=== PATIENT | female | born 1975 | race Caucasian/White ===

== ENCOUNTER 2017-06-14 16:49 | Emergency (ER) | payer OTHER ==
[2017-06-14 16:56] VITALS: BP 147/84
[2017-06-14] MEDS ORDERED: HYDROcodone/ACETAMIN 5-325 MG* 1 TAB PO ONE (17:09)
--- NOTE | 2017-06-14 17:09 | UC ---
Lower Extremity/Ankle HPI - HPI Summary HPI Summary: was walking a lot yesterday today right foot is swollen and tender hurts to wb on lateral edge - History of Current Complaint Chief Complaint: UCLowerExtremity Stated Complaint: FOOT COMPLAINT Time Seen by Provider: 06/14/17 16:58 Hx Obtained From: Patient Hx Last Menstrual Period: 06/14/17 ?: No Onset/Duration: Sudden Onset, Lasting Days - 1, Still Present Severity Initially: Moderate Severity Currently: Moderate Pain Intensity: 6 Pain Scale Used: 0-10 Numeric Aggravating Factor(s): Standing, Ambulation Alleviating Factor(s): Rest, Elevation Able to Bear Weight: Yes - with pain - Allergies/Home Medications Allergies/Adverse Reactions: Allergies Allergy/AdvReac Type Severity Reaction Status Date / Time No Known Allergies Allergy Verified 05/20/17 15:09 PMH/Surg Hx/FS Hx/Imm Hx Previously Healthy: No Cardiovascular History: Cardiac Disease GI/ History: Gastroesophageal Reflux, Other Other GI/ History: kidney disease - Surgical History Surgical History: None - Family History Known Family History: Positive: Hypertension - Social History Occupation: Disabled Lives: With Family Alcohol Use: None Substance Use Type: None Smoking Status (MU): Former Smoker Type: Cigarettes Amount Used/How Often: 1/2 ppd When Did the Patient Quit Smoking/Using Tobacco: 1 year ago Household Exposure Type: Cigarettes Review of Systems Constitutional: Negative Skin: Negative Eyes: Negative ENT: Negative Respiratory: Negative Cardiovascular: Negative Gastrointestinal: Negative Genitourinary: Negative Motor: Negative Neurovascular: Negative Musculoskeletal: Arthralgia - right foot 5th MT, Edema - right lateral foot Neurological: Negative Psychological: Negative All Other Systems Reviewed And Are Negative: Yes Physical Exam Triage Information Reviewed: Yes Appearance: Well-Appearing, Well-Nourished, Pain Distress Vital Signs: Initial Vital Signs Temp 97.9 F 06/14/17 16:52 Pulse 65 06/14/17 16:52 Resp 18 06/14/17 16:52 BP 147/84 06/14/17 16:52 Pulse Ox 98 06/14/17 16:52 Vital Signs Reviewed: Yes Eye Exam: Normal Eyes: Positive: Conjunctiva Clear ENT Exam: Normal ENT: Positive: Normal ENT inspection, Hearing grossly normal. Negative: Nasal congestion, Nasal drainage, Trismus, Muffled/hoarse voice Dental Exam: Normal Neck exam: Normal Neck: Positive: Supple, Nontender Respiratory Exam: Normal Respiratory: Positive: Chest non-tender, Lungs clear, Normal breath sounds, No respiratory distress, No accessory muscle use Cardiovascular Exam: Normal Cardiovascular: Positive: RRR, No Murmur, Pulses Normal, Brisk Capillary Refill Musculoskeletal Exam: Normal Musculoskeletal: Positive: Strength Intact, ROM Intact, No Edema Neurological Exam: Normal Neurological: Positive: Alert, Muscle Tone Normal Psychological Exam: Normal Skin Exam: Normal Diagnostics - Radiology No standard instances Xray Interpretation: No Acute Changes Radiology Interpretation Completed By: Radiologist Lower Extremity Course/Dx - Course Course Of Treatment: cam boot crutches, pain med, rice follow with ortho in 3-5 days - Differential Dx/Diagnosis Differential Diagnosis/HQI/PQRI: Cellulitis, Contusion, Fracture (Closed), Sprain, Strain Provider Diagnoses: Right foot injury Discharge - Discharge Plan Condition: Stable Disposition: HOME Prescriptions: Hydrocodone-Acetaminophen [Hydrocodone/Acetaminophen 5-325 mg] 1 tab PO TID PRN #15 tab MDD 3 PRN Reason: Pain Patient Education Materials: Crutch Instructions (ED), Foot Contusion (ED), Foot Sprain (ED), RICE Therapy (ED) Referrals: Regi Garnica [Primary Care Provider] - 2 Weeks Partha Alberto MD [Medical Doctor] - 5 Days
--- NOTE | 2017-06-14 17:39 | RAD ---
Indication: Right foot pain. 3 views of the right foot demonstrates no fracture. No other bone or joint abnormality is identified. IMPRESSION: No fracture of the right foot is noted.
== END 2017-06-14 18:05 | disposition home or self-care (01) ==
LOC: UCEAST 16:49
DX: S99.921A Unspecified injury of right foot, initial encounter (principal); X58.XXXA Exposure to other specified factors, initial encounter; Y93.01 Activity, walking, marching and hiking; K21.9 Gastro-esophageal reflux disease without esophagitis; N28.9 Disorder of kidney and ureter, unspecified; I25.10 Atherosclerotic heart disease of native coronary artery without angina pectoris; Z87.891 Personal history of nicotine dependence
CPT/HCPCS: 99213; G0463

== ENCOUNTER → 2017-08-14 15:27 | Emergency (ER) | payer OTHER ==
[~2017-08-14 15:27] MED LIST: Ketorolac INJ* 30 MG/ML 1 ML VIAL IV PUSH ONE; Magnesium Oxide TAB* 400 MG PO ONE; Meclizine TAB* 12.5 MG PO ONE; Metoclopramide IV* 5 MG/ML 2 ML VIAL IV ONE; Ondansetron INJ* 2 MG/ML VIAL IV ONE
--- NOTE | 2017-08-14 18:10 | RAD ---
INDICATION: Nausea and dizziness for one week. Elevated blood pressure. Renal failure. Asthma. COMPARISON: October 05, 2016 chest radiograph. TECHNIQUE: Dual energy PA and routine lateral views of the chest were obtained. REPORT: Clear lungs and pleural spaces. Negative for pneumothorax. The heart, pulmonary vasculature, and mediastinal contours are unremarkable. Negative for free air beneath the diaphragm. Unremarkable osseous structures and soft tissue contours. IMPRESSION: No evidence for acute intrathoracic disease.
--- NOTE | 2017-08-14 18:14 | RAD ---
Indication: Dizziness, nausea, vomiting, headache 1 week duration. Comparison: June 04, 2017 MRI. Technique: Noncontrast CT vertex of skull through foramen magnum. Report: Unremarkable cerebral sulci, ventricles, and basal cisterns. Unchanged finding of symmetric mildly prominent subarachnoid spaces over the frontal lobes. Negative for avila matter white matter obscuration, intra or extra-axial hemorrhage, or mass effect. Unremarkable orbital contents. No suspicious calvarial or skull base lesion evident. Unremarkable scalp. IMPRESSION: No acute intracranial process evident.
[2017-08-14 18:15] LABS: Hematocrit 51 % (35-47); Hemoglobin 17.7 g/dl (12.0-16.0); Mean Corpuscular HGB Conc 35 g/dl (31-36); Mean Corpuscular Hemoglobin 32 pg (27-31); Mean Corpuscular Volume 91 fL (80-97); Mean Platelet Volume 9 um3 (7.4-10.4); Red Cell Distribution Width 14 % (10.5-15); White Blood Count 9.1 10^3/ul (3.5-10.8)
[2017-08-14 18:16] LABS: Comments Flag Yes
[2017-08-14 18:19] LABS: Add Diff/Slide Review? Slide Review Added
[2017-08-14 18:30] LABS: Albumin 4.3 g/dL (3.2-5.2); BUN/Creatinine Ratio 8.9 (8-20); C Reactive Protein 2.62 mg/L (< 5.00); Calcium 9.9 mg/dL (8.6-10.3); EGFR African American 18.7 (>60); EGFR Non-African American 14.5 (>60); Globulin 2.9 g/dL (2-4); Magnesium 1.7 mg/dL (1.9-2.7); Potassium 4.8 mmol/L (3.5-5.0); Total Bilirubin 0.6 mg/dL (0.2-1.0); Total Protein 7.2 g/dL (6.4-8.9)
[2017-08-14 18:33] LABS: Urine Bacteria 1+ (Absent); Urine Bilirubin Negative (Negative); Urine Glucose Negative (Negative); Urine Nitrite Negative (Negative)
[2017-08-14 19:07] LABS: TSH (Thyroid Stimulating Horm) 8.48 mcIU/mL (0.34-5.60)
[2017-08-14 19:27] VITALS: BP 158/96
--- NOTE | 2017-08-16 18:28 | ED ---
Abilio Terry Alfonso scribed for Richardson Bautista MD on 08/14/17 at 1716 . Dizziness - HPI Summary HPI Summary: This patient is a 41 year old F presenting to [facility] accompanied by with a chief complaint of room spinning dizziness since one week ago. The patient rates the pain 9/10 in severity. Symptoms alleviated by nothing. Patient reports nausea, vomiting, and headache. Patient denies ear ache, rhinorrhea, sore throat, CP, palpation, blurred vision, and change in speech. - History Of Current Complaint Chief Complaint: EDDizziness Stated Complaint: DIZZY/NAUSEA/STAGE 5 RENAL FAILURE Time Seen by Provider: 08/14/17 16:53 Hx Obtained From: Patient Timing: Constant Severity Currently: Severe Character: Room Spinning Alleviating Factor(s): Nothing Associated Signs And Symptoms: Positive: Other: - Patient reports nausea, vomiting, and headache. Patient denies ear ache, rhinorrhea, sore throat, CP, palpation, blurred vision, and change in speech. - Allergies/Home Medications Allergies/Adverse Reactions: Allergies Allergy/AdvReac Type Severity Reaction Status Date / Time No Known Allergies Allergy Verified 06/30/17 14:32 PMH/Surg Hx/FS Hx/Imm Hx Endocrine/Hematology History: Reports: Hx Anemia Denies: Hx Diabetes, Hx Thyroid Disease Cardiovascular History: Reports: Hx Hypertension Denies: Hx Pacemaker/ICD Respiratory History: Reports: Hx Asthma Denies: Hx Chronic Obstructive Pulmonary Disease (COPD) GI History: Reports: Hx Gastroesophageal Reflux Disease Denies: Hx Ulcer History: Reports: Hx Chronic Renal Failure - stage 4, w/ polycystic kidney disease, Hx Renal Disease Sensory History: Denies: Hx Hearing Aid Neurological History: Reports: Hx Headaches, Hx Migraine, Hx Transient Ischemic Attacks (TIA) Psychiatric History: Reports: Hx Panic Disorder Infectious Disease History: No Infectious Disease History: Denies: Hx Clostridium Difficile, Hx Hepatitis, Hx Human Immunodeficiency Virus (HIV), Hx of Known/Suspected MRSA, Hx Shingles, Hx Tuberculosis, Hx Known/ Suspected VRE, Hx Known/Suspected VRSA, History Other Infectious Disease, Traveled Outside the [place] in Last 30 Days - Family History Known Family History: Positive: Hypertension - Social History Alcohol Use: None Substance Use Type: Reports: None Smoking Status (MU): Former Smoker Type: Cigarettes Amount Used/How Often: 1/2 ppd Review of Systems Negative: Blurred Vision Negative: Sore Throat, Ear Ache Negative: Palpitations, Chest Pain Positive: Vomiting, Nausea Neurological: Other - Room spinning dizziness; negative change in speech Positive: Headache All Other Systems Reviewed And Are Negative: Yes Physical Exam - Summary Physical Exam Summary: VITAL SIGNS: Reviewed. GENERAL: Patient is a well-developed and nourished female who is lying comfortable in the stretcher. Patient is not in any acute respiratory distress. HEAD AND FACE: No signs of trauma. No ecchymosis, hematomas or skull depressions. No sinus tenderness. Positive vertigo on head movement. EYES: PERRLA, EOMI x 2, No injected conjunctiva, no nystagmus. No photophobia. EARS: Hearing grossly intact. Ear canals and tympanic membranes are within normal limits. MOUTH: Oropharynx within normal limits. NECK: Supple, trachea is midline, no adenopathy, no JVD, no carotid bruit, no c- spine tenderness, neck with full ROM. No meningeal signs, no Kernig's or brudzinskis signs. CHEST: Symmetric, no tenderness at palpation LUNGS: Clear to auscultation bilaterally. No wheezing or crackles. CVS: Regular rate and rhythm, S1 and S2 present, no murmurs or gallops appreciated. ABDOMEN: Soft, non-tender. No signs of distention. No rebound no guarding, and no masses palpated. Bowel sounds are normal. EXTREMITIES: FROM in all major joints, no edema, no cyanosis or clubbing. NEURO: Alert and oriented x 3. No acute neurological deficits. Speech is normal and follows commands. SKIN: Dry and warm GCS: 15 Triage Information Reviewed: Yes Vital Signs On Initial Exam: Initial Vitals Temp Pulse Resp BP Pulse Ox 96.4 F 75 20 186/103 98 08/14/17 15:37 08/14/17 15:37 08/14/17 15:37 08/14/17 15:37 08/14/17 15:37 Vital Signs Reviewed: Yes - Kajal Coma Scale Coma Scale Total: 15 Diagnostics - Vital Signs Vital Signs Temp Pulse Resp BP Pulse Ox 08/14/17 16:43 67 98 08/14/17 16:41 186/156 08/14/17 15:37 96.4 F 75 20 186/103 98 - Laboratory Lab Results: Lab Results 08/14/17 08/14/17 08/14/17 Range/Units 18:02 18:02 18:02 WBC 9.1 (3.5-10.8) 10^3/ul RBC 5.60 H (4.0-5.4) 10^6/ul Hgb 17.7 H (12.0-16.0) g/dl Hct 51 H (35-47) % MCV 91 (80-97) fL MCH 32 H (27-31) pg MCHC 35 (31-36) g/dl RDW 14 (10.5-15) % Plt Count 173 (150-450) 10^3/ul MPV 9 (7.4-10.4) um3 Neut % (Auto) 69.6 (38-83) % Lymph % (Auto) 19.8 L (25-47) % [place] % (Auto) 7.4 (1-9) % Eos % (Auto) 2.3 (0-6) % Baso % (Auto) 0.9 (0-2) % Absolute Neuts (auto) 6.4 (1.5-7.7) 10^3/ul Absolute Lymphs (auto) 1.8 (1.0-4.8) 10^3/ul Absolute Monos (auto) 0.7 (0-0.8) 10^3/ul Absolute Eos (auto) 0.2 (0-0.6) 10^3/ul Absolute Basos (auto) 0.1 (0-0.2) 10^3/ul Absolute Nucleated RBC 0.08 10^3/ul Nucleated RBC % 0.9 Sodium 136 (133-145) mmol/L Potassium 4.8 (3.5-5.0) mmol/L Chloride 106 (101-111) mmol/L Carbon Dioxide 24 (22-32) mmol/L Anion Gap 6 (2-11) mmol/L BUN 31 H (6-24) mg/dL Creatinine 3.47 H (0.51-0.95) mg/dL Est GFR ( Amer) 18.7 (>60) Est GFR (Non-Af Amer) 14.5 (>60) BUN/Creatinine Ratio 8.9 (8-20) Glucose 93 (70-100) mg/dL Calcium 9.9 (8.6-10.3) mg/dL Magnesium 1.7 L (1.9-2.7) mg/dL Total Bilirubin 0.60 (0.2-1.0) mg/dL AST 15 (13-39) U/L ALT 10 (7-52) U/L Alkaline Phosphatase 44 (34-104) U/L Total Creatine Kinase 35 (10-223) U/L Troponin I 0.00 (<0.04) ng/mL C-Reactive Protein 2.62 (< 5.00) mg/L B-Natriuretic Peptide 15 ( - 100) pg/mL Total Protein 7.2 (6.4-8.9) g/dL Albumin 4.3 (3.2-5.2) g/dL Globulin 2.9 (2-4) g/dL Albumin/Globulin Ratio 1.5 (1-3) TSH 8.48 H (0.34-5.60) mcIU/mL Urine Color Urine Appearance Urine pH (5-9) Ur Specific [place] (1.010-1.030) Urine Protein (Negative) Urine Ketones (Negative) Urine Blood (Negative) Urine Nitrate (Negative) Urine Bilirubin (Negative) Urine Urobilinogen (Negative) Ur Leukocyte Esterase (Negative) Urine WBC (Auto) (Absent) Urine RBC (Auto) (Absent) Ur Squamous Epith Cells (Absent) Urine Bacteria (Absent) Urine Glucose (Negative) 08/14/17 Range/Units 18:02 WBC (3.5-10.8) 10^3/ul RBC (4.0-5.4) 10^6/ul Hgb (12.0-16.0) g/dl Hct (35-47) % MCV (80-97) fL MCH (27-31) pg MCHC (31-36) g/dl RDW (10.5-15) % Plt Count (150-450) 10^3/ul MPV (7.4-10.4) um3 Neut % (Auto) (38-83) % Lymph % (Auto) (25-47) % [place] % (Auto) (1-9) % Eos % (Auto) (0-6) % Baso % (Auto) (0-2) % Absolute Neuts (auto) (1.5-7.7) 10^3/ul Absolute Lymphs (auto) (1.0-4.8) 10^3/ul Absolute Monos (auto) (0-0.8) 10^3/ul Absolute Eos (auto) (0-0.6) 10^3/ul Absolute Basos (auto) (0-0.2) 10^3/ul Absolute Nucleated RBC 10^3/ul Nucleated RBC % Sodium (133-145) mmol/L Potassium (3.5-5.0) mmol/L Chloride (101-111) mmol/L Carbon Dioxide (22-32) mmol/L Anion Gap (2-11) mmol/L BUN (6-24) mg/dL Creatinine (0.51-0.95) mg/dL Est GFR ( Amer) (>60) Est GFR (Non-Af Amer) (>60) BUN/Creatinine Ratio (8-20) Glucose (70-100) mg/dL Calcium (8.6-10.3) mg/dL Magnesium (1.9-2.7) mg/dL Total Bilirubin (0.2-1.0) mg/dL AST (13-39) U/L ALT (7-52) U/L Alkaline Phosphatase (34-104) U/L Total Creatine Kinase (10-223) U/L Troponin I (<0.04) ng/mL C-Reactive Protein (< 5.00) mg/L B-Natriuretic Peptide ( - 100) pg/mL Total Protein (6.4-8.9) g/dL Albumin (3.2-5.2) g/dL Globulin (2-4) g/dL Albumin/Globulin Ratio (1-3) TSH (0.34-5.60) mcIU/mL Urine Color Straw Urine Appearance Clear Urine pH 5.0 (5-9) Ur Specific [place] 1.005 L (1.010-1.030) Urine Protein 1+(30 mg/dl) H (Negative) Urine Ketones Negative (Negative) Urine Blood 2+ H (Negative) Urine Nitrate Negative (Negative) Urine Bilirubin Negative (Negative) Urine Urobilinogen Negative (Negative) Ur Leukocyte Esterase Negative (Negative) Urine WBC (Auto) Trace(0-5/hpf) (Absent) Urine RBC (Auto) 2+(6-10/hpf) H (Absent) Ur Squamous Epith Cells Present H (Absent) Urine Bacteria 1+ H (Absent) Urine Glucose Negative (Negative) Result Diagrams: 08/14/17 18:02 08/14/17 18:02 Lab Statement: Any lab studies that have been ordered have been reviewed, and results considered in the medical decision making process. - Radiology CXR Radiology Interpretation Completed By: Radiologist - No evidence for acute intrathoracic disease. ED physician has reviewed this radiology report and agrees. - CT Brain CT Interpretation Completed By: Radiologist - No acute intracranial process evident. ED physician has reviewed this radiology report and agrees. - EKG 1802 Cardiac Rate: NL - BPM 60 EKG Rhythm: Sinus Rhythm EKG Interpretation: No ST elevation. Normal axis. Q waves in II III and AVF. Dizzy Course/Dx - Course Assessment/Plan: This patient is a 41 year old F presenting to [facility] accompanied by with a chief complaint of room spinning dizziness since one week ago. The patient rates the pain 9/10 in severity. Symptoms alleviated by nothing. Patient reports nausea, vomiting, and headache. Patient denies ear ache, rhinorrhea, sore throat, CP, palpation, blurred vision, and change in speech. Test results show an H&H of 17.7/51. BUN of 31 and creating of 3.47 which is her baseline since she has stage 4 chronic renal failure. Magnesium of 1.7 for which she was given magnesium PO. Urinalysis was contaminated therefore culture will be sent. An EKG reveals NSR. CXR reveals No evidence for acute intrathoracic disease. ED physician has reviewed this radiology report and agrees. Brain CT reveals No acute intracranial process evident. ED physician has reviewed this radiology report and agrees. I decided to do a bran CT because this vertigo is different than her usual vertigo. In the ED course the patient was given Antivert for the vertigo, IV fluids, and then she developed a headache for which he was given Reglan and Toradol. After these medications were given her symptoms improved. Therefore she will be discharged with PCP follow up. The patient is agreeable with this plan. The patient is hemodynamically stable and alert and oriented x3. - Diagnoses Provider Diagnoses: Vertigo, Headache, Chronic renal failure Discharge - Discharge Plan Condition: Stable Disposition: HOME Patient Education Materials: Vertigo (ED), Acute Headache (ED), Chronic Kidney Disease (ED) Referrals: Regi Garnica [Primary Care Provider] - 3 Days Additional Instructions: RETURN TO THE EMERGENCY DEPARTMENT FOR CHANGING OR WORSENING SYMPTOMS. The documentation as recorded by the Abilio ewing Alfonso accurately reflects the service I personally performed and the decisions made by , Richardson Bautista MD.
== END | disposition home or self-care (01) ==
LOC: ED 15:27
DX: R42 Dizziness and giddiness (principal); R51 Headache; R11.2 Nausea with vomiting, unspecified; N18.4 Chronic kidney disease, stage 4 (severe); I10 Essential (primary) hypertension; J45.909 Unspecified asthma, uncomplicated; K21.9 Gastro-esophageal reflux disease without esophagitis; F41.0 Panic disorder [episodic paroxysmal anxiety]; Z87.891 Personal history of nicotine dependence
CPT/HCPCS: 36415; 70450; 71020; 80053; 81003; 81015; 82550; 83735; 83880; 84443; 84484; 85025; 86140; 87086; 93005; 96374; 96375; 99282; A9270-GY; J1885; J2405; J2765

== ENCOUNTER 2017-12-22 10:15 | Emergency (ER) | payer OTHER ==
[2017-12-22 10:46] LABS: ABS Basophils 0.1 10^3/ul (0-0.2); ABS Eosinophils 0.1 10^3/ul (0-0.6); ABS Lymphocytes 1.4 10^3/ul (1.0-4.8); ABS Monocytes 0.5 10^3/ul (0-0.8); ABS Neutrophils 4.3 10^3/ul (1.5-7.7); ABS Nucleated RBC 0 10^3/ul; Eosinophil % 2.3 % (0-6); Hematocrit 45 % (35-47); Hemoglobin 15.7 g/dl (12.0-16.0); Lymphocyte % 21.8 % (25-47); Mean Corpuscular HGB Conc 35 g/dl (31-36); Mean Corpuscular Hemoglobin 32 pg (27-31); Mean Corpuscular Volume 92 fL (80-97); Mean Platelet Volume 10 um3 (7.4-10.4); Nucleated Red Blood Cells % 0; Platelet Count 132 10^3/ul (150-450); Red Blood Count 4.94 10^6/ul (4.0-5.4); Red Cell Distribution Width 14 % (10.5-15); White Blood Count 6.5 10^3/ul (3.5-10.8)
[2017-12-22 11:18] LABS: EGFR Non-African American 11.4 (>60)
--- OUTSIDE RECORDS SUMMARY | 2017-12-22 12:46 | XMS REPORT ---
:1975 External Reference #:[id number] Author Organization [facility] Address [address] [address] Phone [phone] Care Team Providers Name Role Phone Eli Oliveira MD Care Team Information Talent Advisor Unavailable Payers Type Date Identification Numbers Payment Provider Subscriber Commercial Effective: Policy Number: Matt Toney 2011 [id number] PayID: [id number] [address] [place] [address] Problems Date Description Provider Status Onset: 05/23/2015 Mixed hyperlipidemia Eli Oliveira MD Active Onset: 09/07/2015 Essential hypertension Regi Garnica RN MS Active [employer] HOU[employer]OM OPERATOR Onset: 10/15/2016 Chronic kidney disease Prashanth Davidson PA Active Onset: 10/15/2016 Chronic obstructive lung disease Prashanth Davidson PA Active Onset: 10/15/2016 Smoker Prashanth Davidson PA Active Onset: 02/04/2007 Benign essential hypertension Regi Garnica RN MS Inactive [employer] HOUSE [employer]OL ROOM OPERATOR Inactive: 10/15/2016 Family History Date Family Member(s) Problem(s) Comments Father Hypertension Father Polycystic Kidney Disease Mother Asthma Mother COPD Mother Hypertension Mother Hypercholesterolemia Mother Anxiety Maternal Grandmother Hypercholesterolemia Maternal Grandmother Hypertension Maternal Grandmother CAD Maternal Grandmother CABG x 3 Social History Type Date Description Comments Cigarette Use Quit - Age 40 Smoking Patient is a former smoker Quit at age 40. 20yr at 0.5pk/day Daily Caffeine Consumes on average 1 soda per day Allergies, Adverse Reactions, Alerts Date Description Reaction Status Severity Comments 02/12/2006 NKDA active Medications Medication Date Status Form Strength Qnty SIG Indications Ordering Provider Oseltamivir 12/01/ Hx Capsules 75mg 10cap 1 by mouth J06.9 [place], Phosphate 2018 - s twice a day Eli 12/06/ for 5days MD Zofia 2018 Atorvastatin 11/26/ Active Tablets 10mg 90tab 1 by mouth E78.2 Danika Calcium 2018 s every day Regi Tang RN MS [employer] ROOM OPERATOR 8 Hour 11/26/ Active Tablets ER 650mg 90tab one Tab M25.569 Danika Arthritis Pain 2018 s tid For Regi Reliever Arthritis Clyde RN MS Pain [employer] ROOM OPERATOR Ondansetron 11/26/ Active Tablets 4mg 30tab one tab as R11.10 Danika, HCL 2018 s needed Regi every 8 Clyde RN MS hours for [employer] ROOM OPERATOR nausea Lorazepam 11/18/ Active Tablets 0.5mg 4tabs 1-2 tabs F41.1 Danika, 2018 11/04-1 Regi hours Clyde RN MS Prior To [employer] ROOM OPERATOR [employer] Diltiazem CD 07/24/ Active Caps ER 240mg 30cap 1 by mouth I10 Danika, 2016 24HR s every day Regi Per Clyde ELIZONDO, RN MS Hessin [employer] ROOM OPERATOR KP Aspirin 07/24/ Active Tablets DR 81mg 30tab 1 by mouth Danika, 2016 s every day Regi Per Neuro Clyde RN MS [employer] ROOM OPERATOR Magnesium 07/24/ Active Capsules 400mg 90cap one once a N18.4 Marcia Garnica 2016 s day Regi Tang RN MS [employer] ROOM OPERATOR Calcitriol 05/27/ Active Capsules 0.25mcg 90cap one cap Danika, 2016 s daily Regi Tang RN MS [employer] ROOM OPERATOR Baclofen 05/23/ Active Tablets 10mg 60tab 1 tab twice M79.605 Danika, 2016 s a day as Regi needed for Clyde RN MS muscle [employer] ROOM OPERATOR spasms Flintstones 03/03/ Active Chewtabs 1 tablet Roxanne, Plus Iron 2016 twice daily Eli Armijo MD Albuterol 01/02/ Active Nebulizer (2.5mg/3ML 750ml 1 vial in J06.9 Danika, Sulfate 2016 ) 0.083% neb. q4hr Regi as needed Clyde RN MS [employer] ROOM OPERATOR Cetirizine HCL 11/08/ Active Tablets 10mg 90tab take one J45.40 Danika, 2016 s tablet by Regi mouth every C, RN MS day for [employer] ROOM OPERATOR allergy symptoms Advair Diskus 10/15/ Active Aerosol 250-50mcg/ 60uni Inhale One J45.40 Danika, 2015 Dose ts puff By Regi Mouth Twice C, RN MS A Day [employer] ROOM OPERATOR Ipratropium 09/11/ Active Solution 0.5-2.5(3) 360un Inhale The J45.40 Danika [place] 2016 mg/3ML its Contents Of Regi rol Sulfate One Vial C, RN MS Via [employer] ROOM OPERATOR Nebulizer Four Times A Day For 7 Days Oxycodone-Acet 10/09/ Active Tablets 5-325mg 60tab 1 tablet by R51 Danika aminophen 2014 s mouth twice Regi a day as C, RN MS needed for [employer] ROOM OPERATOR pain Furosemide 10/09/ Active Tablets 20mg 30tab take 1 tab Saridam, 2014 s everyday Eli MD Zoifa Hydroxyzine 08/24/ Active Tablets 10mg 45tab take one to F41.1 Roxanne HCL 2014 s three Eli tablets by MD Zofia mouth every 6 hours as needed for anxiety may take3- 5 tablets by mouth at bedtime for sleep Escitalopram 08/24/ Active Tablets 10mg 90tab Take One F41.1 Danika Oxalate 2014 s Tablet By Regi Mouth Every C, RN MS Day [employer] ROOM OPERATOR Meclizine HCL 02/15/ Active Tablets 25mg 30tab 1/2-1 by 386.11 Danika 2014 s mouth three Regi times a day C, RN MS as needed [employer] ROOM OPERATOR Ventolin HFA 04/01/ Active Aerosol 108(90Base 18uni Inhale Two J45.40 Danika, 2012 ) mcg/Act ts Puffs By Regi Mouth Every C, RN MS 6 To 8 [employer] ROOM OPERATOR Hours as Needed Lisinopril 04/16/ Active Tablets 30mg 90tab take one I10 Danika 2011 s tablet by Regi mouth every C, RN MS day [employer] ROOM OPERATOR Omeprazole 04/16/ Active Capsules DR 40mg 30cap Take One K21.9 Roxanne 2011 s Capsule By Eli Mouth Every MD Zofia Day R10.13 Nortriptyline 12/10/2010 Active Capsules 25mg 30caps Take One G43.109 JAMAL Garnica Capsule By Regi Mouth At C, RN MS Bedtime [employer] ROOM OPERATOR Singulair 12/12/2004 Active Tablets 10mg 90tabs take one J45.20 Danika, tablet by Regi mouth every C, RN MS day [employer] ROOM OPERATOR Azithromycin 09/22/2017 Hx Tablets 500mg 3tabs 1 by mouth J15.9 Roxanne , - every day Eli 10/02/2017 MD Zofia Guaifenesin-Code 09/22/2017 Hx Syrup 100-1 180ml 5ml by J15.9 Roxanne, ine - 0mg/5 mouth every Eli 10/02/2017 ML 4 hours as MD Zofia needed cough Magnesium-Oxide 07/24/2017 Hx Tablets 400(2 90tabs take one N18.4 Danika, - 41.3m tablet by Regi 07/24/2017 g) mg mouth every C, RN MS day [employer] ROOM OPERATOR 8 Hour Pain 05/23/2017 Hx Tablets ER 650mg Arthritis M79.604 Danika, Relief - Pain Med, [facility] 11/26/2017 Tylenol Up Clyde RN MS To 3 Times [employer] HOUSE [employer] ROOM OPERATOR A Day. Ativan 05/23/2017 Hx Tablets 0.5mg 4tabs 1-2 tabs F41.1 Danika, - 1/2-1 [facility] 11/18/2017 hours HANSEL Tang MS Prior To [employer] ROOM OPERATOR [employer] Please Consider 05/23/2017 Hx stage 4 Danika, Excusing From - kidney [facility] [employer] 11/26/2017 disease, C RN MS needs freq [employer] ROOM OPERATOR bathroom breaks, migraine headache freq, recent TIA attack, need no stress at this time, Promethazine HCL 05/01/2017 Hx Suppository 25mg 12units one per Danika , - rectum as [facility] 11/26/2017 needed ( Clyde RN MS after [employer] ROOM OPERATOR unwrapping) for nausea or vomiting every 6-8 hours Amoxicillin 03/03/2017 Hx Capsules 500mg 10caps 500 mg 1 Macadam, - tab every Eli 04/23/2017 12 hours x MD Zofia 5 days Vitamin D 01/02/2017 Hx Capsules 61991 10caps one cap E55.9 Danika, (Ergocalciferol) - Unit weekly x 10 Regi 03/03/2017 weeks HANSEL Tang MS [employer] ROOM OPERATOR Prednisone 01/02/2017 Hx Tablets 10mg 30tabs 4 tabs q am J06.9 Danika, - x3 days Regi 05/01/2017 then 3tabs C, RN MS x 3 days, [employer] ROOM OPERATOR then2 tabs x3 d then 1tabs x3d Duloxetine HCL 11/08/[address] Part 30mg 90caps Once Daily, F33.9 Danika, - Increase To Regi 03/03/2017 2 Tabs C, RN MS After 2 [employer] ROOM OPERATOR Weeks If No Change Nicotrol 10/15/2016 Hx Inhaler 10mg 168unit Inhale 1 F17.210 Macadam, - s every Eli 04/23/2017 2-3hrs prn MD Zofia Biaxin 09/17/2016 Hx Tablets 500mg 20tabs One Tab bid R06.02 Danika, - X 10 Days [facility] 09/27/2016 C, RN MS [employer] ROOM OPERATOR Mucinex 09/11/2016 Hx Tablets ER 600mg 30tabs 1 tab per J45.40 [place], - 12HR oral twice Eli 04/23/2017 a day MD Zofia Cheratussin ac 08/23/2016 Hx Solution 100-1 118ml 1- teaspoon R06.02 Danika, - 0mg/5 at bedtime, [facility] 09/02/2016 ML may repeat C, RN MS x 1 after 4 [employer] ROOM OPERATOR hours if still needed Biaxin 08/23/2016 Hx Tablets 500mg 20tabs One Tab bid R06.02 Danika, - X 10 Days Regi 09/11/2016 C, RN MS [employer] ROOM OPERATOR Prednisone 08/23/2016 Hx Tablets 10mg 30tabs 4 tabs q am R06.02 Danika, - x3 days Regi 09/02/2016 then 3tabs C, RN MS x 3 days, [employer] ROOM OPERATOR then2 tabs x3 d then 1tabs x3d Cheratussin ac 11/23/2015 Hx Solution 100-1 120unit 1-2 J20.9 Danika, - 0mg/5 s teaspoon at [facility] 08/08/2016 ML bedtime, C, RN MS may repeat [employer] ROOM OPERATOR x 1 after 4 hours if still needed Biaxin 11/23/2015 Hx Tablets 500mg 14tabs On Tab bid J20.9 Danika, - Till Gone Regi 08/08/2016 C, RN MS [employer] ROOM OPERATOR Mirapex 11/23/2015 Hx Tablets 0.125 90tabs Take 2-3 G25.81 [place], - mg Hours Regi 03/03/2017 Before Bed, Clyde RN MS May Cause [employer] HOUSE CONTROL ROOM OPERATOR Daytime Drowsiness, Avoid Driving Levaquin 10/13/2015 Hx Tablets 500mg 50tabs once tab R31.9 Danika, - daily x 5 Regi 11/23/2015 days Clyde RN MS [employer]SE [employer] ROOM OPERATOR Cipro 10/13/2015 Hx Tablets 250mg 14tabs 1 by mouth R31.9 Danika, - twice a day Regi 11/23/2015 x 7 days Clyde RN MS [employer] ROOM OPERATOR Sumatriptan 10/12/2015 Hx Tablets 50mg Gavino, Succinate - [facility] 10/12/2015 MD Cari Sumatriptan 10/12/2015 Hx Tablets 100mg 30tabs take 1/2 to Gavino, Succinate - 1 tablet by [facility] 08/08/2016 mouth at MD Cari earliest onset of headache, may repeat once in 2 hours - max dose 2 tab qday Topamax 10/11/2015 Hx Tablets 25mg 30tabs take 1/2 Gavino, - tabs by [facility] 08/08/2016 mouth in in MD Cari the morning, may try up to 1 tab in 1 week if tolerated and additional benefit desired Maxalt-SLOT ATTENDANT 10/11/2015 Hx Tablets 10mg 12tabs take 1 Gavino, - Dispers tablet at [facility] 10/12/2015 onset of MD Cari aura, may repeat 1 dose in 2 hours maximum daily dose=2 tablets Doxazosin 06/23/2015 Hx Tablets 2mg One Tab bid I10 [place], Mesylate - Per Nephro Regi 03/03/2017 Clyde RN MS [employer] ROOM OPERATOR Feosol 05/23/2015 Hx Tablets 325(6 30tabs 1 by mouth D50.9 Roxanne, - 5Fe) every day Eli 03/03/2017 mg with vit c MD Zofia Vitamin B-12 05/23/2015 Hx Tablets 1000m 30tabs 1 by mouth 281.1 Saridam, - cg every day Eli 03/03/2017 MD Zofia Hydrocodone-Acet 06/01/2014 Hx Tablets 5-325 30tabs 1 tab by M54.31 Roxanne, aminophen - mg mouth tid [facility] 10/15/2016 as needed MD Zofia pain Amlodipine 06/01/2014 Hx Tablets 5mg 90tabs 1 by mouth I10 Danika, Besylate - every day Regi 03/03/2017 C, RN MS [facility] Labetalol HCL 06/01/2014 Hx Tablets 200mg 180tabs Take One I10 Danika, - Tablet By [facility] 07/24/2017 Mouth Twice C, RN MS A Day [employer] ROOM OPERATOR Robitussin ac 09/28/2013 Hx 240unit 10 ml qid 493.00 Roxanne, - s prn Eli 10/14/2013 MD Zofia Clarithromycin 02/10/2013 Hx Tablets 500mg 20tabs 1 po bid x 461.0 Macadam, - 10 d hold Eli 10/14/2013 simvastatin MD Zofia and nortriptili ne during Nicotine 01/14/2013 Hx Gum 2mg QS use as 305.1 Danika Polacrilex - directed [facility] 06/01/2014 C RN MS [facility] Kym 12/22/2012 Hx Tablets 180mg OTC One Daily 386.11 Danika, - uses for [facility] 10/15/2016 rash d/t C, RN MS desi [employer]OL ROOM OPERATOR exposure iin summer. Meclizine HCL 2012 Hx Tablets 25mg 30tabs 1/2-1 po 780.4 Danika, - tid prn [facility] 01/14/2013 C, RN MS [employer] ROOM OPERATOR Furosemide 10/15/2012 Hx Tablets 20mg 30tabs 1 by mouth 585.3 Danika, - every day Regi 06/12/2015 C, RN MS [employer] ROOM OPERATOR Simvastatin 10/15/2012 Hx Tablets 20mg 30tabs take one E78.2 Danika, - tablet by [facility] 11/26/2017 mouth every C, RN MS day before [employer] ROOM OPERATOR bed Hydrocodone/Acet 04/16/2012 Hx Tablets 5-325 20tabs 1-2 tabs q6 724.5 Danika aminophen - mg hrs prn [facility] 09/28/2013 severe pain C, RN MS [employer] ROOM OPERATOR Klaron 04/16/2012 Hx Lotion 10% 1units bid as 695.3 Danika, - Directed [facility] 03/03/2017 Clyde RN MS [employer] ROOM OPERATOR Calcitriol 03/03/2012 Hx Capsules 0.25m Once Daily 782.1 Danika, - cg Regi 03/03/2017 Clyde, RN MS [employer] ROOM OPERATOR Metronidazole 03/03/2012 Hx Gel 0.75% 1units apply to 695.3 Danika, - face bid Regi 12/22/2012 Clyde, RN MS [employer] ROOM OPERATOR Dexilant 03/03/[address] 60mg 30caps once daily 782.1 Danika, - Regi 04/16/2012 Clyde, RN MS [employer] ROOM OPERATOR Cyclobenzaprine 01/27/2012 Hx Tablets 10mg 30tabs Take 1/2 To 333.94 Danika, HCL - 1 Tablet By Regi 06/01/2014 Mouth At C, RN MS Bedtime as [employer]OL ROOM OPERATOR Needed For Leg Spasm Tramadol HCL 01/14/2012 Hx Tablets 50mg 60tabs take 1 784.0 Danika, - TAblet up Regi 06/01/2014 to 4 times C, RN MS a day as [employer] ROOM OPERATOR needed for pain. 724.5 Fluticasone 01/14/2012 - Hx Suspension 50mcg/Act 1units one spray R51 Danika, Propionate 10/09/2015 per each Regi nostril qd Clyde RN MS [employer] ROOM OPERATOR Ipratropium 10/01/2011 - Hx Solution 0.02% 60units use in J45.3 Danika, [place] 09/11/2016 nebulizer 0 Regi four times a Clyde, RN MS day [employer] ROOM OPERATOR J45.40 J45.998 Pantoprazole 09/30/2011 - Hx Tablets DR 40mg 90tabs 1 po qd 530.11 Danika, Sodium 04/16/2012 Regi Tang RN MS [employer] ROOM OPERATOR Clarithromycin 09/30/2011 - Hx Tablets 500mg 28tabs 1 po bid x 466.0 [place], 01/14/2012 14 d Eli Armijo MD Medrol Dosepak 09/30/2011 - Hx Tablets 4mg 1Pack as dir 493.00 Roxanne, 01/14/2012 Eli Armijo MD Robitussin ac 09/30/2011 - Hx 120ml 10 ml qid 493.00 [place], 01/14/2012 prn Eli Armijo MD Chantix 09/06/2011 - Hx Tablets 0.5mg 1tabs starter 305.1 Danika, 01/14/2012 pack, use as Regi directed Clyde RN MS [employer] ROOM OPERATOR Chantix 09/06/2011 - Hx Tablets 1mg 60tabs 1 po bid 305.1 [place], 12/22/2012 with lots of Regi Tang RN MS [facility] Albuterol Sulfate 03/29/2011 - Hx Nebulizer (2.5mg 1Box 1 vial in J45.40 [facility], 10/15/2016 /3ML) neb. q4hr as Eli 0.083% susu Armijo MD Labetalol HCL 01/16/2011 - Hx Tablets 100mg 60tabs Take One 401.1 [place], 06/01/2014 Tablet By Regi Mouth Twice HANSEL Tang MS A Day [facility] Famvir 12/20/2010 - Hx Tablets 500mg 21tabs 1 po tid x 7 053.9 [place], 01/14/2012 days Regi Tang RN MS [facility] Flexeril 12/20/2010 - Hx Tablets 10mg 30tabs 1/2-1 Tab hs 333.94 [facility], 01/27/2012 prn Leg Eli spasm MD Zofia Nortriptyline HCL 12/10/2010 - Hx Capsules 25mg 90caps 1 po qd hs [place], 12/10/2010 Regi Tang RN MS [facility] Biaxin XL 10/24/2010 - Hx Tablets ER 500mg 20tabs 2 po qd x 10 465.9 [place], 12/20/2010 24HR days Reig Tang RN MS [facility] Biaxin XL 2009 - Hx Tablets ER 500mg 20tabs 2 po qd x 10 465.9 [place], 12/24/2009 24HR days Regi Tang RN [facility] Robitussin ac 2009 - Hx 100cc 1-2 tsp qid 465.9 [place], 12/24/2009 prn cough Regi Tang RN MS [facility] Soma 11/29/2009 - Hx Tablets 250mg 30tabs 1 tab q 6 [place], 11/29/2009 hours prn Regi muscle spasm HANSEL Tang MS [facility] Soma 11/29/2009 - Hx Tablets 350mg 30tabs 1 hs prn [place], 12/20/2010 muscle Regi spasms HANSEL Tang MS [facility] Drisdol 11/29/2009 - Hx Capsules 11559Z 8caps 1 tab po q [place], 01/14/2012 nit weekly for 8 Regi weeks Clyde, RN MS [employer] ROOM OPERATOR Hydrocodone-Aceta 10/25/2009 - Hx Tablets 5-500m 40tabs 1-2 tabs q6 Danika, minophen 04/16/2012 g hrs prn Regi severe pain C, RN MS [employer] ROOM OPERATOR Amoxicillin 08/09/2009 - Hx Tablets 875mg 28tabs 1 po bid 466.0 Danika, 08/29/2009 take till Regi gone( 14 C, RN MS days) [employer] ROOM OPERATOR Atrovent 08/09/2009 - Hx Solution 0.06% 30units use with one 466.0 [place], 08/09/2009 amp of Regi albuterol HANSEL Tang MS tid [employer] ROOM OPERATOR Atrovent 08/09/2009 - Hx Solution 0.03% 60units use with the 466.0 Roxanne, 01/14/2013 albuterol in Eli nebulizer MD Zofia qid Lotrisone 05/26/2009 - Hx Cream 15gm apply bid as 782.1 Trabout, 11/16/2009 directed Kimani, under breast area Chantix 02/21/2009 - Hx Tablets 0.5mg 1tabs starter 305.1 [place], 03/23/2009 pack, use as Regi directed Clyde RN MS [employer] ROOM OPERATOR Lisinopril 02/21/2009 - Hx Tablets 20mg 90tabs Take 1 401.1 Roxanne, 04/16/2012 Tabley By Eli Mouth Once MD Zofia Daily Fexofenadine HCL 10/06/2008 - Hx Tablets 180mg 30tabs 1 Tab Daily 381.81 Danika, 11/16/2009 as Needed Regi For Clyde RN MS Allergies [employer] ROOM OPERATOR Naprosyn 10/06/2008 - Hx Tablets 500mg 60tabs 1 PO bid 625.3 Danika, 07/15/2011 With Food Regi prn Pain Clyde RN MS [employer] ROOM OPERATOR Pulmocort 10/06/2008 - Hx 180mcg Samples 1-2 J45.20 Danika Flexinhaler 10/15/2016 inhalation Regi bid Clyde RN MS [employer] ROOM OPERATOR J45.40 J45.998 Tessalon 10/06/2008 - Hx Capsules 200mg 30caps 1 Tab Q 8 493.00 Danika, 11/16/2009 HRS prn Regi Cough C, RN MS [employer] ROOM OPERATOR Lisinopril 10/06/2008 - Hx Tablets 10mg 90tabs 1 PO qd 401.1 [place], 02/21/2009 Regi Tang RN MS [employer] ROOM OPERATOR Hydrochlorothiazide 10/06/2008 - Hx Tablets 12.5mg 90tabs 1 qd as 401.1 Danika, 03/03/2012 Directed Regi Tang RN MS [employer] ROOM OPERATOR Lisinopril/Hydrochlor 02/24/2008 - Hx Tablets 10-12. 90tabs 1 po qd [place], othiazide 10/31/2008 5 Regi Tang RN MS [employer] ROOM OPERATOR Hydrochlorothiazide 02/24/2008 - Hx Tablets 12.5mg 30tabs 1 qd as [place], 03/25/2008 Directed Regi Tang RN MS [facility] Compazine 09/08/2007 - Hx Tablets 10mg 10tabs 1 PO Q8 558.9 [place], 10/08/2007 Hours prn Regi Tang RN MS Vomiting [facility] Meclizine HCL 09/08/2007 - Hx Tablets 25mg 30tabs 1 Tab hs 386.11 [place], 02/24/2008 Regi Tang RN MS [facility] Nasocort Nasal [place] 03/25/2007 - Hx Samples 2 squirts 381.81 [place], 12/20/2010 each Regi nostrtatiana Tang RN MS once daily [facility] Amoxil 02/09/2007 - Hx Tablets 875mg 20tabs 1 bid For 464.20 [place], 02/19/2007 10 Days Regi Tang RN MS [facility] Fexofenadine 02/04/2007 - Hx Tablets 180mg 90tabs 1 po qd 476.0 [place], 02/24/2008 Regi Tang RN MS [employer] ROOM OPERATOR Amoxicillin 01/23/2007 - Hx Tablets 500mg 30tabs 1 po tid 462 [place], 02/04/2007 Eli Armijo MD Biaxin XL 1 Pac 10/07/2006 - Hx Tablets 500mg 1Pack qd AD 465.9 [place], 2009 Regi Tang RN MS [employer] ROOM OPERATOR Ibuprofen 07/29/2006 - Hx Tablets 600mg 90tabs 1 Q6 HRS 719.42 [place], 10/06/2008 prn Pain Regi Tang RN MS [facility] Biaxin XL 1 Pac 04/28/2006 - Hx Tablets 500mg 14Pills 2 po qd x 466.0 [place], 07/29/2006 7 days Eli Armijo MD Prednisone 02/18/2006 - Hx Tablets 10mg 30tabs 4 tabs for 466.0 [place] , 07/29/2006 3 days,3 Eli tabs for 3 MD Zofia days, 2 tabs for 3 days then 1 tab daily Robitussin A-c 02/18/2006 - Hx Syrup 100mg; 120ml 1-2 tsp q4 466.0 [place], 07/29/2006 10mg/5 hrs prn Eli Armijo MD Albuterol Inhalation 02/12/2006 - Hx Solution 0.083% 1Box i vial in 466.0 [place], 03/29/2011 neb. q4hr Regi Tang RN MS (usually [employer]OL ROOM OPERATOR bid-tid) Azmacort Inhaler 02/12/2006 - Hx Aerosol 100mcg 1units 2 puffs 786.2 [place], 02/04/2007 /[place] tid use Regi Tang RN MS albuterol [employer] ROOM OPERATOR Z-Henrique 02/12/2006 - Hx Tablets 250mg 1Pack as 466.0 [place], 02/12/2006 directed Regi Tang RN MS [employer] ROOM OPERATOR Biaxin XL 2 Pac 02/12/2006 - Hx Tablets 500mg 14tabs 2 tabs qd 466.0 [place], 02/19/2006 x 7 days Regi Tang RN MS [employer] ROOM OPERATOR Nexium 01/09/2005 - Hx Capsules 40mg 60caps 1 [facility] 09[facility]2011 DR on an Kimani yan MD stomach Nortriptyline 12/12/2004 - Hx Capsules 25mg 90caps 1 po qd hs [place], 12/10/2010 Regi Tang RN MS [employer] ROOM OPERATOR Labetalol 12/12/2004 - Hx Tablets 100mg 180tabs 1 po bid [place], 01/16/2011 Regi Tang RN MS [employer] ROOM OPERATOR Albuterol Inhalation 12/12/2004 - Hx Aerosol 90mcg/ 1units 2 puffs [place], 10/14/2013 Dose q6-8 hrs Regi Tang RN MS [employer] ROOM OPERATOR Lisinopril 12/12/2004 - Hx Tablets 10mg 180tabs 1 po [facility], 02/[facility]/2008 Eli Armijo MD Pepcid 12/12/2004 - Hx Tablets 40mg 1 po qd Trabout, 01/09/2005 MD Kimani Benicar HCT 12/12/2004 - Hx Tablets 12.5mg Trabout, 02/12/2006 ;40 mg MD Kimani Fastin 12/12/2004 - Hx 30mg 30units 1 po in Trabout, 03/12/2005 morning 30 Kimani min before MD breakfast Elidel Cream 12/12/2004 - Hx Cream 1% 30gm apply Trabout, 02/12/2006 sparingly Kimani bid MD eyad Medications Administered in Office Medication Date Status Form Strength Qnty SIG Indications Ordering Provider PPD 01/13 Administered Injection Danika, Regi Tang RN MS [employer] ROOM OPERATOR PPD 11/17 Administered Injection Nurses /2009 Schedule Opal PPD 03/16 Administered Injection Nurses /2006 Schedule Opal PPD 03/16 Administered Injection Trabout, MD Kimani PPD 11/14 Administered Injection Trabout, MD Kimani Torodol Injection 03/26 Administered Injection Trabout, 15 MG Dose /2000 MD Kimani Torodol Injection 03/25 Administered Injection Mahesh, 15 MG Dose /2000 Logan Palacio Solumedrol 03/02 Administered Injection Moss Methyprenisolone /2000 Desi, Sodium Succinate RN A.N.P. Up To 40 MG Immunizations CPT Code Status Date Vaccine Lot # [id number] Given 01/14/2012 Tdap (Adacel) Ages 7 And Above Only [id number] 53906 Given 09/14/2007 Afluria Or Fluvirin Flu Vac Intramuscular [id number] Given 09/14/2007 Afluria Or Fluvirin Flu Vac Intramuscular [id number] [id number] Given 10/07/2006 Afluria Or Fluvirin Flu Vac Intramuscular [id number], 41080 Given 08/21/2005 Afluria Or Fluvirin Flu Vac Intramuscular [id number] 53380 Given 10/03/2004 Afluria Or Fluvirin Flu Vac Intramuscular [id number] Refused 11/08/2016 Influenza Vac, 3 Yrs & Older, Quadrivalent, Split, Im Use Vital Signs Date Vital Result Comment 12/01/2017 Body Temperature 98.3 F Weight 239.12 lb Heart Rate 84 /min BP Systolic 153 mmHg BP Diastolic 93 mmHg Height 67 inches 5'7" BMI (Body Mass Index) 37.4 kg/m2 11/26/2017 Weight 240.19 lb Heart Rate 79 /min BP Systolic 157 mmHg 152/108 BP Diastolic 105 mmHg 152/108 Height 67 inches 5'7" BMI (Body Mass Index) 37.6 kg/m2 09/22/2017 Body Temperature 99.1 F Weight 240.00 lb Heart Rate 91 /min BP Systolic 163 mmHg BP Diastolic 97 mmHg Height 67 inches 5'7" BMI (Body Mass Index) 37.6 kg/m2 07/24/2017 Weight 239.25 lb Heart Rate 85 /min BP Systolic 168 mmHg BP Diastolic 96 mmHg Height 67 inches 5'7" BMI (Body Mass Index) 37.5 kg/m2 05/23/2017 Body Temperature 97.7 F Weight 229.38 lb Heart Rate 60 /min BP Systolic 172 mmHg BP Diastolic 94 mmHg Height 67 inches 5'7" BMI (Body Mass Index) 35.9 kg/m2 04/23/2017 Weight 234.12 lb Heart Rate 72 /min BP Systolic 135 mmHg BP Diastolic 93 mmHg Height 67 inches 5'7" BMI (Body Mass Index) 36.7 kg/m2 03/03/2017 Body Temperature 97.4 F Weight 242.25 lb Heart Rate 66 /min BP Systolic 161 mmHg BP Diastolic 93 mmHg Height 67 inches 5'7" O2 % BldC Oximetry 96 % BMI (Body Mass Index) 37.9 kg/m2 01/02/2017 Body Temperature 97.9 F Weight 233.12 lb Heart Rate 65 /min BP Systolic 168 mmHg BP Diastolic 93 mmHg Height 67 inches 5'7" O2 % BldC Oximetry 95 % BMI (Body Mass Index) 36.5 kg/m2 11/08/2016 Weight 243.00 lb Heart Rate 70 /min BP Systolic 179 mmHg BP Diastolic 99 mmHg Height 67 inches 5'7" BMI (Body Mass Index) 38.1 kg/m2 10/15/2016 Body Temperature 97.5 F Weight 239.38 lb Heart Rate 90 /min BP Systolic 145 mmHg BP Diastolic 92 mmHg Height 67 inches 5'7" O2 % BldC Oximetry 96 % BMI (Body Mass Index) 37.5 kg/m2 09/11/2016 Body Temperature 97.0 F Weight 235.12 lb Heart Rate 65 /min BP Systolic 141 mmHg BP Diastolic 85 mmHg Height 67 inches 5'7" BMI (Body Mass Index) 36.8 kg/m2 08/28/2016 Weight 238.12 lb Heart Rate 64 /min BP Systolic 135 mmHg BP Diastolic 80 mmHg Height 67 inches 5'7" BMI (Body Mass Index) 37.3 kg/m2 Urine Dipstick - Blood NEGATIVE Urine Dipstick - Protein TRACE Urine Dipstick - Glucose NEGATIVE Urine Dipstick - Leukocytes NEGATIVE 08/23/2016 Body Temperature 97.7 F Weight 239.25 lb Heart Rate 67 /min BP Systolic 170 mmHg BP Diastolic 102 mmHg Height 67 inches 5'7" O2 % BldC Oximetry 93 % O2 Saturation Level with Exercise 91 % BMI (Body Mass Index) 37.5 kg/m2 08/08/2016 Body Temperature 99.1 F Weight 233.12 lb Heart Rate 65 /min BP Systolic 127 mmHg BP Diastolic 87 mmHg Height 67 inches 5'7" BMI (Body Mass Index) 36.5 kg/m2 05/15/2016 Weight 233.00 lb Heart Rate 63 /min BP Systolic 147 mmHg BP Diastolic 82 mmHg Height 67 inches 5'7" BMI (Body Mass Index) 36.5 kg/m2 03/07/2016 Weight 252.50 lb Heart Rate 71 /min BP Systolic 126 mmHg BP Diastolic 69 mmHg Height 67 inches 5'7" BMI (Body Mass Index) 39.5 kg/m2 11/23/2015 Weight 242.12 lb Heart Rate 70 /min BP Systolic 146 mmHg BP Diastolic 83 mmHg Height 67 inches 5'7" BMI (Body Mass Index) 37.9 kg/m2 10/13/2015 Weight 249.19 lb Heart Rate 81 /min BP Systolic 131 mmHg BP Diastolic 81 mmHg Height 67 inches 5'7" BMI (Body Mass Index) 39.0 kg/m2 10/09/2015 Weight 251.25 lb Heart Rate 61 /min BP Systolic 120 mmHg BP Diastolic 71 mmHg Height 67 inches 5'7" BMI (Body Mass Index) 39.3 kg/m2 09/07/2015 Weight 255.12 lb Heart Rate 57 /min BP Systolic 145 mmHg BP Diastolic 92 mmHg Height 67 inches 5'7" BMI (Body Mass Index) 40.0 kg/m2 08/24/2015 Weight 251.00 lb Heart Rate 55 /min BP Systolic 146 mmHg BP Diastolic 88 mmHg Height 67 inches 5'7" BMI (Body Mass Index) 39.3 kg/m2 06/23/2015 Weight 261.00 lb Heart Rate 60 /min BP Systolic 204 mmHg BP Diastolic 114 mmHg BP Systolic Recheck 209 mmHg BP Diastolic Recheck 93 mmHg 05/23/2015 Weight 254.00 lb Heart Rate 76 /min BP Systolic 150 mmHg BP Diastolic 92 mmHg Height 67 inches 5'7" BMI (Body Mass Index) 39.8 kg/m2 02/15/2015 Weight 266.00 lb Heart Rate 74 /min BP Systolic 152 mmHg BP Diastolic 80 mmHg Height 67 inches 5'7" BMI (Body Mass Index) 41.7 kg/m2 06/01/2014 Weight 257.50 lb Heart Rate 56 /min BP Systolic 151 mmHg BP Diastolic 86 mmHg 10/14/2013 Weight 271.00 lb Heart Rate 73 /min BP Systolic 153 mmHg BP Diastolic 80 mmHg Height 64.5 inches 5'4.50" BMI (Body Mass Index) 45.8 kg/m2 09/28/2013 Body Temperature 98.2 F Weight 277.00 lb Heart Rate 80 /min BP Systolic 151 mmHg BP Diastolic 81 mmHg 02/10/2013 Heart Rate 77 /min BP Systolic 137 mmHg BP Diastolic 90 mmHg 01/20/2013 Weight 267.00 lb Heart Rate 78 /min BP Systolic 149 mmHg BP Diastolic 91 mmHg 01/14/2013 Weight 268.00 lb Heart Rate 75 /min BP Systolic 137 mmHg BP Diastolic 89 mmHg 12/22/2012 Weight 269.12 lb Heart Rate 87 /min BP Systolic 156 mmHg BP Diastolic 90 mmHg 2012 Body Temperature 99.2 F Weight 264.00 lb Heart Rate 68 /min BP Systolic 120 mmHg BP Diastolic 50 mmHg 10/15/2012 Weight 267.00 lb Heart Rate 75 /min BP Systolic 138 mmHg BP Diastolic 73 mmHg 04/16/2012 Weight 259.00 lb Heart Rate 70 /min BP Systolic 138 mmHg BP Diastolic 90 mmHg 03/03/2012 Weight 267.00 lb Heart Rate 89 /min BP Systolic 149 mmHg BP Diastolic 88 mmHg 01/14/2012 Weight 269.00 lb Heart Rate 91 /min BP Systolic 128 mmHg BP Diastolic 50 mmHg 09/30/2011 Body Temperature 100.3 F Weight 266.00 lb Heart Rate 80 /min BP Systolic 120 mmHg BP Diastolic 80 mmHg 09/06/2011 Weight 264.00 lb Heart Rate 80 /min BP Systolic 140 mmHg BP Diastolic 84 mmHg 12/20/2010 Weight 256.00 lb Heart Rate 78 /min BP Systolic 130 mmHg BP Diastolic 79 mmHg 10/24/2010 Body Temperature 98.4 F Weight 261.00 lb Heart Rate 75 /min BP Systolic 125 mmHg BP Diastolic 83 mmHg Height 64.5 inches 5'4.50" BMI (Body Mass Index) 44.1 kg/m2 2009 Body Temperature 99.1 F Weight 251.00 lb Heart Rate 76 /min BP Systolic 114 mmHg BP Diastolic 64 mmHg 11/16/2009 Weight 256.00 lb Heart Rate 88 /min BP Systolic 120 mmHg BP Diastolic 75 mmHg Height 64.5 inches 5'4.50" BMI (Body Mass Index) 43.3 kg/m2 08/09/2009 Body Temperature 98.1 F Weight 254.00 lb Heart Rate 84 /min BP Systolic 127 mmHg BP Diastolic 74 mmHg 05/26/2009 Weight 248.00 lb Heart Rate 76 /min BP Systolic 134 mmHg BP Diastolic 89 mmHg 02/21/2009 Weight 248.00 lb Heart Rate 88 /min BP Systolic 159 mmHg BP Diastolic 88 mmHg 11/07/2008 Body Temperature 98.0 F Weight 248.00 lb Heart Rate 69 /min BP Systolic 160 mmHg BP Diastolic 90 mmHg 10/31/2008 Body Temperature 97.8 F Weight 249.00 lb Heart Rate 75 /min BP Systolic 149 mmHg BP Diastolic 93 mmHg 10/06/2008 Body Temperature 98.7 F Weight 245.00 lb Heart Rate 107 /min BP Systolic 187 mmHg BP Diastolic 111 mmHg Respiratory Rate 24 /min 02/24/2008 Weight 253.00 lb Heart Rate 76 /min BP Systolic 126 mmHg BP Diastolic 88 mmHg 09/08/2007 Body Temperature 98.5 F Weight 247.00 lb Heart Rate 67 /min BP Systolic 158 mmHg BP Diastolic 100 mmHg 03/25/2007 Weight 256.00 lb Heart Rate 80 /min BP Systolic 122 mmHg BP Diastolic 70 mmHg 02/09/2007 Body Temperature 98.9 F Weight 264.00 lb BP Systolic 132 mmHg BP Diastolic 84 mmHg 02/04/2007 Weight 263.00 lb Heart Rate 80 /min BP Systolic 140 mmHg BP Diastolic 70 mmHg 01/23/2007 Body Temperature 97.4 F Weight 262.00 lb Heart Rate 64 /min BP Systolic 130 mmHg BP Diastolic 80 mmHg 10/07/2006 Body Temperature 97.6 F Weight 257.00 lb Heart Rate 80 /min BP Systolic 144 mmHg BP Diastolic 98 mmHg 07/29/2006 Weight 259.00 lb Heart Rate 90 /min BP Systolic 170 mmHg BP Diastolic 110 mmHg 04/28/2006 Body Temperature 98.8 F Weight 245.00 lb Heart Rate 82 /min BP Systolic 140 mmHg BP Diastolic 84 mmHg 02/18/2006 Weight 246.00 lb Heart Rate 80 /min BP Systolic 134 mmHg BP Diastolic 88 mmHg 02/12/2006 Body Temperature 97.8 F Weight 249.00 lb Heart Rate 90 /min BP Systolic 132 mmHg BP Diastolic 82 mmHg 03/20/2005 Weight 239.00 lb Heart Rate 70 /min BP Systolic 128 mmHg BP Diastolic 72 mmHg 01/09/2005 Body Temperature 98.0 F Weight 232.00 lb Heart Rate 61 /min BP Systolic 122 mmHg BP Diastolic 75 mmHg 12/12/2004 Weight 236.00 lb Heart Rate 68 /min BP Systolic 142 mmHg BP Diastolic 90 mmHg Results Test Date Test Result H/L Range Note Laboratory test finding 12/01/2017 1 Rapid Flu Test (In NEG A AND B House) 1 Strep Screen (In-House) NEG Negative Lipid Treatment 11/26/2017 Cholesterol 193 mg/dL 50-199 Triglycerides 188 mg/dL 30-200 HDL 36 mg/dL 35-85 1 Chol/ HDL Ratio 5.4 ratio 3.7-5.6 VLDL 38 mg/dL High 2-29 LDL (Calc) 120 mg/dL High 20-99 2 Alt 10 U/L 3-42 Ast 24 U/L 8-42 PTH,Intact W/ CA -RL 04/23/2017 PTH, Intact @ 164.0 pg/mL High (12-65) Calcium @ 9.3 mg/dL (8.4-10.2) 3 Laboratory test finding 04/23/2017 Magnesium 1.6 mg/dL 1.5-2.7 Comprehensive Metabolic (CMP) 04/23/2017 Sodium 141 mmol/L 135-146 4 Potassium 4.8 mmol/L 3.5-5.2 Chloride# 110 mmol/L 97-110 5 Carbon Dioxide 21 Electrolytes <SEE NOTE> mmol/L Low 24-34 6 Glucose 80 mg/dL 70-105 BUN 29 mg/dL High 6-26 Creatinine 3.5 mg/dL High 0.5-1.4 Calcium 9.3 mg/dL 8.5-10.2 Total Protein 6.6 g/dL 6.0-8.0 Albumin 4.2 g/dL 3.6-4.9 Globulin 2.4 g/dL 2.0-3.5 A/G Ratio 1.8 Ratio 1.0-2.2 Total Bilirubin 0.6 mg/dL 0.1-1.3 Alkaline Phosphatase 45 U/L 24-140 Alt 10 U/L 3-42 Ast 12 U/L 8-42 Natalee Egfr 17 Low >60 7 Non Natalee Egfr 14 Low >60 8 Anion Gap 15 mmol/L 7-16 9 Laboratory test finding 04/23/2017 Vit D,25 Hydroxy 38 ng/mL 31-100 TSH 1.78 uIU/mL 0.35-4.94 Laboratory test finding 03/03/2017 Vit D,25 Hydroxy 42 ng/mL 31-100 PTH,Intact W/ CA -RL 11/08/2016 PTH, Intact @ 140.0 pg/mL High (12-65) Calcium @ 9.2 mg/dL (8.4-10.2) 10 Comprehensive Metabolic (CMP) 11/08/2016 Sodium 137 mmol/L 134-142 Potassium 5.5 No visible h <SEE NOTE> mmol/L High 3.5-5.2 11 Chloride 107 mmol/L 97-109 Carbon Dioxide 25 mmol/L 24-34 Glucose 93 mg/dL 70-105 BUN 27 mg/dL High 6-26 Creatinine 2.5 mg/dL High 0.5-1.4 Calcium 9.3 mg/dL 8.5-10.2 Total Protein 6.6 g/dL 6.0-8.0 Albumin 4.2 g/dL 3.6-4.9 Globulin 2.4 g/dL 2.0-3.5 A/G Ratio 1.8 Ratio 1.0-2.2 Total Bilirubin 0.5 mg/dL 0.1-1.3 Alkaline Phosphatase 40 U/L 24-140 Alt 9 U/L 3-42 Ast 12 U/L 8-42 Anion Gap 11 mmol/L 6-14 Natalee Egfr 25 Low >60 12 Non Natalee Egfr 21 Low >60 13 Laboratory test finding 11/08/2016 CCP Antibody Igg 1.10 0.00-7.00 CRP (C-Reactive) 0.17 mg/dL 0.00-0.75 Paty Screen With Reflex-FCMG 11/08/2016 Paty Screen NEGATIVE dsDNA IgG NEGATIVE Laboratory test finding 11/08/2016 Esr 1 mm/hr 0-20 Iron Panel 11/08/2016 Iron, Total 98 g/dL 50-170 Transferrin 258.1 mg/dL 203.0-362.0 Tibc (calc) 361 g/dL 261-478 % Iron Saturation 27.1 % 13.0-45.0 Lipid 11/08/2016 Cholesterol 235 mg/dL High 50-199 Triglycerides 220 mg/dL High 30-200 HDL 32 mg/dL Low 35-85 14 Chol/ HDL Ratio 7.3 ratio High 3.7-5.6 VLDL 44 mg/dL High 2-29 LDL (Calc) 159 mg/dL High 20-99 15 CBC With Auto Diff 11/08/2016 WBC 8.0 K/uL 4.1-11.0 RBC 5.38 M/uL 4.00-5.40 Hemoglobin 16.4 gm/dL High 12.0-16.0 Hematocrit 50.1 % High 36.0-47.0 MCV 93.2 fL 80.0-97.0 MCH 30.5 pg 27.0-32.0 MCHC 32.7 g/dL 32.0-36.0 RDW 14.4 % 11.5-14.5 PLT Count 166 K/ul 140-400 Neutrophil 56.2 % 35.0-75.0 Lymphocyte 24.5 % 16.0-52.0 Monocyte 8.0 % 2.0-10.0 Eosinophil 10.3 % High 0.0-5.0 Basophil 1.0 % 0.0-4.0 Abs Neutrophils 4.5 K/uL 2.1-8.0 Abs Lymphocytes 2.0 K/uL 0.8-5.5 Abs Monocytes 0.6 K/uL 0.1-1.0 Abs Eosinophils 0.8 K/uL High 0.0-0.5 Abs Basophils 0.1 K/uL 0.0-0.3 Laboratory test finding 11/08/2016 Vit D,25 Hydroxy 25 ng/mL Low 31-100 Lipid 05/15/2016 Cholesterol 188 mg/dL 50-199 Triglycerides 233 mg/dL High 30-200 HDL 26 mg/dL Low 35-85 16 Chol/ HDL Ratio 7.2 ratio High 3.7-5.6 VLDL 47 mg/dL High 2-29 LDL (Calc) 115 mg/dL High 20-99 17 Comprehensive Metabolic (CMP) 05/15/2016 Sodium 139 mmol/L 134-142 Potassium 5.1 mmol/L 3.5-5.2 Chloride 109 mmol/L 97-109 Carbon Dioxide 22 mmol/L Low 24-34 Glucose 86 mg/dL 70-105 BUN 30 mg/dL High 6-26 Creatinine 3.0 mg/dL High 0.5-1.4 Calcium 9.8 mg/dL 8.5-10.2 Total Protein 7.1 g/dL 6.0-8.0 Albumin 4.5 g/dL 3.6-4.9 Globulin 2.6 g/dL 2.0-3.5 A/G Ratio 1.7 Ratio 1.0-2.2 Total Bilirubin 0.6 mg/dL 0.1-1.3 Alkaline Phosphatase 47 U/L 24-140 Alt 10 U/L 3-42 Ast 14 U/L 8-42 Anion Gap 13 mmol/L 6-14 Natalee Egfr 21 Low >60 18 Non Natalee Egfr 17 Low >60 19 Laboratory test finding 05/15/2016 LH 6.8 mIU/ml 20 TSH 2.67 uIU/mL 0.35-4.94 Phosphorus 3.0 mg/dL 2.5-5.0 PTH,Intact W/ CA -RL 05/15/2016 PTH, Intact @ 78.5 pg/mL High (12-65) Calcium @ 9.5 mg/dL (8.4-10.2) 21 Laboratory test finding 05/15/2016 FSH 6.9 mIU/ml 22 CBC With Auto Diff 05/15/2016 WBC 8.5 K/uL 4.1-11.0 RBC 5.25 M/uL 4.00-5.40 Hemoglobin 16.4 gm/dL High 12.0-16.0 Hematocrit 48.1 % High 36.0-47.0 MCV 91.7 fL 80.0-97.0 MCH 31.2 pg 27.0-32.0 MCHC 34.0 g/dL 32.0-36.0 RDW 13.8 % 11.5-14.5 PLT Count 132 K/ul Low 140-400 Neutrophil 68.8 % 35.0-75.0 Lymphocyte 19.7 % 16.0-52.0 Monocyte 8.7 % 2.0-10.0 Eosinophil 2.2 % 0.0-5.0 Basophil 0.6 % 0.0-4.0 Abs Neutrophils 5.8 K/uL 2.1-8.0 Abs Lymphocytes 1.7 K/uL 0.8-5.5 Abs Monocytes 0.7 K/uL 0.1-1.0 Abs Eosinophils 0.2 K/uL 0.0-0.5 Abs Basophils 0.1 K/uL 0.0-0.3 Comprehensive Metabolic (CMP) 12/27/2015 Sodium 137 mmol/L 134-142 Potassium 5.5 No visible h <SEE NOTE> mmol/L High 3.5-5.2 23 Chloride 107 mmol/L 97-109 Carbon Dioxide 28 mmol/L 24-34 Glucose 99 mg/dL 70-105 BUN 22 mg/dL 6-26 Creatinine 2.8 Consistent w <SEE NOTE> mg/dL High 0.5-1.4 24 Calcium 8.9 mg/dL 8.5-10.2 Total Protein 6.2 g/dL 6.0-8.0 Albumin 3.9 g/dL 3.6-4.9 Globulin 2.3 g/dL 2.0-3.5 A/G Ratio 1.7 Ratio 1.0-2.2 Total Bilirubin 0.4 mg/dL 0.1-1.3 Alkaline Phosphatase 36 U/L 24-140 Alt 7 U/L 3-42 Ast 10 U/L 8-42 Anion Gap 8 mmol/L 6-14 Natalee Egfr 23 Low >60 25 Non Natalee Egfr 19 Low >60 26 CBC With Auto Diff 12/27/2015 WBC 6.4 K/uL 4.1-11.0 RBC 4.31 M/uL 4.00-5.40 Hemoglobin 11.9 gm/dL Low 12.0-16.0 Hematocrit 37.2 % 36.0-47.0 MCV 86.4 fL 80.0-97.0 MCH 27.6 pg 27.0-32.0 MCHC 32.0 g/dL 32.0-36.0 RDW 17.2 % High 11.5-14.5 PLT Count 133 K/ul Low 140-400 Neutrophil 65.5 % 35.0-75.0 Lymphocyte 22.0 % 16.0-52.0 Monocyte 9.5 % 2.0-10.0 Eosinophil 2.1 % 0.0-5.0 Basophil 0.9 % 0.0-4.0 Abs Neutrophils 4.2 K/uL 2.1-8.0 Abs Lymphocytes 1.4 K/uL 0.8-5.5 Abmon 0.6 K/uL 0.1-1.0 Abs Eosinophils 0.1 K/uL 0.0-0.5 Abs Basophils 0.1 K/uL 0.0-0.3 Iron Panel 12/27/2015 Iron, Total 40 g/dL Low 50-170 Transferrin 272.2 mg/dL 203.0-362.0 Tibc (calc) 381 g/dL 261-478 % Iron Saturation 10.5 % Low 13.0-45.0 Comprehensive Metabolic (CMP) 11/23/2015 Sodium 138 mmol/L 134-142 Potassium 5.1 mmol/L 3.5-5.2 Chloride 108 mmol/L 97-109 Carbon Dioxide 24 mmol/L 24-34 Glucose 94 mg/dL 70-105 BUN 26 mg/dL 6-26 Creatinine 2.9 mg/dL High 0.5-1.4 Calcium 9.4 mg/dL 8.5-10.2 Total Protein 6.6 g/dL 6.0-8.0 Albumin 4.0 g/dL 3.6-4.9 Globulin 2.6 g/dL 2.0-3.5 A/G Ratio 1.5 Ratio 1.0-2.2 Total Bilirubin 0.3 mg/dL 0.1-1.3 Alkaline Phosphatase 40 U/L 24-140 Alt 6 U/L 3-42 Ast 10 U/L 8-42 Anion Gap 11 mmol/L 6-14 Natalee Egfr 22 Low >60 27 Non Natalee Egfr 18 Low >60 28 Iron Panel 11/23/2015 Iron, Total 23 g/dL Low 50-170 Transferrin 276.9 mg/dL 203.0-362.0 Tibc (calc) 388 g/dL 261-478 % Iron Saturation 5.9 % Low 13.0-45.0 Laboratory test finding 11/23/2015 Ferritin 6.8 ng/ml Low 11.0-306.0 Vitamin B12 198 pg/mL 180-914 CBC With Auto Diff 11/23/2015 WBC 6.8 K/uL 4.1-11.0 RBC 4.44 M/uL 4.00-5.40 Hemoglobin 12.2 gm/dL 12.0-16.0 Hematocrit 37.8 % 36.0-47.0 MCV 85.2 fL 80.0-97.0 MCH 27.4 pg 27.0-32.0 MCHC 32.2 g/dL 32.0-36.0 RDW 15.6 % High 11.5-14.5 PLT Count 158 K/ul 140-400 Neutrophil 67.3 % 35.0-75.0 Lymphocyte 20.3 % 16.0-52.0 Monocyte 9.7 % 2.0-10.0 Eosinophil 2.0 % 0.0-5.0 Basophil 0.7 % 0.0-4.0 Abs Neutrophils 4.6 K/uL 2.1-8.0 Abs Lymphocytes 1.4 K/uL 0.8-5.5 Abmon 0.7 K/uL 0.1-1.0 Abs Eosinophils 0.1 K/uL 0.0-0.5 Abs Basophils 0.0 K/uL 0.0-0.3 Laboratory test 10/13/2015 Urine Culture Microbiology res <SEE 29 finding NOTE> CBC With Auto Diff 05/23/2015 WBC 6.9 K/uL 4.1-11.0 30 RBC 4.34 M/uL 4.00-5.40 30 Hemoglobin 12.9 gm/dL 12.0-16.0 30 Hematocrit 37.9 % 36.0-47.0 30 MCV 87.3 fL 80.0-97.0 30 MCH 29.7 pg 27.0-32.0 30 MCHC 34.0 g/dL 32.0-36.0 30 RDW 15.9 % High 11.5-14.5 30 PLT Count 153 K/ul 140-400 30 Neutrophil 67.6 % 35.0-75.0 30 Lymphocyte 22.3 % 16.0-52.0 30 Monocyte 6.8 % 2.0-10.0 30 Eosinophil 2.4 % 0.0-5.0 30 Basophil 0.9 % 0.0-4.0 30 Abs Neutrophils 4.6 K/uL 2.1-8.0 30 Abs Lymphocytes 1.5 K/uL 0.8-5.5 30 Abmon 0.5 K/uL 0.1-1.0 30 Abs Eosinophils 0.2 K/uL 0.0-0.5 30 Abs Basophils 0.1 K/uL 0.0-0.3 30 Comprehensive Metabolic (CMP) 05/23/2015 Sodium 139 mmol/L 134-142 30 Potassium 4.7 mmol/L 3.5-5.2 30 Chloride 107 mmol/L 97-109 30 Carbon Dioxide 28 mmol/L 24-34 30 Glucose 97 mg/dL 70-105 30 BUN 33 mg/dL High 6-26 30 Creatinine 3.1 mg/dL High 0.5-1.4 30 Calcium 9.6 mg/dL 8.5-10.2 30 Total Protein 6.5 g/dL 6.0-8.0 30 Albumin 4.2 g/dL 3.6-4.9 30 Globulin 2.3 g/dL 2.0-3.5 30 A/G Ratio 1.8 Ratio 1.0-2.2 30 Total Bilirubin 0.4 mg/dL 0.1-1.3 30 Alkaline Phosphatase 36 U/L 24-140 30 Alt 9 U/L 3-42 30 Ast 12 U/L 8-42 30 Anion Gap 9 mmol/L 6-14 30 Natalee Egfr 20 Low >60 30, 31 Non Natalee Egfr 17 Low >60 30, 32 Lipid 05/23/2015 Cholesterol 172 mg/dL 50-199 30 Triglycerides 341 mg/dL High 30-200 30 HDL 26 mg/dL Low 35-85 30, 33 Chol/ HDL Ratio 6.6 ratio High 3.7-5.6 30 VLDL 68 mg/dL High 2-29 30 LDL (Calc) 78 mg/dL 20-99 30, 34 Laboratory test finding 05/23/2015 Vitamin B12 273 pg/mL 180-914 30 Iron Panel 05/23/2015 Iron, Total 41 g/dL Low 50-170 30 Transferrin 298.5 mg/dL 203.0-362.0 30 Tibc (calc) 418 g/dL 261-478 30 % Iron Saturation 9.8 % Low 13.0-45.0 30 Laboratory test finding 05/23/2015 Ferritin 7.9 ng/ml Low 11.0-306.0 30 Lipid Treatment 02/15/2015 Cholesterol 214 mg/dL High 50-199 35 Triglycerides 244 mg/dL High 30-200 35 HDL 32 mg/dL Low 35-85 35, 36 Chol/ HDL Ratio 6.7 ratio High 3.7-5.6 35 VLDL 49 mg/dL High 2-29 35 LDL (Calc) 133 mg/dL High 20-99 35, 37 Alt 7 U/L 3-42 35 Ast 12 U/L 8-42 35 Laboratory test finding 02/15/2015 Ferritin 5.6 ng/ml Low 11.0-306.0 35 Vitamin B12 121 pg/mL Low 180-914 35 Lipid 10/14/2013 Cholesterol 217 mg/dL High 50-199 38 Triglycerides 271 mg/dL High 30-200 38 HDL 31 mg/dL Low 35-85 38, 39 Chol/ HDL Ratio 7.0 ratio High 3.7-5.6 38 VLDL 54 mg/dL High 2-29 38 LDL (Calc) 132 mg/dL High 20-99 38, 40 Iron Panel 10/14/2013 Iron, Total 50 g/dL 50-170 38 Transferrin 333.9 mg/dL 203.0-362.0 38 Tibc (calc) 467 g/dL 261-478 38 % Iron Saturation 10.7 % Low 13.0-45.0 38 Renal Panel 09/07/2013 Sodium 137 mmol/L 134-142 41 Potassium 4.9 mmol/L 3.5-5.2 41 Chloride 106 mmol/L 97-109 41 Carbon Dioxide 26 mmol/L 24-34 41 Glucose 101 mg/dL 70-105 41 BUN 24 mg/dL 6-26 41 Creatinine 2.3 mg/dL High 0.5-1.4 41 BUN/CR 11 ratio Low 12-20 41 Anion Gap 10 mmol/L 6-14 41 Calcium 9.1 mg/dL 8.5-10.2 41 Phosphorus 2.9 mg/dL 2.5-5.0 41 Albumin 4.1 g/dL 3.6-4.9 41 Non Natalee Egfr 24 Low >60 41, 42 Natalee Egfr 29 Low >60 41, 43 CBC With Auto Diff 09/07/2013 WBC 6.7 K/uL 4.1-11.0 41 RBC 4.05 M/uL 4.00-5.40 41 Hemoglobin 11.4 gm/dL Low 12.0-16.0 41 Hematocrit 33.6 % Low 36.0-47.0 41 MCV 83.1 fL 80.0-97.0 41 MCH 28.2 pg 27.0-32.0 41 MCHC 33.9 g/dL 32.0-36.0 41 RDW 15.5 % High 11.5-14.5 41 PLT Count 142 K/ul 140-400 41 Neutrophil 60.8 % 35.0-75.0 41 Lymphocyte 25.0 % 16.0-52.0 41 Monocyte 9.9 % 2.0-10.0 41 Eosinophil 3.2 % 0.0-5.0 41 Basophil 1.1 % 0.0-4.0 41 Abs Neutrophils 4.0 K/uL 2.1-8.0 41 Abs Lymphocytes 1.7 K/uL 0.8-5.5 41 Abmon 0.7 K/uL 0.1-1.0 41 Abs Eosinophils 0.2 K/uL 0.0-0.5 41 Abs Basophils 0.1 K/uL 0.0-0.3 41 Laboratory test finding 09/07/2013 Vit D,25 Hydroxy 28 ng/mL Low 31-100 41 PTH,Intact W/ CA -RL 09/07/2013 PTH, Intact @ 80.9 pg/mL High (12-65) 41 Calcium @ 8.9 mg/dL (8.4-10.2) 41, 44 Laboratory test finding 02/10/2013 TSH 3.59 uIU/mL 0.34-5.60 45 Lipid Treatment 02/10/2013 Cholesterol 161 mg/dL 50-199 45 Triglycerides 260 mg/dL High 30-200 45 HDL 30 mg/dL Low 35-85 45, 46 Chol/ HDL Ratio 5.4 ratio 3.7-5.6 45 VLDL 52 mg/dL High 2-29 45 LDL (Calc) 79 mg/dL 20-129 45, 47 Alt 12 U/L 3-42 45 Ast 16 U/L 8-42 45 Comprehensive Metabolic (CMP) 02/10/2013 Sodium 137 mmol/L 134-142 45 Potassium 4.4 mmol/L 3.5-5.2 45 Chloride 107 mmol/L 97-109 45 Carbon Dioxide 25 mmol/L 24-34 45 Glucose 104 mg/dL 70-105 45 BUN 18 mg/dL 6-26 45 Creatinine 2.0 mg/dL High 0.5-1.4 45 Calcium 9.0 mg/dL 8.5-10.2 45 Total Protein 7.2 g/dL 6.0-8.0 45 Albumin 4.5 g/dL 3.6-4.9 45 Globulin 2.7 g/dL 2.0-3.5 45 A/G Ratio 1.7 Ratio 1.0-2.2 45 Total Bilirubin 0.5 mg/dL 0.1-1.3 45 Alkaline Phosphatase 39 U/L 24-140 45 Alt 12 U/L 3-42 45 Ast 16 U/L 8-42 45 Anion Gap 9 mmol/L 6-14 45 Natalee Egfr 34 Low >60 45, 48 Non Natalee Egfr 28 Low >60 45, 49 CBC With Auto Diff 02/10/2013 WBC 5.2 K/uL 4.1-11.0 45 RBC 4.39 M/uL 4.00-5.40 45 Hemoglobin 12.5 gm/dL 12.0-16.0 45 Hematocrit 36.7 % 36.0-47.0 45 MCV 83.6 fL 80.0-97.0 45 MCH 28.5 pg 27.0-32.0 45 MCHC 34.1 g/dL 32.0-36.0 45 RDW 15.9 % High 11.5-14.5 45 PLT Count 141 K/ul 140-400 45 Neutrophil 64.4 % 35.0-75.0 45 Lymphocyte 23.0 % 16.0-52.0 45 Monocyte 9.5 % 2.0-10.0 45 Eosinophil 2.5 % 0.0-5.0 45 Basophil 0.6 % 0.0-4.0 45 Abs Neutrophils 3.4 K/uL 2.1-8.0 45 Abs Lymphocytes 1.2 K/uL 0.8-5.5 45 Abs Monocytes 0.5 K/uL 0.1-1.0 45 Abs Eosinophils 0.1 K/uL 0.0-0.5 45 Abs Basophils 0.0 K/uL 0.0-0.3 45 Laboratory test finding 10/20/2012 Vit D,25 Hydroxy 30 ng/mL Low 31-100 50 CBC With Auto Diff 10/20/2012 WBC 6.2 K/uL 4.1-11.0 50 RBC 4.16 M/uL 4.00-5.40 50 Hemoglobin 11.7 gm/dL Low 12.0-16.0 50 Hematocrit 34.9 % Low 36.0-47.0 50 MCV 84.0 fL 80.0-97.0 50 MCH 28.1 pg 27.0-32.0 50 MCHC 33.4 g/dL 32.0-36.0 50 RDW 15.1 % High 11.5-14.5 50 PLT Count 148 K/ul 140-400 50 Neutrophil 59.4 % 35.0-75.0 50 Lymphocyte 27.6 % 16.0-52.0 50 Monocyte 9.7 % 2.0-10.0 50 Eosinophil 2.7 % 0.0-5.0 50 Basophil 0.6 % 0.0-4.0 50 Abs Neutrophils 3.7 K/uL 2.1-8.0 50 Abs Lymphocytes 1.7 K/uL 0.8-5.5 50 Abs Monocytes 0.6 K/uL 0.1-1.0 50 Abs Eosinophils 0.2 K/uL 0.0-0.5 50 Abs Basophils 0.0 K/uL 0.0-0.3 50 Comprehensive Metabolic (CMP) 10/20/2012 Sodium 139 mmol/L 134-142 50 Potassium 5.2 mmol/L 3.5-5.2 50 Chloride 103 mmol/L 97-109 50 Carbon Dioxide 29 mmol/L 24-34 50 Glucose 101 mg/dL 70-105 50 BUN 30 mg/dL High 6-26 50 Creatinine 2.2 mg/dL High 0.5-1.4 50 Calcium 9.6 mg/dL 8.5-10.2 50 Total Protein 6.5 g/dL 6.0-8.0 50 Albumin 4.3 g/dL 3.6-4.9 50 Globulin 2.2 g/dL 2.0-3.5 50 A/G Ratio 2.0 Ratio 1.0-2.2 50 Total Bilirubin 0.4 mg/dL 0.1-1.3 50 Alkaline Phosphatase 35 U/L 24-140 50 Alt 10 U/L 3-42 50 Ast 12 U/L 8-42 50 Anion Gap 12 mmol/L 6-14 50 Natalee Egfr 31 Low >60 50, 51 Non Natalee Egfr 26 Low >60 50, 52 Laboratory test finding 10/20/2012 Hemoglobin A1c 5.9 % 4.1-5.9 50 Lipid 10/20/2012 Cholesterol 197 mg/dL 50-199 50 Triglycerides 311 mg/dL High 30-200 50 HDL 26 mg/dL Low 35-85 50, 53 Chol/ HDL Ratio 7.6 ratio High 3.7-5.6 50 VLDL 62 mg/dL High 2-29 50 LDL (Calc) 109 mg/dL 20-129 50, 54 Non HDL Cholesterol 171 mg/dL High 20-129 50 Lipid 05/05/2012 Cholesterol 188 mg/dL 50-199 55 Triglycerides 252 mg/dL High 30-200 55 HDL 24 mg/dL Low 35-85 55, 56 Chol/ HDL Ratio 7.8 ratio High 3.7-5.6 55 VLDL 50 mg/dL High 2-29 55 LDL (Calc) 114 mg/dL 20-129 55, 57 Comprehensive Metabolic (CMP) 05/05/2012 Sodium 141 mmol/L 134-142 55 Potassium 4.3 mmol/L 3.5-5.2 55 Chloride 107 mmol/L 97-109 55 Carbon Dioxide 25 mmol/L 24-34 55 Glucose 107 mg/dL High 70-105 55 BUN 22 mg/dL 6-26 55 Creatinine 1.9 mg/dL High 0.5-1.4 55 Calcium 9.1 mg/dL 8.5-10.2 55 Total Protein 6.5 g/dL 6.0-8.0 55 Albumin 4.2 g/dL 3.6-4.9 55 Globulin 2.3 g/dL 2.0-3.5 55 A/G Ratio 1.8 Ratio 1.0-2.2 55 Total Bilirubin 0.4 mg/dL 0.1-1.3 55 Alkaline Phosphatase 36 U/L 24-140 55 Alt 8 U/L 3-42 55 Ast 11 U/L 8-42 55 Anion Gap 13 mmol/L 6-14 55 Natalee Egfr 36 Low >60 55, 58 Non Natalee Egfr 29 Low >60 55, 59 CBC With Auto Diff 05/05/2012 WBC 7.6 K/uL 4.1-11.0 55 RBC 4.02 M/uL 4.00-5.40 55 Hemoglobin 11.7 gm/dL Low 12.0-16.0 55 Hematocrit 34.0 % Low 36.0-47.0 55 MCV 84.6 fL 80.0-97.0 55 MCH 29.2 pg 27.0-32.0 55 MCHC 34.5 g/dL 32.0-36.0 55 RDW 15.8 % High 11.5-14.5 55 PLT Count 156 K/ul 140-400 55 Neutrophil 64.7 % 35.0-75.0 55 Lymphocyte 24.3 % 16.0-52.0 55 Monocyte 7.5 % 2.0-10.0 55 Eosinophil 2.8 % 0.0-5.0 55 Basophil 0.7 % 0.0-4.0 55 Abs Neutrophils 4.9 K/uL 2.1-8.0 55 Abs Lymphocytes 1.9 K/uL 0.8-5.5 55 Abs Monocytes 0.6 K/uL 0.1-1.0 55 Abs Eosinophils 0.2 K/uL 0.0-0.5 55 Abs Basophils 0.1 K/uL 0.0-0.3 55 Renal Panel 05/05/2012 Rejected Test Reason Cancelled 55 PTH,Intact W/ CA -RL 01/14/2012 PTH, Intact @ 47.8 pg/mL (12-65) 60, 61 Calcium @ 8.9 mg/dL (8.4-10.2) 60, 62 CBC With Auto Diff 01/14/2012 WBC 7.0 K/UL (4.1-11.0) 60 RBC 3.86 M/UL Low (4.00-5.40) 60 HGB 11.1 GM/DL Low (12.0-16.0) 60 HCT 32.0 % Low (36.0-47.0) 60 MCV 83.1 FL (80.0-95.0) 60 MCH 28.9 pg (27.0-32.0) 60 MCHC 34.8 g/dL (32.0-36.0) 60 RDW 16.1 % High (10.5-14.5) 60 PLT 156 K/UL (150-400) 60 MPV 10.4 FL (7.1-10.7) 60 Neut % 59.9 % (35.0-75.0) 60 Lymph % 26.6 % (16.0-52.0) 60 Carver % 10.1 % High (0-8.0) 60 Eos % 3.0 % (0-5.0) 60 Baso % 0.4 % (0-4.0) 60 Neut # 4.2 K/UL (1.8-7.7) 60 Lymph # 1.9 K/UL (1.2-4.8) 60 Carver # 0.7 K/UL (0-0.8) 60 Eos # 0.2 K/UL (0-0.5) 60 Baso # 0.0 K/UL (0-0.2) 60, 63 Renal Panel 01/14/2012 Sodium 144 mmol/L High 134-142 60, 64 Potassium 4.9 mmol/L (3.6-5.2) 60 Chloride 108 mmol/L (100-108) 60 Co2 25 mmol/L (22-31) 60 Anion Gap 11 mmol/L (7-16) 60 Urea Nitrogen 14 mg/dL (7-24) 60 Creatinine 1.8 mg/dL High (0.6-1.0) 60 BUN/Creat Ratio 7.8 RATIO Low (10.0-20.0) 60 Glucose 96 mg/dL (70-99) 60 Calcium 8.8 mg/dL (8.4-10.2) 60 Phosphorus 2.9 mg/dL (2.5-4.5) 60 Albumin 3.7 g/dL (3.5-4.6) 60 GFR 34 ML/MIN/1.73M2 Low (>59) 60 GFR ( Amer) 41 ML/MIN/1.73M2 Low (>59) 60 GFR Interpretation (SEE NOTE) 60, 65 Rejected Test Reason Cancelled 60 CBC With Auto Diff 08/19/2011 WBC 7.1 K/UL (4.1-11.0) 66 RBC 3.90 M/UL Low (4.00-5.40) 66 HGB 11.4 GM/DL Low (12.0-16.0) 66 HCT 33.3 % Low (36.0-47.0) 66 MCV 85.4 FL (80.0-95.0) 66 MCH 29.2 pg (27.0-32.0) 66 MCHC 34.2 g/dL (32.0-36.0) 66 RDW 15.1 % High (10.5-14.5) 66 PLT 176 K/UL (150-400) 66 MPV 9.4 FL (7.1-10.7) 66 Neut % 59.9 % (35.0-75.0) 66 Lymph % 26.7 % (16.0-52.0) 66 Carver % 9.0 % High (0-8.0) 66 Eos % 3.7 % (0-5.0) 66 Baso % 0.7 % (0-4.0) 66 Neut # 4.2 K/UL (1.8-7.7) 66 Lymph # 1.9 K/UL (1.2-4.8) 66 Carver # 0.6 K/UL (0-0.8) 66 Eos # 0.3 K/UL (0-0.5) 66 Baso # 0.1 K/UL (0-0.2) 66, 67 Renal Panel 08/19/2011 Sodium 141 mmol/L (136-145) 66 Potassium 4.8 mmol/L (3.6-5.2) 66 Chloride 105 mmol/L (100-108) 66 Co2 28 mmol/L (22-31) 66 Anion Gap 8 mmol/L (7-16) 66 Urea Nitrogen 22 mg/dL (7-24) 66 Creatinine 2.1 mg/dL High (0.6-1.0) 66 BUN/Creat Ratio 10.5 RATIO (10.0-20.0) 66 Glucose 116 mg/dL High (70-99) 66, 68 Calcium 8.9 mg/dL (8.4-10.2) 66 Phosphorus 4.0 mg/dL (2.5-4.5) 66 Albumin 3.8 g/dL (3.5-4.6) 66 GFR 28 ML/MIN/1.73M2 Low (>59) 66 GFR ( Amer) 34 ML/MIN/1.73M2 Low (>59) 66 GFR Interpretation (SEE NOTE) 66, 69 Rejected Test Reason Cancelled 66 PTH,Intact W/ CA -RL 08/19/2011 PTH, Intact @ 40.1 pg/mL (-) 66, 70 Calcium @ 9.5 mg/dL (8.4-10.2) 66, 71 PTH,Intact W/ CA -RL 05/28/2011 PTH, Intact @ 58.0 pg/mL (12-65) 72, 73 Calcium @ 8.9 mg/dL (8.4-10.2) 72, 74 CBC With Auto Diff 05/28/2011 WBC 4.9 K/UL (4.1-11.0) 72 RBC 4.20 M/UL (4.00-5.40) 72 HGB 12.5 GM/DL (12.0-16.0) 72 HCT 35.5 % Low (36.0-47.0) 72 MCV 84.6 FL (80.0-95.0) 72 MCH 29.7 pg (27.0-32.0) 72 MCHC 35.1 g/dL (32.0-36.0) 72 RDW 15.7 % High (10.5-14.5) 72 PLT 151 K/UL (150-400) 72 MPV 11.6 FL High (7.1-10.7) 72 Neut % 52.0 % (35.0-75.0) 72 Lymph % 35.2 % (16.0-52.0) 72 Carver % 9.7 % High (0-8.0) 72 Eos % 2.4 % (0-5.0) 72 Baso % 0.7 % (0-4.0) 72 Neut # 2.6 K/UL (1.8-7.7) 72 Lymph # 1.7 K/UL (1.2-4.8) 72 Carver # 0.5 K/UL (0-0.8) 72 Eos # 0.1 K/UL (0-0.5) 72 Baso # 0.0 K/UL (0-0.2) 72, 75 Renal Panel 05/28/2011 Sodium 139 mmol/L (136-145) 72 Potassium 4.5 mmol/L (3.6-5.2) 72 Chloride 108 mmol/L (100-108) 72 Co2 19 mmol/L Low (22-31) 72 Anion Gap 12 mmol/L (7-16) 72 Urea Nitrogen 23 mg/dL (7-24) 72 Creatinine 2.5 mg/dL High (0.6-1.0) 72 BUN/Creat Ratio 9.2 RATIO Low (10.0-20.0) 72 Glucose 111 mg/dL High (70-99) 72 Calcium 9.0 mg/dL (8.4-10.2) 72 Phosphorus 2.2 mg/dL Low (2.5-4.5) 72 Albumin 4.2 g/dL (3.5-4.6) 72 GFR 23 ML/MIN/1.73M2 Low (>59) 72 GFR ( Amer) 28 ML/MIN/1.73M2 Low (>59) 72 GFR Interpretation (SEE NOTE) 72, 76 Direct LDL 12/04/2010 Direct LDL @ 103 mg/dL (<130) 77 Renal Panel 12/04/2010 Albumin - LA 3.6 mg/dL 3.5-4.6 78 Calcium - LA 8.8 mg/dL 8.4-10.2 78 Co2 (Carbon Dioxide) - LA 27 mmol/L 22-31 78 Chloride - LA 106 mmol/L 100-108 78 Creatinine, Serum - LA N/A mg/dL 0.6-1.0 78 Glucose - LA 98 mg/dL 70-99 78 Phosphorus-LA 3.1 mg/dL 2.5-4.5 78 Potassium-LA 4.5 mmol/L 3.6-5.2 78 Sodium-Na 143 mmol/L 136-145 78 Urea Nitrogen (BUN) - LA 19 mg/dL 7-24 78 GFR - LA 37 ML/MIN/1.73M2 Low 59.001-9999 78 GFR Calculation - LA (SEE NOTE) 78, 79 GFR () - LA 44 ML/MIN/1.73M2 Low 59.001-9999 78 Anion Gap - LA 10 mmol/L 7-16 78 Creatinine, Serum 1.7 mg/dL (0.6-1.0) 78 BUN/Creat Ratio - LA 11.2 RATIO 10.0-20.0 78 Lipid Panel 12/04/2010 Cholesterol - LA 168 mg/dL 0-200 78 Triglyceride-LA 403 mg/dL High 30-200 78 HDL Cholesterol - LA 21 mg/dL Low 40.001-9999 78, 80 Cholesterol/HDL Ratio-LA 8.0 RATIO 78, 81 LDL Cholesterol-LA UNABLE TO CALCUL <SEE NOTE> (<130) 78, 82 mg/dL Laboratory test 12/04/2010 TSH, Ultrasensitive-LA 2.706 0.360-4.170 78, 83 finding mIU/mL Laboratory test 12/04/2010 PTH Intact-LA 61.6 pmol/L 12-65 78, 84 finding Direct LDL 11/16/2009 Direct LDL @ 137 mg/dL High (<130) 85 Laboratory test 11/16/2009 Vitamin D 25 Hydroxy - 14 ng/mL Low 31-100 86 , 87 finding LA Lipid Panel 11/16/2009 Cholesterol - LA 214 mg/dL (0-200) 86 Triglyceride-LA 314 mg/dL High 30-200 86, 88 HDL Cholesterol - LA 33 mg/dL (>40) 86, 89 Cholesterol/HDL Ratio-LA 6.5 RATIO 86, 90 LDL Cholesterol-LA UNABLE TO CALCUL <SEE NOTE> (<130) 86, 91 mg/dL Laboratory test 11/16/2009 TSH, Ultrasensitive-LA 2.210 mIU/mL 0.360- 4.170 86, 92 finding Magnesium - LA 1.9 mg/dL 1.7-2.4 86, 93 CMP 11/16/2009 Sodium-Na 146 mmol/L (136-145) 86 Potassium-LA 4.9 mmol/L 3.6-5.2 86 Chloride - LA 105 mmol/L 100-108 86 Co2 (Carbon Dioxide) - LA 27 mmol/L 22-31 86 Glucose - LA 98 mg/dL 70-99 86, 94 Calcium - LA 9.7 mg/dL 8.4-10.2 86 Urea Nitrogen (BUN) - LA 18 mg/dL 7-24 86 Creatinine, Serum 1.6 mg/dL (0.6-1.0) 86 BUN/Creat Ratio - LA 11.3 RATIO 10.0-20.0 86 Anion Gap - LA 14 mmol/L 7-16 86 Total Protein - LA 7.8 g/dL 6.4-8.2 86 Albumin - LA 4.1 mg/dL 3.5-4.6 86 Alt (SGPT) Liver Enzyme -LA 21 U/L (25-69) 86 Ast (Sgot) Liver Enzyme - LA 14 U/L 11-39 86 Bilirubin, Total - LA 0.4 mg/dL 0.0-1.0 86 Alkaline Phosphatase - LA 42 U/L Low 50-136 86 Globulin - LA 3.7 g/dL 2.7-4.3 86 Albumin Globulin Ratio-LA 1.1 RATIO 86 GFR - LA 39 ML/MIN/1.73M2 (>59) 86 GFR () - LA 48 ML/MIN/1.73M2 Low 59.001-9999 86 GFR Calculation - LA (SEE NOTE) 86, 95 CBC With Auto Diff 11/16/2009 WBC-LA 9.1 K/UL 4.1-11.0 86 RBC -LA 4.48 M/UL 4.00-5.40 86 Hemoglobin - LA 12.8 GM/DL 12.0-16.0 86 Hematocrit - LA 38.2 % 36.0-47.0 86 MCV -LA 85.2 FL 80.0-95.0 86 MCH -LA 28.6 pg 27.0-32.0 86 MCHC -LA 33.5 g/dL 32.0-36.0 86 RDW -LA 14.6 % (10.5-14.5) 86 Platelet Count 201 K/ul 150-400 86 MPV -LA 9.8 FL 7.1-10.7 86 Dtype -LA AUTOMATED DIFFER <SEE NOTE> 86, 96 Neutrophil % -LA 67.5 % 35.0-75.0 86 Lymphocytes % -LA 21.8 % 16.0-52.0 86 Monocytes % -LA 8.8 % High 0-8.0 86 Eosinophils % -LA 1.5 % 0-5.0 86 Basophils % -LA 0.4 % 0-4.0 86 Absoulte Neutrophils -LA 6.1 K/UL 1.8-7.7 86 Absolute Lymphocytes -LA 2.0 K/UL 1.2-4.8 86 Absolute Monocytes -LA 0.8 K/UL 0-0.8 86 Absolute Eosinophils -LA 0.1 K/UL 0-0.5 86 Absolute Basophils -LA 0.0 K/UL 0-0.2 86, 97 Urine Culture 11/16/2009 Urine Culture - LA (SEE NOTE) 98, 99 Specimen Description - LA N/A 98 Special Requests - LA N/A 98 Culture Result - LA N/A 98 Report Status - LA N/A 98 Urinalysis With Microscopic-RL 11/16/2009 Color -LA YELLOW 98 Appearance -LA CLOUDY 98 Specific [place] -LA 1.012 1.003-1.030 98 PH Urine -LA 6.0 5.0-7.5 98 Leukocyte Esterase -LA 2+ (Neg) 98 Nitrite -LA NEGATIVE (Neg) 98 Protein Urine-LA NEGATIVE (Neg) 98 Glucose Urine -LA NEGATIVE (Neg) 98 Ketone Urine -LA NEGATIVE (Neg) 98 Urobilinogen -LA 0.2 mg/dL 0-1.0 98 Blood/HGB Urine-RL 3+ (Neg) 98 Urine WBC -LA * 6-10 /HPF (0-5) 98 Urine RBC -LA 0-2 /HPF (0-2) 98 Bacteria -LA 1+ /HPF 98, 100 Fine Gran Cast N/A /LPF 98 WBC Cast N/A /LPF 98 Bilirubin Urine -LA NEGATIVE (Neg) 98 Epithelial Cells -LA 1+ /HPF 98 CBC With Auto Diff 10/06/2008 WBC-LA 7.6 K/UL 4.1-11.0 101 RBC -LA 4.86 M/UL 4.00-5.40 101 Hemoglobin - LA 13.3 GM/DL (12.0-16.0) 101 Hematocrit - LA 39.1 % (36.0-47.0) 101 MCV -LA 80.4 FL 80.0-95.0 101 MCH -LA 27.2 pg 27.0-32.0 101 MCHC -LA 33.9 g/dL 32.0-36.0 101 RDW -LA 14.9 % High 10.5-14.5 101 Platelet Count 199 K/ul 150-400 101 MPV -LA 10.4 FL 7.1-10.7 101 Dtype -LA AUTOMATED DIFFER <SEE NOTE> 101, 102 Neutrophil % -LA 62.0 % 35.0-75.0 101 Lymphocytes % -LA 23.8 % 16.0-52.0 101 Monocytes % -LA 10.2 % High 0-8.0 101 Eosinophils % -LA 3.5 % 0-5.0 101 Basophils % -LA 0.5 % 0-4.0 101 Absoulte Neutrophils -LA 4.7 K/UL 1.8-7.7 101 Absolute Lymphocytes -LA 1.8 K/UL 1.2-4.8 101 Absolute Monocytes -LA 0.8 K/UL 0-0.8 101 Absolute Eosinophils -LA 0.3 K/UL 0-0.5 101 Absolute Basophils -LA 0.0 K/UL 0-0.2 101, 103 CMP 10/06/2008 Sodium-Na 143 mmol/L 136-145 101 Potassium-LA 5.2 mmol/L 3.6-5.2 101 Chloride - LA 105 mmol/L 100-108 101 Co2 (Carbon Dioxide) - LA 28 mmol/L 22-31 101 Glucose - LA 106 mg/dL (70-110) 101, 104 Calcium - LA 9.5 mg/dL 8.4-10.2 101 Urea Nitrogen (BUN) - LA 14 mg/dL 7-24 101 Creatinine, Serum 1.3 mg/dL High 0.6-1.0 101 BUN/Creat Ratio - LA 10.8 RATIO 10.0-20.0 101 Anion Gap - LA 10 mmol/L 7-16 101 Total Protein - LA 7.5 g/dL 6.4-8.2 101 Albumin - LA 4.1 mg/dL 3.5-4.6 101 Alt (SGPT) Liver Enzyme -LA 22 U/L Low 25-69 101 Ast (Sgot) Liver Enzyme - LA 13 U/L 11-39 101 Bilirubin, Total - LA 0.5 mg/dL 0.0-1.0 101 Alkaline Phosphatase - LA 61 U/L 50-136 101 Globulin - LA 3.4 g/dL 2.7-4.3 101 Albumin Globulin Ratio-LA 1.2 RATIO 101 GFR - LA 50 ML/MIN/1.73M2 (>59) 101 GFR () - LA 61 ML/MIN/1.73M2 59.001-9999 101 GFR Calculation - LA (SEE NOTE) 101, 105 Lipid Panel 10/06/2008 Cholesterol - LA 206 mg/dL (0-200) 101 Triglyceride-LA 217 mg/dL High 30-200 101 HDL Cholesterol - LA 31 mg/dL (>40) 101, 106 Cholesterol/HDL Ratio-LA 6.6 RATIO 101, 107 LDL Cholesterol-LA 132 mg/dL (<130) 101, 108 CBC With Auto Diff 02/04/2007 WBC-LA 5.8 K/UL 4.1-11.0 109 RBC -LA 4.18 M/UL 4.00-5.40 109 Hemoglobin - LA 12.5 GM/DL 12.0-16.0 109 Hematocrit - LA 36.4 % 36.0-47.0 109 MCV -LA 87.2 FL 80.0-95.0 109 MCH -LA 29.9 pg 27.0-32.0 109 MCHC -LA 34.3 g/dL 32.0-36.0 109 RDW -LA 13.7 % 10.5-14.5 109 Platelet Count-LA 194 K/UL 150-400 109 MPV -LA 10.6 FL 7.1-10.7 109 Dtype -LA AUTOMATED DIFFER <SEE NOTE> 109, 110 Neutrophil % -LA 55.6 % 35.0-75.0 109 Lymphocytes % -LA 33.4 % 16.0-52.0 109 Monocytes % -LA 7.6 % 0-8.0 109 Eosinophils % -LA 2.5 % 0-5.0 109 Basophils % -LA 0.9 % 0-4.0 109 Absoulte Neutrophils -LA 3.2 K/UL 1.8-7.7 109 Absolute Lymphocytes -LA 1.9 K/UL 1.2-4.8 109 Absolute Monocytes -LA 0.4 K/UL 0-0.8 109 Absolute Eosinophils -LA 0.1 K/UL 0-0.5 109 Absolute Basophils -LA 0.1 K/UL 0-0.2 109 Laboratory test 02/04/2007 TSH, Ultrasensitive-LA 1.900 mIU/mL 0.340- 5.600 109 finding Lipid Panel 07/29/2006 Cholesterol - LA 212 mg/dL High 0-200 109 Triglyceride-LA 232 mg/dL High 30-200 109 HDL Cholesterol - LA 32 mg/dL 0-39 109, 111 Cholesterol/HDL Ratio-LA 6.6 RATIO 109, 112 LDL Cholesterol-LA 134 mg/dL High 0-129 109, 113 Basic (BMP) 07/29/2006 Sodium-Na 140 mmol/L 136-145 109 Potassium-LA 4.3 mmol/L 3.6-5.2 109 Chloride - LA 103 mmol/L 100-108 109 Co2 (Carbon Dioxide) - LA 28 mmol/L 22-31 109 Glucose - LA 90 mg/dL 70-110 109 Calcium - LA 9.4 mg/dL 8.4-10.2 109 Urea Nitrogen (BUN) - LA 12 mg/dL 7-24 109 Creatinine, Serum 1.1 mg/dL (0.6-1.0) 109 BUN/Creat Ratio - LA 10.9 RATIO (10.0-20.0) 109 Anion Gap - LA 10 mmol/L 7-16 109 GFR - LA 62 ML/MIN/1.7 (>59) 109 GFR () - LA 75 ML/MIN/1.7 (>59) 109 CBC With Auto Diff 07/29/2006 WBC-LA 8.6 K/UL 4.1-11.0 109 RBC -LA 4.67 M/UL 4.00-5.40 109 Hemoglobin - LA 14.1 GM/DL 12.0-16.0 109 Hematocrit - LA 40.7 % 36.0-47.0 109 MCV -LA 87.2 FL 80-95 109 MCH -LA 30.1 pg 27.0-32.0 109 MCHC -LA 34.5 g/dL 32.0-36.0 109 RDW -LA 13.7 % 10.5-14.5 109 Platelet Count-LA 225 K/UL (150-400) 109 MPV -LA 10.5 FL 7.1-10.7 109 Dtype -LA AUTOMATED DIFFER <SEE NOTE> 109, 114 Neutrophil % -LA 65.0 % 35.0-75.0 109 Lymphocytes % -LA 23.3 % 16.0-52.0 109 Monocytes % -LA 7.6 % 0.0-8.0 109 Eosinophils % -LA 3.6 % 0.0-4.0 109 Basophils % -LA 0.5 % 0.0-4.0 109 Absoulte Neutrophils -LA 5.6 K/UL 1.8-7.7 109 Absolute Lymphocytes -LA 2.0 K/UL 1.2-4.8 109 Absolute Monocytes -LA 0.6 K/UL 0.0-0.8 109 Absolute Eosinophils -LA 0.3 K/UL 0.0-0.5 109 Absolute Basophils -LA 0.0 K/UL 0.0-0.2 109 Laboratory test 07/29/2006 TSH, Ultrasensitive-LA 2.540 mIU/mL 0.340- 5.60 109 finding Alt (SGPT) Liver Enzyme -LA 31 U/L 25-69 109 Ast (Sgot) Liver Enzyme - LA 17 U/L 11-39 109 CBC 03/21/2005 White Blood Cells 7.9 x10*3 4.3-10.9 RBC 4.77 x10*6 3.80-5.30 Hemoglobin 14.8 g/dL 11.8-15.8 Hematocrit 42.9 % 35.0-47.0 MCV 89.8 fl 82.0-98.0 MCH 31.1 pg 27.5-33.5 MCHC 34.6 g/dL 32.0-36.0 RDW 13.0 % 11.5-14.5 Platelet Count 208 x10*3 130-400 MPV 10.0 fl 6.5-10.5 Segmented Neutrophils 56.4 % 44.0-74.0 Lymphocytes 30.3 % 15.0-45.0 Monocytes 9.1 % 2.0-13.0 Eosinophils 3.7 % 0.0-6.0 Basophils 0.5 % 0.0-2.0 Neutrophil Absolute 4.5 x10*3 1.4-7.0 Lymphocytes Absolute 2.4 x10*3 1.0-3.4 Monocyte Absolute 0.7 x10*3 0.2-1.0 Eosinophil Absolute 0.3 x10*3 0.0-0.5 Basophil Absolute 0.0 x10*3 0.0-0.2 Laboratory test finding 03/21/2005 TSH - [facility] 1.620 uIU/ml 0.350- 5.500 CMP 03/21/2005 Sodium, Serum 143 mmol/L 136-146 Potassium, Serum 4.8 mmol/L 3.5-5.3 Chloride 108 mmol/L 98-110 Carbon Dioxide 27 mmol/L 20-32 Urea Nitrogen, Serum 18 mg/dL 4-18 Glucose 90 mg/dL 61-110 Creatinine, Serum 1.2 mg/dL 0.5-1.2 Calcium, Serum 9.8 mg/dL 8.4-10.6 Protein, Serum Total 7.1 g/dL 6.4-8.2 Albumin 4.4 g/dL 3.5-4.7 Alt 22 U/L 7-40 Asparate Aminotransferase (Sgot) 21 U/L 3-30 Alkaline Phosphatase 42 U/L 10-118 Bilirubin, Total 0.59 mg/dL 0.30-1.20 Lipid Panel 03/21/2005 Cholesterol, Total 225 mg/dL High 120-200 115 Triglycerides 210 mg/dL 116 High Density Lipoprotein (HDL) Cholesterol 42 mg/dL 40-60 Low Density Lipoprotein (LDL) Cholesterol 141 mg/dL 117 LDL/HDL Cholesterol 3.4 118 Chol/HDL Cholesterol 5.4 119 Laboratory test finding 03/21/2005 GFR (Calculated) 56 120 Laboratory test finding 08/22/2003 Helicobacter Pylori (H. 0.29 Index Pylori), Igg CBC-[facility] 08/22/2003 White Blood Cells 7.3 x10*3 RBC 5.04 x10*6 Hemoglobin 15.8 g/dL Hematocrit 45.0 % MCV 89.2 fl MCH 31.3 pg MCHC 35.1 g/dL RDW 12.6 % Platelet Count 188 x10*3 MPV 10.1 fl Segmented Neutrophils 51.5 % Lymphocytes 35.8 % Monocytes 8.5 % Eosinophils 4.0 % Basophils 0.2 % Neutrophil Absolute 3.8 x10*3 Lymphocytes Absolute 2.6 x10*3 Monocyte Absolute 0.6 x10*3 Eosinophil Absolute 0.3 x10*3 Basophil Absolute 0.0 x10*3 1 Per NCEP ATP III Guidelines: Results lower than 40 mg/dL are suggestive of increased risk for coronary artery disease. Results > or=to 60 mg/dL are considered a negative risk factor. 2 Per NCEP ATP III Guidelines: Normal Population <130 Patients with medical conditions: CHD/DM Optimal: <100 Borderline high: 130-159 High: 160-189 Very high: >189 3 Unless otherwise specified, testing performed by [facility] [address] [place] [id number] 4 Updated reference range on new analyzer 5 Updated reference range on new analyzer 6 21 Electrolytes confirmed by repeat. 7 Concerning GFR Guidelines for Americans: Normal function or mild renal disease, if clinically at risk: >/=60 mL/min Moderately decreased: 30-59 Severely decreased: 15-29 Renal failure: <15 8 Concerning GFR Guidelines: Normal function or mild renal disease, if clinically at risk: >/=60 mL/min Moderately decreased: 30-59 Severely decreased: 15-29 Renal failure: <15 Glomerular Filtration Rate (GFR) is estimated based on the MDRD equation, which assumes a steady state for creatinine as recommended by the National Kidney Disease Education Program in conjunction with the National Institutes of Health and the National Kidney Foundation. Clinical conditions in which it may be necessary to measure GFR by using clearance methods include extremes of age and body size, severe malnutrition or obesity, diseases of skeletal muscle, paraplegia or quadriplegia, vegetarian diet, rapidly changing kidney function, and calculation of the dose of potentially toxic drugs that are excreted by the kidneys. 9 Updated reference range on new analyzer 10 Unless otherwise specified, testing performed by [facility] [address] [place] [id number] 11 5.5 No visible hemolysis. 12 Concerning GFR Guidelines for Americans: Normal function or mild renal disease, if clinically at risk: >/=60 mL/min Moderately decreased: 30-59 Severely decreased: 15-29 Renal failure: <15 13 Concerning GFR Guidelines: Normal function or mild renal disease, if clinically at risk: >/=60 mL/min Moderately decreased: 30-59 Severely decreased: 15-29 Renal failure: <15 Glomerular Filtration Rate (GFR) is estimated based on the MDRD equation, which assumes a steady state for creatinine as recommended by the National Kidney Disease Education Program in conjunction with the National Institutes of Health and the National Kidney Foundation. Clinical conditions in which it may be necessary to measure GFR by using clearance methods include extremes of age and body size, severe malnutrition or obesity, diseases of skeletal muscle, paraplegia or quadriplegia, vegetarian diet, rapidly changing kidney function, and calculation of the dose of potentially toxic drugs that are excreted by the kidneys. 14 Per NCEP ATP III Guidelines: Results lower than 40 mg/dL are suggestive of increased risk for coronary artery disease. Results > or=to 60 mg/dL are considered a negative risk factor. 15 Per NCEP ATP III Guidelines: Normal Population <130 Patients with medical conditions: CHD/DM Optimal: <100 Borderline high: 130-159 High: 160-189 Very high: >189 16 Per NCEP ATP III Guidelines: Results lower than 40 mg/dL are suggestive of increased risk for coronary artery disease. Results > or=to 60 mg/dL are considered a negative risk factor. 17 Per NCEP ATP III Guidelines: Normal Population <130 Patients with medical conditions: CHD/DM Optimal: <100 Borderline high: 130-159 High: 160-189 Very high: >189 18 Concerning GFR Guidelines for Americans: Normal function or mild renal disease, if clinically at risk: >/=60 mL/min Moderately decreased: 30-59 Severely decreased: 15-29 Renal failure: <15 19 Concerning GFR Guidelines: Normal function or mild renal disease, if clinically at risk: >/=60 mL/min Moderately decreased: 30-59 Severely decreased: 15-29 Renal failure: <15 Glomerular Filtration Rate (GFR) is estimated based on the MDRD equation, which assumes a steady state for creatinine as recommended by the National Kidney Disease Education Program in conjunction with the National Institutes of Health and the National Kidney Foundation. Clinical conditions in which it may be necessary to measure GFR by using clearance methods include extremes of age and body size, severe malnutrition or obesity, diseases of skeletal muscle, paraplegia or quadriplegia, vegetarian diet, rapidly changing kidney function, and calculation of the dose of potentially toxic drugs that are excreted by the kidneys. 20 Lutenizing Hormone Female Normal Values: Mid-Follicular: 2.1-10.9 mIU/mL Mid-cycle Peak: 19.2-103.0 mIU/mL Mid-Luteal: 1.2-12.9 mIU/mL Post-menopausal:10.9-58.6 mIU/mL 21 Unless otherwise specified, testing performed by [facility] [address] [place] [id number] 22 FSH Female Normal Values: Mid-Follicular: 3.9-8.8 mIU/mL Mid-cycle Peak: 4.5-22.5 mIU/mL Mid-Luteal: 1.8-5.1 mIU/mL Post-menopausal:16.7-113.6 mIU/mL 23 5.5 No visible hemolysis. 24 2.8 Consistent with previous result(s). 25 Concerning GFR Guidelines for Americans: Normal function or mild renal disease, if clinically at risk: >/=60 mL/min Moderately decreased: 30-59 Severely decreased: 15-29 Renal failure: <15 26 Concerning GFR Guidelines: Normal function or mild renal disease, if clinically at risk: >/=60 mL/min Moderately decreased: 30-59 Severely decreased: 15-29 Renal failure: <15 Glomerular Filtration Rate (GFR) is estimated based on the MDRD equation, which assumes a steady state for creatinine as recommended by the National Kidney Disease Education Program in conjunction with the National Institutes of Health and the National Kidney Foundation. Clinical conditions in which it may be necessary to measure GFR by using clearance methods include extremes of age and body size, severe malnutrition or obesity, diseases of skeletal muscle, paraplegia or quadriplegia, vegetarian diet, rapidly changing kidney function, and calculation of the dose of potentially toxic drugs that are excreted by the kidneys. 27 Concerning GFR Guidelines for Americans: Normal function or mild renal disease, if clinically at risk: >/=60 mL/min Moderately decreased: 30-59 Severely decreased: 15-29 Renal failure: <15 28 Concerning GFR Guidelines: Normal function or mild renal disease, if clinically at risk: >/=60 mL/min Moderately decreased: 30-59 Severely decreased: 15-29 Renal failure: <15 Glomerular Filtration Rate (GFR) is estimated based on the MDRD equation, which assumes a steady state for creatinine as recommended by the National Kidney Disease Education Program in conjunction with the National Institutes of Health and the National Kidney Foundation. Clinical conditions in which it may be necessary to measure GFR by using clearance methods include extremes of age and body size, severe malnutrition or obesity, diseases of skeletal muscle, paraplegia or quadriplegia, vegetarian diet, rapidly changing kidney function, and calculation of the dose of potentially toxic drugs that are excreted by the kidneys. 29 Microbiology results SOURCE URINE COLONY COUNT >100,000 PRELIMINARY RESULT Gram negative raeann. ID & Sensitivity to Follow. FINAL RESULT Escherichia coli (Isolate 1) Sensitivity Analysis Isolate 1 --------- AMIKACIN <=16 S AMPICILLIN <=8 S AMPICILLIN/SULBACTAM <=8/4 S CEFAZOLIN <=2 S CEFEPIME <=8 S CEFTAZIDIME <=1 S CEFTRIAXONE <=1 S CIPROFLOXACIN <=1 S ERTAPENEM <=0.5 S GENTAMYCIN <=2 S IMIPENEM <=1 S LEVOFLOXACIN <=2 S NITROFURANTOIN <=32 S PIPERACILLIN/TAZOBACTAM <=16 S TETRACYCLINE <=4 S TOBRAMYCIN <=4 S TRIMETHOPRIM/SULFAMETHOXAZ <=2/38 S S=Sensitive;I=Indeterminate;R=Resistant 30 This sample is drawn by:BRIAN. 31 Concerning GFR Guidelines for Americans: Normal function or mild renal disease, if clinically at risk: >/=60 mL/min Moderately decreased: 30-59 Severely decreased: 15-29 Renal failure: <15 32 Concerning GFR Guidelines: Normal function or mild renal disease, if clinically at risk: >/=60 mL/min Moderately decreased: 30-59 Severely decreased: 15-29 Renal failure: <15 Glomerular Filtration Rate (GFR) is estimated based on the MDRD equation, which assumes a steady state for creatinine as recommended by the National Kidney Disease Education Program in conjunction with the National Institutes of Health and the National Kidney Foundation. Clinical conditions in which it may be necessary to measure GFR by using clearance methods include extremes of age and body size, severe malnutrition or obesity, diseases of skeletal muscle, paraplegia or quadriplegia, vegetarian diet, rapidly changing kidney function, and calculation of the dose of potentially toxic drugs that are excreted by the kidneys. 33 Per NCEP ATP III Guidelines: Results lower than 40 mg/dL are suggestive of increased risk for coronary artery disease. Results > or=to 60 mg/dL are considered a negative risk factor. 34 Per NCEP ATP III Guidelines: Normal Population <130 Patients with medical conditions: CHD/DM Optimal: <100 Borderline high: 130-159 High: 160-189 Very high: >189 35 This sample is drawn by:RH 36 Per NCEP ATP III Guidelines: Results lower than 40 mg/dL are suggestive of increased risk for coronary artery disease. Results > or=to 60 mg/dL are considered a negative risk factor. 37 Per NCEP ATP III Guidelines: Normal Population <130 Patients with medical conditions: CHD/DM Optimal: <100 Borderline high: 130-159 High: 160-189 Very high: >189 38 This sample is drawn by:MM 39 Per NCEP ATP III Guidelines: Results lower than 40 mg/dL are suggestive of increased risk for coronary artery disease. Results > or=to 60 mg/dL are considered a negative risk factor. 40 Per NCEP ATP III Guidelines: Normal Population <130 Patients with medical conditions: CHD/DM Optimal: <100 Borderline high: 130-159 High: 160-189 Very high: >189 41 This sample is drawn by:[email or web address] RESULTS TO @[phone]. 42 Concerning GFR Guidelines: Normal function or mild renal disease, if clinically at risk: >/=60 mL/min Moderately decreased: 30-59 Severely decreased: 15-29 Renal failure: <15 Glomerular Filtration Rate (GFR) is estimated based on the MDRD equation, which assumes a steady state for creatinine as recommended by the National Kidney Disease Education Program in conjunction with the National Institutes of Health and the [employer] Kid[employer]. Clinical conditions in which it may be necessary to measure GFR by using clearance methods include extremes of age and body size, severe malnutrition or obesity, diseases of skeletal muscle, paraplegia or quadriplegia, vegetarian diet, rapidly changing kidney function, and calculation of the dose of potentially toxic drugs that are excreted by the kidneys. 43 Concerning GFR Guidelines for Americans: Normal function or mild renal disease, if clinically at risk: >/=60 mL/min Moderately decreased: 30-59 Severely decreased: 15-29 Renal failure: <15 44 Unless otherwise specified, testing performed by [facility] [address] [place] [phone] This sample is drawn by:NIRMAL 46 Per NCEP ATP III Guidelines: Results lower than 40 mg/dL are suggestive of increased risk for coronary artery disease. Results > or=to 60 mg/dL are considered a negative risk factor. 47 Per NCEP ATP III Guidelines: Optimal: <100 Near optimal: 100-129 Borderline high: 130-159 High: 160-189 Very high: >189 48 Concerning GFR Guidelines for Americans: Normal function or mild renal disease, if clinically at risk: >/=60 mL/min Moderately decreased: 30-59 Severely decreased: 15-29 Renal failure: <15 49 Concerning GFR Guidelines: Normal function or mild renal disease, if clinically at risk: >/=60 mL/min Moderately decreased: 30-59 Severely decreased: 15-29 Renal failure: <15 Glomerular Filtration Rate (GFR) is estimated based on the MDRD equation, which assumes a steady state for creatinine as recommended by the National Kidney Disease Education Program in conjunction with the National Institutes of Health and the National Kidney Foundation. Clinical conditions in which it may be necessary to measure GFR by using clearance methods include extremes of age and body size, severe malnutrition or obesity, diseases of skeletal muscle, paraplegia or quadriplegia, vegetarian diet, rapidly changing kidney function, and calculation of the dose of potentially toxic drugs that are excreted by the kidneys. 50 This sample is drawn by:CINDY 51 Concerning GFR Guidelines for Americans: Normal function or mild renal disease, if clinically at risk: >/=60 mL/min Moderately decreased: 30-59 Severely decreased: 15-29 Renal failure: <15 52 Concerning GFR Guidelines: Normal function or mild renal disease, if clinically at risk: >/=60 mL/min Moderately decreased: 30-59 Severely decreased: 15-29 Renal failure: <15 Glomerular Filtration Rate (GFR) is estimated based on the MDRD equation, which assumes a steady state for creatinine as recommended by the National Kidney Disease Education Program in conjunction with the National Institutes of Health and the National Kidney Foundation. Clinical conditions in which it may be necessary to measure GFR by using clearance methods include extremes of age and body size, severe malnutrition or obesity, diseases of skeletal muscle, paraplegia or quadriplegia, vegetarian diet, rapidly changing kidney function, and calculation of the dose of potentially toxic drugs that are excreted by the kidneys. 53 Per NCEP ATP III Guidelines: Results lower than 40 mg/dL are suggestive of increased risk for coronary artery disease. Results > or=to 60 mg/dL are considered a negative risk factor. 54 Per NCEP ATP III Guidelines: Optimal: <100 Near optimal: 100-129 Borderline high: 130-159 High: 160-189 Very high: >189 55 This sample is drawn by:BRIAN. 56 Per NCEP ATP III Guidelines: Results lower than 40 mg/dL are suggestive of increased risk for coronary artery disease. Results > or=to 60 mg/dL are considered a negative risk factor. 57 Per NCEP ATP III Guidelines: Optimal: <100 Near optimal: 100-129 Borderline high: 130-159 High: 160-189 Very high: >189 58 Concerning GFR Guidelines for Americans: Normal function or mild renal disease, if clinically at risk: >/=60 mL/min Moderately decreased: 30-59 Severely decreased: 15-29 Renal failure: <15 59 Concerning GFR Guidelines: Normal function or mild renal disease, if clinically at risk: >/=60 mL/min Moderately decreased: 30-59 Severely decreased: 15-29 Renal failure: <15 Glomerular Filtration Rate (GFR) is estimated based on the MDRD equation, which assumes a steady state for creatinine as recommended by the National Kidney Disease Education Program in conjunction with the National Institutes of Health and the National Kidney Foundation. Clinical conditions in which it may be necessary to measure GFR by using clearance methods include extremes of age and body size, severe malnutrition or obesity, diseases of skeletal muscle, paraplegia or quadriplegia, vegetarian diet, rapidly changing kidney function, and calculation of the dose of potentially toxic drugs that are excreted by the kidneys. 60 COPY TO NEPHROLOGY. [phone] FAX This sample is drawn by:CINDY 61 NOTE: New reporting units and reference range effective 2010 62 Unless otherwise specified, testing performed [place] [address] 63 Unless otherwise specified, testing performed by [place] [address] [phone] 65 NORMAL KIDNEY FUNCTION OR MILD DISEASE - GFR >OR=60 CHRONIC KIDNEY DISEASE - GFR 15 - 59 RENAL FAILURE - GFR <15 Est. GFR calculation based on the MDRD study equation, which assumes a steady state for creatinine. Est. GFR should not be used for medication dosing. Unless otherwise specified, testing performed by [facility] [address] 66 This sample is drawn by:MEGAN 67 Unless otherwise specified, testing performed by [facility] [address] [place] [address] 68 FASTING 69 NORMAL KIDNEY FUNCTION OR MILD DISEASE - GFR >OR=60 CHRONIC KIDNEY DISEASE - GFR 15 - 59 RENAL FAILURE - GFR <15 Est. GFR calculation based on the MDRD study equation, which assumes a steady state for creatinine. Est. GFR should not be used for medication dosing. Unless otherwise specified, testing performed by [facility] [address] [place] [address] 70 NOTE: New reporting units and reference range effective 2010 71 Unless otherwise specified, testing performed by [facility] [address] [place] [address] 72 This sample is drawn by: 73 NOTE: New reporting units and reference range effective 2010 74 Unless otherwise specified, testing performed by [facility] [address] [place] [address] 75 Unless otherwise specified, testing performed by [facility] [address] [place] [address] 76 NORMAL KIDNEY FUNCTION OR MILD DISEASE - GFR >OR=60 CHRONIC KIDNEY DISEASE - GFR 15 - 59 RENAL FAILURE - GFR <15 Est. GFR calculation based on the MDRD study equation, which assumes a steady state for creatinine. Est. GFR should not be used for medication dosing. Unless otherwise specified, testing performed by [facility] [address] [place] [address] 77 PER NCEP ATP III GUIDELINES: OPTIMAL < 100 NEAR OPTIMAL 100 - 129 BORDERLINE HIGH 130 - 159 HIGH 160 - 189 VERY HIGH > 189 78 FAX RESULTS TO @[phone].This sample is drawn by: 79 NORMAL KIDNEY FUNCTION OR MILD DISEASE - GFR >OR=60 CHRONIC KIDNEY DISEASE - GFR 15 - 59 RENAL FAILURE - GFR <15 Est. GFR calculation based on the MDRD study equation, which assumes a steady state for creatinine. Est. GFR should not be used for medication dosing. Unless otherwise specified, testing performed by [facility] [address] 80 PER NCEP ATP III GUIDELINES: RESULTS LOWER THAN 40 MG/DL ARE SUGGESTIVE OF INCREASED RISK FOR CORONARY ARTERY DISEASE. RESULTS > OR=TO 60 MG/DL ARE CONSIDERED A NEGATIVE RISK FACTOR. 81 INTERPRETATION OF CHOL-HDL RATIO CHD RISK FEMALE MALE VERY HIGH >8.3 >14.3 HIGH 5.6- 8.3 6.7- 14.3 AVERAGE 3.7- 5.6 4.0- 6.7 BELOW AVERAGE 2.5- 3.7 2.7- 4.0 PROTECTED <2.5 <2.7 82 UNABLE TO CALCULATE VALID LDL DUE TO INTERFERENCE FROM ELEVATED TRIGLYCERIDES (GREATER THAN 300 MG/DL). SEE RESULT FOR DIRECT LDL. Unless otherwise specified, testing performed by [facility] [place] [address] 83 Unless otherwise specified, testing performed by [facility] [place] [address] 84 NOTE: New reporting units and reference range effective 2010 Unless otherwise specified, testing performed by [facility] [place] [address] 85 PER NCEP ATP III GUIDELINES: OPTIMAL < 100 NEAR OPTIMAL 100 - 129 BORDERLINE HIGH 130 - 159 HIGH 160 - 189 VERY HIGH > 189 86 FASTING This sample is drawn by:CT 87 A REVIEW OF THE LITERATURE SUGGESTS THE FOLLOWING RANGES FOR THE CLASSIFICATION OF 25-OH VITAMIN D STATUS: VITAMIN D STATUS 25-OH VITAMIN D DEFICIENCY <20 NG/ML INSUFFICIENCY 20-30 NG/ML SUFFICIENCY 31 - 100 NG/ML TOXICITY > 100 NG/ML A PEDIATRIC REFERENCE RANGE HAS NOT BEEN ESTABLISHED USING THIS METHOD. (UPDATED RANGES EFFECTIVE 10/05/09) Unless otherwise specified, testing performed by [facility] [address] [place] [address] 88 FASTING 89 PER NCEP ATP III GUIDELINES: RESULTS LOWER THAN 40 MG/DL ARE SUGGESTIVE OF INCREASED RISK FOR CORONARY ARTERY DISEASE. RESULTS > OR=TO 60 MG/DL ARE CONSIDERED A NEGATIVE RISK FACTOR. 90 INTERPRETATION OF CHOL-HDL RATIO CHD RISK FEMALE MALE VERY HIGH >8.3 >14.3 HIGH 5.6- 8.3 6.7- 14.3 AVERAGE 3.7- 5.6 4.0- 6.7 BELOW AVERAGE 2.5- 3.7 2.7- 4.0 PROTECTED <2.5 <2.7 91 UNABLE TO CALCULATE VALID LDL DUE TO INTERFERENCE FROM ELEVATED TRIGLYCERIDES (GREATER THAN 250 MG/DL). SEE RESULT FOR DIRECT LDL. Unless otherwise specified, testing performed by [facility] [address] [place] [address] 92 Unless otherwise specified, testing performed by [facility] [address] [place] [address] 93 Unless otherwise specified, testing performed by [facility] [address] [place] [address] 94 FASTING 95 NORMAL KIDNEY FUNCTION OR MILD DISEASE - GFR >OR=60 CHRONIC KIDNEY DISEASE - GFR 15 - 59 RENAL FAILURE - GFR <15 Est. GFR calculation based on the MDRD study equation, which assumes a steady state for creatinine. Est. GFR should not be used for medication dosing. Unless otherwise specified, testing performed by [facility] [address] [place] [address] [id number] 96 AUTOMATED DIFFERENTIAL 97 Unless otherwise specified, testing performed by [facility] [address] [place] [address] 98 This sample is drawn by:CT 99 SPECIMEN DESCRIPTION URINE, COLLECTION METHOD NOT SPECIFIED CULTURE RESULTS NO GROWTH REPORT STATUS FINAL 11/17/2009 Unless otherwise specified, testing performed by [facility] [address] [place] [address] 100 Unless otherwise specified, testing performed by [facility] [address] [place] [address] [phone] FASTING This sample is drawn by: DB 102 AUTOMATED DIFFERENTIAL 103 Unless otherwise specified, testing performed by [facility] [address] [place] [address] 34341 104 FASTING 105 NORMAL KIDNEY FUNCTION OR MILD DISEASE - GFR >OR=60 CHRONIC KIDNEY DISEASE - GFR 15 - 59 RENAL FAILURE - GFR <15 Est. GFR calculation based on the MDRD study equation, which assumes a steady state for creatinine. Est. GFR should not be used for medication dosing. Unless otherwise specified, testing performed by [facility] [address] [place] [id number] 106 PER NCEP ATP III GUIDELINES: RESULTS LOWER THAN 40 MG/DL ARE SUGGESTIVE OF INCREASED RISK FOR CORONARY ARTERY DISEASE. RESULTS > OR=TO 60 MG/DL ARE CONSIDERED A NEGATIVE RISK FACTOR. 107 INTERPRETATION OF CHOL-HDL RATIO CHD RISK FEMALE MALE VERY HIGH >8.3 >14.3 HIGH 5.6- 8.3 6.7- 14.3 AVERAGE 3.7- 5.6 4.0- 6.7 BELOW AVERAGE 2.5- 3.7 2.7- 4.0 PROTECTED <2.5 <2.7 108 PER NCEP ATP III GUIDELINES: OPTIMAL < 100 NEAR OPTIMAL 100 - 129 BORDERLINE HIGH 130 - 159 HIGH 160 - 189 VERY HIGH > 189 Unless otherwise specified, testing performed by [facility] [address] [place] [address] 8[address]31 109 FASTING 110 AUTOMATED DIFFERENTIAL 111 PER NCEP ATP III GUIDELINES: RESULTS LOWER THAN 40 MG/DL ARE SUGGESTIVE OF INCREASED RISK FOR CORONARY ARTERY DISEASE. RESULTS > OR=TO 60 MG/DL ARE CONSIDERED A NEGATIVE RISK FACTOR. 112 INTERPRETATION OF CHOL-HDL RATIO CHD RISK FEMALE MALE VERY HIGH >8.3 >14.3 HIGH 5.6- 8.3 6.7- 14.3 AVERAGE 3.7- 5.6 4.0- 6.7 BELOW AVERAGE 2.5- 3.7 2.7- 4.0 PROTECTED <2.5 <2.7 113 PER NCEP ATP III GUIDELINES: OPTIMAL < 100 NEAR OPTIMAL 100 - 129 BORDERLINE HIGH 130 - 159 HIGH 160 - 189 VERY HIGH > 189 114 AUTOMATED DIFFERENTIAL 115 Cholesterol Risk Levels (NIH) Recommended: under 200 mg/dl Borderline : 200-239 mg/dl High Risk : Above 240 mg/dl . 116 Abnormal Flag='AB' Triglyceride Risk Levels: Normal : <150 mg/dl Borderline : 150-199 mg/dl High : 200-499 mg/dl Very High : >500 mg/dl . 117 Abnormal Flag='AB' The National Cholesterol Education Program recommends the following ranges for LDL Cholesterol: Optimal under 100 mg/dl Near or above Optimal 100 - 129 mg/dl Borderline High 130 - 159 mg/dl High 160 - 189 mg/dl Very High above 190 mg/dl . 118 LDL/HDL Risk Ratio Levels MALE FEMALE 1/2 X Average 1.00 1.47 Average 3.55 3.22 2 X Average 6.25 5.03 3 X Average 7.99 6.14 . 119 Abnormal Flag='AB' CHOL/HDL Risk Ratio Levels MALE FEMALE 1/2 X Average 3.4 3.3 Average 5.0 4.4 2 X Average 9.5 7.0 3 X Average 24.0 11.0 . 120 Abnormal Flag='AB' mL/min/1.73m2 . Normal Function or Mild Renal Disease, if clinically at risk: >or=60 Moderately decreased: 30 - 59 Severely decreased: 15 - 29 Renal Failure: <15 . Please note that the MDRD equation requires an additional adjustment for -Americans (multiply the GFR result by 1.210). . Glomerular Filtration Rate (GFR) is estimated based on the MDRD equation, which assumes a steady state for creatinine (Paz Int Med 139/2 137-149, 2003), as recommended by the National Kidney Disease Education Program in conjunction with the National Institutes of Health and the National Kidney Foundation. . Clinical conditions in which it may be necessary to measure GFR by using clearance methods include extremes of age and body size, severe malnutrition or obesity, diseases of skeletal muscle, paraplegia or quadriplegia, vegetarian diet, rapidly changing kidney function, and calculation of the dose of potentially toxic drugs that are excreted by the kidneys. . Procedures Date CPT Code Description Status 05/09/2017 20796 ECHO Transthoracis 2D W Spectral Doppler Completed 08/23/2016 59375 Measure Blood Oxygen Level Single Determination Completed 11/17/2009 88653 Admin Of Inj (Therapeutic Phrophylactic Or Diagnostic Completed Subq Inj 05/03/2002 53959 Electrocardiogram Complete Completed 08/04/2001 67545 Airway Inhalation Treatment Completed 03/02/2001 71990 Measure Blood Oxygen Level Single Determination Completed 03/02/2001 66506 Airway Inhalation Treatment Completed 11/27/2000 41828 Electrocardiogram Complete Completed Encounters Type Date Location Provider CPT E/M Dx Office Visit 11/26/2017 8:20a Regi Manuel RN [facility] 20156 M25.569 R11.10 E78.2 I10 Office Visit 09/22/2017 2:20[place] [address] J15.9 N18.4 I10 J45.41 F17.211 Office Visit 07/24/2017 10:00a Regi Manuel RN [facility] 52260 I10 D64.9 R51 N18.4 Office Visit 05/23/2017 10:40a Regi Manuel RN [facility] 05886 G45.9 E66.01 D64.9 R51 M79.604 M79.605 F41.1 Office Visit 04/23/2017 10:40a Regi Manuel RN [facility] 64739 E66.01 M79.1 R11.2 E21.2 D64.9 P96.0 R00.2 G45.9 Office Visit 03/03/2017 10:20[place] [address] J01.10 J45.41 E55.9 F17.211 Office Visit 01/02/2017 1:00p Regi Manuel RN [facility] 36747 E55.9 J06.9 J02.9 Office Visit 11/08/2016 9:00a Regi Manuel RN [facility] 57503 Z00.00 J45.40 N18.4 G25.81 F41.1 E78.2 I10 M62.89 D50.9 E55.9 F33.9 R10.11 Office Visit 10/15/2016 1:00p [place] [address] J45.40 F17.210 R06.02 Office Visit 09/11/2016 3:20[place] [address] J45.40 F17.210 Office Visit 08/28/2016 3:30p Regi Manuel RN [facility] 71439 R10.11 Office Visit 08/23/2016 1:40p Regi Manuel RN [facility] 79707 R06.02 Office Visit 08/08/2016 1:20p Regi Manuel RN [facility] 70055 R10.11 N18.4 G25.81 F41.1 E78.2 I10 J45.998 J45.40 Office Visit 05/15/2016 2:40[place] [address] N18.4 N95.1 F33.9 E78.2 Office Visit 03/07/2016 11:20[place] [address] M54.31 Office Visit 11/23/2015 8:00a Regi Manuel RN [facility] 19701 F41.1 F33.0 I10 J20.9 G25.81 D50.9 Office Visit 10/13/2015 3:20p Regi Manuel RN [facility] 92985 R31.9 Office Visit 10/09/2015 8:40[place] [address] R51 Office Visit 09/07/2015 8:00a Regi Manuel RN [facility] 60845 F33.0 F41.1 I10 Office Visit 08/24/2015 11:40a Regi Manuel RN [facility] 00416 F33.0 F41.1 Office Visit 06/23/2015 3:00p Regi Manuel RN [facility] 48361 401.1 Office Visit 05/23/2015 10:00[place] [address] 724.3 724.2 401.1 281.1 280.9 272.2 Office Visit 02/15/2015 10:20a Regi Manuel RN [facility] 55317 401.1 272.2 327.23 386.11 704.00 Office Visit 06/01/2014 8:40a Regi Manuel RN [facility] 99929 401.1 278.01 272.2 346.00 588.9 493.00 719.47 789.06 Office Visit 10/14/2013 9:00a Regi Manuel RN [facility] 26308 V70.0 278.01 272.2 401.1 281.9 959.5 784.0 Office Visit 09/28/2013 12:20[place] [address] 461.0 493.00 Office Visit 02/10/2013 8:00a Regi Manuel RN [facility] 42772 388.70 380.4 386.11 278.01 272.2 588.9 Office Visit 01/20/2013 10:40a Regi Manuel RN [facility] 10910 388.70 381.4 Office Visit 01/14/2013 8:20a Regi Manuel, HANSEL [facility] 94643 401.1 272.2 278.01 305.1 724.5 588.9 Office Visit 12/22/2012 9:00a Regi Manuel RN [facility] 07418 386.11 780.4 305.1 Office Visit 2012 2:30[place] [address] 780.4 588.9 Office Visit 10/15/2012 8:00a Regi Manuel RN [facility] 03095 585.3 278.01 790.21 401.1 272.2 493.00 729.5 Office Visit 04/16/2012 9:20a Regi Manuel RN [facility] 37834 695.3 729.5 530.81 307.42 401.1 Office Visit 03/03/2012 1:00p Regi Manuel RN [facility] 28570 782.1 695.3 729.5 Office Visit 01/14/2012 11:00a Regi Manuel RN [facility] 55228 V70.0 585.3 305.1 278.01 914.0 784.0 V74.1 307.42 V06.1 V04.89 Office Visit 09/30/2011 4:45p [place] [address] 466.0 493.00 530.11 Office Visit 09/06/2011 9:40a Regi Manuel RN [facility] 08267 305.1 585.3 790.21 Office Visit 12/20/2010 10:40a Regi Manuel, HANSEL [facility] 19940 369.8 053.9 333.94 Office Visit 10/24/2010 10:15a Regi Manuel RN [facility] 10539 465.9 Office Visit 2009 11:00a Regi Manuel RN [facility] 54000 599.70 465.9 Office Visit 11/16/2009 9:30a Regi Manuel RN [facility] 32270 788.43 V70.0 333.94 724.3 V17.49 V41.1 Office Visit 08/09/2009 1:00p Regi Manuel RN [facility] 18779 461.0 466.0 Office Visit 05/26/2009 1:50[place] [address] 782.1 Office Visit 02/21/2009 10:15a Regi Manuel RN [facility] 52506 476.0 305.1 Office Visit 11/07/2008 9:00a Regi Manuel RN [facility] 39981 787.20 305.1 Office Visit 10/31/2008 4:15p [place] [address] 462 305.1 Office Visit 10/06/2008 9:00a Regi Manuel RN [facility] 25387 401.1 272.2 493.00 381.81 625.3 Office Visit 02/24/2008 9:15a Regi Manuel RN [facility] 28414 401.1 327.52 381.81 Office Visit 09/08/2007 9:00a Regi Manuel, HANSEL [facility] 63037 558.9 386.11 Office Visit 03/25/2007 11:15a Regi Manuel RN [facility] 76515 V70.0 381.81 493.10 401.1 305.1 Office Visit 02/09/2007 1:45p Regi Manuel RN [facility] 73903 464.20 305.1 Office Visit 02/04/2007 9:15a Regi Manuel, HANSEL [facility] 81942 476.0 305.1 307.42 Office Visit 01/23/2007 10:45a [place] [address] 462 Office Visit 10/07/2006 2:45p Regi Manuel RN [facility] 40537 465.9 305.1 V04.81 Office Visit 07/29/2006 3:00p Regi Manuel, HANSEL [facility] 67022 401.1 530.81 493.00 305.1 719.42 Office Visit 04/28/2006 12:45p [place] [address] 466.0 493.00 Office Visit 02/18/2006 8:40a Regi Manuel RN [facility] 22722 466.0 786.2 Office Visit 02/12/2006 8:00a Regi Manuel RN [facility] 93106 466.0 786.2 Office Visit 03/20/2005 6:20[place] [address] 401.1 493.00 530.81 Office Visit 01/09/2005 6:50p [place] [address] 493.00 401.1 Office Visit 12/12/2004 5:40[place] [address] 401.1 530.11 692.9 Office Visit 11/14/2004 5:20[place] [address] 401.1 493.00 278.00 V74.1 Office Visit 10/03/2004 5:20[place] [address] 401.1 493.00 V04.81 Office Visit 08/29/2004 5:00[place] [address] 401.1 461.0 Office Visit 08/01/2004 4:40[place] [address] 401.9 530.81 Office Visit 04/18/2004 4:10p [place] [address] 401.1 493.00 278.00 Office Visit 03/14/2004 5:30[place] [address] 401.1 493.00 Office Visit 02/15/2004 6:10p [place] [address] 401.1 493.00 530.81 Office Visit 01/25/2004 10:40a [facility] 11050 462 Office Visit 01/11/2004 6:40[place] [address] 493.00 784.0 401.1 Office Visit 11/16/2003 6:50[place] [address] 401.1 789.00 530.81 Office Visit 09/21/2003 4:40[place] [address] 401.1 784.0 Office Visit 08/22/2003 4:10p [place] [address] 789.06 578.1 Office Visit 07/20/2003 4:50p [place] [address] 493.00 401.1 789.06 Office Visit 06/22/2003 4:40[place] [address] 493.00 401.1 Office Visit 05/25/2003 3:50p [place] [address] 493.00 401.1 278.00 Office Visit 04/04/2003 10:20a [facility] 00982 493.00 462 Office Visit 02/23/2003 4:30[place] [address] 401.1 493.00 724.2 Office Visit 11/24/2002 4:10p [place] [address] 401.1 Office Visit 11/02/2002 10:40a Regi Manuel, HANSEL [facility] 14266 462 465.9 Office Visit 09/24/2002 1:30p Regi Manuel, HANSEL [facility] 01876 401.1 Office Visit 06/22/2002 10:30a Regi Manuel RN [facility] 75569 784.0 Office Visit 05/12/2002 10:00a Regi Manuel, HANSEL [facility] 02742 785.1 782.0 346.90 Office Visit 05/03/2002 1:50p Regi Manuel, HANSEL [facility] 97671 401.1 785.1 784.0 782.0 Office Visit 12/11/2001 11:50[place] [address] Office Visit 10/20/2001 10:40[place] [address] Office Visit 10/06/2001 2:10p [place] [address] Office Visit 08/04/2001 9:50[place] [address] Office Visit 05/08/2001 2:10p Pia Bellamy M.D. 44100 Office Visit 04/27/2001 9:20[place] [address] Office Visit 04/01/2001 9:00a Desi Ortiz RN [facility] 50016 Office Visit 03/25/2001 3:20p Pia Bellamy M.D. 40166 Office Visit 03/04/2001 10:50a Desi Ortiz RN [facility] 02862 Office Visit 03/02/2001 9:30a Desi Ortiz RN [facility] 78294 Office Visit 01/21/2001 4:50p [place] [address] Office Visit 11/27/2000 11:50[place] [address] Office Visit 09/03/2000 5:40[place] [address] 786.52 Plan of Care Future Appointment(s):02/09/2018 8:00 am - Prashanth Davidson PA at [id number] - Prashanth Davidson PAJ06.9 Acute upper respiratory infection, unspecifiedNew Medication:Oseltamivir Phosphate 75 mgComments:will send in Tamiflu. treat s/s prn. will send Tamiflu with sounds like flu and ~75% sensitivity with office testing.J02.9 Acute pharyngitis, [id number] Other fatigue
--- OUTSIDE RECORDS SUMMARY | 2017-12-22 12:47 | XMS REPORT ---
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 Primary Care Physician Unavailable Payers Type Date Identification Numbers Payment Provider Subscriber Commercial Policy Number: [id number] Matt Brantley Group Number: [id number] [address] PayID: [id number] [place] [address] Problems Date Description Provider Status Onset: 10/31/2015 Migraine with typical aura Carly Goodrich MD Active Onset: 01/31/2016 Alopecia Carly Goodrich MD Active Onset: 06/13/2017 History of cerebrovascular accident without Carly Goodrich MD Active residual deficits Onset: 06/13/2017 Headache Carly Goodrich MD Active Onset: 06/13/2017 Muscle pain Carly Goodrich MD Active Onset: 07/11/2017 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 Goodrich MD Active artery with infarction Onset: 11/28/2017 Abnormal results function studies of central Carly Goodrich MD Active nervous system Family History Date Family Member(s) Problem(s) Comments General Fibromyalgia General Rheumatoid Arthritis General Gout Father Polycystic Kidney Disease Mother Chronic Obstructive Pulmonary Disease (COPD) First Son Polycystic Kidney Disease First Sister Migraine Social History Type Date Description Comments ETOH Use Rarely consumes alcohol Smoking Patient is a former smoker quit in 2013 Exercise Type/Frequency Exercises rarely Allergies, Adverse Reactions, Alerts Date Description Reaction Status Severity Comments 10/31/2015 NKDA active Medications Medication Date Status Form Strength Qnty SIG Indications Ordering Provider Topiramate 11/28/ Active Tablets 25mg 60tab 1 tablet R51 Carly 2017 s at night MD Kp x2 weeks then if needed increase to 2 tablets at night Lidocaine HCL 09/05/ Active Cream 3% 85gm apply M54.2 2016 twice a Lisette, day as M.DLeonora needed to painful areas. B12 Fast 08/31/ Active Tablets 5000mcg 90tab sl daily Shakeel Dissolve 2016 Dispers s [place] Nortriptyline 10/31/ Active Capsules 25mg 60cap take 1 G43.109 Carly HCL 2014 s capsules MD Kp at night Calcitriol / Active Capsules 0.25mcg 1 by mouth Unknown 0000 every day Montelukast / Active Tablets 10mg 1 by mouth Unknown Sodium 0000 every day Lisinopril / Active Tablets 30mg 1 by mouth Unknown 0000 every day Omeprazole / Active Capsules DR 40mg 1 by mouth Unknown 0000 every day Escitalopram / Active Tablets 10mg 1 by mouth Unknown Oxalate 0000 every day Hydroxyzine HCL / Active Tablets 10mg every 8h Unknown 0000 as needed Ventolin HFA / Active Aerosol 108(90Base 2 puffs by Unknown 0000 ) mcg/Act mouth four times a day as needed Ipratropium / Active Solution 0.02% as needed Unknown [place] 0000 Albuterol / Active Nebulizer (2.5mg/3ML as needed Unknown Sulfate 0000 ) 0.083% Percocet / Active Tablets 5-325mg as needed Unknown 0000 pain Furosemide / Active Tablets 20mg 1 by mouth Unknown 0000 in the morning Baclofen / Active Tablets 10mg take 1/2 Unknown 0000 tab every 8 hours as needed for muscle spasm Meclizine HCL / Active Chewtabs 25mg 1 tab Unknown 0000 every 8 hours as needed for dizziness Vitamin D / Active Capsules 1000Unit 2 by mouth Unknown (Cholecalcifero 0000 every day l) Flintstones / Active Chewtabs 1 tab po Unknown Plus Iron 0000 qd Cetirizine HCL / Active Chewtabs 10mg 1 tab po Unknown 0000 Advair Diskus / Active Aerosol 250-50mcg/ 1 puff by Unknown 0000 Dose mouth twice a day Cartia XT / Active Caps ER 240mg 1 by mouth Unknown 0000 24HR every day Magnesium Oxide / Active Capsules 400mg 1 by mouth Unknown -MG Supplement 0000 every day Aspirin Ec 00/ Active Tablets DR 81mg 1 by mouth Unknown 0000 daily Simvastatin 0000/ Active Tablets 20mg 1 tablet Unknown 0000 by mouth daily Aspercreme 08/29/ Hx Cream 4% 6unit apply M54.2 Shakeel Quintero/Lidocaine 2017 - s twice Lisette, 09/05/ daily to M.D. 2017 the painful joints as needed Lidoderm 08/25/ Hx Patches 5% 30uni 1 apply to M54.2 Shakeel 2017 - ts affected Lisette, 08/29/ area 12 M.D. 2017 hours on, 12 hours off Simvastatin / Hx Tablets 20mg 1 by mouth Unknown 0000 - every day 2016 Labetalol HCL / Hx Tablets 200mg by mouth Unknown 0000 - twice a 2016 Nortriptyline / Hx Capsules 25mg 1 by mouth Unknown HCL 0000 - every 10/31/ night at 2014 bedtime Vital Signs Date Vital Result Comment 11/28/2017 Height 67 inches 5'7" Weight 239.38 lb Heart Rate 70 /min BP Systolic 126 mmHg BP Diastolic 80 mmHg Respiratory Rate 14 /min BMI (Body Mass Index) 37.5 kg/m2 09/29/2017 Height 67 inches 5'7" Weight 240.00 lb Heart Rate 78 /min BP Systolic Sitting 140 mmHg BP Diastolic Sitting 91 mmHg Respiratory Rate 14 /min Pain Level 9 BMI (Body Mass Index) 37.6 kg/m2 08/25/2017 Height 67 inches 5'7" Weight 236.12 lb Heart Rate 81 /min BP Systolic Sitting 163 mmHg BP Diastolic Sitting 103 mmHg Respiratory Rate 14 /min Pain Level 8 BMI (Body Mass Index) 37.0 kg/m2 08/04/2017 Height 67 inches 5'7" Weight 241.50 lb Heart Rate 76 /min BP Systolic 122 mmHg BP Diastolic 88 mmHg BMI (Body Mass Index) 37.8 kg/m2 07/11/2017 Height 67 inches 5'7" Weight 238.00 lb Heart Rate 80 /min BP Systolic 136 mmHg BP Diastolic 94 mmHg BMI (Body Mass Index) 37.3 kg/m2 06/13/2017 Height 67 inches 5'7" Weight 227.00 lb Heart Rate 77 /min BP Systolic Sitting 130 mmHg BP Diastolic Sitting 80 mmHg Respiratory Rate 17 /min BMI (Body Mass Index) 35.5 kg/m2 01/31/2016 Height 67 inches 5'7" Weight 238.00 lb Heart Rate 62 /min BP Systolic Sitting 150 mmHg BP Diastolic Sitting 90 mmHg Respiratory Rate 17 /min BMI (Body Mass Index) 37.3 kg/m2 10/31/2015 Height 67 inches 5'7" Weight 238.00 lb Heart Rate 72 /min BP Systolic Sitting 136 mmHg BP Diastolic Sitting 84 mmHg Respiratory Rate 16 /min BMI (Body Mass Index) 37.3 kg/m2 Results Test Date Test Result H/L Range Note Vitamin D 1,25 And 08/25/2017 Vitamin D Total 25(Oh) 49.1 ng/mL 20-50 Vitamin D,2 Vitamin D, 1,25 Dihydroxy 28 pg/mL 18-78 1 Hla B27 08/25/2017 Hla B27 Negative 2 Hla B27 Interp See Comment 3 Laboratory test finding 08/25/2017 Rheumatoid Factor <15 IU/mL <15 4 Laboratory test finding 08/25/2017 Creatine Kinase(CK) 41 U/L 10-223 T3 Free 3.10 pg/mL 2.5-3.9 Thyroperoxidase AB 0.66 IU/mL <9 Vitamin B12 And Folate Serum 08/25/2017 Vitamin B12 352 pg/mL 180-914 5 Folic Acid (Folate) > 20.00 ng/mL >3.99 Ssa/SSB Abs Igg 08/25/2017 SS-A/Ro Antibody <0.2 U 6 SS-B/La Antibody <0.2 U 7 Protein Electrophoresis 08/25/2017 Total Protein(Pep) 7.0 g/dL 6.3 - 7.9 Albumin 3.7 g/dL 3.4-4.7 Alpha-1 Globulin 0.2 g/dL 0.1-0.3 Alpha-2 Globulin 0.9 g/dL 0.6-1.0 Beta Globulin 1.1 g/dL 0.7-1.2 Gamma Globulin 1.1 g/dL 0.6-1.6 Albumin/Globulin Ratio 1.15 Impression See Comment 8 Laboratory test 08/25/2017 Aso (Antistreptolysin O) Negative IU/mL < 200 Iu/mL 9 finding Titer Angiotensin Converting Enzyme <5 U/L 8 - 53 10 Babesiosis Evaluation <1:64 titer <1:64 11 Proteinase 3 0.5 U 12 Laboratory test finding 08/04/2017 Vitamin D Total 25(Oh) 40.6 ng/mL 20- 50 Laboratory test finding 08/04/2017 Phosphorus 4.4 mg/dL 2.5-5.0 Magnesium 1.7 mg/dL Low 1.9-2.7 Comp Metabolic Panel 08/04/2017 Sodium 137 mmol/L 133-145 Chloride 106 mmol/L 101-111 Co2 Carbon Dioxide 26 mmol/L 22-32 Glucose 96 mg/dL 70-100 Blood Urea Nitrogen 37 mg/dL High 6-24 Creatinine 4.06 mg/dL High 0.51-0.95 One Over Creatinine 0.24 mg/dL Low 0.51-0.95 BUN/Creatinine Ratio 9.1 8-20 Calcium 9.3 mg/dL 8.6-10.3 Total Protein 6.7 g/dL 6.4-8.9 Albumin 4.1 g/dL 3.2-5.2 Globulin 2.6 g/dL 2-4 Albumin/Globulin Ratio 1.6 1-3 Total Bilirubin 0.60 mg/dL 0.2-1.0 Alkaline Phosphatase 45 U/L 34-104 Alt 8 U/L 7-52 Ast 15 U/L 13-39 Egfr Non- 12.1 >60 Egfr 15.6 >60 13 Potassium 5.3 mmol/L High 3.5-5.0 Anion Gap 5 mmol/L 2-11 Cardiolipin Igg/Igm 07/11/2017 Phospholipid Ab IgM, S < 9.4 MPL 14 Phospholipid Ab IgG < 9.4 GPL 15 Lupus Anticoagulant AB 07/11/2017 Prothrombin Time(Lac) 10.1 sec 16 Lac Inr 0.9 Lac Aptt 32 sec 26 - 36 Lac DRVVT Screen Ratio 1.0 ratio 0.0 - 1.1 Lupus Anticoagulant Interpreta See Comment 17 Factor 5 Leiden Mutation 07/11/2017 Factor V Leiden Mutation Negative Negative Factor V Leiden Interpretation See Comment 18 Factor V Leiden Reviewed By See Comment 19 Factor II (Prothrombin) 07/11/2017 Prothrombin 81434 Negative Negative Genoty Mutation Prothrombin [id number] Interp See Comment 20 Prothrombin Mutation Review By See Comment 21 Anca AB Ser If 07/11/2017 C-Anca Negative Negative P-Anca Negative Negative 22 Laboratory test finding 07/11/2017 Protein S Activity 147 % 50 - 160 23 Protein C Activity 114 % 70 - 150 24 Anti Thrombin III Activity 94 % 80 - 130 25 Anca Panel For Vasculitis 07/11/2017 Myeloperoxidase AB < 0.2 U 26 Proteinase 3 AB 1.0 U High 27 Connective Tissue Panel 06/23/2017 Anti-Nuclear Antibody 0.3 U 28 Cyclic Citrullinated Peptide <15.6 U 29 Interpretation See Comment 30 Laboratory test finding 06/23/2017 Lyme Disease Serology Negative Negative 31 Liver Function Panel 06/13/2017 Direct Bilirubin 0.10 mg/dL 0.03-0.18 Indirect Bilirubin 0.5 mg/dL 0.3-1.0 Laboratory test finding 06/13/2017 Uric Acid 8.7 mg/dL High 2.3-6.6 Phosphorus 4.1 mg/dL 2.5-5.0 Magnesium 1.3 mg/dL Low 1.9-2.7 Iron & Iron Binding Capacity 06/13/2017 Iron 66 g/dL 50-212 Unsaturated Iron Binding 255 g/dL Total Iron Binding Capacity 321 g/dL 250-450 % Iron Saturation 21 % 15-55 Laboratory test finding 06/13/2017 Ferritin 38.8 ng/mL 11-307 Urinalysis Profile 06/13/2017 Urine Color Straw Urine Appearance Clear Urine Specific [place] 1.006 Low 1.010-1.030 Urine pH 5.0 5-9 Urine Urobilinogen Negative Negative Urine Ketones Negative Negative Urine Protein 1+(30 mg/dL) Negative Urine Leukocytes Trace Negative Urine Blood Negative Negative Urine Nitrite Negative Negative Urine Bilirubin Negative Negative Urine Glucose Negative Negative Urine White Blood Cell Trace(0-5/hpf) Absent Urine Red Blood Cell Trace(0-2/hpf) Absent Urine Bacteria Absent Absent Urine Squamous Epithelial Cell Present Absent Laboratory test finding 06/13/2017 Erythrocyte Sed Rate 8 mm/Hr 0-14 Total Protein 24HR Urine 06/13/2017 Urine Collection Time 24 Urine Total Volume 2500 mL Urine Random Total Protein 39 mg/dL Urine Total Protein/24HR 975 mg/24Hr High 0-165 Laboratory test finding 06/13/2017 Creatine Kinase(CK) 34 U/L 10-223 C Reactive Protein 3.39 mg/L < 5.00 32 Urine Culture And Sensitivities 06/13/2017 Urine Culture SEE RESULT BELOW 33 Lipid Profile (Trig/Chol/HDL) 06/13/2017 Triglycerides 187 mg/dL 34 Cholesterol 217 mg/dL 35 HDL Cholesterol 33.7 mg/dL 36 LDL Cholesterol 146 mg/dL 37 Comp Metabolic Panel 06/13/2017 Sodium 138 mmol/L 133-145 Potassium 4.9 mmol/L 3.5-5.0 Chloride 108 mmol/L 101-111 Co2 Carbon Dioxide 25 mmol/L 22-32 Anion Gap 5 mmol/L 2-11 Glucose 83 mg/dL 70-100 Blood Urea Nitrogen 27 mg/dL High 6-24 Creatinine 2.78 mg/dL High 0.51-0.95 38 BUN/Creatinine Ratio 9.7 8-20 Calcium 9.1 mg/dL 8.6-10.3 Total Protein 6.2 g/dL Low 6.4-8.9 Albumin 4.0 g/dL 3.2-5.2 Globulin 2.2 g/dL 2-4 Albumin/Globulin Ratio 1.8 1-3 Total Bilirubin 0.60 mg/dL 0.2-1.0 Alkaline Phosphatase 44 U/L 34-104 Alt 9 U/L 7-52 Ast 14 U/L 13-39 Egfr Non- 18.8 >60 Egfr 24.1 >60 39 One Over Creatinine 0.30 mg/dL Low 0.51-0.95 Pthi 06/13/2017 Calcium (PTH Intact) 9.1 mg/dL 8.6-10.3 PTH Intact 7.8 pmol/L 1.3-9.3 Creatinine Clearance 06/13/2017 Creatinine 2.77 mg/dL High 0.51-0.95 Urine Collection Time 24 Urine Total Volume 2500 mL Urine Random Creatinine 57.94 mg/dL Creatinine Clearance 36 mL/min Low 88-128 Laboratory test finding 06/13/2017 Myoglobin 49.7 ng/mL 14.3-65.8 CBC Auto Diff 06/13/2017 White Blood Count 7.7 10^3/uL 3.5-10.8 Red Blood Count 4.81 10^6/uL 4.0-5.4 Hemoglobin 15.1 g/dL 12.0-16.0 Hematocrit 45 % 35-47 Mean Corpuscular Volume 94 fL 80-97 Mean Corpuscular Hemoglobin 31 pg 27-31 Mean Corpuscular HGB Conc 33 g/dL 31-36 Red Cell Distribution Width 13 % 10.5-15 Platelet Count 112 10^3/uL Low 150-450 Mean Platelet Volume 10 um3 7.4-10.4 Abs Neutrophils 5.4 10^3/uL 1.5-7.7 Abs Lymphocytes 1.3 10^3/uL 1.0-4.8 Abs Monocytes 0.7 10^3/uL 0-0.8 Abs Eosinophils 0.2 10^3/uL 0-0.6 Abs Basophils 0 10^3/uL 0-0.2 Abs Nucleated RBC 0 10^3/uL Granulocyte % 69.9 % 38-83 Lymphocyte % 17.2 % Low 25-47 Monocyte % 9.3 % High 1-9 Eosinophil % 3.0 % 0-6 Basophil % 0.6 % 0-2 Nucleated Red Blood Cells % 0.1 Laboratory test finding 01/31/2016 TSH (Thyroid Stim Horm) 4.63 ?IU/mL 0.34-5.60 Free T4 (Free Thyroxine) 0.81 ng/dL 0.61-1.12 1 ADDITIONAL INFORMATION This test was developed and its performance characteristics determined by [facility] in a manner consistent with CLIA requirements. This test has not been cleared or approved by the U.S. Food and Drug Administration. Test Performed by: [facility] [email or web address] [facility] [address] [place] [address] 2 REFERENCE VALUE Not Applicable 3 RESULT: HLA-B27 antigen was not detected. ADDITIONAL INFORMATION Method: Flow Cytometry Performing Laboratory CLIA# [id number] Test Performed by: [facility] [place] [address] [place] [address] 4 Test Performed by: [facility] [address] [address] 5 Normal Range 180 to 914 Indeterminate Range 145 to 180 Deficient Range <145 6 REFERENCE VALUE <1.0 (Negative) 7 REFERENCE VALUE <1.0 (Negative) Test Performed by: [facility] [place] [address] 8 RESULT: No apparent monoclonal protein on serum electrophoresis. Test Performed by: [address] [address] 9 Normal values may vary with age, season and geographic area. Titers above upper limits may be indicative of infection, however only a two dilution rise in titer is required to be considered significant. ASO titer will usually rise above upper limits within one week of exposure, increase to peak levels at 3-5 weeks and return to baseline level at 6-12 twelve months. 10 Test Performed by: [facility] - [address] [address] 11 ADDITIONAL INFORMATION This test was developed using an analyte specific reagent. Its performance characteristics were determined by [facility] in a manner consistent with CLIA requirements. This test has not been cleared or approved by the U.S. Food and Drug Administration. Test Performed by: [facility] - [facility] [address] [place] [address] 12 Interpretation: Equivocal (0.4-0.9) REFERENCE VALUE <0.4 (Negative) Test Performed by: [address] [address] 13 Because ethnic data is not always readily available, this report includes an eGFR for both -Americans and non- Americans. The National Kidney Disease Education Program (NKDEP) does not endorse the use of the MDRD equation for patients that are not between the ages of 18 and 70, are , have extremes of body size, muscle mass, or nutritional status, or are non- or non-. According to the National Kidney Foundation, irrespective of diagnosis, the stage of the disease is based on the level of kidney function: Stage Description GFR(mL/min/1.73 m(2)) 1 Kidney damage with normal or decreased GFR 90 2 Kidney damage with mild decrease in GFR 60-89 3 Moderate decrease in GFR 30-59 4 Severe decrease in GFR 15-29 5 Kidney failure <15 (or dialysis) 14 REFERENCE VALUE <15.0 (Negative) 15 REFERENCE VALUE <15.0 (Negative) Test Performed by: [address] [address] 16 REFERENCE VALUE 10.3 - 12.8 17 No evidence of a lupus-like anticoagulant based on results of Prothrombin Time (PT), Activated Partial Thromboplastin Time (APTT), and Dilute Russ[place] Viper Venom Time (DRVVT). Interpretation not reviewed by physician. Test Performed by: [address] [address] 18 This individual DOES NOT have the factor V Leiden (R506Q) mutation. Although the factor V Leiden mutation is absent, the individual may have other genetic and environmental risk factors for thrombosis. Consider genetic consultation and counseling of potentially affected family members regarding laboratory testing. ADDITIONAL INFORMATION This test is a direct mutation analysis using PCR amplification, signal generation and release by cleavage of sequence specific alleles ([employer], [employer], [place], [place]). This test has been modified from the chronic specialist's instructions. Its performance characteristics were determined by [facility] in a manner consistent with CLIA requirements. This test has not been cleared or approved by the U.S. Food and Drug Administration. 19 RESULT: DULCE Clark Test Performed by: [facility] - [address] [address] This individual DOES NOT have the Prothrombin [id number] mutation. Although the Prothrombin [id number] mutation is absent, the individual may have other genetic and environmental risk factors for thrombosis. If clinically indicated, suggest Coagulation Consultation 33988 (Thrombophilia Profile) to complete the evaluation for an inherited or acquired thrombosing disorder (i.e., thrombophilia). Consider genetic consultation and counseling of potentially affected family members regarding laboratory testing. ADDITIONAL INFORMATION This test is a direct mutation analysis using PCR amplification, signal generation and release by cleavage of sequence specific alleles ([employer], [employer], [place], [place]). This test has been modified from the chronic specialist's instructions. Its performance characteristics were determined by [facility] in a manner consistent with CLIA requirements. This test has not been cleared or approved by the U.S. Food and Drug Administration. 21 RESULT: DULCE Clark Test Performed by: [facility] - [address] [address] 22 Borderline positive for anti-PR3 antibody by solid-phase immunoassay. Neither cANCA nor pANCA patterns identified by immunofluorescence using ethanol-fixed neutrophils. In addition, immunofluorescent testing using PR3 transfected cells was negative. Results do not appear to be consistent with ANCA-associated vasculitis. Unable to provide further interpretation without clinical information. Correlation with clinical presentation recommended. ADDITIONAL INFORMATION This test was developed and its performance characteristics determined by [facility] in a manner consistent with CLIA requirements. This test has not been cleared or approved by the U.S. Food and Drug Administration. Test Performed by: [address] [address] 23 Anticoagulants (for example oral direct thrombin inhibitors like dabigatran, anti-Xa inhibitors like rivaroxaban, apixaban or edoxaban), heparin levels greater than 1 U/mL, inhibitors of the APTT test system (for example lupus anticoagulant), inhibitors of bovine factor V (for example antibodies that may arise in patients treated with certain bovine topical thrombin preparations) may produce a falsely normal or elevated protein S activity result. Suggest clinical correlation and if indicated consider repeat assay of protein S activity and/or antigen in the absence of anticoagulation therapy. ADDITIONAL INFORMATION This test has been modified from the chronic specialist's instructions. Its performance characteristics were determined by [facility] in a manner consistent with CLIA requirements. This test has not been cleared or approved by the U.S. Food and Drug Administration. Test Performed by: [facility] - [address] [address] ADDITIONAL INFORMATION This test has been modified from the chronic specialist's instructions. Its performance characteristics were determined by [facility] in a manner consistent with CLIA requirements. This test has not been cleared or approved by the U.S. Food and Drug Administration. Test Performed by: [address] [address] 25 Direct factor Xa inhibitor therapy (rivaroxaban (Xarelto), apixaban (Eliquis), edoxaban (Savaysa)) may interfere with the functional Xa based AT assay and cause an overestimation of AT activity thus potentially masking diagnosis of AT deficiency. Suggest clinical correlation and consider repeat AT testing remote from direct factor Xa inhibitor therapy, if clinically indicated. ADDITIONAL INFORMATION This test has been modified from the chronic specialist's instructions. Its performance characteristics were determined by [facility] in a manner consistent with CLIA requirements. This test has not been cleared or approved by the U.S. Food and Drug Administration. Test Performed by: [facility] - [address] [address] 26 REFERENCE VALUE <0.4 (Negative) 27 Interpretation: Positive (>=1.0) REFERENCE VALUE <0.4 (Negative) Test Performed by: [facility] - [address] [address] 28 REFERENCE VALUE <=1.0 (Negative) 29 REFERENCE VALUE <20.0 (Negative) 30 Tests for antibodies to dsDNA and RAMONA antigens are not performed automatically unless the SIN result is > or= 3.0 U. Studies performed at [facility] indicate that positive SIN results <3.0 U are rarely accompanied by positive second order tests. Test Performed by: [address] [address] 31 Serologic response to B. burgdorferi infection is not detected, but cannot rule out early infection during which low or undetectable antibody levels to B. burgdorferi may be present. If clinically indicated, a new serum specimen should be submitted in 7-14 days. Test Performed by: [address] [address] 32 Acute inflammation: >10.00 33 SEE RESULT BELOW Name: BUFFY BRANTLEY : [address]: Shakeel Gonzalez MD Acct: [id number] Unit: [id number] AGE: 41 Location: LAB Re06/13/17 SEX: F Status: REG REF SPEC: [id number] ES: 06/13/17-1010 [facility] DR: Shakeel Gonzalez MD REQ: [id number] RECD: 06/13/17 STATUS: PATRICK JOHNSON DR: Regi Goodrich MD _ SOURCE: URINE SPDESC: ORDERED: Urine Culture QUERIES: Urine Source: Clean Catch Procedure Result Reported Site Urine Culture Final 06/14/17- 09 ML No growth of clinically significant organisms * ML - MAIN LAB (PSC1) . END OF REPORT * ML=Testing performed at Main Lab DEPARTMENT OF PATHOLOGY, [address] [place] [address] Graham Ambrocio M.D. Director [facility] # [id number] 34 Desirable <150 Borderline high 150-199 High 200-499 Very High >500 35 Desirable <200 Borderline high 200-239 High >239 36 Low <40 Desirable: 40-60 High: >60 37 Desirable: <100 mg/dL Near Optimal: 100-129 mg/dL Borderline High: 130-159 mg/dL High: 160-189 mg/dL Very High: >189 mg/dL 38 --- 06/13/17 1342 --- Creatinine previously reported as: 2.78 H mg/dL --- 06/13/17 1342 --- Creatinine previously reported as: mg/dL --- 06/13/17 1342 --- Creatinine previously reported as: 2.78 H mg/dL 39 Because ethnic data is not always readily available, this report includes an eGFR for both -Americans and non- Americans. The National Kidney Disease Education Program (NKDEP) does not endorse the use of the MDRD equation for patients that are not between the ages of 18 and 70, are , have extremes of body size, muscle mass, or nutritional status, or are non- or non-. According to the National Kidney Foundation, irrespective of diagnosis, the stage of the disease is based on the level of kidney function: Stage Description GFR(mL/min/1.73 m(2)) 1 Kidney damage with normal or decreased GFR 90 2 Kidney damage with mild decrease in GFR 60-89 3 Moderate decrease in GFR 30-59 4 Severe decrease in GFR 15-29 5 Kidney failure <15 (or dialysis) Procedures Date CPT Code Description Status 08/20/2017 63279 Moderate Sedation Services; Same Phys Intl 15 Mins; PT Completed >=5 Years 08/20/2017 26238 Color Flow Doppler/Interp & Reprt Completed 08/20/2017 67415 Pulse Wave/Continuous-Interp.RPT Completed 08/20/2017 79223 Echocardiography, Transesophageal, Real Time W/Image 2D Completed W/W/O M-M 08/05/2017 51189 Holter Monitor Review (24 hr)dr review & interp Completed only 08/04/2017 84878 ECG Monitor/Recording W/Visual Superimposition Scanning Completed 07/03/2017 17929 Nerve Conduction 13+ Studies Completed 07/03/2017 94111 Needle Electromyography Each Extremity W/Related Completed Paraspinal Areas Encounters Type Date Location Provider CPT E/M Dx Office Visit 09/29/2017 [facility] Shakeel Knox M.D. 58159 M79.1 3:00p Of Danish M54.5 M54.2 R76.0 Office Visit 08/25/2017 1:00p [facility] Shakeel Knox 36946 M79.1 [place] R20.8 R76.0 M54.5 M54.2 M25.571 Office Visit 08/04/2017 8:30a [facility] [address] Z86.73 M79.1 R51 I63.511 Office Visit 07/11/2017 8:30a [facility] [address] I63.511 R51 M79.1 Z86.73 Office Visit 06/13/2017 3:00p [facility] [address] M79.1 R51 R94.02 R53.1 Office Visit 01/31/2016 10:30a [facility] [place] [address] G43.109 [facility] L65.9 Office Visit 10/31/2015 11:00a [place] [address] G43.109 [facility] Plan of Care Future Appointment(s):03/02/2018 2:30 pm - Carly Goodrich MD at [id number]/30/2017 2:00 pm - Shakeel Knox M.D. at [facility]11/28/2017 - Carly Goodrich MDR51 HeadacheNew Medication:Topiramate 25 mgFollow up::Recommendations:stop nyvmgecebgszuQ27.73 Prsnl hx of TIA (TIA), and cereb infrc w/o resid deficitsFollow up:3 MONTHSRecommendations:get lower extremity ultrasound ordered in August scheduled.R94.02 Abnormal brain scanM79.1 Myalgia
--- OUTSIDE RECORDS SUMMARY | 2017-12-22 12:49 | XMS REPORT ---
:1975 External Reference #:[id number] Author Organization [facility] Address [address] [address] Phone [phone] Care Team Providers Name Role Phone Eli Oliveira MD Care Team Information Button Riveter Unavailable Payers Type Date Identification Numbers Payment Provider Subscriber Commercial Effective: Policy Number: Matt Toney 2011 [id number] PayID: [id number] 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 Inactive: 10/15/2016 Family History Date Family Member(s) [...] Form Strength Qnty SIG Indications Ordering Provider Atorvastatin 11/26/ Active Tablets 10mg 90tab 1 by mouth E78.2 Danika Calcium 2018 s every day Regi Tang RN MS [employer] COMPANY MANAGER 8 Hour 11/26/ Active Tablets ER 650mg 90tab one Tab M25.569 Danika Arthritis Pain 2018 s tid For Regi Reliever Arthritis Clyde RN MS Pain [employer] MA[employer]GER Ondansetron 11/26/ Active Tablets 4mg 30tab one tab as R11.10 Danika HCL 2018 s needed Regi every 8 [place], RN MS hours for [employer] MA[employer]GER nausea Lorazepam 11/18/ Active Tablets 0.5mg 4tabs 1-2 tabs F41.1 Danika, 2018 2-1 Regi hours Clyde RN MS Prior To [employer] Diltiazem CD 07/24/ Active Caps ER 240mg 30cap 1 by mouth I10 Danika, 2016 24HR s every day Regi Per Clyde ELIZONDO RN MS [place]in [employer] MANAGER KP Aspirin 07/24/ Active Tablets DR 81mg 30tab 1 by mouth Danika, 2016 s every day Regi Per Neuro Clyde RN MS [employer] MA[employer]GER Magnesium 07/24/ Active Capsules 400mg 90cap one once a N18.4 Danika, Oxide 2016 s day Regi Tang RN MS [employer] MA[employer]GER Calcitriol 05/27/ Active Capsules 0.25mcg 90cap one cap Danika, 2016 s daily Regi Tang RN MS [employer] MA[employer]GER Baclofen 05/23/ Active Tablets 10mg 60tab 1 tab twice M79.605 Danika 2016 s a day as Regi needed for Clyde RN MS muscle [employer]GER spasms Flintstones 03/03/ Active Chewtabs 1 tablet [place], Plus Iron 2016 twice daily Eli Armijo MD Albuterol 01/02/ Active Nebulizer (2.5mg/3ML 750ml 1 vial in J06.9 Danika, Sulfate 2016 ) 0.083% neb. q4hr Regi as needed Clyde RN MS [employer] MA[employer]GER Cetirizine HCL 11/08/ Active Tablets 10mg 90tab take one J45.40 Danika, 2016 s tablet by Regi mouth every Clyde, RN MS day for [employer] MANAGER allergy symptoms Advair Diskus 10/15/ Active Aerosol 250-50mcg/ 60uni Inhale One J45.40 Danika, 2015 Dose ts puff By Regi Mouth Twice C, RN MS A Day [employer] MA[employer]GER Ipratropium 09/11/ Active Solution 0.5-2.5(3) 360un Inhale The J45.40 Danika [place] 2016 mg/3ML its Contents Of Regi rol Sulfate One Vial C, RN MS Via [employer] MANAGER Nebulizer Four Times A Day For 7 Days Oxycodone-Acet 10/09/ Active Tablets 5-325mg 60tab 1 tablet by R51 Danika aminophen 2014 s mouth twice Regi a day as C, RN MS needed for [employer] COMPANY MANAGER pain Furosemide 10/09/ Active Tablets 20mg 30tab take 1 tab [place], 2014 s everyday Eli Armijo MD Hydroxyzine 08/24/ Active Tablets 10mg 45tab take one to F41.1 Roxanne HCL 2014 s three Eli tablets by MD Zofia mouth every 6 hours as needed for anxiety may take3- 5 tablets by mouth at bedtime for sleep Escitalopram 08/24/ Active Tablets 10mg 90tab Take One F41.1 Danika Oxalate 2014 s Tablet By Regi Mouth Every C, RN MS Day [employer] MA[employer]GER Meclizine HCL 02/15/ Active Tablets 25mg 30tab 2-1 by 386.11 Danika 2014 s mouth three Regi times a day C, RN MS as needed [employer] MANAGER Ventolin HFA 04/01/ Active Aerosol 108(90Base 18uni Inhale Two J45.40 Danika, 2012 ) mcg/Act ts Puffs By Regi Mouth Every C, RN MS 6 To 8 [employer] COMPANY MANAGER Hours as Needed Lisinopril 04/16/ Active Tablets 30mg 90tab take one I10 Danika 2011 s tablet by Regi mouth every C, RN MS day [employer] MA[employer]GER Omeprazole 04/16/ Active Capsules DR 40mg 30cap Take One K21.9 Roxanne 2011 s Capsule By Eli Mouth Every MD Zofia Day R10.13 Nortriptyline 12/10/2010 Active Capsules 25mg 30caps Take One G43.109 Danika, HCL Capsule By Regi Mouth At C, RN MS Bedtime [employer] MA[employer]GER Singulair 12/12/2004 Active Tablets 10mg 90tabs take one J45.20 Danika, tablet by Regi mouth every C, RN MS day [employer] MA[employer]GER Azithromycin 09/22/2017 Hx Tablets 500mg 3tabs 1 by mouth J15.9 Roxanne , - every day Eli 10/02/2017 MD Zofia Guaifenesin-Code 09/22/2017 Hx Syrup 100-1 180ml 5ml by J15.9 Roxanne, ine - 0mg/5 mouth every Eli 10/02/2017 ML 4 hours as MD Zofia needed cough Magnesium-Oxide 07/24/2017 Hx Tablets 400(2 90tabs take one N18.4 Danika, - 41.3m tablet by [facility] 07/24/2017 g) mg mouth every HANSEL Tang MS day [employer] MA[employer]GER 8 Hour Pain 05/23/2017 Hx Tablets ER 650mg Arthritis M79.604 Danika, Relief - Pain Med, [facility] 11/26/2017 Tylenol Up HANSEL Tang MS To 3 Times [employer] COMPANY MANAGER A Day. Ativan 05/23/2017 Hx Tablets 0.5mg 4tabs 1-2 tabs F41.1 Danika, - 1/2-1 [facility] 11/18/2017 hours HANSEL Tang MS Prior To [employer] MANAGER [employer] Please Consider 05/23/2017 Hx stage 4 Danika, Excusing From - kidney Regi Jury Duty 11/26/2017 disease, C RN MS needs freq [employer] MANAGER bathroom breaks, migraine headache freq, recent TIA attack, need no stress at this time, Promethazine HCL 05/01/2017 Hx Suppository 25mg 12units one per Danika , - rectum as [facility] 11/26/2017 needed ( HANSEL Tang MS after [employer] MANAGER unwrapping) for nausea or vomiting every 6-8 hours Amoxicillin 03/03/2017 Hx Capsules 500mg 10caps 500 mg 1 Roxanne, - tab every Eli 04/23/2017 12 hours x MD Zofia 5 days Vitamin D 01/02/2017 Hx Capsules 24367 10caps one cap E55.9 Danika, (Ergocalciferol) - Unit weekly x 10 [facility] 03/03/2017 weeks HANSEL Tang MS [employer] MANAGER Prednisone 01/02/2017 Hx Tablets 10mg 30tabs 4 tabs q am J06.9 Danika, - x3 days Regi 05/01/2017 then 3tabs CHANSEL MS x 3 days, [employer] MANAGER then2 tabs x3 d then 1tabs x3d Duloxetine HCL 11/08/[address] Part 30mg 90caps Once Daily, F33.9 Danika, - Increase To Regi 03/03/2017 2 Tabs C, RN MS After 2 [employer] MANAGER Weeks If No Change Nicotrol 10/15/2016 Hx Inhaler 10mg 168unit Inhale 1 F17.210 [place], - s every Eli 04/23/2017 2-3hrs prn MD Zofia Biaxin 09/17/2016 Hx Tablets 500mg 20tabs One Tab bid R06.02 Danika, - X 10 Days Regi 09/27/2016 C, RN MS [employer] MA[employer]GER Mucinex 09/11/2016 Hx Tablets ER 600mg 30tabs 1 tab per J45.40 [place], - 12HR oral twice Eli 04/23/2017 a day MD Zofia Cheratussin ac 08/23/2016 Hx Solution 100-1 118ml 1- teaspoon R06.02 Danika, - 0mg/5 at bedtime, Regi 09/02/2016 ML may repeat C, RN MS x 1 after 4 [employer] MANAGER hours if still needed Biaxin 08/23/2016 Hx Tablets 500mg 20tabs One Tab bid R06.02 Danika, - X 10 Days Regi 09/11/2016 C, RN MS [employer] MA[employer]GER Prednisone 08/23/2016 Hx Tablets 10mg 30tabs 4 tabs q am R06.02 Danika, - x3 days Regi 09/02/2016 then 3tabs C, RN MS x 3 days, [employer] MANAGER then2 tabs x3 d then 1tabs x3d Cheratussin ac 11/23/2015 Hx Solution 100-1 120unit 1-2 J20.9 Danika, - 0mg/5 s teaspoon at Regi 08/08/2016 ML bedtime, C, RN MS may repeat [employer] MANAGER x 1 after 4 hours if still needed Biaxin 11/23/2015 Hx Tablets 500mg 14tabs On Tab bid J20.9 Danika, - Till Gone Regi 08/08/2016 C, RN MS [employer] MANAGER Mirapex 11/23/2015 Hx Tablets 0.125 90tabs Take 2-3 G25.81 Danika, - mg Hours Regi 03/03/2017 Before Bed, C, RN MS May Cause [employer] MANAGER Daytime Drowsiness, Avoid Driving Levaquin 10/13/2015 Hx Tablets 500mg 50tabs once tab R31.9 [place], - daily x 5 Regi 11/23/2015 days Clyde RN MS [employer] MANAGER Cipro 10/13/2015 Hx Tablets 250mg 14tabs 1 by mouth R31.9 [place], - twice a day Regi 11/23/2015 x 7 days Clyde RN MS [employer] MANAGER Sumatriptan 10/12/2015 Hx Tablets 50mg Gavino, Succinate - [facility] 10/12/2015 MD Crai Sumatriptan 10/12/2015 Hx Tablets 100mg 30tabs take 1/2 to Gavino, Succinate - 1 tablet by [facility] 08/08/2016 mouth at MD Cari earliest onset of headache, may repeat once in 2 hours - max dose 2 tab qday Topamax 10/11/2015 Hx Tablets 25mg 30tabs take 1/2 Gavino, - tabs by [facility] 08/08/2016 mouth in in MD Cari the morning, may try up to 1 tab in 1 week if tolerated and additional benefit desired Maxalt-[employer] 10/11/2015 Hx Tablets 10mg 12tabs take 1 Gavino, - Dispers tablet at [facility] 10/12/2015 onset of MD Cari aura, may repeat 1 dose in 2 hours maximum daily dose=2 tablets Doxazosin 06/23/2015 Hx Tablets 2mg One Tab bid I10 [place], Mesylate - Per Nephro Regi 03/03/2017 HANSEL Tang MS [employer] COMPANY MANAGER Feosol 05/23/2015 Hx Tablets 325(6 30tabs 1 by mouth D50.9 Roxanne, - 5Fe) every day Eli 03/03/2017 mg with vit c MD Zofia Vitamin B-12 05/23/2015 Hx Tablets 1000m 30tabs 1 by mouth 281.1 Roxanne, - cg every day Eli 03/03/2017 MD Zofia Hydrocodone-Acet 06/01/2014 Hx Tablets 5-325 30tabs 1 tab by M54.31 Roxanne aminophen - mg mouth tid Eli 10/15/2016 as needed MD Zofia pain Amlodipine 06/01/2014 Hx Tablets 5mg 90tabs 1 by mouth I10 [place], Besylate - every day Regi 03/03/2017 C, RN MS [employer] MANAGER Labetalol HCL 06/01/2014 Hx Tablets 200mg 180tabs Take One I10 Danika, - Tablet By [facility] 07/24/2017 Mouth Twice C, RN MS A Day [facility] Robitussin ac 09/28/2013 Hx 240unit 10 ml qid 493.00 Roxanne, - s prn Eli 10/14/2013 MD Zofia Clarithromycin 02/10/2013 Hx Tablets 500mg 20tabs 1 po bid x 461.0 Roxanne, - 10 d hold Eli 10/14/2013 simvastatin MD Zofia and nortriptili ne during Nicotine 01/14/2013 Hx Gum 2mg QS use as 305.1 Danika Polacrilex - directed [facility] 06/01/2014 C, RN MS [facility] Kym 12/22/2012 Hx Tablets 180mg OTC One Daily 386.11 Danika, - uses for [facility] 10/15/2016 rash d/t C, RN MS desi [facility] exposure iin summer. Meclizine HCL 2012 Hx Tablets 25mg 30tabs 1/2-1 po 780.4 Danika, - tid prn [facility] 01/14/2013 C, RN MS [facility] Furosemide 10/15/2012 Hx Tablets 20mg 30tabs 1 by mouth 585.3 Danika, - every day [facility] 06/12/2015 C, RN MS [facility] Simvastatin 10/15/2012 Hx Tablets 20mg 30tabs take one E78.2 Danika, - tablet by [facility] 11/26/2017 mouth every C, RN MS day before [facility] bed Hydrocodone/Acet 04/16/2012 Hx Tablets 5-325 20tabs 1-2 tabs q6 724.5 Danika aminophen - mg hrs prn [facility] 09/28/2013 severe pain C, RN MS [facility] Klaron 04/16/2012 Hx Lotion 10% 1units bid as 695.3 Danika, - Directed [facility] 03/03/2017 C, RN MS [facility] Calcitriol 03/03/2012 Hx Capsules 0.25m Once Daily 782.1 Danika, - cg [facility] 03/03/2017 C, RN MS [facility] Metronidazole 03/03/2012 Hx Gel 0.75% 1units apply to 695.3 Danika, - face bid Regi 12/22/2012 Clyde RN MS [employer] MANAGER Dexilant 03/03/[address] 60mg 30caps once daily 782.1 Danika, - Regi 04/16/2012 Clyde RN MS [employer] MA[employer]GER Cyclobenzaprine 01/27/2012 Hx Tablets 10mg 30tabs Take 1/2 To 333.94 Danika, HCL - 1 Tablet By Regi 06/01/2014 Mouth At Clyde, RN MS Bedtime as [employer] MANAGER Needed For Leg Spasm Tramadol HCL 01/14/2012 Hx Tablets 50mg 60tabs take 1 784.0 Danika, - TAblet up Regi 06/01/2014 to 4 times Clyde RN MS a day as [employer] MANAGER needed for pain. 724.5 Fluticasone 01/14/2012 - Hx Suspension 50mcg/Act 1units one spray R51 Danika, Propionate 10/09/2015 per each Regi nostril qd HANSEL Tang MS [employer] MANAGER Ipratropium 10/01/2011 - Hx Solution 0.02% 60units use in J45.3 Danika, [place] 09/11/2016 nebulizer 0 Regi four times a Clyde RN MS day [employer]GER J45.40 J45.998 Pantoprazole 09/30/2011 - Hx Tablets DR 40mg 90tabs 1 po qd 530.11 Danika, Sodium 04/16/2012 Regi Tang RN MS [employer] MA[employer]GER Clarithromycin 09/30/2011 - Hx Tablets 500mg 28tabs 1 po bid x 466.0 [facility], 01/14/2012 14 d Eli Armijo MD Medrol Dosepak 09/30/2011 - Hx Tablets 4mg 1Pack as dir 493.00 Roxanne, 01/14/2012 Eli Armijo MD Robitussin ac 09/30/2011 - Hx 120ml 10 ml qid 493.00 [place], 01/14/2012 prn Eli Armijo MD Chantix 09/06/2011 - Hx Tablets 0.5mg 1tabs starter 305.1 Danika, 01/14/2012 pack, use as Regi Tang RN MS [employer] MA[employer]GER Chantix 09/06/2011 - Hx Tablets 1mg 60tabs 1 po bid 305.1 Danika, 12/22/2012 with lots of Regi Tang RN MS [employer] MANAGER Albuterol Sulfate 03/29/2011 - Hx Nebulizer (2.5mg 1Box 1 vial in J45.40 [facility], 10/15/2016 /3ML) neb. q4hr as Eli 0.083% needed MD Zofia Labetalol HCL 01/16/2011 - Hx Tablets 100mg 60tabs Take One 401.1 [place], 06/01/2014 Tablet By Regi Mouth Twice HANSEL Tang MS A Day [employer] Famvir 12/20/2010 - Hx Tablets 500mg 21tabs 1 po tid x 7 053.9 [place], 01/14/2012 days Regi Tang RN MS [employer] MA[employer]GER Flexeril 12/20/2010 - Hx Tablets 10mg 30tabs 1/2-1 Tab hs 333.94 [facility], 01/27/2012 prn Leg Eli sravan Armijo MD Nortriptyline HCL 12/10/2010 - Hx Capsules 25mg 90caps 1 po qd hs [place], 12/10/2010 Regi Tang RN MS [employer] MA[employer]GER Biaxin XL 10/24/2010 - Hx Tablets ER 500mg 20tabs 2 po qd x 10 465.9 [place], 12/20/2010 24HR days Regi Tang RN MS [employer] MA[employer]GER Biaxin XL 2009 - Hx Tablets ER 500mg 20tabs 2 po qd x 10 465.9 [place], 12/24/2009 24HR days Regi Tang RN MS [employer] MA[employer]GER Robitussin ac 2009 - Hx 100cc 1-2 tsp qid 465.9 [place], 12/24/2009 prn cough Regi Tang RN MS [employer] MA[employer]GER Soma 11/29/2009 - Hx Tablets 250mg 30tabs 1 tab q 6 [place], 11/29/2009 hours prn Regi muscle spasm HANSEL Tang MS [employer] MA[employer]GER Soma 11/29/2009 - Hx Tablets 350mg 30tabs 1 hs prn [place], 12/20/2010 muscle Regi spasms Clyde, RN MS [employer] MA[employer]GER Drisdol 11/29/2009 - Hx Capsules 96855Y 8caps 1 tab po q [place], 01/14/2012 nit weekly for 8 Regi weeks HANSEL Tang MS [employer] MA[employer]GER Hydrocodone-Aceta 10/25/2009 - Hx Tablets 5-500m 40tabs 1-2 tabs q6 Danika, minophen 04/16/2012 g hrs prn Regi severe pain C, RN MS [employer] MA[employer]GER Amoxicillin 08/09/2009 - Hx Tablets 875mg 28tabs 1 po bid 466.0 [place], 08/29/2009 take till Regi gone( 14 C, RN MS days) [employer] MA[employer]GER Atrovent 08/09/2009 - Hx Solution 0.06% 30units use with one 466.0 Danika, 08/09/2009 amp of Regi albuterol HANSEL Tang MS tid [employer] MA[employer]GER Atrovent 08/09/2009 - Hx Solution 0.03% 60units use with the 466.0 [place], 01/14/2013 albuterol in Eli nebulizer MD Zofia qid Lotrisone 05/26/2009 - Hx Cream 15gm apply bid as 782.1 [place], 11/16/2009 directed Kimani, under breast area Chantix 02/21/2009 - Hx Tablets 0.5mg 1tabs starter 305.1 Danika, 03/23/2009 pack, use as Regi directed HANSEL Tang MS [employer] MA[employer]GER Lisinopril 02/21/2009 - Hx Tablets 20mg 90tabs Take 1 401.1 [place], 04/16/2012 Tabley By Eli Mouth Once MD Zofia Daily Fexofenadine HCL 10/06/2008 - Hx Tablets 180mg 30tabs 1 Tab Daily 381.81 [place], 11/16/2009 as Needed Regi For HANSEL Tang MS Allergies [employer] MA[employer]GER Naprosyn 10/06/2008 - Hx Tablets 500mg 60tabs 1 PO bid 625.3 [place], 07/15/2011 With Food Regi prn Pain Clyde RN MS [employer] MA[employer]GER Pulmocort 10/06/2008 - Hx 180mcg Samples 1-2 J45.20 Danika, Flexinhaler 10/15/2016 inhalation Regi bid Clyde RN MS [employer] MA[employer]GER J45.40 J45.998 Tessalon 10/06/2008 - Hx Capsules 200mg 30caps 1 Tab Q 8 493.00 [place], 11/16/2009 HRS prn Regi Cough Clyde RN MS [employer] MA[employer]GER Lisinopril 10/06/2008 - Hx Tablets 10mg 90tabs 1 PO qd 401.1 Danika, 02/21/2009 Regi Tang RN MS [employer] MA[employer]GER Hydrochlorothiazide 10/06/2008 - Hx Tablets 12.5mg 90tabs 1 qd as 401.1 [place], 03/03/2012 Directed Regi Tang RN MS [facility] Lisinopril/Hydrochlor 02/24/2008 - Hx Tablets 10-12. 90tabs 1 po qd Danika, othiazide 10/31/2008 5 Regi Tang RN MS [employer] MA[employer]GER Hydrochlorothiazide 02/24/2008 - Hx Tablets 12.5mg 30tabs 1 qd as [place], 03/25/2008 Directed Regi Tang RN MS [employer] MA[employer]GER Compazine 09/08/2007 - Hx Tablets 10mg 10tabs 1 PO Q8 558.9 [place], 10/08/2007 Hours prn Regi Tang RN MS Vomiting [facility] Meclizine HCL 09/08/2007 - Hx Tablets 25mg 30tabs 1 Tab hs 386.11 [place], 02/24/2008 Regi Tang RN MS [facility] Nasocort Nasal [place] 03/25/2007 - Hx Samples 2 squirts 381.81 [place], 12/20/2010 each Regi nostrtatiana Tang RN MS once daily [facility] Amoxil 02/09/2007 - Hx Tablets 875mg 20tabs 1 bid For 464.20 [place], 02/19/2007 10 Days Regi Tang RN MS [facility] Fexofenadine 02/04/2007 - Hx Tablets 180mg 90tabs 1 po qd 476.0 Danika, 02/24/2008 Regi Tang RN MS [facility] Amoxicillin 01/23/2007 - Hx Tablets 500mg 30tabs 1 po tid 462 [place], 02/04/2007 Eli Armijo MD Biaxin XL 1 Pac 10/07/2006 - Hx Tablets 500mg 1Pack qd AD 465.9 Danika, 2009 Regi Tang RN MS [facility] Ibuprofen 07/29/2006 - Hx Tablets 600mg 90tabs 1 Q6 HRS 719.42 [place], 10/06/2008 prn Pain Regi Tang RN MS [facility] Biaxin XL 1 Pac 04/28/2006 - Hx [...] Solution 0.083% 1Box i vial in 466.0 [place], 03/29/2011 neb. q4hr Regi Tang RN MS (usually [employer] COMPANY MANAGER bid-tid) Azmacort Inhaler 02/12/2006 - Hx Aerosol 100mcg 1units 2 puffs 786.2 [place], 02/04/2007 /[place] tid use Regi Tang RN MS albuterol [employer] MA[employer]GER Z-Henrique 02/12/2006 - Hx Tablets 250mg 1Pack as 466.0 [place], 02/12/2006 directed Regi Tang RN MS [employer] MA[employer]GER Biaxin XL 2 Pac 02/12/2006 - Hx Tablets 500mg 14tabs 2 tabs qd 466.0 [place], 02/19/2006 x 7 days Regi Tang RN MS [employer] MA[employer]GER Nexium 01/09/2005 - Hx Capsules 40mg 60caps 1 po bid [facility], 09/30/2011 DR on an Kimani yan MD stomach Nortriptyline 12/12/2004 - Hx Capsules 25mg 90caps 1 po qd hs [place], 12/10/2010 Regi Tang RN MS [employer] MA[employer]GER Labetalol 12/12/2004 - Hx Tablets 100mg 180tabs 1 po bid [place], 01/16/2011 Regi Tang RN MS [employer] MA[employer]GER Albuterol Inhalation 12/12/2004 - Hx Aerosol 90mcg/ 1units 2 puffs [place], 10/14/2013 Dose q6-8 hrs Regi Tang RN MS [employer] MA[employer]GER Lisinopril 12/12/2004 - Hx Tablets 10mg 180tabs 1 po bid [place], 02/24/2008 Eli Armijo MD Pepcid 12/12/2004 - Hx Tablets 40mg 1 po qd [place], 01/09/2005 MD Kimani Benicar HCT 12/12/2004 - Hx Tablets 12.5mg [place], 02/12/2006 ;40 mg MD Kimani Fastin 12/12/2004 - Hx 30mg 30units 1 po in [place], 03/12/2005 morning 30 Kimani min before MD breakfast Elidel Cream 12/12/2004 - Hx Cream 1% 30gm apply [place], 02/12/2006 sparingly Kimani castano MD Medications Administered in Office Medication Date Status Form Strength Qnty SIG Indications Ordering Provider PPD 01/13 Administered Injection [place], Regi Tang RN MS [employer] MANAGER PPD 11/17 Administered Injection Nurses /2009 Schedule Opal PPD 03/16 Administered Injection Nurses /2006 Schedule Opal PPD 03/16 Administered Injection [place], MD Kimani PPD 11/14 Administered Injection [place], MD Kimani Torodol Injection 03/26 Administered Injection Trabout, 15 MG Dose /2000 MD Kimani Torodol Injection 03/25 Administered Injection Mahesh, 15 MG Dose /2000 Logan Palacio Solumedrol 03/02 Administered Injection Hailey [place] /2000 Desi, Sodium Succinate RN A.N.P. Up To 40 MG Immunizations CPT Code Status Date Vaccine Lot # [id number] Given 01/14/2012 Tdap (Adacel) Ages 7 And Above Only [id number] 16076 Given 09/14/2007 Afluria Or Fluvirin Flu Vac Intramuscular 52379 Given 09/14/2007 Afluria Or Fluvirin Flu Vac Intramuscular [id number] 02446 Given 10/07/2006 Afluria Or Fluvirin Flu Vac Intramuscular [id number], 32871 Given 08/21/2005 Afluria Or Fluvirin Flu Vac Intramuscular [id number] 74069 Given 10/03/2004 Afluria Or Fluvirin Flu Vac Intramuscular [id number] Refused 11/08/2016 Influenza Vac, 3 Yrs & Older, Quadrivalent, Split, Im Use Vital Signs Date Vital Result Comment 11/26/2017 Weight 240.19 lb Heart Rate 79 [...] Test Date Test Result H/L Range Note PTH,Intact W/ CA -RL 04/23/2017 PTH, Intact @ 164.0 pg/mL High (12-65) Calcium @ 9.3 mg/dL (8.4-10.2) 1 Laboratory test finding 04/23/2017 Magnesium 1.6 mg/dL 1.5-2.7 Comprehensive Metabolic (CMP) 04/23/2017 Sodium 141 mmol/L 135-146 2 Potassium 4.8 mmol/L 3.5-5.2 Chloride# 110 mmol/L 97-110 3 Carbon Dioxide 21 Electrolytes <SEE NOTE> mmol/L Low 24-34 4 Glucose 80 mg/dL 70-105 BUN 29 mg/dL High 6-26 Creatinine 3.5 mg/dL High 0.5-1.4 Calcium 9.3 mg/dL 8.5-10.2 Total Protein 6.6 g/dL 6.0-8.0 Albumin 4.2 g/dL 3.6-4.9 Globulin 2.4 g/dL 2.0-3.5 A/G Ratio 1.8 Ratio 1.0-2.2 Total Bilirubin 0.6 mg/dL 0.1-1.3 Alkaline Phosphatase 45 U/L 24-140 Alt 10 U/L 3-42 Ast 12 U/L 8-42 Natalee Egfr 17 Low >60 5 Non Natalee Egfr 14 Low >60 6 Anion Gap 15 mmol/L 7-16 7 Laboratory test finding 04/23/2017 Vit D,25 Hydroxy 38 ng/mL 31-100 TSH 1.78 uIU/mL 0.35-4.94 Laboratory test finding 03/03/2017 Vit D,25 Hydroxy 42 ng/mL 31-100 PTH,Intact W/ CA -RL 11/08/2016 PTH, Intact @ 140.0 pg/mL High (12-65) Calcium @ 9.2 mg/dL (8.4-10.2) 8 Comprehensive Metabolic (CMP) 11/08/2016 Sodium 137 mmol/L 134-142 Potassium 5.5 No visible h <SEE NOTE> mmol/L High 3.5-5.2 9 Chloride 107 mmol/L 97-109 Carbon Dioxide 25 [...] mmol/L 6-14 Natalee Egfr 25 Low >60 10 Non Natalee Egfr 21 Low >60 11 Laboratory test finding 11/08/2016 CCP Antibody Igg [...] High 30-200 HDL 32 mg/dL Low 35-85 12 Chol/ HDL Ratio 7.3 ratio High 3.7-5.6 VLDL 44 mg/dL High 2-29 LDL (Calc) 159 mg/dL High 20-99 13 CBC With Auto Diff 11/08/2016 WBC 8.0 [...] High 30-200 HDL 26 mg/dL Low 35-85 14 Chol/ HDL Ratio 7.2 ratio High 3.7-5.6 VLDL 47 mg/dL High 2-29 LDL (Calc) 115 mg/dL High 20-99 15 Comprehensive Metabolic (CMP) 05/15/2016 Sodium 139 mmol/L [...] mmol/L 6-14 Natalee Egfr 21 Low >60 16 Non Natalee Egfr 17 Low >60 17 Laboratory test finding 05/15/2016 LH 6.8 mIU/ml 18 TSH 2.67 uIU/mL 0.35-4.94 Phosphorus 3.0 mg/dL 2.5-5.0 PTH,Intact W/ CA -RL 05/15/2016 PTH, Intact @ 78.5 pg/mL High (12-65) Calcium @ 9.5 mg/dL (8.4-10.2) 19 Laboratory test finding 05/15/2016 FSH 6.9 mIU/ml 20 CBC With Auto Diff 05/15/2016 WBC 8.5 [...] visible h <SEE NOTE> mmol/L High 3.5-5.2 21 Chloride 107 mmol/L 97-109 Carbon Dioxide 28 mmol/L 24-34 Glucose 99 mg/dL 70-105 BUN 22 mg/dL 6-26 Creatinine 2.8 Consistent w <SEE NOTE> mg/dL High 0.5-1.4 22 Calcium 8.9 mg/dL 8.5-10.2 Total Protein 6.2 g/dL 6.0-8.0 Albumin 3.9 g/dL 3.6-4.9 Globulin 2.3 g/dL 2.0-3.5 A/G Ratio 1.7 Ratio 1.0-2.2 Total Bilirubin 0.4 mg/dL 0.1-1.3 Alkaline Phosphatase 36 U/L 24-140 Alt 7 U/L 3-42 Ast 10 U/L 8-42 Anion Gap 8 mmol/L 6-14 Natalee Egfr 23 Low >60 23 Non Natalee Egfr 19 Low >60 24 CBC With Auto Diff 12/27/2015 WBC 6.4 [...] mmol/L 6-14 Natalee Egfr 22 Low >60 25 Non Natalee Egfr 18 Low >60 26 Iron Panel 11/23/2015 Iron, Total 23 g/dL [...] test 10/13/2015 Urine Culture Microbiology res <SEE 27 finding NOTE> CBC With Auto Diff 05/23/2015 WBC 6.9 K/uL 4.1-11.0 28 RBC 4.34 M/uL 4.00-5.40 28 Hemoglobin 12.9 gm/dL 12.0-16.0 28 Hematocrit 37.9 % 36.0-47.0 28 MCV 87.3 fL 80.0-97.0 28 MCH 29.7 pg 27.0-32.0 28 MCHC 34.0 g/dL 32.0-36.0 28 RDW 15.9 % High 11.5-14.5 28 PLT Count 153 K/ul 140-400 28 Neutrophil 67.6 % 35.0-75.0 28 Lymphocyte 22.3 % 16.0-52.0 28 Monocyte 6.8 % 2.0-10.0 28 Eosinophil 2.4 % 0.0-5.0 28 Basophil 0.9 % 0.0-4.0 28 Abs Neutrophils 4.6 K/uL 2.1-8.0 28 Abs Lymphocytes 1.5 K/uL 0.8-5.5 28 Abmon 0.5 K/uL 0.1-1.0 28 Abs Eosinophils 0.2 K/uL 0.0-0.5 28 Abs Basophils 0.1 K/uL 0.0-0.3 28 Comprehensive Metabolic (CMP) 05/23/2015 Sodium 139 mmol/L 134-142 28 Potassium 4.7 mmol/L 3.5-5.2 28 Chloride 107 mmol/L 97-109 28 Carbon Dioxide 28 mmol/L 24-34 28 Glucose 97 mg/dL 70-105 28 BUN 33 mg/dL High 6-26 28 Creatinine 3.1 mg/dL High 0.5-1.4 28 Calcium 9.6 mg/dL 8.5-10.2 28 Total Protein 6.5 g/dL 6.0-8.0 28 Albumin 4.2 g/dL 3.6-4.9 28 Globulin 2.3 g/dL 2.0-3.5 28 A/G Ratio 1.8 Ratio 1.0-2.2 28 Total Bilirubin 0.4 mg/dL 0.1-1.3 28 Alkaline Phosphatase 36 U/L 24-140 28 Alt 9 U/L 3-42 28 Ast 12 U/L 8-42 28 Anion Gap 9 mmol/L 6-14 28 Natalee Egfr 20 Low >60 28, 29 Non Natalee Egfr 17 Low >60 28, 30 Lipid 05/23/2015 Cholesterol 172 mg/dL 50-199 28 Triglycerides 341 mg/dL High 30-200 28 HDL 26 mg/dL Low 35-85 28, 31 Chol/ HDL Ratio 6.6 ratio High 3.7-5.6 28 VLDL 68 mg/dL High 2-29 28 LDL (Calc) 78 mg/dL 20-99 28, 32 Laboratory test finding 05/23/2015 Vitamin B12 273 pg/mL 180-914 28 Iron Panel 05/23/2015 Iron, Total 41 g/dL Low 50-170 28 Transferrin 298.5 mg/dL 203.0-362.0 28 Tibc (calc) 418 g/dL 261-478 28 % Iron Saturation 9.8 % Low 13.0-45.0 28 Laboratory test finding 05/23/2015 Ferritin 7.9 ng/ml Low 11.0-306.0 28 Lipid Treatment 02/15/2015 Cholesterol 214 mg/dL High 50-199 33 Triglycerides 244 mg/dL High 30-200 33 HDL 32 mg/dL Low 35-85 33, 34 Chol/ HDL Ratio 6.7 ratio High 3.7-5.6 33 VLDL 49 mg/dL High 2- 33 LDL (Calc) 133 mg/dL High 20-99 33, 35 Alt 7 U/L 3-42 33 Ast 12 U/L 8-42 33 Laboratory test finding 02/15/2015 Ferritin 5.6 ng/ml Low 11.0-306.0 33 Vitamin B12 121 pg/mL Low 180-914 33 Lipid 10/14/2013 Cholesterol 217 mg/dL High 50-199 36 Triglycerides 271 mg/dL High 30-200 36 HDL 31 mg/dL Low 35-85 36, 37 Chol/ HDL Ratio 7.0 ratio High 3.7-5.6 36 VLDL 54 mg/dL High 2-29 36 LDL (Calc) 132 mg/dL High 20-99 36, 38 Iron Panel 10/14/2013 Iron, Total 50 g/dL 50-170 36 Transferrin 333.9 mg/dL 203.0-362.0 36 Tibc (calc) 467 g/dL 261-478 36 % Iron Saturation 10.7 % Low 13.0-45.0 36 Renal Panel 09/07/2013 Sodium 137 mmol/L 134-142 39 Potassium 4.9 mmol/L 3.5-5.2 39 Chloride 106 mmol/L 97-109 39 Carbon Dioxide 26 mmol/L 24-34 39 Glucose 101 mg/dL 70-105 39 BUN 24 mg/dL 6-26 39 Creatinine 2.3 mg/dL High 0.5-1.4 39 BUN/CR 11 ratio Low 12-20 39 Anion Gap 10 mmol/L 6-14 39 Calcium 9.1 mg/dL 8.5-10.2 39 Phosphorus 2.9 mg/dL 2.5-5.0 39 Albumin 4.1 g/dL 3.6-4.9 39 Non Natalee Egfr 24 Low >60 39, 40 Natalee Egfr 29 Low >60 39, 41 CBC With Auto Diff 09/07/2013 WBC 6.7 K/uL 4.1-11.0 39 RBC 4.05 M/uL 4.00-5.40 39 Hemoglobin 11.4 gm/dL Low 12.0-16.0 39 Hematocrit 33.6 % Low 36.0-47.0 39 MCV 83.1 fL 80.0-97.0 39 MCH 28.2 pg 27.0-32.0 39 MCHC 33.9 g/dL 32.0-36.0 39 RDW 15.5 % High 11.5-14.5 39 PLT Count 142 K/ul 140-400 39 Neutrophil 60.8 % 35.0-75.0 39 Lymphocyte 25.0 % 16.0-52.0 39 Monocyte 9.9 % 2.0-10.0 39 Eosinophil 3.2 % 0.0-5.0 39 Basophil 1.1 % 0.0-4.0 39 Abs Neutrophils 4.0 K/uL 2.1-8.0 39 Abs Lymphocytes 1.7 K/uL 0.8-5.5 39 Abmon 0.7 K/uL 0.1-1.0 39 Abs Eosinophils 0.2 K/uL 0.0-0.5 39 Abs Basophils 0.1 K/uL 0.0-0.3 39 Laboratory test finding 09/07/2013 Vit D,25 Hydroxy 28 ng/mL Low 31-100 39 PTH,Intact W/ CA -RL 09/07/2013 PTH, Intact @ 80.9 pg/mL High (12-65) 39 Calcium @ 8.9 mg/dL (8.4-10.2) 39, 42 Laboratory test finding 02/10/2013 TSH 3.59 uIU/mL 0.34-5.60 43 Lipid Treatment 02/10/2013 Cholesterol 161 mg/dL 50-199 43 Triglycerides 260 mg/dL High 30-200 43 HDL 30 mg/dL Low 35-85 43, 44 Chol/ HDL Ratio 5.4 ratio 3.7-5.6 43 VLDL 52 mg/dL High 2-29 43 LDL (Calc) 79 mg/dL 20-129 43, 45 Alt 12 U/L 3-42 43 Ast 16 U/L 8-42 43 Comprehensive Metabolic (CMP) 02/10/2013 Sodium 137 mmol/L 134-142 43 Potassium 4.4 mmol/L 3.5-5.2 43 Chloride 107 mmol/L 97-109 43 Carbon Dioxide 25 mmol/L 24-34 43 Glucose 104 mg/dL 70-105 43 BUN 18 mg/dL 6-26 43 Creatinine 2.0 mg/dL High 0.5-1.4 43 Calcium 9.0 mg/dL 8.5-10.2 43 Total Protein 7.2 g/dL 6.0-8.0 43 Albumin 4.5 g/dL 3.6-4.9 43 Globulin 2.7 g/dL 2.0-3.5 43 A/G Ratio 1.7 Ratio 1.0-2.2 43 Total Bilirubin 0.5 mg/dL 0.1-1.3 43 Alkaline Phosphatase 39 U/L 24-140 43 Alt 12 U/L 3-42 43 Ast 16 U/L 8-42 43 Anion Gap 9 mmol/L 6-14 43 Natalee Egfr 34 Low >60 43, 46 Non Natalee Egfr 28 Low >60 43, 47 CBC With Auto Diff 02/10/2013 WBC 5.2 K/uL 4.1-11.0 43 RBC 4.39 M/uL 4.00-5.40 43 Hemoglobin 12.5 gm/dL 12.0-16.0 43 Hematocrit 36.7 % 36.0-47.0 43 MCV 83.6 fL 80.0-97.0 43 MCH 28.5 pg 27.0-32.0 43 MCHC 34.1 g/dL 32.0-36.0 43 RDW 15.9 % High 11.5-14.5 43 PLT Count 141 K/ul 140-400 43 Neutrophil 64.4 % 35.0-75.0 43 Lymphocyte 23.0 % 16.0-52.0 43 Monocyte 9.5 % 2.0-10.0 43 Eosinophil 2.5 % 0.0-5.0 43 Basophil 0.6 % 0.0-4.0 43 Abs Neutrophils 3.4 K/uL 2.1-8.0 43 Abs Lymphocytes 1.2 K/uL 0.8-5.5 43 Abs Monocytes 0.5 K/uL 0.1-1.0 43 Abs Eosinophils 0.1 K/uL 0.0-0.5 43 Abs Basophils 0.0 K/uL 0.0-0.3 43 Laboratory test finding 10/20/2012 Vit D,25 Hydroxy 30 ng/mL Low 31-100 48 CBC With Auto Diff 10/20/2012 WBC 6.2 K/uL 4.1-11.0 48 RBC 4.16 M/uL 4.00-5.40 48 Hemoglobin 11.7 gm/dL Low 12.0-16.0 48 Hematocrit 34.9 % Low 36.0-47.0 48 MCV 84.0 fL 80.0-97.0 48 MCH 28.1 pg 27.0-32.0 48 MCHC 33.4 g/dL 32.0-36.0 48 RDW 15.1 % High 11.5-14.5 48 PLT Count 148 K/ul 140-400 48 Neutrophil 59.4 % 35.0-75.0 48 Lymphocyte 27.6 % 16.0-52.0 48 Monocyte 9.7 % 2.0-10.0 48 Eosinophil 2.7 % 0.0-5.0 48 Basophil 0.6 % 0.0-4.0 48 Abs Neutrophils 3.7 K/uL 2.1-8.0 48 Abs Lymphocytes 1.7 K/uL 0.8-5.5 48 Abs Monocytes 0.6 K/uL 0.1-1.0 48 Abs Eosinophils 0.2 K/uL 0.0-0.5 48 Abs Basophils 0.0 K/uL 0.0-0.3 48 Comprehensive Metabolic (CMP) 10/20/2012 Sodium 139 mmol/L 134-142 48 Potassium 5.2 mmol/L 3.5-5.2 48 Chloride 103 mmol/L 97-109 48 Carbon Dioxide 29 mmol/L 24-34 48 Glucose 101 mg/dL 70-105 48 BUN 30 mg/dL High 6-26 48 Creatinine 2.2 mg/dL High 0.5-1.4 48 Calcium 9.6 mg/dL 8.5-10.2 48 Total Protein 6.5 g/dL 6.0-8.0 48 Albumin 4.3 g/dL 3.6-4.9 48 Globulin 2.2 g/dL 2.0-3.5 48 A/G Ratio 2.0 Ratio 1.0-2.2 48 Total Bilirubin 0.4 mg/dL 0.1-1.3 48 Alkaline Phosphatase 35 U/L 24-140 48 Alt 10 U/L 3-42 48 Ast 12 U/L 8-42 48 Anion Gap 12 mmol/L 6-14 48 Natalee Egfr 31 Low >60 48, 49 Non Natalee Egfr 26 Low >60 48, 50 Laboratory test finding 10/20/2012 Hemoglobin A1c 5.9 % 4.1-5.9 48 Lipid 10/20/2012 Cholesterol 197 mg/dL 50-199 48 Triglycerides 311 mg/dL High 30-200 48 HDL 26 mg/dL Low 35-85 48, 51 Chol/ HDL Ratio 7.6 ratio High 3.7-5.6 48 VLDL 62 mg/dL High 2- 48 LDL (Calc) 109 mg/dL 20-129 48, 52 Non HDL Cholesterol 171 mg/dL High 20-129 48 Lipid 05/05/2012 Cholesterol 188 mg/dL 50-199 53 Triglycerides 252 mg/dL High 30-200 53 HDL 24 mg/dL Low 35-85 53, 54 Chol/ HDL Ratio 7.8 ratio High 3.7-5.6 53 VLDL 50 mg/dL High 2-29 53 LDL (Calc) 114 mg/dL 20-129 53, 55 Comprehensive Metabolic (CMP) 05/05/2012 Sodium 141 mmol/L 134-142 53 Potassium 4.3 mmol/L 3.5-5.2 53 Chloride 107 mmol/L 97-109 53 Carbon Dioxide 25 mmol/L 24-34 53 Glucose 107 mg/dL High 70-105 53 BUN 22 mg/dL 6-26 53 Creatinine 1.9 mg/dL High 0.5-1.4 53 Calcium 9.1 mg/dL 8.5-10.2 53 Total Protein 6.5 g/dL 6.0-8.0 53 Albumin 4.2 g/dL 3.6-4.9 53 Globulin 2.3 g/dL 2.0-3.5 53 A/G Ratio 1.8 Ratio 1.0-2.2 53 Total Bilirubin 0.4 mg/dL 0.1-1.3 53 Alkaline Phosphatase 36 U/L 24-140 53 Alt 8 U/L 3-42 53 Ast 11 U/L 8-42 53 Anion Gap 13 mmol/L 6-14 53 Natalee Egfr 36 Low >60 53, 56 Non Natalee Egfr 29 Low >60 53, 57 CBC With Auto Diff 05/05/2012 WBC 7.6 K/uL 4.1-11.0 53 RBC 4.02 M/uL 4.00-5.40 53 Hemoglobin 11.7 gm/dL Low 12.0-16.0 53 Hematocrit 34.0 % Low 36.0-47.0 53 MCV 84.6 fL 80.0-97.0 53 MCH 29.2 pg 27.0-32.0 53 MCHC 34.5 g/dL 32.0-36.0 53 RDW 15.8 % High 11.5-14.5 53 PLT Count 156 K/ul 140-400 53 Neutrophil 64.7 % 35.0-75.0 53 Lymphocyte 24.3 % 16.0-52.0 53 Monocyte 7.5 % 2.0-10.0 53 Eosinophil 2.8 % 0.0-5.0 53 Basophil 0.7 % 0.0-4.0 53 Abs Neutrophils 4.9 K/uL 2.1-8.0 53 Abs Lymphocytes 1.9 K/uL 0.8-5.5 53 Abs Monocytes 0.6 K/uL 0.1-1.0 53 Abs Eosinophils 0.2 K/uL 0.0-0.5 53 Abs Basophils 0.1 K/uL 0.0-0.3 53 Renal Panel 05/05/2012 Rejected Test Reason Cancelled 53 Renal Panel 01/14/2012 Sodium 144 mmol/L High 134-142 58, 59 Potassium 4.9 mmol/L (3.6-5.2) 58 Chloride 108 mmol/L (100-108) 58 Co2 25 mmol/L (22-31) 58 Anion Gap 11 mmol/L (7-16) 58 Urea Nitrogen 14 mg/dL (7-24) 58 Creatinine 1.8 mg/dL High (0.6-1.0) 58 BUN/Creat Ratio 7.8 RATIO Low (10.0-20.0) 58 Glucose 96 mg/dL (70-99) 58 Calcium 8.8 mg/dL (8.4-10.2) 58 Phosphorus 2.9 mg/dL (2.5-4.5) 58 Albumin 3.7 g/dL (3.5-4.6) 58 GFR 34 ML/MIN/1.73M2 Low (>59) 58 GFR ( Amer) 41 ML/MIN/1.73M2 Low (>59) 58 GFR Interpretation (SEE NOTE) 58, 60 Rejected Test Reason Cancelled 58 CBC With Auto Diff 01/14/2012 WBC 7.0 K/UL (4.1-11.0) 58 RBC 3.86 M/UL Low (4.00-5.40) 58 HGB 11.1 GM/DL Low (12.0-16.0) 58 HCT 32.0 % Low (36.0-47.0) 58 MCV 83.1 FL (80.0-95.0) 58 MCH 28.9 pg (27.0-32.0) 58 MCHC 34.8 g/dL (32.0-36.0) 58 RDW 16.1 % High (10.5-14.5) 58 PLT 156 K/UL (150-400) 58 MPV 10.4 FL (7.1-10.7) 58 Neut % 59.9 % (35.0-75.0) 58 Lymph % 26.6 % (16.0-52.0) 58 [place] % 10.1 % High (0-8.0) 58 Eos % 3.0 % (0-5.0) 58 Baso % 0.4 % (0-4.0) 58 Neut # 4.2 K/UL (1.8-7.7) 58 Lymph # 1.9 K/UL (1.2-4.8) 58 [place] # 0.7 K/UL (0-0.8) 58 Eos # 0.2 K/UL (0-0.5) 58 Baso # 0.0 K/UL (0-0.2) 58, 61 PTH,Intact W/ CA -RL 01/14/2012 PTH, Intact @ 47.8 pg/mL (12-65) 58, 62 Calcium @ 8.9 mg/dL (8.4-10.2) 58, 63 PTH,Intact W/ CA -RL 08/19/2011 PTH, Intact @ 40.1 pg/mL (-65) 64, 65 Calcium @ 9.5 mg/dL (8.4-10.2) 64, 66 Renal Panel 08/19/2011 Sodium 141 mmol/L (136-145) 64 Potassium 4.8 mmol/L (3.6-5.2) 64 Chloride 105 mmol/L (100-108) 64 Co2 28 mmol/L (22-31) 64 Anion Gap 8 mmol/L (7-16) 64 Urea Nitrogen 22 mg/dL (7-24) 64 Creatinine 2.1 mg/dL High (0.6-1.0) 64 BUN/Creat Ratio 10.5 RATIO (10.0-20.0) 64 Glucose 116 mg/dL High (70-99) 64, 67 Calcium 8.9 mg/dL (8.4-10.2) 64 Phosphorus 4.0 mg/dL (2.5-4.5) 64 Albumin 3.8 g/dL (3.5-4.6) 64 GFR 28 ML/MIN/1.73M2 Low (>59) 64 GFR ( Amer) 34 ML/MIN/1.73M2 Low (>59) 64 GFR Interpretation (SEE NOTE) 64, 68 Rejected Test Reason Cancelled 64 CBC With Auto Diff 08/19/2011 WBC 7.1 K/UL (4.1-11.0) 64 RBC 3.90 M/UL Low (4.00-5.40) 64 HGB 11.4 GM/DL Low (12.0-16.0) 64 HCT 33.3 % Low (36.0-47.0) 64 MCV 85.4 FL (80.0-95.0) 64 MCH 29.2 pg (27.0-32.0) 64 MCHC 34.2 g/dL (32.0-36.0) 64 RDW 15.1 % High (10.5-14.5) 64 PLT 176 K/UL (150-400) 64 MPV 9.4 FL (7.1-10.7) 64 Neut % 59.9 % (35.0-75.0) 64 Lymph % 26.7 % (16.0-52.0) 64 [place] % 9.0 % High (0-8.0) 64 Eos % 3.7 % (0-5.0) 64 Baso % 0.7 % (0-4.0) 64 Neut # 4.2 K/UL (1.8-7.7) 64 Lymph # 1.9 K/UL (1.2-4.8) 64 [place] # 0.6 K/UL (0-0.8) 64 Eos # 0.3 K/UL (0-0.5) 64 Baso # 0.1 K/UL (0-0.2) 64, 69 PTH,Intact W/ CA -RL 05/28/2011 PTH, Intact @ 58.0 pg/mL (12-65) 70, 71 Calcium @ 8.9 mg/dL (8.4-10.2) 70, 72 CBC With Auto Diff 05/28/2011 WBC 4.9 K/UL (4.1-11.0) 70 RBC 4.20 M/UL (4.00-5.40) 70 HGB 12.5 GM/DL (12.0-16.0) 70 HCT 35.5 % Low (36.0-47.0) 70 MCV 84.6 FL (80.0-95.0) 70 MCH 29.7 pg (27.0-32.0) 70 MCHC 35.1 g/dL (32.0-36.0) 70 RDW 15.7 % High (10.5-14.5) 70 PLT 151 K/UL (150-400) 70 MPV 11.6 FL High (7.1-10.7) 70 Neut % 52.0 % (35.0-75.0) 70 Lymph % 35.2 % (16.0-52.0) 70 [place] % 9.7 % High (0-8.0) 70 Eos % 2.4 % (0-5.0) 70 Baso % 0.7 % (0-4.0) 70 Neut # 2.6 K/UL (1.8-7.7) 70 Lymph # 1.7 K/UL (1.2-4.8) 70 [place] # 0.5 K/UL (0-0.8) 70 Eos # 0.1 K/UL (0-0.5) 70 Baso # 0.0 K/UL (0-0.2) 70, 73 Renal Panel 05/28/2011 Sodium 139 mmol/L (136-145) 70 Potassium 4.5 mmol/L (3.6-5.2) 70 Chloride 108 mmol/L (100-108) 70 Co2 19 mmol/L Low (22-31) 70 Anion Gap 12 mmol/L (7-16) 70 Urea Nitrogen 23 mg/dL (7-24) 70 Creatinine 2.5 mg/dL High (0.6-1.0) 70 BUN/Creat Ratio 9.2 RATIO Low (10.0-20.0) 70 Glucose 111 mg/dL High (70-99) 70 Calcium 9.0 mg/dL (8.4-10.2) 70 Phosphorus 2.2 mg/dL Low (2.5-4.5) 70 Albumin 4.2 g/dL (3.5-4.6) 70 GFR 23 ML/MIN/1.73M2 Low (>59) 70 GFR ( Amer) 28 ML/MIN/1.73M2 Low (>59) 70 GFR Interpretation (SEE NOTE) 70, 74 Laboratory test finding 12/04/2010 PTH Intact-LA 61.6 pmol/L 12-65 75, 76 Direct LDL 12/04/2010 Direct LDL @ 103 mg/dL (<130) 77 Renal Panel 12/04/2010 Albumin - LA 3.6 mg/dL 3.5-4.6 75 Calcium - LA 8.8 mg/dL 8.4-10.2 75 Co2 (Carbon Dioxide) - LA 27 mmol/L 22-31 75 Chloride - [place] 106 mmol/L 100-108 75 Creatinine, Serum - [place] N/A mg/dL 0.6-1.0 75 Glucose - [place] 98 mg/dL 70-99 75 Phosphorus-LA 3.1 mg/dL 2.5-4.5 75 Potassium-LA 4.5 mmol/L 3.6-5.2 75 Sodium-Na 143 mmol/L 136-145 75 Urea Nitrogen (BUN) - [place] 19 mg/dL 7-24 75 GFR - LA 37 ML/MIN/1.73M2 Low 59.001-9999 75 GFR Calculation - LA (SEE NOTE) 75, 78 GFR () - LA 44 ML/MIN/1.73M2 Low 59.001-9999 75 Anion Gap - LA 10 mmol/L 7-16 75 Creatinine, Serum 1.7 mg/dL (0.6-1.0) 75 BUN/Creat Ratio - LA 11.2 RATIO 10.0-20.0 75 Lipid Panel 12/04/2010 Cholesterol - LA 168 mg/dL 0-200 75 Triglyceride-LA 403 mg/dL High 30-200 75 HDL Cholesterol - [place] 21 mg/dL Low 40.001-9999 75, 79 Cholesterol/HDL Ratio-LA 8.0 RATIO 75, 80 LDL Cholesterol-LA UNABLE TO CALCUL <SEE NOTE> (<130) 75, 81 mg/dL Laboratory test 12/04/2010 TSH, Ultrasensitive-LA 2.706 mIU/mL 0.360- 4.170 75, 82 finding Urine Culture 11/16/2009 Urine Culture - LA (SEE NOTE) 83, 84 Specimen Description - LA N/A 83 Special Requests - LA N/A 83 Culture Result - LA N/A 83 Report Status - LA N/A 83 Urinalysis With Microscopic-RL 11/16/2009 Color -LA YELLOW 83 Appearance -LA CLOUDY 83 Specific [place] -LA 1.012 1.003-1.030 83 PH Urine -LA 6.0 5.0-7.5 83 Leukocyte Esterase -LA 2+ (Neg) 83 Nitrite -LA NEGATIVE (Neg) 83 Protein Urine-LA NEGATIVE (Neg) 83 Glucose Urine -LA NEGATIVE (Neg) 83 Ketone Urine -LA NEGATIVE (Neg) 83 Urobilinogen -LA 0.2 mg/dL 0-1.0 83 Blood/HGB Urine-RL 3+ (Neg) 83 Urine WBC -LA * 6-10 /HPF (0-5) 83 Urine RBC -LA 0-2 /HPF (0-2) 83 Bacteria -LA 1+ /HPF 83, 85 Fine Gran Cast N/A /LPF 83 WBC Cast N/A /LPF 83 Bilirubin Urine -LA NEGATIVE (Neg) 83 Epithelial Cells -LA 1+ /HPF 83 Direct LDL 11/16/2009 Direct LDL @ 137 mg/dL High (<130) 86 Laboratory test 11/16/2009 Vitamin D 25 Hydroxy 14 ng/mL Low 31-100 87, 88 finding - LA Lipid Panel 11/16/2009 Cholesterol - LA 214 mg/dL (0-200) 87 Triglyceride-LA 314 mg/dL High 30-200 87, 89 HDL Cholesterol - LA 33 mg/dL (>40) 87, 90 Cholesterol/HDL Ratio-LA 6.5 RATIO 87, 91 LDL Cholesterol-LA UNABLE TO CALCUL <SEE NOTE> (<130) 87, 92 mg/dL Laboratory test 11/16/2009 TSH, Ultrasensitive-LA 2.210 mIU/mL 0.360- 4.170 87, 93 finding Magnesium - LA 1.9 mg/dL 1.7-2.4 87, 94 CMP 11/16/2009 Sodium-Na 146 mmol/L (136-145) 87 Potassium-LA 4.9 mmol/L 3.6-5.2 87 Chloride - LA 105 mmol/L 100-108 87 Co2 (Carbon Dioxide) - LA 27 mmol/L 22-31 87 Glucose - LA 98 mg/dL 70-99 87, 95 Calcium - LA 9.7 mg/dL 8.4-10.2 87 Urea Nitrogen (BUN) - [place] 18 mg/dL 7-24 87 Creatinine, Serum 1.6 mg/dL (0.6-1.0) 87 BUN/Creat Ratio - LA 11.3 RATIO 10.0-20.0 87 Anion Gap - LA 14 mmol/L 7-16 87 Total Protein - LA 7.8 g/dL 6.4-8.2 87 Albumin - LA 4.1 mg/dL 3.5-4.6 87 Alt (SGPT) Liver Enzyme -LA 21 U/L (25-69) 87 Ast (Sgot) Liver Enzyme - LA 14 U/L 11-39 87 Bilirubin, Total - LA 0.4 mg/dL 0.0-1.0 87 Alkaline Phosphatase - LA 42 U/L Low 50-136 87 Globulin - LA 3.7 g/dL 2.7-4.3 87 Albumin Globulin Ratio-LA 1.1 RATIO 87 GFR - LA 39 ML/MIN/1.73M2 (>59) 87 GFR () - LA 48 ML/MIN/1.73M2 Low 59.001-9999 87 GFR Calculation - LA (SEE NOTE) 87, 96 CBC With Auto Diff 11/16/2009 WBC-LA 9.1 K/UL 4.1-11.0 87 RBC -LA 4.48 M/UL 4.00-5.40 87 Hemoglobin - LA 12.8 GM/DL 12.0-16.0 87 Hematocrit - LA 38.2 % 36.0-47.0 87 MCV -LA 85.2 FL 80.0-95.0 87 MCH -LA 28.6 pg 27.0-32.0 87 MCHC -LA 33.5 g/dL 32.0-36.0 87 RDW -LA 14.6 % (10.5-14.5) 87 Platelet Count 201 K/ul 150-400 87 MPV -LA 9.8 FL 7.1-10.7 87 Dtype -LA AUTOMATED DIFFER <SEE NOTE> 87, 97 Neutrophil % -LA 67.5 % 35.0-75.0 87 Lymphocytes % -LA 21.8 % 16.0-52.0 87 Monocytes % -LA 8.8 % High 0-8.0 87 Eosinophils % -LA 1.5 % 0-5.0 87 Basophils % -LA 0.4 % 0-4.0 87 Absoulte Neutrophils -LA 6.1 K/UL 1.8-7.7 87 Absolute Lymphocytes -LA 2.0 K/UL 1.2-4.8 87 Absolute Monocytes -LA 0.8 K/UL 0-0.8 87 Absolute Eosinophils -LA 0.1 K/UL 0-0.5 87 Absolute Basophils -LA 0.0 K/UL 0-0.2 87, 98 CBC With Auto Diff 10/06/2008 WBC-LA 7.6 K/UL 4.1-11.0 99 RBC -LA 4.86 M/UL 4.00-5.40 99 Hemoglobin - LA 13.3 GM/DL (12.0-16.0) 99 Hematocrit - LA 39.1 % (36.0-47.0) 99 MCV -LA 80.4 FL 80.0-95.0 99 MCH -LA 27.2 pg 27.0-32.0 99 MCHC -LA 33.9 g/dL 32.0-36.0 99 RDW -LA 14.9 % High 10.5-14.5 99 Platelet Count 199 K/ul 150-400 99 MPV -LA 10.4 FL 7.1-10.7 99 Dtype -LA AUTOMATED DIFFER <SEE NOTE> 99, 100 Neutrophil % -LA 62.0 % 35.0-75.0 99 Lymphocytes % -LA 23.8 % 16.0-52.0 99 Monocytes % -LA 10.2 % High 0-8.0 99 Eosinophils % -LA 3.5 % 0-5.0 99 Basophils % -LA 0.5 % 0-4.0 99 Absoulte Neutrophils -LA 4.7 K/UL 1.8-7.7 99 Absolute Lymphocytes -LA 1.8 K/UL 1.2-4.8 99 Absolute Monocytes -LA 0.8 K/UL 0-0.8 99 Absolute Eosinophils -LA 0.3 K/UL 0-0.5 99 Absolute Basophils -LA 0.0 K/UL 0-0.2 99, 101 CMP 10/06/2008 Sodium-Na 143 mmol/L 136-145 99 Potassium-LA 5.2 mmol/L 3.6-5.2 99 Chloride - LA 105 mmol/L 100-108 99 Co2 (Carbon Dioxide) - LA 28 mmol/L 22-31 99 Glucose - LA 106 mg/dL (70-110) 99, 102 Calcium - LA 9.5 mg/dL 8.4-10.2 99 Urea Nitrogen (BUN) - [place] 14 mg/dL 7-24 99 Creatinine, Serum 1.3 mg/dL High 0.6-1.0 99 BUN/Creat Ratio - LA 10.8 RATIO 10.0-20.0 99 Anion Gap - LA 10 mmol/L 7-16 99 Total Protein - LA 7.5 g/dL 6.4-8.2 99 Albumin - [place] 4.1 mg/dL 3.5-4.6 99 Alt (SGPT) Liver Enzyme -LA 22 U/L Low 25-69 99 Ast (Sgot) Liver Enzyme - LA 13 U/L 11-39 99 Bilirubin, Total - LA 0.5 mg/dL 0.0-1.0 99 Alkaline Phosphatase - LA 61 U/L 50-136 99 Globulin - LA 3.4 g/dL 2.7-4.3 99 Albumin Globulin Ratio-LA 1.2 RATIO 99 GFR - LA 50 ML/MIN/1.73M2 (>59) 99 GFR () - LA 61 ML/MIN/1.73M2 59.001-9999 99 GFR Calculation - LA (SEE NOTE) 99, 103 Lipid Panel 10/06/2008 Cholesterol - LA 206 mg/dL (0-200) 99 Triglyceride-LA 217 mg/dL High 30-200 99 HDL Cholesterol - [place] 31 mg/dL (>40) 99, 104 Cholesterol/HDL Ratio-LA 6.6 RATIO 99, 105 LDL Cholesterol-LA 132 mg/dL (<130) 99, 106 CBC With Auto Diff 02/04/2007 WBC-LA 5.8 K/UL 4.1-11.0 107 RBC -LA 4.18 M/UL 4.00-5.40 107 Hemoglobin - [place] 12.5 GM/DL 12.0-16.0 107 Hematocrit - [place] 36.4 % 36.0-47.0 107 MCV -LA 87.2 FL 80.0-95.0 107 MCH -LA 29.9 pg 27.0-32.0 107 MCHC -LA 34.3 g/dL 32.0-36.0 107 RDW -LA 13.7 % 10.5-14.5 107 Platelet Count-LA 194 K/UL 150-400 107 MPV -LA 10.6 FL 7.1-10.7 107 Dtype -LA AUTOMATED DIFFER <SEE NOTE> 107, 108 Neutrophil % -LA 55.6 % 35.0-75.0 107 Lymphocytes % -LA 33.4 % 16.0-52.0 107 Monocytes % -LA 7.6 % 0-8.0 107 Eosinophils % -LA 2.5 % 0-5.0 107 Basophils % -LA 0.9 % 0-4.0 107 Absoulte Neutrophils -LA 3.2 K/UL 1.8-7.7 107 Absolute Lymphocytes -LA 1.9 K/UL 1.2-4.8 107 Absolute Monocytes -LA 0.4 K/UL 0-0.8 107 Absolute Eosinophils -LA 0.1 K/UL 0-0.5 107 Absolute Basophils -LA 0.1 K/UL 0-0.2 107 Laboratory test 02/04/2007 TSH, Ultrasensitive-LA 1.900 mIU/mL 0.340- 5.600 107 finding Lipid Panel 07/29/2006 Cholesterol - [place] 212 mg/dL High 0-200 107 Triglyceride-LA 232 mg/dL High 30-200 107 HDL Cholesterol - [place] 32 mg/dL 0-39 107, 109 Cholesterol/HDL Ratio-LA 6.6 RATIO 107, 110 LDL Cholesterol-LA 134 mg/dL High 0-129 107, 111 Basic (BMP) 07/29/2006 Sodium-Na 140 mmol/L 136-145 107 Potassium-LA 4.3 mmol/L 3.6-5.2 107 Chloride - [place] 103 mmol/L 100-108 107 Co2 (Carbon Dioxide) - [place] 28 mmol/L 22-31 107 Glucose - [place] 90 mg/dL 70-110 107 Calcium - [place] 9.4 mg/dL 8.4-10.2 107 Urea Nitrogen (BUN) - [place] 12 mg/dL 7-24 107 Creatinine, Serum 1.1 mg/dL (0.6-1.0) 107 BUN/Creat Ratio - LA 10.9 RATIO (10.0-20.0) 107 Anion Gap - LA 10 mmol/L 7-16 107 GFR - [place] 62 ML/MIN/1.7 (>59) 107 GFR () - [place] 75 ML/MIN/1.7 (>59) 107 CBC With Auto Diff 07/29/2006 WBC-LA 8.6 K/UL 4.1-11.0 107 RBC -LA 4.67 M/UL 4.00-5.40 107 Hemoglobin - [place] 14.1 GM/DL 12.0-16.0 107 Hematocrit - [place] 40.7 % 36.0-47.0 107 MCV -LA 87.2 FL 80-95 107 MCH -LA 30.1 pg 27.0-32.0 107 MCHC -LA 34.5 g/dL 32.0-36.0 107 RDW -LA 13.7 % 10.5-14.5 107 Platelet Count-LA 225 K/UL (150-400) 107 MPV -LA 10.5 FL 7.1-10.7 107 Dtype -LA AUTOMATED DIFFER <SEE NOTE> 107, 112 Neutrophil % -LA 65.0 % 35.0-75.0 107 Lymphocytes % -LA 23.3 % 16.0-52.0 107 Monocytes % -LA 7.6 % 0.0-8.0 107 Eosinophils % -LA 3.6 % 0.0-4.0 107 Basophils % -LA 0.5 % 0.0-4.0 107 Absoulte Neutrophils -LA 5.6 K/UL 1.8-7.7 107 Absolute Lymphocytes -LA 2.0 K/UL 1.2-4.8 107 Absolute Monocytes -LA 0.6 K/UL 0.0-0.8 107 Absolute Eosinophils -LA 0.3 K/UL 0.0-0.5 107 Absolute Basophils -LA 0.0 K/UL 0.0-0.2 107 Laboratory test 07/29/2006 TSH, Ultrasensitive-LA 2.540 mIU/mL 0.340- 5.60 107 finding Alt (SGPT) Liver Enzyme -LA 31 U/L 25-69 107 Ast (Sgot) Liver Enzyme - [place] 17 U/L 11-39 107 CBC 03/21/2005 White Blood Cells 7.9 x10*3 [...] 03/21/2005 Cholesterol, Total 225 mg/dL High 120-200 113 Triglycerides 210 mg/dL 114 High Density Lipoprotein (HDL) Cholesterol 42 mg/dL 40-60 Low Density Lipoprotein (LDL) Cholesterol 141 mg/dL 115 LDL/HDL Cholesterol 3.4 116 Chol/HDL Cholesterol 5.4 117 Laboratory test finding 03/21/2005 GFR (Calculated) 56 118 Laboratory test finding 08/22/2003 Helicobacter Pylori (H. [...] 0.3 x10*3 Basophil Absolute 0.0 x10*3 1 Unless otherwise specified, testing performed by [email or web address] [address] [place] [id number] 2 Updated reference range on new analyzer 3 Updated reference range on new analyzer 4 21 Electrolytes confirmed by repeat. 5 Concerning GFR Guidelines for Americans: Normal function or mild renal disease, if clinically at risk: >/=60 mL/min Moderately decreased: 30-59 Severely decreased: 15-29 Renal failure: <15 6 Concerning GFR Guidelines: Normal function or mild [...] drugs that are excreted by the kidneys. 7 Updated reference range on new analyzer 8 Unless otherwise specified, testing performed by [email or web address] [address] [place] [address] 9 5.5 No visible hemolysis. 10 Concerning GFR Guidelines for Americans: Normal function or mild renal disease, if clinically at risk: >/=60 mL/min Moderately decreased: 30-59 Severely decreased: 15-29 Renal failure: <15 11 Concerning GFR Guidelines: Normal function or mild [...] drugs that are excreted by the kidneys. 12 Per NCEP ATP III Guidelines: Results lower than 40 mg/dL are suggestive of increased risk for coronary artery disease. Results > or=to 60 mg/dL are considered a negative risk factor. 13 Per NCEP ATP III Guidelines: Normal Population <130 Patients with medical conditions: CHD/DM Optimal: <100 Borderline high: 130-159 High: 160-189 Very high: >189 14 Per NCEP ATP III Guidelines: Results lower than 40 mg/dL are suggestive of increased risk for coronary artery disease. Results > or=to 60 mg/dL are considered a negative risk factor. 15 Per NCEP ATP III Guidelines: Normal Population <130 Patients with medical conditions: CHD/DM Optimal: <100 Borderline high: 130-159 High: 160-189 Very high: >189 16 Concerning GFR Guidelines for Americans: Normal function or mild renal disease, if clinically at risk: >/=60 mL/min Moderately decreased: 30-59 Severely decreased: 15-29 Renal failure: <15 17 Concerning GFR Guidelines: Normal function or mild [...] drugs that are excreted by the kidneys. 18 Lutenizing Hormone Female Normal Values: Mid-Follicular: 2.1-10.9 mIU/mL Mid-cycle Peak: 19.2-103.0 mIU/mL Mid-Luteal: 1.2-12.9 mIU/mL Post-menopausal:10.9-58.6 mIU/mL 19 Unless otherwise specified, testing performed by [email or web address] [address] [place] [id number] 20 FSH Female Normal Values: Mid-Follicular: 3.9-8.8 mIU/mL Mid-cycle Peak: 4.5-22.5 mIU/mL Mid-Luteal: 1.8-5.1 mIU/mL Post-menopausal:16.7-113.6 mIU/mL 21 5.5 No visible hemolysis. 22 2.8 Consistent with previous result(s). 23 Concerning GFR Guidelines for Americans: Normal function or mild renal disease, if clinically at risk: >/=60 mL/min Moderately decreased: 30-59 Severely decreased: 15-29 Renal failure: <15 24 Concerning GFR Guidelines: Normal function or mild [...] drugs that are excreted by the kidneys. 25 Concerning GFR Guidelines for Americans: Normal [...] that are excreted by the kidneys. 27 Microbiology results SOURCE URINE COLONY COUNT >100,000 [...] TOBRAMYCIN <=4 S TRIMETHOPRIM/SULFAMETHOXAZ <=2/38 S S=Sensitive;I=Indeterminate;R=Resistant 28 This sample is drawn by:BRIAN. 29 Concerning GFR Guidelines for Americans: Normal function or mild renal disease, if clinically at risk: >/=60 mL/min Moderately decreased: 30-59 Severely decreased: 15-29 Renal failure: <15 30 Concerning GFR Guidelines: Normal function or mild [...] drugs that are excreted by the kidneys. 31 Per NCEP ATP III Guidelines: Results lower than 40 mg/dL are suggestive of increased risk for coronary artery disease. Results > or=to 60 mg/dL are considered a negative risk factor. 32 Per NCEP ATP III Guidelines: Normal Population <130 Patients with medical conditions: CHD/DM Optimal: <100 Borderline high: 130-159 High: 160-189 Very high: >189 33 This sample is drawn by: 34 Per NCEP ATP III Guidelines: Results lower than 40 mg/dL are suggestive of increased risk for coronary artery disease. Results > or=to 60 mg/dL are considered a negative risk factor. 35 Per NCEP ATP III Guidelines: Normal Population <130 Patients with medical conditions: CHD/DM Optimal: <100 Borderline high: 130-159 High: 160-189 Very high: >189 36 This sample is drawn by:CINDY 37 Per NCEP ATP III Guidelines: Results lower than 40 mg/dL are suggestive of increased risk for coronary artery disease. Results > or=to 60 mg/dL are considered a negative risk factor. 38 Per NCEP ATP III Guidelines: Normal Population <130 Patients with medical conditions: CHD/DM Optimal: <100 Borderline high: 130-159 High: 160-189 Very high: >189 39 This sample is drawn by:BRIAN.FAX RESULTS TO @[phone]. 40 Concerning GFR Guidelines: Normal function or mild [...] drugs that are excreted by the kidneys. 41 Concerning GFR Guidelines for Americans: Normal function or mild renal disease, if clinically at risk: >/=60 mL/min Moderately decreased: 30-59 Severely decreased: 15-29 Renal failure: <15 42 Unless otherwise specified, testing performed by [email or web address] [address] [place] [phone] 43 This sample is drawn by:NIRMAL 44 Per NCEP ATP III Guidelines: Results lower than 40 mg/dL are suggestive of increased risk for coronary artery disease. Results > or=to 60 mg/dL are considered a negative risk factor. 45 Per NCEP ATP III Guidelines: Optimal: <100 Near optimal: 100-129 Borderline high: 130-159 High: 160-189 Very high: >189 46 Concerning GFR Guidelines for Americans: Normal function or mild renal disease, if clinically at risk: >/=60 mL/min Moderately decreased: 30-59 Severely decreased: 15-29 Renal failure: <15 47 Concerning GFR Guidelines: Normal function or mild [...] drugs that are excreted by the kidneys. 48 This sample is drawn by:CINDY 49 Concerning GFR Guidelines for Americans: Normal function or mild renal disease, if clinically at risk: >/=60 mL/min Moderately decreased: 30-59 Severely decreased: 15-29 Renal failure: <15 50 Concerning GFR Guidelines: Normal function or mild [...] drugs that are excreted by the kidneys. 51 Per NCEP ATP III Guidelines: Results lower than 40 mg/dL are suggestive of increased risk for coronary artery disease. Results > or=to 60 mg/dL are considered a negative risk factor. 52 Per NCEP ATP III Guidelines: Optimal: <100 Near optimal: 100-129 Borderline high: 130-159 High: 160-189 Very high: >189 53 This sample is drawn by:BRIAN. 54 Per NCEP ATP III Guidelines: Results lower than 40 mg/dL are suggestive of increased risk for coronary artery disease. Results > or=to 60 mg/dL are considered a negative risk factor. 55 Per NCEP ATP III Guidelines: Optimal: <100 Near optimal: 100-129 Borderline high: 130-159 High: 160-189 Very high: >189 56 Concerning GFR Guidelines for Americans: Normal function or mild renal disease, if clinically at risk: >/=60 mL/min Moderately decreased: 30-59 Severely decreased: 15-29 Renal failure: <15 57 Concerning GFR Guidelines: Normal function or mild [...] drugs that are excreted by the kidneys. 58 COPY TO NEPHROLOGY. [phone] FAX This sample is drawn by:CINDY [phone] 60 NORMAL KIDNEY FUNCTION OR MILD DISEASE - GFR >OR=60 CHRONIC KIDNEY DISEASE - GFR 15 - 59 RENAL FAILURE - GFR <15 Est. GFR calculation based on the MDRD study equation, which assumes a steady state for creatinine. Est. GFR should not be used for medication dosing. Unless otherwise specified, testing performed by [facility] [address] [place] [id number] 59 Unless otherwise specified, testing performed by [facility] [address] [place] [address] 62 NOTE: New reporting units and reference range effective 2010 63 Unless otherwise specified, testing performed by [facility] [address] [place] [address] 64 This sample is drawn by:MEGAN 65 NOTE: New reporting units and reference range effective 2010 66 Unless otherwise specified, testing performed by [email or web address] [address] [place] [address] 67 FASTING 68 NORMAL KIDNEY FUNCTION OR MILD DISEASE - GFR >OR=60 CHRONIC KIDNEY DISEASE - GFR 15 - 59 RENAL FAILURE - GFR <15 Est. GFR calculation based on the MDRD study equation, which assumes a steady state for creatinine. Est. GFR should not be used for medication dosing. Unless otherwise specified, testing performed by [facility] [address] [place] [address] 69 Unless otherwise specified, testing performed by [facility] [address] [place] [address] 70 This sample is drawn by: 71 NOTE: New reporting units and reference range effective 2010 72 Unless otherwise specified, testing performed by [facility] [address] [place] [address] 73 Unless otherwise specified, testing performed by [facility] [address] [place] [address] 74 NORMAL KIDNEY FUNCTION OR MILD DISEASE - GFR >OR=60 CHRONIC KIDNEY DISEASE - GFR 15 - 59 RENAL FAILURE - GFR <15 Est. GFR calculation based on the MDRD study equation, which assumes a steady state for creatinine. Est. GFR should not be used for medication dosing. Unless otherwise specified, testing performed by [facility] [place] [address] 75 FAX RESULTS TO @[phone].This sample is drawn by:BRIAN. 76 NOTE: New reporting units and reference range effective 2010 Unless otherwise specified, testing performed by [facility] [place] [address] 77 PER NCEP ATP III GUIDELINES: OPTIMAL < 100 NEAR OPTIMAL 100 - 129 BORDERLINE HIGH 130 - 159 HIGH 160 - 189 VERY HIGH > 189 78 NORMAL KIDNEY FUNCTION OR MILD DISEASE - GFR >OR=60 CHRONIC KIDNEY DISEASE - GFR 15 - 59 RENAL FAILURE - GFR <15 Est. GFR calculation based on the MDRD study equation, which assumes a steady state for creatinine. Est. GFR should not be used for medication dosing. Unless otherwise specified, testing performed by [facility] [place] [address] 79 PER NCEP ATP III GUIDELINES: RESULTS LOWER THAN 40 MG/DL ARE SUGGESTIVE OF INCREASED RISK FOR CORONARY ARTERY DISEASE. RESULTS > OR=TO 60 MG/DL ARE CONSIDERED A NEGATIVE RISK FACTOR. 80 INTERPRETATION OF CHOL-HDL RATIO CHD RISK FEMALE MALE VERY HIGH >8.3 >14.3 HIGH 5.6- 8.3 6.7- 14.3 AVERAGE 3.7- 5.6 4.0- 6.7 BELOW AVERAGE 2.5- 3.7 2.7- 4.0 PROTECTED <2.5 <2.7 81 UNABLE TO CALCULATE VALID LDL DUE TO INTERFERENCE FROM ELEVATED TRIGLYCERIDES (GREATER THAN 300 MG/DL). SEE RESULT FOR DIRECT LDL. Unless otherwise specified, testing performed by [facility] [address] 82 Unless otherwise specified, testing performed by [facility] [address] [place] [address] 83 This sample is drawn by:CT 84 SPECIMEN DESCRIPTION URINE, COLLECTION METHOD NOT SPECIFIED CULTURE RESULTS NO GROWTH REPORT STATUS FINAL 11/17/2009 Unless otherwise specified, testing performed by [facility] [address] [place] [address] 85 Unless otherwise specified, testing performed by [facility] [place] [address] 86 PER NCEP ATP III GUIDELINES: OPTIMAL < 100 NEAR OPTIMAL 100 - 129 BORDERLINE HIGH 130 - 159 HIGH 160 - 189 VERY HIGH > 189 87 FASTING This sample is drawn by:CT 88 A REVIEW OF THE LITERATURE SUGGESTS THE FOLLOWING RANGES FOR THE CLASSIFICATION OF 25-OH VITAMIN D STATUS: VITAMIN D STATUS 25-OH VITAMIN D DEFICIENCY <20 NG/ML INSUFFICIENCY 20-30 NG/ML SUFFICIENCY 31 - 100 NG/ML TOXICITY > 100 NG/ML A PEDIATRIC REFERENCE RANGE HAS NOT BEEN ESTABLISHED USING THIS METHOD. (UPDATED RANGES EFFECTIVE 10/05/09) Unless otherwise specified, testing performed by [facility] [address] 89 FASTING 90 PER NCEP ATP III GUIDELINES: RESULTS LOWER THAN 40 MG/DL ARE SUGGESTIVE OF INCREASED RISK FOR CORONARY ARTERY DISEASE. RESULTS > OR=TO 60 MG/DL ARE CONSIDERED A NEGATIVE RISK FACTOR. 91 INTERPRETATION OF CHOL-HDL RATIO CHD RISK FEMALE MALE VERY HIGH >8.3 >14.3 HIGH 5.6- 8.3 6.7- 14.3 AVERAGE 3.7- 5.6 4.0- 6.7 BELOW AVERAGE 2.5- 3.7 2.7- 4.0 PROTECTED <2.5 <2.7 92 UNABLE TO CALCULATE VALID LDL DUE TO INTERFERENCE FROM ELEVATED TRIGLYCERIDES (GREATER THAN 250 MG/DL). SEE RESULT FOR DIRECT LDL. Unless otherwise specified, testing performed by [facility] [address] [place] [address] 93 Unless otherwise specified, testing performed by [facility] [place] [address] 94 Unless otherwise specified, testing performed by [facility] [place] [address] 95 FASTING 96 NORMAL KIDNEY FUNCTION OR MILD DISEASE - GFR >OR=60 CHRONIC KIDNEY DISEASE - GFR 15 - 59 RENAL FAILURE - GFR <15 Est. GFR calculation based on the MDRD study equation, which assumes a steady state for creatinine. Est. GFR should not be used for medication dosing. Unless otherwise specified, testing performed by [facility] [place] [address] 97 AUTOMATED DIFFERENTIAL 98 Unless otherwise specified, testing performed by [facility] [address] [place] [address] 99 FASTING This sample is drawn by: DB 100 AUTOMATED DIFFERENTIAL 101 Unless otherwise specified, testing performed by [facility] [place] [address] 102 FASTING 103 NORMAL KIDNEY FUNCTION OR MILD DISEASE - GFR >OR=60 CHRONIC KIDNEY DISEASE - GFR 15 - 59 RENAL FAILURE - GFR <15 Est. GFR calculation based on the MDRD study equation, which assumes a steady state for creatinine. Est. GFR should not be used for medication dosing. Unless otherwise specified, testing performed by [facility] [place] [address] 104 PER NCEP ATP III GUIDELINES: RESULTS LOWER THAN 40 MG/DL ARE SUGGESTIVE OF INCREASED RISK FOR CORONARY ARTERY DISEASE. RESULTS > OR=TO 60 MG/DL ARE CONSIDERED A NEGATIVE RISK FACTOR. 105 INTERPRETATION OF CHOL-HDL RATIO CHD RISK FEMALE MALE VERY HIGH >8.3 >14.3 HIGH 5.6- 8.3 6.7- 14.3 AVERAGE 3.7- 5.6 4.0- 6.7 BELOW AVERAGE 2.5- 3.7 2.7- 4.0 PROTECTED <2.5 <2.7 106 PER NCEP ATP III GUIDELINES: OPTIMAL < 100 NEAR OPTIMAL 100 - 129 BORDERLINE HIGH 130 - 159 HIGH 160 - 189 VERY HIGH > 189 Unless otherwise specified, testing performed by [email or web address] [address] [place] [id number] 107 FASTING 108 AUTOMATED DIFFERENTIAL 109 PER NCEP ATP III GUIDELINES: RESULTS LOWER THAN 40 MG/DL ARE SUGGESTIVE OF INCREASED RISK FOR CORONARY ARTERY DISEASE. RESULTS > OR=TO 60 MG/DL ARE CONSIDERED A NEGATIVE RISK FACTOR. 110 INTERPRETATION OF CHOL-HDL RATIO CHD RISK FEMALE MALE VERY HIGH >8.3 >14.3 HIGH 5.6- 8.3 6.7- 14.3 AVERAGE 3.7- 5.6 4.0- 6.7 BELOW AVERAGE 2.5- 3.7 2.7- 4.0 PROTECTED <2.5 <2.7 111 PER NCEP ATP III GUIDELINES: OPTIMAL < 100 NEAR OPTIMAL 100 - 129 BORDERLINE HIGH 130 - 159 HIGH 160 - 189 VERY HIGH > 189 112 AUTOMATED DIFFERENTIAL 113 Cholesterol Risk Levels (NIH) Recommended: under 200 mg/dl Borderline : 200-239 mg/dl High Risk : Above 240 mg/dl . 114 Abnormal Flag='AB' Triglyceride Risk Levels: Normal : <150 mg/dl Borderline : 150-199 mg/dl High : 200-499 mg/dl Very High : >500 mg/dl . 115 Abnormal Flag='AB' The National Cholesterol Education Program recommends the following ranges for LDL Cholesterol: Optimal under 100 mg/dl Near or above Optimal 100 - 129 mg/dl Borderline High 130 - 159 mg/dl High 160 - 189 mg/dl Very High above 190 mg/dl . 116 LDL/HDL Risk Ratio Levels MALE FEMALE 1/2 X Average 1.00 1.47 Average 3.55 3.22 2 X Average 6.25 5.03 3 X Average 7.99 6.14 . 117 Abnormal Flag='AB' CHOL/HDL Risk Ratio Levels MALE FEMALE 1/2 X Average 3.4 3.3 Average 5.0 4.4 2 X Average 9.5 7.0 3 X Average 24.0 11.0 . 118 Abnormal Flag='AB' mL/min/1.73m2 . Normal Function or [...] Procedures Date CPT Code Description Status 05/09/2017 60627 ECHO Transthoracis 2D W Spectral Doppler Completed 08/23/2016 29974 Measure Blood Oxygen Level Single Determination Completed 11/17/2009 15719 Admin Of Inj (Therapeutic Phrophylactic Or Diagnostic Completed Subq Inj 05/03/2002 36699 Electrocardiogram Complete Completed 08/04/2001 34113 Airway Inhalation Treatment Completed 03/02/2001 38766 Measure Blood Oxygen Level Single Determination Completed 03/02/2001 92195 Airway Inhalation Treatment Completed 11/27/2000 94669 Electrocardiogram Complete Completed Encounters Type Date Location Provider CPT E/M Dx Office Visit 09/22/2017 2:20[place] [address] J15.9 N18.4 I10 J45.41 F17.211 Office Visit 07/24/2017 10:00a Regi Manuel, RN [facility] 20439 I10 D64.9 R51 N18.4 Office Visit 05/23/2017 10:40a Regi Manuel RN [facility] 03852 G45.9 E66.01 D64.9 R51 M79.604 M79.605 F41.1 Office Visit 04/23/2017 10:40a Regi Manuel RN [place] [facility] [address]494 E66.01 M79.1 R11.2 E21.2 D64.9 P96.0 R00.2 G45.9 Office Visit 03/03/2017 10:20[place] [address] J01.10 J45.41 E55.9 F17.211 Office Visit 01/02/2017 1:00p Regi Manuel RN MS [facility] 72739 E55.9 J06.9 J02.9 Office Visit 11/08/2016 9:00a Regi Manuel, HANSEL MS [facility] [address]59 Z00.00 J45.40 N18.4 G25.81 F41.1 E78.2 I10 M62.89 D50.9 E55.9 F33.9 R10.11 Office Visit 10/15/2016 1:00p [place] [address] J45.40 F17.210 R06.02 Office Visit 09/11/2016 3:20[place] [address] J45.40 F17.210 Office Visit 08/28/2016 3:30p Regi Manuel RN [facility] 41632 R10.11 Office Visit 08/23/2016 1:40p Regi Manuel RN [facility] 48403 R06.02 Office Visit 08/08/2016 1:20p Regi Manuel RN [facility] 33256 R10.11 N18.4 G25.81 F41.1 E78.2 I10 J45.998 J45.40 Office Visit 05/15/2016 2:40[place] [address] N18.4 N95.1 F33.9 E78.2 Office Visit 03/07/2016 11:20[place] [address] M54.31 Office Visit 11/23/2015 8:00a Regi Manuel RN MS [facility] 12577 F41.1 F33.0 I10 J20.9 G25.81 D50.9 Office Visit 10/13/2015 3:20p Regi Manuel RN [facility] 00540 R31.9 Office Visit 10/09/2015 8:40[place] [address] R51 Office Visit 09/07/2015 8:00a Regi Manuel RN [facility] 30017 F33.0 F41.1 I10 Office Visit 08/24/2015 11:40a Regi aMnuel RN [facility] 15596 F33.0 F41.1 Office Visit 06/23/2015 3:00p Regi Manuel RN MS [facility] 17105 401.1 Office Visit 05/23/2015 10:00[place] [address] 724.3 724.2 401.1 281.1 280.9 272.2 Office Visit 02/15/2015 10:20a Regi Manuel RN [facility] 31145 401.1 272.2 327.23 386.11 704.00 Office Visit 06/01/2014 8:40a Regi Manuel RN [facility] 37348 401.1 278.01 272.2 346.00 588.9 493.00 719.47 789.06 Office Visit 10/14/2013 9:00a Regi Manuel RN [facility] 73487 V70.0 278.01 272.2 401.1 281.9 959.5 784.0 Office Visit 09/28/2013 12:20[place] [address] 461.0 493.00 Office Visit 02/10/2013 8:00a Regi Manuel RN [facility] 25623 388.70 380.4 386.11 278.01 272.2 588.9 Office Visit 01/20/2013 10:40a Regi Manuel RN [facility] 93997 388.70 381.4 Office Visit 01/14/2013 8:20a Regi Manuel RN [facility] 50716 401.1 272.2 278.01 305.1 724.5 588.9 Office Visit 12/22/2012 9:00a Regi Manuel RN [facility] 79906 386.11 780.4 305.1 Office Visit 2012 2:30[place] [address] 780.4 588.9 Office Visit 10/15/2012 8:00a Regi Manuel, HANSEL MS [facility] 24341 585.3 278.01 790.21 401.1 272.2 493.00 729.5 Office Visit 04/16/2012 9:20a Regi Manuel RN MS [facility] 43116 695.3 729.5 530.81 307.42 401.1 Office Visit 03/03/2012 1:00p Regi Manuel RN MS [facility] 47676 782.1 695.3 729.5 Office Visit 01/14/2012 11:00a Regi Manuel RN [facility] 55237 V70.0 585.3 305.1 278.01 914.0 784.0 V74.1 307.42 V06.1 V04.89 Office Visit 09/30/2011 4:45p [place] [address] 466.0 493.00 530.11 Office Visit 09/06/2011 9:40a Regi Manuel RN [facility] 70350 305.1 585.3 790.21 Office Visit 12/20/2010 10:40a Regi Manuel RN [facility] 76302 369.8 053.9 333.94 Office Visit 10/24/2010 10:15a Regi Manuel RN [facility] 08273 465.9 Office Visit 2009 11:00a Regi Manuel RN MS [facility] 86674 599.70 465.9 Office Visit 11/16/2009 9:30a Regi Manuel RN MS [facility] 54994 788.43 V70.0 333.94 724.3 V17.49 V41.1 Office Visit 08/09/2009 1:00p Regi Manuel RN [facility] 41965 461.0 466.0 Office Visit 05/26/2009 1:50p [place] [address] 782.1 Office Visit 02/21/2009 10:15a Regi Manuel RN [facility] 36964 476.0 305.1 Office Visit 11/07/2008 9:00a Regi Manuel RN [facility] 84007 787.20 305.1 Office Visit 10/31/2008 4:15[place] [address] 462 305.1 Office Visit 10/06/2008 9:00a Regi Manuel RN [facility] 82479 401.1 272.2 493.00 381.81 625.3 Office Visit 02/24/2008 9:15a Regi Manuel RN [facility] 74046 401.1 327.52 381.81 Office Visit 09/08/2007 9:00a Regi Manuel RN [facility] 97401 558.9 386.11 Office Visit 03/25/2007 11:15a Regi Manuel RN [facility] 66417 V70.0 381.81 493.10 401.1 305.1 Office Visit 02/09/2007 1:45p Regi Manuel RN [facility] 97363 464.20 305.1 Office Visit 02/04/2007 9:15a Regi Manuel RN [facility] 64205 476.0 305.1 307.42 Office Visit 01/23/2007 10:45[place] [address] 462 Office Visit 10/07/2006 2:45p Regi Manuel RN [facility] 84671 465.9 305.1 V04.81 Office Visit 07/29/2006 3:00p Regi Manuel RN [facility] 19036 401.1 530.81 493.00 305.1 719.42 Office Visit 04/28/2006 12:45[place] [address] 466.0 493.00 Office Visit 02/18/2006 8:40a Regi Manuel RN [facility] 30386 466.0 786.2 Office Visit 02/12/2006 8:00a Regi Manuel RN [place] [employer] 77511 466.0 786.2 Office Visit 03/20/2005 6:20[place] [address] 401.1 493.00 530.81 Office Visit 01/09/2005 6:50p [place] [address] 493.00 401.1 Office Visit 12/12/2004 5:40[place] [address] 401.1 530.11 692.9 Office Visit 11/14/2004 5:20[place] [address] 401.1 493.00 278.00 V74.1 Office Visit 10/03/2004 5:20[place] [address] 401.1 493.00 V04.81 Office Visit 08/29/2004 5:00[place] [address] 401.1 461.0 Office Visit 08/01/2004 4:40[place] [address] 401.9 530.81 Office Visit 04/18/2004 4:10p [place] [address] 401.1 493.00 278.00 Office Visit 03/14/2004 5:30[place] [address] 401.1 493.00 Office Visit 02/15/2004 6:10p [place] [address] 401.1 493.00 530.81 Office Visit 01/25/2004 10:40a Regi Manuel RN [facility] 25014 462 Office Visit 01/11/2004 6:40[place] [address] 493.00 784.0 401.1 Office Visit 11/16/2003 6:50[place] [address] 401.1 789.00 530.81 Office Visit 09/21/2003 4:40[place] [address] 401.1 784.0 Office Visit 08/22/2003 4:10p [place] [address] 789.06 578.1 Office Visit 07/20/2003 4:50p [place] [address] 493.00 401.1 789.06 Office Visit 06/22/2003 4:40[place] [address] 493.00 401.1 Office Visit 05/25/2003 3:50[place] [address] 493.00 401.1 278.00 Office Visit 04/04/2003 10:20a Regi Manuel RN [facility] 95460 493.00 462 Office Visit 02/23/2003 4:30[place] [address] 401.1 493.00 724.2 Office Visit 11/24/2002 4:10p [place] [address] 401.1 Office Visit 11/02/2002 10:40a Regi Manuel RN [facility] 84274 462 465.9 Office Visit 09/24/2002 1:30p Regi Manuel RN [facility] 78072 401.1 Office Visit 06/22/2002 10:30a Regi Manuel RN [facility] 46162 784.0 Office Visit 05/12/2002 10:00a Regi Manuel RN [facility] 88490 785.1 782.0 346.90 Office Visit 05/03/2002 1:50p Regi Manuel RN [facility] 28368 401.1 785.1 784.0 782.0 Office Visit 12/11/2001 11:50[place] [address] Office Visit 10/20/2001 10:40[place] [address] Office Visit 10/06/2001 2:10p [place] [address] Office Visit 08/04/2001 9:50[place] [address] Office Visit 05/08/2001 2:10p Pia Bellamy M.D. 34819 Office Visit 04/27/2001 9:20[place] [address] Office Visit 04/01/2001 9:00a Desi Ortiz RN [facility] 96776 Office Visit 03/25/2001 3:20p Pia Bellamy M.D. 25434 Office Visit 03/04/2001 10:50a Desi Ortiz RN A.N.P. 98417 Office Visit 03/02/2001 9:30a Desi Ortiz RN A.N.P. 06772 Office Visit 01/21/2001 4:50p [place] [address] Office Visit 11/27/2000 11:50[place] [address] Office Visit 09/03/2000 5:40p [place] [address] 786.52 Plan of Care 11/26/2017 - Regi Garnica RN MS FNPM25.569 Pain in unspecified kneeNew Medication:8 Hour Arthritis Pain Reliever 650 mgMiscellaneous:ADD SOME ANTIINFLAMMATORIES, WOULD LIKE TO SEE IF CAN GET OFF THE NARCOTICS EVENTUALLY. WILL FOCUS ON WT LOSS AND KEEPING ACTIVE. THAT WILL HELP. SHE AGREES, WILL LOOK FOR WAYS TO KEEP ACTIVE IN WINTER, MAYBE A STATIONARY BIKE?R11.10 Vomiting, unspecifiedNew Medication:Ondansetron HCL 4 mgE78.2 Mixed hyperlipidemiaNew Medication:Atorvastatin Calcium 10 mgI10 Essential (primary) hypertensionComments:VERY CONCERNED ABOUT HER ELEVATED BP, THIS COULD BE CAUSING HER JARQUIN, SHE STATES SHE IS TAKING MEDS ASDIRECTED, TAKES BOTH TOGETHER( CARTIA 240 AND LISINOPRIL 30 MG, MAYBE NEEDS TO SEPERATE THEM ONE IN AM ONE IN PM, OR MAY NEED TO INCREASE THE CARTIA. HER BP HAS BEEN REGULATE BY NEPHROLOGY, WILL NEED TO HAVE HER CK BP AT HOME IN AM AND PM, AND SEEE IF BETTER AT NIGHT.
--- NOTE | 2017-12-22 12:56 | RAD ---
Indication: Chest pain. 2 views of the chest including dual energy PA views demonstrates no mediastinal shift. Heart is of normal size and configuration. Lung monsivais appear clear. When compared to previous exam of August 14, 2017 no significant change is noted. IMPRESSION: No active cardiopulmonary disease is noted.
[2017-12-22 13:32] VITALS: BP 131/85
--- NOTE | 2017-12-22 20:12 | ED ---
Ghada Terry Thomas, scribed for Nicholas Guzman MD on 12/22/17 at 1143 . HPI Chest Pain - HPI Summary HPI Summary: The patient is a 42 year old female complaining of constant chest pain and shortness of breath that began several days ago. The patient notes her shortness of breath worsens with physical activity. The patient additionally complains of a dry cough, an ear ache, loss of appetite , body aches. The patient denies edema, congestion, nausea, vomiting, and diarrhea. The patient has been previously diagnosed with polycystic kidney disease and is in stage 4 renal failure. - History of Current Complaint Chief Complaint: EDChestPainROMI Time Seen by Provider: 12/22/17 10:39 Hx Obtained From: Patient Hx Last Menstrual Period: 06/14/17 Onset/Duration: Started Days Ago Timing: Constant Current Severity: Moderate Pain Intensity: 8 Pain Scale Used: 0-10 Numeric Chest Pain Radiates: No Aggravating Factor(s): Exertion Associated Signs and Symptoms: Positive: Nonproductive Cough. Negative: Shortness of Breath, Nausea, Vomiting, Edema - Allergy/Home Medications Allergies/Adverse Reactions: Allergies Allergy/AdvReac Type Severity Reaction Status Date / Time No Known Allergies Allergy Verified 12/22/17 12:50 Home Medications: Home Medications Cholecalciferol TAB* [Vitamin D TAB*] 2,000 units PO DAILY 12/22/17 [History Confirmed 12/22/17] Lisinopril TAB* [Prinivil TAB*] 30 mg PO DAILY 12/22/17 [History Confirmed 12/22] Meclizine TAB* [Antivert 12.5 TAB*] 25 mg PO TID PRN 12/22/17 [History Confirmed 12/22/17] Multivitamin with Iron [Children's Vitamins with Iron] 2 tab.chew PO DAILY 12/22 [History Confirmed 12/22/17] PMH/Surg Hx/FS Hx/Imm Hx Endocrine/Hematology History: Reports: Hx Anemia Denies: Hx Diabetes, Hx Thyroid Disease Cardiovascular History: Reports: Hx Hypertension Denies: Hx Pacemaker/ICD Respiratory History: Reports: Hx Asthma Denies: Hx Chronic Obstructive Pulmonary Disease (COPD) GI History: Reports: Hx Gastroesophageal Reflux Disease Denies: Hx Ulcer History: Reports: Hx Chronic Renal Failure - stage 4, w/ polycystic kidney disease, Hx Renal Disease Sensory History: Denies: Hx Hearing Aid Neurological History: Reports: Hx Headaches, Hx Migraine, Hx Transient Ischemic Attacks (TIA) Psychiatric History: Reports: Hx Panic Disorder Infectious Disease History: No Infectious Disease History: Denies: Hx Clostridium Difficile, Hx Hepatitis, Hx Human Immunodeficiency Virus (HIV), Hx of Known/Suspected MRSA, Hx Shingles, Hx Tuberculosis, Hx Known/ Suspected VRE, Hx Known/Suspected VRSA, History Other Infectious Disease, Traveled Outside the [place] in Last 30 Days - Family History Known Family History: Positive: Hypertension - Social History Alcohol Use: None Substance Use Type: Reports: None Smoking Status (MU): Former Smoker Type: Cigarettes Amount Used/How Often: 1/2 ppd Review of Systems Positive: Ear Ache Positive: Chest Pain Positive: Cough. Negative: Shortness Of Breath Negative: Vomiting, Diarrhea, Nausea Positive: Myalgia. Negative: Edema All Other Systems Reviewed And Are Negative: Yes Physical Exam - Summary Physical Exam Summary: Appearance: The patient is well-nourished in no acute distress and in no acute pain. Skin: The skin is warm and dry and skin color reflects adequate perfusion. HEENT: ~The head is normocephalic and atraumatic. The pupils are equal and reactive. The conjunctivae are clear and without drainage. ~Nares are patent and without drainage. ~Mouth reveals moist mucous membranes and the throat is without erythema and exudate. ~The external ears are intact. The ear canals are patent and without drainage. The tympanic membranes are intact. Neck: the neck is supple with full range of motion and non-tender. There are no carotid bruits. ~There is no neck vein distension. Respiratory: Chest is non-tender. ~Lungs are clear to auscultation and breath sounds are symmetrical and equal. Cardiovascular: Heart is regular rate and rhythm. ~There is no murmur or rub auscultated. ~~There is no peripheral edema and pulses are symmetrical and equal. Abdomen: The abdomen is soft and non-tender. ~There are normal bowel sounds heard in all four quadrants and there is no organomegaly palpated. Musculoskeletal: There is no back tenderness noted. ~Extremities are non-tender with full range of motion. ~There is good capillary refill. ~There is no peripheral edema or calf tenderness elicited. Neurological: Patient is alert and oriented to person, place and time. ~The patient has symmetrical motor strength in all four extremities. ~Cranial nerves are grossly intact. Deep tendon reflexes are symmetrical and equal in all four extremities. Psychiatric: The patient has an appropriate affect and does not exhibit any anxiety or depression. Triage Information Reviewed: Yes Vital Signs On Initial Exam: Initial Vitals Temp Pulse Resp BP Pulse Ox 97.2 F 76 16 177/100 99 12/22/17 10:15 12/22/17 10:15 12/22/17 10:15 12/22/17 10:15 12/22/17 10:15 Vital Signs Reviewed: Yes Diagnostics - Vital Signs Vital Signs Temp Pulse Resp BP Pulse Ox 12/22/17 10:15 97.2 F 76 16 177/100 99 - Laboratory Lab Results: Lab Results 12/22/17 Range/Units 10:35 WBC 6.5 (3.5-10.8) 10^3/ul RBC 4.94 (4.0-5.4) 10^6/ul Hgb 15.7 (12.0-16.0) g/dl Hct 45 (35-47) % MCV 92 (80-97) fL MCH 32 H (27-31) pg MCHC 35 (31-36) g/dl RDW 14 (10.5-15) % Plt Count 132 L (150-450) 10^3/ul MPV 10 (7.4-10.4) um3 Neut % (Auto) 67.2 (38-83) % Lymph % (Auto) 21.8 L (25-47) % Edgar % (Auto) 7.4 (1-9) % Eos % (Auto) 2.3 (0-6) % Baso % (Auto) 1.3 (0-2) % Absolute Neuts (auto) 4.3 (1.5-7.7) 10^3/ul Absolute Lymphs (auto) 1.4 (1.0-4.8) 10^3/ul Absolute Monos (auto) 0.5 (0-0.8) 10^3/ul Absolute Eos (auto) 0.1 (0-0.6) 10^3/ul Absolute Basos (auto) 0.1 (0-0.2) 10^3/ul Absolute Nucleated RBC 0 10^3/ul Nucleated RBC % 0 Result Diagrams: 12/22/17 10:35 12/22/17 10:35 Lab Statement: Any lab studies that have been ordered have been reviewed, and results considered in the medical decision making process. - Radiology CXR Xray Interpretation: No Acute Changes - NO EVIDENCE FOR ACTIVE CARDIOPULMONARY DISEASE. Dr. Guzman has reviewed this report. Radiology Interpretation Completed By: Radiologist - EKG 1015 Cardiac Rate: NL - at 61 bpm EKG Rhythm: Sinus Rhythm EKG Interpretation: No STEMI Chest Pain Course/Dx - Course Course Of Treatment: Ms. Toney presented with a couple days of chest pain. She could not really give any exacerbating or relieving factors. She was in the middle of getting a W/U here today and left without announcing her intentions. She did get two negative troponins. - Diagnoses Provider Diagnoses: Chest pain Discharge - Discharge Plan Condition: Stable Disposition: OTHER Discharge Disposition Comment: The patient eloped before she could be discharged. Referrals: Regi Garnica [Primary Care Provider] - The documentation as recorded by the Ghada ewing Thomas accurately reflects the service I personally performed and the decisions made by me, Nicholas Guzman MD.
== END 2017-12-22 14:38 ==
LOC: ED 10:15
DX: R07.9 Chest pain, unspecified (principal); Z87.891 Personal history of nicotine dependence
CPT/HCPCS: 36415; 71046; 80053; 83605; 84484; 85025; 87502; 93005; 99282

== ENCOUNTER 2018-01-26 10:25 | Emergency (ER) | payer OTHER ==
--- OUTSIDE RECORDS SUMMARY | 2018-01-26 11:00 | XMS REPORT ---
:1975 External Reference #:[id number] [facility] Address [address] [address] Phone [phone] Care Team Providers Name Role Phone Eli Oliveira MD Care Team Information Portfolio Specialist Unavailable Payers Type Date Identification Numbers Payment Provider Subscriber Commercial Effective: Policy Number: [facility] Ly Toney 2011 [id number] PayID: [id number] [address] [place] [address] Problems Date Description Provider Status Onset: 05/23/2015 Mixed hyperlipidemia Eli Oliveira MD Active Onset: 09/07/2015 Essential hypertension Regi Garnica RN MS Active [employer] Onset: 10/15/2016 Chronic kidney disease Prashanth Davidson PA Active Onset: 10/15/2016 Chronic obstructive lung disease Prashanth Davidson PA Active Onset: 10/15/2016 Smoker Prashanth Davidson PA Active Onset: 02/04/2007 Benign essential hypertension Regi Garnica RN MS Inactive [employer] Inactive: 10/15/2016 Family History Date Family Member(s) [...] Danika Calcium 2018 s every day Regi C, RN MS [employer] 8 Hour 11/26/ Active Tablets ER 650mg 90tab one Tab M25.569 Danika Arthritis Pain 2018 s tid For Regi Reliever Arthritis Clyde RN MS Pain [employer] Ondansetron 11/26/ Active Tablets 4mg 30tab one tab as R11.10 Danika HCL 2018 s needed Regi every 8 Clyde, RN MS hours for [employer] nausea Lorazepam 11/18/ Active Tablets 0.5mg 4tabs 1-2 tabs F41.1 Danika, 2018 1/2-1 Regi hours Clyde RN MS Prior To [employer] The Pro[employer] Diltiazem CD 07/24/ Active Caps ER 240mg 30cap 1 by mouth I10 Danika2016 24HR s every day Regi Per Clyde ELIZONDO RN MS Hessin [employer] KP Aspirin 07/24/ Active Tablets DR 81mg 30tab 1 by mouth Danika, 2016 s every day Regi Per Neuro Clyde RN MS [employer] Magnesium 07/24/ Active Capsules 400mg 180ca 1 po bid N18.4 Macadam, Oxide 2016 ps Eli Armijo MD Calcitriol 05/27/ Active Capsules 0.25mcg 90cap Take One Ebro2016 s Capsule By Regi Mouth Daily Clyde RN MS [employer] Baclofen 05/23/ Active Tablets 10mg 60tab 1 tab twice M79.605 Danika 2016 s a day as Regi needed for Clyde RN MS muscle [employer] spasms Flintstones 03/03/ Active Chewtabs 1 tablet Roxanne, Plus Iron 2016 twice daily Eli Armijo MD Albuterol 01/02/ Active Nebulizer (2.5mg/3ML 750ml 1 vial in J06.9 Danika, Sulfate 2016 ) 0.083% neb. q4hr Regi as needed Clyde RN MS [employer] Cetirizine HCL 11/08/ Active Tablets 10mg 30tab Take One J45.40 Roxanne , 2016 s Tablet By Eli Mouth Every MD Zofia Day For Allergy Symptoms Advair Diskus 10/15/ Active Aerosol 250-50mcg/ 60uni Inhale One J45.40 Danika2015 Dose ts puff By Regi Mouth Twice C, RN MS A Day [employer] Ipratropium 09/11/ Active Solution 0.5-2.5(3) 360un Inhale The J45.40 Danika Tasley/Albute 2016 mg/3ML its Contents Of Regi rol Sulfate One Vial C, RN MS Via [employer] Nebulizer Four Times A Day For 7 Days Oxycodone-Acet 10/09/ Active Tablets 5-325mg 60tab 1 tablet by R51 Roxanne aminophen 2014 s mouth twice Eli a day as MD Zofia needed for pain Furosemide 10/09/ Active Tablets 20mg 30tab take 1 tab Roxanne, 2014 s everyday Eli MD Zofia Hydroxyzine 08/24/ Active Tablets 10mg 45tab take one to F41.1 Roxanne HCL 2014 s three Eli tablets by MD Zofia mouth every 6 hours as needed for anxiety may take3- 5 tablets by mouth at bedtime for sleep Escitalopram 08/24/ Active Tablets 10mg 90tab Take One F41.1 Danika Oxalate 2014 s Tablet By Regi Mouth Every C, RN MS Day [employer] Meclizine HCL 02/15/ Active Tablets 25mg 30tab /2-1 by 386.11 Danika 2014 s mouth three Regi times a day C, RN MS as needed [employer] Ventolin HFA 04/01/ Active Aerosol 108(90Base 18uni Inhale Two J45.40 Danika, 2012 ) mcg/Act ts Puffs By Regi Mouth Every C, RN MS 6 To 8 [employer] Hours as Needed Lisinopril 04/16/ Active Tablets 30mg 90tab take one I10 Danika 2011 s tablet by Regi mouth every C, RN MS day [employer] Omeprazole 04/16/ Active Capsules DR 40mg 30cap Take One K21.9 Roxanne 2011 s Capsule By Eli Mouth Every MD Zofia Day R10.13 Singulair 12/12/2004 Active Tablets 10mg 90tabs take one J45.20 Danika, tablet by Regi mouth every C, RN MS day [employer] Topiramate Active Tablets 25mg start 1 by Unknown mouth every night at bedtime Cefdinir 12/23/2017 Hx Capsules 300mg 7caps 1 by mouth J01.00 Macadam, - every day x Eli 01/08/2018 7 d MD Zofia Fluticasone 12/23/2017 Hx Suspension 50mcg 16units 2 sprays [facility]01.00 [facility] /Act each nostril Eli 01/08/2018 daily MD Zofia Prednisone 12/23/2017 Hx Tablets 20mg 10tabs 2 every in J45.31 [facility], - the morning Eli 01/08/2018 x 5d MD Zofia Mucus Relief ER 12/23/2017 Hx Tablets ER 600mg 30tabs 1 by mouth J45.31 [facility], - 12HR twice a day Eli 01/08/2018 as needed MD Zofia sinus congestion Oseltamivir 12/01/2017 Hx Capsules 75mg 10caps 1 by mouth J06.9 [facility] , Phosphate - twice a day Eli 12/06/2017 for 5days MD Zofia Azithromycin 09/22/2017 Hx Tablets 500mg 3tabs 1 by mouth J15.9 [facility] , - every day Eli 10/02/2017 MD Zofia Guaifenesin-Code 09/22/2017 Hx Syrup 100-1 180ml 5ml by mouth J15.9 [facility], ine - 0mg/5 every 4 Eli 10/02/2017 ML hours as MD Zofia needed cough Magnesium-Oxide 07/24/2017 Hx Tablets 400(2 90tabs take one N18.4 Danika, - 41.3m tablet by Regi 07/24/2017 g) mg mouth every HANSEL Tang MS day [employer] 8 Hour Pain 05/23/2017 Hx Tablets ER 650mg Arthritis M79.604 Danika, Relief - Pain Med, Regi 11/26/2017 Tylenol Up HANSEL Tang MS To 3 Times A [employer] Day. Ativan 05/23/2017 Hx Tablets 0.5mg 4tabs 1-2 tabs F41.1 Danika, - 1/2-1 hours Regi 11/18/2017 Prior To HANSEL Tang MS The [employer] Proccedure Please Consider 05/23/2017 Hx stage 4 Danika, Excusing From - kidney Regi Jury Duty 11/26/2017 disease, C RN MS needs freq [employer] bathroom breaks, migraine headache freq, recent TIA attack, need no stress at this time, Promethazine HCL 05/01/2017 Hx Suppository 25mg 12units one per Danika , - rectum as Regi 11/26/2017 needed ( C, RN MS after [employer] unwrapping) for nausea or vomiting every 6-8 hours Amoxicillin 03/03/2017 Hx Capsules 500mg 10caps 500 mg 1 tab Macadam, - every 12 Eli 04/23/2017 hours x 5 MD Zofia days Vitamin D 01/02/2017 Hx Capsules 72612 10caps one cap E55.9 Danika, (Ergocalciferol) - Unit weekly x 10 Regi 03/03/2017 weeks C, RN MS [employer] Prednisone 01/02/2017 Hx Tablets 10mg 30tabs 4 tabs q am J06.9 Danika, - x3 days then Regi 05/01/2017 3tabs x 3 C, RN MS days, then2 [employer] tabs x3 d then 1tabs x3d Duloxetine HCL 11/08/[address] Part 30mg 90caps Once Daily, F33.9 Danika, - Increase To Regi 03/03/2017 2 Tabs After Clyde RN MS 2 Weeks If [employer] No Change Nicotrol 10/15/2016 Hx Inhaler 10mg 168unit Inhale 1 F17.210 Roxanne, - s every 2-3hrs [facility] 04/23/2017 prn MD Zofia Biaxin 09/17/2016 Hx Tablets 500mg 20tabs One Tab bid R06.02 Danika, - X 10 Days Regi 09/27/2016 Clyde RN MS [employer] Mucinex 09/11/2016 Hx Tablets ER 600mg 30tabs 1 tab per J45.40 Roxanne, - 12HR oral twice a Eli 04/23/2017 day MD Zofia Cheratussin ac 08/23/2016 Hx Solution 100-1 118ml 1- teaspoon R06.02 Danika, - 0mg/5 at bedtime, [facility] 09/02/2016 ML may repeat x C, RN MS 1 after 4 [employer] hours if still needed Biaxin 08/23/2016 Hx Tablets 500mg 20tabs One Tab bid R06.02 Danika, - X 10 Days Regi 09/11/2016 Clyde RN MS [employer] Prednisone 08/23/2016 Hx Tablets 10mg 30tabs 4 tabs q am R06.02 Danika, - x3 days then Regi 09/02/2016 3tabs x 3 C, RN MS days, then2 [employer] tabs x3 d then 1tabs x3d Cheratussin ac 11/23/2015 Hx Solution 100-1 120unit 1-2 teaspoon J20.9 Ebro, - 0mg/5 s at bedtime, Regi 08/08/2016 ML may repeat x C, RN MS 1 after 4 [employer] hours if still needed Biaxin 11/23/2015 Hx Tablets 500mg 14tabs On Tab bid J20.9 Ebro, - Till Gone Regi 08/08/2016 C, RN MS [employer] Mirapex 11/23/2015 Hx Tablets 0.125 90tabs Take 2-3 G25.81 Danika, - mg Hours Regi 03/03/2017 Before Bed, C, RN MS May Cause [employer] Daytime Drowsiness, Avoid Driving Levaquin 10/13/2015 Hx Tablets 500mg 50tabs once tab R31.9 Danika, - daily x 5 Regi 11/23/2015 days C, RN MS [employer] Cipro 10/13/2015 Hx Tablets 250mg 14tabs 1 by mouth R31.9 Ebro, - twice a day Regi 11/23/2015 x 7 days C, RN MS [employer] Sumatriptan 10/12/2015 Hx Tablets 50mg Gavino, Succinate - [facility] 10/12/2015 MD Cari Sumatriptan 10/12/2015 Hx Tablets 100mg 30tabs take 1/2 to Gavino, Succinate - 1 tablet by [facility] 08/08/2016 mouth at MD Cari earliest onset of headache, may repeat once in 2 hours - max dose 2 tab qday Topamax 10/11/2015 Hx Tablets 25mg 30tabs take 1/2 Gavino, - tabs by [facility] 08/08/2016 mouth in in MD Cari the morning, may try up to 1 tab in 1 week if tolerated and additional benefit desired Maxalt[employer] 10/11/2015 Hx Tablets 10mg 12tabs take 1 Gavino, - Dispers tablet at [facility] 10/12/2015 onset of MD Cari aura, may repeat 1 dose in 2 hours maximum daily dose=2 tablets Doxazosin 06/23/2015 Hx Tablets 2mg One Tab bid I10 Danika, Mesylate - Per Nephro [facility] 03/03/2017 C RN MS [employer] Feosol 05/23/2015 Hx Tablets 325(6 30tabs 1 by mouth D50.9 Roxanne, - 5Fe) every day [facility] 03/03/2017 mg with vit c MD Zofia Vitamin B-12 05/23/2015 Hx Tablets 1000m 30tabs 1 by mouth 281.1 Roxanne, - cg every day [facility] 03/03/2017 MD Zofia Hydrocodone-Acet 06/01/2014 Hx Tablets 5-325 30tabs 1 tab by M54.31 Roxanne aminophen - mg mouth tid as [facility] 10/15/2016 needed pain MD Zofia Amlodipine 06/01/2014 Hx Tablets 5mg 90tabs 1 by mouth I10 Danika, Besylate - every day [facility] 03/03/2017 HANSEL Tang MS [employer] Labetalol HCL 06/01/2014 Hx Tablets 200mg 180tabs Take One I10 Danika, - Tablet By [facility] 07/24/2017 Mouth Twice HANSEL Tang MS A Day [facility] Robitussin ac 09/28/2013 Hx 240unit 10 ml qid 493.00 Roxanne, - s prn [facility] 10/14/2013 MD Zofia Clarithromycin 02/10/2013 Hx Tablets 500mg 20tabs 1 po bid x 461.0 Roxanne, - 10 d hold [facility] 10/14/2013 simvastatin MD Zofia and nortriptilin e during Nicotine 01/14/2013 Hx Gum 2mg QS use as 305.1 Danika Polacrilex - directed [facility] 06/01/2014 HANSEL Tang MS [facility] Kym 12/22/2012 Hx Tablets 180mg OTC One Daily 386.11 Danika, - uses for [facility] 10/15/2016 rash d/t sun HANSEL Tang MS exposure iin [facility] summer. Meclizine HCL 2012 Hx Tablets 25mg 30tabs 1/2-1 po tid 780.4 Danika, - prn Regi 01/14/2013 HANSEL Tang MS [employer] Furosemide 10/15/2012 Hx Tablets 20mg 30tabs 1 by mouth 585.3 Danika, - every day Regi 06/12/2015 HANSEL Tang MS [employer] Simvastatin 10/15/2012 Hx Tablets 20mg 30tabs take one E78.2 Danika, - tablet by Regi 11/26/2017 mouth every C, RN MS day before [employer] bed Hydrocodone/Acet 04/16/2012 Hx Tablets 5-325 20tabs 1-2 tabs q6 724.5 Danika aminophen - mg hrs prn [facility] 09/28/2013 severe pain C, RN MS [employer] Klaron 04/16/2012 Hx Lotion 10% 1units bid as 695.3 Danika, - Directed [facility] 03/03/2017 C, RN MS [employer] Calcitriol 03/03/2012 Hx Capsules 0.25m Once Daily 782.1 Danika, - cg [facility] 03/03/2017 C, RN MS [employer] Metronidazole 03/03/2012 Hx Gel 0.75% 1units apply to 695.3 Danika, - face bid [facility] 12/22/2012 C, RN MS [employer] Dexilant 03/03/[address] 60mg 30caps once daily 782.1 Danika, - Regi 04/16/2012 Clyde, RN MS [employer] Cyclobenzaprine 01/27/2012 Hx Tablets 10mg 30tabs Take 1/2 To 333.94 Danika HCL - 1 Tablet By [facility] 06/01/2014 Mouth At C, RN MS Bedtime as [employer] Needed For Leg Spasm Tramadol HCL 01/14/2012 Hx Tablets 50mg 60tabs take 1 784.0 Danika - TAblet up to [facility] 06/01/2014 4 times a C, RN MS day as [employer] needed for pain. 724.5 Fluticasone 01/14/2012 - Hx Suspension 50mcg/Act 1units one spray R51 Danika Propionate 10/09/2015 per each Regi nostril qd C, RN MS [employer] Ipratropium 10/01/2011 - Hx Solution 0.02% 60units use in J45.3 Danika Tasley 09/11/2016 nebulizer 0 Regi four times a C, RN MS day [employer] J45.40 J45.998 Pantoprazole 09/30/2011 - Hx Tablets DR 40mg 90tabs 1 po qd 530.11 Danika Sodium 04/16/2012 Regi Tang RN MS [employer] Clarithromycin 09/30/2011 - Hx Tablets 500mg 28tabs 1 po bid x 466.0 [facility], 01/14/2012 14 d Eli Armijo MD Medrol Dosepak 09/30/2011 - Hx Tablets 4mg 1Pack as dir 493.00 [facility], 01/14/2012 Eli Armijo MD Robitussin ac 09/30/2011 - Hx 120ml 10 ml qid 493.00 [facility], 01/14/2012 prn Eli Armijo MD Chantix 09/06/2011 - Hx Tablets 0.5mg 1tabs starter 305.1 Ebro, 01/14/2012 pack, use as Regi Tang RN MS [facility] Chantix 09/06/2011 - Hx Tablets 1mg 60tabs 1 po bid 305.1 Ebro, 12/22/2012 with lots of Regi Tang RN MS [facility] Albuterol 03/29/2011 - Hx Nebulizer (2.5mg 1Box 1 vial in J45.40 [facility], Sulfate 10/15/2016 /3ML) neb. q4hr as Eli 0.083% susu Armijo MD Labetalol HCL 01/16/2011 - Hx Tablets 100mg 60tabs Take One 401.1 Ebro, 06/01/2014 Tablet By Regi Aidan Twice HANSEL Tang MS A Day [employer] Famvir 12/20/2010 - Hx Tablets 500mg 21tabs 1 po tid x 7 053.9 Ebro, 01/14/2012 days Regi Tang RN MS [facility] Flexeril 12/20/2010 - Hx Tablets 10mg 30tabs 1/2-1 Tab hs 333.94 [facility], 01/27/2012 prn Leg Eli Armijo MD Nortriptyline 12/10/2010 - Hx Capsules 25mg 90caps 1 po qd hs Danika, HCL 12/10/2010 Regi Tang RN MS [facility] Nortriptyline 12/10/2010 - Hx Capsules 25mg 30caps Take One G43.109 Danika, HCL 12/03/2017 Capsule By Regi Mouth At HANSEL Tang MS Bedtime [employer] Biaxin XL 10/24/2010 - Hx Tablets ER 500mg 20tabs 2 po qd x 10 465.9 Danika, 12/20/2010 24HR days Regi Tang RN MS [employer] Biaxin XL 2009 - Hx Tablets ER 500mg 20tabs 2 po qd x 10 465.9 Ebro, 12/24/2009 24HR days Regi C, RN MS [employer] Robitussin ac 2009 - Hx 100cc 1-2 tsp qid 465.9 Ebro, 12/24/2009 prn cough Regi Tang RN MS [employer] Soma 11/29/2009 - Hx Tablets 250mg 30tabs 1 tab q 6 Ebro, 11/29/2009 hours prn Regi muscle spasm C, RN MS [employer] Soma 11/29/2009 - Hx Tablets 350mg 30tabs 1 hs prn Ebro, 12/20/2010 muscle Regi spasms C, RN MS [facility] Drisdol 11/29/2009 - Hx Capsules 32411F 8caps 1 tab po q Ebro, 01/14/2012 nit weekly for 8 Regi weeks Clyde RN MS [facility] Hydrocodone-Acet 10/25/2009 - Hx Tablets 5-500m 40tabs 1-2 tabs q6 Ebro, aminophen 04/16/2012 g hrs prn Regi severe pain C, RN MS [employer] Amoxicillin 08/09/2009 - Hx Tablets 875mg 28tabs 1 po bid 466.0 Ebro, 08/29/2009 take till Regi gone( 14 C, RN MS days) [employer] Atrovent 08/09/2009 - Hx Solution 0.06% 30units use with one 466.0 Ebro, 08/09/2009 amp of Regi albuterol Clyde RN MS tid [employer] Atrovent 08/09/2009 - Hx Solution 0.03% 60units use with the 466.0 [facility], 01/14/2013 albuterol in Eli nebulizer MD Zofia qid Lotrisone 05/26/2009 - Hx Cream 15gm apply bid as 782.1 Trabout, 11/16/2009 directed Kimani, under breast area Chantix 02/21/2009 - Hx Tablets 0.5mg 1tabs starter 305.1 Ebro, 03/23/2009 pack, use as Regi directed Clyde RN MS [facility] Lisinopril 02/21/2009 - Hx Tablets 20mg 90tabs Take 1 401.1 [facility], 04/16[facility]2012 Tabley By Eli Mouth Once ZofiaMD Daily Fexofenadine HCL 10/06/2008 - Hx Tablets 180mg 30tabs 1 Tab Daily 381.81 Danika, 11/16/2009 as Needed Regi Tang RN MS Allergies [employer] Naprosyn 10/06/2008 - Hx Tablets 500mg 60tabs 1 PO bid 625.3 Ebro, 07/15/2011 With Food Regi prn Pain HANSEL Tang MS [employer] Pulmocort 10/06/2008 - Hx 180mcg Samples 1-2 J45.20 Ebro, Flexinhaler 10/15/2016 inhalation Regi bid HANSEL Tang MS [employer] J45.40 J45.998 Tessalon 10/06/2008 - Hx Capsules 200mg 30caps 1 Tab Q 8 493.00 Ebro, 11/16/2009 HRS prn Regi Cough HANSEL Tang MS [employer] Lisinopril 10/06/2008 - Hx Tablets 10mg 90tabs 1 PO qd 401.1 Ebro, 02/21/2009 Regi Tang RN MS [employer] Hydrochlorothiazide 10/06/2008 - Hx Tablets 12.5mg 90tabs 1 qd as 401.1 Danika, 03/03/2012 Directed Regi Tang RN MS [employer] Lisinopril/Hydrochlor 02/24/2008 - Hx Tablets 10-12. 90tabs 1 po qd Danika, othiazide 10/31/2008 5 Regi Tang RN MS [employer] Hydrochlorothiazide 02/24/2008 - Hx Tablets 12.5mg 30tabs 1 qd as Ebro, 03/25/2008 Directed Regi Tang RN MS [employer] Compazine 09/08/2007 - Hx Tablets 10mg 10tabs 1 PO Q8 558.9 Danika, 10/08/2007 Hours prn Regi Nausea Or HANSEL Tang MS Vomiting [employer] Meclizine HCL 09/08/2007 - Hx Tablets 25mg 30tabs 1 Tab hs 386.11 Ebro, 02/24/2008 Regi Tang RN MS [employer] Nasocort Nasal Mosca 03/25/2007 - Hx Samples 2 squirts 381.81 Ebro, 12/20/2010 each Regi nostril HANSEL Tang MS once daily [employer] Amoxil 02/09/2007 - Hx Tablets 875mg 20tabs 1 bid For 464.20 Danika, 02/19/2007 10 Days Regi Tang RN MS [employer] Fexofenadine 02/04/2007 - Hx Tablets 180mg 90tabs 1 po qd 476.0 Danika, 02/24/2008 Regi Tang RN MS [employer] Amoxicillin 01/23/2007 - Hx Tablets 500mg 30tabs 1 po tid 462 [place], 02/04/2007 Eli Armijo MD Biaxin XL 1 Pac 10/07/2006 - Hx Tablets 500mg 1Pack qd AD 465.9 Ebro, 2009 Regi Tang RN MS [employer] Ibuprofen 07/29/2006 - Hx Tablets 600mg 90tabs 1 Q6 HRS 719.42 Ebro, 10/06/2008 prn Pain Regi Tang RN MS [employer] Biaxin XL 1 Pac 04/28/2006 - Hx Tablets 500mg 14Pills 2 po qd x 466.0 [place], 07/29/2006 7 days Eli Armijo MD Prednisone 02/18/2006 - Hx Tablets 10mg 30tabs 4 tabs [facility] 466.0 [facility] 07[facility] 3 days,3 Eli tabs for 3 MD Zofia days, 2 tabs for 3 days then 1 tab daily Robitussin A-c 02/18/2006 - Hx Syrup 100mg; 120ml 1-2 tsp q4 466.0 [place], 07/29/2006 10mg/5 hrs prn Eli Armijo MD Albuterol Inhalation 02/12/2006 - Hx Solution 0.083% 1Box i vial in 466.0 Ebro, 03/29/2011 neb. q4hr Regi Tang RN MS (usually [employer] bid-tid) Azmacort Inhaler 02/12/2006 - Hx Aerosol 100mcg 1units 2 puffs 786.2 Ebro, 02/04/2007 /Mosca tid use Regi after carleen Tang RN MS albuterol [employer] Z-Henrique 02/12/2006 - Hx Tablets 250mg 1Pack as 466.0 Danika, 02/12/2006 directed HANSEL Jauregui MS Biaxin XL 2 Pac 02/12/2006 - Hx Tablets 500mg 14tabs 2 tabs qd 466.0 Ebro, 02/19/2006 x 7 days HANSEL Jauregui MS Nexium 01/09/2005 - Hx Capsules 40mg 60caps 1 po bid Trabout, 09/30/2011 DR on an Kimani yan MD stomach Nortriptyline 12/12/2004 - Hx Capsules 25mg 90caps 1 po qd hs Ebro, 12/10/2010 Regi Tang RN MS [employer] Labetalol 12/12/2004 - Hx Tablets 100mg 180tabs 1 po bid Ebro, 01/16/2011 Regi Tang RN MS [employer] Albuterol Inhalation 12/12/2004 - Hx Aerosol 90mcg/ 1units 2 puffs Danika, 10/14/2013 Dose q6-8 hrs Regi Tang RN MS [employer] Lisinopril 12/12/2004 - Hx Tablets 10mg 180tabs [...] Indications Ordering Provider PPD 01/13 Administered Injection Danika eRgi Tang RN MS [facility] PPD 11/17 Administered Injection Nurses Schedule Opal PPD 03/16 Administered Injection Nurses /2006 Schedule Opal PPD 03/16 Administered Injection Trabout, MD Kimani PPD 11/14 Administered Injection Trabout MD Kimani Torodol Injection 03/26 Administered Injection Trabout, 15 MG Dose /2000 MD Kimani Torodol Injection 03/25 Administered Injection Mahesh, 15 MG Dose /2000 Logan Palacio Solumedrol 03/02 Administered Injection Gian Mossrenisobrandonne /2000 Desi, Sodium Succinate HANSEL A.N.P. Up To 40 MG Immunizations CPT Code Status Date Vaccine Lot # [id number] Given 01/14/2012 Tdap (Adacel) Ages 7 And Above Only [id number] 65636 Given 09/14/2007 Afluria Or Fluvirin Flu Vac Intramuscular 20651 Given 09/14/2007 Afluria Or Fluvirin Flu Vac Intramuscular [id number] 93776 Given 10/07/2006 Afluria Or Fluvirin Flu Vac Intramuscular [id number], 13773 Given 08/21/2005 Afluria Or Fluvirin Flu Vac Intramuscular [id number] 61666 Given 10/03/2004 Afluria Or Fluvirin Flu Vac Intramuscular 56899 Refused 11/08/2016 Influenza Vac, 3 Yrs & Older, Quadrivalent, Split, Im Use Vital Signs Date Vital Result Comment 01/08/2018 Body Temperature 99.0 F Weight 243.50 lb Heart Rate 88 /min BP Systolic 138 mmHg BP Diastolic 87 mmHg Height 67 inches 5'7" BMI (Body Mass Index) 38.1 kg/m2 12/23/2017 Body Temperature 98.1 F Weight 242.00 lb Heart Rate 76 /min BP Systolic 134 mmHg BP Diastolic 86 mmHg Height 67 inches 5'7" BMI (Body Mass Index) 37.9 kg/m2 12/01/2017 Body Temperature 98.3 F Weight 239.12 [...] 60 Lymph % 26.6 % (16.0-52.0) 60 Chicot % 10.1 % High (0-8.0) 60 Eos % 3.0 % (0-5.0) 60 Baso % 0.4 % (0-4.0) 60 Neut # 4.2 K/UL (1.8-7.7) 60 Lymph # 1.9 K/UL (1.2-4.8) 60 Chicot # 0.7 K/UL (0-0.8) 60 Eos # [...] 66 Lymph % 26.7 % (16.0-52.0) 66 Chicot % 9.0 % High (0-8.0) 66 Eos % 3.7 % (0-5.0) 66 Baso % 0.7 % (0-4.0) 66 Neut # 4.2 K/UL (1.8-7.7) 66 Lymph # 1.9 K/UL (1.2-4.8) 66 Chicot # 0.6 K/UL (0-0.8) 66 Eos # [...] -RL 08/19/2011 PTH, Intact @ 40.1 pg/mL () 66, 70 Calcium @ 9.5 mg/dL (8.4-10.2) 66, 71 PTH,Intact W/ CA -RL 05/28/2011 PTH, Intact @ 58.0 pg/mL () 72, 73 Calcium @ 8.9 mg/dL (8.4-10.2) [...] 72 Lymph % 35.2 % (16.0-52.0) 72 Chicot % 9.7 % High (0-8.0) 72 Eos % 2.4 % (0-5.0) 72 Baso % 0.7 % (0-4.0) 72 Neut # 2.6 K/UL (1.8-7.7) 72 Lymph # 1.7 K/UL (1.2-4.8) 72 Chicot # 0.5 K/UL (0-0.8) 72 Eos # [...] YELLOW 98 Appearance -LA CLOUDY 98 Specific [place] -LA 1.012 1.003-1.030 98 PH Urine -LA [...] Unless otherwise specified, testing performed by [facility] [address] [address] 4 Updated reference range on new analyzer [...] 10 Unless otherwise specified, testing performed by [facility] [place] [address] 11 5.5 No visible hemolysis. 12 Concerning [...] Unless otherwise specified, testing performed by [facility] [address] [place] [id number] 22 FSH Female Normal Values: Mid-Follicular: 3.9-8.8 [...] This sample is drawn by:[email or web address] RESULTS TO @[phone]. 42 Concerning GFR Guidelines: Normal function or [...] Unless otherwise specified, testing performed by [facility] [address] [place] [id number] This sample is drawn by:NIRMAL 46 [...] by the kidneys. 60 COPY TO NEPHROLOGY. [phone] FAX This sample is drawn by:CINDY 61 NOTE: New reporting units and reference range effective 2010 62 Unless otherwise specified, testing performed by [facility] [place] [address] 63 Unless otherwise specified, testing performed by [facility] [place] [address] 64 144 65 NORMAL KIDNEY FUNCTION OR MILD DISEASE - GFR >OR=60 CHRONIC KIDNEY DISEASE - GFR 15 - 59 RENAL FAILURE - GFR <15 Est. GFR calculation based on the MDRD study equation, which assumes a steady state for creatinine. Est. GFR should not be used for medication dosing. Unless otherwise specified, testing performed by [facility] [place] [address] 66 This sample is drawn by:CT 67 Unless otherwise specified, testing performed by [facility] [place] [address] 68 FASTING 69 NORMAL KIDNEY FUNCTION OR MILD DISEASE - GFR >OR=60 CHRONIC KIDNEY DISEASE - GFR 15 - 59 RENAL FAILURE - GFR <15 Est. GFR calculation based on the MDRD study equation, which assumes a steady state for creatinine. Est. GFR should not be used for medication dosing. Unless otherwise specified, testing performed by [facility] [place] [address] 70 NOTE: New reporting units and reference range effective 2010 71 Unless otherwise specified, testing performed by [facility] [place] [address] 72 This sample is drawn by:NB. 73 NOTE: New reporting units and reference range effective 2010 74 Unless otherwise specified, testing performed by [facility] [place] [address] 75 Unless otherwise specified, testing performed by [facility] [place] [address] 76 NORMAL KIDNEY FUNCTION OR MILD DISEASE - GFR >OR=60 CHRONIC KIDNEY DISEASE - GFR 15 - 59 RENAL FAILURE - GFR <15 Est. GFR calculation based on the MDRD study equation, which assumes a steady state for creatinine. Est. GFR should not be used for medication dosing. Unless otherwise specified, [place] [address] 77 PER NCEP ATP III GUIDELINES: OPTIMAL < 100 NEAR OPTIMAL 100 - 129 BORDERLINE HIGH 130 - 159 HIGH 160 - 189 VERY HIGH > 189 78 FAX RESULTS TO @[phone].This sample is drawn by: 79 NORMAL KIDNEY FUNCTION OR MILD DISEASE - GFR >OR=60 CHRONIC KIDNEY DISEASE - GFR 15 - 59 RENAL FAILURE - GFR <15 Est. GFR calculation based on the MDRD study equation, which assumes a steady state for creatinine. Est. GFR should not be used for medication dosing. Unless otherwise specified, testing [place] [address] 80 PER NCEP ATP III GUIDELINES: RESULTS [...] LDL. Unless otherwise specified, testing [place] [address] 83 Unless otherwise specified, testing performed by [facility] [place] [address] 84 NOTE: New reporting units and reference range effective 2010 Unless otherwise specified, testing performed by [facility] [place] [address] 85 PER NCEP ATP III GUIDELINES: OPTIMAL [...] 10/05/09) Unless otherwise specified, testing performed by [facility] [place] [address] 88 FASTING 89 PER NCEP ATP III [...] LDL. Unless otherwise specified, testing [place] [address] 92 Unless otherwise specified, [place] [address] 93 Unless otherwise specified, testing performed by [facility] [address] [place] [address] 94 FASTING 95 NORMAL KIDNEY FUNCTION OR MILD DISEASE - GFR >OR=60 CHRONIC KIDNEY DISEASE - GFR 15 - 59 RENAL FAILURE - GFR <15 Est. GFR calculation based on the MDRD study equation, which assumes a steady state for creatinine. Est. GFR should not be used for medication dosing. Unless otherwise specified, testing performed by [facility] [address] [place] [address] 96 AUTOMATED DIFFERENTIAL 97 Unless otherwise specified, testing performed by [facility] [address] [place] [address] 98 This sample is drawn by:CT 99 SPECIMEN DESCRIPTION URINE, COLLECTION METHOD NOT SPECIFIED CULTURE RESULTS NO GROWTH REPORT STATUS FINAL 11/17/2009 Unless otherwise specified, testing performed by [facility] [address] [place] [address] 100 Unless otherwise specified, testing performed by [facility] [address] [place] [address] 101 FASTING This sample is drawn by: DB 102 AUTOMATED DIFFERENTIAL 103 Unless otherwise specified, testing performed by [facility] [address] [place] [address] 104 FASTING 105 NORMAL KIDNEY FUNCTION OR MILD DISEASE - GFR >OR=60 CHRONIC KIDNEY DISEASE - GFR 15 - 59 RENAL FAILURE - GFR <15 Est. GFR calculation based on the MDRD study equation, which assumes a steady state for creatinine. Est. GFR should not be used for medication dosing. Unless otherwise specified, testing performed by [facility] [address] [place] [address] 106 PER NCEP ATP III GUIDELINES: RESULTS [...] 189 Unless otherwise specified, testing performed by [facility] [address] [place] [address] 109 FASTING 110 AUTOMATED DIFFERENTIAL 111 PER [...] Procedures Date CPT Code Description Status 05/09/2017 28519 ECHO Transthoracis 2D W Spectral Doppler Completed 08/23/2016 25292 Measure Blood Oxygen Level Single Determination Completed 11/17/2009 14962 Admin Of Inj (Therapeutic Phrophylactic Or Diagnostic Completed Subq Inj 05/03/2002 68686 Electrocardiogram Complete Completed 08/04/2001 20326 Airway Inhalation Treatment Completed 03/02/2001 01912 Measure Blood Oxygen Level Single Determination Completed 03/02/2001 53345 Airway Inhalation Treatment Completed 11/27/2000 62826 Electrocardiogram Complete Completed Encounters Type Date Location Provider CPT E/M Dx Office Visit 12/23/2017 1:45p [place] [address] J01.00 J45.31 Office Visit 12/01/2017 10:20[place] [address] J06.9 J02.9 R53.83 Office Visit 11/26/2017 8:20a Regi Manuel, [facility] 43133 M25.569 R11.10 E78.2 I10 Office Visit 09/22/2017 2:20[place] [address] J15.9 N18.4 I10 J45.41 F17.211 Office Visit 07/24/2017 10:00a Regi Manuel RN [facility] [address] I10 D64.9 R51 N18.4 Office Visit 05/23/2017 10:40a Regi Manuel, [facility] 6[address] G45.9 E66.01 D64.9 R51 M79.604 M79.605 F41.1 Office Visit 04/23/2017 10:40a Regi Manuel RN [facility] 80391 E66.01 M79.1 R11.2 E21.2 D64.9 P96.0 R00.2 G45.9 Office Visit 03/03/2017 10:20[place] [address] J01.10 J45.41 E55.9 F17.211 Office Visit 01/02/2017 1:00p Regi Manuel RN [facility] 18337 E55.9 J06.9 J02.9 Office Visit 11/08/2016 9:00a Regi Manuel RN [facility] 48160 Z00.00 J45.40 N18.4 G25.81 F41.1 E78.2 I10 M62.89 D50.9 E55.9 F33.9 R10.11 Office Visit 10/15/2016 1:00p [place] [address] J45.40 F17.210 R06.02 Office Visit 09/11/2016 3:20[place] [address] J45.40 F17.210 Office Visit 08/28/2016 3:30p Regi Manuel RN [facility] 61367 R10.11 Office Visit 08/23/2016 1:40p Regi Manuel RN [facility] 66065 R06.02 Office Visit 08/08/2016 1:20p Regi Manuel RN [facility] 62377 R10.11 N18.4 G25.81 F41.1 E78.2 I10 J45.998 J45.40 Office Visit 05/15/2016 2:40[place] [address] N18.4 N95.1 F33.9 E78.2 Office Visit 03/07/2016 11:20[place] [address] M54.31 Office Visit 11/23/2015 8:00a Regi Manuel RN [facility] 52545 F41.1 F33.0 I10 J20.9 G25.81 D50.9 Office Visit 10/13/2015 3:20p Regi Manuel RN [facility] 28703 R31.9 Office Visit 10/09/2015 8:40[place] [address] R51 Office Visit 09/07/2015 8:00a Regi Manuel RN [facility] 05401 F33.0 F41.1 I10 Office Visit 08/24/2015 11:40a Regi Manuel RN [facility] 13988 F33.0 F41.1 Office Visit 06/23/2015 3:00p Regi Manuel RN [facility] 98645 401.1 Office Visit 05/23/2015 10:00[place] [address] 724.3 724.2 401.1 281.1 280.9 272.2 Office Visit 02/15/2015 10:20a Regi Manuel RN [facility] 33198 401.1 272.2 327.23 386.11 704.00 Office Visit 06/01/2014 8:40a Regi Manuel RN [facility] 83000 401.1 278.01 272.2 346.00 588.9 493.00 719.47 789.06 Office Visit 10/14/2013 9:00a Regi Manuel RN [facility] 29238 V70.0 278.01 272.2 401.1 281.9 959.5 784.0 Office Visit 09/28/2013 12:20[place] [address] 461.0 493.00 Office Visit 02/10/2013 8:00a Regi Manuel RN [facility] 58799 388.70 380.4 386.11 278.01 272.2 588.9 Office Visit 01/20/2013 10:40a Regi Manuel RN [facility] 09275 388.70 381.4 Office Visit 01/14/2013 8:20a Regi Manuel RN [facility] 56855 401.1 272.2 278.01 305.1 724.5 588.9 Office Visit 12/22/2012 9:00a Regi Manuel RN [facility] 29088 386.11 780.4 305.1 Office Visit 2012 2:30[place] [address] 780.4 588.9 Office Visit 10/15/2012 8:00a Regi Manuel RN [facility] 62380 585.3 278.01 790.21 401.1 272.2 493.00 729.5 Office Visit 04/16/2012 9:20a Regi Manuel RN [facility] 92752 695.3 729.5 530.81 307.42 401.1 Office Visit 03/03/2012 1:00p Regi Manuel RN [facility] 66766 782.1 695.3 729.5 Office Visit 01/14/2012 11:00a Regi Manuel RN [facility] 55686 V70.0 585.3 305.1 278.01 914.0 784.0 V74.1 307.42 V06.1 V04.89 Office Visit 09/30/2011 4:45p [place] [address] 466.0 493.00 530.11 Office Visit 09/06/2011 9:40a Regi Manuel RN [facility] 34586 305.1 585.3 790.21 Office Visit 12/20/2010 10:40a Regi Manuel RN [facility] 48603 369.8 053.9 333.94 Office Visit 10/24/2010 10:15a Regi Manuel RN [facility] 52349 465.9 Office Visit 2009 11:00a Regi Manuel RN [facility] 87903 599.70 465.9 Office Visit 11/16/2009 9:30a Regi Manuel RN [facility] 33618 788.43 V70.0 333.94 724.3 V17.49 V41.1 Office Visit 08/09/2009 1:00p Regi Manuel RN [facility] 79994 461.0 466.0 Office Visit 05/26/2009 1:50[place] [address] 782.1 Office Visit 02/21/2009 10:15a Regi Manuel RN [facility] 90436 476.0 305.1 Office Visit 11/07/2008 9:00a Regi Manuel RN [facility] 46123 787.20 305.1 Office Visit 10/31/2008 4:15p [place] [address] 462 305.1 Office Visit 10/06/2008 9:00a Regi Manuel RN [facility] 93400 401.1 272.2 493.00 381.81 625.3 Office Visit 02/24/2008 9:15a Regi Manuel RN [facility] 96865 401.1 327.52 381.81 Office Visit 09/08/2007 9:00a Regi Manuel RN [facility] 82023 558.9 386.11 Office Visit 03/25/2007 11:15a Regi Manuel RN [facility] 64377 V70.0 381.81 493.10 401.1 305.1 Office Visit 02/09/2007 1:45p Regi Manuel RN [facility] 51623 464.20 305.1 Office Visit 02/04/2007 9:15a Regi Manuel RN [facility] 72960 476.0 305.1 307.42 Office Visit 01/23/2007 10:45[place] [address] 462 Office Visit 10/07/2006 2:45p Regi Manuel RN [facility] 16341 465.9 305.1 V04.81 Office Visit 07/29/2006 3:00p Regi Manuel RN [facility] 35332 401.1 530.81 493.00 305.1 719.42 Office Visit 04/28/2006 12:45[place] [address] 466.0 493.00 Office Visit 02/18/2006 8:40a Regi Manuel RN [facility] 26871 466.0 786.2 Office Visit 02/12/2006 8:00a Regi Manuel RN [facility] 55417 466.0 786.2 Office Visit 03/20/2005 6:20[place] [address] 401.1 493.00 530.81 Office Visit 01/09/2005 6:50p [place] [address] 493.00 401.1 Office Visit 12/12/2004 5:40[place] [address] 401.1 530.11 692.9 Office Visit 11/14/2004 5:20[place] [address] 401.1 493.00 278.00 V74.1 Office Visit 10/03/2004 5:20[place] [address] 401.1 493.00 V04.81 Office Visit 08/29/2004 5:00[place] [address] 401.1 461.0 Office Visit 08/01/2004 4:40[place] [address] 401.9 530.81 Office Visit 04/18/2004 4:10p [place] [address] 401.1 493.00 278.00 Office Visit 03/14/2004 5:30[place] [address] 401.1 493.00 Office Visit 02/15/2004 6:10p [place] [address] 401.1 493.00 530.81 Office Visit 01/25/2004 10:40a Regi Manuel RN [facility] 26127 462 Office Visit 01/11/2004 6:40[place] [address] 493.00 784.0 401.1 Office Visit 11/16/2003 6:50[place] [address] 401.1 789.00 530.81 Office Visit 09/21/2003 4:40[place] [address] 401.1 784.0 Office Visit 08/22/2003 4:10p [place] [address] 789.06 578.1 Office Visit 07/20/2003 4:50[place] [address] 493.00 401.1 789.06 Office Visit 06/22/2003 4:40[place] [address] 493.00 401.1 Office Visit 05/25/2003 3:50[place] [address] 493.00 401.1 278.00 Office Visit 04/04/2003 10:20a Regi Manuel RN [facility] 99309 493.00 462 Office Visit 02/23/2003 4:30[place] [address] 401.1 493.00 724.2 Office Visit 11/24/2002 4:10p [place] [address] 401.1 Office Visit 11/02/2002 10:40a Regi Manuel RN [facility] 85819 462 465.9 Office Visit 09/24/2002 1:30p Regi Manuel RN [facility] 66569 401.1 Office Visit 06/22/2002 10:30a Regi Manuel RN [facility] 34635 784.0 Office Visit 05/12/2002 10:00a Regi Manuel RN [facility] 64849 785.1 782.0 346.90 Office Visit 05/03/2002 1:50p Regi Manuel RN [facility] 91644 401.1 785.1 784.0 782.0 Office Visit 12/11/2001 11:50[place] [address] Office Visit 10/20/2001 10:40[place] [address] Office Visit 10/06/2001 2:10p [place] [address] Office Visit 08/04/2001 9:50[place] [address] Office Visit 05/08/2001 2:10p Pia Bellamy M.D. 88429 Office Visit 04/27/2001 9:20[place] [address] Office Visit 04/01/2001 9:00a Desi Ortiz RN [facility] 94220 Office Visit 03/25/2001 3:20p Pia Bellamy M.D. 14549 Office Visit 03/04/2001 10:50a Desi Ortiz RN [facility] 87005 Office Visit 03/02/2001 9:30a Dsei Ortiz RN [facility] 40844 Office Visit 01/21/2001 4:50[place] [address] Office Visit 11/27/2000 11:50[place] [address] Office Visit 09/03/2000 5:40[place] [address] 786.52 Plan of Care Future Appointment(s):02/09/2018 8:00 am - Prashanth Davidson PA at [id number] - Prashanth Davidson PAH69.92 Unspecified Eustachian tube disorder, LEFT earComments:nasal saline, expectorants, nasal steroids. no decongestants. fluid could persist for weeks. tylenol/motrin for discomfort.
[2018-01-26] MEDS ORDERED: Ondansetron INJ* 2 MG/ML VIAL IV ONE (11:06)
[2018-01-26] MEDS ORDERED: NS 0.9% 1000 ML* 1,000 ML IV ONE (11:06)
[2018-01-26] MEDS ORDERED: Morphine INJ* 10 MG/ML 1 ML CARPUJECT IV ONE (11:06)
[2018-01-26 11:32] LABS: ABS Basophils 0.1 10^3/ul (0-0.2); ABS Eosinophils 0.1 10^3/ul (0-0.6); ABS Lymphocytes 1.7 10^3/ul (1.0-4.8); ABS Monocytes 0.7 10^3/ul (0-0.8); ABS Neutrophils 4.3 10^3/ul (1.5-7.7); ABS Nucleated RBC 0 10^3/ul; Eosinophil % 1.3 % (0-6); Hematocrit 42 % (35-47); Hemoglobin 14.3 g/dl (12.0-16.0); Lymphocyte % 24.8 % (25-47); Mean Corpuscular HGB Conc 34 g/dl (31-36); Mean Corpuscular Hemoglobin 32 pg (27-31); Mean Corpuscular Volume 94 fL (80-97); Mean Platelet Volume 10.2 um3 (7.4-10.4); Nucleated Red Blood Cells % 0.1; Platelet Count 113 10^3/ul (150-450); Red Blood Count 4.47 10^6/ul (4.0-5.4); Red Cell Distribution Width 14 % (10.5-15); White Blood Count 6.7 10^3/ul (3.5-10.8)
[2018-01-26 11:41] LABS: INR 0.87 (0.77-1.02)
[2018-01-26 11:41] LABS: Urine Appearance Cloudy; Urine Blood 1+ (Negative); Urine Color Yellow; Urine Ketones Negative (Negative); Urine Protein 1+(30 mg/dL) (Negative); Urine Specific Gravity 1.009 (1.010-1.030); Urine Urobilinogen Negative (Negative)
--- NOTE | 2018-01-26 11:49 | RAD ---
Indication: Epigastric pain. History of asthma. Comparison: December 22, 2017 Technique: Upright AP 1125 hours Report: Negative for free air beneath the diaphragm. Mild alveolar consolidation at the medial RIGHT lung base. Given absence of obscuration of the RIGHT heart margin the consolidation likely involves the posterior basal segment of the RIGHT lower lobe. Negative for pleural effusion or pneumothorax. The heart, pulmonary vasculature, and mediastinal contours are unremarkable. IMPRESSION: Mild alveolar consolidation likely involving the posterior basal segment of the RIGHT lower lobe concerning for pneumonia. Correlate with clinical assessment.
[2018-01-26 11:50] LABS: EGFR Non-African American 11.2 (>60)
[2018-01-26] MEDS ORDERED: Morphine INJ* 4 MG/ML 1 ML SYRINGE (NEW SYRINGE VERSION) ONE (11:56)
--- NOTE | 2018-01-26 12:06 | RAD ---
HISTORY: Gallstones COMPARISONS: August 17, 2016 TECHNIQUE: Multiple transverse and longitudinal ultrasound images were obtained of the right upper quadrant of the abdomen using grayscale and color Doppler imaging. FINDINGS: LIVER: Multiple simple hepatic cysts are noted throughout the liver. There is normal hepatopedal flow of the portal vein on Doppler imaging. BILIARY TREE: There is no intrahepatic or extrahepatic biliary dilatation. The common duct measures 0.7 cm. GALLBLADDER: The gallbladder is well-visualized. There is no cholelithiasis, gallbladder wall thickening, pericholecystic fluid, or sonographic Rodríguez sign. PANCREAS: The pancreas is obscured by overlying bowel gas. RIGHT KIDNEY: The right kidney is essentially replaced with multiple cysts. There is no appreciable hydronephrosis. There is a questionable calculus of the midpole of the right kidney measuring 0.6 images size. The right kidney measures 23.7 x 12.9 x 13.5 cm. AORTA AND IVC: There is suboptimal visualization of the aorta. The visualized vasculature is unremarkable. FLUID: There are no pleural effusions. There is no free fluid within the hepatorenal recess. OTHER FINDINGS: None. IMPRESSION: 1. THE RIGHT RENAL PARENCHYMA IS ESSENTIALLY REPLACED BY MULTIPLE CYSTS CONSISTENT WITH POLYCYSTIC KIDNEY DISEASE. 2. THERE ARE MULTIPLE CYSTS OF THE LIVER. 3. THERE IS A QUESTIONABLE CALCULUS OF THE MIDPOLE OF THE RIGHT KIDNEY. THERE IS NO APPRECIABLE HYDRONEPHROSIS.
--- NOTE | 2018-01-26 12:55 | RAD ---
CLINICAL HISTORY: Right flank pain COMPARISON: CT abdomen pelvis dated August 17, 2016 TECHNIQUE: Noncontrast CT examination of the abdomen and pelvis from the lung bases through the initial tuberosities. FINDINGS: VISUALIZED LUNG BASES: The visualized lung bases are grossly clear. There is no pleural effusion. ABDOMEN AND PELVIS: Evaluation of the solid organs and vasculature is limited without intravenous contrast. Throughout the liver there are multiple fluid density cysts similar in appearance to the previous CT examination. Many of the low-attenuation foci are too small to measure Hounsfield units on. The liver parenchyma is otherwise homogenous in attenuation. The spleen, pancreas and adrenal glands are grossly normal in appearance. The gallbladder is normal. As was seen on the prior CT examination there is gross enlargement of the bilateral kidneys with the kidneys exhibiting innumerable low density cysts consistent with polycystic kidney disease. At the upper pole collecting system of the right kidney there is a punctate calcification (coronal image 52) similar appearance to the previous CT examination. The right kidney exhibits a maximum sagittal dimension of 26 cm, previously 21.7 cm. In the axial plane the right kidney measures approximately 10.7 x 16.3 cm, slightly larger compared to 10.3 x 14.7 cm on the previous CT examination. Reliable evaluation the collecting system is difficult in the presence of so many cysts distorting the morphology of the kidney.. There appears to be dilatation of the collecting system is unchanged prior CT examination. Left kidney measures 18.5 cm in maximum sagittal dimension unchanged from the prior CT examination. Evaluation of the gastrointestinal tract is limited without oral contrast. The small and large bowel are not distended.The patient's normal appendix is identified in the right lower quadrant measuring 6 mm in diameter (axial image 67). There is no gross retroperitoneal or mesenteric lymphadenopathy. The patient device appears to be appropriately position. There appears to be a small amount of free fluid in the cul-de-sac, an appearance not seen in the previous CT examination. The abdominal aorta and iliac arteries are normal in course and diameter. There are no sinister bone lesions. IMPRESSION: 1. CT findings are consistent with adult polycystic kidney disease not significantly changed since the August 17, 2016 CT examination. There appears to be a slight increase in size of the right kidney in all dimensions relative to the previous CT examination. A stable punctate calcification is noted in the right kidney. There is mild dilatation of the collecting system but this is similar to the previous CT examination. If there is strong clinical concern for obstructive uropathy CT urogram or renal ultrasound may be helpful. 2. Interval appearance of a small amount of free fluid in the cul-de-sac. Please correlate to any gynecologic symptoms. Superior characterization can be made with pelvic ultrasound.
[2018-01-26] MEDS ORDERED: Azithromycin TAB* 250 MG PO ONE (13:18)
--- NOTE | 2018-01-26 13:37 | ED ---
Sarai Terry Julia, scribed for Bayron Haq on 01/26/18 at 1041 . Abdominal Pain/Female - HPI Summary HPI Summary: This patient is a 42 year old F presenting to [facility] with a chief complaint of RUQ abdominal pain since yesterday at 05:00. Patient reports vomiting. Patient denies chest pain, SOB, fever, diarrhea, and hematuria. The patient rates the pain 10/10 in severity. Patient has a hx of polycystic kidney disease and is in stage four renal failure. Patient is still producing urine. - History of Current Complaint Chief Complaint: EDAbdPain Stated Complaint: ABD PAIN Time Seen by Provider: 01/26/18 10:33 Hx Obtained From: Patient Onset/Duration: Sudden Onset, Lasting Days Timing: Constant Pain Intensity: 10 Pain Scale Used: 0-10 Numeric Location: Discrete At: RUQ Radiates: No Associated Signs and Symptoms: Positive: Vomiting. Negative: Fever, Chest Pain , Urinary Symptoms, Diarrhea Allergies/Adverse Reactions: Allergies Allergy/AdvReac Type Severity Reaction Status Date / Time No Known Allergies Allergy Verified 12/22/17 12:50 PMH/Surg Hx/FS Hx/Imm Hx Endocrine/Hematology History: Reports: Hx Anemia Denies: Hx Diabetes, Hx Thyroid Disease Cardiovascular History: Reports: Hx Hypertension Denies: Hx Pacemaker/ICD Respiratory History: Reports: Hx Asthma Denies: Hx Chronic Obstructive Pulmonary Disease (COPD) GI History: Reports: Hx Gastroesophageal Reflux Disease Denies: Hx Ulcer History: Reports: Hx Chronic Renal Failure - stage 4, w/ polycystic kidney disease, Hx Renal Disease Sensory History: Denies: Hx Hearing Aid Neurological History: Reports: Hx Headaches, Hx Migraine, Hx Transient Ischemic Attacks (TIA) Psychiatric History: Reports: Hx Panic Disorder Infectious Disease History: No Infectious Disease History: Denies: Hx Clostridium Difficile, Hx Hepatitis, Hx Human Immunodeficiency Virus (HIV), Hx of Known/Suspected MRSA, Hx Shingles, Hx Tuberculosis, Hx Known/ Suspected VRE, Hx Known/Suspected VRSA, History Other Infectious Disease, Traveled Outside the [place] in Last 30 Days - Family History Known Family History: Positive: Hypertension - Social History Alcohol Use: None Substance Use Type: Reports: None Smoking Status (MU): Former Smoker Type: Cigarettes Amount Used/How Often: 1/2 ppd Review of Systems Negative: Fever Negative: Chest Pain Negative: Shortness Of Breath Positive: Abdominal Pain, Vomiting. Negative: Diarrhea Negative: hematuria All Other Systems Reviewed And Are Negative: Yes Physical Exam - Summary Physical Exam Summary: Appearance: Well appearing, no pain distress Skin: warm, dry, reflects adequate perfusion Head/face: normal Eyes: EOMI, MAX ENT: normal Neck: supple, non-tender Respiratory: CTA, breath sounds present Cardiovascular: RRR, pulses symmetrical Abdomen: RUQ tenderness, soft Bowel: present Musculoskeletal: normal, strength/ROM intact Neuro: normal, sensory motor intact, A&Ox3 Triage Information Reviewed: Yes Vital Signs On Initial Exam: Initial Vitals Temp Pulse Resp BP Pulse Ox 97.7 F 58 20 173/90 97 01/26/18 10:01/26/18 10:01/26/18 10:01/26/18 10:01/26/18 10:26 Vital Signs Reviewed: Yes Diagnostics - Vital Signs Vital Signs Temp Pulse Resp BP Pulse Ox 01/26/18 10: 97.7 F 58 20 173/90 97 - Laboratory Lab Results: Lab Results 01/26/18 01/26/18 01/26/18 Range/Units 11:20 11:20 11:20 WBC 6.7 (3.5-10.8) 10^3/ul RBC 4.47 (4.0-5.4) 10^6/ul Hgb 14.3 (12.0-16.0) g/dl Hct 42 (35-47) % MCV 94 (80-97) fL MCH 32 H (27-31) pg MCHC 34 (31-36) g/dl RDW 14 (10.5-15) % Plt Count 113 L (150-450) 10^3/ul MPV 10.2 (7.4-10.4) um3 Neut % (Auto) 63.2 (38-83) % Lymph % (Auto) 24.8 L (25-47) % Seminole % (Auto) 9.8 H (0-7) % Eos % (Auto) 1.3 (0-6) % Baso % (Auto) 0.9 (0-2) % Absolute Neuts (auto) 4.3 (1.5-7.7) 10^3/ul Absolute Lymphs (auto) 1.7 (1.0-4.8) 10^3/ul Absolute Monos (auto) 0.7 (0-0.8) 10^3/ul Absolute Eos (auto) 0.1 (0-0.6) 10^3/ul Absolute Basos (auto) 0.1 (0-0.2) 10^3/ul Absolute Nucleated RBC 0 10^3/ul Nucleated RBC % 0.1 INR (Anticoag Therapy) 0.87 (0.77-1.02) APTT 31.2 (26.0-36.3) seconds Sodium 135 (133-145) mmol/L Potassium 5.3 H (3.5-5.0) mmol/L Chloride 111 (101-111) mmol/L Carbon Dioxide 21 L (22-32) mmol/L Anion Gap 3 (2-11) mmol/L BUN 35 H (6-24) mg/dL Creatinine 4.32 H (0.51-0.95) mg/dL Est GFR ( Amer) 14.4 (>60) Est GFR (Non-Af Amer) 11.2 (>60) BUN/Creatinine Ratio 8.1 (8-20) Glucose 85 (70-100) mg/dL Lactic Acid (0.5-2.0) mmol/L Calcium 9.0 (8.6-10.3) mg/dL Total Bilirubin 0.40 (0.2-1.0) mg/dL AST 12 L (13-39) U/L ALT 8 (7-52) U/L Alkaline Phosphatase 36 (34-104) U/L Troponin I 0.00 (<0.04) ng/mL Total Protein 5.9 L (6.4-8.9) g/dL Albumin 3.4 (3.2-5.2) g/dL Globulin 2.5 (2-4) g/dL Albumin/Globulin Ratio 1.4 (1-3) Lipase 44 (11.0-82.0) U/L Beta HCG, Quant 0.87 mIU/mL Urine Color Urine Appearance Urine pH (5-9) Ur Specific Story (1.010-1.030) Urine Protein (Negative) Urine Ketones (Negative) Urine Blood (Negative) Urine Nitrate (Negative) Urine Bilirubin (Negative) Urine Urobilinogen (Negative) Ur Leukocyte Esterase (Negative) Urine WBC (Auto) (Absent) Urine RBC (Auto) (Absent) Ur Squamous Epith Cells (Absent) Urine Bacteria (Absent) Urine Glucose (Negative) 01/26/18 01/26/18 Range/Units 11:20 11:25 WBC (3.5-10.8) 10^3/ul RBC (4.0-5.4) 10^6/ul Hgb (12.0-16.0) g/dl Hct (35-47) % MCV (80-97) fL MCH (27-31) pg MCHC (31-36) g/dl RDW (10.5-15) % Plt Count (150-450) 10^3/ul MPV (7.4-10.4) um3 Neut % (Auto) (38-83) % Lymph % (Auto) (25-47) % Seminole % (Auto) (0-7) % Eos % (Auto) (0-6) % Baso % (Auto) (0-2) % Absolute Neuts (auto) (1.5-7.7) 10^3/ul Absolute Lymphs (auto) (1.0-4.8) 10^3/ul Absolute Monos (auto) (0-0.8) 10^3/ul Absolute Eos (auto) (0-0.6) 10^3/ul Absolute Basos (auto) (0-0.2) 10^3/ul Absolute Nucleated RBC 10^3/ul Nucleated RBC % INR (Anticoag Therapy) (0.77-1.02) APTT (26.0-36.3) seconds Sodium (133-145) mmol/L Potassium (3.5-5.0) mmol/L Chloride (101-111) mmol/L Carbon Dioxide (22-32) mmol/L Anion Gap (2-11) mmol/L BUN (6-24) mg/dL Creatinine (0.51-0.95) mg/dL Est GFR ( Amer) (>60) Est GFR (Non-Af Amer) (>60) BUN/Creatinine Ratio (8-20) Glucose (70-100) mg/dL Lactic Acid 0.6 (0.5-2.0) mmol/L Calcium (8.6-10.3) mg/dL Total Bilirubin (0.2-1.0) mg/dL AST (13-39) U/L ALT (7-52) U/L Alkaline Phosphatase (34-104) U/L Troponin I (<0.04) ng/mL Total Protein (6.4-8.9) g/dL Albumin (3.2-5.2) g/dL Globulin (2-4) g/dL Albumin/Globulin Ratio (1-3) Lipase (11.0-82.0) U/L Beta HCG, Quant mIU/mL Urine Color Yellow Urine Appearance Cloudy Urine pH 5.0 (5-9) Ur Specific Story 1.009 L (1.010-1.030) Urine Protein 1+(30 mg/dl) A (Negative) Urine Ketones Negative (Negative) Urine Blood 1+ A (Negative) Urine Nitrate Negative (Negative) Urine Bilirubin Negative (Negative) Urine Urobilinogen Negative (Negative) Ur Leukocyte Esterase 2+ A (Negative) Urine WBC (Auto) Trace(0-5/hpf) (Absent) Urine RBC (Auto) Trace(0-2/hpf) (Absent) Ur Squamous Epith Cells Present A (Absent) Urine Bacteria Absent (Absent) Urine Glucose Negative (Negative) Result Diagrams: 01/26/18 11:20 01/26/18 11:20 Lab Statement: Any lab studies that have been ordered have been reviewed, and results considered in the medical decision making process. - Radiology CXR Radiology Interpretation Completed By: Radiologist - Mild alveolar consolidation likely involving the posterior basal segment of the RIGHT lower lobe concerning for pneumonia. Correlate with clinical assessment. ED Physician has reviewed this report. - CT A/P CT Interpretation Completed By: Radiologist - 1. CT findings are consistent with adult polycystic kidney disease not significantly changed since the August 17, 2016 CT examination. There appears to be a slight increase in size of the right kidney in all dimensions relative to the previous CT examination. A stable punctate calcification is noted in the right kidney. There is mild dilatation of the collecting system but this is similar to the previous CT examination. If there is strong clinical concern for obstructive uropathy CT urogram or renal ultrasound may be helpful. 2. Interval appearance of a small amount of free fluid in the cul-de-sac. Please correlate to any gynecologic symptoms. Superior characterization can be made with pelvic ultrasound. ED Physician has reviewed this report. - EKG 1214 Cardiac Rate: Bradycardia - at 50 BPM EKG Rhythm: Sinus Bradycardia EKG Interpretation: no acute changes. EKG Comparison: No Significant Change - Additional Comments Diagnostic Additional Comments: A US reveals, as per radiologist: 1. THE RIGHT RENAL PARENCHYMA IS ESSENTIALLY REPLACED BY MULTIPLE CYSTS CONSISTENT WITH POLYCYSTIC KIDNEY DISEASE. 2. THERE ARE MULTIPLE CYSTS OF THE LIVER. 3. THERE IS A QUESTIONABLE CALCULUS OF THE MIDPOLE OF THE RIGHT KIDNEY. THERE IS NO APPRECIABLE HYDRONEPHROSIS. ED Physician has reviewed this report. Re-Evaluation - Re-Evaluation 1 Re-Evaluation Time: 13:15 Comment: Discussed results with patient. Patient will be discharged. Abdominal Pain Fem Course/Dx - Course Course Of Treatment: Patient presents with RUQ abdominal pain since yesterday at 05:00. Patient reports vomiting. Patient denies chest pain, SOB, fever, diarrhea, and hematuria. A CXR is indicative of PNA. An EKG is of no acute concern. CT A/P is consistent with chronic polycystic kidney disease and previous imaging. CT reveals a stable punctate calcification is noted in the right kidney. UA reveals blood. with Patient is given Zithromax, Morphine, and Zofran. Patient is discharged and instructed to follow up with her primary care physican. - Diagnoses Differential Diagnosis: Positive: Diverticulitis, Gall Bladder Disease, Pancreatitis, Pneumonia, Renal Colic, Urinary Tract Infection Provider Diagnoses: PNA (pneumonia), Flank pain Discharge - Sign-Out/Discharge Documenting (check all that apply): Discharge - Discharge Plan Condition: Stable Disposition: HOME Prescriptions: Azithromycin TAB* [Zithromax TAB (Z-ERNESTO) 250 mg #6 tabs] 250 mg PO DAILY #4 tab Patient Education Materials: Pneumonia (ED) Referrals: Regi Garnica [Primary Care Provider] - 3 Days (Follow up with your primary care physician in the next three days.) - Billing Disposition and Condition Condition: STABLE Disposition: HOME The documentation as recorded by the Sarai ewing Julia accurately reflects the service I personally performed and the decisions made by , Bayron Haq.
[2018-01-26 13:51] VITALS: BP 166/96
== END 2018-01-26 13:49 | disposition home or self-care (01) ==
LOC: ED 10:25
DX: J18.9 Pneumonia, unspecified organism (principal); R10.84 Generalized abdominal pain; R11.10 Vomiting, unspecified; R10.11 Right upper quadrant pain; Z87.891 Personal history of nicotine dependence
CPT/HCPCS: 36415; 71045; 74176; 76705; 80053; 81003; 81015; 83605; 83690; 84484; 84702; 85025; 85610; 85730; 87086; 93005; 96374; 96375; 99282; A9270-GY; J2270; J2405

== ENCOUNTER 2018-03-06 08:36 | Day surgery (SDC) | payer OTHER ==
--- NOTE | 2018-03-04 13:15 | HP ---
HISTORY AND PHYSICAL: DATE OF ADMISSION: 03/06/18 CHIEF COMPLAINT: End-stage renal disease. HISTORY OF PRESENT ILLNESS: The patient is a 42-year-old female with history of polycystic kidneys and high creatinine with stage 5 renal insufficiency secondary to polycystic kidneys. The patient is being admitted today for creation of arteriovenous fistula or an AV graft depending on the quality of the vessels anticipating the patient will start hemodialysis within the next 8 weeks. The patient is currently not receiving dialysis and is a potential candidate for nephrectomy on the right side and for this reason, not an ideal candidate for peritoneal dialysis. PAST MEDICAL HISTORY: Remarkable for polycystic kidneys, history of asthma, history of uncontrolled hypertension, history of tobacco use that she smoked half a pack a day for 15 years and quit 1 year ago. CURRENT MEDICATIONS: Include: 1. Lisinopril 40 mg daily. 2. Advair Diskus 250/50 mcg dose. 3. Baclofen 10 mg b.i.d. 4. Cartia XT 120 mg daily. 5. Diltiazem ER beads 240 mg daily. 6. Escitalopram oxalate 10 mg p.o. daily. 7. Ipratropium bromide/albuterol sulfate 0.5/2.5 mg per 3 mL. 8. Furosemide 20 mg p.o. daily. 9. Mapap Arthritis Pain 650 mg p.o. daily. 10. Omeprazole 40 mg p.o. daily. 11. Cetirizine 10 mg p.o. daily. 12. Nortriptyline 25 mg p.o. daily. 13. Oxycodone/acetaminophen 5/325 as needed. 14. Vitamin B12 5000 mcg. 15. Multivitamins. 16. Clonidine 0.1 mg p.o. daily. ALLERGIES: The patient has no known allergies. FAMILY HISTORY: Remarkable for her father having polycystic kidney disease and prostate cancer. Mother has history of COPD. REVIEW OF SYSTEMS: As above mentioned. The patient denies any cardiorespiratory problems other than the asthma as above mentioned. PHYSICAL EXAMINATION GENERAL: The patient is alert and oriented, in no acute distress. VITAL SIGNS: Weight is 238 pounds, height is 67 inches, blood pressure is 153/ 109, BMI of 37.3, pulse of 87, respirations of 18. Pain level at the time of the examination ranges up to 8 related to her right kidney. HEAD AND NECK: Reveal no neck nodes or masses. No JVD is noted. No scars in the neck or subclavian area are noted. The patient is an obese individual, has redundant skin and flabby tissue on both arms. The patient has excellent palpable pulses at the radial, brachial, and axillary bilaterally. LUNGS: There are no abnormalities in the chest. ABDOMEN: Soft, globular, tender towards the right upper quadrant, but mildly. EXTREMITIES: The Thomas test performed on the right and left hand is completely negative. There are no visible veins. The only visible veins are in the antecubital fossa on the left forearm. The lower extremity examination is completely unremarkable. DIAGNOSTIC STUDIES: A Duplex venous scan performed in the upper extremities for evaluation of size of the veins and arteries reveals the right radial artery measures 2.7 mm with normal flow. The right basilic vein measures 6.1 mm. The right cephalic vein at the wrist is 3.6 mm with a depth of 3.8 mm. The left cephalic vein at the wrist is 2.7 mm. The mid cephalic on the left appears to be thickened by prior use of an IV. The left radial diameter is 3.4 mm with normal pulsatile flow. The cephalic vein at the arm is 3.4 mm in diameter; however, in the upper segment is 9.9-mm deep. The basilic vein on the left side is 4.8 mm and is also deep as well. The basilic vein in the mid arm is 4.7 mm. Based on these findings, the patient's vessels appeared to be somewhat deep. However, the arterial flow and the size of the veins on the right wrist cephalic appeared to be adequate for anastomosis of an arteriovenous fistula or possibly the cephalic vein on the left side. However, we did discuss the use of a graft for dialysis since the vessels appeared to be somewhat deep and even if properly mature, cannulation has a potential problem. For now, we will consider all options and reevaluate at the time of the surgery. IMPRESSION: Diagnostic impression is that of end-stage renal disease. PLAN: The plan is for placement of either a augustine arteriovenous fistula, possibly the right wrist versus a left Hammond-Quintin graft fistula. The patient understands that there are potential complications including the possibility of no maturation of the fistula, occlusion, infection, bleeding, hematoma. The patient understands, agrees, and wishes to proceed. [id number]/[facility] #: [id number] [facility] [place]
[~2018-03-06 08:36] MED LIST changes: +Buffered Lidocaine 0.9% SYRIN* 5 ML/SYR SYRINGE INTRADERM ONE; -Ketorolac INJ* 30 MG/ML 1 ML VIAL IV PUSH ONE; -Magnesium Oxide TAB* 400 MG PO ONE; -Meclizine TAB* 12.5 MG PO ONE; -Metoclopramide IV* 5 MG/ML 2 ML VIAL IV ONE; +NS 0.45% 1000 ML BAG* 1,000 ML IV SCH; -Ondansetron INJ* 2 MG/ML VIAL IV ONE
[2018-03-06] MEDS ORDERED: Dexamethasone IV* 4 MG/ML 1 ML (4 MG) ONE (08:37)
[2018-03-06] MEDS ORDERED: Buffered Lidocaine 0.9% SYRIN* 5 ML/SYR SYRINGE ONE (08:37)
[2018-03-06] MEDS ORDERED: ceFAZolin 2 GM PREMIX (*) 2 GM/50 ML BAG IVPB ONE (08:37)
[2018-03-06] MEDS ORDERED: Heparin DIALYSIS ONLY(*) 1,000 UNITS/ML VIAL ONE (08:38)
[2018-03-06] MEDS ORDERED: Lidocaine 1% INJ* 10 MG/ML 30 ML SDV ONE (08:38)
[2018-03-06] MEDS ORDERED: Propofol* 10 MG/ML 20 ML BTL IV PUSH ONE ×3 (08:54→12:05)
[2018-03-06] MEDS ORDERED: Lidocaine 2% PF * 5 ML VIAL ONE (08:54)
[2018-03-06] MEDS ORDERED: Ondansetron INJ* 2 MG/ML VIAL ONE (08:54)
[2018-03-06] MEDS ORDERED: Dexamethasone IV* 4 MG/ML 1 ML (4 MG) IV SLOW PU ONE (09:31)
[2018-03-06] MEDS ORDERED: fentaNYL* 50 MCG/ML 2 ML VIAL (100 MCG VIAL) ONE (09:43)
[2018-03-06] MEDS ORDERED: Midazolam* 1 MG/ML 5 ML VIAL (5 MG) ONE ×2 (09:43→10:32)
[2018-03-06] MEDS ORDERED: Naloxone* 0.4 MG/ML 1 ML VIAL IV PRN (10:56)
[2018-03-06] MEDS ORDERED: Lidocaine 0.5%* 50 ML SDV ONE (11:20)
[2018-03-06] MEDS ORDERED: Heparin VIAL(*) 5000 UNITS/ML VIAL (FIVE THOUSAND) ONE (11:52)
[2018-03-06] MEDS ORDERED: Bupivacaine 0.5%* 50 ML VIAL ONE (11:55)
[2018-03-06 14:53] VITALS: BP 142/71
--- NOTE | 2018-03-07 03:09 | OP ---
DATE OF OPERATION: 03/06/18 [facility] DATE OF : 75 SURGEON: Abraham Barajas MD QUALITY PROCESS LEAD: Jessa Meraz NP ANESTHESIA: Local plus MAC. PRE-OP DIAGNOSIS: End-stage renal disease. POST-OP DIAGNOSIS: End-stage renal disease. OPERATIVE PROCEDURE: 1. Arteriovenous Lockhart-Quintin graft, brachiocephalic. 2. Exploration of the distal cephalic vein. ESTIMATED BLOOD LOSS: Less than 20 cc. INDICATIONS: The patient is a 42-year-old female with a history of end-stage renal disease that will require hemodialysis within the next 8 weeks. The patient was assessed preoperatively. She is morbidly obese with veins that appeared to be adequate size on ultrasound, but deep through the skin; however, as an attempt to get in the arteriovenous fistula more distal, first the plan was to explore the right radiocephalic area, which appeared to be the most conducive to a [place] AV fistula, and if this was not adequate, then switch to a graft. DESCRIPTION OF PROCEDURE: The patient underwent ultrasound mapping prior to the surgery. She received pre-operative antibiotics. After she was taken to the operating room, she was prepped and draped in the usual sterile fashion exposing the right side, which appeared to have the bigger and better vessels for dialysis. After this was done, under sedation, lidocaine 1% was used to infiltrate at the radial aspect of the left arm. The incision was carried down through the skin, subcutaneous tissue. Identification of the cephalic vein was done. The cephalic vein appeared to be deep, approximately more than 0.5 cm deep and the vein was very small and appeared to be in spasm with less than 2 mm in diameter. It was felt that this was not an adequate conduit for dialysis and it would not mature in time for the patient's required dialysis in approximately 8 weeks. For this reason, a choice was made to proceed with a graft. After this was done, lidocaine 1% was used to infiltrate at the level of the antecubital fossa. A transverse incision was then performed. The incision was carried down through the skin, subcutaneous tissue. We then proceeded to identify the cephalic vein, which was dissected up and down the vein communicans and connecting towards the basilic vein, which was well identified. After this, vessel loops were placed around the cephalic vein, vena communicans and the collaterals were encircled with vessel loops. After this was completed, the brachial artery which appeared to be of a relatively small caliber was isolated. At this point, it was encircled in vessel loops proximally and distally and once this was done, we then proceeded to use a Propaten taper for a 7 mm graft since the vein appeared to be of a small caliber. The inner part of the loop would drain the arterial side and the outside of the loop would bring the venous side. We then proceeded to tunnel the graft using a curved metal tunneler with a counterincision in the forearm, the venous side again towards the lateral side and the arterial side towards the medial side. After this was done, we then proceeded to make sure the graft was in good position superficial enough and there was no bleeding. The patient received then 3500 units of heparin and we then proceeded to cross-clamp the cephalic vein, vena communicans, and the graft was then cut to size of the anastomosis and we then proceeded to perform the anastomosis between the graft and the vein using 6-0 Prolene running, and after this was done, the catheter was irrigated with heparinized saline. There appeared to be good flow into the veins and after this was done, we then proceeded to perform the arterial anastomosis after cross-clamping the brachial artery proximally and distally transecting the 4 mm end of the graft flush to match the arteriotomy and again the anastomosis was performed with running 6-0 Prolene suture as well. After this was completed, the clamps were released, flow established into the graft. There was excellent thrill. There was audible pulse at the radial, good capillary refill of the hand. There was evidence of pulsatile flow in the cephalic vein, vena communicans, and basilic vein as well. After this was completed, the area was checked for hemostasis. No bleeding was noted from the anastomosis. The incisions were then closed, subcutaneous tissue with interrupted 4-0 Vicryl suture and the skin with a subcuticular 4-0 Vicryl and Dermabond. After this was completed, the patient was taken in good condition to recovery room. [id number]/[facility] #: [id number] JOSSELINE
== END 2018-03-06 15:00 | disposition home or self-care (01) ==
LOC: OR 08:36
PROVIDERS: ATTEND Surgery
DX: N18.6 End stage renal disease (principal); Q61.3 Polycystic kidney, unspecified; J45.909 Unspecified asthma, uncomplicated; I10 Essential (primary) hypertension; Z87.891 Personal history of nicotine dependence; K21.9 Gastro-esophageal reflux disease without esophagitis
CPT/HCPCS: 81025; C1768; J0690; J1100; J1644; J2250; J2405; J2704; J3010

== ENCOUNTER 2018-05-13 09:48 | Day surgery (SDC) | payer OTHER ==
[~2018-05-13 09:48] MED LIST changes: +Famotidine IV* 10 MG/ML 2 ML (20 mg) IV ONE; -NS 0.45% 1000 ML BAG* 1,000 ML IV SCH
[2018-05-13] MEDS ORDERED: fentaNYL* 50 MCG/ML 2 ML VIAL (100 MCG VIAL) ONE ×2 (09:59→13:06)
[2018-05-13] MEDS ORDERED: Famotidine IV* 10 MG/ML 2 ML (20 mg) ONE (09:59)
[2018-05-13] MEDS ORDERED: Midazolam* 1 MG/ML 5 ML VIAL (5 MG) ONE ×2 (09:59→10:12)
[2018-05-13] MEDS ORDERED: ceFAZolin 2 GM PREMIX (*) 2 GM/50 ML BAG IVPB ONE (09:59)
[2018-05-13] MEDS ORDERED: Midazolam* 1 MG/ML 2 ML VIAL (2 MG) IV ONE (10:25)
[2018-05-13] MEDS ORDERED: Heparin DIALYSIS ONLY(*) 1,000 UNITS/ML VIAL ONE (12:19)
[2018-05-13] MEDS ORDERED: Bupivacaine 0.25% W/EPI* 10 ML SDV ONE ×2 (12:19→13:26)
[2018-05-13] MEDS ORDERED: Acetaminophen TAB* 325 MG PO PRN (12:37)
[2018-05-13] MEDS ORDERED: Naloxone* 0.4 MG/ML 1 ML VIAL IV PRN (12:37)
[2018-05-13] MEDS ORDERED: oxyCODONE TAB* 5 MG TAB PO PRN (12:37)
[2018-05-13] MEDS ORDERED: DiMENhydriNATE IV* 50 MG/ML VIAL IV PUSH PRN (12:37)
[2018-05-13] MEDS ORDERED: Atracurium* 10 MG/ML 10 ML VIAL ONE (12:48)
[2018-05-13] MEDS ORDERED: Lidocaine 2% PF * 5 ML VIAL ONE (13:04)
[2018-05-13] MEDS ORDERED: Ondansetron INJ* 2 MG/ML VIAL ONE (13:04)
[2018-05-13] MEDS ORDERED: Dexamethasone IV* 4 MG/ML 1 ML (4 MG) ONE (13:04)
[2018-05-13] MEDS ORDERED: Propofol* 10 MG/ML 20 ML BTL IV PUSH ONE (13:04)
--- NOTE | 2018-05-13 13:40 | BRIEFOPN ---
Brief Operative Note - Surgery Procedures: Pre-OP Diagnoses: ESRD Post-op Diagnosis: same Procedure: Laparoscopic placement of peritoneal dialysis catheter- buried Surgeon: Jessica Asst: brooke JORGENSEN Anethesia: BELEM Watters EBL: minimal IVF: minimal Specimen: none Drains: 62cm antonolga
[2018-05-13] MEDS ORDERED: Glycopyrrolate IV* 0.2 MG/ML 1 ML VIAL ONE (13:42)
[2018-05-13] MEDS ORDERED: Neostigmine Methylsulfate* 1 MG/ML 10 ML VIAL (1 mg/ml) ONE (13:42)
[2018-05-13] MEDS ORDERED: DiMENhydriNATE IV* 50 MG/ML VIAL ONE (13:51)
[2018-05-13] MEDS ORDERED: HYDROmorphone INJ* 0.5 MG/0.5 ML SYRINGE ONE (14:12)
[2018-05-13] MEDS: HYDROmorphone INJ* 0.5 MG/0.5 ML SYRINGE IV PRN ×2 (14:14→14:30)
[2018-05-13] MEDS ORDERED: oxyCODONE TAB* 5 MG TAB ONE (14:41)
[2018-05-13 15:44] VITALS: BP 141/82
--- NOTE | 2018-05-14 08:16 | OP ---
CC: Dr. Shakeel Gonzalez; Regi Garnica * DATE OF OPERATION: 05/13/18 - [facility] DATE OF : 75 SURGEON: Marcos Lopez MD WEAVE DEFECT CHARTING CLERK: CONY Keys ANESTHESIOLOGIST: Dr. Stringer. ANESTHESIA: General. PRE-OP DIAGNOSIS: Endstage renal disease. POST-OP DIAGNOSIS: Endstage renal disease. OPERATIVE PROCEDURE: Laparoscopic placement of peritoneal dialysis catheter - buried. ESTIMATED BLOOD LOSS: Minimal blood loss. FLUIDS: Minimal crystalloid fluid given. SPECIMEN: None. DRAINS: A 62 cm curl cath placed into the abdomen. DESCRIPTION OF PROCEDURE: The patient was identified in the preoperative area. Consent was signed. I marked her including where we would have the exit site for the dialysis catheter. The patient was taken to the operating room, placed on the operating table in the supine position. Preoperative antibiotics were given. Sequential devices were placed on bilateral lower extremities and general anesthesia was induced. The patient's abdomen was prepped and draped in the standard surgical fashion and a time-out was performed. A subcostal incision was made in the left upper quadrant. This was deepened down the anterior fascia which was elevated and a Veress needle inserted into the abdominal cavity which was then allowed to insufflate to a pressure of 15 mmHg. The patient tolerated insufflation well. An 8 mm Optiview trocar was then inserted under direct vision into the abdominal cavity. Veress needle was removed and there was no evidence of injury from the trocar insertion or from the Veress needle. The omentum was clearly identified throughout the exposed abdomen. It was reflected superiorly after placing a 5 mm trocar in the left lateral side. We were able to reflect the omentum superiorly. The small bowel was also brought out of the pelvis. We could see the large mass consistent with polycystic kidney disease. Next, a 62 cm Covidien curl cath was then opened up. It was inserted into the abdomen. It was placed posterior to the uterus. We looked into the site. There was a scant amount of free fluid at the site. The catheter lay in appropriate position at this area. Next a 5 mm trocar was tunneled along the left rectus muscle under direct vision. This entered into the abdomen and catheter was removed in a tunneled fashion within the rectus muscle. Next, an omentopexy was performed using a 0 Polysorb suture at the right upper quadrant incision site and tacking the omentum high up on the right upper quadrant. The tubing lay in the appropriate positioning. It was then the abdomen was allowed to collapse. We then tunneled the catheter in the appropriate fashion to the exit site. We hooked it up to the dialysate, which was infused easily and was also drained. Hemostasis was excellent. We allowed the abdomen to collapse. Trocars were removed under direct vision and all skin incisions were reapproximated with 4- 0 Monocryl subcuticular sutures after burying the catheter inferiorly from its initial exit site. [id number]/[facility] #: [id number] MTDD
== END 2018-05-13 15:45 | disposition home or self-care (01) ==
LOC: OR 09:48
PROVIDERS: ATTEND Surgery
DX: N18.6 End stage renal disease (principal); Q61.3 Polycystic kidney, unspecified; Z87.891 Personal history of nicotine dependence; I12.0 Hypertensive chronic kidney disease with stage 5 chronic kidney disease or end stage renal disease; Z99.2 Dependence on renal dialysis; K21.9 Gastro-esophageal reflux disease without esophagitis; E66.9 Obesity, unspecified
CPT/HCPCS: 81025; A9270-GY; J0690; J1100; J1170; J1240; J1644; J2250; J2405; J2704; J2710; J3010

== ENCOUNTER → 2018-09-16 12:58 | Day surgery (SDC) | payer MEDICARE, MEDICAID ==
[~2018-09-16 12:58] MED LIST changes: +Dexamethasone TAB* 4 MG ONE; +Dexamethasone TAB* 4 MG PO ONE; +DiMENhydriNATE IV* 50 MG/ML VIAL IV PUSH PRN; +Famotidine IV* 10 MG/ML 2 ML (20 mg) ONE; +KETAMINE HCL* 50 MG/ML 10 ML VIAL ONE; +Midazolam* 1 MG/ML 5 ML VIAL (5 MG) ONE; +Morphine VIAL* 10 MG/ML 1 ML VIAL ONE; +Morphine VIAL* 4 MG/ML VIAL (1 ml vial) IV PRN; +NS 0.45% 1000 ML BAG* 1,000 ML IV SCH; +Naloxone* 0.4 MG/ML 1 ML VIAL IV PRN; +Ondansetron ODT TAB* 4 MG ONE; +Ondansetron TAB* 4 MG PO ONE; +PROCHLORPERAZINE INJ 5 MG/ML 2 ML VIAL IV PRN; +Phenylephrine INJ* 10 MG/ML 1 ML VIAL (10 MG) ONE; +Propofol* 500 MG/50 ML BTL ONE; +ceFAZolin 2 GM in NS PREMIX(*) 2 GM/100 ML BAG IVPB ONE; +fentaNYL* 50 MCG/ML 2 ML VIAL (100 MCG VIAL) IV PRN; +fentaNYL* 50 MCG/ML 2 ML VIAL (100 MCG VIAL) ONE; +oxyCODONE/Acetamin 5/325 MG* TAB PO PRN
[2018-09-16 14:29] LABS: EGFR Non-African American 7.9 (>60)
--- NOTE | 2018-09-16 15:53 | OP ---
Operative Report - Blank - Operative Report Date of Operation: 09/16/18 Note: Preop Dx: Umbilical hernia Postop Dx: same Procedure: open repair umbilical hernia (primary) Anesthesia: local MAC Surgeon: Jessica Asst: SUZANNE Weeks Fluids: 550 ml EBL: none Drains: none Specimen: none Findings: dictated
[2018-09-16 16:33] VITALS: BP 98/56
--- NOTE | 2018-09-17 06:59 | OP ---
CC: Dr. Shakeel Gonzalez; [facility] OPERATIVE REPORT: DATE OF OPERATION: 09/16/18 DATE OF : 75 SURGEON: Marcos Lopez MD [employer] REPAIRER: SPRING Malone Student ANESTHESIOLOGIST: Dr. Lyons. ANESTHESIA: Local MAC anesthesia. PRE-OP DIAGNOSIS: Umbilical hernia. POST-OP DIAGNOSIS: Umbilical hernia. OPERATIVE PROCEDURE: Open umbilical hernia. SPECIMENS: None. COUNTS: Lap, pad count and instrument count correct at the end of the procedure. COMPLICATIONS: None. DESCRIPTION OF PROCEDURE: The patient was identified in the preoperative area. She was marked, conse nt was signed. She was brought to the operating room, placed on the operating table in a supine posi tion. Preoperative antibiotics were given. Sequential devices were placed on bilateral lower extremi ties. Gentle sedation was given. The patient's abdomen was prepped and draped in standard surgical fashion ensuring that the PD catheter was outside of the prepped area. A time-out was performed. A supraumbilical up and down incision was made. This was deepened down to the anterior fascia. No e pigastric hernia was identified, but the umbilical stalk was appreciated and this was consistent with hernia. We isolated the umbilical stalk around a Mcnabb drain and sharply lysed it off of the laura ia sac. Hernia sac was then entered and we ligated portion of it and after freeing up some of the co ntents, we dunked this back under the fascia which had been cleared off. The defect was approximatel y 1.5 cm and we approximated with interrupted 0 and #1 Prolene sutures. We irrigated the wound, tack ed the umbilical skin with 2-0 Vicryl stitch and then closed the incision in a standard fashion. Liam rile dressing was applied. The patient tolerated the procedure well, was woken up in the ER, and tra nsferred to the PACU in stable condition. [id number]/[facility] #: [id number]
== END | disposition home or self-care (01) ==
LOC: OR 12:58
PROVIDERS: ATTEND Surgery
DX: K42.9 Umbilical hernia without obstruction or gangrene (principal); Z87.891 Personal history of nicotine dependence; F41.8 Other specified anxiety disorders; K21.9 Gastro-esophageal reflux disease without esophagitis; I12.9 Hypertensive chronic kidney disease with stage 1 through stage 4 chronic kidney disease, or unspecified chronic kidney disease; J45.909 Unspecified asthma, uncomplicated; N18.6 End stage renal disease; Z99.2 Dependence on renal dialysis
CPT/HCPCS: 36415; 80048; 81025; A9270-GY; J0690; J2250; J2270; J2704; J3010; J8540

== ENCOUNTER 2018-11-16 21:49 | Inpatient (IN) | payer MEDICARE, MEDICAID ==
[2018-11-16 22:22] LABS: ABS Basophils 0.1 10^3/ul (0-0.2); ABS Eosinophils 0.3 10^3/ul (0-0.6); ABS Lymphocytes 1.3 10^3/ul (1.0-4.8); ABS Monocytes 0.9 10^3/ul (0-0.8); ABS Neutrophils 6.1 10^3/ul (1.5-7.7); ABS Nucleated RBC 0 10^3/ul; Eosinophil % 3.3 %; Hematocrit 54 % (35-47); Hemoglobin 18.5 g/dl (12.0-16.0); Lymphocyte % 15.2 %; Mean Corpuscular HGB Conc 35 g/dl (31-36); Mean Corpuscular Hemoglobin 34 pg (27-31); Mean Corpuscular Volume 98 fL (80-97); Mean Platelet Volume 10.3 fL (7.4-10.4); Nucleated Red Blood Cells % 0; Platelet Count 108 10^3/ul (150-450); Red Blood Count 5.46 10^6/ul (4.00-5.40); Red Cell Distribution Width 15 % (10.5-15); White Blood Count 8.6 10^3/ul (3.5-10.8)
[2018-11-16 22:31] LABS: INR 0.92 (0.77-1.02)
[2018-11-16 22:37] LABS: Albumin 4.1 g/dL (3.2-5.2); Albumin/Globulin Ratio 1.2 (1-3); Calcium 9.7 mg/dL (8.6-10.3); EGFR Non-African American 6.3 (>60); Globulin 3.4 g/dL (2-4); Potassium 5.1 mmol/L (3.5-5.0); Total Bilirubin 0.4 mg/dL (0.2-1.0); Total Protein 7.5 g/dL (6.4-8.9)
--- OUTSIDE RECORDS SUMMARY | 2018-11-16 22:48 | XMS REPORT | Continuity of Care Document ---
:1975 External Reference #:[id number] Author Name Dana Phipps Care Team Providers Name Role Phone Regi Garnica, SUZY Primary Care Physician Unavailable Payers Type Date Identification Numbers Payment Provider Subscriber Expires: 2018 Policy Number: [id number] Medicare Buffy Brantley PayID: [id number] [address] [place] [address] Effective: 2018 Policy Number: [id number] Medicaid Buffy Brantley Group Name: 1 1 [address] PayID: [id number] [place] [address] Expires: 2018 Policy Number: [id number] Matt Buffy Brantley Group Number: [id number] [address] PayID: [id number] [place] [address] Advance Directives Description No Information Available Problems Date Description Provider Status Onset: 10/31/2015 [...] Migraine Social History Type Date Description Comments Sex Unknown Marital Status Lives With ETOH Use Rarely consumes alcohol Tobacco Use Start: Unknown End: Patient is a former quit in 2013 Unknown smoker Recreational Drug Use Never Used Drugs Smoking Status Reviewed: 10/26/18 Patient is a former quit in 2013 smoker Exercise Type/Frequency Exercises rarely Allergies, Adverse Reactions, Alerts Description No Known Drug Allergies Medications Medication Date Status Form Strength Qnty SIG Indications Ordering Provider Topiramate 11/28/ Active Tablets 25mg 60tab 1 tablet R51 Carly 2018 s at night MD Kp x2 weeks then if needed increase to 2 tablets at night B12 Fast 08/31/ Active Tablets 5000mcg 90tab sl daily Shakeel Dissolve 2017 Dispers s [place] Nortriptyline 10/31/ Active Capsules 25mg 60cap take 1 G43.109 Carly HCL 2014 s capsules MD Kp at night Calcitriol / Active Capsules 0.25mcg 1 by mouth Unknown 0000 every day Montelukast / Active Tablets 10mg 1 by mouth Unknown Sodium 0000 every day Lisinopril / Active Tablets 40mg 1 by mouth Unknown 0000 every day Omeprazole / Active Capsules DR 40mg 1 by mouth Unknown 0000 every day Escitalopram / Active Tablets 10mg 1 by mouth Unknown Oxalate 0000 every day Ventolin HFA / Active Aerosol 108(90Base 2 puffs by Unknown 0000 ) mcg/Act mouth four times a day as needed Ipratropium / Active Solution 0.02% as needed Unknown Boaz 0000 Albuterol / Active Nebulizer (2.5mg/3ML as needed Unknown Sulfate 0000 ) 0.083% Percocet / Active Tablets 5-325mg as needed Unknown 0000 pain Furosemide / Active Tablets 20mg 1 by mouth Unknown 0000 in the morning Baclofen / Active Tablets 10mg take 1/2 Unknown 0000 tab every 8 hours as needed for muscle spasm Vitamin D / Active Capsules 1000Unit 2 [...] mouth Unknown -MG Supplement 0000 every day Simvastatin / Active Tablets 20mg 1 tablet Unknown 0000 by mouth daily Oxycodone-Aceta / Active Tablets 5-325mg 1-2 tabs Unknown minophen 0000 by mouth every 4-6 hours as needed for pain Aspirin Low / Active Chewtabs 81mg take 1 Unknown Dose 0000 chew tab by mouth every day Keflex 10/05/ Hx Capsules 500mg 14cap 1 tablet L76.34 Marcos Diaz 2018 s every 12 Bollo, hours for , FACS 7 days Hydrocodone-Markell 09/10/ Hx Tablets 5-325mg 14tab 1 tablet K42.9 Marcos Diaz taminophen 2018 s by mouth Bollo, every 4 MD, FACS hours as needed pain Doxycycline 07/13/ Hx Tablets DR 100mg 1 tablet N18.6 Marcos Diaz Hyclate 2018 PO q daily Bollo, for 5 days , FACS qty: 5 Bactrim DS 07/13/ Hx Tablets 800-160mg 14tab 1 tablet N18.6 Marcos PLeonora 2018 s by mouth Bollo, twice a , FACS day for 7 days Lidocaine HCL 09/05/ Hx Cream 3% 85gm apply M54.2 Shakeel 2016 twice a Lisette, day as M.D. needed to painful areas. Aspercreme 08/29/ Hx Cream 4% 6unit apply [...] by mouth Unknown 0000 - twice a 07/10/ day 2017 Nortriptyline / Hx Capsules 25mg 1 by mouth Unknown HCL 0000 - every 10/31/ night at 2014 bedtime Hydroxyzine HCL / Hx Tablets 10mg every 8h Unknown 0000 as needed Meclizine HCL / Hx Chewtabs 25mg 1 tab Unknown 0000 every 8 hours as needed for dizziness Aspirin Ec / Hx Tablets DR 81mg 1 by mouth Unknown 0000 daily Immunizations Description No Information Available Vital Signs Date Vital Result Comment 10/26/2018 10:05am Heart Rate 76 /min Respiratory Rate 16 /min Body Temperature 97.6 F 10/12/2018 10:10am Heart Rate 74 /min Respiratory Rate 16 /min Body Temperature 97.7 F 10/05/2018 10:43am Heart Rate 78 /min BP Systolic Sitting 98 mmHg BP Diastolic Sitting 66 mmHg Respiratory Rate 18 /min Body Temperature 97.2 F 09/25/2018 10:42am Heart Rate 78 /min BP Systolic Sitting 88 mmHg BP Diastolic Sitting 58 mmHg Respiratory Rate 18 /min Body Temperature 96.6 F 09/10/2018 1:22pm Height 67 inches 5'7" Weight 230.00 lb Heart Rate 84 /min BP Systolic Sitting 112 mmHg BP Diastolic Sitting 82 mmHg Respiratory Rate 18 /min Body Temperature 97.2 F BMI (Body Mass Index) 36.0 kg/m2 07/20/2018 11:02am Heart Rate 84 /min Respiratory Rate 16 /min Body Temperature 97.1 F 07/13/2018 10:21am Heart Rate 68 /min BP Systolic 122 mmHg BP Diastolic 78 mmHg Respiratory Rate 16 /min Body Temperature 98.5 F 05/22/2018 9:41am Heart Rate 90 /min BP Systolic Sitting 138 mmHg BP Diastolic Sitting 82 mmHg Respiratory Rate 18 /min Body Temperature 97.1 F 04/20/2018 8:40am Height 67 inches 5'7" Weight 234.00 lb Heart Rate 68 /min BP Systolic 122 mmHg BP Diastolic 80 mmHg Respiratory Rate 16 /min Body Temperature 97.7 F BMI (Body Mass Index) 36.6 kg/m2 11/28/2017 1:54pm Height 67 inches 5'7" Weight 239.38 lb Heart Rate 70 /min BP Systolic 126 mmHg BP Diastolic 80 mmHg Respiratory Rate 14 /min BMI (Body Mass Index) 37.5 kg/m2 09/29/2017 3:04pm Height 67 inches 5'7" Weight 240.00 lb Heart Rate 78 /min BP Systolic Sitting 140 mmHg BP Diastolic Sitting 91 mmHg Respiratory Rate 14 /min Pain Level 9 BMI (Body Mass Index) 37.6 kg/m2 08/25/2017 12:40pm Height 67 inches 5'7" Weight 236.12 lb Heart Rate 81 /min BP Systolic Sitting 163 mmHg BP Diastolic Sitting 103 mmHg Respiratory Rate 14 /min Pain Level 8 BMI (Body Mass Index) 37.0 kg/m2 08/04/2017 8:29am Height 67 inches 5'7" Weight 241.50 lb Heart Rate 76 /min BP Systolic 122 mmHg BP Diastolic 88 mmHg BMI (Body Mass Index) 37.8 kg/m2 07/11/2017 8:19am Height 67 inches 5'7" Weight 238.00 lb Heart Rate 80 /min BP Systolic 136 mmHg BP Diastolic 94 mmHg BMI (Body Mass Index) 37.3 kg/m2 06/13/2017 3:01pm Height 67 inches 5'7" Weight 227.00 lb Heart Rate 77 /min BP Systolic Sitting 130 mmHg BP Diastolic Sitting 80 mmHg Respiratory Rate 17 /min BMI (Body Mass Index) 35.5 kg/m2 01/31/2016 10:39am Height 67 inches 5'7" Weight 238.00 lb Heart Rate 62 /min BP Systolic Sitting 150 mmHg BP Diastolic Sitting 90 mmHg Respiratory Rate 17 /min BMI (Body Mass Index) 37.3 kg/m2 10/31/2015 10:54am Height 67 inches 5'7" Weight 238.00 lb Heart Rate 72 /min BP Systolic Sitting 136 mmHg BP Diastolic Sitting 84 mmHg Respiratory Rate 16 /min BMI (Body Mass Index) 37.3 kg/m2 Results Test Date Facility Test Result H/L Range Note Basic Metabolic 09/16/2018 [facility] Sodium 133 mmol/L Low 135-145 Panel [address] [place] [address] [phone] Potassium 4.5 mmol/L N 3.5-5.0 Chloride 93 mmol/L Low 101-111 Co2 Carbon Dioxide 32 mmol/L N 22-32 Anion Gap 8 mmol/L N 2-11 Glucose 112 mg/dL High 70-100 Blood Urea Nitrogen 28 mg/dL High 6-24 Creatinine 5.85 mg/dL High 0.51-0.95 BUN/Creatinine Ratio 4.8 Low 8-20 Calcium 9.8 mg/dL N 8.6-10.3 Egfr Non- 7.9 >60 Egfr 9.6 >60 1 Laboratory test 08/25/2017 [facility] Creatine 41 U/L N 10- 223 finding 101 Kinase(CK) [place], [place] [id number] [phone] T3 Free 3.10 pg/mL N 2.5-3.9 Thyroperoxidase AB 0.66 IU/mL N <9 Vitamin D 1,25 08/25/2017 [facility] Vitamin D Total 49.1 ng/mL N 20-50 And Vitamin D,[address] 25(Oh) [place], [place] [id number] [phone] Vitamin D, 1,25 Dihydroxy 28 pg/mL N 18-78 2 Hla B27 08/25/2017 [facility] Hla B27 Negative N [address] [place] [address] [phone] Hla B27 Interp See Comment N 4 Vitamin B12 And 08/25/2017 [facility] Vitamin B12 352 pg/mL N 180-914 5 Folate Serum [address] [place] [address] [phone] Folic Acid (Folate) > 20.00 ng/mL N >3.99 Laboratory 08/25/2017 [facility] Aso Negative N <200 6 test finding 101 [facility] (Antistreptolysin O) IU/mL Iu/[place] [address] Titer [phone] Angiotensin Converting Enzyme <5 U/L Abnormal 8 - 53 7 Babesiosis Evaluation <1:64 titer N <1:64 8 Proteinase 3 0.5 U Abnormal 9 Laboratory test 08/25/2017 [facility] Rheumatoid Factor <15 IU/ mL N <[address] [place], [place] [id number] [phone] Ssa/SSB Abs Igg 08/25/2017 [facility] SS-A/Ro Antibody <0.2 U N [address] [place], [place] [id number] [phone] SS-B/La Antibody <0.2 U N 12 Protein 08/25/2017 [facility] Total 7.0 g/dL N 6.3 - Electrophoresis [address] Protein(Pep) 7.9 [place] [address] [phone] Albumin 3.7 g/dL N 3.4-4.7 Alpha-1 Globulin 0.2 g/dL N 0.1-0.3 Alpha-2 Globulin 0.9 g/dL N 0.6-1.0 Beta Globulin 1.1 g/dL N 0.7-1.2 Gamma Globulin 1.1 g/dL N 0.6-1.6 Albumin/Globulin Ratio 1.15 N Impression See Comment N 13 Laboratory test 08/04/2017 [facility] Vitamin D Total 40.6 ng/ mL N 20-[address] 25(Oh) [place] [address] [phone] Laboratory test 08/04/2017 [facility] Phosphorus 4.4 mg/dL N 2.5-5.0 finding 101 [place] [address] [phone] Magnesium 1.7 mg/dL Low 1.9-2.7 Comp Metabolic Panel 08/04/2017 [facility] Sodium 137 mmol/L N 133-145 [address] [place] [address] [phone] Chloride 106 mmol/L N 101-111 Co2 Carbon Dioxide 26 mmol/L N 22-32 Glucose 96 mg/dL N 70-100 Blood Urea Nitrogen 37 mg/dL High 6-24 Creatinine 4.06 mg/dL High 0.51-0.95 One Over Creatinine 0.24 mg/dL Low 0.51-0.95 BUN/Creatinine Ratio 9.1 N 8-20 Calcium 9.3 mg/dL N 8.6-10.3 Total Protein 6.7 g/dL N 6.4-8.9 Albumin 4.1 g/dL N 3.2-5.2 Globulin 2.6 g/dL N 2-4 Albumin/Globulin Ratio 1.6 N 1-3 Total Bilirubin 0.60 mg/dL N 0.2-1.0 Alkaline Phosphatase 45 U/L N 34-104 Alt 8 U/L N 7-52 Ast 15 U/L N 13-39 Egfr Non- 12.1 N >60 Egfr 15.6 N >60 14 Potassium 5.3 mmol/L High 3.5-5.0 Anion Gap 5 mmol/L N 2-11 Cardiolipin 07/11/2017 [facility] Phospholipid Ab < 9.4 MPL N 15 Igg/Igm [address] IgM, [place] [address] [phone] Phospholipid Ab IgG < 9.4 GPL N 16 Lupus 07/11/2017 [facility] Prothrombin 10.1 sec Abnormal 17 Anticoagulant AB [address] Time(Lac) [place] [address] [phone] Lac Inr 0.9 N Lac Aptt 32 sec N 26 - 36 Lac DRVVT Screen Ratio 1.0 ratio N 0.0 - 1.1 Lupus Anticoagulant Interpreta See Comment N 18 Factor 5 Leiden 07/11/2017 [facility] Factor V Leiden Negative N Negative Mutation [address] [place] [address] [phone] Factor V Leiden Interpretation See Comment N 19 Factor V Leiden Reviewed By See Comment N 20 Factor II 07/11/2017 [facility] Prothrombin Negative N Negative (Prothrombin) [address] [place] [address] [phone] Prothrombin [id number] Interp See Comment N 21 Prothrombin Mutation Review By See Comment N 22 Anca AB Ser If 07/11/2017 [facility] C-Anca Negative N Negative [address] [place] [address] [phone] P-Anca Negative N Negative 23 Laboratory test 07/11/2017 [facility] Protein S 147 % N 50 - [address] [place] [address] [phone] Protein C Activity 114 % N 70 - 150 25 Anti Thrombin III Activity 94 % N 80 - 130 26 Anca Panel For 07/11/2017 [facility] Myeloperoxidase AB < 0.2 U N [address] [place] [address] [phone] Proteinase 3 AB 1.0 U High 28 Connective Tissue 06/23/2017 [facility] Anti-Nuclear 0.3 U N [address] [place] [address] [phone] Cyclic Citrullinated Peptide <15.6 U N 30 Interpretation See Comment N 31 Laboratory test 06/23/2017 [facility] Lyme Disease Negative N Negative [address] [place] [address] [phone] Liver Function 06/13/2017 [facility] Direct 0.10 mg/dL N 0.03- 0.[address] [place] [address] [phone] Indirect Bilirubin 0.5 mg/dL N 0.3-1.0 Laboratory test 06/13/2017 [facility] Uric Acid 8.7 mg/dL High 2.3-6.[address] [place] [address] [phone] Phosphorus 4.1 mg/dL N 2.5-5.0 Magnesium 1.3 mg/dL Low 1.9-2.7 Iron & Iron Binding 06/13/2017 [facility] Iron 66 g/dL N 50- [address] [place] [address] [phone] Unsaturated Iron Binding 255 g/dL N Total Iron Binding Capacity 321 g/dL N 250-450 % Iron Saturation 21 % N 15-55 Laboratory test 06/13/2017 [facility] Ferritin 38.8 ng/mL N 11 -307 finding 101 [place] [address] [phone] Urinalysis Profile 06/13/2017 [facility] Urine Color Straw N [address] [place] [address] [phone] Urine Appearance Clear N Urine Specific [place] 1.006 Low 1.010-1.030 Urine pH 5.0 N 5-9 Urine Urobilinogen Negative N Negative Urine Ketones Negative N Negative Urine Protein 1+(30 mg/dL) Abnormal Negative Urine Leukocytes Trace Abnormal Negative Urine Blood Negative N Negative Urine Nitrite Negative N Negative Urine Bilirubin Negative N Negative Urine Glucose Negative N Negative Urine White Blood Cell Trace(0-5/hpf) N Absent Urine Red Blood Cell Trace(0-2/hpf) N Absent Urine Bacteria Absent N Absent Urine Squamous Epithelial Cell Present Abnormal Absent Laboratory test 06/13/2017 [facility] Erythrocyte Sed 8 mm/Hr N 0-[address] [place] [address] [phone] Total Protein 24HR 06/13/2017 [facility] Urine Collection [address] [place] [address] [phone] Urine Total Volume 2500 mL N Urine Random Total Protein 39 mg/dL N Urine Total Protein/24HR 975 mg/24Hr High 0-165 Laboratory test 06/13/2017 [facility] Creatine 34 U/L N 10- [address] Kinase(CK) [place] [address] [phone] C Reactive Protein 3.39 mg/L N < 5.00 33 Urine Culture And 06/13/2017 [facility] Urine Culture SEE RESULT [address] [place] [address] [phone] Lipid Profile 06/13/2017 [facility] Triglycerides 187 mg/dL N 35 (Trig/Chol/HDL) [address] [place] [address] [phone] Cholesterol 217 mg/dL N 36 HDL Cholesterol 33.7 mg/dL N 37 LDL Cholesterol 146 mg/dL N 38 Comp Metabolic Panel 06/13/2017 [facility] Sodium 138 mmol/L N 133-[address] [place] [address] [phone] Potassium 4.9 mmol/L N 3.5-5.0 Chloride 108 mmol/L N 101-111 Co2 Carbon Dioxide 25 mmol/L N 22-32 Anion Gap 5 mmol/L N 2-11 Glucose 83 mg/dL N 70-100 Blood Urea Nitrogen 27 mg/dL High 6-24 Creatinine 2.78 mg/dL High 0.51-0.95 39 BUN/Creatinine Ratio 9.7 N 8-20 Calcium 9.1 mg/dL N 8.6-10.3 Total Protein 6.2 g/dL Low 6.4-8.9 Albumin 4.0 g/dL N 3.2-5.2 Globulin 2.2 g/dL N 2-4 Albumin/Globulin Ratio 1.8 N 1-3 Total Bilirubin 0.60 mg/dL N 0.2-1.0 Alkaline Phosphatase 44 U/L N 34-104 Alt 9 U/L N 7-52 Ast 14 U/L N 13-39 Egfr Non- 18.8 N >60 Egfr 24.1 N >60 40 One Over Creatinine 0.30 mg/dL Low 0.51-0.95 Pthi 06/13/2017 [facility] Calcium (PTH Intact) 9.1 mg/dL N 8.6-10.[address] [place] [address] [phone] PTH Intact 7.8 pmol/L N 1.3-9.3 Creatinine 06/13/2017 [facility] Creatinine 2.77 mg/dL High 0.51-0.[address] [place] [address] [phone] Urine Collection Time 24 N Urine Total Volume 2500 mL N Urine Random Creatinine 57.94 mg/dL N Creatinine Clearance 36 mL/min Low 88-128 Laboratory test 06/13/2017 [facility] Myoglobin 49.7 ng/mL N 14.3-65.[address] [place] [address] [phone] CBC Auto Diff 06/13/2017 [facility] White Blood 7.7 N 3.5- 10.[address] Count 10^3/[place] [address] [phone] Red Blood Count 4.81 10^6/uL N 4.0-5.4 Hemoglobin 15.1 g/dL N 12.0-16.0 Hematocrit 45 % N 35-47 Mean Corpuscular Volume 94 fL N 80-97 Mean Corpuscular Hemoglobin 31 pg N 27-31 Mean Corpuscular HGB Conc 33 g/dL N 31-36 Red Cell Distribution Width 13 % N 10.5-15 Platelet Count 112 10^3/uL Low 150-450 Mean Platelet Volume 10 um3 N 7.4-10.4 Abs Neutrophils 5.4 10^3/uL N 1.5-7.7 Abs Lymphocytes 1.3 10^3/uL N 1.0-4.8 Abs Monocytes 0.7 10^3/uL N 0-0.8 Abs Eosinophils 0.2 10^3/uL N 0-0.6 Abs Basophils 0 10^3/uL N 0-0.2 Abs Nucleated RBC 0 10^3/uL N Granulocyte % 69.9 % N 38-83 Lymphocyte % 17.2 % Low 25-47 Monocyte % 9.3 % High 1-9 Eosinophil % 3.0 % N 0-6 Basophil % 0.6 % N 0-2 Nucleated Red Blood Cells % 0.1 N Laboratory test 01/31/2016 [facility] TSH (Thyroid 4.63 ?IU/mL N 0.34-5.[address] Stim Horm) [place] [address] [phone] Free T4 (Free Thyroxine) 0.81 ng/dL N 0.61-1.12 1 Because ethnic data is not always readily [...] 15-29 5 Kidney failure <15 (or dialysis) 2 ADDITIONAL INFORMATION This test was developed and its performance characteristics determined by [facility] in a manner consistent with CLIA requirements. This test has not been cleared or approved by the U.S. Food and Drug Administration. Test Performed by: [facility] [address] [place] [address] 3 REFERENCE VALUE Not Applicable 4 RESULT: HLA-B27 antigen was not detected. ADDITIONAL INFORMATION Method: Flow Cytometry Performing Laboratory CLIA# [id number] Test Performed by: [facility] - [address] [address] 5 Normal Range 180 to 914 Indeterminate Range 145 to 180 Deficient Range <145 6 Normal values may vary with age, season and geographic area. Titers above upper limits may be indicative of infection, however only a two dilution rise in titer is required to be considered significant. ASO titer will usually rise above upper limits within one week of exposure, increase to peak levels at 3-5 weeks and return to baseline level at 6-12 twelve months. 7 Test Performed by: [address] [address] 8 ADDITIONAL INFORMATION This test was developed using an analyte specific reagent. Its performance characteristics were determined by [facility] in a manner consistent with CLIA requirements. This test has not been cleared or approved by the U.S. Food and Drug Administration. Test Performed by: [facility] - [facility] [address] [place] [address] 9 Interpretation: Equivocal (0.4-0.9) REFERENCE VALUE <0.4 (Negative) Test Performed by: [address] [address] 10 Test Performed by: [facility] - [address] [address] 11 REFERENCE VALUE <1.0 (Negative) 12 REFERENCE VALUE <1.0 (Negative) Test Performed by: [address] [address] 13 RESULT: No apparent monoclonal protein on serum electrophoresis. Test Performed by: [address] [address] 14 Because ethnic data is not always readily [...] 15-29 5 Kidney failure <15 (or dialysis) 15 REFERENCE VALUE <15.0 (Negative) 16 REFERENCE VALUE <15.0 (Negative) Test Performed by: [address] [address] 17 REFERENCE VALUE 10.3 - 12.8 18 No evidence of a lupus-like anticoagulant based on results of Prothrombin Time (PT), Activated Partial Thromboplastin Time (APTT), and Dilute Russells Viper Venom Time (DRVVT). Interpretation not reviewed by physician. Test Performed by: [address] [address] 19 This individual DOES NOT have the factor [...] of sequence specific alleles ([employer], [employer], [place], [place]). This test has been modified from the hand salter's instructions. Its performance characteristics were determined by [facility] in a manner consistent with CLIA requirements. This test has not been cleared or approved by the U.S. Food and Drug Administration. 20 RESULT: DULCE Clark Test Performed by: [place] [address] 21 This individual DOES NOT have the Prothrombin T32212C mutation. Although the Prothrombin [id number] mutation is absent, the individual may have other genetic and environmental risk factors for thrombosis. If clinically indicated, suggest Coagulation Consultation [address] (Thrombophilia Profile) to complete the evaluation for an inherited or acquired thrombosing disorder (i.e., thrombophilia). Consider genetic consultation and counseling of potentially affected family members regarding laboratory testing. ADDITIONAL INFORMATION This test is a direct mutation analysis using PCR amplification, signal generation and release by cleavage of sequence specific alleles ([employer], [employer], [place], [place]). This test has been modified from the hand salter's instructions. Its performance characteristics were determined by [facility] in a manner consistent with CLIA requirements. This test has not been cleared or approved by the U.S. Food and Drug Administration. 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 This test has not been cleared or approved by the U.S. Food and Drug Administration. Test Performed by: [place] [address] 24 Anticoagulants (for example oral direct thrombin inhibitors [...] This test has been modified from the hand salter's instructions. Its performance characteristics were determined by [facility] in a manner consistent with CLIA requirements. This test has not been cleared or approved by the U.S. Food and Drug Administration. Test Performed by: [facility] - [address] [address] 25 ADDITIONAL INFORMATION This test has been modified from the hand salter's instructions. Its performance characteristics were determined by [facility] in a manner consistent with CLIA requirements. This test has not been cleared or approved by the U.S. Food and Drug Administration. Test Performed by: [address] [address] 26 Direct factor Xa inhibitor therapy (rivaroxaban (Xarelto), apixaban (Eliquis), edoxaban (Savaysa)) may interfere with the functional Xa based AT assay and cause an overestimation of AT activity thus potentially masking diagnosis of AT deficiency. Suggest clinical correlation and consider repeat AT testing remote from direct factor Xa inhibitor therapy, if clinically indicated. ADDITIONAL INFORMATION This test has been modified from the hand salter's instructions. Its performance characteristics were determined by [facility] in a manner consistent with CLIA requirements. This test has not been cleared or approved by the U.S. Food and Drug Administration. Test Performed by: [facility] - [facility] [address] [place] [address] 27 REFERENCE VALUE <0.4 (Negative) 28 Interpretation: Positive (>=1.0) REFERENCE VALUE <0.4 (Negative) Test Performed by: [facility] - [facility] [address] [place] [address] 29 REFERENCE VALUE <=1.0 (Negative) 30 REFERENCE VALUE <20.0 (Negative) 31 Tests for antibodies to dsDNA and RAMONA antigens are not performed automatically unless the SIN result is > or= 3.0 U. Studies performed at [facility] indicate that positive SIN results <3.0 U are rarely accompanied by positive second order tests. Test Performed by: [facility] - [address] [address] 32 Serologic response to B. burgdorferi infection is not detected, but cannot rule out early infection during which low or undetectable antibody levels to B. burgdorferi may be present. If clinically indicated, a new serum specimen should be submitted in 7-14 days. Test Performed by: [facility] - [facility] [address] [place] [address] 33 Acute inflammation: >10.00 34 SEE RESULT BELOW Name: BUFFY BRANTLEY : [address]: Shakeel Gonzalez MD Acct: [id number] Unit: [id number] AGE: 41 Location: LAB Re06/13/17 SEX: F Status: REG REF SPEC: [id number] ES: 06/13/17-[address]: Shakeel Gonzalez MD REQ: [id number] RECD: 06/13/17 STATUS: PATRICK SLAUGHTER DR: Regi Goodrich MD _ SOURCE: URINE SPDESC: ORDERED: Urine Culture QUERIES: Urine Source: Clean Catch Procedure Result Reported Site Urine Culture Final 06/14/17- 921 ML No growth of clinically significant organisms * ML - MAIN LAB ([facility]) . END OF REPORT * ML=Testing performed at Main Lab DEPARTMENT OF PATHOLOGY, [address] [place] [address] Graham Ambrocio M.D. Director [facility] # [id number] 35 Desirable <150 Borderline high 150-199 High 200-499 Very High >500 36 Desirable <200 Borderline high 200-239 High >239 37 Low <40 Desirable: 40-60 High: >60 38 Desirable: <100 mg/dL Near Optimal: 100-129 mg/dL Borderline High: 130-159 mg/dL High: 160-189 mg/dL Very High: >189 mg/dL 39 --- 06/13/17 1342 --- Creatinine previously reported as: 2.78 H mg/dL --- 06/13/17 1342 --- Creatinine previously reported as: mg/dL --- 06/13/17 1342 --- Creatinine previously reported as: 2.78 H mg/dL 40 Because ethnic data is not always readily [...] Kidney failure <15 (or dialysis) Procedures Date Code Description Status 09/16/2018 77435 Repair Hernia Umbilical > 5 Yrs, Reducible Completed 07/13/2018 48432 Delay Creation Exit Site Intraperitoneal Cannula Or Completed Catheter 05/13/2018 07307 Laparoscopy w/ omentopexy Completed 05/13/2018 58827 Lap W/Insert Intraperitoneal Cannula Or Catheter Permanent Completed 08/20/2017 77124 Moderate Sedation Services; Same Phys Intl 15 Mins; PT >=5 Completed Years 08/20/2017 18575 Color Flow Doppler/Interp & Reprt Completed 08/20/2017 12416 Pulse Wave/Continuous-Interp.RPT Completed 08/20/2017 40892 Echocardiography, Transesophageal, Real Time W/Image 2D Completed W/W/O M-M 08/05/2017 00568 Holter Monitor Review (24 hr)dr review & interp only Completed 08/04/2017 82125 ECG Monitor/Recording W/Visual Superimposition Scanning Completed 07/03/2017 45258 Nerve Conduction 13+ Studies Completed 07/03/2017 09936 Needle Electromyography Each Extremity W/Related Completed Paraspinal Areas Encounters Type Date Location Provider Dx Diagnosis Office Visit 09/10/2018 Surgical Marcos Lopez, K42.9 Umbilical hernia 1:15p [facility], FACS without obstruction or gangrene N18.6 End stage renal disease Office Visit 04/20/2018 8:30a [facility] N18.6 End stage Danish Lopez MD, renal disease FACS Office Visit 11/28/2017 2:00p [facility] Carly Goodrich, R51 Headache Z86.73 Prsnl hx of TIA (TIA), and cereb infrc w/o resid deficits R94.02 Abnormal brain scan M79.1 Myalgia Office Visit 09/29/2017 3:00p [facility] Henry Nguyễn.1 [facility] M.D. M54.5 Low back pain M54.2 Cervicalgia R76.0 Raised antibody titer Office Visit 08/25/2017 1:00p [facility] Henry Nguyễn.1 [facility] M.D. 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 Office Visit 07/11/2017 8:30a [facility] Goodrich I63.511 Cereb infrc MD d/t unsp occls or stenos of right mid cereb art R51 Headache M79.1 Myalgia Z86.73 Prsnl hx of TIA (TIA), and cereb infrc w/o resid deficits Office Visit 06/13/2017 3:00p [facility] Goodrich MD M79.1 Myalgia R51 Headache R94.02 Abnormal brain scan R53.1 Weakness Office Visit 01/31/2016 10:30a [facility] Carly Goodrich, G43.109 Migraine with [facility] aura, not intractable, w/o status migrainosus L65.9 Nonscarring hair loss, unspecified Office Visit 10/31/2015 11:00a [facility] Carly Goodrich, G43.109 Migraine with [facility] aura, not intractable, w/o status migrainosus Plan of Treatment Future Appointment(s):11/09/2018 10:00 am - Marcos Lopez MD, FACS at [facility]10/26/2018 - Julia Mcelroy, NPK42.9 Umbilical hernia without obstruction or gangreneFollow up:[address] LOPEZ MIRIAM UMBILICAL YILZMXVVS15.34 Postprocedural seroma of skin and subcutaneous tissue ksfbcvV43.01 Encounter for change or removal of surgical wound dressing
--- OUTSIDE RECORDS SUMMARY | 2018-11-16 22:48 | XMS REPORT | Continuity of Care Document ---
:1975 External Reference #:[id number] Author Name SebastienJacqui hope Care Team Providers Name Role Phone Regi Garnica NP Primary Care Physician Unavailable Payers Type Date Identification Numbers Payment Provider Subscriber Expires: 2018 Policy Number: [id number] Medicare Buffy Brantley PayID: [id number] [address] [place] [address] Effective: 2018 Policy Number: [id number] Medicaid Buffy Brantley Group Name: 1 1 [address] PayID: [id number] [place] [address] Expires: 2018 Policy Number: [id number] Matt Buffy Brantley Group Number: [id number] [address] PayID: [id number] [place] [address] Advance Directives Description No Information Available Problems [...] Use Never Used Drugs Smoking Status Reviewed: 11/09/18 Patient is a former quit in 2013 [...] / Active Solution 0.02% as needed Unknown [place] 0000 Albuterol / Active Nebulizer (2.5mg/3ML as [...] Tablets 800-160mg 14tab 1 tablet N18.6 Marcos Diaz 2018 s by mouth Bollo, twice a [...] HCL 0000 - every 10/31/ night at 2015 bedtime Hydroxyzine HCL / Hx Tablets 10mg every 8h Unknown 0000 as needed Meclizine HCL / Hx Chewtabs 25mg 1 tab Unknown 0000 every 8 hours as needed for dizziness Aspirin Ec / Hx Tablets DR 81mg 1 by mouth Unknown 0000 daily Immunizations Description No Information Available Vital Signs Date Vital Result Comment 11/09/2018 10:00am Heart Rate 76 /min BP Systolic 156 mmHg BP Diastolic 92 mmHg Respiratory Rate 16 /min Body Temperature 97.1 F 10/26/2018 10:05am Heart Rate 76 /min Respiratory [...] Result H/L Range Note Basic Metabolic 09/16/2018 [facility] Sodium 133 mmol/L Low 135-[address] [place] [address] [phone] Potassium 4.5 mmol/L N 3.5-5.0 Chloride 93 mmol/L Low 101-111 Co2 Carbon Dioxide 32 mmol/L N 22-32 Anion Gap 8 mmol/L N 2-11 Glucose 112 mg/dL High 70-100 Blood Urea Nitrogen 28 mg/dL High 6-24 Creatinine 5.85 mg/dL High 0.51-0.95 BUN/Creatinine Ratio 4.8 Low 8-20 Calcium 9.8 mg/dL N 8.6-10.3 Egfr Non- 7.9 >60 Egfr 9.6 >60 1 Laboratory test 08/25/2017 [facility] Creatine 41 U/L N 10- 223 finding 101 [facility] Kinase(CK) [place] [address] [phone] T3 Free 3.10 pg/mL N 2.5-3.9 Thyroperoxidase AB 0.66 IU/mL N <9 Vitamin D 1,25 08/25/2017 [facility] Vitamin D Total 49.1 ng/mL N 20-50 And Vitamin D,[address](Oh) [place] [address] [phone] Vitamin D, 1,25 Dihydroxy 28 pg/mL N 18-78 2 Hla B27 08/25/2017 [facility] Hla B27 Negative N 3 [address] [place] [address] [phone] Hla B27 Interp See Comment N 4 Vitamin B12 And 08/25/2017 [facility] Vitamin B12 352 pg/mL N 180-914 5 Folate Serum [address] [place] [address] [phone] Folic Acid (Folate) > 20.00 ng/mL N >3.99 Laboratory 08/25/2017 [facility] Aso Negative N <200 6 test finding 101 [facility] (Antistreptolysin O) IU/mL Iu/[place] [address] Titer [phone] Angiotensin Converting Enzyme <5 U/L Abnormal 8 - 53 7 Babesiosis Evaluation <1:64 titer N <1:64 8 Proteinase 3 0.5 U Abnormal 9 Laboratory test 08/25/2017 [facility] Rheumatoid Factor <15 IU/ mL N <15 10 finding [address] [place] [address] [phone] Ssa/SSB Abs Igg 08/25/2017 [facility] SS-A/Ro Antibody <0.2 U N 11 [address] [place] [address] [phone] SS-B/La Antibody <0.2 U N 12 Protein 08/25/2017 [facility] Total 7.0 g/dL N 6.3 - Electrophoresis [facility] Protein(Pep) 7.9 [place] [address] [phone] Albumin 3.7 g/dL N 3.4-4.7 Alpha-1 Globulin 0.2 g/dL N 0.1-0.3 Alpha-2 Globulin 0.9 g/dL N 0.6-1.0 Beta Globulin 1.1 g/dL N 0.7-1.2 Gamma Globulin 1.1 g/dL N 0.6-1.6 Albumin/Globulin Ratio 1.15 N Impression See Comment N 13 Laboratory test 08/04/2017 [facility] Vitamin D Total 40.6 ng/ mL N 20-50 finding [address] [facility] 25(Oh) [place] [address] [phone] Laboratory test 08/04/2017 [facility] Phosphorus 4.4 mg/dL N 2.5-5.0 finding [address] [place] [address] [phone] Magnesium 1.7 mg/dL Low 1.9-2.7 Comp Metabolic Panel 08/04/2017 [facility] Sodium 137 mmol/L N 133-145 [address] [place] [address] [phone] Chloride 106 mmol/L N 101-111 Co2 Carbon [...] Gap 5 mmol/L N 2-11 Cardiolipin 07/11/2017 [facility] Phospholipid Ab < 9.4 MPL N 15 Igg/Igm [address] IgM, [place] [address] [phone] Phospholipid Ab IgG < 9.4 GPL N 16 Lupus 07/11/2017 [facility] Prothrombin 10.1 sec Abnormal 17 Anticoagulant AB [address] Time(Lac) [place], [place] [address] [phone] Lac Inr 0.9 N Lac Aptt 32 sec N 26 - 36 Lac DRVVT Screen Ratio 1.0 ratio N 0.0 - 1.1 Lupus Anticoagulant Interpreta See Comment N 18 Factor 5 Leiden 07/11/2017 [facility] Factor V Leiden Negative N Negative Mutation [address] [place] [address] [phone] Factor V Leiden Interpretation See Comment N 19 Factor V Leiden Reviewed By See Comment N 20 Factor II 07/11/2017 [facility] Prothrombin Negative N Negative (Prothrombin) [address] [address] [place] [address] [phone] Prothrombin [id number] Interp See Comment N 21 Prothrombin Mutation Review By See Comment N 22 Anca AB Ser If 07/11/2017 [facility] C-Anca Negative N Negative [address] [place], [place] [address] [phone] P-Anca Negative N Negative 23 Laboratory test 07/11/2017 [facility] Protein S 147 % N 50 - 160 [address] Activity [place], [place] [address] [phone] Protein C Activity 114 % N 70 - 150 25 Anti Thrombin III Activity 94 % N 80 - 130 26 Anca Panel For 07/11/2017 [facility] Myeloperoxidase AB < 0.2 U N [address] [place] [address] [phone] Proteinase 3 AB 1.0 U High 28 Connective Tissue 06/23/2017 [facility] Anti-Nuclear 0.3 U N [address] [place] [address] [phone] Cyclic Citrullinated Peptide <15.6 U N 30 Interpretation See Comment N 31 Laboratory test 06/23/2017 [facility] Lyme Disease Negative N Negative [address] [place] [address] [phone] Liver Function 06/13/2017 [facility] Direct 0.10 mg/dL N 0.03- 0.[address] [place] [address] [phone] Indirect Bilirubin 0.5 mg/dL N 0.3-1.0 Laboratory test 06/13/2017 [facility] Uric Acid 8.7 mg/dL High 2.3-6.[address] [place] [address] [phone] Phosphorus 4.1 mg/dL N 2.5-5.0 Magnesium 1.3 mg/dL Low 1.9-2.7 Iron & Iron Binding 06/13/2017 [facility] Iron 66 g/dL N 50- [address] [place] [address] [phone] Unsaturated Iron Binding 255 g/dL N Total Iron Binding Capacity 321 g/dL N 250-450 % Iron Saturation 21 % N 15-55 Laboratory test 06/13/2017 [facility] Ferritin 38.8 ng/mL N 11 -[address] [place] [address] [phone] Urinalysis Profile 06/13/2017 [facility] Urine Color Straw [place] [address] [place] [address] [phone] Urine Appearance Clear N Urine Specific [place] 1.006 Low 1.010-1.030 Urine pH 5.0 N [...] Cell Present Abnormal Absent Laboratory test 06/13/2017 [facility] Erythrocyte Sed 8 mm/Hr N 0-[address] [place] [address] [phone] Total Protein 24HR 06/13/2017 [facility] Urine Collection 24 N Urine [address] [place] [address] [phone] Urine Total Volume 2500 mL N Urine Random Total Protein 39 mg/dL N Urine Total Protein/24HR 975 mg/24Hr High 0-165 Laboratory test 06/13/2017 [facility] Creatine 34 U/L N 10- [address] Kinase([place]) [place] [address] [phone] C Reactive Protein 3.39 mg/L N < 5.00 33 Urine Culture And 06/13/2017 [facility] Urine Culture SEE RESULT [address] [place] [address] [phone] Lipid Profile 06/13/2017 [facility] Triglycerides 187 mg/dL N 35 (Trig/Chol/HDL) [address] [place] [address] [phone] Cholesterol 217 mg/dL N 36 HDL Cholesterol 33.7 mg/dL N 37 LDL Cholesterol 146 mg/dL N 38 Comp Metabolic Panel 06/13/2017 [facility] Sodium 138 mmol/L N 133-[address] [place] [address] [phone] Potassium 4.9 mmol/L N 3.5-5.0 Chloride 108 [...] Creatinine 0.30 mg/dL Low 0.51-0.95 Pthi 06/13/2017 [facility] Calcium (PTH Intact) 9.1 mg/dL N 8.6-10.[address] [place] [address] [phone] PTH Intact 7.8 pmol/L N 1.3-9.3 Creatinine 06/13/2017 [facility] Creatinine 2.77 mg/dL High 0.51-0.[address] [place] [address] [phone] Urine Collection Time 24 N Urine Total Volume 2500 mL N Urine Random Creatinine 57.94 mg/dL N Creatinine Clearance 36 mL/min Low 88-128 Laboratory test 06/13/2017 [facility] Myoglobin 49.7 ng/mL N 14.3-65.[address] [place] [address] [phone] CBC Auto Diff 06/13/2017 [facility] White Blood 7.7 N 3.5- 10.[address] Count 10^3/[place] [address] [phone] Red Blood Count 4.81 10^6/uL N 4.0-5.4 [...] Cells % 0.1 N Laboratory test 01/31/2016 [facility] TSH (Thyroid 4.63 ?IU/mL N 0.34-5.[address] Stim [place]) [place] [address] [phone] Free T4 (Free Thyroxine) 0.81 ng/dL N [...] developed and its performance characteristics determined by [facility] in a manner consistent with CLIA requirements. This test has not been cleared or approved by the U.S. Food and Drug Administration. Test Performed by: [facility] [address] [place] [address] 3 REFERENCE VALUE Not Applicable 4 RESULT: HLA-B27 antigen was not detected. ADDITIONAL INFORMATION Method: Flow Cytometry Performing Laboratory CLIA# [id number] Test Performed by: [facility] - [address] [address] 5 Normal Range 180 to 914 Indeterminate [...] 6-12 twelve months. 7 Test Performed by: [facility] - [address] [address] 8 ADDITIONAL INFORMATION This test was developed using an analyte specific reagent. Its performance characteristics were determined by [facility] in a manner consistent with CLIA requirements. This test has not been cleared or approved by the U.S. Food and Drug Administration. Test Performed by: [facility] - [facility] [address] [place] [address] 9 Interpretation: Equivocal (0.4-0.9) REFERENCE VALUE <0.4 (Negative) Test Performed by: [facility] - [address] [address] 10 Test Performed by: [facility] - [address] [address] 11 REFERENCE VALUE <1.0 (Negative) 12 REFERENCE VALUE <1.0 (Negative) Test Performed by: [address] [address] 13 RESULT: No apparent monoclonal protein on serum electrophoresis. Test Performed by: [address] [address] 14 Because ethnic data is not always [...] REFERENCE VALUE <15.0 (Negative) Test Performed by: [facility] - [address] [address] 17 REFERENCE VALUE 10.3 - 12.8 18 No evidence of a lupus-like anticoagulant based on results of Prothrombin Time (PT), Activated Partial Thromboplastin Time (APTT), and Dilute Russells Viper Venom Time (DRVVT). Interpretation not reviewed by physician. Test Performed by: [address] [address] 19 This individual DOES NOT have the [...] of sequence specific alleles ([employer], [place], [place], [place]). This test has been modified from the facing end trimmer's instructions. Its performance characteristics were determined by [facility] in a manner consistent with CLIA requirements. This test has not been cleared or approved by the U.S. Food and Drug Administration. 20 RESULT: DULCE Clark Test Performed by: [facility] - [address] [address] 21 This individual DOES NOT have the Prothrombin [id number] mutation. Although the Prothrombin [id number] mutation is absent, the individual may have other genetic and environmental risk factors for thrombosis. If clinically indicated, suggest Coagulation Consultation 97519 (Thrombophilia Profile) to complete the evaluation for an inherited or acquired thrombosing disorder (i.e., thrombophilia). Consider genetic consultation and counseling of potentially affected family members regarding laboratory testing. ADDITIONAL INFORMATION This test is a direct mutation analysis using PCR amplification, signal generation and release by cleavage of sequence specific alleles ([employer], [place], [place], [place]). This test has been modified from the facing end trimmer's instructions. Its performance characteristics were determined by [facility] in a manner consistent with CLIA requirements. This test has not been cleared or approved by the U.S. Food and Drug Administration. 22 RESULT: DULCE Clark Test Performed by: [address] [address] 23 Borderline positive for anti-PR3 antibody by [...] developed and its performance characteristics determined by [facility] in a manner consistent with CLIA requirements. This test has not been cleared or approved by the U.S. Food and Drug Administration. Test Performed by: [address] [address] 24 Anticoagulants (for example oral direct thrombin [...] This test has been modified from the facing end trimmer's instructions. Its performance characteristics were determined by [facility] in a manner consistent with CLIA requirements. This test has not been cleared or approved by the U.S. Food and Drug Administration. Test Performed by: [facility] - [address] [address] 25 ADDITIONAL INFORMATION This test has been modified from the facing end trimmer's instructions. Its performance characteristics were determined by [facility] in a manner consistent with CLIA requirements. This test has not been cleared or approved by the U.S. Food and Drug Administration. Test Performed by: [address] [address] Direct factor Xa inhibitor therapy (rivaroxaban (Xarelto), apixaban (Eliquis), edoxaban (Savaysa)) may interfere with the functional Xa based AT assay and cause an overestimation of AT activity thus potentially masking diagnosis of AT deficiency. Suggest clinical correlation and consider repeat AT testing remote from direct factor Xa inhibitor therapy, if clinically indicated. ADDITIONAL INFORMATION This test has been modified from the facing end trimmer's instructions. Its performance characteristics were determined by [facility] in a manner consistent with CLIA requirements. This test has not been cleared or approved by the U.S. Food and Drug Administration. Test Performed by: [facility] - [address] [address] 27 REFERENCE VALUE <0.4 (Negative) 28 Interpretation: Positive (>=1.0) REFERENCE VALUE <0.4 (Negative) Test Performed by: [facility] - [address] [address] 29 REFERENCE VALUE <=1.0 (Negative) 30 REFERENCE VALUE <20.0 (Negative) 31 Tests for antibodies to dsDNA and RAMONA antigens are not performed automatically unless the SIN result is > or= 3.0 U. Studies performed at [facility] indicate that positive SIN results <3.0 U are rarely accompanied by positive second order tests. Test Performed by: [facility] - [address] [address] 32 Serologic response to B. burgdorferi infection is not detected, but cannot rule out early infection during which low or undetectable antibody levels to B. burgdorferi may be present. If clinically indicated, a new serum specimen should be submitted in 7-14 days. Test Performed by: [facility] - [address] [address] 33 Acute inflammation: >10.00 34 SEE RESULT BELOW Name: BUFFY BRANTLEY : [address]: Shakeel Gonzalez MD Acct: [id number] Unit: [id number] AGE: 41 Location: LAB Re06/13/17 SEX: F Status: REG REF SPEC: [id number] ES: 06/13/17-[address] [facility] [address]: Shakeel Gonzalez MD REQ: [id number] RECD: 06/13/17-1048 STATUS: COMP OTHR DR: Regi Goodrich MD _ SOURCE: URINE SPDESC: ORDERED: Urine Culture QUERIES: Urine Source: Clean Catch Procedure Result Reported Site Urine Culture Final 06/14/17- 09 ML No growth of clinically significant organisms * ML - MAIN LAB ([facility]) . END OF REPORT * ML=Testing performed at Main Lab DEPARTMENT OF PATHOLOGY, [address] [place] [address] Graham Ambrocio M.D. Director [facility] # [id number] 35 Desirable <150 Borderline high 150-199 High [...] Creatinine previously reported as: mg/dL --- 06/13/17 134 --- Creatinine previously reported as: 2.78 H [...] dialysis) Procedures Date Code Description Status 09/16/2018 42594 Repair Hernia Umbilical > 5 Yrs, Reducible Completed 07/13/2018 81371 Delay Creation Exit Site Intraperitoneal Cannula Or Completed Catheter 05/13/2018 60485 Laparoscopy w/ omentopexy Completed 05/13/2018 99631 Lap W/Insert Intraperitoneal Cannula Or Catheter Permanent Completed 08/20/2017 63399 Moderate Sedation Services; Same Phys Intl 15 Mins; PT >=5 Completed Years 08/20/2017 16310 Color Flow Doppler/Interp & Reprt Completed 08/20/2017 53934 Pulse Wave/Continuous-Interp.RPT Completed 08/20/2017 38269 Echocardiography, Transesophageal, Real Time W/Image 2D Completed W/W/O M-M 08/05/2017 62296 Holter Monitor Review (24 hr)dr review & interp only Completed 08/04/2017 20872 ECG Monitor/Recording W/Visual Superimposition Scanning Completed 07/03/2017 44418 Nerve Conduction 13+ Studies Completed 07/03/2017 78662 Needle Electromyography Each Extremity W/Related Completed Paraspinal [...] 3:00p Rheumatology Services Henry Nguyễn.1 [facility] [employer] M.D. M54.5 Low back pain M54.2 Cervicalgia R76.0 Raised antibody titer Office Visit 08/25/2017 1:00p [facility] Henry Nguyễn.1 [facility] [employer] M.D. 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 Office Visit 07/11/2017 8:30a [facility] Goodrich, I63.511 Cereb infrc MD d/t unsp occls or stenos of right mid cereb art R51 Headache M79.1 Myalgia Z86.73 Prsnl hx of TIA (TIA), and cereb infrc w/o resid deficits Office Visit 06/13/2017 3:00p [facility] Goodrich MD M79.1 Myalgia R51 Headache R94.02 Abnormal brain scan R53.1 Weakness Office Visit 01/31/2016 10:30a [facility] Carly Goodrich, G43.109 Migraine with [facility] aura, not intractable, w/o status migrainosus L65.9 Nonscarring hair loss, unspecified Office Visit 10/31/2015 11:00a [facility] Carly Goodrich G43.109 Migraine with [facility] aura, not intractable, w/o status migrainosus Plan of Treatment 11/09/2018 - Marcos Lopez MD, FACSN18.6 End stage renal diseaseFollow up: None neededInstructions:contact nephrology to restart peritoneal awewhxhkC73.9 Umbilical hernia without obstruction or gangrene
[2018-11-16] MEDS ORDERED: Gentamicin ADULT (*) 150 MG in NS 0.9% 100 ML* 100 ML IVPB ONE (22:55)
[2018-11-16] MEDS ORDERED: Vancomycin(*) 1,000 MG in NS 0.9% 250 ML* 250 ML IVPB ONE (22:55)
--- NOTE | 2018-11-16 22:59 | ED ---
GI/ HPI - HPI Summary HPI Summary: This patient is a 42 year old F with a PMHx of stage 4 polycystic kidney disease presenting to [facility] with a chief complaint of infection of her PD port in the left abdomen since last night. The patient rates the pain 8/10 in severity. Patient reports pain, redness, and soreness all at her port site and her port giving brown colored drainage. Patient denies fever, abdominal pain, and changes in appetite. - History of Current Complaint Chief Complaint: EDGeneral Stated Complaint: POSS PORT INFECTION Hx Obtained From: Patient Hx Last Menstrual Period: 06/14/17 Onset/Duration: Started Days Ago Timing: Constant Pain Intensity: 8 Associated Signs and Symptoms: Positive: Other: - Pain, redness, and soreness all at her port site and her port giving brown colored drainage. Denies changes in appetite.. Negative: Fever, Abdominal Pain - Allergy/Home Medications Allergies/Adverse Reactions: Allergies Allergy/AdvReac Type Severity Reaction Status Date / Time No Known Allergies Allergy Verified 09/16/18 13:41 PMH/Surg Hx/FS Hx/Imm Hx Endocrine/Hematology History: Reports: Hx Anemia Denies: Hx Diabetes, Hx Thyroid Disease Cardiovascular History: Reports: Hx Hypertension - ON MEDICATION FOR Denies: Hx Pacemaker/ICD Respiratory History: Reports: Hx Asthma Denies: Hx Chronic Obstructive Pulmonary Disease (COPD) GI History: Reports: Hx Gastroesophageal Reflux Disease - ON MEDICATION FOR, Other GI Disorders - umbilical hernia Denies: Hx Ulcer History: Reports: Hx Chronic Renal Failure - stage 4, w/ polycystic kidney disease, Hx Renal Disease - PD CATH, Other Problems/Disorders - polycystic disease Sensory History: Denies: Hx Contacts or Glasses, Hx Hearing Aid Opthamlomology History: Denies: Hx Contacts or Glasses Neurological History: Reports: Hx Headaches, Hx Migraine - HX OF- MORE FREQUENT SINCE STARTING WITH DIALYSIS, Hx Transient Ischemic Attacks (TIA) Psychiatric History: Reports: Hx Anxiety - ON MEDICATION FOR, Hx Depression - ON MEDICATION FOR, Hx Panic Disorder - Cancer History Hx Chemotherapy: No - Surgical History Surgery Procedure, Year, and Place: RIGHT ARM FISTULA-03/2018-[facility] [place]. PD port placement 06/2018 Hx Anesthesia Reactions: No Infectious Disease History: No Infectious Disease History: Denies: Hx Clostridium Difficile, Hx Hepatitis, Hx Human Immunodeficiency Virus (HIV), Hx of Known/Suspected MRSA, Hx Shingles, Hx Tuberculosis, Hx Known/ Suspected VRE, Hx Known/Suspected VRSA, History Other Infectious Disease, Traveled Outside the [place] in Last 30 Days - Family History Known Family History: Positive: Hypertension - Social History Alcohol Use: None Substance Use Type: Reports: None Smoking Status (MU): Former Smoker Type: Cigarettes Amount Used/How Often: 1/2 ppd smoked for 20 years Have You Smoked in the Last Year: No Review of Systems Negative: Fever Negative: Abdominal Pain, Other - Changes in appetite Positive: other - Her port is giving brown colored drainage Positive: Other - pain, redness, and soreness all at her port site All Other Systems Reviewed And Are Negative: Yes Physical Exam - Summary Physical Exam Summary: Appearance: Well-appearing, Well-nourished, lying in bed comfortably Skin: Warm, dry, no obvious rash Eyes: sclera anicteric, no conjunctival pallor ENT: mucous membranes moist, pharynx appears normal Neck: Supple, nontender Respiratory: Clear to auscultation, no signs of respiratory distress Cardiovascular: Normal S1, S2. No murmurs. Normal distal pulses in tibial and radial bilaterally. Abdomen: PD catheter in left lower abdomen, cellulitis adjacent to it extending about 5 cm from the entry point. I did not see any drainage. Musculoskeletal: Normal, Strength/ROM Intact Neurological: A&Ox3, awake and alert, mentation is normal, speech is fluent and appropriate Psychiatric: affect is normal, does not appear anxious or depressed Triage Information Reviewed: Yes Vital Signs On Initial Exam: Initial Vitals Temp Pulse Resp BP Pulse Ox 96.7 F 105 20 128/96 94 11/16/18 21:50 11/16/18 21:50 11/16/18 21:50 11/16/18 21:50 11/16/18 21:50 Vital Signs Reviewed: Yes Diagnostics - Vital Signs Vital Signs Temp Pulse Resp BP Pulse Ox 11/16/18 21:50 96.7 F 105 20 128/96 94 - Laboratory Lab Results: Lab Results 11/16/18 11/16/18 11/16/18 Range/Units 22:09 22:09 22:09 WBC 8.6 (3.5-10.8) 10^3/ul RBC 5.46 H (4.00-5.40) 10^6/ul Hgb 18.5 H (12.0-16.0) g/dl Hct 54 H (35-47) % MCV 98 H (80-97) fL MCH 34 H (27-31) pg MCHC 35 (31-36) g/dl RDW 15 (10.5-15) % Plt Count 108 L (150-450) 10^3/ul MPV 10.3 (7.4-10.4) fL Neut % (Auto) 70.5 % Lymph % (Auto) 15.2 % [place] % (Auto) 10.3 % Eos % (Auto) 3.3 % Baso % (Auto) 0.7 % Absolute Neuts (auto) 6.1 (1.5-7.7) 10^3/ul Absolute Lymphs (auto) 1.3 (1.0-4.8) 10^3/ul Absolute Monos (auto) 0.9 H (0-0.8) 10^3/ul Absolute Eos (auto) 0.3 (0-0.6) 10^3/ul Absolute Basos (auto) 0.1 (0-0.2) 10^3/ul Absolute Nucleated RBC 0 10^3/ul Nucleated RBC % 0 INR (Anticoag Therapy) 0.92 (0.77-1.02) Sodium 130 L (135-145) mmol/L Potassium 5.1 H (3.5-5.0) mmol/L Chloride 96 L (101-111) mmol/L Carbon Dioxide 22 (22-32) mmol/L Anion Gap 12 H (2-11) mmol/L BUN 50 H (6-24) mg/dL Creatinine 7.17 H (0.51-0.95) mg/dL Est GFR ( Amer) 7.6 (>60) Est GFR (Non-Af Amer) 6.3 (>60) BUN/Creatinine Ratio 7.0 L (8-20) Glucose 73 (70-100) mg/dL Lactic Acid (0.5-2.0) mmol/L Calcium 9.7 (8.6-10.3) mg/dL Total Bilirubin 0.40 (0.2-1.0) mg/dL AST 10 L (13-39) U/L ALT 9 (7-52) U/L Alkaline Phosphatase 90 (34-104) U/L Total Protein 7.5 (6.4-8.9) g/dL Albumin 4.1 (3.2-5.2) g/dL Globulin 3.4 (2-4) g/dL Albumin/Globulin Ratio 1.2 (1-3) 11/16/18 Range/Units 22:09 WBC (3.5-10.8) 10^3/ul RBC (4.00-5.40) 10^6/ul Hgb (12.0-16.0) g/dl Hct (35-47) % MCV (80-97) fL MCH (27-31) pg MCHC (31-36) g/dl RDW (10.5-15) % Plt Count (150-450) 10^3/ul MPV (7.4-10.4) fL Neut % (Auto) % Lymph % (Auto) % [place] % (Auto) % Eos % (Auto) % Baso % (Auto) % Absolute Neuts (auto) (1.5-7.7) 10^3/ul Absolute Lymphs (auto) (1.0-4.8) 10^3/ul Absolute Monos (auto) (0-0.8) 10^3/ul Absolute Eos (auto) (0-0.6) 10^3/ul Absolute Basos (auto) (0-0.2) 10^3/ul Absolute Nucleated RBC 10^3/ul Nucleated RBC % INR (Anticoag Therapy) (0.77-1.02) Sodium (135-145) mmol/L Potassium (3.5-5.0) mmol/L Chloride (101-111) mmol/L Carbon Dioxide (22-32) mmol/L Anion Gap (2-11) mmol/L BUN (6-24) mg/dL Creatinine (0.51-0.95) mg/dL Est GFR ( Amer) (>60) Est GFR (Non-Af Amer) (>60) BUN/Creatinine Ratio (8-20) Glucose (70-100) mg/dL Lactic Acid 1.2 (0.5-2.0) mmol/L Calcium (8.6-10.3) mg/dL Total Bilirubin (0.2-1.0) mg/dL AST (13-39) U/L ALT (7-52) U/L Alkaline Phosphatase (34-104) U/L Total Protein (6.4-8.9) g/dL Albumin (3.2-5.2) g/dL Globulin (2-4) g/dL Albumin/Globulin Ratio (1-3) Result Diagrams: 11/16/18 22:09 11/16/18 22:09 Lab Statement: Any lab studies that have been ordered have been reviewed, and results considered in the medical decision making process. GIGU Course/Dx - Course Course Of Treatment: This patient is a 42 year old F with a PMHx of stage 4 polycystic kidney disease presenting to [facility] with a chief complaint of infection of her PD port in the left abdomen since last night. The patient rates the pain 8/10 in severity. Patient reports pain, redness, and soreness all at her port site and her port giving brown colored drainage. Patient denies fever, abdominal pain, and changes in appetite. I spoke with Dr. Shakeel Gonzalez , logistics engineer, who gave advice on what antibiotics to give. 22:58. I spoke with Margaret Lewis DO, hospitalist, who agreed to admit the patient. - Diagnoses Provider Diagnoses: Infection due to peritoneal dialysis catheter - Physician Notifications Discussed Care Of Patient With: Shakeel Gonzalez - Numerical Control Machine Operator Time Discussed With Above Provider: 22:55 Instructed by Provider To: Other - Advised on what antibiotics to give Discharge - Sign-Out/Discharge Documenting (check all that apply): Patient Departure - Admit - Discharge Plan Condition: Fair Disposition: ADMITTED TO [facility] - Billing Disposition and Condition Condition: FAIR Disposition: Admitted to [facility] - Attestation Statements Document Initiated by Zack: Yes Documenting Scribe: Artie Soria Provider For Whom Zack is Documenting (Include Credential): MD Zack Stewart Attestation: Artie Terry, [email or web address] for Nicholas Trevino MD on 11/17/18 at 0316. Scribe Documentation Reviewed: Yes Provider Attestation: The documentation as recorded by the Artie ewing accurately reflects the service I personally performed and the decisions made by me, Nicholas Trevino MD Status of Scribcarmen Document: Viewed Consult Consult: 22:58. Dr. Trevino spoke with Margaret Lewis DO, hospitalist, who agreed to admit the patient.
[2018-11-16] MEDS ORDERED: NS 0.9% 100 ML* 100 ML ONE (23:18)
[2018-11-16] MEDS ORDERED: Vancomycin(*) 1,000 MG BAG/ADDV IVPB ONE (23:19)
[2018-11-17] MEDS: oxyCODONE/Acetamin 5/325 MG* TAB PO PRN ×2 (00:24→21:12)
[2018-11-17] MEDS ORDERED: Gentamicin ADULT per pharmacy 1 NOTE MISC FOLLOW UP PRN (00:29)
[2018-11-17] MEDS ORDERED: Vancomycin(*) 0 MG in NS 0.9% 250 ML* 250 ML IVPB SCH (01:00)
[2018-11-17] MEDS ORDERED: Vancomycin per Pharmacy* NOTE FOLLOW UP PRN (01:37)
[2018-11-17] MEDS ORDERED: Albuterol HFA INHALER* 8 gm MDI INH PRN (03:18)
--- NOTE | 2018-11-17 03:52 | HP ---
CC: Regi Garnica NP; Dr. Gonzlaez * HISTORY AND PHYSICAL: DATE OF ADMISSION: 11/16/18 TIME OF ADMISSION: 12:30 a.m. CHIEF COMPLAINT: Pain at the PD cath site. HISTORY OF PRESENT ILLNESS: This is a 42-year-old female with history of polycystic kidney disease who has been on dialysis for 6 months. She has been back and forth between hemodialysis and peritoneal dialysis due to complications with the PD site, namely infection, which she says she has been experiencing multiple times since it was inserted. Most recently, she was treated with cephalexin and completed a course of antibiotics this past Friday. She felt the infection completely resolved, but then last night, she noticed pain at the site and she was texting with her dialysis nurse who got in touch with Dr. Gonzalez who instructed her to come to the emergency department. She also noticed that around the site was draining thick brown fluid which had no odor associated with it and she has not had any fevers. PAST MEDICAL HISTORY: Asthma, autosomal dominant polycystic kidney disease which was diagnosed at age 22 and she believes she had a stroke that was self- diagnosed at home and she did not report to the hospital. She had symptoms that lasted approximately 20 minutes and she thinks it may have been "a mini stroke." SOCIAL HISTORY: She is a never smoker. She does not drink alcohol. Her emergency contact is her , James. REVIEW OF SYSTEMS: She denies fevers, chills, nausea, vomiting, chest pain, shortness of breath, leg swelling, headache. Remainder of the 14-point review of systems is negative. PHYSICAL EXAMINATION GENERAL: Alert, well-appearing female, who is in no distress and is nontoxic appearing. VITAL SIGNS: Temperature 98.6, heart rate 80, respiratory rate 18, pulse ox 99 % on room air, blood pressure 116/72. HEENT: Pupils are equal, round, and reactive to light. Facial plethora is noted. Oral mucosa is moist. NECK: No JVP. No adenopathy. LUNGS: Clear. No wheezes or rhonchi. CHEST: Regular rate and rhythm. She does have a systolic murmur throughout. ABDOMEN: The PD catheter has surrounding erythema with no obvious drainage and is tender to palpation. She is also tender to palpation over the left flank which she says is chronic. Her left kidney is palpable. She has no guarding or rebound. EXTREMITIES: No edema, rashes or ulcers. Her distal pulses are 2+ and her skin is warm. She has a right upper extremity fistula with a thrill. DIAGNOSTIC STUDIES/LAB DATA: White blood cells 8.6, hemoglobin 18.5, platelets 108,000. INR is 0.92. Sodium 130, potassium 5.1, chloride 96, bicarb 22, BUN 50, creatinine 7.1, glucose 73, lactic acid 1.2. ASSESSMENT AND PLAN: This is a 42-year-old female with autosomal dominant polycystic kidney disease, who presents to the emergency department with pain at her PD catheter site with suspicion of inspection. 1. Soft tissue infection: Dr. Gonzalez has recommended gentamicin and vancomycin. She received a dose of each in the emergency department and I am ordering them to be continued per pharmacy protocol which should be dosed by level of dialysis. I am sending stat blood cultures now. She does not have evidence of sepsis at this time. She does not need volume resuscitation and I am treating her pain at the site of infection. 2. Polycystic kidney disease, on dialysis: She is euvolemic at this time. She has a reportedly working fistula in the right upper extremity, which can be used for hemodialysis. Her electrolytes are acceptable. 3. Thrombocytopenia: This is chronic. I suspect she has some degree of splenomegaly as well. 4. Asthma: She is not in exacerbation. Continue p.r.n. albuterol. 5. Med Rec: Please note that her medications have not been reconciled and I do not have access to Dr. Gonzalez's medication list. It is important that these are reconciled in the morning. [id number]/[facility] #: [id number] JOSSELINE
[2018-11-17] MEDS: Heparin VIAL(*) 5000 UNITS/ML VIAL (FIVE THOUSAND) SUBCUT SCH ×3 (05:56→21:06)
[2018-11-17] MEDS: Citalopram TAB* 20 MG PO SCH ×2 (05:59→20:12)
[2018-11-17 06:52] LABS: Hematocrit 49 % (35-47); Mean Corpuscular HGB Conc 35 g/dl (31-36); Mean Corpuscular Hemoglobin 34 pg (27-31); Mean Corpuscular Volume 98 fL (80-97); Red Blood Count 4.96 10^6/ul (4.00-5.40); Red Cell Distribution Width 15 % (10.5-15); White Blood Count 6.3 10^3/ul (3.5-10.8)
[2018-11-17 07:02] LABS: BUN/Creatinine Ratio 6.9 (8-20); Calcium 9.1 mg/dL (8.6-10.3); EGFR Non-African American 6.2 (>60)
[2018-11-17 07:03] LABS: Potassium 5.3 mmol/L (3.5-5.0)
[2018-11-17 08:17] LABS: ABS Basophils 0.1 10^3/ul (0-0.2); ABS Eosinophils 0.4 10^3/ul (0-0.6); ABS Lymphocytes 0.9 10^3/ul (1.0-4.8); ABS Monocytes 0.7 10^3/ul (0-0.8); ABS Neutrophils 4.3 10^3/ul (1.5-7.7); ABS Nucleated RBC 0 10^3/ul; Eosinophil % 5.6 %; Lymphocyte % 14.2 %; Mean Platelet Volume 10.3 fL (7.4-10.4); Nucleated Red Blood Cells % 0.1; Platelet Count 85 10^3/ul (150-450)
[2018-11-17] MEDS: Lisinopril TAB* 10 MG PO SCH (09:56)
[2018-11-17] MEDS: Furosemide TAB* 20 MG PO SCH (09:57)
[2018-11-17] MEDS: Aspirin 81 mg CHEW TAB* 81 MG TAB.CHEW PO SCH (09:57)
[2018-11-17] MEDS: Pantoprazole TAB * 40 MG TAB PO SCH (09:57)
[2018-11-17] MEDS: Cyanocobalamin TAB* 500 MCG PO SCH (09:57)
[2018-11-17] MEDS: Cetirizine* 10 MG TAB PO SCH (09:57)
[2018-11-17] MEDS: Diltiazem CD CAP* 240 MG PO SCH (09:57)
[2018-11-17] MEDS: Montelukast Sodium TAB* 10 MG PO SCH (09:57)
[2018-11-17] MEDS: Cholecalciferol TAB* 1000 UNITS PO SCH (09:57)
[2018-11-17] MEDS: Ipratropium 0.5MG/2.5ML NEB* 0.5 MG/2.5 ML NEB.SOLN INH PRN ×2 (10:10→22:12)
[2018-11-17] MEDS ORDERED: Gentamicin Trough Level 1 NOTE MISC FOLLOW UP SCH (12:00)
[2018-11-17] MEDS ORDERED: Vancomycin Random Level* NOTE FOLLOW UP ONE (12:00)
--- NOTE | 2018-11-17 12:04 | PN ---
Subjective Date of Service: 11/17/18 Interval History: Patient seen today. She is in bed. Upset emotionally secondary to her recurrent PD infections. No other complains. I did explain to her that the PD catheter need to be removed. I discussed with Dr. Gonzalez and he concurred with the plan. She does have a functional fistula left upper arm. Will plan to have HD as per Dr. Gonzalez plan. Will try to reach Dr. Lopez from surgery for removal of the catheter Family History: Unchanged from Admission Social History: Unchanged from Admission Objective Active Medications: Albuterol (Ventolin Hfa Inhaler*) 2 puff INH Q4H PRN PRN Reason: SOB/WHEEZING Aspirin (Aspirin 81 Mg Chew Tab*) 81 mg PO QAM [facility] Last Admin: 11/17/18 09:57 Dose: 81 mg Cetirizine HCl (Zyrtec*) 10 mg PO QAM [facility]; Protocol Last Admin: 11/17/18 09:57 Dose: 10 mg Cholecalciferol (Vitamin D Tab*) 2,000 units PO QAM [facility] Last Admin: 11/17/18 09:57 Dose: 2,000 units Citalopram Hydrobromide (Celexa Tab*) 20 mg PO BEDTIME [facility] Last Admin: 11/17/18 05:59 Dose: 20 mg Cyanocobalamin (Vitamin B12 Tab*) 500 mcg PO QAM [facility] Last Admin: 11/17/18 09:57 Dose: 500 mcg Diltiazem HCl (Cardizem Cd Cap*) 240 mg PO QAM [facility] Last Admin: 11/17/18 09:57 Dose: 240 mg Furosemide (Lasix Tab*) 20 mg PO QAM [facility] Last Admin: 11/17/18 09:57 Dose: 20 mg Heparin Sodium (Porcine) (Heparin Vial(*)) 5,000 units SUBCUT Q8HR [facility] Last Admin: 11/17/18 05:56 Dose: 5,000 units Ipratropium [place] (Atrovent 0.5 Mg Neb.Iona*) 0.5 mg INH Q6H PRN PRN Reason: SOB/WHEEZING Last Admin: 11/17/18 10:10 Dose: 0.5 mg Lisinopril (Prinivil Tab*) 30 mg PO QAM [facility] Last Admin: 11/17/18 09:56 Dose: 30 mg Montelukast Sodium (Singulair Tab*) 10 mg PO QAM [facility] Last Admin: 11/17/18 09:57 Dose: 10 mg Nortriptyline HCl (Pamelor Cap*) 25 mg PO BEDTIME [facility] Oxycodone/Acetaminophen (Percocet 5/325 Tab*) 1 tab PO Q4H PRN PRN Reason: Pain Last Admin: 11/17/18 00:24 Dose: 1 tab Pantoprazole Sodium (Protonix Tab (Nf)) 40 mg PO QAM [facility] Last Admin: 11/17/18 09:57 Dose: 40 mg Pharmacy Consult (Gentamicin Adult Per Pharmacy) 1 note FOLLOW UP .GENT PER PHARMACY PRN PRN Reason: PER PROTOCOL Stop: 12/01/18 00:31 Pharmacy Consult (Vancomycin Per Pharmacy*) 1 note FOLLOW UP . PRN PRN Reason: PER PROTOCOL Pharmacy Consult (Vancomycin Random Level*) 1 note FOLLOW UP ONCE ONE Stop: 11/17/18 12:01 Pharmacy Profile Note (Gentamicin Trough Level) 1 note FOLLOW UP 1200 [facility] Vital Signs - 8 hr 11/17/18 11/17/18 11/17/18 07:14 08:00 10:12 Temperature 97.9 F Pulse Rate 61 68 Respiratory 18 18 16 Rate Blood Pressure 112/59 (mmHg) O2 Sat by Pulse 93 95 95 Oximetry Oxygen Devices in Use Now: None Appearance: Awake, Alert, Emotionally distressed Eyes: No Scleral Icterus, PERRLA, - - EOMI Ears/Nose/Mouth/Throat: NL Teeth, Lips, Gums, Clear Oropharnyx, Mucous Membranes Moist Neck: NL Appearance and Movements; NL JVP, Trachea Midline Respiratory: Symmetrical Chest Expansion and Respiratory Effort, Clear to Auscultation Cardiovascular: NL Sounds; No Murmurs; No JVD, RRR, - Abdominal: NL Sounds; No Tenderness; No Distention, - - Peritoneal dialysis in place. erythema resolving. Non tender Extremities: No Edema Neurological: Alert and Oriented x 3 Result Diagrams: 11/17/18 06:27 11/17/18 06:27 Additional Lab and Data: Lab Results 11/16/18 11/16/18 11/16/18 Range/Units 22:09 22:09 22:09 WBC 8.6 (3.5-10.8) 10^3/ul RBC 5.46 H (4.00-5.40) 10^6/ul Hgb 18.5 H (12.0-16.0) g/dl Hct 54 H (35-47) % MCV 98 H (80-97) fL MCH 34 H (27-31) pg MCHC 35 (31-36) g/dl RDW 15 (10.5-15) % Plt Count 108 L (150-450) 10^3/ul MPV 10.3 (7.4-10.4) fL Neut % (Auto) 70.5 % Lymph % (Auto) 15.2 % [place] % (Auto) 10.3 % Eos % (Auto) 3.3 % Baso % (Auto) 0.7 % Absolute Neuts (auto) 6.1 (1.5-7.7) 10^3/ul Absolute Lymphs (auto) 1.3 (1.0-4.8) 10^3/ul Absolute Monos (auto) 0.9 H (0-0.8) 10^3/ul Absolute Eos (auto) 0.3 (0-0.6) 10^3/ul Absolute Basos (auto) 0.1 (0-0.2) 10^3/ul Absolute Nucleated RBC 0 10^3/ul Nucleated RBC % 0 INR (Anticoag Therapy) 0.92 (0.77-1.02) Sodium 130 L (135-145) mmol/L Potassium 5.1 H (3.5-5.0) mmol/L Chloride 96 L (101-111) mmol/L Carbon Dioxide 22 (22-32) mmol/L Anion Gap 12 H (2-11) mmol/L BUN 50 H (6-24) mg/dL Creatinine 7.17 H (0.51-0.95) mg/dL Est GFR ( Amer) 7.6 (>60) Est GFR (Non-Af Amer) 6.3 (>60) BUN/Creatinine Ratio 7.0 L (8-20) Glucose 73 (70-100) mg/dL Lactic Acid (0.5-2.0) mmol/L Calcium 9.7 (8.6-10.3) mg/dL Total Bilirubin 0.40 (0.2-1.0) mg/dL AST 10 L (13-39) U/L ALT 9 (7-52) U/L Alkaline Phosphatase 90 (34-104) U/L Total Protein 7.5 (6.4-8.9) g/dL Albumin 4.1 (3.2-5.2) g/dL Globulin 3.4 (2-4) g/dL Albumin/Globulin Ratio 1.2 (1-3) 11/16/18 Range/Units 22:09 WBC (3.5-10.8) 10^3/ul RBC (4.00-5.40) 10^6/ul Hgb (12.0-16.0) g/dl Hct (35-47) % MCV (80-97) fL MCH (27-31) pg MCHC (31-36) g/dl RDW (10.5-15) % Plt Count (150-450) 10^3/ul MPV (7.4-10.4) fL Neut % (Auto) % Lymph % (Auto) % [place] % (Auto) % Eos % (Auto) % Baso % (Auto) % Absolute Neuts (auto) (1.5-7.7) 10^3/ul Absolute Lymphs (auto) (1.0-4.8) 10^3/ul Absolute Monos (auto) (0-0.8) 10^3/ul Absolute Eos (auto) (0-0.6) 10^3/ul Absolute Basos (auto) (0-0.2) 10^3/ul Absolute Nucleated RBC 10^3/ul Nucleated RBC % INR (Anticoag Therapy) (0.77-1.02) Sodium (135-145) mmol/L Potassium (3.5-5.0) mmol/L Chloride (101-111) mmol/L Carbon Dioxide (22-32) mmol/L Anion Gap (2-11) mmol/L BUN (6-24) mg/dL Creatinine (0.51-0.95) mg/dL Est GFR ( Amer) (>60) Est GFR (Non-Af Amer) (>60) BUN/Creatinine Ratio (8-20) Glucose (70-100) mg/dL Lactic Acid 1.2 (0.5-2.0) mmol/L Calcium (8.6-10.3) mg/dL Total Bilirubin (0.2-1.0) mg/dL AST (13-39) U/L ALT (7-52) U/L Alkaline Phosphatase (34-104) U/L Total Protein (6.4-8.9) g/dL Albumin (3.2-5.2) g/dL Globulin (2-4) g/dL Albumin/Globulin Ratio (1-3) Microbiology and Other Data: Microbiology 11/17/18 08:30 Gram Stain - Final Abdomen Assess/Plan/Problems-Billing Assessment: 42 y/o female presented with recurrent infected PD catheter infections. I will call surgery for removal and dialysis via hemodialysis using her left arm fistual. Dr. Gonzalez aware - Patient Problems (1) Cellulitis, abdominal wall Current Visit: Yes Status: Acute Code(s): L03.311 - CELLULITIS OF ABDOMINAL WALL SNOMED Code(s): 20183424 Comment: - Improving on Vanco and Gentamycin renal dose. - Dressing chagnes. Will remove PD catheter today and will follow up with Surgery for removal. HD as per Dr. Gonzalez. - F/u wound culture and sensitivities (2) ESRD (end stage renal disease) on dialysis Current Visit: Yes Status: Acute Code(s): N18.6 - END STAGE RENAL DISEASE; Z99.2 - DEPENDENCE ON RENAL DIALYSIS SNOMED Code(s): 619007766 Comment: - Improving on Vanco and Gentamycin renal dose. - Dressing chagnes. Will remove PD catheter today and will follow up with Surgery for removal. HD as per Dr. Gonzalez. - F/u wound culture and sensitivities (3) Hypertension Current Visit: Yes Status: Acute Code(s): I10 - ESSENTIAL (PRIMARY) HYPERTENSION SNOMED Code(s): 29249819 Comment: - Continue lisinopril 30 mg daily - Cardizem 240 mg daily (4) Depression Current Visit: Yes Status: Acute Code(s): F32.9 - MAJOR DEPRESSIVE DISORDER , SINGLE EPISODE, UNSPECIFIED SNOMED Code(s): 26636285 Comment: - Celexa 20 mg daily - Amitryptline 25 mg HS (5) DVT prophylaxis Current Visit: Yes Status: Acute Code(s): DKI1652 - SNOMED Code(s): 082019462 Comment: Hep SQ
[2018-11-17] MEDS: Vitamin E CAP* 200 UNITS PO SCH (12:41)
[2018-11-17] MEDS: Calcium Polycarbophil TAB* 625 MG PO SCH ×3 (12:41→20:12)
[2018-11-17 12:45] LABS: Vancomycin Random 15.3 mcg/mL
--- NOTE | 2018-11-17 14:29 | CONSULT ---
Consult Consult: CC: infected PD catheter. HPI: This is a 42 yo F with ESRD who had a laparoscopic PD cath placement in 2017 and has had recurrent infections. She was admitted earlier today wit recurrent infection with pus draining around the catheter exit site. She has a functioning AVF and will be starting HD. Dr. Cobb has requested removal of the PD catheter after discussion with Dr. Gonzalez. The patient reports some pain and tenderness at the catheter site. 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, Ortega's, obesity PSH: Umbilical hernia repair, Lap PD cath placement, AV fistula ALL: NKA Active Medications Generic Name Dose Route Start Last Admin Trade Name Freq PRN Reason Stop Dose Admin Albuterol 2 puff 11/17/18 03:18 Ventolin Hfa Inhaler* INH Q4H PRN SOB/WHEEZING Aspirin 81 mg 11/17/18 09:00 11/17/18 09:57 Aspirin 81 Mg Chew Tab* PO 81 mg QAM KO Administration Calcium Polycarbophil 625 mg 11/17/18 13:00 11/17/18 12:41 Fibercon Tab* PO Not Given QID KO Cetirizine HCl 10 mg 11/17/18 09:00 11/17/18 09:57 Zyrtec* PO 10 mg QAM KO Administration Protocol Cholecalciferol 2,000 units 11/17/18 09:00 11/17/18 09:57 Vitamin D Tab* PO 2,000 units QAM KO Administration Citalopram Hydrobromide 20 mg 11/17/18 03:20 11/17/18 05:59 Celexa Tab* PO 20 mg BEDTIME KO Administration Cyanocobalamin 500 mcg 11/17/18 09:00 11/17/18 09:57 Vitamin B12 Tab* PO 500 mcg QAM KO Administration Diltiazem HCl 240 mg 11/17/18 09:00 11/17/18 09:57 Cardizem Cd Cap* PO 240 mg QAM KO Administration Furosemide 20 mg 11/17/18 09:00 11/17/18 09:57 Lasix Tab* PO 20 mg QAM KO Administration Heparin Sodium (Porcine) 5,000 units 11/17/18 06:00 11/17/18 12:41 Heparin Vial(*) SUBCUT Not Given Q8HR KO Ipratropium [place] 0.5 mg 11/17/18 03:18 11/17/18 10:10 Atrovent 0.5 Mg Neb.Iona* INH 0.5 mg Q6H PRN Administration SOB/WHEEZING Lisinopril 30 mg 11/17/18 09:00 11/17/18 09:56 Prinivil Tab* PO 30 mg QAM KO Administration Montelukast Sodium 10 mg 11/17/18 09:00 11/17/18 09:57 Singulair Tab* PO 10 mg QAM KO Administration Nortriptyline HCl 25 mg 11/17/18 21:00 Pamelor Cap* PO BEDTIME KO Oxycodone/Acetaminophen 1 tab 11/16/18 23:53 11/17/18 00:24 Percocet 5/325 Tab* PO 1 tab Q4H PRN Administration Pain Pantoprazole Sodium 40 mg 11/17/18 09:00 11/17/18 09:57 Protonix Tab (Nf) PO 40 mg QAM KO Administration Pharmacy Consult 1 note 11/17/18 00:29 Gentamicin Adult Per Pharmacy FOLLOW UP 12/01/18 00:31 .GENT PER PHARMACY PRN PER PROTOCOL Pharmacy Consult 1 note 11/17/18 01:37 Vancomycin Per Pharmacy* FOLLOW UP . PRN PER PROTOCOL Pharmacy Profile Note 1 note 11/17/18 12:00 11/17/18 13:17 Gentamicin Trough Level FOLLOW UP 1 note 1200 KO Administration Vitamin E 1,000 units 11/17/18 13:00 11/17/18 12:41 Vitamin E Cap* PO Not Given QAM KO PE: Vital Signs Temp 98.4 F 11/17/18 11:28 Pulse 62 11/17/18 11:28 Resp 16 11/17/18 11:28 BP 136/64 11/17/18 11:28 Pulse Ox 96 11/17/18 11:28 Gen: NAD Abd: obese, multiple scars, PD catheter exiting L side abdomen; soft with tenderness along the course of the PD catheter. Laboratory Results - last 24 hr 11/16/18 11/16/18 11/16/18 22:09 22:09 22:09 WBC 8.6 RBC 5.46 H Hgb 18.5 H Hct 54 H MCV 98 H MCH 34 H MCHC 35 RDW 15 Plt Count 108 L MPV 10.3 Neut % (Auto) 70.5 Lymph % (Auto) 15.2 [place] % (Auto) 10.3 Eos % (Auto) 3.3 Baso % (Auto) 0.7 Absolute Neuts (auto) 6.1 Absolute Lymphs (auto) 1.3 Absolute Monos (auto) 0.9 H Absolute Eos (auto) 0.3 Absolute Basos (auto) 0.1 Absolute Nucleated RBC 0 Nucleated RBC % 0 Hem Pathologist Commnt INR (Anticoag Therapy) 0.92 Sodium 130 L Potassium 5.1 H Chloride 96 L Carbon Dioxide 22 Anion Gap 12 H BUN 50 H Creatinine 7.17 H Est GFR ( Amer) 7.6 Est GFR (Non-Af Amer) 6.3 BUN/Creatinine Ratio 7.0 L Glucose 73 Lactic Acid Calcium 9.7 Total Bilirubin 0.40 AST 10 L ALT 9 Alkaline Phosphatase 90 Total Protein 7.5 Albumin 4.1 Globulin 3.4 Albumin/Globulin Ratio 1.2 Gentamicin Trough Random Vancomycin 11/16/18 11/17/18 11/17/18 22:09 06:27 06:27 WBC 6.3 RBC 4.96 Hgb 17.0 H Hct 49 H MCV 98 H MCH 34 H MCHC 35 RDW 15 Plt Count 85 L MPV 10.3 Neut % (Auto) 68.0 Lymph % (Auto) 14.2 [place] % (Auto) 10.5 Eos % (Auto) 5.6 Baso % (Auto) 1.7 Absolute Neuts (auto) 4.3 Absolute Lymphs (auto) 0.9 L Absolute Monos (auto) 0.7 Absolute Eos (auto) 0.4 Absolute Basos (auto) 0.1 Absolute Nucleated RBC 0 Nucleated RBC % 0.1 Hem Pathologist Commnt INR (Anticoag Therapy) Sodium 130 L Potassium 5.3 H Chloride 99 L Carbon Dioxide 22 Anion Gap 9 BUN 50 H Creatinine 7.23 H Est GFR ( Amer) 7.5 Est GFR (Non-Af Amer) 6.2 BUN/Creatinine Ratio 6.9 L Glucose 97 Lactic Acid 1.2 Calcium 9.1 Total Bilirubin AST ALT Alkaline Phosphatase Total Protein Albumin Globulin Albumin/Globulin Ratio Gentamicin Trough Random Vancomycin 11/17/18 12:09 WBC RBC Hgb Hct MCV MCH MCHC RDW Plt Count MPV Neut % (Auto) Lymph % (Auto) [place] % (Auto) Eos % (Auto) Baso % (Auto) Absolute Neuts (auto) Absolute Lymphs (auto) Absolute Monos (auto) Absolute Eos (auto) Absolute Basos (auto) Absolute Nucleated RBC Nucleated RBC % Hem Pathologist Commnt INR (Anticoag Therapy) Sodium Potassium Chloride Carbon Dioxide Anion Gap BUN Creatinine Est GFR ( Amer) Est GFR (Non-Af Amer) BUN/Creatinine Ratio Glucose Lactic Acid Calcium Total Bilirubin AST ALT Alkaline Phosphatase Total Protein Albumin Globulin Albumin/Globulin Ratio Gentamicin Trough 5.9 Random Vancomycin 15.3 Impression: infection of PD catheter. Plan: Will remove PD catheter. She will have dialysis through the AVF as per Dr. Gonzalez. The nature of the catheter removal procedure was discussed with the patient. Risks were explained including, not limited to: bleeding, infection, pain, scarring, blood clots, pneumonia, N/V, reaction to medication, poor healing and the risks of anesthesia. All questions were answered. She stated understanding and agreed to proceed.
[2018-11-17] MEDS ORDERED: Lidocaine 2% PF * 5 ML VIAL ONE (15:43)
[2018-11-17] MEDS ORDERED: Ondansetron INJ* 2 MG/ML VIAL ONE (15:43)
[2018-11-17] MEDS ORDERED: Dexamethasone IV* 4 MG/ML 1 ML (4 MG) ONE (15:43)
[2018-11-17] MEDS ORDERED: Propofol* 10 MG/ML 20 ML BTL ONE (15:43)
[2018-11-17] MEDS ORDERED: fentaNYL* 50 MCG/ML 2 ML VIAL (100 MCG VIAL) ONE (15:44)
[2018-11-17] MEDS ORDERED: Midazolam* 1 MG/ML 5 ML VIAL (5 MG) ONE (15:44)
[2018-11-17] MEDS ORDERED: KETAMINE HCL* 50 MG/ML 10 ML VIAL ONE (15:44)
[2018-11-17] MEDS ORDERED: Buffered Lidocaine 1% SYRIN* 1 ML/SYRINGE INTRADERM ONE (16:16)
[2018-11-17] MEDS ORDERED: Bupivacaine 0.5% W/EPI SDV* 30 ML VIAL ONE (16:52)
[2018-11-17] MEDS ORDERED: Lidocaine 1% INJ* 10 MG/ML 30 ML SDV ONE (16:52)
[2018-11-17] MEDS ORDERED: NS 0.45% 1000 ML BAG* 1,000 ML IV SCH (17:00)
[2018-11-17] MEDS ORDERED: Midazolam* 1 MG/ML 2 ML VIAL (2 MG) ONE (17:07)
[2018-11-17] MEDS ORDERED: EPHEDrine (Pressors)* 50 MG/ML VIAL ONE (17:26)
[2018-11-17] MEDS ORDERED: Phenylephrine INJ* 10 MG/ML 1 ML VIAL (10 MG) ONE (17:36)
--- NOTE | 2018-11-17 17:51 | BRIEFOPN ---
Brief Operative Note - Surgery Procedures: PRE/POSTOP DX: INFECTED PD CATHETER PROC: REMOVAL PD CATHETER SURG: MECENAS ASSIST: SUZANNE PÉRZE ANES: LOCAL/MAC; TOAL EBL: MIN SPEC: CULTURES OF TUNNEL DRAIN: 11/06 " ZOË COMPL: NONE COND: STABLE TO RR.
[2018-11-17] MEDS ORDERED: fentaNYL* 50 MCG/ML 2 ML VIAL (100 MCG VIAL) IV PRN (18:06)
[2018-11-17] MEDS ORDERED: DiMENhydriNATE IV* 50 MG/ML VIAL IV PUSH PRN (18:06)
[2018-11-17] MEDS ORDERED: Naloxone* 0.4 MG/ML 1 ML VIAL IV PRN (18:06)
[2018-11-17] MEDS ORDERED: Nortriptyline CAP* 25 MG PO SCH (21:00)
--- NOTE | 2018-11-18 01:19 | OP ---
CC: Shakeel Gonzalez MD; Regi Garnica NP * DATE OF OPERATION: 11/17/18 - ROOM #421 DATE OF : 75 SURGEON: Felipe Schneider MD VICE PRESIDENT [employer] INSIGHTS: [employer] student. ANESTHESIOLOGIST: Dr. Edward Luna. ANESTHESIA: Local MAC. PRE-OP DIAGNOSIS: Infected peritoneal dialysis catheter. POST-OP DIAGNOSIS: Infected peritoneal dialysis catheter. OPERATIVE PROCEDURE: Removal of infected peritoneal dialysis catheter. ESTIMATED BLOOD LOSS: Minimal. IV FLUIDS: Crystalloid. SPECIMENS: Cultures of tunneled peritoneal dialysis catheter. DRAINS: 0.25-inch [place] left at the exit site. COMPLICATIONS: None. COUNTS: Instrument, needle, and sponge counts were correct. DESCRIPTION OF PROCEDURE: The patient was brought to the operating room and placed on the table supine. Sequential compression devices were placed on both lower extremities. Intravenous sedation was administered. Her abdomen was prepped and draped in usual sterile fashion and time-out was performed. The area of the tunnel was palpated to confirm the pathway of the catheter. Local anesthetic was infiltrated along this and over the left paramedian site where the catheter entered into the rectus sheath. Transverse incision was made directly over the site and the catheter was identified. The surrounding capsule was incised with cautery and then the catheter was clamped and it was divided sharply with the distal portion being allowed to fall out of the abdominal wall. The site was noted to have a little flores purulence and cultures of the tunnel were sent. The remaining catheter was then elevated in the wound and retractors were placed to allow visualization of the course of the catheter , which was followed and cautery was used to dissect the catheter free, freeing both cuffs, and the catheter was removed. Irrigation was performed of the wound , which was then inspected for hemostasis which was excellent and then the wound was loosely closed with 4-0 Prolene sutures using vertical mattress stitch. At the exit site, the scar was excised and then the site irrigated and 0.25-inch [place] was placed into the tunnel and it was sutured to the edge of the wound with a 4-0 Prolene. Dressings were applied to all the sites. The patient tolerated the procedure well and was transferred to recovery stable. [id number]/[facility] #: [id number] [facility]
[2018-11-18] MEDS: oxyCODONE/Acetamin 5/325 MG* TAB PO PRN ×2 (01:44→05:42)
[2018-11-18] MEDS: Heparin VIAL(*) 5000 UNITS/ML VIAL (FIVE THOUSAND) SUBCUT SCH ×2 (05:13→14:13)
[2018-11-18] MEDS: Montelukast Sodium TAB* 10 MG PO SCH (08:38)
[2018-11-18] MEDS: Diltiazem CD CAP* 240 MG PO SCH (08:38)
[2018-11-18] MEDS: Vitamin E CAP* 200 UNITS PO SCH (08:38)
[2018-11-18] MEDS: Cyanocobalamin TAB* 500 MCG PO SCH (08:38)
[2018-11-18] MEDS: Aspirin 81 mg CHEW TAB* 81 MG TAB.CHEW PO SCH (08:38)
[2018-11-18] MEDS: Cetirizine* 10 MG TAB PO SCH (08:38)
[2018-11-18] MEDS: Furosemide TAB* 20 MG PO SCH (08:38)
[2018-11-18] MEDS: Cholecalciferol TAB* 1000 UNITS PO SCH (08:38)
[2018-11-18] MEDS: Calcium Polycarbophil TAB* 625 MG PO SCH ×2 (08:39→14:13)
[2018-11-18] MEDS: Lisinopril TAB* 10 MG PO SCH (08:39)
[2018-11-18] MEDS: Pantoprazole TAB * 40 MG TAB PO SCH (08:39)
[2018-11-18] MEDS: Ipratropium 0.5MG/2.5ML NEB* 0.5 MG/2.5 ML NEB.SOLN INH PRN (08:52)
[2018-11-18 10:39] LABS: Calcium 9.3 mg/dL (8.6-10.3); EGFR Non-African American 5.8 (>60)
[2018-11-18 10:40] LABS: Potassium 5.3 mmol/L (3.5-5.0)
[2018-11-18 11:06] LABS: Vancomycin Random 9.7 mcg/mL
[2018-11-18] MEDS ORDERED: Bacitracin OINTMENT* 0.5% 0.5 oz TUBE TOPICAL SCH (12:00)
--- NOTE | 2018-11-18 12:03 | PN ---
Progress Note - Progress Note Date of Service: 11/18/18 Note: S: No sig pain. Seen earlier this a.m. by Dr. Schneider. O: Vital Signs - 8 hr 11/18/18 11/18/18 11/18/18 04:12 05:42 07:34 Temperature 97.8 F Pulse Rate 57 Respiratory 18 20 16 Rate Blood Pressure 114/63 (mmHg) O2 Sat by Pulse 96 Oximetry 11/18/18 08:53 Temperature Pulse Rate 58 Respiratory 14 Rate Blood Pressure (mmHg) O2 Sat by Pulse 98 Oximetry Gen: appears comfortable Abd: soft; mild tenderness, joie around mid abd wound. Small amt of dried sang drainage on dsg; moderate amt sang drainage on dsg over Left lateral wound; sharlene in place. Remainder of abd soft, nontender. A/P: s/p removal of infected PD catheter, doing well. Lab work pending, as well as plan for HD either later today vs . a.m.
[2018-11-18 12:38] VITALS: BP 108/61
--- NOTE | 2018-11-18 12:47 | PN ---
Subjective Date of Service: 11/18/18 Interval History: Patient seen today. Doing well. No acute concerns. Peritoneal dialysis catheter removed. Wound culture and the dialysis catheter tip culture negative so far but it did have G+ cocci. discussed with Dr. Gonzalez and agreed to dialyze patient in am and vancomycin Via dialysis tomorrow. Patient feels better, eager to go home. no nausea or vomit Family History: Unchanged from Admission Social History: Unchanged from Admission Objective Active Medications: Albuterol (Ventolin Hfa Inhaler*) 2 puff INH Q4H PRN PRN Reason: SOB/WHEEZING Aspirin (Aspirin 81 Mg Chew Tab*) 81 mg PO QAM [facility] Last Admin: 11/18/18 08:38 Dose: 81 mg Bacitracin (Bacitracin Ointment*) 1 applic TOPICAL DAILY [facility] Calcium Polycarbophil (Fibercon Tab*) 625 mg PO QID [facility] Last Admin: 11/18/18 08:39 Dose: 625 mg Cetirizine HCl (Zyrtec*) 10 mg PO QAM [facility]; Protocol Last Admin: 11/18/18 08:38 Dose: 10 mg Cholecalciferol (Vitamin D Tab*) 2,000 units PO QAM [facility] Last Admin: 11/18/18 08:38 Dose: 2,000 units Citalopram Hydrobromide (Celexa Tab*) 20 mg PO BEDTIME [facility] Last Admin: 11/17/18 20:12 Dose: 20 mg Cyanocobalamin (Vitamin B12 Tab*) 500 mcg PO QAM [facility] Last Admin: 11/18/18 08:38 Dose: 500 mcg Diltiazem HCl (Cardizem Cd Cap*) [facility] Last Admin: 11/18/18 08:38 Dose: 240 mg Furosemide (Lasix Tab*) 20 mg PO QAM [facility] Last Admin: 11/18/18 08:38 Dose: 20 mg Heparin Sodium (Porcine) (Heparin Vial(*)) 5,000 units SUBCUT Q8HR [facility] Last Admin: 11/18/18 05:13 Dose: 5,000 units Ipratropium [place] (Atrovent 0.5 Mg Neb.Iona*) 0.5 mg INH Q6H PRN PRN Reason: SOB/WHEEZING Last Admin: 11/18/18 08:52 Dose: 0.5 mg Lisinopril (Prinivil Tab*) 30 mg PO [facility] Last Admin: 11/18/18 08:39 Dose: 30 mg Montelukast Sodium (Singulair Tab*) 10 mg PO [facility] Last Admin: 11/18/18 08:38 Dose: 10 mg Nortriptyline HCl (Pamelor Cap*) 25 mg PO BEDTIME [facility] Last Admin: 11/17/18 20:12 Dose: 25 mg Oxycodone/Acetaminophen (Percocet 5/325 Tab*) 1 tab PO Q4H PRN PRN Reason: Pain Last Admin: 11/18/18 05:42 Dose: 1 tab Pantoprazole Sodium (Protonix Tab (Nf)) 40 mg PO [facility] Last Admin: 11/18/18 08:39 Dose: 40 mg Pharmacy Consult (Gentamicin Adult Per Pharmacy) 1 note FOLLOW UP .GENT PER PHARMACY PRN PRN Reason: PER PROTOCOL Stop: 12/01/18 00:31 Vitamin E (Vitamin E Cap*) 1,000 units PO [facility] Last Admin: 11/18/18 08:38 Dose: 1,000 units Vital Signs - 8 hr 11/18/18 11/18/18 11/18/18 05:42 07:34 08:00 Temperature 97.8 F Pulse Rate 57 Respiratory 20 16 16 Rate Blood Pressure 114/63 (mmHg) O2 Sat by Pulse 96 98 Oximetry 11/18/18 11/18/18 08:53 11:17 Temperature 98.0 F Pulse Rate 58 54 Respiratory 14 18 Rate Blood Pressure 108/61 (mmHg) O2 Sat by Pulse 98 97 Oximetry Oxygen Devices in Use Now: None Appearance: Awake, alert. no distress Eyes: No Scleral Icterus, - Ears/Nose/Mouth/Throat: NL Teeth, Lips, Gums, Mucous Membranes Moist Neck: NL Appearance and Movements; NL JVP, Trachea Midline Respiratory: Symmetrical Chest Expansion and Respiratory Effort, Clear to Auscultation Cardiovascular: NL Sounds; No Murmurs; No JVD, RRR, No Edema Abdominal: NL Sounds; No Tenderness; No Distention, - - surgical wound clean, dressing intact. suture in place Result Diagrams: 11/17/18 06:27 11/18/18 10:08 Additional Lab and Data: Lab Results 11/16/18 11/16/18 11/16/18 Range/Units 22:09 22:09 22:09 WBC 8.6 (3.5-10.8) 10^3/ul RBC 5.46 H (4.00-5.40) 10^6/ul Hgb 18.5 H (12.0-16.0) g/dl Hct 54 H (35-47) % MCV 98 H (80-97) fL MCH 34 H (27-31) pg MCHC 35 (31-36) g/dl RDW 15 (10.5-15) % Plt Count 108 L (150-450) 10^3/ul MPV 10.3 (7.4-10.4) fL Neut % (Auto) 70.5 % Lymph % (Auto) 15.2 % [place] % (Auto) 10.3 % Eos % (Auto) 3.3 % Baso % (Auto) 0.7 % Absolute Neuts (auto) 6.1 (1.5-7.7) 10^3/ul Absolute Lymphs (auto) 1.3 (1.0-4.8) 10^3/ul Absolute Monos (auto) 0.9 H (0-0.8) 10^3/ul Absolute Eos (auto) 0.3 (0-0.6) 10^3/ul Absolute Basos (auto) 0.1 (0-0.2) 10^3/ul Absolute Nucleated RBC 0 10^3/ul Nucleated RBC % 0 INR (Anticoag Therapy) 0.92 (0.77-1.02) Sodium 130 L (135-145) mmol/L Potassium 5.1 H (3.5-5.0) mmol/L Chloride 96 L (101-111) mmol/L Carbon Dioxide 22 (22-32) mmol/L Anion Gap 12 H (2-11) mmol/L BUN 50 H (6-24) mg/dL Creatinine 7.17 H (0.51-0.95) mg/dL Est GFR ( Amer) 7.6 (>60) Est GFR (Non-Af Amer) 6.3 (>60) BUN/Creatinine Ratio 7.0 L (8-20) Glucose 73 (70-100) mg/dL Lactic Acid (0.5-2.0) mmol/L Calcium 9.7 (8.6-10.3) mg/dL Total Bilirubin 0.40 (0.2-1.0) mg/dL AST 10 L (13-39) U/L ALT 9 (7-52) U/L Alkaline Phosphatase 90 (34-104) U/L Total Protein 7.5 (6.4-8.9) g/dL Albumin 4.1 (3.2-5.2) g/dL Globulin 3.4 (2-4) g/dL Albumin/Globulin Ratio 1.2 (1-3) 11/16/18 Range/Units 22:09 WBC (3.5-10.8) 10^3/ul RBC (4.00-5.40) 10^6/ul Hgb (12.0-16.0) g/dl Hct (35-47) % MCV (80-97) fL MCH (27-31) pg MCHC (31-36) g/dl RDW (10.5-15) % Plt Count (150-450) 10^3/ul MPV (7.4-10.4) fL Neut % (Auto) % Lymph % (Auto) % [place] % (Auto) % Eos % (Auto) % Baso % (Auto) % Absolute Neuts (auto) (1.5-7.7) 10^3/ul Absolute Lymphs (auto) (1.0-4.8) 10^3/ul Absolute Monos (auto) (0-0.8) 10^3/ul Absolute Eos (auto) (0-0.6) 10^3/ul Absolute Basos (auto) (0-0.2) 10^3/ul Absolute Nucleated RBC 10^3/ul Nucleated RBC % INR (Anticoag Therapy) (0.77-1.02) Sodium (135-145) mmol/L Potassium (3.5-5.0) mmol/L Chloride (101-111) mmol/L Carbon Dioxide (22-32) mmol/L Anion Gap (2-11) mmol/L BUN (6-24) mg/dL Creatinine (0.51-0.95) mg/dL Est GFR ( Amer) (>60) Est GFR (Non-Af Amer) (>60) BUN/Creatinine Ratio (8-20) Glucose (70-100) mg/dL Lactic Acid 1.2 (0.5-2.0) mmol/L Calcium (8.6-10.3) mg/dL Total Bilirubin (0.2-1.0) mg/dL AST (13-39) U/L ALT (7-52) U/L Alkaline Phosphatase (34-104) U/L Total Protein (6.4-8.9) g/dL Albumin (3.2-5.2) g/dL Globulin (2-4) g/dL Albumin/Globulin Ratio (1-3) Microbiology and Other Data: Microbiology 11/17/18 08:30 Gram Stain - Final Abdomen Assess/Plan/Problems-Billing Assessment: 42 y/o female presented with recurrent infected PD catheter infections. I will call surgery for removal and dialysis via hemodialysis using her left arm fistual. Dr. Gonzalez aware - Patient Problems (1) Cellulitis, abdominal wall Current Visit: Yes Status: Acute Code(s): L03.311 - CELLULITIS OF ABDOMINAL WALL SNOMED Code(s): 45072892 Comment: - Improving on Vanco and Gentamycin renal dose. - Dressing chagnes. PD catheter 11/21/[address] Schneider. need to follow up with for suture removal. HD as per Dr. Gonzalez tomorrow and vanco during dialysis. - F/u final wound culture and sensitivities (2) ESRD (end stage renal disease) on dialysis Current Visit: Yes Status: Acute Code(s): N18.6 - END STAGE RENAL DISEASE; Z99.2 - DEPENDENCE ON RENAL DIALYSIS SNOMED Code(s): 387540910 Comment: - PD catheter removed - HD tomorrow 11/21/18 and vanco during dialysis for her PD catheter site cellulitis and peritonitis (3) Hypertension Current Visit: Yes Status: Acute Code(s): I10 - ESSENTIAL (PRIMARY) HYPERTENSION SNOMED Code(s): 40539942 Comment: - Continue lisinopril 30 mg daily - Cardizem 240 mg daily (4) Depression Current Visit: Yes Status: Acute Code(s): F32.9 - MAJOR DEPRESSIVE DISORDER , SINGLE EPISODE, UNSPECIFIED SNOMED Code(s): 45891708 Comment: - Celexa 20 mg daily - Amitryptline 25 mg HS (5) DVT prophylaxis Current Visit: Yes Status: Acute Code(s): CYL0694 - SNOMED Code(s): 571417632 Comment: Hep SQ
--- NOTE | 2018-11-18 16:46 | DS ---
CC: Regi Garnica NP; Dr. Felipe Schneider; Dr. Shakeel Gonzalez DISCHARGE SUMMARY: DATE OF ADMISSION: 11/16/18 DATE OF DISCHARGE: 11/18/18 PRIMARY CARE PROVIDER: Regi Garnica NP SURGEON: Dr. Felipe Schneider. SOLAR SALES SPECIALIST: Dr. Shakeel Gonzalez. FINAL DISCHARGE DIAGNOSIS: 1. Abdominal wall cellulitis at the insertion site of the peritoneal dialysis catheter. 2. Mild clinical evidence of peritonitis secondary to the peritoneal dialysis catheter. 3. End-stage renal disease, now converted to hemodialysis. 4. Hypertension. 5. Depression. HOSPITAL COURSE: The patient presented to [facility] on 11/16[facility]18 to emergency room for pa in at the peritoneal dialysis catheter site with underlying history of known polycystic kidney diseas e, converting back and forth between hemodialysis and peritoneal dialysis. She had recurrent complic ation with the peritoneal dialysis catheter site for which she had infection, required multiple antib iotic treatment and this time she was referred to the emergency room shortly after she finished oral cephalexin for her infected dialysis site catheter. She was seen, evaluated in the emergency room, a nd on admission she had a normal white count with normal lactic acid; however, she did have erythema surrounding with obvious drainage from the insertion site with some pain and tenderness on palpation on admission, but no rebound or guarding. The patient was started on vancomycin and gentamicin. She was admitted to medicine service the following day. Dr. Schneider was covering for surgery, kindly re quested to discontinue and remove the peritoneal dialysis catheter which was accomplished on 11/17/18 and her vanco and gent trough level were checked midday and they were noted to be significantly elev ated with gent trough of 5.9, vanc trough 15.3 and so no further dosing was given. Today, discussed the case with Dr. Gonzalez, who cleared the patient for discharge, will put her on dialysis schedule ea rly in the morning on an outpatient basis and I did send for vanc trough and gent trough today. Her gent was 2.7, vanc 9.7. Hence, I have refrained from giving her any further dosing for now and she w ill be getting it tomorrow during dialysis and my suspicion is that she will only require vancomycin alone. The wound culture so far came back to be negative with gram-positive cocci on one of the cult ures done on 01/15/19 at 1730 plus one gram- positive bacilli. No growth x3 cultures. Therefore, I deemed the patient stable for discharge with outpatient followup with dialysis and vancomycin via maría elena lysis at the discretion of Dr. Gonzalez, her sheep or calf grader. DISCHARGE MEDICATIONS: The patient will be discharged on the followin. Resume home Ventolin 2 puffs every 4 hours as needed. 2. Aspirin 81 mg daily. 3. FiberCon 625 four times a day. 4. Zyrtec 10 mg daily. 5. Vitamin D 2000 units daily. 6. Vitamin B12 500 mcg daily. 7. Diltiazem 240 mg daily. 8. Lexapro 10 mg at bedtime. 9. Lasix 20 mg q.a.m. 10. Atrovent nebulizer as needed. 11. Lisinopril 10 mg daily. 12. Singulair 10 mg daily. 13. Nortriptyline 25 mg at bedtime. 14. Prilosec 20 mg daily. 15. Vitamin E 1000 units daily. 16. Tylenol extra strength as needed. 17. Multivitamin with iron daily. 18. Percocet 5/325 twice a day as per home regimen, no new prescription was provided. 19. Vancomycin intravenously to be given via dialysis at the discretion of Dr. Gonzalez for a week and to follow up the final culture. DISCHARGE INSTRUCTIONS: 1. Follow up with Dr. Gonzalez as scheduled for the dialysis on outpatient basis. 2. Follow up with PCP in 1 to 2 weeks. 3. Follow up with Dr. Felipe Schneider in about 10 days for suture removal from the peritoneal catheter insertion site. [id number]/[facility] #: [id number]
== END 2018-11-18 14:50 | disposition home or self-care (01) | DRG 981 ==
LOC: ED 21:49 → MED 23:53
PROVIDERS: ADMIT Internal Medicine; ATTEND Internal Medicine
PROC: 0WPG03Z Removal of Infusion Device from Peritoneal Cavity, Open Approach (ICD-10-PCS; principal; 2018-11-17 16:45)
DX: T85.71XA Infection and inflammatory reaction due to peritoneal dialysis catheter, initial encounter (principal); N18.6 End stage renal disease; K65.8 Other peritonitis; Q61.2 Polycystic kidney, adult type; L03.311 Cellulitis of abdominal wall; I12.0 Hypertensive chronic kidney disease with stage 5 chronic kidney disease or end stage renal disease; A50.02 Early congenital syphilitic osteochondropathy; J45.909 Unspecified asthma, uncomplicated; K21.9 Gastro-esophageal reflux disease without esophagitis; E66.9 Obesity, unspecified; G43.909 Migraine, unspecified, not intractable, without status migrainosus; F32.9 Major depressive disorder, single episode, unspecified; F41.0 Panic disorder [episodic paroxysmal anxiety]; R23.2 Flushing; Y73.3 Surgical instruments, materials and gastroenterology and urology devices (including sutures) associated with adverse incidents; D69.6 Thrombocytopenia, unspecified; B96.89 Other specified bacterial agents as the cause of diseases classified elsewhere; G47.33 Obstructive sleep apnea (adult) (pediatric); Z68.36 Body mass index [BMI] 36.0-36.9, adult; Y92.9 Unspecified place or not applicable; Z86.73 Personal history of transient ischemic attack (TIA), and cerebral infarction without residual deficits; Z82.49 Family history of ischemic heart disease and other diseases of the circulatory system; Z87.891 Personal history of nicotine dependence; Z99.2 Dependence on renal dialysis; Z79.82 Long term (current) use of aspirin
CPT/HCPCS: 36415; 80048; 80053; 80170; 80202; 83605; 85025; 85060; 85610; 87040; 87070; 87073; 87205; 94640; 99284; A9270-GY; J1100; J1580; J1644; J2250; J2405; J2704; J3010; J3370

== ENCOUNTER 2019-01-13 06:54 | Day surgery (SDC) | payer MEDICARE, MEDICAID ==
[~2019-01-13 06:54] MED LIST changes: -Buffered Lidocaine 0.9% SYRIN* 5 ML/SYR SYRINGE INTRADERM ONE; +Buffered Lidocaine 1% SYRIN* 1 ML/SYRINGE INTRADERM ONE; +Dexamethasone IV* 4 MG/ML 1 ML (4 MG) IV SLOW PU ONE; -Dexamethasone TAB* 4 MG ONE; -Dexamethasone TAB* 4 MG PO ONE; -DiMENhydriNATE IV* 50 MG/ML VIAL IV PUSH PRN; -Famotidine IV* 10 MG/ML 2 ML (20 mg) ONE; -KETAMINE HCL* 50 MG/ML 10 ML VIAL ONE; +Lactated Ringers 1000 ML Bag* 1,000 ML IV SCH; -Midazolam* 1 MG/ML 5 ML VIAL (5 MG) ONE; -Morphine VIAL* 10 MG/ML 1 ML VIAL ONE; -Morphine VIAL* 4 MG/ML VIAL (1 ml vial) IV PRN; -NS 0.45% 1000 ML BAG* 1,000 ML IV SCH; +NS 0.9% 1000 ML** 1,000 ML IV SCH; -Naloxone* 0.4 MG/ML 1 ML VIAL IV PRN; -Ondansetron ODT TAB* 4 MG ONE; -Ondansetron TAB* 4 MG PO ONE; -PROCHLORPERAZINE INJ 5 MG/ML 2 ML VIAL IV PRN; -Phenylephrine INJ* 10 MG/ML 1 ML VIAL (10 MG) ONE; -Propofol* 500 MG/50 ML BTL ONE; -ceFAZolin 2 GM in NS PREMIX(*) 2 GM/100 ML BAG IVPB ONE; -fentaNYL* 50 MCG/ML 2 ML VIAL (100 MCG VIAL) IV PRN; -fentaNYL* 50 MCG/ML 2 ML VIAL (100 MCG VIAL) ONE; -oxyCODONE/Acetamin 5/325 MG* TAB PO PRN
[2019-01-13] MEDS ORDERED: ceFAZolin 2 GM in NS PREMIX(*) 2 GM/100 ML BAG IVPB ONE (07:15)
[2019-01-13] MEDS ORDERED: Buffered Lidocaine 1% SYRIN* 1 ML/SYRINGE INTRADERM ONE (07:15)
[2019-01-13] MEDS ORDERED: Dexamethasone IV* 4 MG/ML 1 ML (4 MG) ONE (07:15)
[2019-01-13] MEDS ORDERED: Famotidine IV* 10 MG/ML 2 ML (20 mg) ONE (07:15)
[2019-01-13] MEDS ORDERED: fentaNYL* 50 MCG/ML 2 ML VIAL (100 MCG VIAL) ONE (08:11)
[2019-01-13] MEDS ORDERED: Midazolam* 1 MG/ML 5 ML VIAL (5 MG) ONE (08:11)
[2019-01-13] MEDS ORDERED: Cisatracurium* 2 MG/ML MDV 5 ML ONE (08:11)
[2019-01-13] MEDS ORDERED: Propofol* 10 MG/ML 20 ML BTL ONE (08:11)
[2019-01-13] MEDS ORDERED: Lidocaine 2% PF * 5 ML VIAL ONE (08:11)
[2019-01-13] MEDS ORDERED: EPHEDrine (Pressors)* 50 MG/ML VIAL ONE ×2 (08:22→10:16)
[2019-01-13] MEDS ORDERED: fentaNYL* 50 MCG/ML 2 ML VIAL (100 MCG VIAL) IV PRN (08:42)
[2019-01-13] MEDS ORDERED: Naloxone* 0.4 MG/ML 1 ML VIAL IV PRN (08:42)
[2019-01-13] MEDS ORDERED: oxyCODONE/Acetamin 5/325 MG* TAB PO PRN (08:42)
[2019-01-13] MEDS ORDERED: HYDROcodone/ACETAMIN 5-325 MG* 1 TAB PO PRN (08:42)
[2019-01-13] MEDS ORDERED: DiMENhydriNATE IV* 50 MG/ML VIAL IV PUSH PRN (08:42)
[2019-01-13] MEDS ORDERED: Bupivacaine 0.25% W/EPI* 10 ML SDV ONE ×2 (08:52→09:55)
[2019-01-13] MEDS ORDERED: Heparin DIALYSIS ONLY(*) 1,000 UNITS/ML VIAL ONE (08:52)
[2019-01-13] MEDS ORDERED: Phenylephrine IV* 40 MCG/ML 10 ML SYRINGE ONE (09:28)
[2019-01-13] MEDS ORDERED: Glycopyrrolate IV* 0.2 MG/ML 1 ML VIAL ONE (09:59)
[2019-01-13] MEDS ORDERED: Neostigmine Methylsulfate* 3 MG/3 ML SYRINGE ONE (09:59)
[2019-01-13] MEDS ORDERED: Ondansetron INJ* 2 MG/ML VIAL ONE (10:02)
--- NOTE | 2019-01-13 10:10 | BRIEFOPN ---
Brief Operative Note - Surgery Procedures: Procedures Pre-OP Diagnoses: ESRD Post-op Diagnosis: same Procedure: Laparoscopic placement of peritoneal dialysis catheter, omentopexy Surgeon: Jessica Asst: Lilibeth Anethesia: BELEM EBL: minimal IVF: minimal Specimen: none Drains: 62cm curath
[2019-01-13] MEDS ORDERED: oxyCODONE/Acetamin 5/325 MG* TAB ONE (11:09)
[2019-01-13 12:05] VITALS: BP 115/79
--- NOTE | 2019-01-13 13:39 | OP ---
CC: Regi Garnica NP; Dr. Shakeel Gonzalez * DATE OF OPERATION: 01/13/19 - [facility] DATE OF : 75 SURGEON: Dr. Lopez. WORKCELL OPERATOR: Julia Mcelroy NP. ANESTHESIOLOGIST: Dr. Pulido. ANESTHESIA: General anesthesia. PRE-OP DIAGNOSIS: End-stage renal disease. POST-OP DIAGNOSIS: End-stage renal disease. OPERATIVE PROCEDURE: Laparoscopic placement of peritoneal dialysis catheter and omentopexy. ESTIMATED BLOOD LOSS: Minimal. FLUIDS: Minimal crystalloid fluid given. SPECIMEN: None. DRAINS: A 62-cm curled cath placed in the appropriate position. DESCRIPTION OF PROCEDURE: The patient was identified in the preoperative area. She was marked with paying attention to her belt line. She was taken to the operating room, placed on the operating table in the supine position. Preoperative antibiotics were given. Sequential compression devices were placed in bilateral lower extremities. General anesthesia was induced. The patient's abdomen was prepped and draped in standard surgical fashion. A time- out was performed. An infracostal incision was made at the left upper quadrant. This was deepened down to the anterior fascia, which was elevated and a Veress needle inserted into the abdominal cavity which was then allowed to insufflate to a pressure of 15 mmHg. The patient tolerated the insufflation well. An 8-mm Optiview trocar was then inserted, and we could see that we were on a veil of omentum, but we could see the intraabdominal contents which appeared intact. An additional 5- mm trocar was then placed in the left lower quadrant. The camera was shifted over to this side, and we could see that the Veress needle violated the omentum but nothing else and it was removed. Attention was turned towards the pelvis. The patient was placed in Trendelenburg. A 62-cm curled catheter was inserted. This was placed into the deep pelvis. There was no adhesion. It did seem that the omentopexy from initial surgery had become attenuated and not really performing its function of bringing the omentum more superiorly, so we made the decision that we perform this again. Once the catheter was in the appropriate positioning, I tunneled along the left rectus muscle with a 5-mm trocar and then pulled the tubing out through this assuring that both cuffs were out of the abdomen with the distal cuff just above the peritoneum, seated in the muscle. Next, omentopexy was performed at the right upper quadrant with an 0 Vicryl suture using an Endo Close device. Then the 5-mm trocar was removed from the left lower quadrant and we similarly closed this with an 0 Vicryl stitch. Next, we tunneled the catheter up and then back to this lower 5-mm trocar incision site and hooked it up to the dialysate, which we noted flowed easily and also emptied easily. The abdomen was allowed to collapse. The trocar was removed and all incisions were reapproximated with 4-0 Monocryl subcuticular sutures followed by Steri- Strips and sterile dressing. The patient tolerated the procedure well. It should also be noted that we looked at the previous umbilical hernia repair and it has held. This did not show any umbilical hernia. No groin hernias. The patient was woken up and transferred to the PACU. [id number]/[facility] #: [id number] JOSSELINE
== END 2019-01-13 12:24 | disposition home or self-care (01) ==
LOC: OR 06:54
PROVIDERS: ATTEND Surgery
DX: N18.6 End stage renal disease (principal); Q61.3 Polycystic kidney, unspecified; J45.909 Unspecified asthma, uncomplicated; K21.9 Gastro-esophageal reflux disease without esophagitis; F41.8 Other specified anxiety disorders; I10 Essential (primary) hypertension; G47.33 Obstructive sleep apnea (adult) (pediatric); Z87.891 Personal history of nicotine dependence; Z99.2 Dependence on renal dialysis
CPT/HCPCS: 81025; A9270-GY; J0690; J1100; J1644; J2250; J2405; J2704; J2710; J3010

== ENCOUNTER 2019-01-14 05:48 | Day surgery (SDC) | payer MEDICARE, MEDICAID ==
--- NOTE | 2019-01-13 10:57 | HP ---
HISTORY AND PHYSICAL: DATE OF ADMISSION: 01/14/19. CHIEF COMPLAINT: Malfunctioning right arm AV fistula. HISTORY OF PRESENT ILLNESS: The patient is a 43-year-old female with end-stage renal disease secondary to polycystic kidneys, that underwent a right arm arteriovenous graft located in the forearm. This has been used for dialysis for the past few months, working well; however, recently there had been at times in which the pressures are increased in the dialysis machine for this reason, although the graft is patent and still can be used for dialysis. The Duplex scan reveals high peak velocities at the arterial anastomosis and the venous anastomosis following it so that there could be neointimal hyperplasia and stenosis at the site and for this reason, the patient is being admitted for angiogram, possible angioplasty, possible stenting of the dialysis graft. PAST MEDICAL HISTORY: Remarkable for polycystic kidneys, end-stage renal disease, history of asthma, history of arthritis, depression, and anxiety. CURRENT MEDICATIONS: Are: 1. Tylenol with Codeine No.3. 2. Advair Diskus 250/50 mcg dose use as needed. 3. Baclofen 10 mg p.o. q.d. 4. Breo Ellipta 100/25 mcg inhaler. 5. Cetirizine 10 mg p.o. q.d. 6. Citalopram 10 mg p.o. q.d. 7. Furosemide 20 mg p.o. q.d. 8. Lorazepam 2 mg p.o. as needed. 9. Magnesium oxide 400 mg p.o. q.d. 10. Nortriptyline 25 mg p.o. q.d. 11. Omeprazole 40 mg p.o. q.d. 12. Zofran 4 mg p.o. q.d. FAMILY HISTORY: Essentially unremarkable. REVIEW OF SYSTEMS: As above noted, end-stage renal disease, asthma, depression , arthritis. PHYSICAL EXAMINATION GENERAL: The patient is alert and oriented, in no acute distress. LUNGS: Reveal mild wheezing on the left side, the patient states that is not uncommon. She was examined immediately after dialysis and she gets wheezing after dialysis. HEART: Regular without murmurs. ABDOMEN: Unremarkable. EXTREMITY EXAMINATION: Lower extremity is unremarkable with mild edema. Upper extremity, there is a right loop [place] graft in the forearm. There is a good thrill on auscultation and by palpation, there is augmentation as well. The brachial and radial pulses are palpable bilaterally, normal. There is normal capillary refill on both upper extremities. Findings on the ultrasound reveal high peak velocities at the anastomosis, likely stenosis and for this reason, the patient is being electively admitted for angiogram of the AV graft of the right arm with possible angioplasty, possible stenting. 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 PLAN: Angiography with possible angioplasty and stenting. The patient understands the potential complications including but not exclusive of others such as bleeding, occlusion, infection. The patient understands, agrees, and wishes to proceed. [id number]/[facility] #: [id number] MTDD
[~2019-01-14 05:48] MED LIST changes: -Dexamethasone IV* 4 MG/ML 1 ML (4 MG) IV SLOW PU ONE; -Famotidine IV* 10 MG/ML 2 ML (20 mg) IV ONE; -Lactated Ringers 1000 ML Bag* 1,000 ML IV SCH; -NS 0.9% 1000 ML** 1,000 ML IV SCH
[2019-01-14] MEDS ORDERED: Lactated Ringers 1000 ML Bag* 1,000 ML IV SCH (06:00)
[2019-01-14] MEDS ORDERED: Famotidine IV* 10 MG/ML 2 ML (20 mg) IV ONE (06:00)
[2019-01-14] MEDS ORDERED: Dexamethasone IV* 4 MG/ML 1 ML (4 MG) IV SLOW PU ONE (06:00)
[2019-01-14] MEDS ORDERED: Heparin DIALYSIS ONLY(*) 1,000 UNITS/ML VIAL ONE (06:56)
[2019-01-14] MEDS ORDERED: Heparin VIAL(*) 5000 UNITS/ML VIAL (FIVE THOUSAND) ONE (06:56)
[2019-01-14] MEDS ORDERED: Bupivacaine 0.25% W/EPI* 10 ML SDV ONE (06:57)
[2019-01-14] MEDS ORDERED: Dexamethasone IV* 4 MG/ML 1 ML (4 MG) ONE ×2 (06:58)
[2019-01-14] MEDS ORDERED: Famotidine IV* 10 MG/ML 2 ML (20 mg) ONE ×2 (06:58)
[2019-01-14] MEDS ORDERED: ceFAZolin 2 GM in NS PREMIX(*) 2 GM/100 ML BAG IVPB ONE ×2 (06:58)
[2019-01-14] MEDS ORDERED: KETAMINE HCL* 50 MG/ML 10 ML VIAL ONE ×2 (07:11)
[2019-01-14] MEDS ORDERED: fentaNYL* 50 MCG/ML 2 ML VIAL (100 MCG VIAL) ONE ×2 (07:11)
[2019-01-14] MEDS ORDERED: Midazolam* 1 MG/ML 5 ML VIAL (5 MG) ONE ×2 (07:11)
[2019-01-14] MEDS ORDERED: fentaNYL* 50 MCG/ML 2 ML VIAL (100 MCG VIAL) IV PRN (07:23)
[2019-01-14] MEDS ORDERED: Naloxone* 0.4 MG/ML 1 ML VIAL IV PRN (07:23)
[2019-01-14] MEDS ORDERED: DiMENhydriNATE IV* 50 MG/ML VIAL IV PUSH PRN (07:23)
[2019-01-14] MEDS ORDERED: oxyCODONE/Acetamin 5/325 MG* TAB PO PRN (07:23)
[2019-01-14] MEDS ORDERED: HYDROcodone/ACETAMIN 5-325 MG* 1 TAB PO PRN (07:23)
[2019-01-14] MEDS ORDERED: Propofol* 10 MG/ML 20 ML BTL ONE ×2 (07:38)
[2019-01-14] MEDS ORDERED: Lidocaine 2% PF * 5 ML VIAL ONE ×2 (07:39)
[2019-01-14] MEDS ORDERED: Lidocaine 1% INJ* 10 MG/ML 30 ML SDV ONE ×2 (07:53)
[2019-01-14] MEDS ORDERED: Iohexol 180 (CONTRAST) 10 ML SDV IV ONE ×3 (08:01→08:30)
[2019-01-14] MEDS ORDERED: Ondansetron INJ* 2 MG/ML VIAL ONE ×2 (08:49)
[2019-01-14 09:34] VITALS: BP 145/79
--- NOTE | 2019-01-14 11:05 | OP ---
DATE OF OPERATION: 01/14/19 - [facility] DATE OF : 75 SURGEON: Abraham Barajas MD. ANESTHESIA: Local plus MAC. PRE-OP DIAGNOSIS: Right dialysis brachial graft stenosis. POST-OP DIAGNOSIS: Right dialysis brachial graft stenosis, both arterial and venous site and brachial artery. OPERATIVE PROCEDURE: 1. Right arm brachial graft angiogram. 2. Percutaneous balloon angioplasty of the arterial site, venous site, and brachial artery. ESTIMATED BLOOD LOSS: Approximately 20 cc. INDICATIONS: The patient is a 43-year-old female that is undergoing hemodialysis via right arm brachial graft. During dialysis, they noted that the patient was having inadequate runs, and a Doppler of the brachial graft revealed high peak velocities at the arterial and venous anastomosis suggesting stenosis at the anastomoses. For this reason, the patient is brought in for intraoperative angiogram. The patient had undergone in the last 24 hours a placement of peritoneal dialysis catheter that appears to be in good position. Examination prior to surgery revealed that the abdomen is soft, nontender. No distention. Normal bowel sounds, and for this reason, we proceeded with a balloon angioplasty. DESCRIPTION OF THE PROCEDURE: The patient was taken to the procedure room. She was placed in the supine position. She received preoperative antibiotics. Her right arm was prepped and draped in the usual sterile fashion. Under sedation, lidocaine 1% was used to infiltrate in the most distal part of the loop of the graft. We proceeded to introduce a 16-gauge Angiocath directed towards the venous side of the anastomosis. Once this was inside, brisk bleeding was noted. We proceeded to advance a wire over the 16-gauge Angiocath , and after this, the Angiocath was removed, then replaced by a 6 Frisian introducer sheath that was advanced over the wire, and after this was completed , we then proceeded to perform an angiogram towards the venous side of the anastomosis that revealed mild stenosis at the venous anastomosis site. Marking of the location was done. We then proceeded to advance an 0.035 guidewire which was advanced into the basilic vein. After this was done, we then proceeded to advance a 6 mm, 20 mm long Bay balloon angioplasty catheter. The selected location was then ballooned up to its nominal pressure specifically 10 to 12 pressure, holding pressure for 30 seconds. A repeat angiogram still revealed mild stenosis. This was ballooned again with the same 6-mm balloon. Incidentally, the size of the graft placed had a 6-mm diameter. After this was completed, the angiogram was performed with excellent flow into the different branches. After this was done, we then redirected the catheter towards the arterial side from the same puncture and the 0.035 guidewire would tend to go into the distal brachial artery. We then switched the 0.035 guidewire to an 0.018 guidewire and this was able to advance cephalad into the upper brachial artery. An angiogram of the arterial side revealed stenosis at the arterial side. Incidentally, the size of the graft at the arterial site was originally 4 mm. There was a [id number]-[id number] stenosis at the arterial side and a mild stenosis in the brachial artery. Balloon angioplasties of the arterial anastomosis was done x3 and this corrected the stenosis, confirmed by angiography. The brachial artery was also balloon dilated with the same 6 mm, 2 cm long balloon angioplasty Bay. At the end of the procedure, an angiogram was performed, which revealed excellent flow into brachial artery and the stenosis significantly corrected at the arterial side. At the end of the procedure, we flushed the catheters with heparinized saline. There was excellent thrill at the venous and arterial side of the anastomosis, and after this was done, we placed a [id number]-skexp suturing around the entrance site, pulled the sheath back, and tied over the opening. Steri-Strips were applied. The procedure was well tolerated. The patient had excellent palpable pulses at the radial and ulnar arteries, excellent capillary refill on the arm. No pain, no expanding hematomas. After this, the patient was taken in good condition to recovery room. [id number]/[facility] #: [id number] JOSSELINE
== END 2019-01-14 09:37 | disposition home or self-care (01) ==
LOC: OR 05:48
PROVIDERS: ATTEND Surgery
DX: T82.858A Stenosis of other vascular prosthetic devices, implants and grafts, initial encounter (principal); N18.6 End stage renal disease; Z99.2 Dependence on renal dialysis; Q61.3 Polycystic kidney, unspecified; J45.909 Unspecified asthma, uncomplicated; F41.8 Other specified anxiety disorders
CPT/HCPCS: 76000; C1725; J0690; J1100; J1644; J2250; J2405; J2704; J3010

== ENCOUNTER → 2019-06-08 07:05 | Day surgery (SDC) | payer MEDICARE, MEDICAID ==
[~2019-06-08 07:05] MED LIST changes: +Alteplase 10 mg/10 mL (for intra-op IR use only, onetime) ONE; -Buffered Lidocaine 1% SYRIN* 1 ML/SYRINGE INTRADERM ONE; +HYDROcodone/ACETAMIN 5-325 MG* 1 TAB PO ONE; +Heparin 2 UNITS/ML IVPREMIX* 3,000 UNIT/1,500 ML BAG IV ONE; +Heparin(*) 1000 UNIT/ML 10 ML VIAL CATH LAB IV ONE; +Iodixanol 320 (CONTRAST) 100 ML SDV ONE; +LORazepam TAB(*) 1 MG ONE; +Lidocaine 1% INJ* 10 MG/ML 30 ML SDV ONE; +Midazolam* 1 MG/ML 5 ML VIAL (5 MG) ONE; +fentaNYL* 50 MCG/ML 2 ML VIAL (100 MCG VIAL) ONE
[2019-06-08 15:40] VITALS: BP 114/74
--- NOTE | 2019-06-08 15:47 | PN ---
Progress Note - Progress Note Date of Service: 06/08/19 SOAP: Subjective: 3/10 at sheath sites, but denies pain overall of the right forearm. No other subjective complaints of the RUE Denies SOB. No CP. Objective: Selected Entries 06/08/19 06/08/19 15:32 15:37 Heart Rate 62 Respiratory 20 Rate Blood Pressure 114/74 (mmHg) Blood Pressure 80 Mean O2 Sat by Pulse 96 Oximetry NAD, AAO x 3 Right forearm graft site is soft Minimally tender when palpating over sheath sites No bleeding Sensation intact to light touch at distribution of right R/M/U nerves No pain with Flex/Ext of right fingers and wrist Architecture Analyst strength is 5/5 2+ palpable pulse at right radial artery +pulsatile flow palpated through graft Assessment: 43 YOF status post graft pharmacologic and mechanical graft declot and angioplasty. There is some tenderness to palpation over the sheath sites, but no signs of compartment syndrome. Plan: 1. Attempt dialysis through graft at next session. 2. Sutures must be removed in 5-7 days. If this cannot be done at the dialysis unit the patient must return to IR for suture removal. (The patient and her were advised of this).
== END | disposition home or self-care (01) ==
LOC: CHICATH 07:05
PROVIDERS: ATTEND Radiology Diagnostic Radiology
DX: T82.868A Thrombosis due to vascular prosthetic devices, implants and grafts, initial encounter (principal); N18.6 End stage renal disease; Z99.2 Dependence on renal dialysis; J45.909 Unspecified asthma, uncomplicated; K21.9 Gastro-esophageal reflux disease without esophagitis; Z87.891 Personal history of nicotine dependence; D75.1 Secondary polycythemia
CPT/HCPCS: 36901; 36902; 36905; 76937; 85347; 99156; 99157; A9270-GY; C1725; C1769; C1887; C1894; J1644; J2250; J2997; J3010

== ENCOUNTER 2019-07-27 12:27 | Emergency (ER) | payer MEDICARE, MEDICAID ==
[2019-07-27 12:42] VITALS: BP 144/101
[2019-07-27 13:00] LABS: ABS Basophils 0.1 10^3/ul (0-0.2); ABS Eosinophils 0.1 10^3/ul (0-0.6); ABS Monocytes 1.1 10^3/ul (0-0.8); ABS Neutrophils 8.5 10^3/ul (1.5-7.7); Hematocrit 55 % (35-47); Hemoglobin 18.8 g/dL (12.0-16.0); Lymphocyte % 9.1 %; Mean Corpuscular HGB Conc 34 g/dL (31-36); Mean Corpuscular Hemoglobin 34 pg (27-31); Mean Corpuscular Volume 100 fL (80-97); Mean Platelet Volume 9.3 fL (7.4-10.4); Nucleated Red Blood Cells % 0.2; Platelet Count 126 10^3/uL (150-450); Red Blood Count 5.49 10^6 /uL (3.70-4.87); Red Cell Distribution Width 16 % (10-15); White Blood Count 10.7 10^3/uL (3.5-10.8)
[2019-07-27 13:24] LABS: Albumin/Globulin Ratio 1.5 (1-3); BUN/Creatinine Ratio 5.2 (8-20); Calcium 9.2 mg/dL (8.6-10.3); EGFR African American 6.2 (>60); EGFR Non-African American 5.2 (>60); Globulin 2.7 g/dL (2-4); Potassium 4.6 mmol/L (3.5-5.0); Total Bilirubin 0.8 mg/dL (0.2-1.0); Total Protein 6.7 g/dL (6.4-8.9)
--- OUTSIDE RECORDS SUMMARY | 2019-07-27 13:26 | XMS REPORT | Continuity of Care Document ---
:1975 External Reference #:[id number] Author Name Abraham Barajas Address [address] [facility], [place] [address] Care Team Providers Name Role Phone Shakeel Gonzalez M.D. - Nephrology Care Team Information Cotton Grader Regi Garnica NP - Family Care Team Information Cotton Grader [phone] Problems Active Problems Provider Date Chronic kidney disease stage 4 Abraham Barajas Onset: 02/26/2018 End stage renal failure on dialysis Abraham Barajas Onset: 01/12/2019 Stenosis of other vascular prosthetic devices, Abraham Barajas Onset: 01/12 implants and grafts, initial encounter Body mass index 30+ - obesity Abraham Barajas Onset: 06/14/2019 Social History Type Date Description Comments Sex Unknown Tobacco Use Start: Unknown End: Unknown Patient is a former smoker Smoking Status Reviewed: 01/26/19 Patient is a former smoker Allergies, Adverse Reactions, Alerts Active Allergies Reaction Severity Comments Date Morphine Difficulty breathing 01/12/2019 Inactive Allergies NKDA 02/26/2018 Medications Active Medications SIG Qnty Indications Ordering Provider Date Zofran 1 tab by mouth 30tabs N18.4 Abraham Barajas 03/12/2018 4mg Tablets every 6 hours R11.2 Acetaminophen-Codeine #3 take 1 tabs by 20tabs Abraham Barajas 2017 300-30mg mouth every 6 hours Tablets as needed for pain Heparin Sodium (Porcine) Instill 1 ML Per 1 Unknown 1000Unit/ML Liter Of Dianeal Solution Solution as Needed For Peritonitis And Or Slow Drain Flow as Needed Mupirocin Apply Once Daily To Unknown 2% Ointment External PD Exit Site Montelukast Sodium Take One Tablet By Unknown 10mg Tablets Mouth Every Day Simvastatin Take One Tablet By Unknown 20mg Tablets Mouth Every Day Before Bed Ropinirole HCL Take One Tablet By Unknown 0.25mg Tablets Mouth AT Bedtime Lisinopril Take One Tablet By Unknown 40mg Tablets Mouth Every Day Cartia XT Take One Capsule By Unknown 240mg Caps ER 24HR Mouth Every Day Breo Ellipta Inhale One puff By Unknown 100-25mcg/Inh Aerosol Mouth Every Day Magnesium Oxide Take One Tablet By Unknown 400(241.3Mg) mg Tablets Mouth Twice A Day Lorazepam po prn Shakeel Gonzalez, 2mg Tablets M.D. Vitamin B12 Unknown 5000mcg Tablets ER Oxycodone-Acetaminophen 1-2 tablets by 20tabs Abraham Barajas 5-325mg Tablets mouth every 6 hours as needed for pain Nortriptyline HCL Regi Garnica, 25mg Capsules CAR SUPPLIER Cetirizine HCL Prashanth Davidson PA 10mg Tablets Omeprazole Take One Capsule By Unknown 40mg Capsules DR Mouth Every Day Mapap Arthritis Pain Take One Tablet By Unknown 650mg Tablets ER Mouth Three Times A Day For Arthritis Pain Furosemide Prashanth Davidson PA 20mg Tablets Ipratropium [place]/Albuterol Regi Garnica, Sulfate CAR SUPPLIER 0.5-2.5(3)mg/3ML Solution Escitalopram Oxalate Take One Tablet By Unknown 10mg Tablets Mouth Every Day Baclofen Take One Tablet By Unknown 10mg Tablets Mouth Twice A Day as Needed For Muscle Spasms Immunizations CPT Code Status Date Vaccine Lot # [id number] Given 08/03/2018 Pneumococcal Vaccine 40276 Given 08/03/2018 Influenza Vaccine 69367-854-37 23962 Refused 02/26/2018 Influenza Vaccine 43868-467-46 Vital Signs Date Vital Result Comment 07/08/2019 9:44am Height 67 inches 5'7" Weight 230.00 lb BP Systolic 133 mmHg BP Diastolic 86 mmHg BMI (Body Mass Index) 36.0 kg/m2 Heart Rate 76 /min Respiratory Rate 18 /min Pain Level 0 out of 10 06/30/2019 10:15am Height 67 inches 5'7" Weight 230.00 lb BP Systolic 147 mmHg BP Diastolic 101 mmHg BMI (Body Mass Index) 36.0 kg/m2 Heart Rate 96 /min Respiratory Rate 18 /min Pain Level 3 out of 10 Results Description No Information Available Procedures Date Code Description Status 06/25/2019 61562 Dialysis Circuit, Intro [place]/Cath W/ Diagnostic Completed Angiography 06/25/2019 95660 Thrombectomy Av Fistula W/Out Revision; Auto/Nonauto Completed Dialysis GFT 06/25/2019 27291 Anastomosis Arteriovenous Direct Any Site Completed 06/18/2019 13857 Dialysis Circuit W/ Transcatheter Placement Intravascular Completed Stent(S 06/18/2019 24663 Revision W/Thrombectomy Av Fistula Auto/Nonauto Dialysis Completed Graft 06/14/2019 77826 Duplex Scan Extremity Veins, Unilateral Or Limited Study Completed 01/14/2019 95134 Dialysis Circuit Perc Translum Mech Thrombectomy W/ Completed Balloon Angio Medical Devices Description No Information Available Encounters Type Date Location Provider Dx Diagnosis Office Visit 06/14/2019 [facility] Abraham Barajas T82.858A Stenosis of other 1:00p vascular prosth dev/grft, init L76.32 Postproc hematoma of skin, subcu following other procedure N18.4 Chronic kidney disease, stage 4 (severe) Z99.2 Dependence on renal dialysis Z68.36 Body mass index (BMI) 36.0-36.9, adult Office Visit 01/12/2019 11:[facility] Abraham Barajas T82.858A Stenosis of other vascular prosth dev/grft, init N18.4 Chronic kidney disease, stage 4 (severe) Z99.2 Dependence on renal dialysis Z01.818 Encounter for other preprocedural examination Assessments Date Code Description Provider 07/08/2019 Z68.36 Body mass index (BMI) 36.0-36.9, adult Abraham Barajas 06/30/2019 T82.858A Stenosis of other vascular prosthetic devices, Abraham Barajas implants and 06/30/2019 Z68.36 Body mass index (BMI) 36.0-36.9, adult Abraham Barajas 06/25/2019 T82.858A Stenosis of other vascular prosthetic devices, Barajas, Abraham implants and 06/25/2019 I77.1 Stricture of artery Barajas, Abraham 06/25/2019 Z68.36 Body mass index (BMI) 36.0-36.9, adult Barajas, Abraham 06/25/2019 Y83.2 Anastomos,bypass or grft cause abn react/compl, Barajas, Abraham w/o misadvnt 06/25/2019 Q61.2 Polycystic kidney, adult type Barajas, Abraham 06/25/2019 N18.4 Chronic kidney disease, stage 4 (severe) Barajas, Abraham 06/25/2019 Z99.2 Dependence on renal dialysis Barajas, Abraham 06/21/2019 T82.858A Stenosis of other vascular prosthetic devices, Barajas, Abraham implants and 06/21/2019 Z99.2 Dependence on renal dialysis Barajas, Abraham 06/21/2019 Q61.2 Polycystic kidney, adult type Barajas, Abraham 06/21/2019 N18.4 Chronic kidney disease, stage 4 (severe) Barajas, Abraham 06/21/2019 Z68.36 Body mass index (BMI) 36.0-36.9, adult Barajas, Abraham 06/18/2019 T82.858A Stenosis of other vascular prosthetic devices, Barajas, Abraham implants and 06/18/2019 Q61.2 Polycystic kidney, adult type Barajas, Abraham 06/18/2019 N18.4 Chronic kidney disease, stage 4 (severe) Barajas, Abraham 06/18/2019 Z68.36 Body mass index (BMI) 36.0-36.9, adult Barajas, Abraham 06/18/2019 Z99.2 Dependence on renal dialysis Barajas, Abraham 06/14/2019 T82.858A Stenosis of other vascular prosthetic devices, Barajas, Abraham implants and 06/14/2019 L76.32 Postprocedural hematoma of skin and Barajas, Abraham subcutaneous tissue following other procedure 06/14/2019 N18.4 Chronic kidney disease, stage 4 (severe) Barajas, Abraham 06/14/2019 Z99.2 Dependence on renal dialysis Barajas, Abraham 06/14/2019 Z68.36 Body mass index (BMI) 36.0-36.9, adult [place] Barajasmo 01/22/2019 T82.858A Stenosis of other vascular prosthetic devices, Jessa Meraz, SILK TRIMMER implants and 01/22/2019 N18.4 Chronic kidney disease, stage 4 (severe) Jessa Meraz, SILK TRIMMER 01/22/2019 Z99.2 Dependence on renal dialysis MELECIO ChaudharyP 01/14/2019 T82.858A Stenosis of other vascular prosthetic devices, Barajas, Abraham implants and 01/14/2019 N18.4 Chronic kidney disease, stage 4 (severe) Barajas, Abraham 01/14/2019 Z99.2 Dependence on renal dialysis BarajasCasperAbraham 01/12/2019 T82.858A Stenosis of other vascular prosthetic devices, Barajas, Abraham implants and 01/12/2019 N18.4 Chronic kidney disease, stage 4 (severe) Barajas, Abraham 01/12/2019 Z99.2 Dependence on renal dialysis Barajas, Abraham 01/12/2019 Z01.818 Encounter for other preprocedural examination Abraham aBrajas Plan of Treatment Future Appointment(s):08/19/2019 11:00 am - Abraham Barajas at [facility] Functional Status Description No Information Available Mental Status Description No Information Available Referrals Description No Information Available
--- OUTSIDE RECORDS SUMMARY | 2019-07-27 13:26 | XMS REPORT | Continuity of Care Document ---
:1975 External Reference #:[id number] Author Name Abraham Barajas (transmitted by agent of provider Dariela Flores) Address [address] [place] [address] Care Team Providers Name Role Phone Shakeel Gonzalez M.D. - Nephrology Care Team Information [employer] Regi Garnica NP - Family Care Team Information [employer] [phone] Problems Active Problems Provider Date Chronic kidney [...] pain Nortriptyline HCL Regi Garnica, 25mg Capsules MINERAL ECONOMIST Cetirizine HCL Prashanth Davidson PA 10mg Tablets Omeprazole Take One Capsule By Unknown 40mg Capsules DR Mouth Every Day Mapap Arthritis Pain Take One Tablet By Unknown 650mg Tablets ER Mouth Three Times A Day For Arthritis Pain Furosemide Prashanth Davidson PA 20mg Tablets Ipratropium [place]/Albuterol Regi Garnica, Sulfate MINERAL ECONOMIST 0.5-2.5(3)mg/3ML Solution Escitalopram Oxalate Take One Tablet By Unknown 10mg Tablets Mouth Every Day Baclofen Take One Tablet By Unknown 10mg Tablets Mouth Twice A Day as Needed For Muscle Spasms Immunizations CPT Code Status Date Vaccine Lot # [id number] Given 08/03/2018 Pneumococcal Vaccine 91099 Given 08/03/2018 Influenza Vaccine [id number] [id number] Refused 02/26/2018 Influenza Vaccine [id number] Vital Signs Date Vital Result Comment 07/08/2019 [...] Available Procedures Date Code Description Status 06/25/2019 31863 Dialysis Circuit, Intro [place]/Cath W/ Diagnostic Completed Angiography 06/25/2019 57569 Thrombectomy Av Fistula W/Out Revision; Auto/Nonauto Completed Dialysis GFT 06/25/2019 60963 Anastomosis Arteriovenous Direct Any Site Completed 06/18/2019 39268 Dialysis Circuit W/ Transcatheter Placement Intravascular Completed Stent(S 06/18/2019 92634 Revision W/Thrombectomy Av Fistula Auto/Nonauto Dialysis Completed Graft 06/14/2019 96041 Duplex Scan Extremity Veins, Unilateral Or Limited Study Completed 01/14/2019 81710 Dialysis Circuit Perc Translum Mech Thrombectomy W/ [...] mass index (BMI) 36.0-36.9, adult Barajas, Abraham 01/22/2019 T82.858A Stenosis of other vascular prosthetic devices, Jessa Meraz, RAG ROOM SUPERVISOR implants and 01/22/2019 N18.4 Chronic kidney disease, stage 4 (severe) Jessa Meraz RAG ROOM SUPERVISOR 01/22/2019 Z99.2 Dependence on renal dialysis Jessa Meraz [place] 01/14/2019 T82.858A Stenosis of other vascular prosthetic devices, Barajas, Abraham implants and 01/14/2019 N18.4 Chronic kidney disease, stage 4 (severe) Barajas, Abraham 01/14/2019 Z99.2 Dependence on renal dialysis [place] 01/12/2019 T82.858A Stenosis of other vascular prosthetic devices, Barajas, Abraham implants and 01/12/2019 N18.4 Chronic kidney disease, stage 4 (severe) Barajas, Abraham 01/12/2019 Z99.2 Dependence on renal dialysis Barajas, Abraham 01/12/2019 Z01.818 Encounter for other preprocedural examination Abraham Barajas Plan of Treatment No Information Available Functional Status Description No Information Available Mental Status Description No Information Available Referrals Description No Information Available
--- OUTSIDE RECORDS SUMMARY | 2019-07-27 13:26 | XMS REPORT | Continuity of Care Document ---
:1975 External Reference #:[id number] Author Name Abraham Barajas Address [address] [facility], [place] [address] Care Team Providers Name Role Phone Shakeel Gonzalez M.D. - Nephrology Care Team Information Expediter Clerk [phone] Regi Garnica NP - Family Care Team Information Expediter Clerk [phone] Problems Active Problems Provider Date Chronic kidney [...] pain Nortriptyline HCL Regi Garnica, 25mg Capsules [employer] Cetirizine HCL Prashanth Davidson PA 10mg Tablets Omeprazole Take One Capsule By Unknown 40mg Capsules DR Mouth Every Day Mapap Arthritis Pain Take One Tablet By Unknown 650mg Tablets ER Mouth Three Times A Day For Arthritis Pain Furosemide Prashanth Davidson PA 20mg Tablets Ipratropium [place]/Albuterol Regi Garnica, Sulfate [employer] 0.5-2.5(3)mg/3ML Solution Escitalopram Oxalate Take One Tablet By Unknown 10mg Tablets Mouth Every Day Baclofen Take One Tablet By Unknown 10mg Tablets Mouth Twice A Day as Needed For Muscle Spasms Immunizations CPT Code Status Date Vaccine Lot # [id number] Given 08/03/2018 Pneumococcal Vaccine 37709 Given 08/03/2018 Influenza Vaccine [id number] Refused 02/26/2018 Influenza Vaccine [id number] Vital Signs Date Vital Result Comment 06/30/2019 10:15am Height 67 inches 5'7" Weight 230.00 lb BP Systolic 147 mmHg BP Diastolic 101 mmHg BMI (Body Mass Index) 36.0 kg/m2 Heart Rate 96 /min Respiratory Rate 18 /min Pain Level 3 out of 10 06/21/2019 11:46am Height 67 inches 5'7" Weight 230.00 lb BP Systolic 161 mmHg BP Diastolic 86 mmHg BMI (Body Mass Index) 36.0 kg/m2 Heart Rate 76 /min Respiratory Rate 18 /min Pain Level 8 out of 10 Results Description No Information Available Procedures Date Code Description Status 06/25/2019 50606 Dialysis Circuit, Intro [place]/Cath W/ Diagnostic Completed Angiography 06/25/2019 06297 Thrombectomy Av Fistula W/Out Revision; Auto/Nonauto Completed Dialysis GFT 06/25/2019 89523 Anastomosis Arteriovenous Direct Any Site Completed 06/18/2019 68348 Dialysis Circuit W/ Transcatheter Placement Intravascular Completed Stent(S 06/18/2019 48043 Revision W/Thrombectomy Av Fistula Auto/Nonauto Dialysis Completed Graft 06/14/2019 43111 Duplex Scan Extremity Veins, Unilateral Or Limited Study Completed 01/14/2019 60807 Dialysis Circuit Perc Translum Mech Thrombectomy W/ [...] preprocedural examination Assessments Date Code Description Provider 06/30/2019 T82.858A Stenosis of other vascular prosthetic devices, Abraham Barajas implants and 06/30/2019 Z68.36 Body mass index (BMI) 36.0-36.9, adult Abraham Barajas 06/25/2019 T82.858A Stenosis of other vascular prosthetic devices, Abraham Barajas implants and 06/25/2019 I77.1 Stricture of artery Abraham Barajas 06/25/2019 Z68.36 Body mass index (BMI) 36.0-36.9, [...] of other vascular prosthetic devices, Jessa Meraz, CONY implants and 01/22/2019 N18.4 Chronic kidney disease, stage 4 (severe) Jessa MerazCONY 01/22/2019 Z99.2 Dependence on renal dialysis Jessa MerazCONY 01/14/2019 T82.858A Stenosis of other vascular prosthetic devices, Barajas, Abraham implants and 01/14/2019 N18.4 Chronic kidney disease, stage 4 (severe) Barajas, Abraham 01/14/2019 Z99.2 Dependence on renal dialysis Barajas, Abraham 01/12/2019 T82.858A Stenosis of other vascular prosthetic devices, Barajas, Abraham implants and 01/12/2019 N18.4 Chronic kidney disease, stage 4 (severe) Barajas, Abraham 01/12/2019 Z99.2 Dependence on renal dialysis Barajas, Abraham 01/12/2019 Z01.818 Encounter for other preprocedural examination Abraham Barajas Plan of Treatment Future Appointment(s):07/08/2019 9:45 am - Abraham [facility]ajas at [facility] Functional Status Description No Information Available Mental Status Description No Information Available Referrals Description No Information Available
[2019-07-27 13:41] LABS: Urine Bacteria Absent (Absent); Urine Red Blood Cell 3+(>10/hpf) (Absent); Urine White Blood Cell 3+(>20/hpf) (Absent)
[2019-07-27 13:44] LABS: Urine Appearance Turbid; Urine Color Red; Urine Specific Gravity 1.013 (1.010-1.030)
== END 2019-07-27 14:01 | disposition left against medical advice (07) ==
LOC: ED 12:27
DX: Z53.21 Procedure and treatment not carried out due to patient leaving prior to being seen by health care provider (principal); R30.0 Dysuria; R31.9 Hematuria, unspecified; R11.10 Vomiting, unspecified; Z88.5 Allergy status to narcotic agent
CPT/HCPCS: 36415; 80053; 81003; 85025; 87077; 87086; 87186; 99281

== ENCOUNTER 2019-08-02 16:34 | Inpatient (IN) | payer MEDICARE, MEDICAID ==
--- OUTSIDE RECORDS SUMMARY | 2019-08-02 16:58 | XMS REPORT | Continuity of Care Document ---
:1975 External Reference #:[id number] Author Name Regi Garnica RN MS SIDEROGRAPHIST Address [address] [place] [address] Problems Active Problems Provider Date Mixed hyperlipidemia Eli Oliveira MD Onset: 05/23/2015 Essential hypertension Regi Garnica RN MS SIDEROGRAPHIST Onset: 09/07/2015 Chronic kidney disease Prashanth Davidson PA Onset: 10/15/2016 Chronic obstructive lung disease Prashanth Davidson PA Onset: 10/15/2016 Smoker Prashanth Davidson PA Onset: 10/15/2016 Polycystic kidney disease, adult type Prashanth Davidson PA Onset: 06/08/2018 Social History Type Date Description Comments Sex Unknown Cigarette Use Quit - Age 40 Tobacco Use Start: Unknown End: Patient is a former smoker Quit at age 40. 20yr Unknown at 0.5pk/day Smoking Status Reviewed: 07/07/19 Patient is a former smoker Quit at age 40. 20yr at 0.5pk/day Allergies, Adverse Reactions, Alerts Description No Known Drug Allergies Medications Active Medications SIG Qnty Indications Ordering Provider Date Tramadol HCL 1 tab by mouth 40tabs Regi Garnica 07/28/2019 50mg Tablets every 6 hours as HANSEL Tang MS SIDEROGRAPHIST needed for pain, max dose 4 daily Escitalopram Oxalate 1 by mouth every 90tabs F41.1 Regi Garnica 2018 20mg day C, RN MS SIDEROGRAPHIST Tablets F33.9 Lorazepam take 1-2 tablets by 30tabs F41.1 Regi Garnica, 07/07/2019 1mg Tablets mouth Once a day as RN MS SIDEROGRAPHIST needed for anxiety Proair HFA 2 p three times a 25.5gm J45.40 Regi Garnica, 08/20/2018 108(90Base) day as needed RN MS SIDEROGRAPHIST mcg/Act Aerosol J44.9 Breo Ellipta Inhale One puff 60units J45.40 [facility] 06/08/2018 100-25mcg/Inh By Mouth Every Zofia, Aerosol Day J44.9 Nystatin ~5ml by mouth 4 500ml B37.0 [facility] 06/08/2018 342320Aias/ML times daily for MMD Suspension 3weeks. retain in mouth as long as possible. continue treatment 3days after all s/s resolved Fluticasone Propionate [place] Two Sprays In 16units [facility] 03/31 Each Nostril Every M, 50mcg/Act Suspension Day Montelukast Sodium Take One Tablet By 90tabs J45.20 Regi Garnica 2017 10mg Mouth Every Day CHANSEL MS SIDEROGRAPHIST Tablets J30.9 Simvastatin take one tablet 30tabs E78.2 [facility] 03/10/2018 20mg Tablets by mouth every M, day before bed Nortriptyline HCL Take One Capsule 30caps F33.9 [facility] 2017 25mg By Mouth AT MD Zofia Capsules Bedtime Cartia XT 1 po q day I10 [facility] 03/10/2018 120mg Caps ER 24HR MD Zofia Clonidine HCL 1 by mouth tid 60tabs I10 [facility] 03/10/2018 0.1mg Tablets MD Zofia Lisinopril 1 by mouth every I10 [facility] 03/10/2018 40mg Tablets morning MD Zofia Ondansetron HCL one tab as needed 30tabs R11.10 Regi Garnica, 2017 4mg Tablets every 8 hours for RN MS SIDEROGRAPHIST nausea KP Aspirin 1 by mouth every 30tabs Regi Garnica, 07/24/[address] day Per Neuro RN MS SIDEROGRAPHIST Magnesium Oxide Take One Tablet 180tabs N18.4 [facility] 07/24/2017 400(241.3mg) By Mouth Twice A MD Zofia mg Tablets Day N18.5 Baclofen Take One Tablet By 60tabs G89.4 Regi Garnica, 05/23/2017 10mg Tablets Mouth Twice A Day RN MS SIDEROGRAPHIST as Needed For Muscle Spasms Flintstones Plus Iron 1 tablet twice N18.5 Eli Oliveira 03/03/2017 daily MD Zofia Chewtabs Albuterol Sulfate 1 vial in neb. q4hr 750ml J44.9 Regi Garnica, 01/02 as needed RN MS SIDEROGRAPHIST (2.5mg/3ML) 0.083% Nebulizer Cetirizine HCL Take One Tablet By 30tabs J45.40 Eli Oliveira 2016 10mg Tablets Mouth Every Day For MD Zofia Allergy Symptoms J30.9 Ipratropium Inhale The 360units J45.40 Regi Garnica 09/11/2016 Solgoh[place]ia/Albuterol Sulfate Contents Of One C, RN MS SIDEROGRAPHIST Vial Via 0.5-2.5(3)mg/3ML Solution Nebulizer Four Times A Day For 7 Days J44.9 Oxycodone-Acetaminophen 1 tablet by 60tabs R51 Regi Garnica 10/09/2015 5-325mg Tablets mouth twice a C, RN MS SIDEROGRAPHIST day as needed for pain G89.4 Furosemide Take One Tablet By 90tabs N18.5 Eli Oliveira 10/09/2015 20mg Tablets Mouth Every Day MD Zofia Meclizine HCL 1/2-1 by mouth 30tabs 386.11 Regi Garnica, 02/15/2015 25mg three times a day RN MS SIDEROGRAPHIST Tablets as needed Omeprazole Take One Capsule By 30caps K21.9 Regi Garnica, 04/16/2012 40mg Capsules Mouth Every Day RN MS SIDEROGRAPHIST R10.13 Medications Administered in Office Medication SIG Qnty Indications Ordering Provider Date PPD Regi Garnica RN 01/14/2012 Injection MS SIDEROGRAPHIST PPD Nurses Schedule Opal 11/17/2009 Injection PPD Nurses Schedule Opal 03/16/2007 Injection PPD Kimani Hernandez MD 03/16/2007 Injection PPD Kimani Hernandez MD 11/14/2004 Injection Torodol Injection 15 MG Dose Kimani Hernandez MD 03/26/2001 Injection Torodol Injection 15 MG Dose Pia Aragon M.D. 03/25/2001 Injection Solumedrol DavidyprenDesi Franklin RN 03/02/2001 Sodium Succinate Up To 40 MG A.N.P. Injection Immunizations CPT Code Status Date Vaccine Reaction Lot # [id number] Given 08/13/2018 MMR Virus Immunization [id number] Given 04/22/2018 Prevnar [address] OBANDO Conjugate Vaccine OFFICE 41785 Given 01/14/2012 Tdap (Adacel) Ages 7 And [id number] Above Only 24765 Given 09/14/2007 Afluria Or Fluvirin Flu Vac Intramuscular 93148 Given 09/14/2007 Afluria Or Fluvirin Flu Vac [id number] Intramuscular 92455 Given 10/07/2006 Afluria Or Fluvirin Flu Vac [id number], Intramuscular 71462 Given 08/21/2005 Afluria Or Fluvirin Flu Vac [id number] Intramuscular 85760 Given 10/03/2004 Afluria Or Fluvirin Flu Vac Intramuscular 70273 Refused 07/07/2019 Influenza Vac, Quadrivalent, Split, 0.5mL Dosage, Im Use 79079 Refused 11/08/2016 Influenza Vac, Quadrivalent, Split, 0.5mL Dosage, Im Use Vital Signs Date Vital Result Comment 07/07/2019 2:50pm Weight 238.00 lb Heart Rate 87 /min BP Systolic 132 mmHg BP Diastolic 79 mmHg Height 67 inches 5'7" BMI (Body Mass Index) 37.3 kg/m2 08/13/2018 11:04am Weight 229.00 lb Heart Rate 98 /min BP Systolic 124 mmHg BP Diastolic 88 mmHg Height 67 inches 5'7" BMI (Body Mass Index) 35.9 kg/m2 Results Test Date Facility Test Result H/L Range Note CBC Auto 07/27/2019 [facility] White Blood 10.7 10^3/uL Normal 3.5-10.8 Diff Count Red Blood Count 5.49 10^6/uL High 3.70-4.87 Hemoglobin 18.8 g/dL High 12.0-16.0 Hematocrit 55 % High 35-47 Mean Corpuscular Volume 100 fL High 80-97 Mean Corpuscular Hemoglobin 34 pg High 27-31 Mean Corpuscular HGB Conc 34 g/dL Normal 31-36 Red Cell Distribution Width 16 % High 10-15 Platelet Count 126 10^3/uL Low 150-450 Mean Platelet Volume 9.3 fL Normal 7.4-10.4 Abs Neutrophils 8.5 10^3/uL High 1.5-7.7 Abs Lymphocytes 1.0 10^3/uL Normal 1.0-4.8 Abs Monocytes 1.1 10^3/uL High 0-0.8 Abs Eosinophils 0.1 10^3/uL Normal 0-0.6 Abs Basophils 0.1 10^3/uL Normal 0-0.2 Abs Nucleated RBC 0.0 10^3/uL Granulocyte % 79.4 % Lymphocyte % 9.1 % Monocyte % 9.9 % Eosinophil % 1.0 % Basophil % 0.6 % Nucleated Red Blood Cells % 0.2 Comp Metabolic Panel 07/27/2019 [facility] Sodium 137 mmol/L Normal 135-145 Potassium 4.6 mmol/L Normal 3.5-5.0 Chloride 100 mmol/L Low 101-111 Co2 Carbon Dioxide 29 mmol/L Normal 22-32 Anion Gap 8 mmol/L Normal 2-11 Glucose 88 mg/dL Normal 70-100 Blood Urea Nitrogen 44 mg/dL High 6-24 Creatinine 8.45 mg/dL High 0.51-0.95 BUN/Creatinine Ratio 5.2 Low 8-20 Calcium 9.2 mg/dL Normal 8.6-10.3 Total Protein 6.7 g/dL Normal 6.4-8.9 Albumin 4.0 g/dL Normal 3.2-5.2 Globulin 2.7 g/dL Normal 2-4 Albumin/Globulin Ratio 1.5 Normal 1-3 Total Bilirubin 0.80 mg/dL Normal 0.2-1.0 Alkaline Phosphatase 62 U/L Normal 34-104 Alt 5 U/L Low 7-52 Ast 10 U/L Low 13-39 Egfr Non- 5.2 >60 Egfr 6.2 >60 1 Urinalysis 07/27/2019 [facility] Urine White 3+(>20/hpf) Abnormal Absent Profile Blood Cell Urine Red Blood Cell 3+(>10/hpf) Abnormal Absent Urine Bacteria Absent Absent Urine Color Red Abnormal Urine Appearance Turbid Urine Specific [place] 1.013 Normal 1.010-1.030 Urine pH TNP 5-9 2 Urine Urobilinogen TNP Negative 3 Urine Ketones TNP Negative 4 Urine Protein TNP Negative 5 Urine Leukocytes TNP Negative 6 Urine Blood TNP Negative 7 * TNP Negative 8 Urine Nitrite TNP Negative 9 Urine Bilirubin TNP Negative 10 Urine Glucose TNP Negative 11 Urine Culture And 07/27/2019 [facility] Urine Culture SEE RESULT 12 Sensitivities BELOW 1 Because ethnic data is not always [...] 5 Kidney failure <15 (or dialysis) 2 Unable to evaluate urinalysis dipstick results due to interfering color. 3 Unable to evaluate urinalysis dipstick results due to interfering color. 4 Unable to evaluate urinalysis dipstick results due to interfering color. 5 Unable to evaluate urinalysis dipstick results due to interfering color. 6 Unable to evaluate urinalysis dipstick results due to interfering color. 7 Unable to evaluate urinalysis dipstick results due to interfering color. 8 Unable to evaluate urinalysis dipstick results due to interfering color. 9 Unable to evaluate urinalysis dipstick results due to interfering color. 10 Unable to evaluate urinalysis dipstick results due to interfering color. 11 Unable to evaluate urinalysis dipstick results due to interfering color. 12 SEE RESULT BELOW Name: BUFFY BRANTLEY : [address]: Richardson Bautista MD Acct: [id number] Unit: [id number] AGE: 43 Location: ED Re07/27/19 SEX: F Status: DEP ER SPEC: [id number] ES: 07/27/[address]: Richardson Bautista MD REQ: [id number] RECD: 07/27/19 STATUS: PATRICK JOHNSON DR: Regi Garnica LEGAL INVESTIGATOR _ SOURCE: URINE SPDESC: ORDERED: Urine Culture Procedure Result Reported Site Urine Culture Final 07/29/19- 0752 ML Organism 1 ESCHERICHIA COLI [place] Count >100,000 (Many) CFU/ML 1. ESCHERICHIA COLI M.I.C. RX --------- ------ Ampicillin <=2 S Cefazolin <=4 S Cefepime <=1 S Ceftriaxone <=1 S Ciprofloxacin <=0.25 S Gentamicin <=1 S Levofloxacin 1 S Meropenem <=0.25 S Nitrofurantoin <=16 S Tetracycline >=16 R Pipercillin/Tazobactam <=4 S Trimethoprim/Sulfamethoxazole <=20 S Amoxicillin/Clavulanic Acid <=2 S Aztreonam <=1 S Contact the Microbiology Department for any additional antibiotic reporting. * [facility] - Main Lab . END OF REPORT DEPARTMENT OF PATHOLOGY, [address] [place] [address] Graham Ambrocio M.D. Director [facility] # [id number] Procedures Date Code Description Status 08/14/2018 [id number] Mammogram Completed Medical Devices Description No Information Available Encounters Description No Information Available Assessments Date Code Description Provider 07/07/2019 Z00.00 Encounter for general adult medical Regi Garnica RN MS SIDEROGRAPHIST examination without abnormal findings 07/07/2019 Z13.31 Encounter for screening for Regi Garnica RN MS CONY depression 07/07/2019 I10 Essential (primary) hypertension Regi Garnica RN MS SIDEROGRAPHIST 07/07/2019 F41.1 Generalized anxiety disorder Regi Garnica RN MS SIDEROGRAPHIST 07/07/2019 Z23 Encounter for immunization Regi Garnica RN MS SIDEROGRAPHIST 07/07/2019 M25.572 Pain in LEFT ankle and joints of LEFT Regi Garnica RN MS SIDEROGRAPHIST foot 07/07/2019 E78.2 Mixed hyperlipidemia Regi Garnica RN MS SIDEROGRAPHIST 07/07/2019 Z68.37 Body mass index (BMI) 37.0-37.9, Regi Garnica RN MS SIDEROGRAPHIST adult Plan of Treatment 07/07/2019 - [facility] Encounter for general adult medical examination without abnormal findingsComments:Reviewed the use of sun screen and careful routine skin review for changes related to sun exposure. Reviewed immunization record, and [facility] reccommendations for tetnus, both the pneumonia shots( prevnair 13 and pneumovax 23), flu shots and the shingles vaccine.( SHINGRIX ).( SHingles shots are ONLYavailable at the pharmacy and don' t need a prescription) Depression scale reviewed with the patienttest indicated no depression at this time. Mini mental exam completed and scored normal functioning. Risk assessment done and ambulation was observed and is not at risk to fall. Reviewed medication list and provided a new updated copy to the patient. Reviewed specialists patient is seeing and medical issues that are on going. Face to face discussion with the patient today to explain the healthcare proxy materials provided by [facility]. This included the living will information and copy of allinformation was offered to the patient. I reviewed several possible senerios involving changes in health status and the implications of choosing a health care proxy. Time involoved was approx. 16- 20 minutes. All questions were answered.Z13.31 Encounter for screening for [id number] Essential (primary) hypertensionComments:CONDITION CHRONIC AND SZAEVLU40.1 Generalized anxiety disorderNew Medication:Escitalopram Oxalate 20 mg - 1 by mouth every dayLorazepam 1 mg - take 1-2 tablets by mouth Once a day as needed for anxietyMiscellaneous:IN CREASE IN HER ANXIETY MEDS WITH ALL HER HEALTH CONDITIONS, REVIEWED W PT Long discussion on meds for anxiety and depression, reviewed the SE of them and the expectations and how long they take to work. . We reviewed as needed meds, was given the chance to ask questions.Z23 Encounter for cizkislxvlnzR51.572 Pain in LEFT ankle and joints of LEFT footE78.2 Mixed hyperlipidemiaComments:REVIEWED RECENT LABS AND DID FIND SHE HAD A CHOL TEST DONE IN THE SUMMER.Z68.37 Body mass index (BMI) 37.0- 37.9, adult Functional Status Description No Information Available Mental Status Description No Information Available Referrals Description No Information Available
[2019-08-02] MEDS ORDERED: Meclizine TAB* 12.5 MG PO ONE (19:56)
[2019-08-02 19:57] LABS: Urine Appearance Turbid; Urine Bacteria Absent (Absent); Urine Bilirubin Negative (Negative); Urine Blood 3+ (Negative); Urine Glucose Negative (Negative); Urine Ketones Trace (Negative); Urine Nitrite Negative (Negative); Urine Protein 2+(100 mg/dL) (Negative); Urine Red Blood Cell 3+(>10/hpf) (Absent); Urine Urobilinogen Negative (Negative); Urine White Blood Cell 3+(>20/hpf) (Absent)
--- NOTE | 2019-08-02 19:57 | ED ---
GI/ HPI - HPI Summary HPI Summary: This patient is a 43 year old female presenting to [facility] with a chief complaint of bilateral flank pain and hematuria. She states she was diagnosed with UTI 3 days ago and that the medication they gave her Keflex, has not helped in resolving the problem. She states she has end-stage renal disease. She reports dysuria. The patient is on dialysis daily. - History of Current Complaint Chief Complaint: EDUrogenitalProblems Time Seen by Provider: 08/02/19 19:45 Stated Complaint: POSS UTI PER PT Hx Obtained From: Patient Hx Last Menstrual Period: [id number] Onset/Duration: Started Days Ago Pain Intensity: 10 Location of Pain: Flank Pain Characteristics: Sharp - Additional Pertinent History Primary Care Physician: [id number] - Allergy/Home Medications Allergies/Adverse Reactions: Allergies Allergy/AdvReac Type Severity Reaction Status Date / Time morphine AdvReac Severe Difficulty Verified 08/02/19 16:52 Breathing PMH/Surg Hx/FS Hx/Imm Hx Endocrine/Hematology History: Denies: Hx Bone Marrow Disease, Hx Diabetes, Hx Sickle Cell Disease, Hx Thyroid Disease, Hx Anemia Cardiovascular History: Reports: Hx Hypertension - on medication for Denies: Hx Angina, Hx Cardiomegaly, Hx Congestive Heart Failure, Hx Coronary Artery Disease, Hx Pacemaker/ICD, Hx Peripheral Vascular Disease, Hx Rheumatic Fever, Hx Valvular Heart Disease, Other Cardiovascular Problems/Disorders Respiratory History: Reports: Hx Asthma - on medication for, and has rescue inhalers Denies: Hx Chronic Obstructive Pulmonary Disease (COPD), Hx Pulmonary Edema, Hx Pulmonary Embolism, Hx Sleep Apnea, Other Respiratory Problems/Disorders GI History: Reports: Hx Gastroesophageal Reflux Disease - on medication for Denies: Hx Cirrhosis, Hx Crohn's Disease, Hx Hiatal Hernia, Hx Irritable Bowel, Hx Jaundice, Hx Ulcer, Other GI Disorders History: Reports: Hx Chronic Renal Failure, Hx Renal Disease - PD CATH Denies: Hx Kidney Infection, Hx Kidney Stones, Other Problems/Disorders Musculoskeletal History: Denies: Hx Arthritis, Hx Bursitis, Hx Osteoporosis, Hx Tendonitis, Other Musculoskeletal History Sensory History: Denies: Hx Cataracts, Hx Contacts or Glasses, Hx Glaucoma, Hx Hearing Aid Opthamlomology History: Denies: Hx Cataracts, Hx Contacts or Glasses, Hx Glaucoma Neurological History: Reports: Hx Migraine - pt states migraines have improved, Hx Transient Ischemic Attacks (TIA) Denies: Hx Headaches, Hx Nerve Disease, Hx Seizures, Other Neuro Impairments/ Disorders Psychiatric History: Reports: Hx Anxiety - on medication for, Hx Panic Disorder Denies: Hx Depression - Cancer History Hx Chemotherapy: No - Surgical History Surgery Procedure, Year, and Place: RIGHT ARM FISTULA-03/2018[place] [place]. PD port placement 06/2018. [facility] 2018. PD catheter removal and reinsertion in 2019. -Fistula repair. 06/18/19 fistula repair Hx Anesthesia Reactions: No - Immunization History Date of Influenza Vaccine: 08/20 Infectious Disease History: No Infectious Disease History: Denies: Hx Clostridium Difficile, Hx Hepatitis, Hx Human Immunodeficiency Virus (HIV), Hx of Known/Suspected MRSA, Hx Shingles, Hx Tuberculosis, Hx Known/ Suspected VRE, Hx Known/Suspected VRSA, History Other Infectious Disease, Traveled Outside the [place] in Last 30 Days - Family History Known Family History: Positive: Hypertension, Renal Disease - Social History Alcohol Use: None Substance Use Type: Reports: None Smoking Status (MU): Former Smoker Type: Cigarettes Amount Used/How Often: 1/2 ppd smoked for 20 years Have You Smoked in the Last Year: No Review of Systems Negative: Fever Positive: dysuria, flank pain, hematuria All Other Systems Reviewed And Are Negative: Yes Physical Exam - Summary Physical Exam Summary: VITAL SIGNS: Reviewed. GENERAL: Patient is a well-developed and nourished FEMALE who is lying comfortable in the stretcher. Patient is not in any acute respiratory distress. HEAD AND FACE: No signs of trauma. No ecchymosis, hematomas or skull depressions. No sinus tenderness. EYES: PERRLA, EOMI x 2, No injected conjunctiva, no nystagmus. EARS: Hearing grossly intact. Ear canals and tympanic membranes are within normal limits. MOUTH: Oropharynx within normal limits. NECK: Supple, trachea is midline, no adenopathy, no JVD, no carotid bruit, no c- spine tenderness, neck with full ROM. CHEST: Symmetric, no tenderness at palpation. LUNGS: Clear to auscultation bilaterally. No wheezing or crackles. CVS: Regular rate and rhythm, S1 and S2 present, no murmurs or gallops appreciated. ABDOMEN: Soft, non-tender. No signs of distention. No rebound, no guarding, and no masses palpated. Bowel sounds are normal. EXTREMITIES: FROM in all major joints, no edema, no cyanosis or clubbing. NEURO: Alert and oriented x 3. No acute neurological deficits. Speech is normal and follows commands. SKIN: Dry and warm. Triage Information Reviewed: Yes Vital Signs On Initial Exam: Initial Vitals Temp Pulse Resp BP Pulse Ox 96.3 F 93 18 115/73 95 08/02/19 16:46 08/02/19 16:46 08/02/19 16:46 08/02/19 16:46 08/02/19 16:46 Vital Signs Reviewed: Yes Diagnostics - Vital Signs Vital Signs Temp Pulse Resp BP Pulse Ox 08/02/19 19:39 84 19 94/58 97 08/02/19 19:30 81 93 08/02/19 19:19 97.8 F 91 18 136/95 95 08/02/19 16:46 96.3 F 93 18 115/73 95 - Laboratory Result Diagrams: 08/02/19 20:13 08/02/19 20:13 Lab Statement: Any lab studies that have been ordered have been reviewed, and results considered in the medical decision making process. - EKG 1928 Cardiac Rate: NL - 81 BPM EKG Rhythm: Sinus Rhythm EKG Comparison: No Significant Change Summary of EKG Findings: ST-abnormalties consistent with 01/02/19. ED Physician has reviewed and interpreted this report. GIGU Course/Dx - Course Assessment/Plan: This patient is a 43 year old female presenting to [facility] with a chief complaint of bilateral flank pain and hematuria. She states she was diagnosed with UTI 3 days ago and that the medication they gave her Keflex, has not helped in resolving the problem. She states she has end-stage renal disease. She reports dysuria. The patient is on dialysis daily. Blood work shows no levels account. Hemoglobin and hematocrit is normal. Sodium is 131, chloride is 92, anion gap is 16, BUN is 57, creatinine is 11.18 which is higher than her usual. Calcium is 8, CRP is 407, albumin is 2.1. The TSH is 22.04. Urinalysis the color is red, 2+ protein, trace ketones, 2+ blood, 1+ leukocytes , 2+ WBCs and 2+ RBCs. therefore, this is consistent with a UTI/pyelonephritis. The patient was given 250 cc of fluid since the patients blood pressure is in the low side. The patient also started and ceftriaxone which is sensitive according to the last urine culture where Escherichia coli was positive. Patient reports that the PD fluid is clear. Likely not infected. I discussed the case with Dr. Medina nephrologists, he doesnt think that the patient would need hemodialysis. He recommends to continue with peritoneal dialysis. He also recommends to continue with ceftriaxone. I also discussed the case with Dr. Davis from the hospital services who accepted the patient for admission. Patient continues to be hemodynamically stable. Patient usually takes a DuoNeb nighttime so she requested that whenever she was given 1 DuoNeb. - Diagnoses Provider Diagnoses: ESRD (end stage renal disease) on dialysis, UTI (urinary tract infection), Pyelonephritis - Physician Notifications Discussed Care Of Patient With: Georgiana Medina - Nephrology Time Discussed With Above Provider: 21:00 Instructed by Provider To: Admit As Inpatient Discharge ED - Sign-Out/Discharge Documenting (check all that apply): Patient Departure Patient Received Moderate/Deep Sedation with Procedure: No - Discharge Plan Condition: Stable Disposition: ADMITTED TO [facility] Referrals: Regi Garnica [Primary Care Provider] - - Billing Disposition and Condition Condition: STABLE Disposition: Admitted to [facility] - Attestation Statements Document Initiated by Amandaibcarmen: Yes Documenting Scribe: Partha Mcintyre Provider For Whom Zack is Documenting (Include Credential): Richardson Bautista MD Scribcarmen Attestation: IPartha, scribed for Richardson Bautista MD on 08/02/19 at 2201. Scribe Documentation Reviewed: Yes Provider Attestation: The documentation as recorded by the Partha ewing accurately reflects the service I personally performed and the decisions made by me, Richardson Bautista MD Status of Scribe Document: Viewed
[2019-08-02] MEDS ORDERED: cefTRIAXone(*) 2 GM in NS 0.9% 100 ML* 100 ML IVPB ONE (19:58)
[2019-08-02 19:59] LABS: Urine Color Red
[2019-08-02] MEDS ORDERED: NS 0.9% 250 ML* 250 ML IV ONE (19:59)
[2019-08-02] MEDS ORDERED: cefTRIAXone(*) 2 GM ADDV.VIAL IVPB ONE (20:14)
[2019-08-02 20:27] LABS: Hematocrit 46 % (35-47); Hemoglobin 15.9 g/dL (12.0-16.0); Mean Corpuscular HGB Conc 35 g/dL (31-36); Mean Corpuscular Hemoglobin 34 pg (27-31); Mean Corpuscular Volume 98 fL (80-97); Mean Platelet Volume 9.3 fL (7.4-10.4); Platelet Count 192 10^3/uL (150-450); Red Blood Count 4.63 10^6 /uL (3.70-4.87); Red Cell Distribution Width 17 % (10-15); White Blood Count 10.1 10^3/uL (3.5-10.8)
[2019-08-02 20:34] LABS: INR 1.27 (0.82-1.09)
[2019-08-02 20:42] LABS: Albumin 3.1 g/dL (3.2-5.2); Albumin/Globulin Ratio 0.9 (1-3); BUN/Creatinine Ratio 5.1 (8-20); C Reactive Protein 407.25 mg/L (<8.01); EGFR African American 4.5 (>60); EGFR Non-African American 3.7 (>60); Globulin 3.6 g/dL (2-4); Magnesium 2.3 mg/dL (1.9-2.7); Potassium 4.3 mmol/L (3.5-5.0); Total Bilirubin 0.4 mg/dL (0.2-1.0); Total Protein 6.7 g/dL (6.4-8.9)
[2019-08-02 20:43] LABS: Troponin I 0.01 ng/mL (<0.04)
[2019-08-02] MEDS ORDERED: Ondansetron INJ* 2 MG/ML VIAL IV ONE (20:44)
[2019-08-02] MEDS ORDERED: Albuterol/Ipratropium NEB.SOL* Albuterol 2.5 MG/Ipratropium 0.5 MG 3 ML INH ONE (20:45)
[2019-08-02 21:07] LABS: TSH (Thyroid Stimulating Horm) 22.04 mcIU/mL (0.34-5.60)
[2019-08-02 21:11] LABS: ABS Eosinophils 0.1 10^3/ul (0-0.6); ABS Lymphocytes 0.5 10^3/ul (1.0-4.8); ABS Neutrophils 8.5 10^3/ul (1.5-7.7); Lymphocyte % 4.7 %
[2019-08-03] MEDS ORDERED: Albuterol HFA INHALER* 8 gm MDI INH PRN (00:09)
[2019-08-03] MEDS: Acetaminophen TAB* 325 MG PO PRN (00:35)
[2019-08-03] MEDS: oxyCODONE/Acetamin 5/325 MG* TAB PO PRN ×3 (01:32→18:19)
[2019-08-03] MEDS ORDERED: LORazepam TAB(*) 0.5 MG PO ONE (04:40)
[2019-08-03] MEDS: Levothyroxine TAB* 50 MCG TAB PO SCH (06:04)
[2019-08-03 06:18] LABS: ABS Eosinophils 0.1 10^3/ul (0-0.6); ABS Lymphocytes 0.4 10^3/ul (1.0-4.8); ABS Monocytes 0.8 10^3/ul (0-0.8); ABS Neutrophils 7.2 10^3/ul (1.5-7.7); Eosinophil % 0.8 %; Hematocrit 44 % (35-47); Hemoglobin 14.8 g/dL (12.0-16.0); Lymphocyte % 4.6 %; Mean Corpuscular HGB Conc 34 g/dL (31-36); Mean Corpuscular Hemoglobin 34 pg (27-31); Mean Corpuscular Volume 98 fL (80-97); Mean Platelet Volume 9.4 fL (7.4-10.4); Platelet Count 202 10^3/uL (150-450); Red Blood Count 4.43 10^6 /uL (3.70-4.87); Red Cell Distribution Width 17 % (10-15); White Blood Count 8.5 10^3/uL (3.5-10.8)
[2019-08-03 06:42] LABS: BUN/Creatinine Ratio 5.1 (8-20); EGFR African American 4.5 (>60); EGFR Non-African American 3.7 (>60); Magnesium 2.4 mg/dL (1.9-2.7); Potassium 3.9 mmol/L (3.5-5.0)
--- NOTE | 2019-08-03 08:09 | CONSULT ---
Consult Consult: Consult requested by ED Richardson Bautista, for ESRD on PD & performed by Dr. Zofia Medina , [facility] Nephrology 08/03/2019 43 year old female ESRD on PD since 02/2019. Admitted with bilateral flank pain, dysuria and hematuria, UTI, s/p Keflex 3 days ago, but didnt help. UCx showed E.Coli Of note, PD fluid is clear per her, and she didnt have interruption in her PD daily Rx. She 's on Night CCPD, duration of 10 Hr, x 5 Exchanges of 2.4 L fill volume, days dry, & alternating 1.5% & 2.5% Dextrose. Her UF 2L daily. Last night had to use 2 bags of 4.25% dextrose. I discussed this with the ED provider last night & advise changing antibiotic as Keflex apparently failed. No clinical evidence of peritonitis, as pains was localized & suprapubic, and PD fluid was clear. ED nurse obtained fluid gm stain, was negative. It doesn't seem cell count was sent. [facility] PD nurse will discuss with the patient about the technique when they obtained from PD fluid, which seems appropriate, but if there was a breach in sterilely, will give ABx prophylaxis. Resume PD while inpatient. Past Medical History: HTN ESRD ADPKD PD to HD to PD CVA Dyslipidemia Current medications: Acetaminophen Albuterol Aspirin Atorvastatin Baclofen Cyanocobalamin Escitalopram Ceftriaxone 1 gm IV qd Influenza Virus Vaccine Ipratropium [place] Levothyroxine Sodium Lisinopril 30 qd Magnesium Oxide Melatonin Mometasone Nortriptyline Oxycodone/Acetaminophen Pantoprazole Allergies morphine Adverse Reaction (Severe, Verified 08/02/19 16:52) Difficulty Breathing Itchy and body tension and breathing difficulty Social History,Family History &Surgical History:Reviewed 12-Point Review of Systemobtained: Negative exceptpertinent positives: Constitutional no fever no weight loss Eyes No blurry vision CV no shortness of breath no chest pain no syncope no edema Resp No shortness of breath no cough no wheezing G.I. no diarrhea no nausea no vomiting no pain no blood per rectum no burning no obstruction symptoms Skin no rash Neurology No seizures or neurologic deficit Endocrine no diabetes Hem/Lymp no bleeding no lymph nodes Immun/Allergy no allergic actions Musculoskeletal no Arthritis no swelling no pain Psych no anxiety no depression no hallucination Objective: 10 Pointmulti systemexam: Negative except pertinent positive Vital Signs: Vital Signs Temp 98.0 F 08/03/19 03:28 Pulse 86 08/03/19 03:28 Resp 20 08/03/19 04:57 BP 96/51 08/03/19 03:28 Pulse Ox 96 08/03/19 03:28 Constitutional Alert Oriented x 3 Abdomen SoftAbdomen No Ascites. PD Cath Heart: NSR,No LE Edema, No murmur Lungs: Clear to auscultation, No Crackles Extremities: No edema, rash Laboratory Reviewed ABG pH 7.41 (7.35-7.45) 08/02/19 21:20 ABG HCO3 20.2 mmol/L (19-31) 08/02/19 21:20 Sodium 131 mmol/L (135-145) L 08/03/19 05:30 Potassium 3.9 mmol/L (3.5-5.0) 08/03/19 05:30 BUN 57 mg/dL (6-24) H 08/03/19 05:30 Creatinine 11.25 mg/dL (0.51-0.95) H 08/03/19 05:30 Calcium 8.0 mg/dL (8.6-10.3) L 08/03/19 05:30 Magnesium 2.4 mg/dL (1.9-2.7) 08/03/19 05:30 AST 11 U/L (13-39) L 08/02/19 20:13 ALT 8 U/L (7-52) 08/02/19 20:13 Assessment and Plan: 1. PD 2. UTI 3. ESRD. 4. Fluid 5. BP 6. Lytes
[2019-08-03] MEDS: Mometasone/Formoter 200/5 MDI INH SCH ×2 (08:52→20:01)
[2019-08-03] MEDS ORDERED: Influenza VAC *QUAD* 2019-20* 0.5 ML SYRINGE IM ONE (09:00)
[2019-08-03] MEDS ORDERED: Furosemide TAB* 20 MG PO SCH (09:00)
[2019-08-03] MEDS ORDERED: Lisinopril TAB* 10 MG PO SCH (09:00)
[2019-08-03 09:03] LABS: T4, Total 0.89 mcg/dL (6.09-12.23)
[2019-08-03] MEDS: Ondansetron INJ* 2 MG/ML VIAL IV PRN ×2 (09:46→18:19)
[2019-08-03] MEDS: Escitalopram * 10 MG TAB PO SCH (09:47)
[2019-08-03] MEDS: Pantoprazole TAB * 40 MG TAB PO SCH (09:47)
[2019-08-03] MEDS: Aspirin 81 mg CHEW TAB* 81 MG TAB.CHEW PO SCH (09:47)
[2019-08-03] MEDS: Cyanocobalamin TAB* 500 MCG PO SCH (09:48)
[2019-08-03] MEDS: Magnesium Oxide TAB* 400 MG PO SCH (09:49)
--- NOTE | 2019-08-03 09:49 | HP ---
CC: Regi Garnica NP; Dr. Gonzalez * ADMISSION HISTORY AND PHYSICAL: DATE OF ADMISSION: 08/02/19 CHIEF COMPLAINT: Dysuria. HISTORY OF PRESENT ILLNESS: Ms. Toney is a 43-year-old woman with history of autosomal dominant polycystic kidney disease, who developed bilateral flank pain about 9 days prior to admission. She states she had a fever on the first day of this illness but then cold sweats overnight most of the days since then. She developed dysuria 3 days prior to admission, this has been worsening. She came to the ER on the first day of dysuria, 3 days ago and was started on Keflex. She has not seen any improvement in her dysuria while on this antibiotic. Urine culture taken at that time grew E. coli which was pansensitive. She has been in communication with Dr. Gonzalez and he was the one who advised ER visit earlier. She has also been in contact with her primary care doctor, who gave her tramadol for her back pain. The patient does report having cyst ruptures in the past which were similar but unilateral. In this case the pain is bilateral flank pain. PAST MEDICAL HISTORY: 1. End-stage renal disease, on peritoneal dialysis, previously was on hemodialysis through fistula in the right arm which failed. 2. She has autosomal dominant polycystic kidney disease. 3. Hyperlipidemia. 4. Depression. 5. Restless legs syndrome. 6. Asthma. 7. Osteoarthritis. 8. GERD. PAST SURGICAL HISTORY: Fistula surgeries multiple times and PD catheter placement. MEDICATIONS ON ADMISSION: 1. Acetaminophen with codeine 1 tab q.6 hours p.r.n. pain. 2. Albuterol 2 puffs q.4 hours p.r.n. wheezing. 3. Aspirin 81 mg p.o. daily. 4. Baclofen 10 mg p.o. q.h.s. 5. Cetirizine 5 mg p.o. q.a.m. p.r.n. 6. Vitamin D 2000 units p.o. daily. 7. Cyanocobalamin tablet 500 mcg p.o. q.a.m. 8. Lexapro 10 mg p.o. q.a.m. 9. Breo Ellipta 1 inhalation in the a.m. 10. Furosemide 20 mg p.o. q.a.m. 11. Ipratropium nebulizer q.6 hours as needed. 12. Lisinopril 30 mg p.o. q.a.m. 13. Magnesium oxide 400 mg p.o. q.a.m. 14. Montelukast 10 mg p.o. q.a.m. 15. Mupirocin 2% topical to affected area as needed. 16. Nortriptyline 25 mg p.o. q.h.s. 17. Omeprazole 40 mg p.o. q.a.m. 18. Ondansetron 4 mg p.o. daily p.r.n. nausea. 19. Oxycodone/acetaminophen 1 tab p.o. q.12 hours p.r.n. severe pain. 20. Simvastatin 20 mg p.o. q.h.s. 21. Vitamin E 1000 units p.o. daily. 22. Cephalexin 500 mg p.o. t.i.d. ALLERGIES: MORPHINE. FAMILY HISTORY: Notable for father with autosomal dominant polycystic kidney disease. Her mother is healthy. SOCIAL HISTORY: She is disabled. She is . She has 1 child. She never smoked, no alcohol or drug use. REVIEW OF SYSTEMS: The patient has had no fevers in several days. The patient denies any chest pain or palpitations. The patient denies any cough or hemoptysis. She has had some nausea and vomiting and abdominal pain. She feels the pain is similar to past episode of bacterial peritonitis. The patient does report gross hematuria and dysuria. Remainder of her 14-point review of systems is negative other than mentioned in the HPI. PHYSICAL EXAMINATION GENERAL: She is alert, in no acute distress. VITAL SIGNS: Temperature is 36.6, pulse 97 to 110, respirations 25, blood pressure is 71/44 up to 91/53 after fluid bolus of 250 cc, O2 sat is 95%. HEENT: Head is normocephalic, atraumatic. Sclerae are anicteric. Pupils equal , round, and reactive to light and accommodation. Oropharynx is moist, no lesions. NECK: No JVD, no carotid bruits, no thyromegaly. LUNGS: Clear to auscultation and percussion bilaterally. HEART: Tachycardiac, regular with 2/6 systolic murmur. ABDOMEN: Soft, distended, tender throughout. No rebound. There is a PD catheter in the upper mid abdomen which has some erythema around. EXTREMITIES: No peripheral edema. Dorsalis pedis pulses 1+ bilaterally. NEUROLOGIC: Cranial nerves II through XII are intact. Motor strength is 5/5 throughout. Deep tendon reflexes are symmetric. DIAGNOSTIC STUDIES/LAB DATA: Sodium 131, potassium 4.3, chloride 92, bicarb 23 , BUN 57, creatinine 11.18, calcium 8.0. Troponin 0.01. INR 1.27. PTT 36.0. TSH is 22.04. White count 10.1, hemoglobin 15.9, hematocrit 46%, platelets are 192. BNP is 73. CRP is 407. PH is 7.41, PCO2 27, PO2 181. Urinalysis is red fluid with 2+ protein and 1+ leuk esterase. EKG shows normal sinus rhythm, normal axis, and some J point elevation. Chest x-ray is negative for infiltrates or effusion. ASSESSMENT AND PLAN: A 43-year-old woman presenting with flank pain, hematuria , subjective fevers. Differential would include ascending urinary tract infection, pyelonephritis versus cyst rupture. The patient will be started on ceftriaxone given her cultures from 3 days ago, which showed a pansensitive Escherichia coli. She does not strictly meet criteria for sepsis although her blood pressure was quite low on admission. She does not have a high white count , in fact she is somewhat tachycardiac and tachypneic. The patient should be monitored closely for fungal sepsis. The patient also has possible bacterial peritonitis. Bacterial culture and cell count of that fluid will be sent. Broad spectrum antibiotics may be necessary as she has bacterial peritonitis. For her chronic renal disease, the patient is going to continue dialyzing through her peritoneal dialysis overnight tonight and ongoing period. The case was discussed through the ER with Nephrology. The patient has chronic metabolic acidosis respiratory compensation which appear stable. The patient has new diagnosis of hypothyroidism. She will be started on Synthroid and she will have a repeat TSH in 2 months. [id number]/[facility] #: [id number] [facility]
[2019-08-03] MEDS: LORazepam TAB(*) 0.5 MG PO PRN ×2 (10:04→19:05)
[2019-08-03] MEDS: Ipratropium 0.5MG/2.5ML NEB* 0.5 MG/2.5 ML NEB.SOLN INH PRN ×2 (10:14→20:00)
[2019-08-03 11:55] LABS: Free T4 0.48 ng/dL (0.61-1.12)
[2019-08-03] MEDS ORDERED: Lorazepam PYXIS KEY ONE (12:20)
[2019-08-03] MEDS ORDERED: LORazepam INJ* 2 MG/ML 1 ML VIAL IV PUSH ONE (12:20)
--- NOTE | 2019-08-03 14:39 | PN ---
Subjective Date of Service: 08/03/19 Interval History: Patient felt severe bilateral flank pain, 7/10, not improving with antibiotics. Doing peritoneal dialysis, fluid in the bag is clean. No fever, chills, unable to tell dysuria due to flank pain. Objective Active Medications: Acetaminophen (Tylenol Tab*) 650 mg PO Q4H PRN PRN Reason: FEVER/HEADACHE Last Admin: 08/03/19 00:35 Dose: 650 mg Albuterol (Ventolin Hfa Inhaler*) 2 puff INH Q4H PRN PRN Reason: SOB/WHEEZING Aspirin (Aspirin 81 Mg Chew Tab*) 81 mg PO QAM [facility] Last Admin: 08/03/19 09:47 Dose: 81 mg Atorvastatin Calcium (Lipitor*) 10 mg PO BEDTIME KO Baclofen (Lioresal Tab*) 10 mg PO BEDTIME [facility] Cyanocobalamin (Vitamin B12 Tab*) 500 mcg PO QAM [facility] Last Admin: 08/03/19 09:48 Dose: 500 mcg Escitalopram Oxalate (Lexapro *) [facility] [place] Last Admin: 08/03/19 09:47 Dose: 10 mg Ceftriaxone Sodium 1 gm/ (Sodium Chloride) 50 mls @ 100 mls/hr IVPB Q24H [facility] Ipratropium [place] (Atrovent 0.5 Mg Neb.[place]*) 0.5 mg INH Q6H PRN PRN Reason: SOB/WHEEZING Last Admin: 08/03/19 10:14 Dose: 0.5 mg Levothyroxine Sodium (Synthroid Tab*) 50 mcg PO DAILY@0600 [facility] Last Admin: 08/03/19 06:04 Dose: 50 mcg Lorazepam (Ativan Tab(*)) 0.5 mg PO Q6H PRN PRN Reason: ANXIETY Last Admin: 08/03/19 10:04 Dose: 0.5 mg Magnesium Oxide (Magox 400 Tab*) 400 mg PO QAM [facility] Last Admin: 08/03/19 09:49 Dose: 400 mg Melatonin (Melatonin) 3 mg PO BEDTIME [facility] Mometasone Furoate/Formoterol Fumar (Dulera 200/5 Mdi*) 2 puff INH BID [facility] Last Admin: 08/03/19 08:52 Dose: Not Given Nortriptyline HCl (Pamelor Cap*) 25 mg PO BEDTIME KO Ondansetron HCl (Zofran Inj*) 4 mg IV Q6H PRN PRN Reason: NAUSEA Last Admin: 08/03/19 09:46 Dose: 4 mg Oxycodone/Acetaminophen (Percocet 5/325 Tab*) 1 tab PO Q6H PRN PRN Reason: PAIN Last Admin: 08/03/19 09:46 Dose: 1 tab Pantoprazole Sodium (Protonix Tab*) 40 mg PO QAM KO Last Admin: 08/03/19 09:47 Dose: 40 mg Vital Signs - 8 hr 08/03/19 08/03/19 08/03/19 07:58 08:00 09:46 Temperature 97.3 F Pulse Rate 67 Respiratory 20 19 20 Rate Blood Pressure 90/51 (mmHg) O2 Sat by Pulse 98 Oximetry 08/03/19 08/03/19 08/03/19 10:04 10:17 12:43 Temperature Pulse Rate 78 Respiratory 17 18 17 Rate Blood Pressure (mmHg) O2 Sat by Pulse 99 Oximetry Oxygen Devices in Use Now: Nasal Cannula Exam: Appearance: not in acute distress, but appears uncomfortable Eyes: No Scleral Icterus Ears/Nose/Mouth/Throat: NL Teeth, Lips, Gums Neck: NL Appearance and Movements; NL JVP Respiratory: Symmetrical Chest Expansion and Respiratory Effort Cardiovascular: RRR Abdominal: tenderness on bilateral flanks. no rebound tenderness, no rigidity, CVA tenderness+ Lymphatic: No Cervical Adenopathy Extremities: No Edema Result Diagrams: 08/03/19 05:30 08/03/19 05:30 Assess/Plan/Problems-Billing Assessment: 43 y/o female with history of ESRD and polycystic kidney disease, presented with flank pain, gross hematuria, and positive urine culture Ecoli pansensitive , likely cyst rupture cx UTI, peritonitis less likely at this moment. Also primary hypothyrodism was found with treatment started. - Patient Problems (1) Ruptured cyst of kidney Current Visit: Yes Status: Acute Code(s): Q61.00 - CONGENITAL RENAL CYST, UNSPECIFIED SNOMED Code(s): 50471812 Comment: Hb drop from 18.8->15.9 continue iv ceftriaxone a/w blood culture and urine cs symptomatic treatment including pain control (oxycodone, allergic to morphine) (2) Anxiety Current Visit: Yes Status: Acute Code(s): F41.9 - ANXIETY DISORDER, UNSPECIFIED SNOMED Code(s): 88133288 Comment: anxiety attack today, resolved with ativan continue prn ativan, continue Lexapro (3) ESRD (end stage renal disease) on dialysis Current Visit: No Status: Chronic Code(s): N18.6 - END STAGE RENAL DISEASE; Z99.2 - DEPENDENCE ON RENAL DIALYSIS SNOMED Code(s): 499202026 Comment: - not likely peritonitis as clear fluid - continue PD - weight daily - PD nurse to assist (4) DVT prophylaxis Current Visit: No Status: Acute Code(s): ZTM5522 - SNOMED Code(s): 552421890 Comment: ambulatory Status and Disposition: Inpatient Medicine Attestation Documenting Resident: Daphne Chapman Supervising Physician: Partha Moreno Attending/Supervising Physician Comment: 43 F 9 d abdominal pain and b/l flank pain s/p 3 days abx for recently diagnosed UTI pw hematuria and continued pain. Differential includes, cystitis, pyelonephritis, peritonitis and ruptured cyst. Peritoneal fluid culture negative. Improving on abx. Hematuria continues. Continue abx and PD overnight. Attestation: This service has been performed in part by a resident under the direction of a teaching physician.I, Partha Moreno, performed the service, or was physically present during the critical, or carreon portions of the service, furnished by the resident. I participated in the management of the patient.
[2019-08-03 18:36] LABS: Body Fluid Source Peritonial Fluid
[2019-08-03 19:27] LABS: Body Fluid Mono 4 %; Body Fluid Other Cells 8
[2019-08-03] MEDS: Atorvastatin* 10 MG TAB PO SCH (21:02)
[2019-08-03] MEDS: Baclofen TAB* 10 MG PO SCH (21:02)
[2019-08-03] MEDS: Melatonin 3 MG TAB PO SCH (21:02)
[2019-08-03] MEDS: cefTRIAXone(*) 1 GM in NS 0.9% 50 ML* 50 ML IVPB SCH (21:02)
[2019-08-03] MEDS: Nortriptyline CAP* 25 MG PO SCH (21:02)
[2019-08-03] MEDS ORDERED: Vancomycin(*) 1,000 MG in NS 0.9% 250 ML* 250 ML IVPB ONE (22:00)
[2019-08-04] MEDS: Acetaminophen TAB* 325 MG PO PRN (00:18)
[2019-08-04] MEDS: Levothyroxine TAB* 50 MCG TAB PO SCH (05:55)
[2019-08-04] MEDS: Mometasone/Formoter 200/5 MDI INH SCH ×2 (07:19→20:30)
[2019-08-04 07:27] LABS: Hematocrit 45 % (35-47); Hemoglobin 15.3 g/dL (12.0-16.0); Mean Corpuscular HGB Conc 34 g/dL (31-36); Mean Corpuscular Hemoglobin 34 pg (27-31); Mean Corpuscular Volume 98 fL (80-97); Platelet Count 238 10^3/uL (150-450); Red Blood Count 4.56 10^6 /uL (3.70-4.87); Red Cell Distribution Width 17 % (10-15); White Blood Count 12.5 10^3/uL (3.5-10.8)
[2019-08-04 07:55] LABS: EGFR African American 4.8 (>60); Potassium 4.3 mmol/L (3.5-5.0)
[2019-08-04] MEDS: Pantoprazole TAB * 40 MG TAB PO SCH (08:09)
[2019-08-04] MEDS: Escitalopram * 10 MG TAB PO SCH (08:09)
[2019-08-04] MEDS: Cyanocobalamin TAB* 500 MCG PO SCH (08:09)
[2019-08-04] MEDS: Aspirin 81 mg CHEW TAB* 81 MG TAB.CHEW PO SCH (08:09)
[2019-08-04] MEDS: Magnesium Oxide TAB* 400 MG PO SCH (08:09)
[2019-08-04 08:10] LABS: Thyroid Peroxidase Antibodies 1.53 IU/mL (<9)
[2019-08-04 08:17] LABS: ABS Basophils 0.1 10^3/ul (0-0.2); ABS Eosinophils 0.1 10^3/ul (0-0.6); ABS Lymphocytes 0.5 10^3/ul (1.0-4.8); ABS Monocytes 2.3 10^3/ul (0-0.8); ABS Neutrophils 9.5 10^3/ul (1.5-7.7); Eosinophil % 0.8 %; Lymphocyte % 4.1 %; Nucleated Red Blood Cells % 0.1
--- NOTE | 2019-08-04 08:29 | PN ---
Progress Note - Progress Note Date of Service: 08/04/19 Note: Nephrology follow-up note 08/04/[address] Zofia Medina, [facility] Polycystic kidney disease with UTI +ve Ucx E. coli with PD related peritonitis WBC 140~80% neutrophils. On IV ceftriaxone & s/p 1 g Vanc IV last night. PD fluid culture still pending, today will be started on IP vancomycin 2 g and gentamicin 80 mg. Likely she peritonitis 2/2 ruptured infected cyst Of note, PD fluid gm stain was negative in the ER PD regimen: Night CCPD, Duration 10 Hr, Volume 12L, 5 Exchanges of 2.4 L fill volume, days dry. Alternating 1.5% & 2.5% Dextrose. Her UF 2L daily. She feels better, pain significantly improved she c/c of constipation PD is continued while inpatient. Current medications: Acetaminophen (Tylenol Tab*) 650 mg PO Q4H PRN PRN Reason: FEVER/HEADACHE Last Admin: 08/04/19 00:18 Dose: 650 mg Albuterol (Ventolin Hfa Inhaler*) 2 puff INH Q4H PRN PRN Reason: SOB/WHEEZING Aspirin (Aspirin 81 Mg Chew Tab*) 81 mg PO QAM [facility] Last Admin: 08/04/19 08:09 Dose: 81 mg Atorvastatin Calcium (Lipitor*) 10 mg PO BEDTIME [facility] Last Admin: 08/03/19 21:02 Dose: 10 mg Baclofen (Lioresal Tab*) 10 mg PO BEDTIME [facility] Last Admin: 08/03/19 21:02 Dose: 10 mg Cyanocobalamin (Vitamin B12 Tab*) 500 mcg PO QAM [facility] Last Admin: 08/04/19 08:09 Dose: 500 mcg Escitalopram Oxalate (Lexapro *) 10 mg PO QAM [facility] Last Admin: 08/04/19 08:09 Dose: 10 mg Ceftriaxone Sodium 1 gm/ (Sodium Chloride) 50 mls @ 100 mls/hr IVPB Q24H [facility] Last Admin: 08/03/19 21:02 Dose: 100 mls/hr Ipratropium [place] (Atrovent 0.5 Mg Neb.Iona*) 0.5 mg INH Q6H PRN PRN Reason: SOB/WHEEZING Last Admin: 08/03/19 20:00 Dose: 0.5 mg Levothyroxine Sodium (Synthroid Tab*) 50 mcg PO DAILY@0600 [facility] Last Admin: 08/04/19 05:55 Dose: 50 mcg Lorazepam (Ativan Tab(*)) 0.5 mg PO Q6H PRN PRN Reason: ANXIETY Last Admin: 08/03/19 19:05 Dose: 0.5 mg Magnesium Oxide (Magox 400 Tab*) [facility] [place] Admin: 08/04/19 08:09 Dose: 400 mg Melatonin (Melatonin) 3 mg PO BEDTIME [facility] Last Admin: 08/03/19 21:02 Dose: 3 mg Mometasone Furoate/Formoterol Fumar (Dulera 200/5 Mdi*) 2 puff INH BID [facility] Last Admin: 08/04/19 07:19 Dose: 2 puff Nortriptyline HCl (Pamelor Cap*) 25 mg PO BEDTIME [facility] Last Admin: 08/03/19 21:02 Dose: 25 mg Ondansetron HCl (Zofran Inj*) 4 mg IV Q6H PRN PRN Reason: NAUSEA Last Admin: 08/03/19 18:19 Dose: 4 mg Oxycodone/Acetaminophen (Percocet 5/325 Tab*) 1 tab PO Q6H PRN PRN Reason: PAIN Last Admin: 08/03/19 18:19 Dose: 1 tab Pantoprazole Sodium (Protonix Tab*) 40 mg PO [facility] Last Admin: 08/04/19 08:09 Dose: 40 mg Vancomycin HCl (Vancomycin(*)) 2,000 mg IRRIGATION ONCE ONE Stop: 08/04/19 09:01 Objective: Vital Signs: Temp Pulse Resp BP Pulse Ox 98 F 85 15 97/46 95 08/04/19 07:15 08/04/19 07:22 08/04/19 07:22 08/04/19 07:15 08/04/19 07:22 Constitutional Alert Oriented x 3 Abdomen SoftAbdomen No Ascites. PD Cath. No tenderness Heart: NSR,No LE Edema, No murmur Lungs: Clear to auscultation, No Crackles Extremities: No edema, rash Laboratory Reviewed ABG pH 7.41 (7.35-7.45) 08/02/19 21:20 ABG HCO3 20.2 mmol/L (19-31) 08/02/19 21:20 Sodium 132 mmol/L (135-145) L 08/04/19 05:31 Potassium 4.3 mmol/L (3.5-5.0) 08/04/19 05:31 BUN 53 mg/dL (6-24) H 08/04/19 05:31 Creatinine 10.55 mg/dL (0.51-0.95) H 08/04/19 05:31 Calcium 8.0 mg/dL (8.6-10.3) L 08/04/19 05:31 Magnesium 2.4 mg/dL (1.9-2.7) 08/03/19 05:30 AST 11 U/L (13-39) L 08/02/19 20:13 ALT 8 U/L (7-52) 08/02/19 20:13 Assessment and Plan: 1. PD. ESRD. Continue same prescription 2. UTI on IV ceftriaxone. Management per primary team. Likely ruptured infected Cyst 3. PD related peritonitis: Empiric ABx: IP Vancomycin and Gentamicin until cultures back. Repeat WBCs in PD fluid in few days. Peritonitis 2/2 to ruptured infected chest, is likely if PD Fluid culture is E. coli. Treatment is 14-21 days, depending on clinical picture and culture results 4. No fluid overload 5. Lytes Ok
[2019-08-04] MEDS ORDERED: Vancomycin(*) 1,000 MG VIAL IRRIGATION ONE (09:00)
[2019-08-04] MEDS ORDERED: Gentamicin ADULT (*) 40 MG/ML VIAL (2 ML VIAL = 80 MG) IVPB ONE (10:30)
--- NOTE | 2019-08-04 14:56 | PN ---
Subjective Date of Service: 08/04/19 Interval History: Pt felt bilateral flank pain resolved, mainly anterior abdominal pain. No fever, chills overnight. No cloudy PD fluid. Noted Fluid white count 140 overnight. Objective Active Medications: Acetaminophen (Tylenol Tab*) 650 mg PO Q4H PRN PRN Reason: FEVER/HEADACHE Last Admin: 08/04/19 00:18 Dose: 650 mg Albuterol (Ventolin Hfa Inhaler*) 2 puff INH Q4H PRN PRN Reason: SOB/WHEEZING Aspirin (Aspirin 81 Mg Chew Tab*) [facility] Last Admin: 08/04/19 08:09 Dose: 81 mg Atorvastatin Calcium (Lipitor*) 10 mg PO BEDTIME [facility] Last Admin: 08/03/19 21:02 Dose: 10 mg Baclofen (Lioresal Tab*) 10 mg PO BEDTIME [facility] Last Admin: 08/03/19 21:02 Dose: 10 mg Cyanocobalamin (Vitamin B12 Tab*) [facility] [place] Last Admin: 08/04/19 08:09 Dose: 500 mcg Escitalopram Oxalate (Lexapro *) [facility] [place] Last Admin: 08/04/19 08:09 Dose: 10 mg Ceftriaxone Sodium 1 gm/ (Sodium Chloride) 50 mls @ 100 mls/hr IVPB Q24H [facility] Last Admin: 08/03/19 21:02 Dose: 100 mls/hr Ipratropium [place] (Atrovent 0.5 Mg Neb.Iona*) 0.5 mg INH Q6H PRN PRN Reason: SOB/WHEEZING Last Admin: 08/03/19 20:00 Dose: 0.5 mg Levothyroxine Sodium (Synthroid Tab*) 50 mcg PO DAILY@0600 [facility] Last Admin: 08/04/19 05:55 Dose: 50 mcg Lorazepam (Ativan Tab(*)) 0.5 mg PO Q6H PRN PRN Reason: ANXIETY Last Admin: 08/03/19 19:05 Dose: 0.5 mg Magnesium Oxide (Magox 400 Tab*) 400 mg PO QAM [facility] Last Admin: 08/04/19 08:09 Dose: 400 mg Melatonin (Melatonin) 3 mg PO BEDTIME [facility] Last Admin: 08/03/19 21:02 Dose: 3 mg Mometasone Furoate/Formoterol Fumar (Dulera 200/5 Mdi*) 2 puff INH BID [facility] Last Admin: 08/04/19 07:19 Dose: 2 puff Nortriptyline HCl (Pamelor Cap*) 25 mg PO BEDTIME [facility] Last Admin: 08/03/19 21:02 Dose: 25 mg Ondansetron HCl (Zofran Inj*) 4 mg IV Q6H PRN PRN Reason: NAUSEA Last Admin: 08/03/19 18:19 Dose: 4 mg Oxycodone/Acetaminophen (Percocet 5/325 Tab*) 1 tab PO Q6H PRN PRN Reason: PAIN Last Admin: 08/03/19 18:19 Dose: 1 tab Pantoprazole Sodium (Protonix Tab*) 40 mg PO QAM [facility] Last Admin: 08/04/19 08:09 Dose: 40 mg Polyethylene Glycol/Electrolytes (Miralax*) 17 gm PO DAILY PRN PRN Reason: CONSTIPATION Vital Signs - 8 hr 08/04/19 08/04/19 08/04/19 07:15 07:22 08:00 Temperature 98 F Pulse Rate 86 85 Respiratory 20 15 16 Rate Blood Pressure 97/46 (mmHg) O2 Sat by Pulse 99 95 Oximetry 08/04/19 11:15 Temperature 97.8 F Pulse Rate 79 Respiratory 20 Rate Blood Pressure 103/52 (mmHg) O2 Sat by Pulse 98 Oximetry Oxygen Devices in Use Now: Nasal Cannula Exam: Appearance: not in acute distress, but appears uncomfortable Eyes: No Scleral Icterus Ears/Nose/Mouth/Throat: NL Teeth, Lips, Gums Neck: NL Appearance and Movements; NL JVP Respiratory: Symmetrical Chest Expansion and Respiratory Effort Cardiovascular: RRR, no murmur Abdominal: generalized tenderness, mainly on RUQ and LUQ, no rebound tenderness , no rigidity, CVA tenderness neg Lymphatic: No Cervical Adenopathy Extremities: No Edema Result Diagrams: 08/04/19 05:31 08/04/19 05:31 Assess/Plan/Problems-Billing Assessment: 43 y/o female with history of ESRD and polycystic kidney disease, presented with flank pain, gross hematuria, and positive urine culture Ecoli pansensitive , likely ruptured infected cysts leading to peritonitis, also her course complicated with UTI which could or could not be related. Also primary hypothyrodism was found with treatment started. - Patient Problems (1) Ruptured cyst of kidney Current Visit: Yes Status: Acute Code(s): Q61.00 - CONGENITAL RENAL CYST, UNSPECIFIED SNOMED Code(s): 63131628 Comment: complicated with infected cyst likely Hb drop from 18.8->15.9 continue iv ceftriaxone recheck Hb tomorrow symptomatic treatment including pain control (oxycodone, allergic to morphine) (2) Urinary tract infection Current Visit: Yes Status: Acute Comment: E.coli pansensitive UTI continue IV ceftriaxone US kUB no hydronephrosis seen (3) Peritonitis Current Visit: Yes Status: Acute Code(s): K65.9 - PERITONITIS, UNSPECIFIED SNOMED Code(s): 38194611 Comment: Evidenced by elevated peritoneal fluid 140 with neutrophil dorminant , gram stain neg one dose of iv vanco was given overnight start IP amikacin and vacomycin watch abdominal pain (4) Anxiety Current Visit: Yes Status: Acute Code(s): F41.9 - ANXIETY DISORDER, UNSPECIFIED SNOMED Code(s): 69347930 Comment: anxiety attack today, resolved with ativan continue prn ativan, continue Lexapro (5) ESRD (end stage renal disease) on dialysis Current Visit: No Status: Chronic Code(s): N18.6 - END STAGE RENAL DISEASE; Z99.2 - DEPENDENCE ON RENAL DIALYSIS SNOMED Code(s): 386720034 Comment: - continue PD - weight daily, currently under DW (6) DVT prophylaxis Current Visit: No Status: Acute Code(s): ZHX5774 - SNOMED Code(s): 500198295 Comment: ambulatory Status and Disposition: Inpatient Medicine Attestation Documenting Resident: Daphne Chapman Supervising Physician: Partha Moreno Attending/Supervising Physician Comment: Agree with plan as outlined here unless indicated. hematuria/abdominal pain - no urine since yesterday. Abdominal pain better. Both in setting of 9 days untreat e. coli UTI. Associated with elevated cell count from peritoneal fluid. Differential includes peritonitis in setting of cystitic, pyelonephritis, ruptured infected cyst, hemotogenous spread. Now receiving IV abx and IP abx for peritonitis and infection. Trend Hb in setting of hematuria. Attestation: This service has been performed in part by a resident under the direction of a teaching physician.I, Partha Moreno, performed the service, or was physically present during the critical, or carreon portions of the service, furnished by the resident. I participated in the management of the patient.
[2019-08-04] MEDS: Ondansetron INJ* 2 MG/ML VIAL IV PRN (16:40)
[2019-08-04] MEDS: Polyethylene Glycol 3350* 17 GM PACKET PO PRN (17:25)
[2019-08-04] MEDS: Ipratropium 0.5MG/2.5ML NEB* 0.5 MG/2.5 ML NEB.SOLN INH PRN (20:30)
[2019-08-04] MEDS: Melatonin 3 MG TAB PO SCH (20:39)
[2019-08-04] MEDS: Baclofen TAB* 10 MG PO SCH (20:39)
[2019-08-04] MEDS: Atorvastatin* 10 MG TAB PO SCH (20:39)
[2019-08-04] MEDS: Nortriptyline CAP* 25 MG PO SCH (20:39)
[2019-08-04] MEDS: cefTRIAXone(*) 1 GM in NS 0.9% 50 ML* 50 ML IVPB SCH (20:40)
[2019-08-05] MEDS: Levothyroxine TAB* 50 MCG TAB PO SCH (05:40)
[2019-08-05] MEDS: Ondansetron INJ* 2 MG/ML VIAL IV PRN ×3 (05:46→17:20)
[2019-08-05 06:00] LABS: Hematocrit 44 % (35-47); Hemoglobin 14.9 g/dL (12.0-16.0); Mean Corpuscular HGB Conc 34 g/dL (31-36); Mean Corpuscular Hemoglobin 33 pg (27-31); Mean Corpuscular Volume 98 fL (80-97); Mean Platelet Volume 8.5 fL (7.4-10.4); Platelet Count 212 10^3/uL (150-450); Red Blood Count 4.47 10^6 /uL (3.70-4.87); Red Cell Distribution Width 17 % (10-15); White Blood Count 14.5 10^3/uL (3.5-10.8)
[2019-08-05 06:37] LABS: ABS Basophils 0.1 10^3/ul (0-0.2); ABS Eosinophils 0.1 10^3/ul (0-0.6); ABS Lymphocytes 0.6 10^3/ul (1.0-4.8); ABS Monocytes 1.8 10^3/ul (0-0.8); ABS Neutrophils 11.9 10^3/ul (1.5-7.7); Eosinophil % 0.7 %
[2019-08-05] MEDS: Escitalopram * 10 MG TAB PO SCH (08:31)
[2019-08-05] MEDS: Magnesium Oxide TAB* 400 MG PO SCH (08:31)
[2019-08-05] MEDS: Pantoprazole TAB * 40 MG TAB PO SCH (08:31)
[2019-08-05] MEDS: Aspirin 81 mg CHEW TAB* 81 MG TAB.CHEW PO SCH (08:31)
[2019-08-05] MEDS: Mometasone/Formoter 200/5 MDI INH SCH ×2 (08:36→19:57)
[2019-08-05] MEDS: Ipratropium 0.5MG/2.5ML NEB* 0.5 MG/2.5 ML NEB.SOLN INH PRN ×2 (08:36→16:20)
--- NOTE | 2019-08-05 09:23 | PN ---
Progress Note - Progress Note Date of Service: 08/05/19 Note: Nephrology follow-up note 08/05/[address] 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 coli PD related peritonitis, WBC count 140, gm stain -ve Cx -ve On IV ceftriaxone On IP Vanc 2 gm every 5-7 days & s/p 1 dose of IP Gent 80 mg yesterday The cause of PD related peritonitis here is unclear, but note that her PD Catheter was handled in the ED by ED nurse to take a specimen, and the fact that she was on IV ceftriaxone and WBC was still 140, more than a day later, argues against gram-negative PD related peritonitis. This is likely gram- positive for such we'll continue IV vanc. Ruptured polycystic kidney cyst may caused peritonitis !? PD fluid Cx -ve after 1 day PD regimen: Night CCPD, Duration 10 Hr, Volume 12L, 5 Exchanges of 2.4 L fill volume, days dry. Alternating 1.5% Dextrose. Her UF 2.6 L yesterday and feels dizzy. Pain is better, but still c/c of constipation, scheduled for enema PD is continued while inpatient. Current medications: Acetaminophen (Tylenol Tab*) 650 mg PO Q4H PRN PRN Reason: FEVER/HEADACHE Last Admin: 08/04/19 00:18 Dose: 650 mg Albuterol (Ventolin Hfa Inhaler*) 2 puff INH Q4H PRN PRN Reason: SOB/WHEEZING Aspirin (Aspirin 81 Mg Chew Tab*) 81 mg PO QAM [facility] Last Admin: 08/05/19 08:31 Dose: 81 mg Atorvastatin Calcium (Lipitor*) 10 mg PO BEDTIME [facility] Last Admin: 08/04/19 20:39 Dose: 10 mg Baclofen (Lioresal Tab*) 10 mg PO BEDTIME [facility] Last Admin: 08/04/19 20:39 Dose: 10 mg Cyanocobalamin (Vitamin B12 Tab*) 500 mcg PO QAM [facility] Last Admin: 08/04/19 08:09 Dose: 500 mcg Escitalopram Oxalate (Lexapro *) 10 mg PO QAM [facility] Last Admin: 08/05/19 08:31 Dose: 10 mg Ceftriaxone Sodium 1 gm/ (Sodium Chloride) 50 mls @ 100 mls/hr IVPB Q24H [facility] Last Admin: 08/04/19 20:40 Dose: 100 mls/hr Ipratropium [place] (Atrovent 0.5 Mg Neb.Iona*) 0.5 mg INH Q6H PRN PRN Reason: SOB/WHEEZING Last Admin: 08/05/19 08:36 Dose: 0.5 mg Levothyroxine Sodium (Synthroid Tab*) 50 mcg PO DAILY@0600 [facility] Last Admin: 08/05/19 05:40 Dose: 50 mcg Lorazepam (Ativan Tab(*)) 0.5 mg PO Q6H PRN PRN Reason: ANXIETY Last Admin: 08/03/19 19:05 Dose: 0.5 mg Magnesium Oxide (Magox 400 Tab*) [facility] [place] [facility] Last Admin: 08/05/19 08:31 Dose: 400 mg Melatonin (Melatonin) 3 mg PO BEDTIME [facility] Last Admin: 08/04/19 20:39 Dose: 3 mg Mometasone Furoate/Formoterol Fumar (Dulera 200/5 Mdi*) 2 puff INH BID [facility] Last Admin: 08/05/19 08:36 Dose: 2 puff Nortriptyline HCl (Pamelor Cap*) 25 mg PO BEDTIME [facility] Last Admin: 08/04/19 20:39 Dose: 25 mg Ondansetron HCl (Zofran Inj*) 4 mg IV Q6H PRN PRN Reason: NAUSEA Last Admin: 08/05/19 05:46 Dose: 4 mg Oxycodone/Acetaminophen (Percocet 5/325 Tab*) 1 tab PO Q6H PRN PRN Reason: PAIN Last Admin: 08/03/19 18:19 Dose: 1 tab Pantoprazole Sodium (Protonix Tab*) 40 mg PO QAM [facility] Last Admin: 08/05/19 08:31 Dose: 40 mg Polyethylene Glycol/Electrolytes (Miralax*) 17 gm PO DAILY PRN PRN Reason: CONSTIPATION Last Admin: 08/04/19 17:25 Dose: 17 gm IP Vancomycin 2 gm 08/04 Objective: Vital Signs: Temp Pulse Resp BP Pulse Ox 98.4 F 81 16 90/58 95 08/05/19 07:29 08/05/19 08:39 08/05/19 08:39 08/05/19 07:29 08/05/19 08:39 Constitutional Alert Oriented x 3 Abdomen SoftAbdomen No Ascites. PD Cath. No tenderness Heart: NSR,No LE Edema, No murmur Lungs: Clear to auscultation, No Crackles Extremities: No edema, rash Available Laboratory Reviewed Assessment and Plan: 1. PD. ESRD. Continue same prescription. 2. BP dropped, high UF despite 1.5% Dextrose, low BP is symptomatic c/c of dizziness: May give IV NS Bolus, 250-500 one time, rather than continuous IVF. She's not on BP medications 3. UTI on IV ceftriaxone. 4. PD related peritonitis: Empiric ABx: IP Vancomycin & fu cultures. Repeat WBCs in PD fluid tomorrow 5. Lytes Ok 6. Case discussed with medical device sales consultant
[2019-08-05] MEDS: Cyanocobalamin TAB* 500 MCG PO SCH (10:03)
[2019-08-05] MEDS ORDERED: NS 0.9% 500 ML* 500 ML IV SCH ×2 (12:00→13:58)
[2019-08-05] MEDS ORDERED: NS 0.9% 500 ML* 500 ML IV ONE (14:01)
[2019-08-05] MEDS ORDERED: Sodium Phosphate ADULT ENEMA* 118 ml bottle PR ONE (14:02)
[2019-08-05] MEDS ORDERED: Bisacodyl SUPP* 10 MG SUPP PR ONE (17:25)
[2019-08-05] MEDS: Acetaminophen TAB* 325 MG PO PRN (18:05)
--- NOTE | 2019-08-05 18:07 | PN ---
Subjective Date of Service: 08/05/19 Interval History: [place] dizzy, sweating; no chest pain, no palpitation. spot glucose normal sBP in 90s UF 2.7L yesterday Objective Active Medications: Acetaminophen (Tylenol Tab*) 650 mg PO Q4H PRN PRN Reason: FEVER/HEADACHE Last Admin: 08/04/19 00:18 Dose: 650 mg Albuterol/Ipratropium (Duoneb (Albuterol 2.5 Mg/Ipratropium 0.5 Mg)) 1 neb INH Q4H PRN PRN Reason: SOB/WHEEZING Aspirin (Aspirin 81 Mg Chew Tab*) 81 mg PO QAM [facility] Last Admin: 08/05/19 08:31 Dose: 81 mg Atorvastatin Calcium (Lipitor*) 10 mg PO BEDTIME [facility] Last Admin: 08/04/19 20:39 Dose: 10 mg Baclofen (Lioresal Tab*) 10 mg PO BEDTIME [facility] Last Admin: 08/04/19 20:39 Dose: 10 mg Cyanocobalamin (Vitamin B12 Tab*) [facility] [place] Last Admin: 08/05/19 10:03 Dose: 500 mcg Escitalopram Oxalate (Lexapro *) 10 mg PO QAM [facility] Last Admin: 08/05/19 08:31 Dose: 10 mg Ceftriaxone Sodium 1 gm/ (Sodium Chloride) 50 mls @ 100 mls/hr IVPB Q24H [facility] Last Admin: 08/04/19 20:40 Dose: 100 mls/hr Levothyroxine Sodium (Synthroid Tab*) 50 mcg PO DAILY@0600 [facility] Last Admin: 08/05/19 05:40 Dose: 50 mcg Lorazepam (Ativan Tab(*)) 0.5 mg PO Q6H PRN PRN Reason: ANXIETY Last Admin: 08/03/19 19:05 Dose: 0.5 mg Magnesium Oxide (Magox 400 Tab*) [facility] [place] Last Admin: 08/05/19 08:31 Dose: 400 mg Melatonin (Melatonin) 3 mg PO BEDTIME [facility] Last Admin: 08/04/19 20:39 Dose: 3 mg Mometasone Furoate/Formoterol Fumar (Dulera 200/5 Mdi*) 2 puff INH BID [facility] Last Admin: 08/05/19 08:36 Dose: 2 puff Nortriptyline HCl (Pamelor Cap*) 25 mg PO BEDTIME [facility] Last Admin: 08/04/19 20:39 Dose: 25 mg Ondansetron HCl (Zofran Inj*) 4 mg IV Q6H PRN PRN Reason: NAUSEA Last Admin: 08/05/19 17:20 Dose: 4 mg Oxycodone/Acetaminophen (Percocet 5/325 Tab*) 1 tab PO Q6H PRN PRN Reason: PAIN Last Admin: 08/03/19 18:19 Dose: 1 tab Pantoprazole Sodium (Protonix Tab*) 40 mg PO QAM [facility] Last Admin: 08/05/19 08:31 Dose: 40 mg Polyethylene Glycol/Electrolytes (Miralax*) 17 gm PO DAILY PRN PRN Reason: CONSTIPATION Last Admin: 08/04/19 17:25 Dose: 17 gm Vital Signs - 8 hr 08/05/19 08/05/19 08/05/19 11:27 11:30 15:15 Temperature 94.9 F 97.3 F 98.4 F Pulse Rate 81 79 Respiratory 18 Rate Blood Pressure 114/52 123/48 (mmHg) O2 Sat by Pulse 100 98 Oximetry 08/05/19 16:21 Temperature Pulse Rate 83 Respiratory 18 Rate Blood Pressure (mmHg) O2 Sat by Pulse 98 Oximetry Oxygen Devices in Use Now: Nasal Cannula Exam: Appearance: sweating, uncomfortable looking Eyes: No Scleral Icterus Ears/Nose/Mouth/Throat: NL Teeth, Lips, Gums Neck: NL Appearance and Movements; NL JVP Respiratory: Symmetrical Chest Expansion and Respiratory Effort Cardiovascular: RRR, no murmur Abdominal: mild tenderness, no cva tenderness Lymphatic: No Cervical Adenopathy Extremities: No Edema Result Diagrams: 08/05/19 05:45 08/04/19 05:31 Assess/Plan/Problems-Billing Assessment: 43 y/o female with history of ESRD and polycystic kidney disease, presented with flank pain, gross hematuria, and positive urine culture Ecoli pansensitive , likely ruptured infected cysts complicated with peritonitis. Also primary hypothyrodism was found with treatment started. - Patient Problems (1) Hypotension Current Visit: Yes Status: Acute Comment: due to overdialysis in the setting of infection, UF 2.7l ytd IV 500ml NS today with improvement (2) Ruptured cyst of kidney Current Visit: Yes Status: Acute Code(s): Q61.00 - CONGENITAL RENAL CYST, UNSPECIFIED SNOMED Code(s): 01717195 Comment: complicated with infected cyst Hb stable now watch hematuria symptomatic treatment including pain control (3) Urinary tract infection Current Visit: Yes Status: Acute Comment: E.coli pansensitive UTI continue IV ceftriaxone, aim to complete 7 days in total (4) Peritonitis Current Visit: Yes Status: Acute Code(s): K65.9 - PERITONITIS, UNSPECIFIED SNOMED Code(s): 62597246 Comment: Evidenced by elevated peritoneal fluid 140 with neutrophil dorminant , gram stain neg on IP gentamycin and vancomycin now will repeat fluid cell count tomorrow as intructed by asbestos siding installer appreciate nephrology input (5) Anxiety Current Visit: Yes Status: Acute Code(s): F41.9 - ANXIETY DISORDER, UNSPECIFIED SNOMED Code(s): 51049313 Comment: anxiety attack during hospitalization continue prn ativan, continue Lexapro (6) ESRD (end stage renal disease) on dialysis Current Visit: No Status: Chronic Code(s): N18.6 - END STAGE RENAL DISEASE; Z99.2 - DEPENDENCE ON RENAL DIALYSIS SNOMED Code(s): 639891307 Comment: - continue PD as per nephrology - weight daily (7) DVT prophylaxis Current Visit: No Status: Acute Code(s): AGN6267 - SNOMED Code(s): 244438087 Comment: ambulatory Status and Disposition: Inpatient Medicine Attestation Documenting Resident: Daphne Chapman Supervising Physician: Partha Moreno Attending/Supervising Physician Comment: Agree with plan as outlined in Dr. Atkinson note from today unless indicated here. Pt feeling better but a little lightheaded. Feels thirsty and dehydrated. 500cc IVF bolus c/w CTX for infection (cystitis v pyelo v infected cysts) Hematuria improving per ; H/H stable IP Abx for suspected peritonitis; cultures remain negative Attestation: This service has been performed in part by a resident under the direction of a teaching physician.I, Partha Moreno, performed the service, or was physically present during the critical, or carreon portions of the service, furnished by the resident. I participated in the management of the patient.
[2019-08-05] MEDS: Mupirocin 2% OINT* TUBE TOPICAL SCH ×2 (18:43→22:00)
[2019-08-05] MEDS: Heparin DIALYSIS ONLY(*) 1,000 UNITS/ML VIAL DIALYSIS ONE ×2 (18:43→18:50)
[2019-08-05] MEDS: Albuterol/Ipratropium NEB.SOL* Albuterol 2.5 MG/Ipratropium 0.5 MG 3 ML INH PRN (19:57)
[2019-08-05] MEDS ORDERED: Heparin DIALYSIS ONLY(*) 1,000 UNITS/ML VIAL DIALYSIS ONE (21:00)
[2019-08-05] MEDS: Atorvastatin* 10 MG TAB PO SCH (22:00)
[2019-08-05] MEDS: Baclofen TAB* 10 MG PO SCH (22:00)
[2019-08-05] MEDS: LORazepam TAB(*) 0.5 MG PO PRN (22:00)
[2019-08-05] MEDS: Melatonin 3 MG TAB PO SCH (22:00)
[2019-08-05] MEDS: cefTRIAXone(*) 1 GM in NS 0.9% 50 ML* 50 ML IVPB SCH (22:01)
[2019-08-05] MEDS: Nortriptyline CAP* 25 MG PO SCH (22:33)
[2019-08-06] MEDS: Ondansetron INJ* 2 MG/ML VIAL IV PRN ×2 (05:20→12:35)
[2019-08-06] MEDS: Levothyroxine TAB* 50 MCG TAB PO SCH (05:24)
[2019-08-06] MEDS: Acetaminophen TAB* 325 MG PO PRN ×2 (07:29→16:50)
[2019-08-06] MEDS: Mometasone/Formoter 200/5 MDI INH SCH ×2 (07:53→19:19)
[2019-08-06] MEDS: Albuterol/Ipratropium NEB.SOL* Albuterol 2.5 MG/Ipratropium 0.5 MG 3 ML INH PRN ×3 (07:53→19:23)
[2019-08-06] MEDS: Escitalopram * 10 MG TAB PO SCH (08:24)
[2019-08-06] MEDS: Aspirin 81 mg CHEW TAB* 81 MG TAB.CHEW PO SCH (08:24)
[2019-08-06] MEDS: Cyanocobalamin TAB* 500 MCG PO SCH (08:24)
[2019-08-06] MEDS: Magnesium Oxide TAB* 400 MG PO SCH (08:24)
[2019-08-06] MEDS: Pantoprazole TAB * 40 MG TAB PO SCH (08:24)
[2019-08-06] MEDS: Mupirocin 2% OINT* TUBE TOPICAL SCH (08:31)
[2019-08-06 08:35] LABS: Hematocrit 43 % (35-47); Hemoglobin 14.5 g/dL (12.0-16.0); Mean Corpuscular HGB Conc 33 g/dL (31-36); Mean Corpuscular Hemoglobin 33 pg (27-31); Mean Corpuscular Volume 98 fL (80-97); Mean Platelet Volume 8.3 fL (7.4-10.4); Platelet Count 187 10^3/uL (150-450); Red Blood Count 4.42 10^6 /uL (3.70-4.87); Red Cell Distribution Width 17 % (10-15); White Blood Count 15.9 10^3/uL (3.5-10.8)
[2019-08-06 09:07] LABS: Anion Gap 19 mmol/L (2-11); CO2 Carbon Dioxide 17 mmol/L (22-32); Calcium 8.4 mg/dL (8.6-10.3); Chloride 90 mmol/L (101-111); Sodium 126 mmol/L (135-145)
[2019-08-06 09:10] LABS: ABS Basophils 0.1 10^3/ul (0-0.2); ABS Eosinophils 0.1 10^3/ul (0-0.6); ABS Lymphocytes 0.5 10^3/ul (1.0-4.8); ABS Monocytes 1.2 10^3/ul (0-0.8); ABS Neutrophils 14.1 10^3/ul (1.5-7.7); Eosinophil % 0.4 %; Nucleated Red Blood Cells % 0.1
[2019-08-06 09:12] LABS: BUN/Creatinine Ratio 6.8 (8-20); Blood Urea Nitrogen 69 mg/dL (6-24); EGFR African American 5.1 (>60); EGFR Non-African American 4.2 (>60); Glucose 112 mg/dL (70-100)
[2019-08-06 09:18] LABS: Body Fluid Source Peritonial Fluid
[2019-08-06 09:57] LABS: Body Fluid Mono 23 %
[2019-08-06] MEDS: Meclizine TAB* 12.5 MG PO PRN (10:19)
[2019-08-06] MEDS ORDERED: Heparin DIALYSIS ONLY(*) 1,000 UNITS/ML VIAL DIALYSIS ONE (12:00)
[2019-08-06 12:47] LABS: BUN/Creatinine Ratio 6.9 (8-20); Calcium 9.2 mg/dL (8.6-10.3); EGFR African American 5.2 (>60); EGFR Non-African American 4.3 (>60); Potassium 4.3 mmol/L (3.5-5.0)
--- NOTE | 2019-08-06 13:48 | PN ---
Progress Note - Progress Note Date of Service: 08/06/19 Note: Date of Service: 08/06/19 In patient PD note By Dr. Medina, [facility] Nephrology ADPKD, ESRD on PD UTI +ve Ucx E. coli on IV Rocephin plan for 14-21 days PD related peritonitis, WBC count 140, Cx -ve. Improved clinically & WBC count today 34. On IP Vanc 2 gm every 5-7 days. 1st dose 08/04 PD regimen: Night CCPD, Duration 10 Hr., Volume 12L, 5 Exchanges of 2.4 L fill volume, days dry. Alternating 1.5% Dextrose. Clarification, upon questioning she said her UF 2.6-2.7L, but that was after 2.5 fill. So her UF is only 300-400 cc/d, which is barely acceptable. She has no evidence of fluid overload, so 1.5% Dextrose is Ok. She c/c of Vertigo, she was on Meclizine at home, hasn't been started yet! Her BP today 130/75 Ok Constipation, better after enema PD continued while inpatient same prescription. Current medications: Acetaminophen (Tylenol Tab*) 650 mg PO Q4H PRN PRN Reason: FEVER/HEADACHE Last Admin: 08/06/19 07:29 Dose: 650 mg Albuterol/Ipratropium (Duoneb (Albuterol 2.5 Mg/Ipratropium 0.5 Mg)) 1 neb INH Q4H PRN PRN Reason: SOB/WHEEZING Last Admin: 08/06/19 07:53 Dose: 1 neb Aspirin (Aspirin 81 Mg Chew Tab*) 81 mg PO QAM [facility] Last Admin: 08/06/19 08:24 Dose: 81 mg Atorvastatin Calcium (Lipitor*) 10 mg PO BEDTIME [facility] Last Admin: 08/05/19 22:00 Dose: 10 mg Baclofen (Lioresal Tab*) 10 mg PO BEDTIME [facility] Last Admin: 08/05/19 22:00 Dose: 10 mg Cyanocobalamin (Vitamin B12 Tab*) 500 mcg PO QAM [facility] Last Admin: 08/06/19 08:24 Dose: 500 mcg Escitalopram Oxalate (Lexapro *) 10 mg PO QAM [facility] Last Admin: 08/06/19 08:24 Dose: 10 mg Ceftriaxone Sodium 1 gm/ (Sodium Chloride) 50 mls @ 100 mls/hr IVPB Q24H [facility] Last Admin: 08/05/19 22:01 Dose: 100 mls/hr Levothyroxine Sodium (Synthroid Tab*) 50 mcg PO DAILY@0600 [facility] Last Admin: 08/06/19 05:24 Dose: 50 mcg Lorazepam (Ativan Tab(*)) 0.5 mg PO Q6H PRN PRN Reason: ANXIETY Last Admin: 08/05/19 22:00 Dose: 0.5 mg Magnesium Oxide (Magox 400 Tab*) 400 mg PO QAM [facility] Last Admin: 08/06/19 08:24 Dose: 400 mg Meclizine HCl (Antivert Tab*) 12.5 mg PO Q8HR PRN PRN Reason: DIZZINESS Last Admin: 08/06/19 10:19 Dose: 12.5 mg Melatonin (Melatonin) 3 mg PO BEDTIME [facility] Last Admin: 08/05/19 22:00 Dose: 3 mg Mometasone Furoate/Formoterol Fumar (Dulera 200/5 Mdi*) 2 puff INH BID [facility] Last Admin: 08/06/19 07:53 Dose: 2 puff Mupirocin (Bactroban 2 % Oint*) 1 applic TOPICAL DAILY [facility] Last Admin: 08/06/19 08:31 Dose: 1 dose Nortriptyline HCl (Pamelor Cap*) 25 mg PO BEDTIME [facility] Last Admin: 08/05/19 22:33 Dose: 25 mg Ondansetron HCl (Zofran Inj*) 4 mg IV Q6H PRN PRN Reason: NAUSEA Last Admin: 08/06/19 12:35 Dose: 4 mg Oxycodone/Acetaminophen (Percocet 5/325 Tab*) 1 tab PO Q6H PRN PRN Reason: PAIN Last Admin: 08/03/19 18:19 Dose: 1 tab Pantoprazole Sodium (Protonix Tab*) 40 mg PO QAM [facility] Last Admin: 08/06/19 08:24 Dose: 40 mg Polyethylene Glycol/Electrolytes (Miralax*) 17 gm PO DAILY PRN PRN Reason: CONSTIPATION Last Admin: 08/04/19 17:25 Dose: 17 gm IP Heparin 500u/L & IP Vancomycin as above Objective: Vital Signs: Temp Pulse Resp BP Pulse Ox 97.9 F 86 18 135/81 100 08/06/19 07:15 08/06/19 11:42 08/06/19 08:00 08/06/19 11:42 08/06/19 07:55 Constitutional Alert Oriented x 3 Abdomen SoftAbdomen No Ascites. PD Cath. No tenderness Heart: NSR,No LE Edema, No murmur Lungs: Clear to auscultation, No Crackles Extremities: No edema, rash Available Laboratory Reviewed ABG pH 7.41 (7.35-7.45) 08/02/19 21:20 ABG HCO3 20.2 mmol/L (19-31) 08/02/19 21:20 Sodium 125 mmol/L (135-145) L 08/06/19 12:12 Potassium 4.3 mmol/L (3.5-5.0) 08/06/19 12:12 BUN 69 mg/dL (6-24) H 08/06/19 12:12 Creatinine 9.95 mg/dL (0.51-0.95) H 08/06/19 12:12 Calcium 9.2 mg/dL (8.6-10.3) 08/06/19 12:12 Magnesium 2.4 mg/dL (1.9-2.7) 08/03/19 05:30 AST 11 U/L (13-39) L 08/02/19 20:13 ALT 8 U/L (7-52) 08/02/19 20:13 Assessment and Plan: 1. PD. ESRD: Same prescription. 2. BP Ok today, but R/O Orthostasis. May use 250-300 cc IV Bolus if symptomatic Orthostasis 3. UTI on IV ceftriaxone, managed by primary team, has rising WBCs!! 4. PD related peritonitis: Improving with dropping PD WBCs 140---->34 Same IP Vancomycin & cultures so far -ve. 5. Lytes Ok 6. Case discussed with primary team
--- NOTE | 2019-08-06 16:05 | PN ---
Subjective Date of Service: 08/06/19 Interval History: Patient complained of dizziness, generally "crappy" this morning. Her admitted she improved and showered yesterday after receiving normal saline. But she started to feel dizzy since this morning. She had history of vertigo at home which resolved with meclizine. She felt the dizziness was about the same as what she had at home, with spinning sensation, but it did get worse when she sat up. No hypotension overnight. Urine turned pink now. Objective Active Medications: Acetaminophen (Tylenol Tab*) 650 mg PO Q4H PRN PRN Reason: FEVER/HEADACHE Last Admin: 08/06/19 07:29 Dose: 650 mg Albuterol/Ipratropium (Duoneb (Albuterol 2.5 Mg/Ipratropium 0.5 Mg)) 1 neb INH Q4H PRN PRN Reason: SOB/WHEEZING Last Admin: 08/06/19 07:53 Dose: 1 neb Aspirin (Aspirin 81 Mg Chew Tab*) 81 mg PO [facility] Last Admin: 08/06/19 08:24 Dose: 81 mg Atorvastatin Calcium (Lipitor*) 10 mg PO BEDTIME [facility] Last Admin: 08/05/19 22:00 Dose: 10 mg Baclofen (Lioresal Tab*) 10 mg PO BEDTIME [facility] Last Admin: 08/05/19 22:00 Dose: 10 mg Cyanocobalamin (Vitamin B12 Tab*) [facility] Last Admin: 08/06/19 08:24 Dose: 500 mcg Escitalopram Oxalate (Lexapro *) 10 mg PO [facility] Last Admin: 08/06/19 08:24 Dose: 10 mg Ceftriaxone Sodium 1 gm/ (Sodium Chloride) 50 mls @ 100 mls/hr IVPB Q24H [facility] Last Admin: 08/05/19 22:01 Dose: 100 mls/hr Levothyroxine Sodium (Synthroid Tab*) 50 mcg PO DAILY@0600 [facility] Last Admin: 08/06/19 05:24 Dose: 50 mcg Lorazepam (Ativan Tab(*)) 0.5 mg PO Q6H PRN PRN Reason: ANXIETY Last Admin: 08/05/19 22:00 Dose: 0.5 mg Magnesium Oxide (Magox 400 Tab*) 400 mg PO [facility] Last Admin: 08/06/19 08:24 Dose: 400 mg Meclizine HCl (Antivert Tab*) 12.5 mg PO Q8HR PRN PRN Reason: DIZZINESS Last Admin: 08/06/19 10:19 Dose: 12.5 mg Melatonin (Melatonin) 3 mg PO BEDTIME [facility] Last Admin: 08/05/19 22:00 Dose: 3 mg Mometasone Furoate/Formoterol Fumar (Dulera 200/5 Mdi*) 2 puff INH BID [facility] Last Admin: 08/06/19 07:53 Dose: 2 puff Mupirocin (Bactroban 2 % Oint*) 1 applic TOPICAL DAILY [facility] Last Admin: 08/06/19 08:31 Dose: 1 dose Nortriptyline HCl (Pamelor Cap*) 25 mg PO BEDTIME [facility] Last Admin: 08/05/19 22:33 Dose: 25 mg Ondansetron HCl (Zofran Odt Tab*) 4 mg SL Q6H PRN PRN Reason: NAUSEA/VOMITING Oxycodone/Acetaminophen (Percocet 5/325 Tab*) 1 tab PO Q6H PRN PRN Reason: PAIN Last Admin: 08/03/19 18:19 Dose: 1 tab Pantoprazole Sodium (Protonix Tab*) 40 mg PO QAM [facility] Last Admin: 08/06/19 08:24 Dose: 40 mg Polyethylene Glycol/Electrolytes (Miralax*) 17 gm PO DAILY PRN PRN Reason: CONSTIPATION Last Admin: 08/04/19 17:25 Dose: 17 gm Vital Signs - 8 hr 08/06/19 08/06/19 08/06/19 07:55 08:00 11:42 Temperature Pulse Rate 85 86 Respiratory 20 18 Rate Blood Pressure 125/56 (mmHg) O2 Sat by Pulse 100 Oximetry 08/06/19 15:15 Temperature 97.8 F Pulse Rate 78 Respiratory 18 Rate Blood Pressure 130/57 (mmHg) O2 Sat by Pulse 100 Oximetry Oxygen Devices in Use Now: Nasal Cannula Exam: Appearance: sweating, uncomfortable looking Eyes: No Scleral Icterus Ears/Nose/Mouth/Throat: NL Teeth, Lips, Gums Neck: NL Appearance and Movements; NL JVP Respiratory: Symmetrical Chest Expansion and Respiratory Effort Cardiovascular: RRR, no murmur Abdominal: no tenderness , mild left cva tenderness Lymphatic: No Cervical Adenopathy Extremities: No Edema Result Diagrams: 08/06/19 08:09 08/06/19 12:12 Assess/Plan/Problems-Billing Assessment: 43 y/o female with history of ESRD and polycystic kidney disease, presented with flank pain, gross hematuria, and positive urine culture Ecoli pansensitive , with no unified diagnosis currently. One assumption is infected ruptured cyst causing peritonitis. Also primary hypothyrodism was found with treatment started. - Patient Problems (1) Vertigo Current Visit: Yes Status: Acute Code(s): R42 - DIZZINESS AND GIDDINESS SNOMED Code(s): 749014862 Comment: - Likely peripheral considering spinning in nature, avoidance of visual clue - over UF leading to dizziness also likely - orthostatic bp today - start meclizine (2) Hypotension Current Visit: Yes Status: Acute Comment: resolved due to overdialysis in the setting of infection IV 500ml NS today with improvement (3) Ruptured cyst of kidney Current Visit: Yes Status: Acute Code(s): Q61.00 - CONGENITAL RENAL CYST, UNSPECIFIED SNOMED Code(s): 37806386 Comment: complicated with infected cyst Hb stable now watch hematuria symptomatic treatment including pain control (4) Urinary tract infection Current Visit: Yes Status: Acute Comment: E.coli pansensitive UTI continue IV ceftriaxone, aim to complete 7 days in total (5) Peritonitis Current Visit: Yes Status: Acute Code(s): K65.9 - PERITONITIS, UNSPECIFIED SNOMED Code(s): 99283755 Comment: Evidenced by elevated peritoneal fluid 140 with neutrophil dorminant , gram stain neg on IP vancomycin now appreciate nephrology input consult ID today (6) Anxiety Current Visit: Yes Status: Acute Code(s): F41.9 - ANXIETY DISORDER, UNSPECIFIED SNOMED Code(s): 87549925 Comment: anxiety attack during hospitalization continue prn ativan, continue Lexapro (7) ESRD (end stage renal disease) on dialysis Current Visit: No Status: Chronic Code(s): N18.6 - END STAGE RENAL DISEASE; Z99.2 - DEPENDENCE ON RENAL DIALYSIS SNOMED Code(s): 645017050 Comment: - continue PD as per nephrology - weight daily (8) DVT prophylaxis Current Visit: No Status: Acute Code(s): TNI1030 - SNOMED Code(s): 283261379 Comment: ambulatory Status and Disposition: Inpatient Medicine. PT/OT. Attestation Documenting Resident: Daphne Chapman Supervising Physician: Partha Moreno Attending/Supervising Physician Comment: Agree with plan as outlined in Dr. Chapman's note from today unless indicated here. Feels unwell. [place] better after fluids yesterday, was out of bed and showered. Vertigo - trial meclizine but hyponatremia/hypochloremia, positive orthostatic vital signs lead me to believe she is hypovolemic in setting of infection. Fluids tomorrow if not improved or sodium remains low. ID - cystitis v. pyelnephritis v infected cyst with likely peritonitis. Suspect pyelo given bilateral pain on presentation and positive urine culture. CTX for longer course to tx pyelonephritis, IP abx per nephrology teams recommendations. ID consult today and plan CT to eval for etiology or communication that may have led to peritonitis. Hematuria - pyelo v cystitis v hemorrhagic cysts. Improving Attestation: This service has been performed in part by a resident under the direction of a teaching physician.I, Partha Moreno, performed the service, or was physically present during the critical, or carreon portions of the service, furnished by the resident. I participated in the management of the patient.
[2019-08-06] MEDS ORDERED: Iodixanol* (CONTRAST) 320 MG/ML 100 ML SDV IV ONE (16:45)
[2019-08-06] MEDS: Atorvastatin* 10 MG TAB PO SCH (20:24)
[2019-08-06] MEDS: Nortriptyline CAP* 25 MG PO SCH (20:24)
[2019-08-06] MEDS: cefTRIAXone(*) 1 GM in NS 0.9% 50 ML* 50 ML IVPB SCH (20:24)
[2019-08-06] MEDS: Melatonin 3 MG TAB PO SCH (20:24)
[2019-08-06] MEDS: Baclofen TAB* 10 MG PO SCH (20:24)
[2019-08-06] MEDS: Ondansetron ODT TAB* 4 MG SL PRN (20:57)
[2019-08-07] MEDS: Ondansetron ODT TAB* 4 MG SL PRN ×2 (03:48→09:03)
[2019-08-07] MEDS: Acetaminophen TAB* 325 MG PO PRN ×3 (03:55→14:05)
[2019-08-07] MEDS: Albuterol/Ipratropium NEB.SOL* Albuterol 2.5 MG/Ipratropium 0.5 MG 3 ML INH PRN ×2 (04:25→20:52)
[2019-08-07] MEDS: Levothyroxine TAB* 50 MCG TAB PO SCH (05:01)
[2019-08-07] MEDS: Mometasone/Formoter 200/5 MDI INH SCH ×2 (07:41→20:53)
[2019-08-07] MEDS: Aspirin 81 mg CHEW TAB* 81 MG TAB.CHEW PO SCH (08:15)
[2019-08-07] MEDS: Pantoprazole TAB * 40 MG TAB PO SCH (08:16)
[2019-08-07] MEDS: Cyanocobalamin TAB* 500 MCG PO SCH (08:16)
[2019-08-07] MEDS: Magnesium Oxide TAB* 400 MG PO SCH (08:16)
[2019-08-07] MEDS: Escitalopram * 10 MG TAB PO SCH (08:16)
[2019-08-07 10:34] LABS: Hematocrit 42 % (35-47); Hemoglobin 14.4 g/dL (12.0-16.0); Mean Corpuscular HGB Conc 34 g/dL (31-36); Mean Corpuscular Hemoglobin 33 pg (27-31); Mean Corpuscular Volume 97 fL (80-97); Mean Platelet Volume 8.1 fL (7.4-10.4); Platelet Count 165 10^3/uL (150-450); Red Blood Count 4.37 10^6 /uL (3.70-4.87); Red Cell Distribution Width 17 % (10-15); White Blood Count 16.3 10^3/uL (3.5-10.8)
[2019-08-07 10:49] LABS: BUN/Creatinine Ratio 7.4 (8-20); Calcium 8.9 mg/dL (8.6-10.3); EGFR African American 5.3 (>60); EGFR Non-African American 4.4 (>60)
[2019-08-07 11:01] LABS: ABS Basophils 0.1 10^3/ul (0-0.2); ABS Lymphocytes 0.5 10^3/ul (1.0-4.8); ABS Monocytes 1.1 10^3/ul (0-0.8); ABS Neutrophils 14.7 10^3/ul (1.5-7.7); Eosinophil % 0.2 %; Lymphocyte % 2.8 %
[2019-08-07] MEDS: Mupirocin 2% OINT* TUBE TOPICAL SCH (11:02)
--- NOTE | 2019-08-07 14:09 | PN ---
Subjective Date of Service: 08/07/19 Interval History: Greatly improved with dizziness yesterday. No more abdominal pain, flank pain resolving. Left CVA tenderness Objective Active Medications: Acetaminophen (Tylenol Tab*) 650 mg PO Q4H PRN PRN Reason: FEVER/HEADACHE Last Admin: 08/07/19 08:15 Dose: 650 mg Albuterol/Ipratropium (Duoneb (Albuterol 2.5 Mg/Ipratropium 0.5 Mg)) 1 neb INH Q4H PRN PRN Reason: SOB/WHEEZING Last Admin: 08/07/19 04:25 Dose: 1 neb Aspirin (Aspirin 81 Mg Chew Tab*) [facility] Last Admin: 08/07/19 08:15 Dose: 81 mg Atorvastatin Calcium (Lipitor*) 10 mg PO BEDTIME [facility] Last Admin: 08/06/19 20:24 Dose: 10 mg Baclofen (Lioresal Tab*) 10 mg PO BEDTIME [facility] Last Admin: 08/06/19 20:24 Dose: 10 mg Cyanocobalamin (Vitamin B12 Tab*) 500 mcg PO [facility] Last Admin: 08/07/19 08:16 Dose: 500 mcg Escitalopram Oxalate (Lexapro *) [facility] [place] Last Admin: 08/07/19 08:16 Dose: 10 mg Ceftriaxone Sodium 1 gm/ (Sodium Chloride) 50 mls @ 100 mls/hr IVPB Q24H [facility] Last Admin: 08/06/19 20:24 Dose: 100 mls/hr Levothyroxine Sodium (Synthroid Tab*) 50 mcg PO DAILY@0600 [facility] Last Admin: 08/07/19 05:01 Dose: 50 mcg Lorazepam (Ativan Tab(*)) 0.5 mg PO Q6H PRN PRN Reason: ANXIETY Last Admin: 08/05/19 22:00 Dose: 0.5 mg Magnesium Oxide (Magox 400 Tab*) [facility] [place] Last Admin: 08/07/19 08:16 Dose: 400 mg Meclizine HCl (Antivert Tab*) 12.5 mg PO Q8HR PRN PRN Reason: DIZZINESS Last Admin: 08/06/19 10:19 Dose: 12.5 mg Melatonin (Melatonin) 3 mg PO BEDTIME [facility] Last Admin: 08/06/19 20:24 Dose: 3 mg Mometasone Furoate/Formoterol Fumar (Dulera 200/5 Mdi*) 2 puff INH BID [facility] Last Admin: 08/07/19 07:41 Dose: 2 puff Mupirocin (Bactroban 2 % Oint*) 1 applic TOPICAL DAILY [facility] Last Admin: 08/07/19 11:02 Dose: Not Given Nortriptyline HCl (Pamelor Cap*) 25 mg PO BEDTIME [facility] Last Admin: 08/06/19 20:24 Dose: 25 mg Ondansetron HCl (Zofran Odt Tab*) 4 mg SL Q6H PRN PRN Reason: NAUSEA/VOMITING Last Admin: 08/07/19 09:03 Dose: 4 mg Oxycodone/Acetaminophen (Percocet 5/325 Tab*) 1 tab PO Q6H PRN PRN Reason: PAIN Last Admin: 08/03/19 18:19 Dose: 1 tab Pantoprazole Sodium (Protonix Tab*) 40 mg PO QAM [facility] Last Admin: 08/07/19 08:16 Dose: 40 mg Polyethylene Glycol/Electrolytes (Miralax*) 17 gm PO DAILY PRN PRN Reason: CONSTIPATION Last Admin: 08/04/19 17:25 Dose: 17 gm Vital Signs - 8 hr 08/07/19 08/07/19 08/07/19 07:15 07:44 08:00 Temperature 97.5 F Pulse Rate 75 83 Respiratory 16 18 16 Rate Blood Pressure 112/50 (mmHg) O2 Sat by Pulse 100 98 Oximetry 08/07/19 11:15 Temperature 97.5 F Pulse Rate 76 Respiratory 20 Rate Blood Pressure 150/68 (mmHg) O2 Sat by Pulse 99 Oximetry Oxygen Devices in Use Now: Nasal Cannula Exam: Exam: Appearance: lying, comfortable. Eyes: No Scleral Icterus Ears/Nose/Mouth/Throat: NL Teeth, Lips, Gums Neck: NL Appearance and Movements; NL JVP Respiratory: Symmetrical Chest Expansion and Respiratory Effort Cardiovascular: RRR, no murmur Abdominal: no tenderness , mild left cva tenderness Lymphatic: No Cervical Adenopathy Extremities: No Edema Result Diagrams: 08/07/19 09:49 08/07/19 09:49 Assess/Plan/Problems-Billing Assessment: 43 y/o female with history of ESRD and polycystic kidney disease, presented with flank pain, gross hematuria, and positive urine culture Ecoli pansensitive , with no unified diagnosis currently. One assumption is infected ruptured cyst causing peritonitis. Also primary hypothyrodism was found with treatment started. - Patient Problems (1) Vertigo Current Visit: Yes Status: Acute Code(s): R42 - DIZZINESS AND GIDDINESS SNOMED Code(s): 859287086 Comment: - Likely peripheral considering spinning in nature, avoidance of visual clue - over UF leading to dizziness also likely - orthostatic bp today - start meclizine (2) Hypotension Current Visit: Yes Status: Acute Comment: resolved due to overdialysis in the setting of infection IV 500ml NS today with improvement (3) Ruptured cyst of kidney Current Visit: Yes Status: Acute Code(s): Q61.00 - CONGENITAL RENAL CYST, UNSPECIFIED SNOMED Code(s): 40676518 Comment: complicated with infected cyst Hb stable now watch hematuria symptomatic treatment including pain control (4) Urinary tract infection Current Visit: Yes Status: Acute Comment: E.coli pansensitive UTI continue IV ceftriaxone, aim to complete 7 days in total not sure whether CT AP presnet, still need to chekc her O2 sat (5) Peritonitis Current Visit: Yes Status: Acute Code(s): K65.9 - PERITONITIS, UNSPECIFIED SNOMED Code(s): 69087425 Comment: Evidenced by elevated peritoneal fluid 140 with neutrophil dorminant , gram stain neg on IP vancomycin now appreciate nephrology input consult ID today (6) Anxiety Current Visit: Yes Status: Acute Code(s): F41.9 - ANXIETY DISORDER, UNSPECIFIED SNOMED Code(s): 23505311 Comment: anxiety attack during hospitalization continue prn ativan, continue Lexapro (7) ESRD (end stage renal disease) on dialysis Current Visit: No Status: Chronic Code(s): N18.6 - END STAGE RENAL DISEASE; Z99.2 - DEPENDENCE ON RENAL DIALYSIS SNOMED Code(s): 979426265 Comment: - continue PD as per nephrology - weight daily (8) DVT prophylaxis Current Visit: No Status: Acute Code(s): HGS1744 - SNOMED Code(s): 374977132 Comment: ambulatory (9) Primary hypothyroidism Current Visit: Yes Status: Acute Code(s): E03.9 - HYPOTHYROIDISM, UNSPECIFIED SNOMED Code(s): 61471323 Comment: start levofloxin replacement, rechck after 3 months wonitor TSH. Status and Disposition: Inpatient Medicine. PT/OT. Attestation Documenting Resident: Ari Supervising Physician: Josh Attending/Supervising Physician Comment: Agree with plan as outlined in Dr. Chapman's note from today unless indicated here. Increasing leukocytosis. Patient not receiving IP abx. Pt has suspected culture negative PD peritonitis. No evidence at this point to narrow coverage especially with e. coli in urine. We will advocate for vanco and gentamycin IP while the patient is hospitalized but we do not have the ability to order medication. Will discuss with senior market intelligence consultant otr driver. Normal saline for hypernatremia not hypotension. Attestation: This service has been performed in part by a resident under the direction of a teaching physician.Josh Terry, performed the service, or was physically present during the critical, or carreon portions of the service, furnished by the resident. I participated in the management of the patient.
[2019-08-07] MEDS ORDERED: NS 0.9% 500 ML* 500 ML IV ONE (15:02)
[2019-08-07] MEDS: Meclizine TAB* 12.5 MG PO PRN (16:52)
[2019-08-07 17:14] LABS: C Reactive Protein 299.31 mg/L (<8.01)
[2019-08-07] MEDS: Calcium Carbonate CHEW TAB* 500 MG (TUMS) PO PRN ×2 (19:53→23:44)
[2019-08-07] MEDS: oxyCODONE/Acetamin 5/325 MG* TAB PO PRN (21:36)
[2019-08-07] MEDS: Melatonin 3 MG TAB PO SCH (21:38)
[2019-08-07] MEDS: Atorvastatin* 10 MG TAB PO SCH (21:38)
[2019-08-07] MEDS: Baclofen TAB* 10 MG PO SCH (21:38)
[2019-08-07] MEDS: Nortriptyline CAP* 25 MG PO SCH (21:38)
[2019-08-07] MEDS: cefTRIAXone(*) 1 GM in NS 0.9% 50 ML* 50 ML IVPB SCH (21:59)
[2019-08-08] MEDS: Levothyroxine TAB* 50 MCG TAB PO SCH (05:03)
[2019-08-08 06:42] LABS: Hematocrit 41 % (35-47); Hemoglobin 14.1 g/dL (12.0-16.0); Mean Corpuscular HGB Conc 34 g/dL (31-36); Mean Corpuscular Hemoglobin 33 pg (27-31); Mean Corpuscular Volume 97 fL (80-97); Mean Platelet Volume 7.8 fL (7.4-10.4); Platelet Count 158 10^3/uL (150-450); Red Blood Count 4.26 10^6 /uL (3.70-4.87); Red Cell Distribution Width 17 % (10-15); White Blood Count 16.9 10^3/uL (3.5-10.8)
[2019-08-08 06:59] LABS: C Reactive Protein 317.64 mg/L (<8.01); Calcium 8.9 mg/dL (8.6-10.3); Potassium 3.7 mmol/L (3.5-5.0)
[2019-08-08] MEDS: Mometasone/Formoter 200/5 MDI INH SCH ×2 (07:00→19:08)
[2019-08-08] MEDS: Albuterol/Ipratropium NEB.SOL* Albuterol 2.5 MG/Ipratropium 0.5 MG 3 ML INH PRN ×2 (07:01→19:08)
[2019-08-08 07:23] LABS: ABS Lymphocytes 0.4 10^3/ul (1.0-4.8); ABS Monocytes 0.9 10^3/ul (0-0.8); ABS Neutrophils 15.5 10^3/ul (1.5-7.7); Eosinophil % 0.2 %; Lymphocyte % 2.3 %
[2019-08-08] MEDS: Mupirocin 2% OINT* TUBE TOPICAL SCH (08:55)
[2019-08-08] MEDS: Magnesium Oxide TAB* 400 MG PO SCH (09:26)
[2019-08-08] MEDS: Escitalopram * 10 MG TAB PO SCH (09:26)
[2019-08-08] MEDS: Pantoprazole TAB * 40 MG TAB PO SCH (09:26)
[2019-08-08] MEDS: Aspirin 81 mg CHEW TAB* 81 MG TAB.CHEW PO SCH (09:26)
[2019-08-08] MEDS: Cyanocobalamin TAB* 500 MCG PO SCH (09:26)
[2019-08-08] MEDS ORDERED: NS 0.9% 500 ML* 500 ML IV ONE ×2 (09:48→17:55)
--- NOTE | 2019-08-08 09:52 | PN ---
Subjective Date of Service: 08/08/19 Interval History: Feels much better [place] better with fluid yesterday, said there was a "ping" in her ear that resolved after the fluid Feels dehydrated and very thirsty4 Walking around [place] this AM and yesterday Notes she takes 1/2 tab percocet at home not 1 tab 500 cc bolus now NS lower percocet dose Discuss rising WBC with nephro and mechanism to receive IP abx as outpatient Possible d/c later today Objective Active Medications: Acetaminophen (Tylenol Tab*) 650 mg PO Q4H PRN PRN Reason: FEVER/HEADACHE Last Admin: 08/07/19 14:05 Dose: 650 mg Albuterol/Ipratropium (Duoneb (Albuterol 2.5 Mg/Ipratropium 0.5 Mg)) 1 neb INH Q4H PRN PRN Reason: SOB/WHEEZING Last Admin: 08/08/19 07:01 Dose: 1 neb Aspirin (Aspirin 81 Mg Chew Tab*) 81 mg PO [facility] Last Admin: 08/08/19 09:26 Dose: 81 mg Atorvastatin Calcium (Lipitor*) 10 mg PO BEDTIME [facility] Last Admin: 08/07/19 21:38 Dose: 10 mg Baclofen (Lioresal Tab*) 10 mg PO BEDTIME [facility] Last Admin: 08/07/19 21:38 Dose: 10 mg Calcium Carbonate (Tums*) 500 mg PO BID PRN PRN Reason: DYSPEPSIA Last Admin: 08/07/19 23:44 Dose: 500 mg Cyanocobalamin (Vitamin B12 Tab*) 500 mcg PO [facility] Last Admin: 08/08/19 09:26 Dose: 500 mcg Escitalopram Oxalate (Lexapro *) 10 mg PO [facility] Last Admin: 08/08/19 09:26 Dose: 10 mg Ceftriaxone Sodium 1 gm/ (Sodium Chloride) 50 mls @ 100 mls/hr IVPB Q24H [facility] Last Admin: 08/07/19 21:59 Dose: 100 mls/hr Sodium Chloride (Ns 0.9% 500 Ml*) 500 mls @ 0 mls/hr IV ONCE ONE Stop: 08/08/19 09:49 Levothyroxine Sodium (Synthroid Tab*) 50 mcg PO DAILY@0600 [facility] Last Admin: 08/08/19 05:03 Dose: 50 mcg Lorazepam (Ativan Tab(*)) 0.5 mg PO Q6H PRN PRN Reason: ANXIETY Last Admin: 08/05/19 22:00 Dose: 0.5 mg Magnesium Oxide (Magox 400 Tab*) 400 mg PO QAM [facility] Last Admin: 08/08/19 09:26 Dose: 400 mg Meclizine HCl (Antivert Tab*) 12.5 mg PO Q8HR PRN PRN Reason: DIZZINESS Last Admin: 08/07/19 16:52 Dose: 12.5 mg Melatonin (Melatonin) 3 mg PO BEDTIME [facility] Last Admin: 08/07/19 21:38 Dose: 3 mg Mometasone Furoate/Formoterol Fumar (Dulera 200/5 Mdi*) 2 puff INH BID [facility] Last Admin: 08/08/19 07:00 Dose: 2 puff Mupirocin (Bactroban 2 % Oint*) 1 applic TOPICAL DAILY [facility] Last Admin: 08/08/19 08:55 Dose: Not Given Nortriptyline HCl (Pamelor Cap*) 25 mg PO BEDTIME [facility] Last Admin: 08/07/19 21:38 Dose: 25 mg Ondansetron HCl (Zofran Odt Tab*) 4 mg SL Q6H PRN PRN Reason: NAUSEA/VOMITING Last Admin: 08/07/19 09:03 Dose: 4 mg Oxycodone/Acetaminophen (Percocet 5/325 Tab*) 0.5 tab PO Q6H PRN PRN Reason: PAIN Pantoprazole Sodium (Protonix Tab*) 40 mg PO QAM [facility] Last Admin: 08/08/19 09:26 Dose: 40 mg Polyethylene Glycol/Electrolytes (Miralax*) 17 gm PO DAILY PRN PRN Reason: CONSTIPATION Last Admin: 08/04/19 17:25 Dose: 17 gm Vital Signs - 8 hr 08/08/19 08/08/19 08/08/19 04:53 07:02 07:03 Temperature 98.6 F Pulse Rate 87 86 86 Respiratory 18 16 16 Rate Blood Pressure 147/77 (mmHg) O2 Sat by Pulse 97 97 97 Oximetry 08/08/19 07:15 Temperature 97.6 F Pulse Rate 82 Respiratory 20 Rate Blood Pressure 135/75 (mmHg) O2 Sat by Pulse 98 Oximetry Oxygen Devices in Use Now: Nasal Cannula Result Diagrams: 08/09/19 07:31 08/09/19 07:31 Microbiology and Other Data: Microbiology 08/03/19 01:23 Sterile Body Fluid Culture - Preliminary Ascites Fluid Sterile Body Fluid Culture - Final Not Reportable Skin and Soft Tissue MRSA/MSSA (PCR - Final Mrsa Negative S.aureus Negative 08/02/19 21:49 Aerobic Blood Culture - Final Blood Venous No Growth Day 5 08/02/19 20:13 Aerobic Blood Culture - Final Blood Venous No Growth Day 5 Anaerobic Blood Culture - Final Staphylococcus Epidermidis Blood MRSA/MSSA (PCR) - Final Mrsa Negative S.aureus Negative 08/03/19 18:00 Sterile Body Fluid Culture - Preliminary Peritoneal Fluid No Growth Day 4 Sterile Body Fluid Culture - Preliminary No Growth Day 4 08/02/19 19:42 Urine Culture - Final Urine Escherichia Coli 08/03/19 01:23 Gram Stain - Final Body Fluid 08/03/19 04:06 Nasal Screen MRSA (PCR) - Final Nasal Mrsa Not Detected Assess/Plan/Problems-Billing Assessment: 43 y/o female with history of ESRD and polycystic kidney disease, presented with flank pain, gross hematuria, and positive urine culture Ecoli pansensitive , with no unified diagnosis currently. One assumption is infected ruptured cyst causing peritonitis. Also primary hypothyrodism was found with treatment started. - Patient Problems (1) Vertigo Comment: - likely peripheral - resolved -on meclizine (2) Hypotension Comment: resolved due to overdialysis in the setting of infection IV 500ml NS today with improvement (3) Ruptured cyst of kidney Comment: History of PCKD; complicated with infected cyst Hb stable watch hematuria symptomatic treatment including pain control (4) Urinary tract infection Comment: E.coli pansensitive UTI switched to cipro floxacin will complete 7 days (5) Peritonitis Comment: Evidenced by elevated peritoneal fluid WBC 100 with neutrophil dorminant, gram stain neg on IP vancomycin now; borderline appreciate nephrology input Okay to dc on cipro will follow up as an outpatient (6) Anxiety Comment: anxiety attack during hospitalization continue prn ativan, continue Lexapro (7) ESRD (end stage renal disease) on dialysis Comment: - continue PD as per nephrology - weight daily (8) DVT prophylaxis Comment: ambulatory (9) Primary hypothyroidism Comment: start levofloxin replacement, rechck after 3 months monitor TSH. Status and Disposition: Inpatient Medicine. PT/OT.
[2019-08-08] MEDS: Polyethylene Glycol 3350* 17 GM PACKET PO PRN (10:30)
[2019-08-08] MEDS: oxyCODONE/Acetamin 5/325 MG* TAB PO PRN ×2 (10:30→22:12)
[2019-08-08] MEDS ORDERED: Bisacodyl SUPP* 10 MG SUPP PR ONE (14:14)
[2019-08-08] MEDS: Acetaminophen TAB* 325 MG PO PRN (17:25)
[2019-08-08] MEDS: Melatonin 3 MG TAB PO SCH (21:57)
[2019-08-08] MEDS: Baclofen TAB* 10 MG PO SCH (21:57)
[2019-08-08] MEDS: Atorvastatin* 10 MG TAB PO SCH (21:57)
[2019-08-08] MEDS: cefTRIAXone(*) 1 GM in NS 0.9% 50 ML* 50 ML IVPB SCH (21:58)
[2019-08-08] MEDS: Nortriptyline CAP* 25 MG PO SCH (21:58)
[2019-08-09] MEDS: Levothyroxine TAB* 50 MCG TAB PO SCH (05:09)
--- NOTE | 2019-08-09 07:02 | PN ---
Subjective Date of Service: 08/09/19 Interval History: HD#8 43 y/o female with history of ESRD and polycystic kidney disease, presented with flank pain, gross hematuria, and positive urine culture Ecoli pansensitive , with no unified diagnosis currently. One assumption is infected ruptured cyst causing peritonitis. New onset hypothyroidism. No acute overnight events Vitals stable No complaint at present. No numbness and tingling. Hematuria resolved Labs:Leucocytosis; Hyponatremia Objective Active Medications: Acetaminophen (Tylenol Tab*) 650 mg PO Q4H PRN PRN Reason: FEVER/HEADACHE Last Admin: 08/08/19 17:25 Dose: 650 mg Albuterol/Ipratropium (Duoneb (Albuterol 2.5 Mg/Ipratropium 0.5 Mg)) 1 neb INH Q4H PRN PRN Reason: SOB/WHEEZING Last Admin: 08/08/19 19:08 Dose: 1 neb Aspirin (Aspirin 81 Mg Chew Tab*) [facility] [place] Last Admin: 08/08/19 09:26 Dose: 81 mg Atorvastatin Calcium (Lipitor*) 10 mg PO [facility] Last Admin: 08/08/19 21:57 Dose: 10 mg Baclofen (Lioresal Tab*) 10 mg PO [facility] Last Admin: 08/08/19 21:57 Dose: 10 mg Calcium Carbonate (Tums*) 500 mg PO BID PRN PRN Reason: DYSPEPSIA Last Admin: 08/07/19 23:44 Dose: 500 mg Cyanocobalamin (Vitamin B12 Tab*) 500 [facility]cg [facility] [place] Last Admin: 08/08/19 09:26 Dose: 500 mcg Escitalopram Oxalate (Lexapro *) 10 mg PO [facility] Last Admin: 08/08/19 09:26 Dose: 10 mg Ceftriaxone Sodium 1 gm/ (Sodium Chloride) 50 mls @ 100 mls/hr IVPB Q24H [facility] Last Admin: 08/08/19 21:58 Dose: 100 mls/hr Levothyroxine Sodium (Synthroid Tab*) 50 mcg PO DAILY@0600 [facility] Last Admin: 08/09/19 05:09 Dose: 50 mcg Lorazepam (Ativan Tab(*)) 0.5 mg PO Q6H PRN PRN Reason: ANXIETY Last Admin: 08/05/19 22:00 Dose: 0.5 mg Magnesium Oxide (Magox 400 Tab*) 400 mg PO QAM [facility] Last Admin: 08/08/19 09:26 Dose: 400 mg Meclizine HCl (Antivert Tab*) 12.5 mg PO Q8HR PRN PRN Reason: DIZZINESS Last Admin: 08/07/19 16:52 Dose: 12.5 mg Melatonin (Melatonin) 3 mg PO BEDTIME [facility] Last Admin: 08/08/19 21:57 Dose: 3 mg Mometasone Furoate/Formoterol Fumar (Dulera 200/5 Mdi*) 2 puff INH BID [facility] Last Admin: 08/08/19 19:08 Dose: 2 puff Mupirocin (Bactroban 2 % Oint*) 1 applic TOPICAL DAILY [facility] Last Admin: 08/08/19 08:55 Dose: Not Given Nortriptyline HCl (Pamelor Cap*) 25 mg PO BEDTIME [facility] Last Admin: 08/08/19 21:58 Dose: 25 mg Ondansetron HCl (Zofran Odt Tab*) 4 mg SL Q6H PRN PRN Reason: NAUSEA/VOMITING Last Admin: 08/07/19 09:03 Dose: 4 mg Oxycodone/Acetaminophen (Percocet 5/325 Tab*) 0.5 tab PO Q6H PRN PRN Reason: PAIN - MODERATE Last Admin: 08/08/19 22:12 Dose: 0.5 tab Pantoprazole Sodium (Protonix Tab*) 40 mg PO QAM [facility] Last Admin: 08/08/19 09:26 Dose: 40 mg Polyethylene Glycol/Electrolytes (Miralax*) 17 gm PO DAILY PRN PRN Reason: CONSTIPATION Last Admin: 08/08/19 10:30 Dose: 17 gm Vital Signs - 8 hr 08/08/19 08/09/19 08/09/19 23:19 00:49 03:27 Temperature 97.2 F 98.1 F Pulse Rate 82 84 Respiratory 18 16 16 Rate Blood Pressure 142/72 150/81 (mmHg) O2 Sat by Pulse 99 96 Oximetry Oxygen Devices in Use Now: None Exam: Patient is sitting on a chair and not in acute distress. HEENT: Atraumatic and normocephalic Lungs; B/L clear vesicular sound heard with no added sound. HEart: Normal with no added sound Abdomen: PD catheter insitu. Distended; Nontender; Normal BS heard. No CVA tenderness. Extremity: No swelling Neuro: Alert, conscious and oriented Result Diagrams: 08/09/19 07:31 08/09/19 07:31 Microbiology and Other Data: Microbiology 08/03/19 01:23 Sterile Body Fluid Culture - Preliminary Ascites Fluid Sterile Body Fluid Culture - Final Not Reportable Skin and Soft Tissue MRSA/MSSA (PCR - Final Mrsa Negative S.aureus Negative 08/02/19 21:49 Aerobic Blood Culture - Final Blood Venous No Growth Day 5 08/02/19 20:13 Aerobic Blood Culture - Final Blood Venous No Growth Day 5 Anaerobic Blood Culture - Final Staphylococcus Epidermidis Blood MRSA/MSSA (PCR) - Final Mrsa Negative S.aureus Negative 08/03/19 18:00 Sterile Body Fluid Culture - Preliminary Peritoneal Fluid No Growth Day 4 Sterile Body Fluid Culture - Preliminary No Growth Day 4 08/02/19 19:42 Urine Culture - Final Urine Escherichia Coli 08/03/19 01:23 Gram Stain - Final Body Fluid 08/03/19 04:06 Nasal Screen MRSA (PCR) - Final Nasal Mrsa Not Detected Assess/Plan/Problems-Billing Assessment: 43 y/o female with history of ESRD and polycystic kidney disease, presented with flank pain, gross hematuria, and positive urine culture Ecoli pansensitive , with no unified diagnosis currently. One assumption is infected ruptured cyst causing peritonitis. Also primary hypothyrodism was found with treatment started. On peritoenal dialysis - Patient Problems (1) Ruptured cyst of kidney Status: Acute Code(s): Q61.00 - CONGENITAL RENAL CYST, UNSPECIFIED SNOMED Code(s): 50040514 Comment: History of PCKD; complicated with infected cyst Hb stable watch hematuria symptomatic treatment including pain control (2) Urinary tract infection Status: Acute Comment: E.coli pansensitive UTI switched to cipro floxacin will complete 7 days (3) Vertigo Status: Acute Code(s): R42 - DIZZINESS AND GIDDINESS SNOMED Code(s): 119797772 Comment: - likely peripheral - resolved -on meclizine (4) Primary hypothyroidism Status: Acute Code(s): E03.9 - HYPOTHYROIDISM, UNSPECIFIED SNOMED Code(s): 43823872 Comment: start levofloxin replacement, rechck after 3 months monitor TSH. (5) ESRD (end stage renal disease) on dialysis Status: Chronic Code(s): N18.6 - END STAGE RENAL DISEASE; Z99.2 - DEPENDENCE ON RENAL DIALYSIS SNOMED Code(s): 945394269 Comment: - continue PD as per nephrology - weight daily (6) Peritonitis Status: Ruled-out Code(s): K65.9 - PERITONITIS, UNSPECIFIED SNOMED Code(s): 63403781 Comment: Evidenced by elevated peritoneal fluid WBC 100 with neutrophil dorminant, gram stain neg on IP vancomycin now; borderline appreciate nephrology input Okay to dc on cipro will follow up as an outpatient (7) Anxiety Status: Acute Code(s): F41.9 - ANXIETY DISORDER, UNSPECIFIED SNOMED Code(s) : 71440566 Comment: anxiety attack during hospitalization continue prn ativan, continue Lexapro (8) DVT prophylaxis Status: Acute Code(s): KBQ7045 - SNOMED Code(s): 906761715 Comment: ambulatory (9) Full code status Status: Acute Code(s): Z78.9 - OTHER SPECIFIED HEALTH STATUS SNOMED Code(s) : 638468508 Status and Disposition: Inpatient Medicine. PT/OT. Dc Attending: Florence Phelan Attestation Documenting Resident: Lauryn Gómez Supervising Physician: Florence Phelan Attestation: This service has been performed in part by a resident under the direction of a teaching physician.I, Florence Phelan, performed the service, or was physically present during the critical, or carreon portions of the service, furnished by the resident. I participated in the management of the patient.
--- NOTE | 2019-08-09 07:12 | PN ---
Hospitalist Progress Note Date of Service: 08/09/19 Attending Addendum: 43F PMH polycystic kidney disease and ESRD on PD presented with blt flank and abd pain who was found to have E.Coli pyelonephritis, possibly infected PD, asthma, anxiety depression, chronic pain on senior living opiates with hospital course c/b persistent leukocytosis, new hypothyroidism. #E Coli Pyelo: Total of 14 day Day 4/ on CTX, would change to cipro #Possible PD infecton: On IP Vanc #ESRD: On PD, some hyperNA did get fluid bolus #Anxceity/Depression: Lexarpo lorazepam #Hypothyroid: Rx home Synthroid #Pain: Home meds nortyprilne #DVT: SQH #Code Full Dispo: Pt is eager for d/c to home, discussed with nephrology who agrees, home on cipro with close FU and will need CBC at end of week
[2019-08-09] MEDS: Albuterol/Ipratropium NEB.SOL* Albuterol 2.5 MG/Ipratropium 0.5 MG 3 ML INH PRN (07:40)
[2019-08-09] MEDS: Mometasone/Formoter 200/5 MDI INH SCH (07:40)
[2019-08-09] MEDS: Cyanocobalamin TAB* 500 MCG PO SCH (08:09)
[2019-08-09] MEDS: Escitalopram * 10 MG TAB PO SCH (08:09)
[2019-08-09] MEDS: Magnesium Oxide TAB* 400 MG PO SCH (08:09)
[2019-08-09] MEDS: Pantoprazole TAB * 40 MG TAB PO SCH (08:09)
[2019-08-09] MEDS: Aspirin 81 mg CHEW TAB* 81 MG TAB.CHEW PO SCH (08:09)
[2019-08-09 08:17] LABS: BUN/Creatinine Ratio 8.3 (8-20); EGFR African American 6.7 (>60); EGFR Non-African American 5.5 (>60); Hematocrit 42 % (35-47); Hemoglobin 13.8 g/dL (12.0-16.0); Magnesium 2.1 mg/dL (1.9-2.7); Mean Corpuscular HGB Conc 33 g/dL (31-36); Mean Corpuscular Hemoglobin 32 pg (27-31); Mean Corpuscular Volume 97 fL (80-97); Mean Platelet Volume 7.9 fL (7.4-10.4); Platelet Count 158 10^3/uL (150-450); Potassium 3.8 mmol/L (3.5-5.0); Red Blood Count 4.27 10^6 /uL (3.70-4.87); Red Cell Distribution Width 17 % (10-15); White Blood Count 19.7 10^3/uL (3.5-10.8)
[2019-08-09 08:52] LABS: ABS Lymphocytes 0.5 10^3/ul (1.0-4.8); ABS Monocytes 1.3 10^3/ul (0-0.8); ABS Neutrophils 17.8 10^3/ul (1.5-7.7); Nucleated Red Blood Cells % 0.1
[2019-08-09] MEDS ORDERED: Vancomycin(*) 1,000 MG VIAL IVPB ONE (10:00)
[2019-08-09] MEDS ORDERED: Ciprofloxacin 400MG IVPREMIX(* 400 MG/200 ML BAG IVPB SCH ×2 (11:00)
[2019-08-09] MEDS: Mupirocin 2% OINT* TUBE TOPICAL SCH (11:09)
[2019-08-09 15:40] VITALS: BP 143/82
--- NOTE | 2019-08-10 00:33 | DS ---
CC: Regi Garnica NP * DISCHARGE SUMMARY: DATE OF ADMISSION: 08/03/19 DATE OF DISCHARGE: 08/09/19 PRIMARY CARE PROVIDER: Regi Garnica NP DISCHARGE DISPOSITION: To home and stable. PRIMARY DIAGNOSES: 1. Pyelonephritis, possible ruptured cyst in the setting of polycystic kidney disease. 2. Urinary tract infection. 3. Possible peritonitis in the setting of a peritoneal dialysis patient. 4. Hypothyroidism. SECONDARY DIAGNOSES: 1. Polycystic kidney disease and ESRD, on peritoneal dialysis. 2. Asthma. 3. Anxiety. 4. Depression. 5. Chronic pain. MEDICATIONS: At the time of discharge, include: 1. Aspirin 81 mg p.o. daily. 2. Baclofen 10 mg p.o. q.h.s. 3. Calcium carbonate 500 mg p.o. b.i.d. p.r.n. 4. Vitamin B12 tab 500 mcg p.o. q.a.m. 5. Escitalopram 10 mg p.o. q.a.m. 6. Fluticasone/vilanterol or Breo Ellipta 200 mcg inhaled q.a.m. 7. Levothyroxine 50 mcg p.o. q.a.m. 8. Magnesium 400 mg p.o. q.a.m. 9. Nortriptyline 25 mg p.o. q.h.s. 10. Omeprazole 40 mg p.o. q.a.m. 11. Oxycodone/acetaminophen 0.5 tab p.o. q.6 hours p.r.n. for severe pain. 12. Simvastatin 20 mg p.o. q.h.s. 13. Acetaminophen/codeine 30 mg tablets, 1 tab p.o. q.6 hours p.r.n. 14. Albuterol inhaler 2 puffs inhaled q.4 hours p.r.n. 15. Cetirizine 10 mg p.o. q.a.m. 16. Vitamin D 2000 units p.o. q.a.m. 17. Furosemide 20 mg p.o. q.a.m. 18. Ipratropium and albuterol nebulizer solution q.4 hours p.r.n. for severe shortness of breath. 19. Lisinopril 30 mg p.o. q.a.m. 20. Montelukast 10 mg p.o. q.a.m. 21. Bactroban 1 application topically b.i.d. to PD site. 22. Ondansetron 4 mg p.o. daily p.r.n. 23. Vitamin E cap 1000 units p.o. q.a.m. 24. Ciprofloxacin 500 mg p.o. b.i.d. for a total of 10 days status post discharge. Medication changes on this hospitalization include the addition of: Ciprofloxacin for additional 10 days status post discharge as well as the addition of levothyroxine, which will be a new medication. All other medications are unchanged. HISTORY OF PRESENT ILLNESS AND HOSPITAL COURSE: A 43-year-old female with the above past medical history, who presented to the emergency room on 08/03/19 with complaint of bilateral flank pain and abdominal pain, fevers, subjective chills. She presented to the emergency room actually 3 days prior to admission, was seen in the ER and started on Keflex for presumed UTI. She did not see any improvement, thus she returned under the advice of her quilt stuffer, Dr. Gonzalez , in the ER. The patient was found to have leukocytosis, mild, but no evidence of fever or tachycardia, not meeting septic criteria. She was admitted for presumed pyelonephritis versus ruptured cyst of kidney versus possible peritonitis. HOSPITAL COURSE BY PROBLEM: 1. Bilateral flank pain. Urine culture eventually grew E. coli. Abdomen and bladder ultrasound as well as abdomen and pelvis CT showed no significant interval change of bilateral polycystic kidneys and no other concerning findings abdominally. A culture from the PD cath is done, which showed no growth in terms of micro and cell count total was 100 with initially 140 white blood cells and then 34 white blood cells though ultimately fluid appearance was clear and colorless. Nephrology was consulted who felt that this was most consistent with a ruptured cyst versus pyelonephritis given positive urine culture and UTI-like symptoms over peritonitis though she was treated with intraperitoneal vancomycin and gentamicin for 2 subsequent weeks 7 days apart with intraperitoneal vancomycin and 1 dose of intraperitoneal gentamicin and then was covered with ceftriaxone for E. coli in urine, which was found to be pansensitive. The patient did remarkably well, pain resolved, and she was tolerating diet. The patient did have persistent leukocytosis that continued to up-trend throughout her hospital course, although she had no clinical signs or symptoms of new or worsening infection or any localizing symptoms. 2. Polycystic kidney disease, ESRD, and PD. The patient was given PD by in- house PD nurse. Again, vancomycin was given intraperitoneally for 2 doses and Nephrology did not further recommend any further intraperitoneal vancomycin and recommended ciprofloxacin on discharge that would cover for both pyelonephritis and possible peritonitis. 3. Anxiety and depression. Her home medications were continued. 4. Pain and insomnia. Her home medications were continued. 5. Leukocytosis. The patient had persistent leukocytosis despite antibiotic treatment with ceftriaxone. Consultation with Nephrology did not believe that this was new peritonitis, as she had no localizing signs or symptoms but possibly delayed inflammatory response. Furthermore, they requested that the patient will be changed to ciprofloxacin on discharge which has better penetration to kidney parenchyma if there is any component of poor coverage. The patient is tolerating diet, is essentially pain free, feeling very well. Thus it is reasonable to discharge with close followup as an outpatient. We would request that she has a CBC drawn within 7 days of discharge. 6. Hypertension. Pressures were well controlled. She will be discharged on home antihypertensives. 7. Hypothyroidism. The patient was found to have elevated TSH and low T4 and T3 on admission consistent with primary hypothyroidism and levothyroxine 50 mcg was started. A prescription was given for home which can be continued and TSH can be followed by outpatient provider. TSH on admission was 22 and anti-TPO was not drawn. DIAGNOSTIC STUDIES/LAB DATA: Done on this admission, labs on day of discharge: CBC on 08/09/19 shows white blood cell count of 19.7, hemoglobin 13.8, hematocrit 42, platelets 158. BMP shows sodium 126, potassium 3.8, chloride 91 , carbon dioxide 20, anion gap 15, BUN 66, creatinine 7.95, glucose 116. TSH done on the day of admission, on 08/02/19 was 22, free T4 of 0.48, and free T3 is 2. Imaging done during this hospitalization includes: Abdomen and pelvis CT done 08/06/19, which showed bilateral cysts replacing the parenchyma of kidney, otherwise no acute findings. Abdomen and bladder ultrasound done on 08/03/19, which also showed polycystic kidney disease as well as noted "ascites" that was most likely peritoneal dialysate. CONSULTATIONS DURING THIS HOSPITALIZATION: Included Nephrology who managed PD dialysate as well as commented on the likelihood of infection in intraperitoneal space. They felt that this did not represent peritonitis as the patient had no clinical signs or symptoms of such. ITEMS TO FOLLOW UP ON STATUS POST DISCHARGE: 1. Leukocytosis. The patient needs a repeat CBC within 7 days. She will be changed to oral Cipro and if leukocytosis is not down trending from 19, would request that Nephrology reconsider intraperitoneal antibiotics. 2. Hypothyroidism. This is new on this hospitalization. TSH should be followed in 6 to 8 weeks status post starting levothyroxine. On the day of discharge, the patient tolerating diet, ambulating, voiding freely. She has no localizing signs or symptoms and is eager to be discharged to home. She has planned a followup with primary care provider and she is aware of signs and symptoms of when to return. TIME SPENT: Forty-five minutes was spent on the planning of this discharge with over half of that spent directly at the bedside of the patient. This discharge summary is a brief summarization of care that occurred over a course of 6 days. Please do not hesitate to contact us if there any questions about details. A physical exam was completed on the day of discharge. My cell phone is [phone] and I can be contacted directly about questions regarding the care of this patient during this hospital stay. [id number]/[facility] #: [id number]
--- NOTE | 2019-08-10 02:06 | PN ---
PROGRESS NOTE: DATE OF SERVICE: 08/09/19 SUBJECTIVE: The patient reports feeling well. Denies any complaints. Denies any flank pain. Denies any abdominal pain and wants to go home. Vitals and labs have been reviewed. PHYSICAL EXAM: HEENT: NCAT. Heart: S1, S2 present, regular rate at the time of exam. Lungs: Clear to auscultation. Abdomen: Distended. No rebound. No guarding. Extremities: Noted to have no edema. Neuro: Alert and oriented. ASSESSMENT AND PLAN: 1. Escherichia coli urinary tract infection and pyelonephritis. The patient is currently on IV ceftriaxone therapy. Discussed with the medical team and recommended switching her to ciprofloxacin which covers the E. coli that she is sensitive to and also has the better coverage in case of ruptured cyst and urinary tract infection in the setting of polycystic kidney disease. 2. Unclear if the patient has peritonitis, however, the patient did have elevated white count with neutrophil predominance on her initial fluid evaluation. The patient denies any cloudy urine and currently does not have any abdominal pain. Received intraperitoneal vancomycin and the ciprofloxacin will cover gram-negative organisms and she is going to be on it for her urinary tract infection. 3. Hyponatremia. Can adjust with peritoneal fluids. 4. The patient's white count still noted to be elevated; however, the patient is clinically improved. In light of this, recommend switching to ciprofloxacin and checking CBC and BMP in a week. 5. The patient also appears constipated, which can deter her PD exchanges. Would need to work on her constipation to get her to have more efficient PD. 6. The patient to follow up with us in the PD clinic as scheduled and to call us if there are any issues. 7. The patient to have repeat BMP and CBC with her primary care doctor in a week to ensure that her white count and inflammation markers are trending down. 8. Case also discussed with the medical team. [id number]/[facility] #: [id number] JOSSELINE
== END 2019-08-09 15:40 | disposition home or self-care (01) | DRG 371 ==
LOC: ED 16:34 → MEDTELE 23:48
PROVIDERS: ADMIT Internal Medicine; ATTEND Internal Medicine
PROC: 3E1M39Z Irrigation of Peritoneal Cavity using Dialysate, Percutaneous Approach (ICD-10-PCS; principal; 2019-08-03)
PROC: 3E1M39Z Irrigation of Peritoneal Cavity using Dialysate, Percutaneous Approach (ICD-10-PCS; 2019-08-04)
PROC: 3E1M39Z Irrigation of Peritoneal Cavity using Dialysate, Percutaneous Approach (ICD-10-PCS; 2019-08-05)
PROC: 3E1M39Z Irrigation of Peritoneal Cavity using Dialysate, Percutaneous Approach (ICD-10-PCS; 2019-08-06)
PROC: 3E1M39Z Irrigation of Peritoneal Cavity using Dialysate, Percutaneous Approach (ICD-10-PCS; 2019-08-07)
PROC: 3E1M39Z Irrigation of Peritoneal Cavity using Dialysate, Percutaneous Approach (ICD-10-PCS; 2019-08-08)
DX: K65.9 Peritonitis, unspecified (principal); N18.6 End stage renal disease; I12.0 Hypertensive chronic kidney disease with stage 5 chronic kidney disease or end stage renal disease; Q61.2 Polycystic kidney, adult type; E87.2 Acidosis; N12 Tubulo-interstitial nephritis, not specified as acute or chronic; N39.0 Urinary tract infection, site not specified; E87.1 Hypo-osmolality and hyponatremia; N89.0 Mild vaginal dysplasia; E78.5 Hyperlipidemia, unspecified; F32.9 Major depressive disorder, single episode, unspecified; G25.81 Restless legs syndrome; J45.909 Unspecified asthma, uncomplicated; M19.90 Unspecified osteoarthritis, unspecified site; K21.9 Gastro-esophageal reflux disease without esophagitis; E03.9 Hypothyroidism, unspecified; F41.9 Anxiety disorder, unspecified; R31.0 Gross hematuria; I95.9 Hypotension, unspecified; G89.29 Other chronic pain; B96.20 Unspecified Escherichia coli [E. coli] as the cause of diseases classified elsewhere; G47.00 Insomnia, unspecified; Z99.2 Dependence on renal dialysis; Z79.1 Long term (current) use of non-steroidal anti-inflammatories (NSAID); Z79.82 Long term (current) use of aspirin; Z79.891 Long term (current) use of opiate analgesic; Z79.51 Long term (current) use of inhaled steroids; Z79.899 Other long term (current) drug therapy; Z88.5 Allergy status to narcotic agent; Z84.1 Family history of disorders of kidney and ureter
CPT/HCPCS: 36415; 71045; 74177; 76770; 80048; 80053; 81003; 81015; 82803; 83605; 83735; 83880; 84436; 84439; 84443; 84479; 84481; 84484; 85025; 85610; 85730; 86140; 86376; 87040; 87077; 87086; 87150; 87186; 87205; 87640; 87641; 89051; 90686; 90945; 93005; 94640; 96365; 96375; 99284; A9270-GY; G0257; G8978-GP-CI; G8979-GP-CH; J0696; J0744; J1580; J1644; J2060; J2405; J3370; Q9967

== ENCOUNTER 2019-10-15 05:31 | Day surgery (SDC) | payer MEDICARE, MEDICAID ==
--- NOTE | 2019-10-13 18:12 | HP ---
HISTORY AND PHYSICAL: DATE OF ADMISSION: 10/15/19 CHIEF COMPLAINT: End-stage renal disease. HISTORY OF PRESENT ILLNESS: The patient is a 43-year-old female with end-stage renal disease, currently on peritoneal dialysis. The renal disease is secondary to polycystic kidney disease. The patient had placement of [place] arteriovenous graft approximately 2 years ago, was undergoing hemodialysis via this right arm graft that occluded and after 2 attempts of declotting and revision, the graft was to the end of the use and the patient at that point had been started on peritoneal dialysis. The patient is currently using peritoneal dialysis, but has been referred for an AV fistula as a backup because the patient had had admissions for sepsis related to infected polycystic kidney and the potential for the peritoneal dialysis catheter to become infected. For this reason, the patient was referred for placement of a fistula as a backup. The patient is currently being admitted for a left arm first stage basilic brachial arteriovenous fistula to then subsequently convert into a basilic vein transposition. PAST MEDICAL HISTORY: Remarkable for polycystic disease of the kidney, hypertension, depression, neuropathy. CURRENT MEDICATIONS: Include: 1. Tylenol with Codeine No.3 as needed. 2. Baclofen 10 mg p.o. daily. 3. Breo Ellipta 100/25 mcg inhaler as needed. 4. Cartia XT 240 mg p.o. daily. 5. Cetirizine 10 mg p.o. daily. 6. Citalopram 10 mg p.o. daily. 7. Furosemide 10 mg p.o. daily. 8. Ipratropium bromide and albuterol 0.5 mg inhaler as needed. 9. Lisinopril 40 mg p.o. daily. 10. Lorazepam 2 mg p.o. p.r.n. 11. Magnesium oxide 400 mg p.o. daily. 12. Montelukast 10 mg p.o. daily. 13. Mupirocin 2% apply once daily. 14. Nortriptyline 25 mg p.o. daily. 15. Omeprazole 40 mg p.o. daily. 16. Ropinirole 0.25 mg p.o. daily. 17. Simvastatin 20 mg p.o. daily. 18. Zofran 4 mg p.o. daily. ALLERGIES: The patient is allergic to MORPHINE. FAMILY HISTORY: Mother with polycystic disease. REVIEW OF SYSTEMS: Contributory for: Kidneys: Polycystic disease, end-stage renal disease. Cardiovascular: Hypertension. Neurologic: Neuropathy and depression. PHYSICAL EXAMINATION VITAL SIGNS: The patient's height is 67 inches, weight 223 pounds, blood pressure 129/87, BMI of 34.9, pulse of 86, respirations of 18. HEAD AND NECK: Reveal no neck nodes or masses. LUNGS: Clear to auscultation bilaterally. ABDOMEN: Soft and depressible with a dialysis catheter in place. EXTREMITIES: Lower extremity examination is unremarkable. No edema. Upper extremities: The patient has excellent palpable pulses in the upper extremities. There is an old graft on the right forearm. This is clotted and not useful anymore. The patient's left arm reveals excellent palpable pulses. In the upper extremity vein mapping, the left arm reveals a basilic vein in the upper segment of 3.8 mm, in the mid arm of 3.6 mm, in the lower segment 4.4 mm, and at the elbow 4 mm. This appears to be the best vein for an arteriovenous fistula and the plan is to proceed with a first-stage brachiobasilic fistula of the left arm. DIAGNOSTIC IMPRESSION: End-stage renal disease. PLAN: The plan is to proceed with first-stage brachiobasilic fistula with a subsequent transposition for chronic hemodialysis. The fistula is for a backup hemodialysis as the patient is currently undergoing peritoneal dialysis. The patient understands the potential complications including but not exclusive of others such as recurrence, bleeding, infection, and obstruction. The patient understands, agrees and wishes to proceed. [id number]/[facility] #: [id number] MTDD
[~2019-10-15 05:31] MED LIST changes: -Alteplase 10 mg/10 mL (for intra-op IR use only, onetime) ONE; +Buffered Lidocaine 1% SYRIN* 1 ML/SYRINGE INTRADERM ONE; -HYDROcodone/ACETAMIN 5-325 MG* 1 TAB PO ONE; -Heparin 2 UNITS/ML IVPREMIX* 3,000 UNIT/1,500 ML BAG IV ONE; -Heparin(*) 1000 UNIT/ML 10 ML VIAL CATH LAB IV ONE; -Iodixanol 320 (CONTRAST) 100 ML SDV ONE; -LORazepam TAB(*) 1 MG ONE; -Lidocaine 1% INJ* 10 MG/ML 30 ML SDV ONE; -Midazolam* 1 MG/ML 5 ML VIAL (5 MG) ONE; -fentaNYL* 50 MCG/ML 2 ML VIAL (100 MCG VIAL) ONE
[2019-10-15] MEDS ORDERED: Lactated Ringers 1000 ML Bag* 1,000 ML IV SCH (06:00)
[2019-10-15] MEDS ORDERED: Acetaminophen TAB* 325 MG PO ONE (06:00)
[2019-10-15] MEDS ORDERED: Acetaminophen TAB* 325 MG ONE (06:22)
[2019-10-15] MEDS ORDERED: ceFAZolin 2 GM in NS PREMIX(*) 2 GM/100 ML BAG IVPB ONE (06:22)
[2019-10-15] MEDS ORDERED: Buffered Lidocaine 1% SYRIN* 1 ML/SYRINGE INTRADERM ONE (06:22)
[2019-10-15] MEDS ORDERED: Lidocaine 2% PF * 5 ML VIAL ONE (07:10)
[2019-10-15] MEDS ORDERED: Midazolam* 1 MG/ML 2 ML VIAL (2 MG) ONE (07:10)
[2019-10-15] MEDS ORDERED: Propofol* 500 MG/50 ML BTL ONE (07:10)
[2019-10-15] MEDS ORDERED: Bupivacaine 0.25% SDV* 30 ML ONE (07:14)
[2019-10-15] MEDS ORDERED: Lidocaine 1% INJ* 10 MG/ML 30 ML SDV ONE (07:14)
[2019-10-15] MEDS ORDERED: Heparin VIAL(*) 5000 UNITS/ML VIAL (FIVE THOUSAND) ONE (07:14)
[2019-10-15] MEDS ORDERED: Heparin 2 UNITS/ML IVPREMIX* 1,000 ML IV ONE (07:15)
[2019-10-15 07:41] LABS: Potassium 5.5 mmol/L (3.5-5.0)
[2019-10-15 08:06] LABS: HCG Pregnancy 1.82 mIU/mL
[2019-10-15] MEDS ORDERED: fentaNYL* 50 MCG/ML 2 ML VIAL (100 MCG VIAL) ONE (08:23)
[2019-10-15] MEDS ORDERED: Ondansetron INJ* 2 MG/ML VIAL IV PRN (08:46)
[2019-10-15] MEDS ORDERED: oxyCODONE TAB* 5 MG TAB PO PRN (08:46)
[2019-10-15] MEDS ORDERED: Naloxone* 0.4 MG/ML 1 ML VIAL IV PRN (08:46)
[2019-10-15] MEDS ORDERED: Phenylephrine 10 MG/ML VIAL* 1 ML VIAL ONE ×2 (09:01→10:05)
[2019-10-15] MEDS ORDERED: EPHEDrine (Pressors)* 50 MG/ML VIAL ONE (09:04)
[2019-10-15] MEDS ORDERED: Propofol* 10 MG/ML 20 ML BTL ONE (10:17)
[2019-10-15] MEDS ORDERED: oxyCODONE TAB* 5 MG TAB ONE (10:43)
[2019-10-15] MEDS ORDERED: Ondansetron INJ* 2 MG/ML VIAL ONE (11:27)
[2019-10-15 11:49] VITALS: BP 109/74
--- NOTE | 2019-10-15 15:19 | OP ---
DATE OF OPERATION: 10/15/19 [facility] DATE OF : 75 SURGEON: Abraham Barajas MD ARMATURE REPAIRER: Jessa Meraz NP ANESTHESIA: Local plus MAC. PRE-OP DIAGNOSIS: End-stage renal disease. POST-OP DIAGNOSIS: End-stage renal disease. OPERATIVE PROCEDURE: Left arm brachiobasilic arteriovenous fistula (first stage basilic vein transposition). ESTIMATED BLOOD LOSS: Less than 10 cc. INDICATIONS: The patient is a 43-year-old female with end-stage renal disease, currently undergoing peritoneal dialysis. The patient is being brought in for a brachiobasilic fistula as a first stage basilic vein transposition for a fistula backup for hemodialysis. DESCRIPTION OF PROCEDURE: The patient was taken to the procedure room. She was placed in a supine position. She underwent proper identification of patient , site of surgery, and proper timeout. The patient was prepped and draped in the usual sterile fashion under sedation, and after this was done, timeout was performed, and we then proceeded to infiltrate lidocaine 1% on the medial aspect of the left arm- forearm junction in the area of the basilic vein and brachial artery. After this was done and good level of local anesthetic was given, an oblique incision was performed in this area. The incision was carried down through the skin and subcutaneous tissue. The dissection was carried down to the basilic vein. The basilic vein was then exposed. The branches were then double clipped proximally and distally and divided, and after the vein was encircled in vessel loops, we then proceeded to expose the brachial artery which was then encircled in vessel loops proximally and distally. After this was completed, the patient received 3000 units hepatic and we then proceeded to cross clamp the brachial artery proximally and distally and arteriotomy was performed with an 11 blade and extended with Jacome scissors. The end of the basilic vein was then clipped distally and then divided and spatulated to perform the end-to-side anastomosis which was done with 7-0 Prolene in a parachute technique. After this was completed, the flow was established in the vein, and again prior to the anastomosis, the vein was dilated with coronary dilators, the 3.5 mm dilator would go easily into the vein , and after the anastomosis was then completed, again in a continuous parachute technique, flow was established into the basilic vein. Excellent flow was noted. Distal pulses were palpable. The area was checked for hemostasis. No bleeding was noted. The incision was then closed in layers, subcutaneous tissue with 4-0 Vicryl suture and the skin with a subcuticular 5-0 Monocryl and Steri-Strips. The patient tolerated the procedure well and she was taken in good condition to the recovery room. [id number]/[facility] #: [id number] JOSSELINE
== END 2019-10-15 12:05 | disposition home or self-care (01) ==
LOC: OR 05:31
PROVIDERS: ATTEND Surgery
DX: I12.9 Hypertensive chronic kidney disease with stage 1 through stage 4 chronic kidney disease, or unspecified chronic kidney disease (principal); N18.6 End stage renal disease; Q61.3 Polycystic kidney, unspecified; Z99.2 Dependence on renal dialysis; E78.00 Pure hypercholesterolemia, unspecified; K21.9 Gastro-esophageal reflux disease without esophagitis; F32.9 Major depressive disorder, single episode, unspecified; E87.1 Hypo-osmolality and hyponatremia; G62.9 Polyneuropathy, unspecified
CPT/HCPCS: 36415; 80051; 81025; 84702; A9270-GY; J0690; J1644; J2250; J2405; J2704; J3010; J3490

== ENCOUNTER 2019-11-29 10:52 | Inpatient (IN) | payer MEDICARE, MEDICAID ==
--- NOTE | 2019-11-29 11:08 | ED ---
Abdominal Pain/Female - HPI Summary HPI Summary: This patient is a 43 year old female brought in by EMS with a Hx of end-stage renal disease presenting to [facility] with a chief complaint of abdominal pain. The patient states she has a peritoneal hernia she is managing with Dr. Lopez, Surgery which is causing her the pain. She states she has had the hernia since August but has not been reducible since yesterday. She states she has tried pain medication to no relief. She states the pain she is having now is not different from the pain she has typically had with the hernia. She states Dr. Lopez would like to hold off on surgery for now. EMS administered fentanyl. She denies back pain and SOB. She is on peritoneal dialysis with her last treatment last night which was stopped at 0800 today. She reports no complications with infusion or drainage. Patient's medications reviewed this visit. - History of Current Complaint Stated Complaint: ABD PAIN PER EMS Hx Obtained From: Patient Hx Last Menstrual Period: [id number] Onset/Duration: Lasting Days, Still Present Location: Suprapubic Allergies/Adverse Reactions: Allergies Allergy/AdvReac Type Severity Reaction Status Date / Time morphine Allergy Severe Difficulty Verified 10/15/19 06:31 Breathing Home Medications: Home Medications Fluticasone/Vilanterol MDI(NF) [Breo Ellipta MDI (NF)] 1 puff INH DAILY [History Confirmed 11/29/19] Ipratropium/Albuterol Sulfate [Iprat-Albut 0.5-3(2.5) mg/3 ml] 3 ml INH Q6HR PRN 11/29/19 [History Confirmed 11/29/19] LORazepam(nf) [Ativan TAB(nf)] 2 mg PO DAILY PRN 11/29/19 [History Confirmed ] Lisinopril TAB* [Prinivil TAB*] 20 mg PO DAILY 11/29/19 [History Confirmed 11/29] Magnesium Oxide TAB* [MagOx 400 TAB*] 400 mg PO BID 11/29/19 [History Confirmed 11/29/19] Ondansetron TAB* [Zofran 4 MG Tab*] 4 mg PO Q6H PRN 11/29/19 [History Confirmed 11/29/19] Ropinirole TAB* [Requip TAB*] 0.25 mg PO BEDTIME 11/29/19 [History Confirmed ] Simvastatin TAB(NF) [Zocor(NF)] 20 mg PO DAILY 11/29/19 [History Confirmed 11/29] Sulfamethox/Trimethoprim SS* [Bactrim SS 400/80 TAB*] 1 tab PO DAILY PRN [History Confirmed 11/29/19] dilTIAZem HCl [Diltiazem 24Hr ER] 120 mg PO DAILY 11/29/19 [History Confirmed ] oxyCODONE/Acetamin 5/325 MG* [Percocet 5/325 TAB*] 1 tab PO BID PRN 11/29/19 [ History Confirmed 11/29/19] rOPINIRole TAB* [Requip TAB*] 1 mg PO BEDTIME 11/29/19 [History Confirmed ] PMH/Surg Hx/FS Hx/Imm Hx Endocrine/Hematology History: Reports: Hx Thyroid Disease - hypothyroid Denies: Hx Bone Marrow Disease, Hx Diabetes, Hx Sickle Cell Disease, Hx Anemia Cardiovascular History: Reports: Hx Hypertension - on medication for, Other Cardiovascular Problems/Disorders - Right forearm AV Fistula Denies: Hx Angina, Hx Cardiomegaly, Hx Congestive Heart Failure, Hx Coronary Artery Disease, Hx Pacemaker/ICD, Hx Peripheral Vascular Disease, Hx Rheumatic Fever, Hx Valvular Heart Disease Respiratory History: Reports: Hx Asthma - has rescue inhalers Denies: Hx Chronic Obstructive Pulmonary Disease (COPD), Hx Pulmonary Edema, Hx Pulmonary Embolism, Hx Sleep Apnea, Other Respiratory Problems/Disorders GI History: Reports: Hx Gastroesophageal Reflux Disease - omeprazole Denies: Hx Cirrhosis, Hx Crohn's Disease, Hx Hiatal Hernia, Hx Irritable Bowel, Hx Jaundice, Hx Ulcer, Other GI Disorders History: Reports: Hx Chronic Renal Failure, Hx Dialysis - DAILY, Hx Kidney Infection - Pyelonephritis 07/22, Hx Renal Disease - PD CATH Denies: Hx Kidney Stones, Other Problems/Disorders Musculoskeletal History: Denies: Hx Arthritis, Hx Bursitis, Hx Osteoporosis, Hx Tendonitis, Other Musculoskeletal History Sensory History: Denies: Hx Cataracts, Hx Contacts or Glasses, Hx Glaucoma, Hx Hearing Aid Opthamlomology History: Denies: Hx Cataracts, Hx Contacts or Glasses, Hx Glaucoma Neurological History: Reports: Hx Migraine - pt states migraines have improved, Hx Transient Ischemic Attacks (TIA) Denies: Hx Headaches, Hx Nerve Disease, Hx Seizures, Other Neuro Impairments/ Disorders Psychiatric History: Reports: Hx Anxiety - on medication for, Hx Panic Disorder Denies: Hx Depression - Cancer History Hx Chemotherapy: No - Surgical History Surgery Procedure, Year, and Place: RIGHT ARM FISTULA-03/2018-[facility] – [place]. PD port placement 06/2018. HERNIA 2018. PD catheter removal and reinsertion in 2019. Fistula repair. 06/18/19 Fistula repair Hx Anesthesia Reactions: No - Immunization History Date of Influenza Vaccine: 08/20 Infectious Disease History: Denies: Hx Clostridium Difficile, Hx Hepatitis, Hx Human Immunodeficiency Virus (HIV), Hx of Known/Suspected MRSA, Hx Shingles, Hx Tuberculosis, Hx Known/ Suspected VRE, Hx Known/Suspected VRSA, History Other Infectious Disease - Family History Known Family History: Positive: Hypertension, Renal Disease - Social History Alcohol Use: None Substance Use Type: Reports: None Smoking Status (MU): Former Smoker Type: Cigarettes Amount Used/How Often: 1/2 ppd smoked for 20 years Have You Smoked in the Last Year: No Review of Systems Negative: Shortness Of Breath Positive: Abdominal Pain Positive: Other - Neg: Back pain All Other Systems Reviewed And Are Negative: Yes Physical Exam Triage Information Reviewed: Yes Vital Signs Reviewed: Yes Procedures - Sedation Patient Received Moderate/Deep Sedation with Procedure: No Diagnostics - Laboratory Lab Statement: Any lab studies that have been ordered have been reviewed, and results considered in the medical decision making process. - Radiology Abdomen XR Radiology Interpretation Completed By: Radiologist Summary of Radiographic Findings: NO EVIDENCE FOR OBSTRUCTION OR FREE INTRAPERITONEAL AIR. Dr. Moreau has reviewed this radiology report. - CT A/P CT Interpretation Completed By: Radiologist Summary of CT Findings: 1. JUST ABOVE THE UMBILICUS, THE ANTERIOR ABDOMINAL WALL HERNIA CONTAINS FAT AND FLUID. THE SAC IS INCREASED IN SIZE FROM COMPARISON IMAGING. THE HERNIA NECK MEASURES 2.4 X 2.0 CM. 2. TRACE NEW PERIHEPATIC, PERISPLENIC AND PELVIC ASCITES OF WATER ATTENUATION ABOVE. THE COILED PERITONEAL CATHETER TERMINATES IN THE PELVIS. 3. INNUMERABLE HEPATORENAL CYSTS (INCOMPLETE EVALUATED WITHOUT CONTRAST). 4. AN IUD IS IN PLACE. Dr. Moreau has reviewed this radiology report. - Ultrasound Abdomen US Ultrasound Interpretation Completed By: Radiologist Summary of Ultrasound Findings: INTERVAL ENLARGEMENT OF THE PERIUMBILICAL HERNIA SAC. NO PERISTALSIS IS SEEN WITHIN THE SAC. THERE IS AN AREA OF INCREASED ECHOGENICITY WITHIN THE HERNIA WHICH MOST LIKELY REPRESENTS FAT. CT IMAGING WOULD BE MORE SPECIFIC TO EXCLUDE HERNIATED BOWEL. Dr. Moreau has reviewed this radiology report. Re-Evaluation - Re-Evaluation First Eval Re-Evaluation Time: 15:19 Comment: Discussed patient case with Dr. Lopez, surgeon, who said he will come see the patient in the ED. Second Eval Re-Evaluation Time: 16:19 Comment: While I was in another patient room, Dr. Lopez evaluated the patient and took the patient up to the OR. Abdominal Pain Fem Course/Dx - Provider Notifications Discussed Care Of Patient With: Rodri Chavira - Radiologist Time Discussed With Above Provider: 13:30 Instructed by Provider To: Other - Per Dr. Chavira, radiologist, patient will need a CT A/P. At 1519, discussed patient case with Dr. Lopez, surgeon, who stated he will come see the patient. Discharge ED - Sign-Out/Discharge Documenting (check all that apply): Patient Departure - Admit - Discharge Plan Condition: Fair Disposition: ADMITTED TO [facility] Referrals: Regi Garnica [Primary Care Provider] - - Attestation Statements Document Initiated by Scribe: Yes Documenting Scribe: Partha Mcintyre and Bijan Montanez Provider For Whom Scribe is Documenting (Include Credential): Yesenia Moreau MD Scribe Attestation: Partha Terry and Bijan Montanez, scribed for Yesenia Moreau MD on 11/29/19 at 1621.
--- OUTSIDE RECORDS SUMMARY | 2019-11-29 11:09 | XMS REPORT | Continuity of Care Document ---
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 Active Problems Provider Date Migraine with typical aura Carly Goodrich MD Onset: 10/31/2015 Alopecia Carly Goodrich MD Onset: 01/31/2016 History of cerebrovascular accident without Carly Goodrich MD Onset: 06/13/2017 residual deficits Headache Carly Goodrich MD Onset: 06/13/2017 Muscle pain Carly Goodrich MD Onset: 06/13/2017 Occlusion and stenosis of middle cerebral artery Carly Goodrich MD Onset: 07/11 with infarction Abnormal results function studies of central Carly Goodrich MD Onset: 2017 nervous system Social History Type Date Description Comments Sex Unknown ETOH Use Rarely consumes alcohol Tobacco Use Start: Unknown End: Patient is a former quit in 2013 Unknown smoker Recreational Drug Use Never Used Drugs Smoking Status Reviewed: 11/18/19 Patient is a former quit in 2013 smoker Exercise Type/Frequency Exercises rarely Allergies, Adverse Reactions, Alerts Active Allergies Reaction Severity Comments Date Morphine shortness of breath, tightness whole Severe 06/11/2019 body Inactive Allergies NKDA 10/31/2015 Medications Active Medications SIG Qnty Indications Ordering Date Provider Lisinopril 1 tab by mouth 90tabs Mohammad A. 10/21/2019 20mg Tablets daily at bedtime MD Adam Cipro one by mouth 5tabs Carmella Ventura MD 10/08/2019 500mg Tablets daily for five days B12 Fast Dissolve sl daily 90tabs Shakeel Knox, 08/31/2017 5000mcg M.D. Tablets Dispers Nortriptyline HCL take 1 capsules 60caps G43.109 Carly Goodrich MD 2014 25mg at night Capsules Aspirin Low Dose take 1 chew tab Unknown 81mg by mouth every Chewtabs day Simvastatin 1 tablet by mouth Unknown 20mg Tablets daily Magnesium Oxide -MG 1 by mouth every Unknown Supplement day 400mg Capsules Cartia XT 1 by mouth every Unknown 240mg Caps ER day 24HR Cetirizine HCL 1 tab po Unknown 10mg Chewtabs Vitamin D 2 by mouth every Unknown (Cholecalciferol) day 1000Unit Capsules Baclofen take 1/2 tab Unknown 10mg Tablets every 8 hours as needed for muscle spasm Furosemide 1 by mouth in the Unknown 20mg Tablets morning Percocet as needed pain Unknown 5-325mg Tablets Albuterol Sulfate as needed Unknown (2.5mg/3ML) 0.083% Nebulizer Ipratropium [place] as needed Unknown 0.02% Solution Ventolin HFA 2 puffs by mouth Unknown 108(90Base) four times a day mcg/Act Aerosol as needed Escitalopram Oxalate 1 by mouth every Unknown 10mg day Tablets Omeprazole 1 by mouth every Unknown 40mg Capsules day DR Montelukast Sodium 1 by mouth every Unknown 10mg day Tablets Calcitriol 1 by mouth every Unknown 0.25mcg day Capsules Medications Administered in Office Medication SIG Qnty Indications Ordering Provider Date Inj, Regadenoson, 0.1 MG Tenzin Mckeon M.D., 06/11/2019 Injection ARVIN NG Technetium TC 99M Tenzin Mckeon M.D., 06/11/2019 Tetrofosmin, Per Unit Dose ARVIN NG Up To 40 Millicuries Injection Technetium TC 99M Tenzin Mckeon M.D., 06/11/2019 Tetrofosmin, Per Unit Dose ARVIN NG Up To 40 Millicuries Injection Immunizations Description No Information Available Vital Signs Date Vital Result Comment 11/18/2019 9:41am Height 67 inches 5'7" Weight 230.00 lb Heart Rate 68 /min BP Systolic Sitting 124 mmHg BP Diastolic Sitting 72 mmHg Respiratory Rate 16 /min Body Temperature 97.3 F BMI (Body Mass Index) 36.0 kg/m2 11/04/2019 9:31am Heart Rate 84 /min BP Systolic 124 mmHg BP Diastolic 80 mmHg Respiratory Rate 16 /min Body Temperature 97.4 F Results Test Acquired Date Facility Test Result H/L Range Note Urinalysis Profile 10/08/2019 [facility] Urine Color Yellow [address] [place] [address] [phone] Urine Appearance Cloudy Urine Specific Arco 1.010 Normal 1.010-1.030 Urine pH 8.0 Normal 5-9 Urine Urobilinogen Negative Negative Urine Ketones Negative Negative Urine Protein 2+(100 mg/dL) Abnormal Negative Urine Leukocytes 2+ Abnormal Negative Urine Blood 1+ Abnormal Negative Urine Nitrite Negative Negative Urine Bilirubin Negative Negative Urine Glucose Negative Negative Urine White Blood Cell 3+(>20/hpf) Abnormal Absent Urine Red Blood Cell 2+(6-10/hpf) Abnormal Absent Urine Bacteria Absent Absent Urine Squamous Epithelial Cell Present Abnormal Absent Urine Culture And 10/08/2019 [facility] Urine Culture SEE RESULT [address] [place] [address] [phone] Lipid Profile 08/20/2019 N2N/CCD Import Cholesterol 84 0 - 199 Triglycerides 117 0 - 149 HDL 17 Low 40 - 60 Chol/HDL Ratio 4.9 3.3 - 5 LDL 44 0 - 99 VLDL-Chol (Calc) 23 0 - 29 PTH Intact 08/20/2019 N2N/CCD Import PTH Intact 168 High 18 - 80 Hep B Surfce Ag 08/20/2019 N2N/CCD Import Hep B Surfce Ag Neg Neg Ferritin 08/20/2019 N2N/CCD Import Ferritin 1370 High 10 - 291 Iron Panel 08/20/2019 N2N/CCD Import Iron 10 Low 50 - 170 Iron Saturation 6 Low 16 - 46 Tibc 168 Low 250 - 450 Uibc 158 80 - 375 Chem I HD 08/20/2019 N2N/CCD Import Alk Phos 252 High 46 - 116 Albumin 2.4 Low 3.2 - 4.8 Calcium 7.7 Low 8.7 - 10.4 Chloride 85 Low 99 - 109 Co2 25 20 - 31 LDH, Total 201 120 - 246 Phosphorus 6.9 High 2.4 - 5.1 Potassium 3.8 3.5 - 5.5 Ast/Sgot 32 0 - 34 Protein - Total 4.9 Low 5.7 - 8.2 A/G Ratio 1.0 1 - 2.5 Globulin 2.5 0.9 - 5 Caxphos Product 53.1 High 21 - 53 [place]os Corrected 62.1 High 21 - 53 Calcium Corrected 08/20/2019 N2N/CCD Import Calcium 9.0 8.7 - 10.4 Corrected CBC With Autodiff 08/20/2019 N2N/CCD Import Monos-Abs 1255.50 High 0 - 1100 Basos-Abs 54.00 0 - 400 Eosins-Abs 162.00 0 - 700 HCT Calc (HGBX3) 34.2 Low 37.0 - 47.0 Basophils 0.4 Neutrophils 85.7 Lymphocytes 3.4 Monocytes 9.3 Eosinophils 1.2 RDW 17.1 High 11.0 - 15.0 WBC 13.5 High 4.5 - 11.0 RBC 3.51 Low 4.20 - 5.40 Hematocrit 35.7 Low 37.0 - 47.0 Hemoglobin 11.4 Low 12.0 - 16.0 MCV 101.8 High 80.0 - 100.0 MCH 32.4 High 27.0 - 31.0 MCHC 31.8 Low 32.0 - 36.0 Platelet-CT 262 150 - 400 Neuts-Abs 57174.50 High 2000 - 8800 Lymphs-Abs 459.00 Low 1100 - 4800 C[place]os Corrected 07/07/2019 N2N/CCD Import [place] Corrected 42.2 21 - 46 Calcium Corrected 07/07/2019 N2N/CCD Import Calcium Corrected 9.6 8.7 - 10.4 CBC With Autodiff 07/07/2019 N2N/CCD Import WBC 8.4 4.5-11.0 RBC 5.5 4.60-6.20 Hematocrit 54 High 33.0-36.0 Hemoglobin 18.6 High 14.0-18.0 Chem I HD 07/07/2019 N2N/CCD Import Albumin 4.1 3.5-5.0 Calcium 9.6 8.4-10.2 Chloride 103 98-107 Co2 21 Low 22-33 Phosphorus 4.4 2.5-4.5 Potassium 5.1 High 3.5-5.0 Hepatitis B Surface 07/07/2019 N2N/CCD Import Hepatitis B Negative Negative Antigen Surface Antigen Comprehensive 07/07/2019 N2N/CCD Import Alt 6 Low 7-52 Metabolic Panel Alkaline Phosphatase 66 34-104 Total Bilirubin 0.40 0.2-1.0 Albumin/Globulin Ratio 1.5 1-3 Globulin 2.7 2-4 Albumin 4.1 3.2-5.2 Total Protein 6.8 6.4-8.9 Calcium 9.6 8.6-10.3 BUN/Creatinine Ratio 5.7 Low 8-20 One Over Creatinine 0.13 Creatinine 7.25 High 0.51-0.95 Blood Urea Nitrogen 41 High 6-24 Glucose 104 High 70-100 Anion Gap 14 High 2-11 Co2 Carbon Dioxide 21 Low 22-32 Chloride 103 101-111 Potassium 5.1 High 3.5-5.0 Sodium 138 135-145 Egfr 7.4 >60 Egfr Non- 6.2 >60 Ast 12 Low 13-39 Phosphorus 07/07/2019 N2N/CCD Import Phosphorus 4.4 2.5-5.0 Iron Panel 07/07/2019 N2N/CCD Import Iron 79 65-170 Iron Saturation 28 20-55 Tibc 279 228-428 Uibc <264 159-193 Iron Iron Bind Cap 07/07/2019 N2N/CCD Import % Iron Saturation 28 15- 55 Transferrin 199 Low 203-362 Total Iron Binding Capacity 279 250-450 Unsaturated Iron Binding < 264 Iron 79 50-212 CBC Auto Diff 07/07/2019 N2N/CCD Import Nucleated Red Blood Cells % 0.2 Basophil % 0.8 Eosinophil % 5.3 Monocyte % 9.1 Lymphocyte % 18.1 Granulocyte % 66.7 Abs Nucleated RBC 0.0 Abs Basophils 0.1 0-0.2 Abs Eosinophils 0.4 0-0.6 Abs Monocytes 0.8 0-0.8 Abs Lymphocytes 1.5 1.0-4.8 Abs Neutrophils 5.6 1.5-7.7 Mean Platelet Volume 10.6 High 7.4-10.4 Platelet Count 118 Low 150-450 Red Cell Distribution Width 16 High 10-15 Mean Corpuscular HGB Conc 34 31-36 Mean Corpuscular Hemoglobin 34 High 27-31 Mean Corpuscular Volume 99 High 80-97 Hematocrit 54 High 35-47 Hemoglobin 18.6 High 12.0-16.0 Red Blood Count 5.50 High 3.70-4.87 White Blood Count 8.4 3.5-10.8 Potassium 06/24/2019 N2N/CCD Import Potassium 5.4 3.5 - 5.5 Iron Panel 06/24/2019 N2N/CCD Import Iron 75 50 - 170 Iron Saturation 27 16 - 46 Tibc 276 250 - 450 Uibc 201 80 - 375 HGB + HCT 06/24/2019 N2N/CCD Import Hematocrit 54.0 High 37.0 - 47.0 Hemoglobin 17.6 High 12.0 - 16.0 HCT Calc (HGBX3) 52.8 High 37.0 - 47.0 0416 06/16/2019 N2N/CCD Import BUN 37 High 9 - 23 Creatinine 7.02 High 0.50 - 1.10 NPCR PD 0.67 Creat-PD 2.17 Urea-PD 22 Urea CLR Ur/Bsa 4.1 Low 64 - 99 Cre CLR Ur/Bsa 7 Low 75 - 115 Urea CLR Ur 4.7 Minuts Collctd-Ur 1440 Tot.Vol.-Urine 1250 Tot.Vol.-PDF 53347 Urea Gen Rate 7.9 Urea Nit Urine 201 Creat-Ur 61.74 Body WT (LBS) 233 Height (Inches) 59 TBW Hdz 40.04 Pna (PD) 55.1 Npna-PD 0.80 Pily (PD) 5.3 Min Goal:KT/V PD 2.1 PCR PD 46.2 Amputation Factor 0.000 Cre CLR Ur 8 Low 88 - 128 L/WK/1.73 Resid cc 54.68 L/WK PDF cc 27.44 L/WK/1.73 Total cc 78.79 L/WK Resid cc 62.24 L/WK/1.73 PDF cc 24.11 L/WK Total cc 89.69 KT/V PDF 1.32 KT/V Residual 1.19 KT/V Total PD 2.51 STDKDT/V Dialysis 06/16/2019 N2N/CCD Import STDKDT/V Dialysis N/A Weight (KG) 06/16/2019 N2N/CCD Import Weight (KG) 104.0 STDKT/V Total 06/16/2019 N2N/CCD Import STDKT/V Total N/A Glucose 06/16/2019 N2N/CCD Import Glucose 83 70 - 99 Age Of Patient 06/16/2019 N2N/CCD Import Age Of Patient 43 Alt/SGPT 06/16/2019 N2N/CCD Import Alt/SGPT 16 10 - 49 Calcium Corrected 06/16/2019 N2N/CCD Import Calcium Corrected 9.3 8.7 - 10.4 KRT/V Renal 06/16/2019 N2N/CCD Import KRT/V Renal N/A SPKT/V Total 06/16/2019 N2N/CCD Import SPKT/V Total N/A STDKRT/V Renal 06/16/2019 N2N/CCD Import STDKRT/V Renal N/A Ekdt/V Dialysis 06/16/2019 N2N/CCD Import Ekdt/V Dialysis N/A Chem I HD 06/16/2019 N2N/CCD Import Alk Phos 67 46 - 116 Albumin 4.3 3.2 - 4.8 Calcium 9.3 8.7 - 10.4 Chloride 103 99 - 109 Co2 23 20 - 31 Phosphorus 4.1 2.4 - 5.1 Protein - Total 6.6 5.7 - 8.2 A/G Ratio 1.9 1 - 2.5 Globulin 2.3 0.9 - 5 Caxphos Product 38.1 21 - 53 [place] Corrected 38.1 21 - 53 Gender 06/16/2019 N2N/CCD Import Gender F CBC With Autodiff 06/16/2019 N2N/CCD Import RBC 5.54 High 4.20 - 5.40 Hematocrit 55.1 High 37.0 - 47.0 Hemoglobin 18.4 High 12.0 - 16.0 MCV 99.5 80.0 - 100.0 MCH 33.3 High 27.0 - 31.0 MCHC 33.5 32.0 - 36.0 Platelet-CT 142 Low 150 - 400 Neuts-Abs 3968.88 2000 - 8800 Lymphs-Abs 999.12 Low 1100 - 4800 Monos-Abs 353.28 0 - 1100 Basos-Abs 44.16 0 - 400 Eosins-Abs 154.56 0 - 700 HCT Calc (HGBX3) 55.2 High 37.0 - 47.0 Basophils 0.8 Neutrophils 71.9 Lymphocytes 18.1 Monocytes 6.4 Eosinophils 2.8 RDW 14.8 11.0 - 15.0 WBC 5.5 4.5 - 11.0 SPKDT/V Dialysis 06/16/2019 N2N/CCD Import SPKDT/V Dialysis N/A Race 06/16/2019 N2N/CCD Import Race C Poc Activated 06/08/2019 N2N/CCD Import Poc Act 243 Clotting Time Laboratory test 06/08/2019 [facility] Poc Activated 243 seconds [address] [address] [phone] 0413 05/28/2019 N2N/CCD Import Urea-PD 32 Urea CLR Ur/Bsa 1.0 Low 64 - 99 BUN 50 High 9 - 23 Creatinine 8.74 High 0.50 - 1.10 NPCR PD 0.62 Creat-PD 2.87 Cre CLR Ur/Bsa 3 Low 75 - 115 Urea CLR Ur 1.2 Minuts Collctd-Ur 1440 Tot.Vol.-Urine 250 Tot.Vol.-PDF 57876 Urea Gen Rate 7.1 Urea Nit Urine 341 Creat-Ur 177.93 Bsa ([place]) 1.97 Body WT (LBS) 234 Height (Inches) 59 TBW Hdz 40.15 Pna (PD) 51.3 Npna-PD 0.74 Pily (PD) 4.8 Min Goal:KT/V PD 2.1 PCR PD 42.9 Amputation Factor 0 Cre CLR Ur 4 Low 88 - 128 L/WK/1.73 Resid cc 20.85 L/WK PDF cc 28.32 L/WK/1.73 Total cc 45.69 L/WK Resid cc 23.78 L/WK/1.73 PDF cc 24.84 L/WK Total cc 52.10 KT/V PDF 1.37 KT/V Residual 0.30 KT/V Total PD 1.67 Glucose 05/28/2019 N2N/CCD Import Glucose 81 70 - 99 1 no growth 2 SEE RESULT BELOW Name: BUFFY TONEY : [address]: Carmella Ventura MD Acct: [id number] Unit: [id number] AGE: 43 Location: [facility] Re10/08/19 SEX: F Status: REG REF SPEC: [id number] ES: 10/08/19-[address]: Carmella Ventura MD REQ: [id number] RECD: 10/08/19-1532 STATUS: COMP _ SOURCE: URINE SPDESC: ORDERED: Urine Culture QUERIES: Urine Source: Random Procedure Result Reported Site Urine Culture Final 10/09/19- 1429 ML No growth of clinically significant organisms * ML - Main Lab . END OF REPORT DEPARTMENT OF PATHOLOGY, [address] [place] [address] Graham Ambrocio M.D. Director [facility] # [id number] 3 Hot Sealing Machine Operator: [id number] Reference Range: 74-125 seconds Procedures Date Code Description Status 11/02/2019 42554 Esrd Services Home Dialysis Per Full Month 20 Yrs Completed 08/06/2019 20315 Dialysis One Evaluation Completed 08/05/2019 47043 Dialysis One Evaluation Completed 08/04/2019 64926 Dialysis One Evaluation Completed 08/03/2019 24504 EKG, Interpretation Only Completed 06/11/2019 24518 Stress Test Completed 06/11/2019 16913 Myocardial Perfusion Imaging Tomographic (Spect) Multiple Completed Studies 06/08/2019 32557 Moderate Sedation Services; Same Phys Intl 15 Mins; PT >= Completed 5 Years 06/08/2019 64886 Ultrasound Guidance For Vascular Access Completed 06/08/2019 62108 Dialysis Circuit [facility] Thromb[facility] W/ Completed Balloon Angio 06/07/2019 50068 ECHO Transthoracic, Real-Time 2D With Doppler And Color Completed Flow 06/07/2019 10251 ECHO Transthoracic, Real-Time 2D With Doppler And Color Completed Flow Medical Devices Description No Information Available Encounters Type Date Location Provider Dx Diagnosis Office Visit 11/04/2019 Surgical Nikhil Salazar K43.2 Incisional hernia 9:00a [facility] MD without obstruction or gangrene Office Visit 09/06/2019 Surgical Marcos Lopez, K43.9 Ventral hernia 10:30a [facility], BAILEE without obstruction or gangrene E66.09 Other obesity due to excess calories Office Visit 08/17/2019 11:15a [facility] Marcos Diaz K42.9 Umbilical hernia [facility] Lopez MD, without BAILEE obstruction or gangrene N18.6 End stage renal disease Office Visit 08/09/2019 [facility] Gabriela N12 Tubulo-interstitial 1:45p MD Arnold nephritis, not spcf as acute or chronic B96.29 Oth Escherichia coli as the cause of diseases classd elswhr E87.1 Hypo-osmolality and hyponatremia D72.829 Elevated white blood cell count, unspecified Office Visit 08/09/2019 10:07a [facility] Florence Dill, B96.20 Unsp Escherichia Assoc,fito MCGILL coli as the cause Hospitalists of diseases classd elswhr N39.0 Urinary tract infection, site not specified N18.6 End stage renal disease Z99.2 Dependence on renal dialysis D72.829 Elevated white blood cell count, unspecified I12.0 Hyp chr kidney disease w stage 5 chr kidney disease or Esrd F41.9 Anxiety disorder, unspecified Office Visit 08/08/2019 10:07a [facility] Partha N39.0 Urinary tract Assoc,fito Moreno M.D. infection, site Hospitalists not specified B96.20 Unsp Escherichia coli as the cause of diseases classd elswhr R42 Dizziness and giddiness E03.9 Hypothyroidism, unspecified F41.9 Anxiety disorder, unspecified N18.6 End stage renal disease Z99.2 Dependence on renal dialysis Office Visit 08/07/2019 10:06a [facility] Partha N39.0 Urinary tract Assoc,fito Moreno M.D. infection, site Hospitalists not specified B96.20 Unsp Escherichia coli as the cause of diseases classd elswhr R42 Dizziness and giddiness N18.6 End stage renal disease Z99.2 Dependence on renal dialysis E03.9 Hypothyroidism, unspecified F41.9 Anxiety disorder, unspecified Office Visit 08/06/2019 10:06a [facility] Partha N39.0 Urinary tract Assfito ricci M.D. infection, site Hospitalists not specified B96.20 Unsp Escherichia coli as the cause of diseases classd elswhr R42 Dizziness and giddiness F41.9 Anxiety disorder, unspecified N18.6 End stage renal disease Z99.2 Dependence on renal dialysis Office Visit 08/05/2019 10:06a [facility] Partha N39.0 Urinary tract Assocfito M.D. infection, site Hospitalists not specified B96.20 Unsp Escherichia coli as the cause of diseases classd elswhr I95.9 Hypotension, unspecified F41.9 Anxiety disorder, unspecified Office Visit 08/04/2019 10:06a [facility] Partha N39.0 Urinary tract Assocfito M.D. infection, site Hospitalists not specified B96.20 Unsp Escherichia coli as the cause of diseases classd elswhr R10.9 Unspecified abdominal pain F41.9 Anxiety disorder, unspecified Office Visit 08/03/2019 10:05a [facility] Partha N39.0 Urinary tract Assoc,fito Moreno M.D. infection, site Hospitalists not specified R31.9 Hematuria, unspecified R10.9 Unspecified abdominal pain F41.9 Anxiety disorder, unspecified N18.6 End stage renal disease Z99.2 Dependence on renal dialysis Office Visit 08/03/2019 1:27p [facility] Nephrology Georgiana Lin N18.6 End stage renal MD Adam disease R31.9 Hematuria, unspecified Office Visit 08/02/2019 [facility] Ricardo Syed R10.9 Unspecified 10:05a Assoc,fito Davis M.D.,FACP abdominal pain Hospitalists R31.0 Gross hematuria E03.9 Hypothyroidism, unspecified F41.9 Anxiety disorder, unspecified N18.6 End stage renal disease Z99.2 Dependence on renal dialysis Q61.2 Polycystic kidney, adult type Assessments Date Code Description Provider 11/04/2019 K43.2 Incisional hernia without obstruction Nikhil Beckwith MD or gangrene 11/02/2019 N18.6 End stage renal disease Georgiana Medina MD 09/06/2019 K43.9 Ventral hernia without obstruction or Marcos Lopez MD, FACS gangrene 09/06/2019 E66.09 Other obesity due to excess calories Marcos Lopez MD, FACS 08/17/2019 K42.9 Umbilical hernia without obstruction Marcos Lopez MD, FACS or gangrene 08/17/2019 N18.6 End stage renal disease Marcos Lopez MD, FACS 08/09/2019 N12 Tubulo-interstitial nephritis, not Gabriela Barrett MD specified as acute or chronic 08/09/2019 B96.20 Unspecified Escherichia coli [Sofy Phelan MD coli] as the cause of diseases classified elsewhere 08/09/2019 B96.29 Other Escherichia coli [E. coli] as Gabriela Barrett MD the cause of diseases classified elsewhere 08/09/2019 N39.0 Urinary tract infection, site not Florence Phelan MD specified 08/09/2019 E87.1 Hypo-osmolality and hyponatremia Gabriela Barrett MD 08/09/2019 D72.829 Elevated white blood cell count, Gabriela Barrett MD unspecified 08/09/2019 Z99.2 Dependence on renal dialysis Florence Phelan MD 08/09/2019 N18.6 End stage renal disease Florence Phelan MD 08/09/2019 D72.829 Elevated white blood cell count, Florence Phelan MD unspecified 08/09/2019 I12.0 Hypertensive chronic kidney disease Florence Phelan MD with stage 5 chronic kidney disease or end stage renal disease 08/09/2019 F41.9 Anxiety disorder, unspecified Florence Phelan MD 08/08/2019 N39.0 Urinary tract infection, site not Partha Moreno M.D. specified 08/08/2019 B96.20 Unspecified Escherichia coli [Sofy Moreno M.D. coli] as the cause of diseases classified elsewhere 08/08/2019 R42 Dizziness and giddiness Partha Moreno M.D. 08/08/2019 E03.9 Hypothyroidism, unspecified Partha Moreno M.D. 08/08/2019 F41.9 Anxiety disorder, unspecified Partha Moreno M.D. 08/08/2019 N18.6 End stage renal disease Partha Moreno M.D. 08/08/2019 Z99.2 Dependence on renal dialysis Partha Moreno M.D. 08/07/2019 N39.0 Urinary tract infection, site not Partha Moreno M.D. specified 08/07/2019 B96.20 Unspecified Escherichia coli [Sofy Moreno M.D. coli] as the cause of diseases classified elsewhere 08/07/2019 R42 Dizziness and giddiness Partha Moreno M.D. 08/07/2019 N18.6 End stage renal disease Partha Moreno M.D. 08/07/2019 Z99.2 Dependence on renal dialysis Partha Moreno M.D. 08/07/2019 E03.9 Hypothyroidism, unspecified Partha Moreno M.D. 08/07/2019 F41.9 Anxiety disorder, unspecified Partha Moreno M.D. 08/06/2019 N18.6 End stage renal disease Georgiana Medina MD 08/06/2019 N39.0 Urinary tract infection, site not Partha Moreno M.D. specified 08/06/2019 K65.9 Peritonitis, unspecified Georgiana Medina MD 08/06/2019 B96.20 Unspecified Escherichia coli [Sofy Moreno M.D. coli] as the cause of diseases classified elsewhere 08/06/2019 Q61.2 Polycystic kidney, adult type Georgiana Medina MD 08/06/2019 R42 Dizziness and giddiness Partha Moreno M.D. 08/06/2019 F41.9 Anxiety disorder, unspecified Partha Moreno M.D. 08/06/2019 N18.6 End stage renal disease Partha Moreno M.D. 08/06/2019 Z99.2 Dependence on renal dialysis Partha Moreno M.D. 08/05/2019 N18.6 End stage renal disease Georgiana Medina MD 08/05/2019 K65.9 Peritonitis, unspecified Georgiana Medina MD 08/05/2019 N39.0 Urinary tract infection, site not Partha Moreno M.D. specified 08/05/2019 Q61.2 Polycystic kidney, adult type Georgiana Medina MD 08/05/2019 B96.20 Unspecified Escherichia coli [Sofy Moreno M.D. coli] as the cause of diseases classified elsewhere 08/05/2019 I95.9 Hypotension, unspecified Partha oMreno M.D. 08/05/2019 F41.9 Anxiety disorder, unspecified Partha Moreno M.D. 08/04/2019 N39.0 Urinary tract infection, site not Partha Moreno M.D. specified 08/04/2019 N18.6 End stage renal disease Georgiana Medina MD 08/04/2019 B96.20 Unspecified Escherichia coli [Sofy Moreno M.D. coli] as the cause of diseases classified elsewhere 08/04/2019 K65.8 Other peritonitis Georgiana Medina MD 08/04/2019 R10.9 Unspecified abdominal pain Partha Moreno M.D. 08/04/2019 F41.9 Anxiety disorder, unspecified Partha Moreno M.D. 08/03/2019 R94.31 Abnormal electrocardiogram [ECG] Román Jules M.D. [EKG] 08/03/2019 N39.0 Urinary tract infection, site not Partha Moreno M.D. specified 08/03/2019 N18.6 End stage renal disease Georgiana Medina MD 08/03/2019 R31.9 Hematuria, unspecified Partha Moreno M.D. 08/03/2019 R31.9 Hematuria, unspecified Georgiana Medina MD 08/03/2019 R10.9 Unspecified abdominal pain Partha Moreno M.D. 08/03/2019 F41.9 Anxiety disorder, unspecified Partha Moreno M.D. 08/03/2019 N18.6 End stage renal disease Partha Moreno M.D. 08/03/2019 Z99.2 Dependence on renal dialysis Partha Moreno M.D. 08/02/2019 R10.9 Unspecified abdominal pain Ricardo Davis M.D.,[facility] 08/02/2019 R31.0 Gross hematuria Ricardo Davis M.D.,[facility] 08/02/2019 E03.9 Hypothyroidism, unspecified Ricardo Davis M.D.,[facility] 08/02/2019 F41.9 Anxiety disorder, unspecified Ricardo Davis M.D.,[facility] 08/02/2019 N18.6 End stage renal disease Ricardo Davis M.D.,[facility] 08/02/2019 Z99.2 Dependence on renal dialysis Ricardo Davis M.D.,[facility] 08/02/2019 Q61.2 Polycystic kidney, adult type Ricardo Davis M.D.,[facility] 06/11/2019 N18.6 End stage renal disease Tenzin Mckeon M.D., [facility] 06/11/2019 Z01.810 Encounter for preprocedural Tenzin Mckeon M.D., cardiovascular examination [facility] 06/08/2019 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 devices, implants and grafts, initial encounter 06/07/2019 N18.6 End stage renal disease Tenzin Mckeon M.D., [facility] 06/07/2019 N18.6 End stage renal disease Traveling ECHO 1 Plan of Treatment 11/04/2019 - Nikhil Beckwith MDK43.2 Incisional hernia without obstruction or gangreneComments:We discussed hernia repair, robotic versus open, the use of mesh versus xenograft and a xenograft/mesh composite. We discussed having to remove the peritoneal dialysis catheter and be on hemodialysis for at least a number of weeks before and after the surgery. We discussed risks including but not limited to bleeding infection, injury to the bowel and complications due to what are likely significantadhesions in the abdomen. She is on the transplant list and will need further surgery. I will discuss with her pension consultant and primary care physician and make plans pending those discussions. At this point repair is only planned due to her symptoms I do not feel she is at significant risk of incarceration or strangulation because of the hernia Functional Status Description No Information Available Mental Status Description No Information Available Referrals Refer to Reason for Referral Status Appt Date Abraham Barajas MD Sent [address] [place] [address] [place] [address] [phone]
--- OUTSIDE RECORDS SUMMARY | 2019-11-29 11:09 | XMS REPORT | Continuity of Care Document ---
:1975 External Reference #:[id number] Author Name Prashanth Davidson PA Address [address] [place] [address] Problems Active Problems Provider Date Mixed hyperlipidemia Eli Oliveira MD Onset: 05/23/2015 Essential hypertension Regi Garnica RN MS FNP Onset: 09/07/2015 Chronic kidney disease Prashanth Davidson PA Onset: 10/15/2016 Chronic obstructive lung disease Prashanth Davidson PA Onset: 10/15/2016 Smoker Prashanth Davidson PA Onset: 10/15/2016 Polycystic kidney disease, adult type Prashanth Davidson PA Onset: 06/08/2018 Hypothyroidism Onset: 08/04/2019 Social History Type Date Description Comments Sex Unknown Cigarette Use Quit - Age 40 Tobacco Use Start: Unknown End: Patient is a former smoker Quit at age 40. 20yr Unknown at 0.5pk/day Smoking Status Reviewed: 09/20/19 Patient is a former smoker Quit at age 40. 20yr at 0.5pk/day Allergies, Adverse Reactions, Alerts Description No Known Drug Allergies Medications Active Medications SIG Qnty Indications Ordering Date Provider Ciprofloxacin HCL 1 by mouth twice a 30tabs N39.0 Roxanne, 10/18/2019 500mg day for 15days Eli Armijo MD Tablets Fluconazole 1 by mouth x1 2tabs N39.0 Roxanne, 10/18/2019 150mg middle and after Eli Armijo MD Tablets antibiotics course Sulfamethoxazole-Trim 1 by mouth q day 90tabs N39.0 Roxanne, 10/18/2019 ethoprim for urinary Eli Armijo MD 400-80mg prophylaxis Tablets Levothyroxine Sodium Take One Tablet By 90tabs Regi Garnica 09/21/2019 Mouth Every Day C, RN MS [employer]ANCIAL AID MANAGER 50mcg Tablets Tramadol HCL 1 tab by mouth 40tabs Regi Garnica 07/28/2019 50mg every 6 hours as Clyde, RN MS FINANCIAL AID MANAGER Tablets needed for pain, max dose 4 daily Escitalopram Oxalate 1 by mouth every 90tabs F41.1 Regi Garnica 2018 day C, RN MS FINANCIAL AID MANAGER 20mg Tablets F33.9 Lorazepam take 1-2 tablets by 30tabs F41.1 Regi Garnica, 07/07/2019 1mg Tablets mouth Once a day as RN MS CONY needed for anxiety Proair HFA 2 p three times a 25.5gm J45.40 Regi Garnica, 08/20/2018 108(90Base) day as needed RN MS FINANCIAL AID MANAGER mcg/Act Aerosol J44.9 Breo Ellipta Inhale One puff 60units J45.[facility] 06/08/2018 100-25mcg/Inh By Mouth Every M, Aerosol Day J44.9 Nystatin ~5ml by mouth 4 500ml B37.0 [facility] 06/08/2018 [id number] times daily for MD Zofia Suspension 3weeks. retain in mouth as long as possible. continue treatment 3days after all s/s resolved Fluticasone Propionate Madeline Two Sprays In 16units Roxanne [facility] 03/31 Each Nostril Every MD Zofia 50mcg/Act Suspension Day Montelukast Sodium Take One Tablet By 90tabs J45.20 Regi Garnica 2017 10mg Mouth Every Day Clyde RN MS FINANCIAL AID MANAGER Tablets J30.9 Simvastatin take one tablet 30tabs E78.2 [facility] 03/10/2018 20mg Tablets by mouth every M, day before bed Nortriptyline HCL Take One Capsule 30caps F33.9 [facility] 2017 25mg By Mouth AT MMD Capsules Bedtime Cartia XT 1 by mouth every 30caps I10 Regi Garnica, 03/10/2018 120mg Caps ER 24HR day HANSEL DONNELLY Clonidine HCL 1 by mouth tid 60tabs I10 [facility] 03/10/2018 0.1mg Tablets MD Zofia Lisinopril 1 by mouth every I10 Eli Oliveira 03/10/2018 40mg Tablets morning MD Zofia Ondansetron HCL one tab as needed 30tabs R11.10 Regi Garnica, 2017 4mg Tablets every 8 hours for RN MS FINANCIAL AID MANAGER nausea KP Aspirin 1 by mouth every 30tabs Regi Garnica, 07/24/[address] day Per Neuro RN MS FINANCIAL AID MANAGER Magnesium Oxide Take One Tablet 180tabs N18.4 Eli Oliveira 07/24/2017 400(241.3mg) By Mouth Twice A MD Zofia mg Tablets Day N18.5 Baclofen Take One Tablet By 60tabs G89.4 Regi Garnica, 05/23/2017 10mg Tablets Mouth Twice A Day RN MS FINANCIAL AID MANAGER as Needed For Muscle Spasms Flintstones Plus Iron 1 tablet twice N18.5 Eli Oliveira 03/03/2017 daily MD Zofia Chewtabs Albuterol Sulfate 1 vial in neb. q4hr 750ml J44.9 Regi Garnica, 01/02 as needed RN MS FINANCIAL AID MANAGER (2.5mg/3ML) 0.083% Nebulizer Cetirizine HCL take one tablet by 30tabs J45.40 Eli Oliveira 2016 10mg Tablets mouth every day for MD Zofia allergy symptoms J30.9 Ipratropium Inhale The 360units J45.40 Regi Garnica 09/11/2016 [place]/Albuterol Sulfate Contents Of One C, RN MS FINANCIAL AID MANAGER Vial Via 0.5-2.5(3)mg/3ML Solution Nebulizer Four Times A Day For 7 Days J44.9 Oxycodone-Acetaminophen 1 tablet by 60tabs R51 Regi Garnica 10/09/2015 5-325mg Tablets mouth twice a C, RN MS FINANCIAL AID MANAGER day as needed for pain G89.4 Furosemide Take One Tablet By 90tabs N18.5 Eli Oliveira 10/09/2015 20mg Tablets Mouth Every Day MD Zofia Meclizine HCL 1/2-1 by mouth 30tabs 386.11 Regi Garnica, 02/15/2015 25mg three times a day RN MS FINANCIAL AID MANAGER Tablets as needed Omeprazole take one capsule by 30caps K21.9 Regi Garnica, 04/16/2012 40mg Capsules mouth every day RN MS CONY ELIZONDO R10.13 History Medications Fluconazole 1 by mouth x1 middle 2tabs Eli Oliveira 09/24/2019 - 150mg Tablets and after MD Zofia 10/01/2019 antibiotics course Ciprofloxacin HCL 1 by mouth twice a 30tabs Eli Oliveira 09/20/2019 - 500mg day for 15days MD Zofia 10/05/2019 Tablets Medications Administered in Office Medication SIG Qnty Indications Ordering Provider Date Regi Allan, HANSEL 01/14/2012 Injection MS FINANCIAL AID MANAGER PPD Nurses Schedule Opal 11/17/2009 Injection PPD Nurses Schedule Opal 03/16/2007 Injection PPD Kimani Hernandez MD 03/16/2007 Injection Kimani Stevens MD 11/14/2004 Injection Torodol Injection 15 MG Dose Kimani Hernandez MD 03/26/2001 Injection Torodol Injection 15 MG Dose Pia Aragon M.D. 03/25/2001 Injection Solumedrol Methyprenisolone Desi Moss RN 03/02/2001 Sodium Succinate Up To 40 MG A.N.P. Injection Immunizations CPT Code Status Date Vaccine Reaction Lot # [id number] Given 08/03/2019 Influenza (Non Billable) Unspecified 41914 Given 08/13/2018 MMR Virus Immunization [id number] 86309 Given 04/22/2018 Prevnar [address] OBANDO Conjugate Vaccine OFFICE 35783 Given 01/14/2012 Tdap (Adacel) Ages 7 And [id number] Above Only 45362 Given 09/14/2007 Afluria Or Fluvirin Flu Vac Intramuscular 82097 Given 09/14/2007 Afluria Or Fluvirin Flu Vac [id number] Intramuscular 94401 Given 10/07/2006 Afluria Or Fluvirin Flu Vac [id number], Intramuscular 75777 Given 08/21/2005 Afluria Or Fluvirin Flu Vac [id number] Intramuscular 34141 Given 10/03/2004 Afluria Or Fluvirin Flu Vac Intramuscular 46700 Refused 07/07/2019 Influenza Vac, Quadrivalent, Split, 0.5mL Dosage, Im Use [id number] Refused 11/08/2016 Influenza Vac, Quadrivalent, Split, 0.5mL Dosage, Im Use Vital Signs Date Vital Result Comment 10/18/2019 2:39pm Body Temperature 98.3 F Weight 230.00 lb Heart Rate 96 /min BP Systolic 112 mmHg BP Diastolic 66 mmHg Height 67 inches 5'7" BMI (Body Mass Index) 36.0 kg/m2 09/20/2019 1:13pm Body Temperature 97.9 F Weight 226.38 lb Heart Rate 100 /min BP Systolic 133 mmHg BP Diastolic 80 mmHg Height 67 inches 5'7" BMI (Body Mass Index) 35.5 kg/m2 Urine Dipstick - Blood 1+ Urine Dipstick - Protein TRACE Urine Dipstick - Glucose NEGATIVE Urine Dipstick - Leukocytes 1+ Trace Nitrates Results Test Acquired Date Facility Test Result H/L Range Note Laboratory test 10/18/2019 [facility] Urine <pending> finding Culture Electrolytes 10/15/2019 [facility] Sodium 134 mmol/L Low 135- 145 Chloride 101 mmol/L Normal 101-111 Co2 Carbon Dioxide 23 mmol/L Normal 22-32 Potassium 5.5 mmol/L High 3.5-5.0 Anion Gap 10 mmol/L Normal 2-11 Laboratory test 10/15/2019 [facility] HCG 1.82 mIU/mL 1 finding Laboratory test 09/20/2019 [facility] Urine Culture Microbiology res Abnormal 2 finding <SEE NOTE> Laboratory test 09/20/2019 [facility] TSH 45.59 uIU/mL High 0.35 finding -4.9 4 Laboratory test 09/08/2019 [facility] Urine Culture Microbiology res 3 finding <SEE NOTE> Manual 08/11/2019 [facility] Neutrophils 83 % High 35-7 Differential 5 Band 2 % 0-11 Lymphocytes 8 % Low 16-52 Monocytes 7 % 0-8 Abs Neutrophils# 19.3 K/ul High 1.8-7.7 Abs Lymphocytes# 1.9 K/ul 1.2-4.8 Abs Monocytes# 1.6 K/ul High 0.0-0.8 Abs BandCells# 0.5 K/ul 0.0-1.2 Anisocytosis 1 Abnormal None Seen Platelet Estimate NORMAL Normal Toxic Granulation MOD Abnormal None Seen CBC with Auto Diff-fcmg 08/11/2019 [facility] RBC 3.92 M/uL Low 4.00-5.40 Hemoglobin 13.2 gm/dL 12.0-16.0 Hematocrit 38.6 % 36.0-47.0 MCV 98.4 fL High 80.0-97.0 MCH 33.6 pg High 27.0-32.0 MCHC 34.1 g/dL 32.0-36.0 RDW 17.0 % High 11.5-14.5 PLT Count 216 K/ul 140-400 MPV 7.9 FL 7.1-10.7 WBC 23.2 K/uL Critical high 4.1-11.0 4 Arterial Blood Gas 08/02/2019 [facility] PH Arterial 7.41 Normal 7.35-7.45 Pco2 Arterial 27 mmHg Low 35-45 Po2 Arterial 181 mmHg High 80-100 O2 Saturation Arterial 99.9 % High 94.0-98.0 Base Excess Arterial -6.0 mmol/L Low -2.0-2.0 5 Hco3 Arterial 20.2 mmol/L Normal 19-31 Inr/Protime 08/02/2019 [facility] Inr 1.27 High 0.82-1.09 6 Laboratory test 08/02/2019 [facility] Activated 36.0 seconds Normal 26.0-38.0 finding Partial Thrombo Time B Type Natriuretic Peptide 73 pg/mL <=100 Urinalysis Profile 08/02/2019 [facility] Urine Color Red Abnormal Urine Appearance Turbid Urine Specific [place] 1.020 Normal 1.010-1.030 Urine pH 6.0 Normal 5-9 Urine Urobilinogen Negative Negative Urine Ketones Trace Abnormal Negative Urine Protein 2+(100 mg/dL) Abnormal Negative Urine Leukocytes 1+ Abnormal Negative Urine Blood 3+ Abnormal Negative Urine Nitrite Negative Negative Urine Bilirubin Negative Negative Urine Glucose Negative Negative Urine White Blood Cell 3+(>20/hpf) Abnormal Absent Urine Red Blood Cell 3+(>10/hpf) Abnormal Absent Urine Bacteria Absent Absent Laboratory test 08/02/2019 [facility] Lactic Acid 1.1 mmol/L Normal 0.5-2.0 7 finding Comp Metabolic 08/02/2019 [facility] Sodium 131 mmol/L Low 135 -145 Panel Potassium 4.3 mmol/L Normal 3.5-5.0 Chloride 92 mmol/L Low 101-111 Co2 Carbon Dioxide 23 mmol/L Normal 22-32 Anion Gap 16 mmol/L High 2-11 Glucose 93 mg/dL Normal 70-100 Blood Urea Nitrogen 57 mg/dL High 6-24 Creatinine 11.18 mg/dL High 0.51-0.95 BUN/Creatinine Ratio 5.1 Low 8-20 Calcium 8.0 mg/dL Low 8.6-10.3 Total Protein 6.7 g/dL Normal 6.4-8.9 Albumin 3.1 g/dL Low 3.2-5.2 Globulin 3.6 g/dL Normal 2-4 Albumin/Globulin Ratio 0.9 Low 1-3 Total Bilirubin 0.40 mg/dL Normal 0.2-1.0 Alkaline Phosphatase 107 U/L High 34-104 Alt 8 U/L Normal 7-52 Ast 11 U/L Low 13-39 Egfr Non- 3.7 >60 Egfr 4.5 >60 8 Laboratory test 08/02/2019 [facility] Magnesium 2.3 mg/dL Normal 1.9-2.7 finding C Reactive Protein 407.25 mg/L High <8.01 Troponin I 0.01 ng/mL <0.04 9 TSH (Thyroid Stimulating Horm) 22.04 mcIU/mL High 0.34-5.60 CBC Auto Diff 08/02/2019 [facility] White Blood 10.1 10^3/uL Normal 3.5-10.8 Count Red Blood Count 4.63 10^6/uL Normal 3.70-4.87 Hemoglobin 15.9 g/dL Normal 12.0-16.0 Hematocrit 46 % Normal 35-47 Mean Corpuscular Volume 98 fL High 80-97 Mean Corpuscular Hemoglobin 34 pg High 27-31 Mean Corpuscular HGB Conc 35 g/dL Normal 31-36 Red Cell Distribution Width 17 % High 10-15 Platelet Count 192 10^3/uL Normal 150-450 Mean Platelet Volume 9.3 fL Normal 7.4-10.4 Abs Neutrophils 8.5 10^3/uL High 1.5-7.7 Abs Lymphocytes 0.5 10^3/uL Low 1.0-4.8 Abs Monocytes 1.0 10^3/uL High 0-0.8 Abs Eosinophils 0.1 10^3/uL Normal 0-0.6 Abs Basophils 0.0 10^3/uL Normal 0-0.2 Abs Nucleated RBC 0.0 10^3/uL Granulocyte % 83.9 % Lymphocyte % 4.7 % Monocyte % 10.0 % Eosinophil % 1.0 % Basophil % 0.4 % Nucleated Red Blood Cells % 0.0 Urine Culture And 08/02/2019 [facility] Urine Culture SEE RESULT 10 Sensitivities BELOW CBC Auto Diff 07/27/2019 [facility] White Blood 10.7 10^3/uL Normal 3.5-10 Count .8 Red Blood Count 5.49 10^6/uL High 3.70-4.87 [...] Cells % 0.2 Comp Metabolic Panel 07/27/2019 [facility] Sodium 137 mmol/L Normal 135-145 Potassium 4.6 [...] Egfr Non- 5.2 >60 Egfr 6.2 >60 11 Urinalysis 07/27/2019 [facility] Urine White 3+(>20/hpf) Abnormal Absent Profile Blood Cell Urine Red Blood Cell 3+(>10/hpf) Abnormal Absent Urine Bacteria Absent Absent Urine Color Red Abnormal Urine Appearance Turbid Urine Specific [place] 1.013 Normal 1.010-1.030 Urine pH TNP 5-9 12 Urine Urobilinogen TNP Negative 13 Urine Ketones TNP Negative 14 Urine Protein TNP Negative 15 Urine Leukocytes TNP Negative 16 Urine Blood TNP Negative 17 * TNP Negative 18 Urine Nitrite TNP Negative 19 Urine Bilirubin TNP Negative 20 Urine Glucose TNP Negative 21 Urine Culture And 07/27/2019 [facility] Urine Culture SEE RESULT 22 Sensitivities BELOW 1 <5.0 Negative 5.0 - 25.0 Indeterminate (Repeat testing recommended after 72 hours) >25.0 Positive Perimenopausal women can display HCG levels of up to 20 mIU/mL 2 Microbiology results SOURCE Clean Catch Midstream COLONY COUNT 15,000 CFU/ML PRELIMINARY RESULT Gram Negative Balwinder. ID & Sensitivity to Follow. 09/21/2019 1:36 PM FINAL RESULT Escherichia coli (Isolate 1) Sensitivity Analysis Isolate 1 --------- AMIKACIN <=16 S AMOXICILLIN/CLAVULANATE <=8/4 S AMPICILLIN <=8 S AMPICILLIN/SULBACTAM <=8/4 S CEFAZOLIN <=2 S CEFEPIME <=8 S CEFOTAXIME <=2 S CEFTRIAXONE <=1 S CEFUROXIME <=4 S CIPROFLOXACIN <=1 S ERTAPENEM <=0.5 S GENTAMYCIN <=2 S IMIPENEM <=1 S LEVOFLOXACIN <=2 S NITROFURANTOIN <=32 S PIPERACILLIN/TAZOBACTAM <=16 S TETRACYCLINE >8 R TOBRAMYCIN <=4 S TRIMETHOPRIM/SULFAMETHOXAZ <=2/38 S S=Sensitive;I=Indeterminate;R=Resistant 3 Microbiology results SOURCE Clean Catch Midstream FINAL RESULT <10,000 CFU/ML Mixed urogenital zac consistent with contamination. Request fresh specimen if indicated. 4 Result amended from (Not Reported) (08/11/2019 9:17 PM) to (23.2) (08/11/2019 9:17 PM) by LETTY. 5 Reference ranges based on room air. 6 Standard intensity warfarin therapeutic range: 2.0-3.0 High intensity warfarin therapeutic range: 2.5-3.[address] [facility] Severe Sepsis and Septic Shock Management Bundle Measure requires all lactic acids initially measuring >2.0 mmol/L be repeated. 8 Because ethnic data is not always readily [...] 15-29 5 Kidney failure <15 (or dialysis) 9 Troponin-I testing on Plasma Separator Tubes (PST) has a known false positive rate of 0.20-0.40%. All positive troponins reflex immediately to secondary confirmatory testing. Using the IKO System DxI 800 Access Immunoassay systems, the 99th percentile upper reference limit was demonstrated to be < 0.03 ng/mL. 10 SEE RESULT BELOW Name: BUFFY TONEY : [address]: Partha Moreno MD Acct: [id number] Unit: [id number] AGE: 43 Location: [place] [address] Re08/02/19 SEX: F Status: ADM IN SPEC: [id number] ES: 08/02/[address]: Arnold Wang MD REQ: [id number] RECD: 08/02/19 STATUS: PATRICK JOHNSON DR: [facility] Regi Gonzalez MD _ SOURCE: URINE SPDESC: ORDERED: Urine Culture Procedure Result Reported Site Urine Culture Final 08/04/19- 927 ML Organism 1 ESCHERICHIA COLI Beals Count >100,000 (Many) CFU/ML 1. ESCHERICHIA COLI [...] . END OF REPORT DEPARTMENT OF PATHOLOGY, [address] [place] [address] Graham Ambrocio M.D. Director [facility] # [id number] 11 Because ethnic data is not always readily [...] 15-29 5 Kidney failure <15 (or dialysis) 12 Unable to evaluate urinalysis dipstick results due to interfering color. 13 Unable to evaluate urinalysis dipstick results due to interfering color. 14 Unable to evaluate urinalysis dipstick results due to interfering color. 15 Unable to evaluate urinalysis dipstick results due to interfering color. 16 Unable to evaluate urinalysis dipstick results due to interfering color. 17 Unable to evaluate urinalysis dipstick results due to interfering color. 18 Unable to evaluate urinalysis dipstick results due to interfering color. 19 Unable to evaluate urinalysis dipstick results due to interfering color. 20 Unable to evaluate urinalysis dipstick results due to interfering color. 21 Unable to evaluate urinalysis dipstick results due to interfering color. 22 SEE RESULT BELOW Name: BUFFY TONEY : [address]: Richardson Bautista MD Acct: [id number] Unit: [id number] AGE: 43 Location: ED Re07/27/19 SEX: F Status: DEP ER SPEC: [id number] ES: 07/27/[address]: Richardson Bautista MD REQ: [id number] RECD: 07/27/19 STATUS: PATRICK JOHNSON DR: Regi Garnica FISH HATCHERY INSPECTOR _ SOURCE: URINE SPDESC: ORDERED: Urine Culture Procedure Result Reported Site Urine Culture Final 07/29/19- 0752 ML Organism 1 ESCHERICHIA COLI Beals Count >100,000 (Many) CFU/ML 1. ESCHERICHIA COLI [...] . END OF REPORT DEPARTMENT OF PATHOLOGY, [address] [place] [address] Graham Ambrocio M.D. Director [facility] # [id number] Procedures Date Code Description Status 08/14/2018 [id number] Mammogram Completed Medical Devices Description No Information Available Encounters Type Date Location Provider Dx Diagnosis Office Visit 09/20/2019 1:00p Prashanth Nguyen PA N39.0 Urinary tract infection, site not specified Z99.2 Dependence on renal dialysis N18.5 Chronic kidney disease, stage 5 E66.9 Obesity, unspecified Z68.35 Body mass index (BMI) 35.0-35.9, adult Office Visit 08/11/2019 2:40p Regi Manuel, E66.9 Obesity, unspecified RN MS [employer]CIAL AID MANAGER D72.829 Elevated white blood cell count, unspecified N18.4 Chronic kidney disease, stage 4 (severe) Z68.38 Body mass index (BMI) 38.0-38.9, adult Office Visit 07/07/2019 2:40p Regi Manuel, Z00.00 Encntr for general RN MS CONY adult medical exam w/o abnormal findings Z13.31 Encounter for screening for depression I10 Essential (primary) hypertension F41.1 Generalized anxiety disorder Z23 Encounter for immunization M25.572 Pain in LEFT ankle and joints of LEFT foot E78.2 Mixed hyperlipidemia Z68.37 Body mass index (BMI) 37.0-37.9, adult Assessments Date Code Description Provider 10/18/2019 N39.0 Urinary tract infection, site not Prashanth Davidson PA specified 10/18/2019 N18.5 Chronic kidney disease, stage 5 Prashanth Davidson PA 10/18/2019 Z99.2 Dependence on renal dialysis Prashanth Davidson PA 10/18/2019 R31.9 Hematuria, unspecified Prashanth Davidson PA 10/18/2019 Z68.36 Body mass index (BMI) 36.0-36.9, Prashanth Davidson PA adult 09/20/2019 E78.2 Mixed hyperlipidemia [facility] 09/20/2019 Z13.29 Encounter for screening for other Eli Oliveira MD suspected endocrine disorder 09/20/2019 Z13.29 Encounter for screening for other [facility] suspected endocrine disorder 09/20/2019 I12.0 Hypertensive chronic kidney disease [facility] with stage 5 chronic kidney disease or end stage renal disease 09/20/2019 N18.5 Chronic kidney disease, stage 5 [facility] 09/20/2019 E03.9 Hypothyroidism, unspecified [facility] 09/20/2019 Z79.899 Other intermediate frame tender (current) drug [facility] therapy 09/20/2019 N39.0 Urinary tract infection, site not Prashanth Davidson PA specified 09/20/2019 Z13.29 Encounter for screening for oth Nurses Schedule Opal suspected endocrine disorder 09/20/2019 Z99.2 Dependence on renal dialysis Prashanth Davidson PA 09/20/2019 N18.5 Chronic kidney disease, stage 5 Prashanth Davidson PA 09/20/2019 E66.9 Obesity, unspecified Prashanth Davidson PA 09/20/2019 Z68.35 Body mass index (BMI) 35.0-35.9, Prashanth Davidson PA adult 09/20/2019 Z13.29 Encounter for screening for oth [facility] suspected endocrine disorder 09/20/2019 R31.9 Hematuria, unspecified [facility] 09/08/2019 N18.4 Chronic kidney disease, stage 4 Nurses Schedule Opal (severe) 09/08/2019 R31.9 Hematuria, unspecified Nurses Schedule Opal 09/08/2019 N18.4 Chronic kidney disease, stage 4 [facility] (severe) 09/08/2019 R31.9 Hematuria, unspecified [facility] 08/11/2019 E66.9 Obesity, unspecified Regi Garnica RN MS [facility] 08/11/2019 D72.829 Elevated white blood cell count, Regi Garnica RN MS [facility] unspecified 08/11/2019 N18.4 Chronic kidney disease, stage 4 Regi Garnica RN [facility] (severe) 08/11/2019 Z68.38 Body mass index (BMI) 38.0-38.9, Regi Garnica RN [facility] adult 08/11/2019 D72.829 Elevated white blood cell count, [facility] unspecified 08/11/2019 D72.829 Elevated white blood cell count, [facility] unspecified 07/07/2019 Z00.00 Encounter for general adult medical Regi Garnica RN [facility] examination without abnormal findings 07/07/2019 Z13.31 Encounter for screening for Regi Garnica RN [facility] depression 07/07/2019 I10 Essential (primary) hypertension Regi Garnica RN MS [facility] 07/07/2019 F41.1 Generalized anxiety disorder Regi Garnica RN MS [facility] 07/07/2019 Z23 Encounter for immunization Regi Garnica RN [facility] 07/07/2019 M25.572 Pain in LEFT ankle and joints of LEFT Regi Garnica RN [facility] foot 07/07/2019 E78.2 Mixed hyperlipidemia Regi Garnica RN [facility] 07/07/2019 Z68.37 Body mass index (BMI) 37.0-37.9, Regi Garnica RN [facility] adult Plan of Treatment 10/18/2019 - Prashanth Davidson PAN39.0 Urinary tract infection, site not specifiedNew Medication:Ciprofloxacin HCL 500 mg - 1 by mouth twice a day for 15daysFluconazole 150 mg - 1 by mouth x1 middle and after antibiotics courseSulfamethoxazole-Trimethoprim 400-80 mg - 1 by mouth q day for urinary prophylaxisComments:+nocturia. cannot use macrobid with dialysis and very little urine production. Rx Cipro for extended course. sent for culture. 2nd in less than a month. will treat with Cipro again and then start Bactrim SS daily for prophylaxis.N18.5 Chronic kidney disease, stage 5Z99.2 Dependence on renal ddgnjbdnU66.9 Hematuria, ctugfkqaoebZ27.36 Body mass index (BMI) 36.0- 36.9, adult Functional Status Description No Information Available Mental Status Description No Information Available Referrals Description No Information Available
--- OUTSIDE RECORDS SUMMARY | 2019-11-29 11:09 | XMS REPORT | Continuity of Care Document ---
:1975 External Reference #:[id number] Author Name Abraham Barajas (transmitted by agent of provider Dariela Flores) Address [address] [facility] [place] [address] Care Team Providers Name Role Phone Shakeel Gonzalez M.D. - Nephrology Care Team Information Desk Pens Assembler [phone] Regi Garnica NP - Family Care Team Information Desk Pens Assembler [phone] Problems Active Problems Provider Date Chronic kidney disease stage 4 Abraham Barajas Onset: 02/26/2018 End stage renal failure on dialysis Abraham Barajas Onset: 01/12/2019 Stenosis of other vascular prosthetic devices, Abraham Barajas Onset: 01/12 implants and grafts, initial encounter Body mass index 30+ - obesity Abraham Barajas Onset: 06/14/2019 Autosomal dominant polycystic kidney disease Abraham Barajas Onset: 2018 Social History Type Date Description Comments Sex [...] pain Nortriptyline HCL Regi Garnica, 25mg Capsules CAMPUS AMBASSADOR Cetirizine HCL Prashanth Davidson PA 10mg Tablets Omeprazole Take One Capsule By Unknown 40mg Capsules DR Mouth Every Day Mapap Arthritis Pain Take One Tablet By Unknown 650mg Tablets ER Mouth Three Times A Day For Arthritis Pain Furosemide Prashanth Davidson PA 20mg Tablets Ipratropium [place]/Albuterol Regi Garnica, Sulfate [employer]US [employer] 0.5-2.5(3)mg/3ML Solution Escitalopram Oxalate Take One Tablet By Unknown 10mg Tablets Mouth Every Day Baclofen Take One Tablet By Unknown 10mg Tablets Mouth Twice A Day as Needed For Muscle Spasms Immunizations CPT Code Status Date Vaccine Lot # 76566 Given 08/03/2019 Influenza Vaccine 90532-518-05 31855 Given 08/03/2018 Pneumococcal Vaccine 63813 Given 08/03/2018 Influenza Vaccine [id number] [id number] Refused 02/26/2018 Influenza Vaccine 13334-156-93 Vital Signs Date Vital Result Comment 09/16/2019 11:08am Height 67 inches 5'7" Weight 223.00 lb BP Systolic 129 mmHg BP Diastolic 87 mmHg BMI (Body Mass Index) 34.9 kg/m2 Heart Rate 86 /min Respiratory Rate 18 /min 08/19/2019 12:48pm Height 67 inches 5'7" Weight 230.00 lb BP Systolic 122 mmHg BP Diastolic 70 mmHg BMI (Body Mass Index) 36.0 kg/m2 Heart Rate 92 /min Respiratory Rate 18 /min Results Test Acquired Date Facility Test Result H/L Range Note Electrolytes 10/15/2019 [facility]) Sodium 134 mmol/L Low 135-145 [address] [place] [address] [phone] Chloride 101 mmol/L Normal 101-111 Co2 Carbon Dioxide 23 mmol/L Normal 22-32 Potassium 5.5 mmol/L High 3.5-5.0 Anion Gap 10 mmol/L Normal 2-11 Laboratory test 10/15/2019 [facility] ([facility]) HCG 1.82 mIU/mL [address] [place] [address] [phone] 1 <5.0 Negative 5.0 - 25.0 Indeterminate (Repeat testing recommended after 72 hours) >25.0 Positive Perimenopausal women can display HCG levels of up to 20 mIU/mL Procedures Date Code Description Status 10/15/2019 07503 Anastomosis Arteriovenous Direct Any Site Completed 09/16/2019 12126 Duplex Scan Extremity Veins, Unilateral Or Limited Study Completed 06/25/2019 97604 Dialysis Circuit, Intro [place]/Cath W/ Diagnostic Completed Angiography 06/25/2019 90865 Thrombectomy Av Fistula W/Out Revision; Auto/Nonauto Completed Dialysis GFT 06/25/2019 01373 Anastomosis Arteriovenous Direct Any Site Completed 06/18/2019 23025 Dialysis Circuit W/ Transcatheter Placement Intravascular Completed Stent(S 06/18/2019 75378 Revision W/Thrombectomy Av Fistula Auto/Nonauto Dialysis Completed Graft 06/14/2019 05041 Duplex Scan Extremity Veins, Unilateral Or Limited Study Completed Medical Devices Description No Information Available Encounters Type Date Location Provider Dx Diagnosis Office Visit 09/16/2019 10:45a [facility] Abraham Barajas Q61.2 Polycystic kidney, adult type Z99.2 Dependence on renal dialysis Z01.818 Encounter for other preprocedural examination T82.510A Breakdown of surgically created Av fistula, init Z68.34 Body mass index (BMI) 34.0-34.9, adult Office Visit 06/14/2019 1:00p [facility] BarajasAbraham T82.858A Stenosis of other vascular prosth dev/grft, init L76.32 Postproc hematoma of skin, subcu following other procedure N18.4 Chronic kidney disease, stage 4 (severe) Z99.2 Dependence on renal dialysis Z68.36 Body mass index (BMI) 36.0-36.9, adult Assessments Date Code Description Provider 10/22/2019 Q61.2 Polycystic kidney, adult type Barajas, Abraham 10/22/2019 N18.4 Chronic kidney disease, stage 4 (severe) Barajas, Abraham 10/15/2019 Z79.01 longterm (current) use of anticoagulants Barajas, Abraham 10/15/2019 T82.510A Breakdown (mechanical) of surgically created Barajas, Abraham arteriovenous fistula, initial encounter 10/15/2019 Q61.2 Polycystic kidney, adult type Barajas, Abraham 10/15/2019 N18.4 Chronic kidney disease, stage 4 (severe) Barajas, Abraham 10/15/2019 Z99.2 Dependence on renal dialysis Barajas, Abraham 09/16/2019 Q61.2 Polycystic kidney, adult type Barajas, Abraham 09/16/2019 Z99.2 Dependence on renal dialysis Barajas, Abraham 09/16/2019 Z01.818 Encounter for other preprocedural examination Barajas, Abraham 09/16/2019 T82.510A Breakdown (mechanical) of surgically created Barajas, Abraham arteriovenous fistula, initial encounter 09/16/2019 Z68.34 Body mass index (BMI) 34.0-34.9, adult Barajas, Abraham 08/19/2019 T82.858A Stenosis of other vascular prosthetic devices, Barajas, Abraham implants and 08/19/2019 N18.4 Chronic kidney disease, stage 4 (severe) Barajas, Abraham 08/19/2019 Q61.2 Polycystic kidney, adult type Barajas, Abraham 08/19/2019 Z99.2 Dependence on renal dialysis Barajas, Abraham 08/19/2019 Z68.36 Body mass index (BMI) 36.0-36.9, adult Barajas, Abraham 07/08/2019 T82.858D Stenosis of other vascular prosthetic devices, Barajas, Abraham implants and grafts, subsequent encounter 07/08/2019 Q61.2 Polycystic kidney, adult type Barajas, Abraham 07/08/2019 N18.4 Chronic kidney disease, stage 4 (severe) Barajas, Abraham 07/08/2019 Z99.2 Dependence on renal dialysis Barajas, Abraham 07/08/2019 Z68.36 Body mass index (BMI) 36.0-36.9, adult Barajas, Abraham 06/30/2019 T82.858A Stenosis of other vascular prosthetic devices, Barajas, Abraham implants and 06/30/2019 Q61.2 Polycystic kidney, adult type Barajas, Abraham 06/30/2019 N18.4 Chronic kidney disease, stage 4 (severe) Barajas, Abraham 06/30/2019 Z99.2 Dependence on renal dialysis Barajas, Abraham 06/30/2019 Z68.36 Body mass index (BMI) 36.0-36.9, adult Barajas, Abraham 06/25/2019 T82.858A Stenosis of other vascular prosthetic [...] 06/14/2019 L76.32 Postprocedural hematoma of skin and BarajasAbraham subcutaneous tissue following other procedure 06/14/2019 N18.4 Chronic kidney disease, stage 4 (severe) Barajas, Abraham 06/14/2019 Z99.2 Dependence on renal dialysis Barajas, Abraham 06/14/2019 Z68.36 Body mass index (BMI) 36.0-36.9, adult Barajas, Abraham Plan of Treatment No Information Available Functional Status Description No Information Available Mental Status Description No Information Available Referrals Description No Information Available
--- OUTSIDE RECORDS SUMMARY | 2019-11-29 11:09 | XMS REPORT | Continuity of Care Document ---
:1975 External Reference #:[id number] Author Name Abraham Barajas (transmitted by agent of provider Dariela Flores) Address [address] [facility] [place] [address] Care Team Providers Name Role Phone Shakeel Gonzalez M.D. 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 Cetirizine HCL Prashanth Davidson PA 10mg Tablets Omeprazole Take One Capsule By Unknown 40mg Capsules DR Mouth Every Day Mapap Arthritis Pain Take One Tablet By Unknown 650mg Tablets ER Mouth Three Times A Day For Arthritis Pain Furosemide Prashanth Davidson PA 20mg Tablets Ipratropium [place]/Albuterol Regi Garnica, Sulfate GUM ROLLING MACHINE OPERATOR 0.5-2.5(3)mg/3ML Solution Escitalopram Oxalate Take One Tablet By Unknown 10mg Tablets Mouth Every Day Baclofen Take One Tablet By Unknown 10mg Tablets Mouth Twice A Day as Needed For Muscle Spasms Immunizations CPT Code Status Date Vaccine Lot # [id number] Given 08/03/2019 Influenza Vaccine [id number] 81249 Given 08/03/2018 Pneumococcal Vaccine 87061 Given 08/03/2018 Influenza Vaccine [id number] 19215 Refused 02/26/2018 Influenza Vaccine [id number] Vital Signs Date Vital Result Comment 11/04/2019 1:43pm Height 67 inches 5'7" Weight 223.00 lb BP Systolic 131 mmHg BP Diastolic 80 mmHg BMI (Body Mass Index) 34.9 kg/m2 Heart Rate 89 /min Respiratory Rate 18 /min 09/16/2019 11:08am Height 67 inches 5'7" Weight 223.00 lb BP Systolic 129 mmHg BP Diastolic 87 mmHg BMI (Body Mass Index) 34.9 kg/m2 Heart Rate 86 /min Respiratory Rate 18 /min Results Test Acquired Date Facility Test Result H/L Range Note Electrolytes 10/15/2019 [facility]) Sodium 134 mmol/L Low 135-145 [address] [place] [address] [phone] Chloride 101 mmol/L Normal 101-111 Co2 Carbon Dioxide 23 mmol/L Normal 22-32 Potassium 5.5 mmol/L High 3.5-5.0 Anion Gap 10 mmol/L Normal 2-11 Laboratory test 10/15/2019 [facility] ([facility]) HCG 1.82 mIU/mL [address] [place] [address] [phone] 1 <5.0 Negative 5.0 - 25.0 Indeterminate (Repeat testing recommended after 72 hours) >25.0 Positive Perimenopausal women can display HCG levels of up to 20 mIU/mL Procedures Date Code Description Status 10/15/2019 13532 Anastomosis Arteriovenous Direct Any Site Completed 09/16/2019 71239 Duplex Scan Extremity Veins, Unilateral Or Limited Study Completed 06/25/2019 71795 Dialysis Circuit, Intro [place]/Cath W/ Diagnostic Completed Angiography 06/25/2019 72227 Thrombectomy Av Fistula W/Out Revision; Auto/Nonauto Completed Dialysis GFT 06/25/2019 51652 Anastomosis Arteriovenous Direct Any Site Completed 06/18/2019 79113 Dialysis Circuit W/ Transcatheter Placement Intravascular Completed Stent(S 06/18/2019 13994 Revision W/Thrombectomy Av Fistula Auto/Nonauto Dialysis Completed Graft 06/14/2019 94437 Duplex Scan Extremity Veins, Unilateral Or Limited [...] 36.0-36.9, adult Assessments Date Code Description Provider 11/04/2019 Q61.2 Polycystic kidney, adult type Barajas, Abraham 11/04/2019 N18.4 Chronic kidney disease, stage 4 (severe) Barajas, Abraham 11/04/2019 Z68.34 Body mass index (BMI) 34.0-34.9, adult Barajas, Abraham 10/22/2019 T82.510A Breakdown (mechanical) of surgically created Barajas, Abraham arteriovenous fistula, initial encounter 10/22/2019 Q61.2 Polycystic kidney, adult type Barajas, Abraham 10/22/2019 N18.4 Chronic kidney disease, stage 4 (severe) Barajas, [facility] 10/22/2019 Z79.01 intermediate (current) use of anticoagulants Barajas, [facility] 10/22/2019 Z99.2 Dependence on renal dialysis Barajas, [facility] 10/15/2019 Z79.01 tank terminal gauger (current) use of anticoagulants Barajas, [facility] 10/15/2019 T82.510A Breakdown (mechanical) of surgically created Barajas, Abraham arteriovenous fistula, initial encounter 10/15/2019 Q61.2 Polycystic kidney, adult type Barajas, Abraham 10/15/2019 N18.4 Chronic kidney disease, stage 4 (severe) Barajas, [facility] 10/15/2019 Z99.2 Dependence on renal dialysis Barajas, [facility] 09/16/2019 Q61.2 Polycystic kidney, adult type Barajas, [facility] 09/16/2019 Z99.2 Dependence on renal dialysis Barajas, [facility] 09/16/2019 Z01.818 Encounter for other preprocedural examination Barajas, [facility] 09/16/2019 T82.510A Breakdown (mechanical) of surgically created [...] Body mass index (BMI) 36.0-36.9, adult Barajas, [facility] 06/25/2019 T82.858A Stenosis of other vascular prosthetic devices, Barajas, Abraham implants and 06/25/2019 I77.1 Stricture of artery Barajas, [facility] 06/25/2019 Z68.36 Body mass index (BMI) 36.0-36.9, adult Barajas, [facility] 06/25/2019 Y83.2 Anastomos,bypass or grft cause abn [...]
--- OUTSIDE RECORDS SUMMARY | 2019-11-29 11:09 | XMS REPORT | Continuity of Care Document ---
:1975 External Reference #:[id number] Author Name Nikhil Beckwith MD (transmitted by agent of provider Jonathan Carballo) Address [address] [place] [id number] Care Team Providers Name Role Phone Regi Garnica, SECTION LABORER - Family Care Team Information Street Superintendent [phone] Problems Active Problems Provider Date Migraine with [...] Use Never Used Drugs Smoking Status Reviewed: 11/04/19 Patient is a former quit in 2013 [...] every Unknown 240mg Caps ER day 24HR Advair Diskus 1 puff by mouth Unknown twice a day 250-50mcg/Dose Aerosol Cetirizine HCL 1 tab po Unknown 10mg Chewtabs Vitamin D 2 by mouth every Unknown (Cholecalciferol) day 1000Unit Capsules Baclofen take 1/2 tab Unknown 10mg Tablets every 8 hours as needed for muscle spasm Furosemide 1 by mouth in the Unknown 20mg Tablets morning Percocet as needed pain Unknown 5-325mg Tablets Albuterol Sulfate as needed Unknown (2.5mg/3ML) 0.083% Nebulizer Ipratropium [place] as needed Unknown 0.02% Solution Ventolin HFA 2 puffs by mouth Unknown 108(90Base) four times a day mcg/Act Aerosol as needed Escitalopram Oxalate 1 by mouth every Unknown 10mg day Tablets Omeprazole 1 by mouth every Unknown 40mg Capsules day Montelukast Sodium 1 by mouth every Unknown [...] Mckeon M.D., 06/11/2019 Tetrofosmin, Per Unit Dose FACC, FASNC Up To 40 Millicuries Injection Immunizations Description No Information Available Vital Signs Date Vital Result Comment 11/04/2019 9:31am Heart Rate 84 /min BP Systolic 124 mmHg BP Diastolic 80 mmHg Respiratory Rate 16 /min Body Temperature 97.4 F 09/06/2019 10:22am Heart Rate 78 /min Respiratory Rate 16 /min Body Temperature 97.1 F Results Test Acquired Date Facility Test Result H/L Range Note Urinalysis Profile 10/08/2019 [facility] Urine Color Yellow [address] [place] [address] [phone] Urine Appearance Cloudy Urine Specific [place] 1.010 Normal 1.010-1.030 Urine pH 8.0 Normal [...] Present Abnormal Absent Urine Culture And 10/08/2019 [facility] Urine Culture SEE RESULT [address] [place] [address] [phone] Lipid Profile 08/20/2019 N2N/CCD Import Cholesterol 84 [...] 36.0 Platelet-CT 262 150 - 400 Neuts-Abs 59142.50 High 2000 - 8800 Lymphs-Abs 459.00 Low [...] Calc (HGBX3) 52.8 High 37.0 - 47.0 Alt/SGPT 06/16/2019 N2N/CCD Import Alt/SGPT 16 10 - 49 STDKDT/V Dialysis 06/16/2019 N2N/CCD Import STDKDT/V Dialysis N/A Weight (KG) 06/16/2019 N2N/CCD Import Weight (KG) 104.0 STDKT/V Total 06/16/2019 N2N/CCD Import STDKT/V Total N/A Chem I HD 06/16/2019 N2N/CCD Import [...] 53 [place] Corrected 38.1 21 - 53 Age Of Patient 06/16/2019 N2N/CCD Import Age Of Patient 43 0416 06/16/2019 N2N/CCD Import BUN 37 High 9 - 23 Creatinine 7.02 High 0.50 - 1.10 NPCR PD 0.67 Creat-PD 2.17 Urea-PD 22 Urea CLR Ur/Bsa 4.1 Low 64 - 99 Cre CLR Ur/Bsa 7 Low 75 - 115 Urea CLR Ur 4.7 Minuts Collctd-Ur 1440 Tot.Vol.-Urine 1250 Tot.Vol.-PDF 19835 Urea Gen Rate 7.9 Urea Nit Urine [...] KT/V Residual 1.19 KT/V Total PD 2.51 Calcium Corrected 06/16/2019 N2N/CCD Import Calcium Corrected 9.3 8.7 - 10.4 KRT/V Renal 06/16/2019 N2N/CCD Import KRT/V Renal N/A SPKT/V Total 06/16/2019 N2N/CCD Import SPKT/V Total N/A STDKRT/V Renal 06/16/2019 N2N/CCD Import STDKRT/V Renal N/A Ekdt/V Dialysis 06/16/2019 N2N/CCD Import Ekdt/V Dialysis N/A Glucose 06/16/2019 N2N/CCD Import Glucose 83 70 - 99 Gender 06/16/2019 N2N/CCD Import Gender F CBC [...] Act 243 Clotting Time Laboratory test 06/08/2019 [facility] Poc Activated 243 seconds [address] [place] [address] [phone] 0416 05/28/2019 N2N/CCD Import Urea-PD 32 Urea CLR Ur/Bsa 1.0 Low 64 - 99 BUN 50 High 9 - 23 Creatinine 8.74 High 0.50 - 1.10 NPCR PD 0.62 Creat-PD 2.87 Cre CLR Ur/Bsa 3 Low 75 - 115 Urea CLR Ur 1.2 Minuts Collctd-Ur 1440 Tot.Vol.-Urine 250 Tot.Vol.-PDF 22357 Urea Gen Rate 7.1 Urea Nit Urine 341 Creat-Ur 177.93 Bsa ([place]) 1.97 Body WT (LBS) 234 Height (Inches) [...] N2N/CCD Import Glucose 81 70 - 99 Lipid Profile 05/13/2019 N2N/CCD Import Cholesterol 179 0 - 199 Triglycerides 197 High 0 - 149 HDL 36 Low 40 - 60 Chol/HDL Ratio 5.0 3.3 - 5 LDL 104 High 0 - 99 VLDL-Chol (Calc) 39 High 0 - 29 Iron Panel 05/13/2019 N2N/CCD Import Iron 85 50 - 170 Iron Saturation 34 16 - 46 Tibc 253 250 - 450 Uibc 168 80 - 375 0416 05/13/2019 N2N/CCD Import BUN 44 High 9 - 23 Creatinine 7.21 High 0.50 - 1.10 NPCR PD 0.56 Creat-PD 2.56 Urea-PD 26 Urea CLR Ur/Bsa 1.4 Low 64 - 99 Cre CLR Ur/Bsa 3 Low 75 - 115 Urea CLR Ur 1.6 Minuts Collctd-Ur 1440 Tot.Vol.-Urine 250 Tot.Vol.-PDF 04487 Urea Gen Rate 6.2 Urea Nit Urine 403 Creat-Ur 152.40 Bsa ([place]) 1.98 Body WT (LBS) 236 Height (Inches) 59 TBW Hdz 40.38 Pna (PD) 46.5 Npna-PD 0.67 Pily (PD) 4.1 Min Goal:KT/V PD 2.1 PCR PD 38.8 Amputation Factor 0 Cre CLR Ur 4 Low 88 - 128 L/WK/1.73 Resid cc 23.16 L/WK PDF cc 29.97 L/WK/1.73 Total cc 49.34 L/WK Resid cc 26.51 L/WK/1.73 PDF cc 26.18 L/WK Total cc 56.48 KT/V PDF 1.24 KT/V Residual 0.40 KT/V Total PD 1.63 Chem I HD 05/13/2019 N2N/CCD Import Protein - Total 6.5 5.7 - 8.2 A/G Ratio 1.8 1 - 2.5 Globulin 2.3 0.9 - 5 [place] Product 45.0 21 - 53 [place] Corrected 45.0 21 - 53 Alk Phos 75 46 - 116 Albumin 4.2 3.2 - 4.8 Calcium 9.0 8.7 - 10.4 Chloride 103 99 - 109 Co2 24 20 - 31 LDH, Total 192 120 - 246 Phosphorus 5.0 2.4 - 5.1 Potassium 5.4 3.5 - 5.5 Ast/Sgot 15 0 - 34 CBC With Autodiff 05/13/2019 N2N/CCD Import Basophils 0.7 Neutrophils 69.6 Lymphocytes 19.8 Monocytes 7.2 Eosinophils 2.8 RDW 14.9 11.0 - 15.0 WBC 5.8 4.5 - 11.0 RBC 5.51 High 4.20 - 5.40 Hematocrit 55.7 High 37.0 - 47.0 Hemoglobin 18.5 High 12.0 - 16.0 MCV 101.1 High 80.0 - 100.0 MCH 33.6 High 27.0 - 31.0 MCHC 33.2 32.0 - 36.0 Platelet-CT 140 Low 150 - 400 Neuts-Abs 4050.72 2000 - 8800 Lymphs-Abs 1152.36 1100 - 4800 Monos-Abs 419.04 0 - 1100 Basos-Abs 40.74 0 - 400 Eosins-Abs 162.96 0 - 700 HCT Calc (HGBX3) 55.5 High 37.0 - 47.0 Glucose 05/13/2019 N2N/CCD Import Glucose 96 70 - 99 Calcium Corrected 05/13/2019 N2N/CCD Import Calcium Corrected 9.0 8.7 - 10.4 Ferritin 05/13/2019 N2N/CCD Import Ferritin 184 10 - 291 Hep B Surfce Ag 05/13/2019 N2N/CCD Import Hep B Surfce Ag Neg Neg PTH Intact 05/13/2019 N2N/CCD Import PTH Intact 390 High 18 - 80 1 SEE RESULT BELOW Name: BUFFY TONEY : [address]: Carmella Ventura MD Acct: [id number] Unit: [id number] AGE: 43 Location: [facility] Re10/08/19 SEX: F Status: REG REF SPEC: [id number] ES: 10/08/19-[address]: Carmella Ventura MD REQ: [id number] RECD: 10/08/19 STATUS: COMP _ SOURCE: URINE SPDESC: ORDERED: Urine Culture QUERIES: Urine Source: Random Procedure Result Reported Site Urine Culture Final 10/09/19- 1429 ML No growth of clinically significant organisms * ML - Main Lab . END OF REPORT DEPARTMENT OF PATHOLOGY, [address] [place] [address] Graham Ambrocio M.D. Director [facility] # [id number] 2 Manager Applied: [id number] Reference Range: 74-125 seconds Procedures Date Code Description Status 11/02/2019 70867 [facility] Home Dialysis Per Full Month 20 Yrs Completed 08/06/2019 03195 Dialysis One Evaluation Completed 08/05/2019 99522 Dialysis One Evaluation Completed 08/04/2019 81626 Dialysis One Evaluation Completed 08/03/2019 14062 EKG, Interpretation Only Completed 06/11/2019 02211 Stress Test Completed 06/11/2019 22176 Myocardial Perfusion Imaging Tomographic (Spect) Multiple Completed Studies 06/08/2019 76390 Moderate Sedation Services; Same Phys Intl 15 Mins; PT >= Completed 5 Years 06/08/2019 56520 Ultrasound Guidance For Vascular Access Completed 06/08/2019 51061 Dialysis Circuit Perc [facility] Thrombectomy W/ Completed Balloon Angio 06/07/2019 99254 ECHO Transthoracic, Real-Time 2D With Doppler And Color Completed Flow 06/07/2019 71866 ECHO Transthoracic, Real-Time 2D With Doppler And Color Completed Flow Medical Devices Description No Information Available Encounters Type Date Location Provider Dx Diagnosis Office Visit 09/06/2019 [facility] Mar[facility] Lopez, K43.9 Ventral hernia 10:30a [facility], FACS without obstruction or gangrene E66.09 Other obesity due to excess calories Office Visit 08/17/2019 11:15a [facility] Marcos Diaz K42.9 Umbilical hernia [facility] MD, without FACS obstruction or gangrene N18.6 End stage renal disease Office Visit 08/09/2019 [facility] Nephrology Gabriela N12 Tubulo-interstitial 1:45p MD Arnold nephritis, not spcf as acute or chronic B96.29 Oth Escherichia coli as the cause of diseases classd elswhr E87.1 Hypo-osmolality and hyponatremia D72.829 Elevated white blood cell count, unspecified Office Visit 08/09/2019 10:07a [facility] Florence Phelan, B96.20 Unsp Escherichia Assoc,fito [facility]ILL coli as the cause Hospitalists of diseases classd elswhr N39.0 Urinary tract infection, site not specified N18.6 End stage renal disease Z99.2 Dependence on renal dialysis D72.829 Elevated white blood cell count, unspecified I12.0 Hyp chr kidney disease w stage 5 chr kidney disease or Esrd F41.9 Anxiety disorder, unspecified Office Visit 08/08/2019 10:07a [facility] Partha N39.0 Urinary tract Assoc,fito Moreno M.D. infection, site Hospitalists not specified B96.20 Unsp Escherichia coli as the cause of diseases classd elswhr R42 Dizziness and giddiness E03.9 Hypothyroidism, unspecified F41.9 Anxiety disorder, unspecified N18.6 End stage renal disease Z99.2 Dependence on renal dialysis Office Visit 08/07/2019 10:06a [facility] Partha N39.0 Urinary tract Assoc,pc [place], M.D. infection, site Hospitalists not specified B96.20 Unsp Escherichia coli as the cause of diseases classd elswhr R42 Dizziness and giddiness N18.6 End stage renal disease Z99.2 Dependence on renal dialysis E03.9 Hypothyroidism, unspecified F41.9 Anxiety disorder, unspecified Office Visit 08/06/2019 10:06a [facility] Partha N39.0 Urinary tract Assoc,fito Moreno M.D. infection, site Hospitalists not specified B96.20 Unsp Escherichia coli as the cause of diseases classd elswhr R42 Dizziness and giddiness F41.9 Anxiety disorder, unspecified N18.6 End stage renal disease Z99.2 Dependence on renal dialysis Office Visit 08/05/2019 10:06a [facility] Partha N39.0 Urinary tract Assoc,fito Moreno M.D. infection, site Hospitalists not specified B96.20 Unsp Escherichia coli as the cause of diseases classd elswhr I95.9 Hypotension, unspecified F41.9 Anxiety disorder, unspecified Office Visit 08/04/2019 10:06a [facility] Partha N39.0 Urinary tract Assoc,fito Moreno M.D. infection, site Hospitalists not specified B96.20 Unsp Escherichia coli as the cause of diseases classd elswhr R10.9 Unspecified abdominal pain F41.9 Anxiety disorder, unspecified Office Visit 08/03/2019 10:05a [facility] Partha N39.0 Urinary tract Assoc,fito Moreno M.D. infection, site Hospitalists not specified R31.9 Hematuria, unspecified R10.9 Unspecified abdominal pain F41.9 Anxiety disorder, unspecified N18.6 End stage renal disease Z99.2 Dependence on renal dialysis Office Visit 08/03/2019 1:27p [facility] Nephrology Georgiana Lin N18.6 End stage renal MD Adam disease R31.9 Hematuria, unspecified Office Visit 08/02/2019 [facility] Ricardo Syed R10.9 Unspecified 10:05a Assoc,fito Davis M.D.,FACP abdominal pain Hospitalists R31.0 Gross hematuria E03.9 Hypothyroidism, unspecified F41.9 Anxiety disorder, unspecified N18.6 End stage renal disease Z99.2 Dependence on renal dialysis Q61.2 Polycystic kidney, adult type Assessments Date Code Description Provider 11/02/2019 N18.6 End stage renal disease Georgiana Medina MD 09/06/2019 K43.9 Ventral hernia without obstruction or Marcos Lopez MD, FACS gangrene 09/06/2019 E66.09 Other obesity due to excess calories Marcos Lopez MD, FACS 08/17/2019 K42.9 Umbilical hernia without obstruction Marcos Lopez MD, FACS or gangrene 08/17/2019 N18.6 End stage renal disease Marocs Lopez MD, FACS 08/09/2019 N12 Tubulo-interstitial nephritis, not Gabriela Barrett MD specified as acute or chronic 08/09/2019 B96.20 Unspecified Escherichia coli [Sofy Phelan MD coli] as the cause of diseases classified elsewhere 08/09/2019 B96.29 Other Escherichia coli [E. coli] as Gabriela Barrett MD the cause of diseases classified elsewhere 08/09/2019 N39.0 Urinary tract infection, site not Florence Pehlan MD specified 08/09/2019 E87.1 Hypo-osmolality and hyponatremia [...] M.D. specified 08/07/2019 B96.20 Unspecified Escherichia coli [E. Partha Moreno M.D. coli] as the cause of [...] classified elsewhere 08/05/2019 I95.9 Hypotension, unspecified Partha Moreno M.D. 08/05/2019 F41.9 Anxiety disorder, unspecified Partha [...] specified 08/03/2019 N18.6 End stage renal disease Gerogiana Medina MD 08/03/2019 R31.9 Hematuria, unspecified Partha Moreno M.D. 08/03/2019 R31.9 Hematuria, unspecified Georgiana Medina MD 08/03/2019 R10.9 Unspecified abdominal pain Partha Moreno M.D. 08/03/2019 F41.9 Anxiety disorder, unspecified Partha Moreno M.D. 08/03/2019 N18.6 End stage renal disease Partha Moreno M.D. 08/03/2019 Z99.2 Dependence on renal dialysis Partha Moreno M.D. 08/02/2019 R10.9 Unspecified abdominal pain Ricardo Davis M.D.,[facility] 08/02/2019 R31.0 Gross hematuria Ricardo Davis M.D.,[facility] 08/02/2019 E03.9 Hypothyroidism, unspecified Ricardo Davis M.D.,[facility] 08/02/2019 F41.9 Anxiety disorder, unspecified Ricardo Davis M.D.,[facility] 08/02/2019 N18.6 End stage renal disease Ricardo Davis M.D.,[facility] 08/02/2019 Z99.2 Dependence on renal dialysis Ricardo Davis M.D.,[facility] 08/02/2019 Q61.2 Polycystic kidney, adult type Ricardo Davis M.D.,[facility] 06/11/2019 N18.6 End stage renal disease Tenzin Mckeon M.D., [facility] 06/11/2019 Z01.810 Encounter for preprocedural Tenzin Mckeon M.D., cardiovascular examination [facility] 06/08/2019 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 devices, implants and grafts, initial encounter 06/07/2019 N18.6 End stage renal disease Tenzin Mckeon M.D., [facility] 06/07/2019 N18.6 End stage renal disease Traveling ECHO 1 Plan of Treatment Future Appointment(s):11/18/2019 9:30 am - [facility]hil [facility] at [facility]09/06/2019 - Marcos Lopez MD, FACSK43.9 Ventral hernia without obstruction or gangreneFollow up:As hvawhnF89.09 Other obesity due to excess calories Goals 09/06/2019 - Marcos Lopez MD, FACSK43.9 Ventral hernia without obstruction or gangrenePlease call if pain returns, or if complication with peritoneal dialysis Functional Status Description No Information Available Mental Status Description No Information Available Referrals Refer to Dr Reason for Referral Status Appt Date Abraham Barajas MD Sent [address] [place] [address] [phone]
--- OUTSIDE RECORDS SUMMARY | 2019-11-29 11:09 | XMS REPORT | Continuity of Care Document ---
:1975 External Reference #:[id number] Author Name Karl Abraham Address [address], [place] [address] Care Team Providers Name Role Phone Shakeel Gonzalez M.D. 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 Cetirizine HCL Prashanth Davidson PA 10mg Tablets Omeprazole Take One Capsule By Unknown 40mg Capsules DR Mouth Every Day [place] Arthritis Pain Take One Tablet By Unknown 650mg Tablets ER Mouth Three Times A Day For Arthritis Pain Furosemide Prashanth Davidson PA 20mg Tablets Ipratropium [place]/Albuterol Regi Garnica, Sulfate [employer] GINNER HELPER 0.5-2.5(3)mg/3ML Solution Escitalopram Oxalate Take One Tablet By Unknown 10mg Tablets Mouth Every Day Baclofen Take One Tablet By Unknown 10mg Tablets Mouth Twice A Day as Needed For Muscle Spasms Immunizations CPT Code Status Date Vaccine Lot # 80881 Given 08/03/2019 Influenza Vaccine 60921-705-23 93273 Given 08/03/2018 Pneumococcal Vaccine 46107 Given 08/03/2018 Influenza Vaccine 06118-629-96 92252 Refused 02/26/2018 Influenza Vaccine 53779-918-54 Vital Signs Date Vital Result Comment 11/04/2019 [...] Test Result H/L Range Note Electrolytes 10/15/2019 [facility]) Sodium 134 mmol/L Low 135-145 [address] [place] [address] [phone] Chloride 101 mmol/L Normal 101-111 Co2 Carbon Dioxide 23 mmol/L Normal 22-32 Potassium 5.5 mmol/L High 3.5-5.0 Anion Gap 10 mmol/L Normal 2-11 Laboratory test 10/15/2019 [facility] HCG 1.82 mIU/mL 1 finding [address] [place] [address] [phone] 1 <5.0 Negative 5.0 - 25.0 Indeterminate (Repeat testing recommended after 72 hours) >25.0 Positive Perimenopausal women can display HCG levels of up to 20 mIU/mL Procedures Date Code Description Status 10/15/2019 06732 Anastomosis Arteriovenous Direct Any Site Completed 09/16/2019 96094 Duplex Scan Extremity Veins, Unilateral Or Limited Study Completed 06/25/2019 32960 Dialysis Circuit, Intro [place]/Cath W/ Diagnostic Completed Angiography 06/25/2019 37513 Thrombectomy Av Fistula W/Out Revision; Auto/Nonauto Completed Dialysis GFT 06/25/2019 06781 Anastomosis Arteriovenous Direct Any Site Completed 06/18/2019 06234 Dialysis Circuit W/ Transcatheter Placement Intravascular Completed Stent(S 06/18/2019 24317 Revision W/Thrombectomy Av Fistula Auto/Nonauto Dialysis Completed Graft 06/14/2019 80627 Duplex Scan Extremity Veins, Unilateral Or Limited [...] adult Assessments Date Code Description Provider 11/04/2019 T82.510D Breakdown (mechanical) of surgically created BarajasAbraham arteriovenous fistula, subsequent encounter 11/04/2019 Q61.2 Polycystic kidney, adult type Barajas, Abraham 11/04/2019 N18.4 Chronic kidney disease, stage 4 (severe) Barajas, Abraham 11/04/2019 Z79.01 FDC (current) use of anticoagulants Barajas, Abraham 11/04/2019 Z99.2 Dependence on renal dialysis Barajas, Abraham 11/04/2019 Z68.34 Body mass index (BMI) 34.0-34.9, adult Barajas, Abraham 10/22/2019 T82.510A Breakdown (mechanical) of surgically created BarajasAbraham arteriovenous fistula, initial encounter 10/22/2019 Q61.2 Polycystic kidney, adult type Barajas, Abraham 10/22/2019 N18.4 Chronic kidney disease, stage 4 (severe) Barajas, Abraham 10/22/2019 Z79.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 (current) use of anticoagulants Barajas, Abraham 10/22/2019 Z99.2 Dependence on renal dialysis Barajas, Abraham 10/15/2019 Z79.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 (current) use of anticoagulants Barajas, Abraham 10/15/2019 T82.510A Breakdown (mechanical) of surgically created BarajasAbraham arteriovenous fistula, initial encounter 10/15/2019 Q61.2 Polycystic kidney, adult type Barajas, Abraham 10/15/2019 N18.4 Chronic kidney disease, stage 4 (severe) Barajas, Abraham 10/15/2019 Z99.2 Dependence on renal dialysis Barajas, Abraham 09/16/2019 Q61.2 Polycystic kidney, adult type Barajas, [facility] 09/16/2019 Z99.2 Dependence on renal dialysis Barajas, [facility] 09/16/2019 Z01.818 Encounter for other preprocedural examination Barajas, Abraham 09/16/2019 T82.510A Breakdown (mechanical) of surgically created Barajas, Abraham arteriovenous fistula, initial encounter 09/16/2019 Z68.34 Body mass index (BMI) 34.0-34.9, adult Barajas, Abraham 08/19/2019 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
--- OUTSIDE RECORDS SUMMARY | 2019-11-29 11:09 | XMS REPORT | Continuity of Care Document ---
:1975 External Reference #:[id number] Author Name Prashanth Davidson PA Address [address] [place] [address] Problems Active Problems Provider Date Mixed hyperlipidemia Eli Oliveira MD Onset: 05/23/2015 Essential hypertension Regi Garnica RN MS [employer]SLATIONAL SPECIALIST Onset: 09/07/2015 Chronic kidney disease Prashanth Davidson [...] 20yr Unknown at 0.5pk/day Smoking Status Reviewed: 11/12/19 Patient is a former smoker Quit at age 40. 20yr at 0.5pk/day Allergies, Adverse Reactions, Alerts Description No Known Drug Allergies Medications Active Medications SIG Qnty Indications Ordering Date Provider Ciprofloxacin HCL 1 by mouth twice a 20tabs N39.0 Roxanne, 11/12/2019 500mg day for 10days Eli Armijo MD Tablets Diltiazem HCL ER 1 by mouth every 30caps I10 Regi Garnica 10/20/2019 Coated Beads dawood Tang RN MS TRANSLATIONAL SPECIALIST 120mg Caps ER 24HR Sulfamethoxazole-Trim 1 by mouth q day 90tabs N39.0 Roxanne, 10/18/2019 ethoprim for urinary Eli Armijo MD 400-80mg prophylaxis Tablets Levothyroxine Sodium Take One Tablet By 90tabs Regi Garnica 09/21/2019 Mouth Every Day C, RN MS [employer]ATIONAL SPECIALIST 50mcg Tablets Tramadol HCL 1 tab by mouth 40tabs Regi Garnica 07/28/2019 50mg every 6 hours as C, RN MS [employer]ATIONAL SPECIALIST Tablets needed for pain, max dose 4 daily Escitalopram Oxalate 1 by mouth every 90tabs F41.1 Regi Garnica 2018 day C, RN MS [employer]ATIONAL SPECIALIST 20mg Tablets F33.9 Lorazepam take 1-2 tablets by 30tabs F41.1 Regi Garnica, 07/07/2019 1mg Tablets mouth Once a day as RN MS [employer] SPECIALIST needed for anxiety Proair HFA 2 p three times a 25.5gm J45.40 Regi Garnica, 08/20/2018 108(90Base) day as needed RN MS [employer]SLATIONAL SPECIALIST mcg/Act Aerosol J44.9 Breo Ellipta Inhale One puff 60units J45.40 [facility] 06/08/2018 100-25mcg/Inh By Mouth Every M, Aerosol Day J44.9 Nystatin ~5ml by mouth 4 500ml B37.0 [facility] 06/08/2018 [id number]/ML times daily for M, Suspension 3weeks. retain in mouth as long as possible. continue treatment 3days after all s/s resolved Fluticasone Propionate [place] Two Sprays In 16units [facility] 03/31 Each Nostril Every MMD 50mcg/Act Suspension Day Montelukast Sodium Take One Tablet By 90tabs J45.20 Regi Garnica 2017 10mg Mouth Every Day Clyde RN MS TRANSLATIONAL SPECIALIST Tablets J30.9 Lisinopril 1 by mouth every I10 [facility] 03/10/2018 40mg Tablets morning MD Zofia Clonidine HCL 1 by mouth tid 60tabs I10 [facility] 03/10/2018 0.1mg Tablets MD Zofia Nortriptyline HCL Take One Capsule 30caps F33.9 [facility] 2017 25mg By Mouth AT MMD Capsules Bedtime Simvastatin Take One Tablet 30tabs E78.2 [facility] 03/10/2018 20mg Tablets By Mouth Every MMD Day Before Bed Ondansetron HCL one tab as needed 30tabs R11.10 Regi Garnica, 2017 4mg Tablets every 8 hours for RN MS [employer]ATIONAL SPECIALIST nausea KP Aspirin 1 by mouth every 30tabs Regi Garnica, 07/24/[address] day Per Neuro RN MS [employer]SLATIONAL SPECIALIST Magnesium Oxide take one tablet 180tabs N18.4 Regi Garnica, 2016 400(241.3mg) by mouth twice a RN MS TRANSLATIONAL SPECIALIST mg Tablets day N18.5 Baclofen Take One Tablet By 60tabs G89.4 Regi Garnica, 05/23/2017 10mg Tablets Mouth Twice A Day RN MS [employer]SLATIONAL SPECIALIST as Needed For Muscle Spasms Flintstones Plus Iron 1 tablet twice N18.5 Eli Oliveira 03/03/2017 daily MD Zofia Chewtabs Albuterol Sulfate 1 vial in neb. q4hr 750ml J44.9 Regi Garnica, 01/02 as needed RN MS [employer]SLATIONAL SPECIALIST (2.5mg/3ML) 0.083% Nebulizer Cetirizine HCL take one tablet by 30tabs J45.40 Eli Oliveira 2016 10mg Tablets mouth every day for MD Zofia allergy symptoms J30.9 Ipratropium Inhale The 360units J45.40 Regi Garnica 09/11/2016 [place]/Albuterol Sulfate Contents Of One C, RN MS TRANSLATIONAL SPECIALIST Vial Via 0.5-2.5(3)mg/3ML Solution Nebulizer Four Times A Day For 7 Days J44.9 Oxycodone-Acetaminophen 1 tablet by 60tabs R51 Regi Garnica 10/09/2015 5-325mg Tablets mouth twice a C, RN MS [employer]ATIONAL SPECIALIST day as needed for pain G89.4 Furosemide Take One Tablet By 90tabs N18.5 Eli Oliveira 10/09/2015 20mg Tablets Mouth Every Day MD Zofia Meclizine HCL 1/2-1 by mouth 30tabs 386.11 Regi Garnica, 02/15/2015 25mg three times a day RN MS [employer]SLATIONAL SPECIALIST Tablets as needed Omeprazole take one capsule by 30caps K21.9 Regi Garnica, 04/16/2012 40mg Capsules mouth every day RN MS TRANSLATIONAL SPECIALIST R10.13 History Medications Ciprofloxacin HCL 1 by mouth twice a 30tabs N39.0 [place], 10/18/2019 - 500mg day for 15days Eli Armijo MD 11/02/2019 Tablets Fluconazole 1 by mouth x1 2tabs N39.0 [place], 10/18/2019 - 150mg middle and after Eli Armijo MD 11/01/2019 Tablets antibiotics course Fluconazole 1 by mouth x1 2tabs [place], 09/24/2019 - 150mg middle and after Eli Armijo MD 10/01/2019 Tablets antibiotics course Ciprofloxacin HCL 1 by mouth twice a 30tabs [place], 09/20/2019 - 500mg day for 15days Eli Armijo MD 10/05/2019 Tablets Medications Administered in Office Medication SIG Qnty Indications Ordering Provider Date Regi Allan RN 01/14/2012 Injection MS TRANSLATIONAL SPECIALIST PPD Nurses Schedule Opal 11/17/2009 Injection PPD Nurses Schedule Opal 03/16/2007 Injection PPD Kimani Hernandez MD 03/16/2007 Injection PPD Kimani Hernandez MD 11/14/2004 Injection Torodol Injection 15 MG Dose Kimani Hernandez MD 03/26/2001 Injection Torodol Injection 15 MG Dose Pia Aragon M.D. 03/25/2001 Injection Solumedrol MethyprenisoloDesi Sewell RN 03/02/2001 Sodium Succinate Up To 40 MG A.N.P. Injection Immunizations CPT Code Status Date Vaccine Reaction Lot # [id number] Given 08/03/2019 Influenza (Non Billable) Unspecified 16796 Given 08/13/2018 MMR Virus Immunization [id number] 49885 Given 04/22/2018 Prevnar [address] OBANDO Conjugate Vaccine OFFICE 04701 Given 01/14/2012 Tdap (Adacel) Ages 7 And [id number] Above Only 29745 Given 09/14/2007 Afluria Or Fluvirin Flu Vac Intramuscular 00130 Given 09/14/2007 Afluria Or Fluvirin Flu Vac [id number] Intramuscular 14549 Given 10/07/2006 Afluria Or Fluvirin Flu Vac [id number], Intramuscular 53822 Given 08/21/2005 Afluria Or Fluvirin Flu Vac [id number] Intramuscular 47901 Given 10/03/2004 Afluria Or Fluvirin Flu Vac Intramuscular 76105 Refused 07/07/2019 Influenza Vac, Quadrivalent, Split, 0.5mL Dosage, Im Use 37189 Refused 11/08/2016 Influenza Vac, Quadrivalent, Split, 0.5mL Dosage, Im Use Vital Signs Date Vital Result Comment 11/12/2019 9:43am Weight 230.00 lb Heart Rate 77 /min BP Systolic 132 mmHg BP Diastolic 73 mmHg 10/18/2019 2:39pm Body Temperature 98.3 F Weight 230.00 lb Heart Rate 96 /min BP Systolic 112 mmHg BP Diastolic 66 mmHg Height 67 inches 5'7" BMI (Body Mass Index) 36.0 kg/m2 Results Test Acquired Facility Test Result H/L Range Note Date Laboratory test 10/18/2019 [facility] Microbiology res 1 finding Culture <SEE NOTE> Electrolytes 10/15/2019 [facility] Sodium 134 mmol/L Low 135- 145 Chloride 101 mmol/L Normal 101-111 Co2 Carbon Dioxide 23 mmol/L Normal 22-32 Potassium 5.5 mmol/L High 3.5-5.0 Anion Gap 10 mmol/L Normal 2-11 Laboratory test 10/15/2019 [facility] HCG 1.82 mIU/mL 2 finding Laboratory test 09/20/2019 [facility] Urine Culture Microbiology res Abnormal 3 finding <SEE NOTE> Laboratory test 09/20/2019 [facility] TSH 45.59 uIU/mL High 0.35 finding -4.9 4 Laboratory test 09/08/2019 [facility] Urine Culture Microbiology res 4 finding <SEE NOTE> Manual 08/11/2019 [facility] Neutrophils [...] 7.1-10.7 WBC 23.2 K/uL Critical high 4.1-11.0 5 Arterial Blood Gas 08/02/2019 [facility] PH Arterial 7.41 Normal 7.35-7.45 Pco2 Arterial 27 mmHg Low 35-45 Po2 Arterial 181 mmHg High 80-100 O2 Saturation Arterial 99.9 % High 94.0-98.0 Base Excess Arterial -6.0 mmol/L Low -2.0-2.0 6 Hco3 Arterial 20.2 mmol/L Normal 19-31 Inr/Protime 08/02/2019 [facility] Inr 1.27 High 0.82-1.09 7 Laboratory test 08/02/2019 [facility] Activated 36.0 seconds Normal 26.0-38.0 finding Partial Thrombo Time B Type Natriuretic Peptide 73 pg/mL <=100 Urinalysis Profile 08/02/2019 [facility] Urine Color Red Abnormal Urine Appearance Turbid Urine Specific [place] 1.020 Normal 1.010-1.030 Urine pH 6.0 Normal [...] Urine Bacteria Absent Absent Laboratory test 08/02/2019 [facility] Lactic Acid 1.1 mmol/L Normal 0.5-2.0 8 finding Comp Metabolic 08/02/2019 [facility] Sodium 131 mmol/L Low 135 -145 Panel [...] Egfr Non- 3.7 >60 Egfr 4.5 >60 9 Laboratory test 08/02/2019 [facility] Magnesium 2.3 mg/dL Normal 1.9-2.7 finding C Reactive Protein 407.25 mg/L High <8.01 Troponin I 0.01 ng/mL <0.04 10 TSH (Thyroid Stimulating Horm) 22.04 mcIU/mL High 0.34-5.60 CBC Auto Diff 08/02/2019 [facility] White Blood 10.1 10^3/uL Normal 3.5-10.8 Count [...] Cells % 0.0 Urine Culture And 08/02/2019 [facility] Urine Culture SEE RESULT 11 Sensitivities BELOW CBC Auto Diff 07/27/2019 [facility] White Blood 10.7 10^3/uL Normal 3.5-10 Count [...] Cells % 0.2 Comp Metabolic Panel 07/27/2019 [facility] Sodium 137 mmol/L Normal 135-145 Potassium 4.6 [...] Egfr Non- 5.2 >60 Egfr 6.2 >60 12 Urinalysis 07/27/2019 [facility] Urine White 3+(>20/hpf) Abnormal Absent Profile Blood Cell Urine Red Blood Cell 3+(>10/hpf) Abnormal Absent Urine Bacteria Absent Absent Urine Color Red Abnormal Urine Appearance Turbid Urine Specific [place] 1.013 Normal 1.010-1.030 Urine pH TNP 5-9 13 Urine Urobilinogen TNP Negative 14 Urine Ketones TNP Negative 15 Urine Protein TNP Negative 16 Urine Leukocytes TNP Negative 17 Urine Blood TNP Negative 18 * TNP Negative 19 Urine Nitrite TNP Negative 20 Urine Bilirubin TNP Negative 21 Urine Glucose TNP Negative 22 Urine Culture And 07/27/2019 [facility] Urine Culture SEE RESULT 23 Sensitivities BELOW 1 Microbiology results SOURCE Clean Catch Midstream FINAL RESULT No growth 2 <5.0 Negative 5.0 - 25.0 Indeterminate (Repeat testing recommended after 72 hours) >25.0 Positive Perimenopausal women can display HCG levels of up to 20 mIU/mL 3 Microbiology results SOURCE Clean Catch Midstream COLONY [...] TOBRAMYCIN <=4 S TRIMETHOPRIM/SULFAMETHOXAZ <=2/38 S S=Sensitive;I=Indeterminate;R=Resistant 4 Microbiology results SOURCE Clean Catch Midstream FINAL RESULT <10,000 CFU/ML Mixed urogenital zac consistent with contamination. Request fresh specimen if indicated. 5 Result amended from (Not Reported) (08/11/2019 9:17 PM) to (23.2) (08/11/2019 9:17 PM) by LETTY. 6 Reference ranges based on room air. 7 Standard intensity warfarin therapeutic range: 2.0-3.0 High intensity warfarin therapeutic range: 2.5-3.5 8 [facility] Severe Sepsis and Septic Shock Management Bundle Measure requires all lactic acids initially measuring >2.0 mmol/L be repeated. 9 Because ethnic data is not always readily [...] 15-29 5 Kidney failure <15 (or dialysis) 10 Troponin-I testing on Plasma Separator Tubes (PST) has a known false positive rate of 0.20-0.40%. All positive troponins reflex immediately to secondary confirmatory testing. Using the Hostspot DxI 800 Access Immunoassay systems, the 99th percentile upper reference limit was demonstrated to be < 0.03 ng/mL. 11 SEE RESULT BELOW Name: BUFFY TONEY : [address]: Partha Moreno MD Acct: [id number] Unit: [id number] AGE: 43 Location: [place] [address] Re08/02/19 SEX: F Status: ADM IN SPEC: [id number] ES: 08/02/[address]: Arnold Wang MD REQ: [id number] RECD: 08/02/19 STATUS: PATRICK JOHNSON DR: [facility] Regi Gonzalez MD _ SOURCE: URINE SPDESC: ORDERED: Urine Culture Procedure Result Reported Site Urine Culture Final 08/04/19927 ML Organism 1 ESCHERICHIA COLI Hanna Count >100,000 (Many) CFU/ML 1. ESCHERICHIA COLI [...] . END OF REPORT DEPARTMENT OF PATHOLOGY, [address] [place] [address] Graham Ambrocio M.D. Director [facility] # [id number] 12 Because ethnic data is not always readily [...] 15-29 5 Kidney failure <15 (or dialysis) 13 Unable to evaluate urinalysis dipstick results [...] dipstick results due to interfering color. 22 Unable to evaluate urinalysis dipstick results due to interfering color. 23 SEE RESULT BELOW Name: BUFFY TONEY : [address]: Richardson Bautista MD Acct: [id number] Unit: [id number] AGE: 43 Location: ED Re07/27/19 SEX: F Status: DEP ER SPEC: [id number] ES: 07/27/19 [facility] DR: Richardson Bautista MD REQ: [id number] RECD: 07/27/19 STATUS: PATRICK JOHNSON DR: Regi Garnica DRIVER TRAINEE _ SOURCE: URINE SPDESC: ORDERED: Urine Culture Procedure Result Reported Site Urine Culture Final 07/29/19- 0752 ML Organism 1 ESCHERICHIA COLI Hanna Count >100,000 (Many) CFU/ML 1. ESCHERICHIA COLI [...] . END OF REPORT DEPARTMENT OF PATHOLOGY, [address] [place] [address] Graham Ambrocio M.D. Director [facility] # [id number] Procedures Date Code Description Status 08/14/2018 [id number] Mammogram Completed Medical Devices Description No Information Available Encounters Type Date Location Provider Dx Diagnosis Office Visit 10/18/2019 2:20p Prashanth Nguyen PA N39.0 Urinary tract infection, site not specified N18.5 Chronic kidney disease, stage 5 Z99.2 Dependence on renal dialysis R31.9 Hematuria, unspecified Z68.36 Body mass index (BMI) 36.0-36.9, adult Office Visit 09/20/2019 1:00p Prashanth Nguyen PA N39.0 Urinary tract infection, site not specified Z99.2 Dependence on renal dialysis N18.5 Chronic kidney disease, stage 5 E66.9 Obesity, unspecified Z68.35 Body mass index (BMI) 35.0-35.9, adult Office Visit 08/11/2019 2:40p Regi Manuel, E66.9 Obesity, unspecified RN MS CONY D72.829 Elevated white blood cell count, unspecified N18.4 Chronic kidney disease, stage 4 (severe) Z68.38 Body mass index (BMI) 38.0-38.9, adult Office Visit 07/07/2019 2:40p Regi Manuel, Z00.00 Encntr for general RN MS [place] adult medical exam w/o abnormal findings Z13.31 Encounter for screening for depression I10 Essential (primary) hypertension F41.1 Generalized anxiety disorder Z23 Encounter for immunization M25.572 Pain in LEFT ankle and joints of LEFT foot E78.2 Mixed hyperlipidemia Z68.37 Body mass index (BMI) 37.0-37.9, adult Assessments Date Code Description Provider 11/12/2019 N39.0 Urinary tract infection, site not Prashanth Davidson PA specified 11/12/2019 R31.9 Hematuria, unspecified Prashanth Davidson PA 11/12/2019 N18.5 Chronic kidney disease, stage 5 Prashanth Davidson PA 11/12/2019 Z99.2 Dependence on renal dialysis Prashanth Davidson PA 10/18/2019 N39.0 Urinary tract infection, site not Prashanth Davidson PA specified 10/18/2019 N18.5 Chronic kidney disease, stage 5 Prashanth Davidson PA 10/18/2019 Z99.2 Dependence on renal dialysis Prashanth Davidson PA 10/18/2019 R31.9 Hematuria, unspecified Prashanth Davidson PA 10/18/2019 Z68.36 Body mass index (BMI) 36.0-36.9, Prashanth Davidson PA adult 10/18/2019 N39.0 Urinary tract infection, site not [facility] specified 09/20/2019 E78.2 Mixed hyperlipidemia [facility] [...] [facility] 09/20/2019 Z79.899 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 [facility] therapy 09/20/2019 [...] 08/11/2019 E66.9 Obesity, unspecified Regi Garnica RN [facility] 08/11/2019 D72.829 Elevated white blood cell count, Regi Garnica RN [facility] unspecified 08/11/2019 N18.4 Chronic kidney disease, stage 4 Regi Garnica RN [facility] (severe) 08/11/2019 Z68.38 Body mass index (BMI) 38.0-38.9, Regi Garnica RN [facility] adult 08/11/2019 D72.829 Elevated white blood cell count, [facility] unspecified 08/11/2019 D72.829 Elevated white blood cell count, [facility] unspecified 07/07/2019 Z00.00 Encounter for general adult medical Regi Garnica RN [facility] examination without abnormal findings 07/07/2019 Z13.31 Encounter for screening for Regi Garnica RN [facility] depression 07/07/2019 I10 Essential (primary) hypertension Regi Garnica, HANSEL MS [facility] 07/07/2019 F41.1 Generalized anxiety disorder Regi Garnica RN MS [employer] 07/07/2019 Z23 Encounter for immunization Regi Garnica RN MS [employer] SPECIAL[employer] 07/07/2019 M25.572 Pain in LEFT ankle and joints of LEFT Regi Garnica RN [facility] foot 07/07/2019 E78.2 Mixed hyperlipidemia Regi Garnica, RN MS [employer] SPECIALIST 07/07/2019 Z68.37 Body mass index (BMI) 37.0-37.9, Regi Garnica, RN MS [employer] SPECIALIST adult Plan of Treatment 11/12/2019 - Prashanth Davidson, GAGE39.0 Urinary tract infection, site not specifiedNew Medication:Ciprofloxacin HCL 500 mg - 1 by mouth twice a day for 10daysNew Labs:Chlamydia & GC, Dna-[facility], Ordered: 11/12/19Urine Culture, Ordered: 11/12/19Comments:+nocturia. cannot use macrobid with dialysis and very little urine production. Rx Cipro for extended course. sent for culture. 2nd in less than a month. will treat with Cipro again and then start Bactrim SS daily for prophylaxis. UPDATE 11/12/2019:will treat with Cipro again. getting water tested from well. maintain Bactrim.??refer to urology.R31.9 Hematuria, qsdcvmuwamnZ88.5 Chronic kidney disease, stage 5Z99.2 Dependence on renal dialysis Functional Status Description No Information Available Mental Status Description No Information Available Referrals Description No Information Available
--- OUTSIDE RECORDS SUMMARY | 2019-11-29 11:09 | XMS REPORT | Continuity of Care Document ---
:1975 External Reference #:[id number] Author Name Karl Abraham Address [address] [facility], [place] [address] Care Team Providers Name Role Phone Shakeel Gonzalez M.D. - Nephrology Care Team Information Sub Master Regi Garnica NP - Family Care Team Information Sub Master [phone] Problems Active Problems Provider Date Chronic kidney [...] Zofran 1 tab by mouth 30tabs N18.4 Abrhaam Barajas 03/12/2018 4mg Tablets every 6 hours [...] pain Nortriptyline HCL Regi Garnica, 25mg Capsules [employer] Cetirizine HCL Prashanth Davidson PA 10mg Tablets Omeprazole Take One Capsule By Unknown 40mg Capsules DR Mouth Every Day [place] Arthritis Pain Take One Tablet By Unknown 650mg Tablets ER Mouth Three Times A Day For Arthritis Pain Furosemide Prashanth Davidson PA 20mg Tablets Ipratropium [place]/Albuterol Regi Garnica, Sulfate WEBBING TACKER 0.5-2.5(3)mg/3ML Solution Escitalopram Oxalate Take One Tablet By Unknown 10mg Tablets Mouth Every Day Baclofen Take One Tablet By Unknown 10mg Tablets Mouth Twice A Day as Needed For Muscle Spasms Immunizations CPT Code Status Date Vaccine Lot # [id number] Given 08/03/2019 Influenza Vaccine 53748-576-72 36934 Given 08/03/2018 Pneumococcal Vaccine 96116 Given 08/03/2018 Influenza Vaccine 68740-525-09 79731 Refused 02/26/2018 Influenza Vaccine 64716-217-84 Vital Signs Date Vital Result Comment 11/04/2019 [...] Test Result H/L Range Note Electrolytes 10/15/2019 [facility]) Sodium 134 mmol/L Low 135-145 [address] [place] [address] [phone] Chloride 101 mmol/L Normal 101-111 Co2 Carbon Dioxide 23 mmol/L Normal 22-32 Potassium 5.5 mmol/L High 3.5-5.0 Anion Gap 10 mmol/L Normal 2-11 Laboratory test 10/15/2019 [facility]) HCG 1.82 mIU/mL 1 finding [address] [place] [address] [phone] 1 <5.0 Negative 5.0 - 25.0 Indeterminate (Repeat testing recommended after 72 hours) >25.0 Positive Perimenopausal women can display HCG levels of up to 20 mIU/mL Procedures Date Code Description Status 10/15/2019 71523 Anastomosis Arteriovenous Direct Any Site Completed 09/16/2019 10626 Duplex Scan Extremity Veins, Unilateral Or Limited Study Completed 06/25/2019 84681 Dialysis Circuit, Intro [place]/Cath W/ Diagnostic Completed Angiography 06/25/2019 18694 Thrombectomy Av Fistula W/Out Revision; Auto/Nonauto Completed Dialysis GFT 06/25/2019 17731 Anastomosis Arteriovenous Direct Any Site Completed 06/18/2019 33876 Dialysis Circuit W/ Transcatheter Placement Intravascular Completed Stent(S 06/18/2019 80514 Revision W/Thrombectomy Av Fistula Auto/Nonauto Dialysis Completed Graft 06/14/2019 67000 Duplex Scan Extremity Veins, Unilateral Or Limited [...] stage 4 (severe) Barajas, Abraham 11/04/2019 Z79.01 [facility] (current) use of anticoagulants Barajas, Abraham 11/04/2019 Z99.2 Dependence on renal dialysis Barajas, Abraham 11/04/2019 Z68.34 Body mass index (BMI) 34.0-34.9, adult Barajas, Abraham 10/22/2019 T82.510A Breakdown (mechanical) of surgically created BarajasAbraham arteriovenous fistula, initial encounter 10/22/2019 Q61.2 Polycystic kidney, adult type Barajas, Abraham 10/22/2019 N18.4 Chronic kidney disease, stage 4 (severe) Barajas, Abraham 10/22/2019 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 Barajas, Abraham 10/22/2019 Z99.2 Dependence on renal dialysis Barajas, Abraham 10/15/2019 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 Barajas, Abraham 10/15/2019 T82.510A Breakdown (mechanical) of surgically created BarajasAbraham arteriovenous fistula, initial encounter 10/15/2019 Q61.2 Polycystic kidney, adult type Barajas, Abraham 10/15/2019 N18.4 Chronic kidney disease, stage 4 (severe) Barajas, Abraham 10/15/2019 Z99.2 Dependence on renal dialysis Barajas, Abraham 09/16/2019 Q61.2 Polycystic kidney, adult type Barajas, [facility] 09/16/2019 Z99.2 Dependence on renal dialysis Barajas, [facility] 09/16/2019 Z01.818 Encounter for other preprocedural examination Barajas, Abraham 09/16/2019 T82.510A Breakdown (mechanical) of surgically created Barajas, Abraham arteriovenous fistula, initial encounter 09/16/2019 Z68.34 Body mass index (BMI) 34.0-34.9, adult Barajas, Abraham 08/19/2019 T82.858A Stenosis of other vascular prosthetic devices, Barajas, Abraham implants and 08/19/2019 N18.4 Chronic kidney disease, stage 4 (severe) Barajas, [facility] 08/19/2019 Q61.2 Polycystic kidney, adult type Barajas, [facility] 08/19/2019 Z99.2 Dependence on renal dialysis Barajas, [facility] 08/19/2019 Z68.36 Body mass index (BMI) [...]
[2019-11-29] MEDS ORDERED: fentaNYL* 50 MCG/ML 2 ML VIAL (100 MCG VIAL) IV SLOW PU ONE (13:30)
[2019-11-29] MEDS ORDERED: NS 0.9% 1000 ML** 1,000 ML IV ONE (13:31)
[2019-11-29] MEDS ORDERED: Famotidine IV* 10 MG/ML 2 ML (20 mg) IV SLOW PU ONE (16:33)
--- NOTE | 2019-11-29 16:35 | HP ---
H&P (Free Text) History and Physical: This is a 43 year old female with end stage renal disease presenting to the ER with abdominal pain that began 2 days ago, which the patient believes to be related to her umbilical hernia. She states it was a 10/10, but is now improved. It is located right in the center of the abdomen above the umbilicus. It is not radiating. Pain is aggravated by food. She was able to eat food yesterday, but today she did not eat due to the pain. She is taking Oxycodone and Tramadol for the pain with no relief. She has been seeing Dr. Lopez for management of the umbilical hernia, which has been conservative treatment and pain management.The hernia had been reducible up to 2 days ago. This hernia has been repaired twice in the past. She denies any f/c, n/v, diarrhea, constipation or blood in the stool. Her last dialysis treatment was last night. Past Medical Hx: End-stage renal disease, Asthma, HTN, Hypothyroidism, GERD, Anxiety, Depression. Denies any bleeding disorders, problems with anesthesia. Ischemic Stroke - 2018 Past Family Hx: Denies any bleeding disorders, problems with anesthesia. Past Surgical Hx: Hernia repair (2017) PD cather replacement and revision () AV Fistula - October 2019 Social History: Lives with . Denies alcohol, tobacco, or recreational drug use. Allergies: Morphine - reaction involves difficulty breathing and stiffness throughout the body Home Medications Medication Instructions Recorded Confirmed Type Omeprazole CAP (NF) [Prilosec CAP* 40 mg PO QAM 01/20/13 11/29/19 History 20 MG] Cetirizine* [ZyrTEC 10 MG TAB*] 10 mg PO QAM 06/30/17 11/29/19 History Montelukast Sodium TAB* [Singulair 10 mg PO QAM 06/30/17 11/29/19 History 10 MG TAB*] Nortriptyline CAP* [Pamelor CAP*] 25 mg PO BEDTIME 06/30/17 11/29/19 History Cholecalciferol TAB* [Vitamin D 2,000 units PO QAM 12/22/17 11/29/19 History TAB*] Aspirin 81 mg CHEW TAB* 81 mg PO QAM 05/07/18 11/29/19 History Cyanocobalamin TAB* [Vitamin B12 500 mcg PO QAM 05/07/18 11/29/19 History TAB*] Vitamin E CAP* 1,000 unit PO QAM 05/07/18 11/29/19 History Acetaminop/Codeine 30 MG TAB* 1 tab PO Q6H PRN 06/07/19 11/29/19 History [Tylenol/Codeine 30 MG TAB*] Escitalopram * [Lexapro 10 mg (NF)] 10 mg PO QAM 06/08/19 11/29/19 History Levothyroxine TAB* [Synthroid TAB*] 50 mcg PO QAM 10/13/19 11/29/19 History Fluticasone/Vilanterol MDI(NF) 1 puff INH DAILY 11/29/19 11/29/19 History [Breo Ellipta MDI (NF)] Ipratropium/Albuterol Sulfate 3 ml INH Q6HR PRN 11/29/19 11/29/19 History [Iprat-Albut 0.5-3(2.5) mg/3 ml] LORazepam(nf) [Ativan TAB(nf)] 2 mg PO DAILY PRN 11/29/19 11/29/19 History Lisinopril TAB* [Prinivil TAB*] 20 mg PO DAILY 11/29/19 11/29/19 History Magnesium Oxide TAB* [MagOx 400 400 mg PO BID 11/29/19 11/29/19 History TAB*] Ondansetron TAB* [Zofran 4 MG Tab*] 4 mg PO Q6H PRN 11/29/19 11/29/19 History Ropinirole TAB* [Requip TAB*] 0.25 mg PO BEDTIME 11/29/19 11/29/19 History Simvastatin TAB(NF) [Zocor(NF)] 20 mg PO DAILY 11/29/19 11/29/19 History Sulfamethox/Trimethoprim SS* 1 tab PO DAILY PRN 11/29/19 11/29/19 History [Bactrim SS 400/80 TAB*] dilTIAZem HCl [Diltiazem 24Hr ER] 120 mg PO DAILY 11/29/19 11/29/19 History oxyCODONE/Acetamin 5/325 MG* 1 tab PO BID PRN 11/29/19 11/29/19 History [Percocet 5/325 TAB*] rOPINIRole TAB* [Requip TAB*] 1 mg PO BEDTIME 11/29/19 11/29/19 History ROS: Denies fever, CP, SOB, N/V, constipation, diarrhea, hematochezia, dysuria, arthralgias, swelling of the legs Vital Signs: Temp Pulse Resp BP Pulse Ox 96.7 F 63 14 108/66 96 11/29/19 16:35 11/29/19 16:35 11/29/19 16:35 11/29/19 16:35 11/29/19 16:35 Physical Exam: General: Pt lying in stretcher in NAD. HEENT: PERRL, sclera anicteric. Mouth: Uvula midline. No erythema in the pharynx. Dentition in good repair. CV: RRR Resp: Slight wheeze on inspiration bilaterally. Abd: Soft, large. Hypoactive bowel sounds throughout. Multiple small incisional scars from previous surgery. Abdomen severely tender to palpation right above the umbilicus. Hernia defect not palpable due to large body habitus and tenderness. PD catheter drain from LLQ. Skin: AV Fistula to left antecubital space. No rashes. Lymph: No cervical lymphadenopathy. Laboratory Last Values Hgb 18.5 g/dL (12.0-16.0) H 11/29/19 16:53 Hct 54 % (35-47) H 11/29/19 16:53 Sodium 133 mmol/L (135-145) L 11/29/19 16:53 Potassium 5.8 mmol/L (3.5-5.0) H 11/29/19 16:53 Chloride 103 mmol/L (101-111) 11/29/19 16:53 Carbon Dioxide 21 mmol/L (22-32) L 11/29/19 16:53 Anion Gap 9 mmol/L (2-11) 11/29/19 16:53 BUN 38 mg/dL (6-24) H 11/29/19 16:53 Creatinine 9.36 mg/dL (0.51-0.95) H 11/29/19 16:53 Est GFR ( Amer) 5.5 (>60) 11/29/19 16:53 Est GFR (Non-Af Amer) 4.6 (>60) 11/29/19 16:53 BUN/Creatinine Ratio 4.1 (8-20) L 11/29/19 16:53 Glucose 73 mg/dL (70-100) 11/29/19 16:53 Calcium 7.9 mg/dL (8.6-10.3) L 11/29/19 16:53 Total Bilirubin 0.30 mg/dL (0.2-1.0) 11/29/19 16:53 AST 13 U/L (13-39) 11/29/19 16:53 ALT 6 U/L (7-52) L 11/29/19 16:53 Alkaline Phosphatase 51 U/L (34-104) 11/29/19 16:53 Total Protein 6.1 g/dL (6.4-8.9) L 11/29/19 16:53 Albumin 3.3 g/dL (3.2-5.2) 11/29/19 16:53 Globulin 2.8 g/dL (2-4) 11/29/19 16:53 Albumin/Globulin Ratio 1.2 (1-3) 11/29/19 16:53 Imaging: CT scan findings: Impression: 1. JUST ABOVE THE UMBILICUS, THE ANTERIOR ABDOMINAL WALL HERNIA CONTAINS FAT AND FLUID. THE SAC IS INCREASED IN SIZE FROM COMPARISON IMAGING. THE HERNIA NECK MEASURES 2.4 X 2.0 CM. 2. TRACE NEW PERIHEPATIC, PERISPLENIC AND PELVIC ASCITES OF WATER ATTENUATION ABOVE. THE COILED PERITONEAL CATHETER TERMINATES IN THE PELVIS. 3. INNUMERABLE HEPATORENAL CYSTS (INCOMPLETE EVALUATED WITHOUT CONTRAST). 4. AN IUD IS IN PLACE. Abdominal XRay: IMPRESSION: NO EVIDENCE FOR OBSTRUCTION OR FREE INTRAPERITONEAL AIR. Abdominal U/S: IMPRESSION: INTERVAL ENLARGEMENT OF THE PERIUMBILICAL HERNIA SAC. NO PERISTALSIS IS SEEN WITHIN THE SAC. THERE IS AN AREA OF INCREASED ECHOGENICITY WITHIN THE HERNIA WHICH MOST LIKELY REPRESENTS FAT. CT IMAGING WOULD BE MORE SPECIFIC TO EXCLUDE HERNIATED BOWEL. Assessment: This is a 43 year old female with end stage renal disease and an Incarcerated Umbilical Hernia without obstruction or gangrene. Plan: Plan is for open umbilical hernia repair with possibility of mesh. Risks include but are not limited to bleeding, infection, damage to other organs and recurrence. As the AV Fistula was recently placed and is not fully mature, a tunneled hemodialysis catheter will be placed.
[2019-11-29] MEDS ORDERED: HYDROmorphone INJ* 0.5 MG/0.5 ML SYRINGE IV ONE (16:40)
[2019-11-29] MEDS ORDERED: fentaNYL* 50 MCG/ML 2 ML VIAL (100 MCG VIAL) IV PRN (16:41)
[2019-11-29] MEDS ORDERED: oxyCODONE/Acetamin 5/325 MG* TAB PO PRN (16:41)
[2019-11-29] MEDS ORDERED: HYDROmorphone INJ1* 1 MG/ML SYRINGE IV PRN (16:41)
[2019-11-29] MEDS ORDERED: HYDROcodone/ACETAMIN 5-325 MG* 1 TAB PO PRN ×2 (16:41→20:08)
[2019-11-29] MEDS ORDERED: Naloxone* 0.4 MG/ML 1 ML VIAL IV PRN (16:41)
[2019-11-29] MEDS ORDERED: HYDROmorphone INJ1* 1 MG/ML SYRINGE ONE ×2 (16:42→17:58)
[2019-11-29] MEDS ORDERED: Bupivacaine 0.25% SDV* 30 ML ONE (17:09)
[2019-11-29] MEDS ORDERED: Bupivacaine 0.5%* 50 ML MDV VIAL ONE (17:09)
[2019-11-29] MEDS ORDERED: Lidocaine 1% w EPI 1:100,000* MDV 20 ML VIAL ONE (17:09)
[2019-11-29] MEDS ORDERED: Midazolam* 1 MG/ML 5 ML VIAL (5 MG) ONE (17:12)
[2019-11-29] MEDS ORDERED: Propofol* 10 MG/ML 20 ML BTL ONE (17:12)
[2019-11-29] MEDS ORDERED: fentaNYL* 50 MCG/ML 2 ML VIAL (100 MCG VIAL) ONE (17:12)
[2019-11-29] MEDS ORDERED: Rocuronium* 10 MG/ML VIAL ONE (17:12)
[2019-11-29] MEDS ORDERED: Heparin VIAL(*) 5000 UNITS/ML VIAL (FIVE THOUSAND) ONE (17:13)
[2019-11-29] MEDS ORDERED: Lidocaine 2% PF * 5 ML VIAL ONE (17:13)
[2019-11-29] MEDS ORDERED: ceFAZolin 2 GM PREMIX in ORs 2 GM/50 ML BAG ONE (17:15)
[2019-11-29 17:41] LABS: Hematocrit 54 % (35-47); Hemoglobin 18.5 g/dL (12.0-16.0)
[2019-11-29 17:49] LABS: Albumin 3.3 g/dL (3.2-5.2); Calcium 7.9 mg/dL (8.6-10.3); Potassium 5.8 mmol/L (3.5-5.0); Total Bilirubin 0.3 mg/dL (0.2-1.0)
[2019-11-29 17:55] LABS: Albumin/Globulin Ratio 1.2 (1-3); BUN/Creatinine Ratio 4.1 (8-20); EGFR African American 5.5 (>60); EGFR Non-African American 4.6 (>60); Globulin 2.8 g/dL (2-4); Total Protein 6.1 g/dL (6.4-8.9)
[2019-11-29] MEDS ORDERED: Neostigmine Methylsulfate* 3 MG/3 ML SYRINGE ONE (19:55)
[2019-11-29] MEDS ORDERED: LORazepam TAB(*) 1 MG PO PRN (20:12)
[2019-11-29] MEDS ORDERED: Sulfamethox/Trimethoprim SS 400/80* TAB PO PRN (20:12)
[2019-11-29] MEDS ORDERED: Ondansetron TAB* 4 MG PO PRN (20:12)
[2019-11-29] MEDS ORDERED: Albuterol/Ipratropium NEB.SOL* Albuterol 2.5 MG/Ipratropium 0.5 MG 3 ML INH PRN (20:12)
[2019-11-29] MEDS ORDERED: NS 0.9% 1000 ML** 1,000 ML IV SCH (20:15)
[2019-11-29] MEDS ORDERED: Ondansetron INJ* 2 MG/ML VIAL ONE (20:16)
--- NOTE | 2019-11-29 20:25 | OP ---
Operative Report - Blank - Operative Report Date of Operation: 11/29/19 Note: Pre-OP Diagnoses: ventral hernia, ESRD Post-op Diagnosis: same Procedure: placement of tunneled hemodialysis catheter, repair of ventral hernia with mesh Surgeon: Jessica Asst: Boubacar Anethesia: BELEM EBL: 100cc IVF: minimal Specimen: hernia sac Drains: catheter placed via RIJV
[2019-11-29] MEDS: Ondansetron INJ* 2 MG/ML VIAL IV PRN (20:38)
[2019-11-29] MEDS ORDERED: Nortriptyline CAP* 25 MG PO SCH (21:00)
[2019-11-29] MEDS ORDERED: rOPINIRole TAB* 1 MG PO SCH (21:00)
[2019-11-29] MEDS ORDERED: Metoclopramide IV* 5 MG/ML 2 ML VIAL IV PRN (23:11)
[2019-11-29] MEDS: Magnesium Oxide TAB* 400 MG PO SCH (23:37)
[2019-11-29] MEDS: oxyCODONE/Acetamin 5/325 MG* TAB PO PRN (23:52)
[2019-11-30] MEDS: oxyCODONE/Acetamin 5/325 MG* TAB PO PRN (04:03)
[2019-11-30 05:17] LABS: ABS Eosinophils 0.1 10^3/ul (0-0.6); ABS Monocytes 0.8 10^3/ul (0-0.8); ABS Neutrophils 6.2 10^3/ul (1.5-7.7); Eosinophil % 1.1 %; Hematocrit 53 % (35-47); Hemoglobin 17.9 g/dL (12.0-16.0); Lymphocyte % 22.1 %; Mean Corpuscular HGB Conc 34 g/dL (31-36); Mean Corpuscular Hemoglobin 34 pg (27-31); Mean Corpuscular Volume 99 fL (80-97); Mean Platelet Volume 8.9 fL (7.4-10.4); Nucleated Red Blood Cells % 0.3; Platelet Count 122 10^3/uL (150-450); Red Blood Count 5.36 10^6 /uL (3.70-4.87); Red Cell Distribution Width 17 % (10-15); White Blood Count 9.2 10^3/uL (3.5-10.8)
[2019-11-30] MEDS: Ondansetron INJ* 2 MG/ML VIAL IV PRN ×2 (05:33→12:45)
[2019-11-30 05:37] LABS: BUN/Creatinine Ratio 4.3 (8-20); Calcium 7.9 mg/dL (8.6-10.3); EGFR African American 5.4 (>60); EGFR Non-African American 4.4 (>60)
[2019-11-30 05:39] LABS: Potassium 5.6 mmol/L (3.5-5.0)
[2019-11-30] MEDS ORDERED: Levothyroxine TAB* 50 MCG TAB PO SCH (06:00)
--- NOTE | 2019-11-30 06:31 | OP ---
CC: Regi Garnica NP; Dr. Abraham Barajas; [facility]; Dr. Adam CMA Nephrology * DATE OF OPERATION: 11/29/19 - ROOM #339 DATE OF : 75 SURGEON: Marcos Lopez MD ROLE PLAYER: SPRING Duncan ANESTHESIA: General anesthesia. PRE-OP DIAGNOSES: Incarcerated ventral hernia and end-stage renal disease. POST-OP DIAGNOSES: Incarcerated ventral hernia and end-stage renal disease. OPERATIVE PROCEDURE: Insertion of tunneled hemodialysis catheter and open repair of ventral hernia with mesh. INDICATIONS: Ms. Toney is a 43-year-old female known to me after undergoing open umbilical hernia in the past, primary closure. She has also had a peritoneal dialysis catheter placement and replaced. She is successfully undergoing peritoneal dialysis, but has been having an intermittent symptomatic ventral hernia, felt to be either recurrent or new epigastric hernia. Plan was for open repair when the patient was suitable for hemodialysis. The patient has been seen and treated for an AV fistula, that is still in the process of being matured. The patient presented to the emergency room today with complaints of severe pain , was diagnosed with incarcerated ventral hernia, and I discussed the case with her feeling that it was most suitable to repair the hernia now as it was getting bigger and significantly symptomatic and start the patient on a brief course of hemodialysis before placing her back to peritoneal dialysis. I outlined the details of the procedure going over the risks, benefits, and alternatives to the vascular access that would include possible hemothorax and pneumothorax. Also, I talked about the possibility of catheter failure, infection and the need for replacement. I also talked about the possibility of recurrent hernia, mesh infection, peritoneal infection and the possible need for additional procedures including removal of the peritoneal dialysis catheter. The patient understood and signed consent. ESTIMATED BLOOD LOSS: Approximately 100 cc. FLUIDS: Crystalloid fluid given. See Anesthesia report for details. SPECIMENS: Hernia sac. DRAINS: A 32-cm BioFlo to lumen catheter placed via the right IJ vein. CONDITION: The patient extubated and transferred to the PACU in stable condition. DESCRIPTION OF THE PROCEDURE: She was marked appropriately in the preoperative area and taken to the operating room. On the operating table, general anesthesia was induced. The patient had preoperative antibiotics given. Sequential devices were placed on bilateral lower extremities. The right upper chest and neck were prepped and draped in a standard surgical fashion and a time -out was performed. With the help of ultrasound, the right IJ was accessed and a wire inserted. This briefly stopped and under fluoroscopy, it was not clear where it was headed. It was not able to be pushed any further and it was only just at the tip of the needle. For this reason, I removed it and used a micro access set. This gave us an opportunity to get the wire somewhat more distal, although it also blocked up to some extent. I incised over the wire and inserted the micro access sheath and removed the wire. There was no blood forthcoming, but after I backed the catheter out a bit, we obtained blood. Next, a stiff guidewire was then inserted, but again stopped and it was unable to be passed any further past the sternal notch area. We then used a thinner Glidewire and we passed this into the superior vena cava and beyond. This gave us the opportunity to place a dilator. Using the dilator from the catheter, this was placed through and we were able to remove the wire and access blood. With good blood draw, I put the stiffer wire in and under fluoroscopy, it was noted to be in the appropriate position in the superior vena cava. It was at this point, we were able to dilate this up appropriately under fluoroscopy and with the tunneled catheter through the right upper chest, we were able to place this through the split away catheter. It unfortunately was kinked and I could not access blood without manipulating this and once we manipulated it a couple of times, it was clear that it was no longer in the superior vena cava, but closer to the brachiocephalic junction. At this point, I cut the catheter and ran the stiff wire through the catheter and brought out the intravascular portion of the tubing and removed the superficial tubing as well and passed this off. Using a longer catheter and in a similar fashion put the split away catheter in and placed the longer dialysis catheter into the vein through the neck. It was appropriately positioned in the superior vena cava. A split away catheter removed and at this time, we did not have a kink. It was sutured to the skin at the exit side on the chest and the incision of the neck was closed with a 4- 0 Vicryl suture. Sterile dressing was applied. The one port was flushed with heparinized saline. The other port was offered to the anesthesiologist who had difficult time with IV access and he utilized this for the remainder of the case. Next, the drapes were removed and the abdomen was prepped and draped in the standard surgical fashion prepping the PD catheter, but draping it off the field. A skin incision was made through previous incision at the supraumbilical region. It was extended superiorly and deepened down to her hernia sac, which was isolated from the abdominal wall and this appeared to an epigastric hernia away from the umbilicus approximately 3 cm. The defect itself was about 2 cm. The hernia sac was cleared up all around and then we entered the hernia sac. A portion of the necrotic omentum was isolated and removed. The hernia sac itself was ligated and a pursestring 2-0 PDS suture was used. Prior to doing this, we did make a space in the retrorectus in this plane to prevent an intraperitoneal mesh. A 6.4-cm Ventralex mesh was then placed in extraperitoneal space and allowed to unfurl, sutured inferiorly and superiorly and also at the lateral aspects to the fascia. Again, it was non- intraperitoneal. We then closed the fascia with #1 Vicryl sutures. We utilized 0 Vicryl sutures to tack the mesh down. We used multiple interrupted Vicryl sutures for the closure of the fascia. The wound was then irrigated, hemostasis achieved. We reapproximated the subcutaneous tissues with 2-0 Vicryl followed by skin adrian. Sterile dressing was applied. The patient tolerated the procedure well and was woken up in the OR and transferred to the PACU in stable condition. [id number]/[facility] #: [id number] JOSSELINE
[2019-11-30 07:44] VITALS: BP 132/58
--- NOTE | 2019-11-30 08:52 | PN ---
Progress Note - Progress Note Date of Service: 11/30/19 SOAP: Subjective: Ms. Toney reports that the night went well. She states her pain is a 3/10. She has been drinking water and juice and is tolerating this well. She denies any nausea or vomiting. She reports passing flatus, but has not had any BMs yet. She denies any SOB. Objective: Vital Signs Temp 98.6 F 11/30/19 07:30 Pulse 62 11/30/19 07:30 Resp 18 11/30/19 08:00 BP 132/58 11/30/19 07:30 Pulse Ox 100 11/30/19 07:30 Laboratory Last Values WBC 9.2 10^3/uL (3.5-10.8) 11/30/19 05:03 RBC 5.36 10^6 /uL (3.70-4.87) H 11/30/19 05:03 Hgb 17.9 g/dL (12.0-16.0) H 11/30/19 05:03 Hct 53 % (35-47) H 11/30/19 05:03 MCV 99 fL (80-97) H 11/30/19 05:03 MCH 34 pg (27-31) H 11/30/19 05:03 MCHC 34 g/dL (31-36) 11/30/19 05:03 RDW 17 % (10-15) H 11/30/19 05:03 Plt Count 122 10^3/uL (150-450) L 11/30/19 05:03 MPV 8.9 fL (7.4-10.4) 11/30/19 05:03 Neut % (Auto) 67.7 % 11/30/19 05:03 Lymph % (Auto) 22.1 % 11/30/19 05:03 [place] % (Auto) 8.6 % 11/30/19 05:03 Eos % (Auto) 1.1 % 11/30/19 05:03 Baso % (Auto) 0.5 % 11/30/19 05:03 Absolute Neuts (auto) 6.2 10^3/ul (1.5-7.7) 11/30/19 05:03 Absolute Lymphs (auto) 2.0 10^3/ul (1.0-4.8) 11/30/19 05:03 Absolute Monos (auto) 0.8 10^3/ul (0-0.8) 11/30/19 05:03 Absolute Eos (auto) 0.1 10^3/ul (0-0.6) 11/30/19 05:03 Absolute Basos (auto) 0.0 10^3/ul (0-0.2) 11/30/19 05:03 Absolute Nucleated RBC 0.0 10^3/ul 11/30/19 05:03 Nucleated RBC % 0.3 11/30/19 05:03 Sodium 132 mmol/L (135-145) L 11/30/19 05:03 Potassium 5.6 mmol/L (3.5-5.0) H 11/30/19 05:03 Chloride 104 mmol/L (101-111) 11/30/19 05:03 Carbon Dioxide 19 mmol/L (22-32) L 11/30/19 05:03 Anion Gap 9 mmol/L (2-11) 11/30/19 05:03 BUN 41 mg/dL (6-24) H 11/30/19 05:03 Creatinine 9.63 mg/dL (0.51-0.95) H 11/30/19 05:03 Est GFR ( Amer) 5.4 (>60) 11/30/19 05:03 Est GFR (Non-Af Amer) 4.4 (>60) 11/30/19 05:03 BUN/Creatinine Ratio 4.3 (8-20) L 11/30/19 05:03 Glucose 111 mg/dL (70-100) H 11/30/19 05:03 Calcium 7.9 mg/dL (8.6-10.3) L 11/30/19 05:03 Total Bilirubin 0.30 mg/dL (0.2-1.0) 11/29/19 16:53 AST 13 U/L (13-39) 11/29/19 16:53 ALT 6 U/L (7-52) L 11/29/19 16:53 Alkaline Phosphatase 51 U/L (34-104) 11/29/19 16:53 Total Protein 6.1 g/dL (6.4-8.9) L 11/29/19 16:53 Albumin 3.3 g/dL (3.2-5.2) 11/29/19 16:53 Globulin 2.8 g/dL (2-4) 11/29/19 16:53 Albumin/Globulin Ratio 1.2 (1-3) 11/29/19 16:53 Physical Exam: General: Patient is lying in bed in NAD Neck: Slight erythema surrounding the tunneled catheter. Moderate tenderness to palpation. Dressing c/d/i. CV: RRR, no murmurs, rubs or gallops Resp: Crackles throughout the mid-lower lung monsivais bilaterally Abdomen: Soft, nondistended. Positive normoactive bowel sounds. Slight tenderness surrounding the incisional site. Moderate tenderness to deep palpation of the RUQ. Abdominal dressings c/d/i. MSK: No erythema or swelling to the LEs bilaterally. Assessment and Plan: The patient is a 43 year old female with end stage renal disease s/p ventral hernia repair POD #1. She is stable and tolerating diet well. Pain is well controlled. Potassium is elevated, patient will be going to hemodialysis today. Spoke to nurse - plan is to administer nebulizer as per patients home routine. Ambulate OOB. Continue incentive spirometry and SCDs. Consulted with Dr. Lopez - plan is to go home today. <Yahaira Omer - Last Filed: 11/30/19 08:27> - Progress Note SOAP: Subjective: I saw and evaluated the patient. Agree with NPP's note. Plan: d/c home later today after HD, follow up next week with surg, later this week with nephrology <Marcos Lopez - Last Filed: 11/30/19 08:57>
[2019-11-30] MEDS ORDERED: Aspirin 81 mg CHEW TAB* 81 MG TAB.CHEW PO SCH (09:00)
[2019-11-30] MEDS ORDERED: Diltiazem CD CAP* 120 MG PO SCH (09:00)
[2019-11-30] MEDS ORDERED: Vitamin E CAP* 200 UNITS PO SCH (09:00)
[2019-11-30] MEDS ORDERED: Mometasone/Formoter 100/5 MDI INH SCH (09:00)
[2019-11-30] MEDS ORDERED: Cetirizine* 10 MG TAB PO SCH (09:00)
[2019-11-30] MEDS ORDERED: Escitalopram * 10 MG TAB PO SCH (09:00)
[2019-11-30] MEDS ORDERED: Montelukast Sodium TAB* 10 MG PO SCH (09:00)
[2019-11-30] MEDS ORDERED: Cholecalciferol TAB* 1000 UNITS PO SCH (09:00)
[2019-11-30] MEDS ORDERED: Pantoprazole TAB * 40 MG TAB PO SCH (09:00)
[2019-11-30] MEDS ORDERED: Cyanocobalamin TAB* 500 MCG PO SCH (09:00)
[2019-11-30] MEDS ORDERED: Lisinopril TAB* 10 MG PO SCH (09:00)
[2019-11-30] MEDS ORDERED: Atorvastatin* 10 MG TAB PO SCH (09:00)
[2019-11-30] MEDS ORDERED: Heparin DIALYSIS ONLY(*) 1,000 UNITS/ML VIAL DIALYSIS ONE (11:00)
--- NOTE | 2019-11-30 11:19 | CONSULT ---
Consult Consult: Consult requested for: ESRD Consult requested by: Dr. Lopez, Surgery Performed by Dr. Zofia Medina, [facility] Nephrology 11/30/2019 43 yo WF ESRD on PD, went to ED with 2 day history of abdominal pain, very severe yesterday. Surgery saw her in ED, has umbilical/ventral Hernia, gotten bigger since their last evaluation, doubted incarceration, s/p repair with mesh last night, has to be off of PD and hence had Rt IJ TDC. Shell be switched to HD for few weeks. Had clear PD fluid and no NVD. PMH: ESRD HTN Asthma Hypothyroidism HomeMeds:Reviewed Hospital Meds: Hydrocodone Bitart/Acetaminophen ([place] 5-325 Tab*) 1 tab PO Q4H PRN PRN Reason: PAIN - MODERATE Albuterol/Ipratropium (Duoneb (Albuterol 2.5 Mg/Ipratropium 0.5 Mg)) 1 neb INH Q6HR PRN PRN Reason: SOB/WHEEZING Aspirin (Aspirin 81 Mg Chew Tab*) 81 mg PO QAM [facility] Atorvastatin Calcium (Lipitor*) 10 mg PO DAILY [facility] Cetirizine HCl (Zyrtec*) 10 mg PO QAM [facility] Cholecalciferol (Vitamin D Tab*) 2,000 units PO QAM [facility] Cyanocobalamin (Vitamin B12 Tab*) 500 mcg PO QAM [facility] Diltiazem HCl (Cardizem Cd Cap*) 120 mg PO DAILY [facility]; Protocol Escitalopram Oxalate (Lexapro *) 10 mg PO QAM [facility] Heparin Sodium (Porcine) (Heparin Vial(*)) 5,000 units SUBCUT Q8HR [facility] Sodium Chloride (Ns 0.9% 1000 Ml) 1,000 mls @ 75 mls/hr IV PER RATE [facility] Last Admin: 11/29/19 22:08 Dose: 75 mls/hr Levothyroxine Sodium (Synthroid Tab*) 50 mcg PO QAM@0600 [facility] Last Admin: 11/30/19 05:30 Dose: 50 mcg Lisinopril (Prinivil Tab*) 20 mg PO DAILY [facility] Lorazepam (Ativan Tab(*)) 2 mg PO DAILY PRN PRN Reason: ANXIETY Magnesium Oxide (Magox 400 Tab*) 400 mg PO BID [facility] Last Admin: 11/29/19 23:37 Dose: 400 mg Metoclopramide HCl (Reglan Iv*) 5 mg IV Q12H PRN PRN Reason: NAUSEA Last Admin: 11/29/19 23:52 Dose: 5 mg Mometasone Furoate/Formoterol Fumar (Dulera 100/5 Mdi*) 2 puff INH BID [facility] Last Admin: 11/30/19 10:07 Dose: Not Given Montelukast Sodium (Singulair Tab*) 10 mg PO QAM [facility] Nortriptyline HCl (Pamelor Cap*) 25 mg PO BEDTIME [facility] Last Admin: 11/29/19 23:37 Dose: 25 mg Ondansetron HCl (Zofran Inj*) 4 mg IV Q4H PRN PRN Reason: NAUSEA/VOMITING Last Admin: 11/30/19 05:33 Dose: 4 mg Ondansetron HCl (Zofran Tab*) 4 mg PO Q6H PRN PRN Reason: NAUSEA/VOMITING Oxycodone/Acetaminophen (Percocet 5/325 Tab*) 1 tab PO BID PRN PRN Reason: PAIN - MODERATE Last Admin: 11/30/19 04:03 Dose: 1 tab Pantoprazole Sodium (Protonix Tab*) 40 mg PO QAM [facility] Ropinirole HCl (Requip Tab*) 1 mg PO BEDTIME [facility] Last Admin: 11/29/19 23:37 Dose: 1 mg Trimethoprim/Sulfamethoxazole (Bactrim Ss 400/80 Tab*) 1 tab PO DAILY PRN PRN Reason: urinary prophylaxis Vitamin E (Vitamin E Cap*) 1,000 units PO QAM [facility] Allergies: morphine Allergy (Severe, Verified 10/15/19 06:31) Difficulty Breathing Itchy and body tension and breathing difficulty Social History: Denied Alcohol, smoking. No IVDA. , lives with Family History: Negative for Dialysis, ESRD or Renal Transplant. Positive for HTN & DM Surgical History:Ventral Hernia repair, PDC, TDC 12-Point Review of System obtained: Constitutional: No fever no weight loss Eyes No blurry vision. No red eye CV: No SOB at rest or exertion, no chest pain no syncope or edema Respiratory: No SOB at rest no cough no wheezing G.I: no diarrhea no nausea no vomiting no pain no blood per rectum. Pain is a lot better no burning no obstruction symptoms Skin no rash Neurology No seizures or neurologic deficit Endocrine no diabetes, no heat or cold intolerance Hem/Lymphatic no bleeding no lymph nodes swelling Immune/Allergy no allergic reactions Musculoskeletal: No arthritis, no swelling Psych no anxiety no depression no hallucination Objective: Temp Pulse Resp BP Pulse Ox 98.6 F 62 18 132/58 100 11/30/19 07:30 11/30/19 07:30 11/30/19 08:00 11/30/19 07:30 11/30/19 07:30 10 Point multi system exam: Constitutional Alert Oriented x 3 HEENT: No Conjunctivitis Abdomen Soft Abdomen PDC clean exit site, wound with dressing over the surgery site. Heart: NSR, No LE Edema, No murmur Lungs: Clear to auscultation Extremities: No edema, no rash Skin no rash Neurology No deficit. CN intact Hem/Lymph: no palpable lymph nodes Musculoskeletal: No joint swelling Laboratory Reviewed Sodium 132 mmol/L (135-145) L 11/30/19 05:03 Potassium 5.6 mmol/L (3.5-5.0) H 11/30/19 05:03 BUN 41 mg/dL (6-24) H 11/30/19 05:03 Creatinine 9.63 mg/dL (0.51-0.95) H 11/30/19 05:03 Calcium 7.9 mg/dL (8.6-10.3) L 11/30/19 05:03 AST 13 U/L (13-39) 11/29/19 16:53 ALT 6 U/L (7-52) L 11/29/19 16:53 Assessment and Plan: Off of PD Switched to HD HD today via Rt IJ TDC, and Ok to be discharged to HD MWF from tomorrow She was informed about lab/radiology results & prognosis. All questions were answered. She was made part of the treatment plan. Case discussed with Dr. Lopez
--- NOTE | 2019-11-30 11:22 | PN ---
Progress Note - Progress Note Date of Service: 11/30/19 Note: Inpatient Acute Dialysis Note Performed by Dr. Zofia Medina, [facility] Nephrology 11/30/2019 I had the pleasure seeing her today on HD for ESRD She was switched to HD s/p Hernia repair Seen and examined on HD. HD Routine: MWF HD Duration: 3.0 Hr UF Goal: 0.5 L/Rx Vitals: BP: 100-110/60 HR: 75/m Blood Flow: 400 cc/min Dialysate Flow: 600 cc/min Bath: K: 2K Ca: 2.5Ca Na: 138 Hco3: 35 Temp: 36 C Dialyzer: Revaclear 300 Access: New Rt IJ TDC No Access Related Issues Meds with HD: None Tolerates HD well. No Intradialytic Hypotension.
[2019-11-30] MEDS: Magnesium Oxide TAB* 400 MG PO SCH (12:42)
--- NOTE | 2019-11-30 15:51 | DS ---
Discharge Summary Surgeon:Jessica MCGILL Admit Date: 11/29/2019 Discharge Date: Admission DX: Incarcerated Umbilical Hernia/ESRD Discharge DX:Incarcerated Umbilical Hernia/ESRD Condition at Discharge:Stable Date of D/C PEX: Physical Exam: General: Patient is lying in bed in NAD Neck: Slight erythema surrounding the tunneled catheter. Moderate tenderness to palpation. Dressing c/d/i. CV: RRR, no murmurs, rubs or gallops Resp: Crackles throughout the mid-lower lung monsivais bilaterally Abdomen: Soft, nondistended. Positive normoactive bowel sounds. Slight tenderness surrounding the incisional site. Moderate tenderness to deep palpation of the RUQ. Abdominal dressings c/d/i. MSK: No erythema or swelling to the LEs bilaterally. Procedures Performed: - Operative Report Date of Operation: 11/29/19 Note: Pre-OP Diagnoses: ventral hernia, ESRD Post-op Diagnosis: same Procedure: placement of tunneled hemodialysis catheter, repair of ventral hernia with mesh Surgeon: Jessica Asst: Boubacar Anethesia: GETA EBL: 100cc IVF: minimal Specimen: hernia sac Drains: catheter placed via RIJV Hospital Course: Patient admitted through the ED for an incarcerated Umbilcal Hernia, was on Peritoneal Dialysis. Recent AV fistula for Hemodialysis not yet mature. Patient was taken to the OR for repair of the hernia and placement of a tunneled catheter for dialysis while awaiting the graft to mature. Tolerated procedure well, transferred to the [facility] for post op care. POD 1 patient was comfortable, had dialysis in the AM and returned to the floor. Passing flatus, tolerating diet, wishing to go home. Discharge instructions were given to the patient regarding Diet, Medications, dresind care, Activity, and post operative Follow up with Dr Lopez scheduled, new dialysis schedule was arranged. All Questions were answered. Discharged Home in Stable Condition on 11/30/2019
[2019-11-30] MEDS ORDERED: Heparin VIAL(*) 5000 UNITS/ML VIAL (FIVE THOUSAND) SUBCUT SCH (22:00)
== END 2019-11-30 14:30 | disposition home or self-care (01) | DRG 353 ==
LOC: ED 10:52 → OR 16:49 → SSU 20:08
PROVIDERS: ADMIT Surgery; ATTEND Surgery
PROC: 0JH63XZ Insertion of Tunneled Vascular Access Device into Chest Subcutaneous Tissue and Fascia, Percutaneous Approach (ICD-10-PCS; 2019-11-29)
PROC: 02HV33Z Insertion of Infusion Device into Superior Vena Cava, Percutaneous Approach (ICD-10-PCS; 2019-11-29)
PROC: 0WUF0JZ Supplement Abdominal Wall with Synthetic Substitute, Open Approach (ICD-10-PCS; principal; 2019-11-29 16:00)
PROC: 3E1M39Z Irrigation of Peritoneal Cavity using Dialysate, Percutaneous Approach (ICD-10-PCS; 2019-11-30)
DX: K43.6 Other and unspecified ventral hernia with obstruction, without gangrene (principal); N18.6 End stage renal disease; I12.0 Hypertensive chronic kidney disease with stage 5 chronic kidney disease or end stage renal disease; E03.9 Hypothyroidism, unspecified; J45.909 Unspecified asthma, uncomplicated; K21.9 Gastro-esophageal reflux disease without esophagitis; G43.909 Migraine, unspecified, not intractable, without status migrainosus; F41.0 Panic disorder [episodic paroxysmal anxiety]; E78.5 Hyperlipidemia, unspecified; Z87.440 Personal history of urinary (tract) infections; Z87.442 Personal history of urinary calculi; Z86.73 Personal history of transient ischemic attack (TIA), and cerebral infarction without residual deficits; Z87.891 Personal history of nicotine dependence; Z99.2 Dependence on renal dialysis; Z88.5 Allergy status to narcotic agent
CPT/HCPCS: 36415; 74019; 74176; 76000; 76705; 80048; 80053; 85014; 85018; 85025; 88302; 99284; A9270-GY; J0690; J1170; J1642; J1644; J2250; J2405; J2704; J2710; J2765; J3010; J3490

== ENCOUNTER 2019-12-15 18:32 | Emergency (ER) | payer MEDICARE, MEDICAID ==
--- OUTSIDE RECORDS SUMMARY | 2019-12-15 18:54 | XMS REPORT | Continuity of Care Document ---
:1975 External Reference #:[id number] Author Name Regi Garnica RN [place] [facility] Address [address] [place] [address] Problems Active Problems Provider Date Mixed hyperlipidemia Eli Oliveira MD Onset: 05/23/2015 Essential hypertension Regi Garnica RN [place] [facility] Onset: 09/07/2015 Chronic kidney disease Prashanth Davidson PA Onset: 10/15/2016 Chronic obstructive lung disease Prashanth Davidosn PA Onset: 10/15/2016 Smoker Prashanth Davidson PA Onset: 10/15/2016 Polycystic kidney disease, adult type Prashanth Davidson PA Onset: 06/08/2018 Hypothyroidism Onset: 08/04/2019 Social History Type Date Description Comments Sex Unknown Cigarette Use Quit - Age 40 Tobacco Use Start: Unknown End: Patient is a former smoker Quit at age 40. 20yr Unknown at 0.5pk/day Smoking Status Reviewed: 12/15/19 Patient is a former smoker Quit at age 40. 20yr at 0.5pk/day Allergies, Adverse Reactions, Alerts Description No Known Drug Allergies Medications Active Medications SIG Qnty Indications Ordering Date Provider Ciprofloxacin HCL 1 by mouth twice a 10tabs Regi Garnica 12/15/2019 500mg day x 5 days ( took HANSEL Tang [place] [facility] Tablets 2 days already) Diltiazem HCL ER 1 by mouth every 30caps I10 Regi Garnica 10/20/2019 Coated Beads day HANSEL Tang [place] 120mg Caps ER 24HR Sulfamethoxazole-Trim 1 by mouth q day 90tabs N39.0 Roxanne 10/18/2019 ethoprim for urinary Eli Armijo MD 400-80mg prophylaxis Tablets Levothyroxine Sodium Take One Tablet By 90tabs Regi Garnica 09/21/2019 Mouth Every Day C, RN [place] 50mcg Tablets Tramadol HCL 1 tab by mouth 40tabs Regi Garnica 07/28/2019 50mg every 6 hours as C, RN [place] Tablets needed for pain, max dose 4 daily Escitalopram Oxalate 1 by mouth every 90tabs F41.1 Regi Garnica 2018 day C, RN [place] 20mg Tablets F33.9 Lorazepam take 1-2 tablets by 30tabs F41.1 Regi Garnica, 07/07/2019 1mg Tablets mouth once a day as RN [place] needed for anxiety Proair HFA 2 p three times a 25.5gm J45.40 Regi Garnica, 08/20/2018 108(90Base) day as needed RN [place] mcg/Act Aerosol J44.9 Breo Ellipta Inhale One puff 60units J45.40 [facility] 100-25mcg/Inh By Mouth Every M, Aerosol Day J44.9 Nystatin ~5ml by mouth 4 500ml B37.0 [facility] 06/08/2018 680702Hqzw/ML times daily for MMD Suspension 3weeks. retain in mouth as long as possible. continue treatment 3days after all s/s resolved Fluticasone Propionate [place] Two Sprays In 16units [facility] 03/31 Each Nostril Every MMD 50mcg/Act Suspension Day Montelukast Sodium Take One Tablet By 90tabs J45.20 Regi Garnica 2017 10mg Mouth Every Day [place], RN [place] Tablets J30.9 Lisinopril 1 by mouth every I10 [facility] 03/10/2018 40mg Tablets morning MD Zofia Clonidine HCL 1 by mouth tid 60tabs I10 [facility] 03/10/2018 0.1mg Tablets MD Zofia Nortriptyline HCL Take One Capsule 30caps F33.9 [facility] 2017 25mg By Mouth AT MD Zofia Capsules Bedtime Simvastatin Take One Tablet 30tabs E78.2 [facility] 03/10/2018 20mg Tablets By Mouth Every M, Day Before Bed Ondansetron HCL one tab as needed 30tabs R11.10 Regi Garnica, 2017 4mg Tablets every 8 hours for RN [place] [facility] nausea KP Aspirin 1 by mouth every 30tabs Regi Garnica, 07/24/[address] day Per Neuro RN [facility] Magnesium Oxide take one tablet 180tabs N18.4 Regi Garnica, 2016 400(241.3mg) by mouth twice a RN [place] mg Tablets day N18.5 Baclofen Take One Tablet By 60tabs G89.4 Regi Garnica, 05/23/2017 10mg Tablets Mouth Twice A Day RN [place] as Needed For Muscle Spasms Flintstones Plus Iron 1 tablet twice N18.5 Eli Oliveira 03/03/2017 daily MD Zofia Chewtabs Albuterol Sulfate 1 vial in neb. q4hr 750ml J44.9 Regi Garnica, 01/02 as needed RN [place] (2.5mg/3ML) 0.083% Nebulizer Cetirizine HCL take one tablet by 30tabs J45.40 Eli Oliveira 2016 10mg Tablets mouth every day for MD Zofia allergy symptoms J30.9 Ipratropium Use 1 Vial In 120units J45.40 Regi Garnica 09/11/2016 [place]/Albuterol Sulfate Nebulizer 4 Times C, RN [place] Daily 0.5-2.5(3)mg/3ML Solution J44.9 Furosemide Take One Tablet By 90tabs N18.5 Eli Oliveira 10/09/2015 20mg Tablets Mouth Every Day MD Zofia Oxycodone-Acetaminophen 1 tablet by mouth 60tabs R51 Regi Garnica, twice a day as RN [place] 5-325mg Tablets needed for pain G89.4 Meclizine HCL 1/2-1 by mouth 30tabs 386.11 Regi Garnica, 02/15/2015 25mg three times a day RN [place] Tablets as needed Omeprazole take one capsule by 30caps K21.9 Regi Garnica, 04/16/2012 40mg Capsules mouth every day RN [place] R10.13 History Medications Ciprofloxacin HCL 1 by mouth twice a 20tabs N39.0 [place], 11/12/2019 - 500mg day for 10days Eli Armijo MD 11/22/2019 Tablets Ciprofloxacin HCL 1 by mouth twice a 30tabs N39.0 [place], 10/18/2019 - 500mg day for 15days Eli Armijo MD 11/02/2019 Tablets Fluconazole 1 by mouth x1 2tabs N39.0 [place], 10/18/2019 - 150mg middle and after Eli Armijo MD 11/01/2019 Tablets antibiotics course Fluconazole 1 by mouth x1 2tabs [place], 09/24/2019 - 150mg middle and after Eli Armijo MD 10/01/2019 Tablets antibiotics course Ciprofloxacin HCL 1 by mouth twice a 30tabs [place], 09/20/2019 - 500mg day for 15days Eli Armijo MD 10/05/2019 Tablets Medications Administered in Office Medication SIG Qnty Indications Ordering Provider Date Regi Allan RN 01/14/2012 Injection [facility] PPD Nurses Schedule Opal 11/17/2009 Injection PPD [...] U-Flu Given 08/03/2019 Influenza (Non Billable) Unspecified 32137 Given 08/13/2018 MMR Virus Immunization [id number] 66665 Given 04/22/2018 Prevnar [address] OBANDO Conjugate Vaccine OFFICE 91872 Given 01/14/2012 Tdap (Adacel) Ages 7 And [id number] Above Only 91240 Given 09/14/2007 Afluria Or Fluvirin Flu Vac Intramuscular 39077 Given 09/14/2007 Afluria Or Fluvirin Flu Vac [id number] Intramuscular 69812 Given 10/07/2006 Afluria Or Fluvirin Flu Vac [id number], Intramuscular 72014 Given 08/21/2005 Afluria Or Fluvirin Flu Vac [id number] Intramuscular 90097 Given 10/03/2004 Afluria Or Fluvirin Flu Vac Intramuscular 53250 Refused 07/07/2019 Influenza Vac, Quadrivalent, Split, 0.5mL Dosage, Im Use 54464 Refused 11/08/2016 Influenza Vac, Quadrivalent, Split, 0.5mL Dosage, Im Use Vital Signs Date Vital Result Comment 12/15/2019 2:10pm Body Temperature 97.4 F Weight 235.00 lb Heart Rate 83 /min BP Systolic 148 mmHg BP Diastolic 95 mmHg 11/12/2019 9:43am Weight 230.00 lb Heart Rate 77 /min BP Systolic 132 mmHg BP Diastolic 73 mmHg Results Test Acquired Date Facility Test Result H/L Range Note Laboratory test 12/15/2019 [facility] TSH <pending> finding Thyroid Auto 12/15/2019 [facility] Thyroid Peroxidase <pending> Antibodies Antibody-fcmg Thyroglobulin AB <pending> Laboratory test finding 12/15/2019 [facility] Free T4 <pending> CBC with Auto Diff-fcmg 12/15/2019 [facility] WBC 7.1 K/uL 4.1-11.0 1 RBC 5.41 M/uL High 4.00-5.40 2 Hemoglobin 17.7 gm/dL High 12.0-16.0 3 Hematocrit 53.2 % High 36.0-47.0 4 MCV 98.4 fL High 80.0-95.0 5 MCH 32.8 pg High 27.0-32.0 6 MCHC 33.3 g/dL 32.0-36.0 7 RDW 16.9 % High 10.5-14.5 8 PLT Count 143 K/ul Low 150-400 9 MPV 8.9 FL 7.1-10.7 Neutrophil 64.5 % 35.0-75.0 10 Lymphocyte 25.2 % 16.0-52.0 11 Monocyte 7.3 % 0.0-8.0 12 Eosinophil 2.5 % 0.0-5.0 Basophil 0.5 % 0.0-4.0 Abs Neutrophils 4.6 K/uL 1.8-7.7 13 Abs Lymphocytes 1.8 K/uL 1.2-4.8 14 Abs Monocytes 0.5 K/uL 0.0-0.8 15 Abs Eosinophils 0.2 K/uL 0.0-0.5 16 Abs Basophils 0.0 K/uL 0.0-0.2 17 Laboratory test 12/15/2019 [facility] <pending> finding Chlamydia & GC, 11/12/2019 [facility] Chlamydia NOT DETECTED Not Detected Dna-FCMG GC NOT DETECTED Not Detected Laboratory test 11/12/2019 [facility] Microbiology res 18 finding <SEE NOTE> Laboratory test 10/18/2019 [facility] Microbiology res 19 finding <SEE NOTE> Electrolytes 10/15/2019 [facility] Sodium 134 mmol/L Low 135- 1 45 Chloride 101 mmol/L Normal 101-111 Co2 Carbon Dioxide 23 mmol/L Normal 22-32 Potassium 5.5 mmol/L High 3.5-5.0 Anion Gap 10 mmol/L Normal 2-11 Laboratory test 10/15/2019 [facility] HCG 1.82 mIU/mL 20 finding Laboratory test 09/20/2019 [facility] Microbiology res Abnormal 21 finding <SEE NOTE> Laboratory test 09/20/2019 [facility] TSH 45.59 uIU/mL High 0.35 finding -4.9 4 Laboratory test 09/08/2019 [facility] Microbiology res 22 finding <SEE NOTE> Manual 08/11/2019 [facility] Neutrophils [...] 7.1-10.7 WBC 23.2 K/uL Critical high 4.1-11.0 23 Arterial Blood Gas 08/02/2019 [facility] PH Arterial 7.41 Normal 7.35-7.45 Pco2 Arterial 27 mmHg Low 35-45 Po2 Arterial 181 mmHg High 80-100 O2 Saturation Arterial 99.9 % High 94.0-98.0 Base Excess Arterial -6.0 mmol/L Low -2.0-2.0 24 Hco3 Arterial 20.2 mmol/L Normal 19-31 Inr/Protime 08/02/2019 [facility] Inr 1.27 High 0.82-1.09 25 Laboratory test 08/02/2019 [facility] Activated 36.0 seconds Normal 26.0-38.0 finding Partial Thrombo Time B Type Natriuretic Peptide 73 pg/mL <=100 Urinalysis Profile 08/02/2019 [facility] Urine Color Red Abnormal Urine Appearance Turbid Urine Specific [place] 1.020 Normal 1.010-1.030 Urine pH 6.0 Normal [...] Urine Bacteria Absent Absent Laboratory test 08/02/2019 [facility] Lactic Acid 1.1 mmol/L Normal 0.5-2.0 26 finding Comp Metabolic 08/02/2019 [facility] Sodium 131 mmol/L Low 135 -145 Panel [...] Egfr Non- 3.7 >60 Egfr 4.5 >60 27 Laboratory test 08/02/2019 [facility] Magnesium 2.3 mg/dL Normal 1.9-2.7 finding C Reactive Protein 407.25 mg/L High <8.01 Troponin I 0.01 ng/mL <0.04 28 TSH (Thyroid Stimulating Horm) 22.04 mcIU/mL High 0.34-5.60 CBC Auto Diff 08/02/2019 [facility] White Blood 10.1 10^3/uL Normal 3.5-10.8 Count [...] Cells % 0.0 Urine Culture And 08/02/2019 [facility] Urine Culture SEE RESULT 29 Sensitivities BELOW CBC Auto Diff 07/27/2019 [facility] White Blood 10.7 10^3/uL Normal 3.5-10 Count [...] Cells % 0.2 Comp Metabolic Panel 07/27/2019 [facility] Sodium 137 mmol/L Normal 135-145 Potassium 4.6 [...] Egfr Non- 5.2 >60 Egfr 6.2 >60 30 Urinalysis 07/27/2019 [facility] Urine White 3+(>20/hpf) Abnormal Absent Profile Blood Cell Urine Red Blood Cell 3+(>10/hpf) Abnormal Absent Urine Bacteria Absent Absent Urine Color Red Abnormal Urine Appearance Turbid Urine Specific [place] 1.013 Normal 1.010-1.030 Urine pH TNP 5-9 31 Urine Urobilinogen TNP Negative 32 Urine Ketones TNP Negative 33 Urine Protein TNP Negative 34 Urine Leukocytes TNP Negative 35 Urine Blood TNP Negative 36 * TNP Negative 37 Urine Nitrite TNP Negative 38 Urine Bilirubin TNP Negative 39 Urine Glucose TNP Negative 40 Urine Culture And 07/27/2019 [facility] Urine Culture SEE RESULT 41 Sensitivities BELOW 1 Updated Reference Range 09/2019 2 Updated Reference Range 09/2019 3 Updated Reference Range 09/2019 4 Updated Reference Range 09/2019 5 Updated Reference Range 09/2019 6 Updated Reference Range 09/2019 7 Updated Reference range 09/2019 8 Updated Reference range 09/2019 9 Updated Reference Range 09/2019 10 Updated Reference Range 09/2019 11 Updated Reference Range 09/2019 12 Updated Reference Range 09/2019 13 Updated Reference Range 09/2019 14 Updated Reference Range 09/2019 15 Updated Reference Range 09/2019 16 Updated Reference Range 09/2019 17 Updated Reference Range 09/2019 18 Microbiology results SOURCE Clean Catch Midstream FINAL RESULT No growth 19 Microbiology results SOURCE Clean Catch Midstream FINAL RESULT No growth 20 <5.0 Negative 5.0 - 25.0 Indeterminate (Repeat testing recommended after 72 hours) >25.0 Positive Perimenopausal women can display HCG levels of up to 20 mIU/mL 21 Microbiology results SOURCE Clean Catch Midstream COLONY [...] TOBRAMYCIN <=4 S TRIMETHOPRIM/SULFAMETHOXAZ <=2/38 S S=Sensitive;I=Indeterminate;R=Resistant 22 Microbiology results SOURCE Clean Catch Midstream FINAL RESULT <10,000 CFU/ML Mixed urogenital zac consistent with contamination. Request fresh specimen if indicated. 23 Result amended from (Not Reported) (08/11/2019 9:17 PM) to (23.2) (08/11/2019 9:17 PM) by LETTY. 24 Reference ranges based on room air. 25 Standard intensity warfarin therapeutic range: 2.0-3.0 High intensity warfarin therapeutic range: 2.5-3.5 26 [facility] Severe Sepsis and Septic Shock Management Bundle Measure requires all lactic acids initially measuring >2.0 mmol/L be repeated. 27 Because ethnic data is not always readily [...] 15-29 5 Kidney failure <15 (or dialysis) 28 Troponin-I testing on Plasma Separator Tubes (PST) has a known false positive rate of 0.20-0.40%. All positive troponins reflex immediately to secondary confirmatory testing. Using the [employer] DxI 800 Access Immunoassay systems, the 99th percentile upper reference limit was demonstrated to be < 0.03 ng/mL. 29 SEE RESULT BELOW Name: BUFFY TONEY : [address]: Partha Moreno MD Acct: [id number] Unit: [id number] AGE: 43 Location: [place] [address] Re08/02/19 SEX: F Status: ADM IN SPEC: [id number] ES: 08/02/[address]: Arnold Wang MD REQ: [id number] RECD: 08/02/19 STATUS: PATRICK JOHNSON DR: [facility] Regi Gonzalez MD _ SOURCE: URINE SPDESC: ORDERED: Urine Culture Procedure Result Reported Site Urine Culture Final 08/04/19- 927 ML Organism 1 ESCHERICHIA COLI [place] Count >100,000 (Many) CFU/ML 1. ESCHERICHIA COLI [...] . END OF REPORT DEPARTMENT OF PATHOLOGY, [address] [place] [address] Graham Ambrocio M.D. Director [facility] # [id number] 30 Because ethnic data is not always readily [...] 15-29 5 Kidney failure <15 (or dialysis) 31 Unable to evaluate urinalysis dipstick results due to interfering color. 32 Unable to evaluate urinalysis dipstick results due to interfering color. 33 Unable to evaluate urinalysis dipstick results due to interfering color. 34 Unable to evaluate urinalysis dipstick results due to interfering color. 35 Unable to evaluate urinalysis dipstick results due to interfering color. 36 Unable to evaluate urinalysis dipstick results due to interfering color. 37 Unable to evaluate urinalysis dipstick results due to interfering color. 38 Unable to evaluate urinalysis dipstick results due to interfering color. 39 Unable to evaluate urinalysis dipstick results due to interfering color. 40 Unable to evaluate urinalysis dipstick results due to interfering color. 41 SEE RESULT BELOW Name: BUFFY TONEY : [address]: Richardson Bautista MD Acct: [id number] Unit: [id number] AGE: 43 Location: ED Re07/27/19 SEX: F Status: DEP ER SPEC: [id number] ES: 07/27/19-[address] [facility] [address]: Richardson Bautista MD REQ: [id number] RECD: 07/27/19 STATUS: PATRICK JOHNSON DR: Regi Garnica PATIENT RESOURCE COORDINATOR _ SOURCE: URINE SPDESC: ORDERED: Urine Culture Procedure Result Reported Site Urine Culture Final 07/29/19- 0752 ML Organism 1 ESCHERICHIA COLI [place] Count >100,000 (Many) CFU/ML 1. ESCHERICHIA COLI [...] . END OF REPORT DEPARTMENT OF PATHOLOGY, [address] [place] [address] Graham Ambrocio M.D. Director [facility] # [id number] Procedures Date Code Description Status 08/14/2018 [id number] Mammogram Completed Medical Devices Description No Information Available Encounters Type Date Location Provider Dx Diagnosis Office Visit 11/12/2019 9:20a Prashanth Nguyen PA N39.0 Urinary tract infection, site not specified R31.9 Hematuria, unspecified N18.5 Chronic kidney disease, stage 5 Z99.2 Dependence on renal dialysis Office Visit 10/18/2019 2:20p Prashanth Nguyen PA [...] 2:40p Regi Manuel, E66.9 Obesity, unspecified RN [facility] D72.829 Elevated white blood cell count, unspecified N18.4 Chronic kidney disease, stage 4 (severe) Z68.38 Body mass index (BMI) 38.0-38.9, adult Office Visit 07/07/2019 2:40p Regi Manuel, Z00.00 Encntr for general RN MS [facility] adult medical exam w/o abnormal findings Z13.31 Encounter for screening for depression I10 Essential (primary) hypertension F41.1 Generalized anxiety disorder Z23 Encounter for immunization M25.572 Pain in LEFT ankle and joints of LEFT foot E78.2 Mixed hyperlipidemia Z68.37 Body mass index (BMI) 37.0-37.9, adult Assessments Date Code Description Provider 12/15/2019 R31.9 Hematuria, unspecified Regi Garnica RN [facility] 12/15/2019 E03.9 Hypothyroidism, unspecified Regi Garnica, RN [facility] 12/15/2019 E78.2 Mixed hyperlipidemia Regi Garnica, RN [facility] 11/12/2019 N39.0 Urinary tract infection, site not Prashanth Davidson PA specified 11/12/2019 R31.9 Hematuria, unspecified Prashanth Davidson PA 11/12/2019 N18.5 Chronic kidney disease, stage 5 Prashanth Davidson PA 11/12/2019 Z99.2 Dependence on renal dialysis Prashanth Davidson PA 11/12/2019 N39.0 Urinary tract infection, site not [facility] specified 11/12/2019 N39.0 Urinary tract infection, site not [facility] specified 10/18/2019 N39.0 Urinary tract infection, site not [...] unspecified [facility] 09/20/2019 Z79.899 Other manager long term care (current) drug [facility] therapy 09/20/2019 [...] [facility] 08/11/2019 E66.9 Obesity, unspecified Regi Garnica, RN [facility] 08/11/2019 D72.829 Elevated white blood cell count, Regi Garnica, RN [place] [facility] unspecified 08/11/2019 N18.4 Chronic kidney disease, stage 4 DanikaRegi nunez RN MS [facility] (severe) 08/11/2019 Z68.38 Body mass index (BMI) 38.0-38.9, Regi Garnica RN MS [facility] adult 08/11/2019 D72.829 Elevated white blood cell count, [facility] unspecified 08/11/2019 D72.829 Elevated white blood cell count, [facility] unspecified 07/07/2019 Z00.00 Encounter for general adult medical Regi Garnica RN [facility] examination without abnormal findings 07/07/2019 Z13.31 Encounter for screening for Regi Garnica RN [facility] depression 07/07/2019 I10 Essential (primary) hypertension Regi Garnica RN [facility] 07/07/2019 F41.1 Generalized anxiety disorder Regi Garnica RN [place] 07/07/2019 Z23 Encounter for immunization Regi Garnica RN [place] 07/07/2019 M25.572 Pain in LEFT ankle and joints of LEFT Regi Garnica RN [facility] foot 07/07/2019 E78.2 Mixed hyperlipidemia Regi Garnica RN [facility] 07/07/2019 Z68.37 Body mass index (BMI) 37.0-37.9, Regi Garnica RN [place] [facility] adult Plan of Treatment 12/15/2019 - Regi Garnica RN MS FNPR31.9 Hematuria, unspecifiedComments: TO ER FOR FEVER OR CHILLS OR IF NOT ANY BETTER IN 6-12 HOURSCONTINUE CIPRO. SENT OUT URINE CULTURE WILL ADVISE OF IJLRLKGN69.9 Hypothyroidism, unspecifiedComments:[facility] LDCARGHTCBLX83.2 Mixed hyperlipidemiaAllNew Medication:Ciprofloxacin HCL 500 mg - 1 by mouth twice a day x 5 days ( took 2 days already) Functional Status Description No Information Available Mental Status Description No Information Available Referrals Description No Information Available
--- OUTSIDE RECORDS SUMMARY | 2019-12-15 18:54 | XMS REPORT | Continuity of Care Document ---
:1975 External Reference #:[id number] Author Name Abraham Barajas (transmitted by agent of provider Dariela Flores) Address [address] [place] [address] Care Team Providers Name Role Phone Shakeel Gonzalez M.D. 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 Cetirizine HCL Prashanth Davidson PA 10mg Tablets Omeprazole Take One Capsule By Unknown 40mg Capsules DR Mouth Every Day [place] Arthritis Pain Take One Tablet By Unknown 650mg Tablets ER Mouth Three Times A Day For Arthritis Pain Furosemide Prashanth Davidson PA 20mg Tablets Ipratropium [place]/Albuterol Regi Garnica, Sulfate CARTOGRAPHY/MAPPING TECHNICIAN 0.5-2.5(3)mg/3ML Solution Escitalopram Oxalate Take One Tablet By Unknown 10mg Tablets Mouth Every Day Baclofen Take One Tablet By Unknown 10mg Tablets Mouth Twice A Day as Needed For Muscle Spasms Immunizations CPT Code Status Date Vaccine Lot # [id number] Given 08/03/2019 Influenza Vaccine 60943-999-80 [id number] Given 08/03/2018 Pneumococcal Vaccine 92772 Given 08/03/2018 Influenza Vaccine [id number] Refused 02/26/2018 Influenza Vaccine [id number] Vital Signs Date Vital Result Comment 2019 10:43am Height 67 inches 5'7" Weight 230.00 lb BP Systolic 140 mmHg BP Diastolic 100 mmHg BMI (Body Mass Index) 36.0 kg/m2 Heart Rate 95 /min Respiratory Rate 18 /min Pain Level 0 11/04/2019 1:43pm Height 67 inches 5'7" Weight 223.00 lb BP Systolic 131 mmHg BP Diastolic 80 mmHg BMI (Body Mass Index) 34.9 kg/m2 Heart Rate 89 /min Respiratory Rate 18 /min Results Test Acquired Date Facility Test Result H/L Range Note Electrolytes 10/15/2019 [facility] ([facility] [place] Sodium 134 mmol/L Low 135-145 [address] [place] [address] [phone] Chloride 101 mmol/L Normal 101-111 Co2 Carbon Dioxide 23 mmol/L Normal 22-32 Potassium 5.5 mmol/L High 3.5-5.0 Anion Gap 10 mmol/L Normal 2-11 Laboratory test 10/15/2019 [facility] ([facility] [place] HCG 1.82 mIU/mL [address] [place] [address] [phone] 1 <5.0 Negative 5.0 - 25.0 Indeterminate (Repeat testing recommended after 72 hours) >25.0 Positive Perimenopausal women can display HCG levels of up to 20 mIU/mL Procedures Date Code Description Status 2019 18493 Duplex Scan Extremity Veins, Unilateral Or Limited Study Completed 10/15/2019 89077 Anastomosis Arteriovenous Direct Any Site Completed 09/16/2019 97269 Duplex Scan Extremity Veins, Unilateral Or Limited Study Completed 06/25/2019 62031 Dialysis Circuit, Intro [place]/Cath W/ Diagnostic Completed Angiography 06/25/2019 73435 Thrombectomy Av Fistula W/Out Revision; Auto/Nonauto Completed Dialysis GFT 06/25/2019 99387 Anastomosis Arteriovenous Direct Any Site Completed 06/18/2019 89907 Dialysis Circuit W/ Transcatheter Placement Intravascular Completed Stent(S 06/18/2019 31664 Revision W/Thrombectomy Av Fistula Auto/Nonauto Dialysis Completed Graft 06/14/2019 53680 Duplex Scan Extremity Veins, Unilateral Or Limited Study Completed Medical Devices Description No Information Available Encounters Type Date Location Provider Dx Diagnosis Office Visit 2019 10:30a [facility] Barajas, Abraham N18.4 Chronic kidney disease, stage 4 (severe) Q61.2 Polycystic kidney, adult type Z99.2 Dependence on renal dialysis Z68.36 Body mass index (BMI) 36.0-36.9, adult Office Visit 09/16/2019 10:45a [facility] BarajasAbraham Q61.2 Polycystic kidney, adult type Z99.2 Dependence on renal dialysis Z01.818 Encounter for other preprocedural examination T82.510A Breakdown of surgically created Av fistula, init Z68.34 Body mass index (BMI) 34.0-34.9, adult Office Visit 06/14/2019 1:00p [facility] [place] T82.858A Stenosis of other vascular prosth dev/grft, init L76.32 Postproc hematoma of skin, subcu following other procedure N18.4 Chronic kidney disease, stage 4 (severe) Z99.2 Dependence on renal dialysis Z68.36 Body mass index (BMI) 36.0-36.9, adult Assessments Date Code Description Provider 2019 N18.4 Chronic kidney disease, stage 4 (severe) Barajas, Abraham 2019 Q61.2 Polycystic kidney, adult type Barajas, Abraham 2019 Z99.2 Dependence on renal dialysis Barajas, Abraham 2019 Z68.36 Body mass index (BMI) 36.0-36.9, adult Barajas, Abraham 11/04/2019 T82.510D Breakdown (mechanical) of surgically created Barajas, Abraham arteriovenous fistula, subsequent encounter 11/04/2019 Q61.2 Polycystic kidney, adult type Barajas, Abraham 11/04/2019 N18.4 Chronic kidney disease, stage 4 (severe) Barajas, Abraham 11/04/2019 Z79.01 manager budget (current) use of anticoagulants Barajas, Abraham 11/04/2019 Z99.2 Dependence on renal dialysis Barajas, Abraham 11/04/2019 Z68.34 Body mass index (BMI) 34.0-34.9, adult Barajas, Abraham 10/22/2019 T82.510A Breakdown (mechanical) of surgically created Barajas, Abraham arteriovenous fistula, initial encounter 10/22/2019 Q61.2 Polycystic kidney, adult type Barajas, Abraham 10/22/2019 N18.4 Chronic kidney disease, stage 4 (severe) Barajas, Abraham 10/22/2019 Z79.01 manager budget (current) use of anticoagulants Barajas, Abraham 10/22/2019 Z99.2 Dependence on renal dialysis Barajas, Abraham 10/22/2019 Z68.34 Body mass index (BMI) 34.0-34.9, adult Barajas, Abraham 10/15/2019 Z79.01 manager budget (current) use of anticoagulants Barajas, [facility] 10/15/2019 T82.510A Breakdown (mechanical) of surgically created Barajas, Abraham arteriovenous fistula, initial encounter 10/15/2019 Q61.2 Polycystic kidney, adult type Barajas, Abraham 10/15/2019 N18.4 Chronic kidney disease, stage 4 (severe) Barajas, Abraham 10/15/2019 Z99.2 Dependence on renal dialysis Barajas, Abraham 09/16/2019 Q61.2 Polycystic kidney, adult type Barajas, Abraham 09/16/2019 Z99.2 Dependence on renal dialysis Barajas, [facility] 09/16/2019 Z01.818 Encounter for other preprocedural examination Barajas, [facility] 09/16/2019 T82.510A Breakdown (mechanical) of surgically created [...] 06/14/2019 L76.32 Postprocedural hematoma of skin and Abraham Barajas subcutaneous tissue following other procedure 06/14/2019 N18.4 Chronic kidney disease, stage 4 (severe) Barajas, Abraham 06/14/2019 Z99.2 Dependence on renal dialysis Barajas, Abraham 06/14/2019 Z68.36 Body mass index (BMI) 36.0-36.9, adult Abraham Barajas Plan of Treatment No Information Available Functional Status Description No Information Available Mental Status Description No Information Available Referrals Description No Information Available
--- OUTSIDE RECORDS SUMMARY | 2019-12-15 18:54 | XMS REPORT | Continuity of Care Document ---
:1975 External Reference #:[id number] Author Name Marcos Lopez MD, FACS (transmitted by agent of provider Jonathan Carballo) Address [address] [place] [address] Care Team Providers Name Role Phone Regi Garnica, OILER BANDER - Family Care Team Information Wax Room Supervisor Problems Active Problems Provider Date Migraine with [...] Use Never Used Drugs Smoking Status Reviewed: 12/13/19 Patient is a former quit in 2013 smoker Exercise Type/Frequency Exercises rarely Allergies, Adverse Reactions, Alerts Active Allergies Reaction Severity Comments Date Morphine shortness of breath, tightness whole Severe 06/11/2019 body Inactive Allergies NKDA 10/31/2015 Medications Active Medications SIG Qnty Indications Ordering Date Provider Lisinopril 1 tab by mouth 90tabs Jamesammad Delia 10/21/2019 20mg Tablets daily at bedtime MD Adam B12 Fast Dissolve sl daily 90tabs Shakeel [...] as needed Unknown (2.5mg/3ML) 0.083% Nebulizer Ipratropium [place] as needed Unknown 0.02% Solution Ventolin HFA 2 puffs by mouth Unknown 108(90Base) four times a day mcg/Act Aerosol as needed Escitalopram Oxalate 1 by mouth every Unknown 10mg day Tablets Omeprazole 1 by mouth every Unknown 40mg Capsules day DR Montelukast Sodium 1 by mouth every Unknown 10mg day Tablets Calcitriol 1 by mouth every Unknown 0.25mcg day Capsules History Medications Cipro one by mouth daily 5tabs Carmella Ventura MD 10/08/2019 - Unknown 500mg Tablets for five days Medications Administered in Office Medication SIG Qnty [...] Available Vital Signs Date Vital Result Comment 12/13/2019 9:24am Heart Rate 78 /min Respiratory Rate 16 /min Body Temperature 97.6 F 12/06/2019 9:56am Heart Rate 78 /min BP Systolic Sitting 128 mmHg BP Diastolic Sitting 82 mmHg Respiratory Rate 16 /min Body Temperature 97.5 F Results Test Acquired Date Facility Test Result H/L Range Note Hemoglobin/He 11/29/2019 [facility] Hemoglobin 18.5 g/dL High 12.0-16.0 [address] [place] [address] [phone] Hematocrit 54 % High 35-47 Comp Metabolic Panel 11/29/2019 [facility] Sodium 133 mmol/L Low 135-145 [address] [place] [address] [phone] Chloride 103 mmol/L Normal 101-111 Co2 Carbon Dioxide 21 mmol/L Low 22-32 Calcium 7.9 mg/dL Low 8.6-10.3 Albumin 3.3 g/dL Normal 3.2-5.2 Total Bilirubin 0.30 mg/dL Normal 0.2-1.0 Potassium 5.8 mmol/L High 3.5-5.0 Anion Gap 9 mmol/L Normal 2-11 Glucose 73 mg/dL Normal 70-100 Blood Urea Nitrogen 38 mg/dL High 6-24 Creatinine 9.36 mg/dL High 0.51-0.95 BUN/Creatinine Ratio 4.1 Low 8-20 Total Protein 6.1 g/dL Low 6.4-8.9 Globulin 2.8 g/dL Normal 2-4 Albumin/Globulin Ratio 1.2 Normal 1-3 Alkaline Phosphatase 51 U/L Normal 34-104 Alt 6 U/L Low 7-52 Egfr Non- 4.6 >60 Egfr 5.5 >60 1 Ast 13 U/L Normal 13-39 Urinalysis Profile 10/08/2019 [facility] Urine Color Yellow [address] [place] [address] [phone] Urine Appearance Cloudy Urine Specific [place] 1.010 Normal 1.010-1.030 Urine pH 8.0 Normal [...] Present Abnormal Absent Urine Culture And 10/08/2019 [facility] Urine Culture SEE RESULT [address] [place] [address] [phone] Lipid Profile 08/20/2019 N2N/CCD Import Cholesterol 84 [...] 36.0 Platelet-CT 262 150 - 400 Neuts-Abs 08083.50 High 2000 - 8800 Lymphs-Abs 459.00 Low [...] 06/16/2019 N2N/CCD Import Age Of Patient 43 Chem I HD 06/16/2019 N2N/CCD Import Alk [...] 53 [place] Corrected 38.1 21 - 53 Calcium Corrected 06/16/2019 N2N/CCD Import Calcium Corrected 9.3 8.7 - 10.4 KRT/V Renal 06/16/2019 N2N/CCD Import KRT/V Renal N/A SPKT/V Total 06/16/2019 N2N/CCD Import SPKT/V Total N/A STDKRT/V Renal 06/16/2019 N2N/CCD Import STDKRT/V Renal N/A Ekdt/V Dialysis 06/16/2019 N2N/CCD Import Ekdt/V Dialysis N/A Gender 06/16/2019 N2N/CCD Import Gender F 0416 06/16/2019 N2N/CCD Import BUN 37 High 9 - 23 Creatinine 7.02 High 0.50 - 1.10 NPCR PD 0.67 Creat-PD 2.17 Urea-PD 22 Urea CLR Ur/Bsa 4.1 Low 64 - 99 Cre CLR Ur/Bsa 7 Low 75 - 115 Urea CLR Ur 4.7 Minuts Collctd-Ur 1440 Tot.Vol.-Urine 1250 Tot.Vol.-PDF 43174 Urea Gen Rate 7.9 Urea Nit Urine [...] KT/V Residual 1.19 KT/V Total PD 2.51 CBC With Autodiff 06/16/2019 N2N/CCD Import RBC [...] N/A Race 06/16/2019 N2N/CCD Import Race C 1 Because ethnic data is not always [...] 5 Kidney failure <15 (or dialysis) 2 no growth 3 SEE RESULT BELOW Name: BUFFY TONEY : [address]: Carmella Ventura MD Acct: [id number] Unit: [id number] AGE: 43 Location: [facility] Re10/08/19 SEX: F Status: REG REF SPEC: [id number] ES: 10/08/[address]: Carmella Ventura MD REQ: [id number] RECD: 10/08/19 STATUS: COMP _ SOURCE: URINE SPDESC: ORDERED: Urine Culture QUERIES: Urine Source: Random Procedure Result Reported Site Urine Culture Final 10/09/19- 1429 ML No growth of clinically significant organisms * ML - Main Lab . END OF REPORT DEPARTMENT OF PATHOLOGY, [address] [place] [address] Graham Ambrocio M.D. Director [facility] # [id number] Procedures Date Code Description Status 12/03/2019 35949 [facility] Per Full Month 20 Yrs Completed 11/02/2019 15035 [facility] Per Full Month 20 Yrs Completed 08/06/2019 33009 Dialysis One Evaluation Completed 08/05/2019 05659 [facility] Evaluation Completed 08/04/2019 18794 [facility] Evaluation Completed 08/03/2019 59373 EKG, Interpretation Only Completed Medical Devices Description No Information Available Encounters Type Date Location Provider Dx Diagnosis Office Visit 11/30/2019 [facility] Nephrology Georgiana NatiLeonora Medina, N18.6 End stage renal 3:27p MD disease K43.9 Ventral hernia without obstruction or gangrene Office Visit 11/18/2019 9:30a Jeanna Salazar K43.2 [facility] Beck[facility] MD without obstruction or gangrene Office Visit 11/04/2019 9:00a Jeanna Salazar K43.2 [facility] Beck[facility] MD without obstruction or gangrene Office Visit 09/06/2019 10:30a Surgical Marcos Diaz K43.9 [facility] Lopez MD, without FACS obstruction or gangrene E66.09 Other obesity due to excess calories Office Visit 08/17/2019 11:15a Surgical Marcos Diaz K42.9 [facility] MD, without FACS obstruction or gangrene N18.6 End stage renal disease Office Visit 08/09/2019 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 MD Arnold nephritis, not spcf as acute or chronic B96.29 Oth Escherichia coli as the cause of diseases classd elswhr E87.1 Hypo-osmolality and hyponatremia D72.829 Elevated white blood cell count, unspecified Office Visit 08/09/2019 10:07a [facility] Florence Dilaura, B96.20 Unsp Escherichia Assoc,fito MCGILL coli as the cause Hospitalists of diseases classd elswhr N39.0 Urinary tract infection, site not specified N18.6 End stage renal disease Z99.2 Dependence on renal dialysis D72.829 Elevated white blood cell count, unspecified I12.0 Hyp chr kidney disease w stage 5 chr kidney disease or Esrd F41.9 Anxiety disorder, unspecified Office Visit 08/08/2019 10:07a [facility] Partha N39.0 Urinary tract Assoc,fito Moreno M.D. infection, site Hospitalists not specified B96.20 Unsp Escherichia coli as the cause of diseases classd elswhr R42 Dizziness and giddiness E03.9 Hypothyroidism, unspecified F41.9 Anxiety disorder, unspecified N18.6 End stage renal disease Z99.2 Dependence on renal dialysis Office Visit 08/07/2019 10:06a [place] Sridevi Chavis N39.0 Urinary tract Assoc,fito Moreno M.D. infection, site Hospitalists not specified B96.20 Unsp Escherichia coli as the cause of diseases classd elswhr R42 Dizziness and giddiness N18.6 End stage renal disease Z99.2 Dependence on renal dialysis E03.9 Hypothyroidism, unspecified F41.9 Anxiety disorder, unspecified Office Visit 08/06/2019 10:06a [facility] Partha N39.0 Urinary tract Assoc,fito Moreno M.D. infection, site Hospitalists not specified B96.20 Unsp Escherichia coli as the cause of diseases classd elswhr R42 Dizziness and giddiness F41.9 Anxiety disorder, unspecified N18.6 End stage renal disease Z99.2 Dependence on renal dialysis Office Visit 08/05/2019 10:06a [facility] Partha N39.0 Urinary tract Assoc,fito Moreno M.D. infection, site Hospitalists not specified B96.20 Unsp Escherichia coli as the cause of diseases classd elswhr I95.9 Hypotension, unspecified F41.9 Anxiety disorder, unspecified Office Visit 08/04/2019 10:06a [facility] Partha N39.0 Urinary tract Assoc,fito Moreno M.D. infection, site Hospitalists not specified B96.20 Unsp Escherichia coli as the cause of diseases classd elswhr R10.9 Unspecified abdominal pain F41.9 Anxiety disorder, unspecified Office Visit 08/03/2019 10:05a [facility] Partha N39.0 Urinary tract Assoc,fito Moreno M.D. infection, site Hospitalists not specified R31.9 Hematuria, unspecified R10.9 Unspecified abdominal pain F41.9 Anxiety disorder, unspecified N18.6 End stage renal disease Z99.2 Dependence on renal dialysis Office Visit 08/03/2019 1:27p [facility] Nephrology Georgiana Lin N18.6 End stage renal MD Adam disease R31.9 Hematuria, unspecified Office Visit 08/02/2019 [facility] Ricardo Syed R10.9 Unspecified 10:05a Assoc,fito Davis M.D.,FACP abdominal pain Hospitalists R31.0 Gross hematuria E03.9 Hypothyroidism, unspecified F41.9 Anxiety disorder, unspecified N18.6 End stage renal disease Z99.2 Dependence on renal dialysis Q61.2 Polycystic kidney, adult type Assessments Date Code Description Provider 12/13/2019 K43.9 Ventral hernia without obstruction or Marcos Lopez MD, FACS gangrene 12/13/2019 N18.6 End stage renal disease Marcos Lopez MD, FACS 12/06/2019 K43.9 Ventral hernia without obstruction or Marcos Lopez MD, FACS gangrene 12/06/2019 N18.6 End stage renal disease Marcos Lopez MD, FACS 12/03/2019 N18.6 End stage renal disease Carmella Ventura MD 11/30/2019 N18.6 End stage renal disease Georgiana Medina MD 11/30/2019 K43.9 Ventral hernia without obstruction or Georgiana Medina MD gangrene 11/18/2019 K43.2 Incisional hernia without obstruction Nikhil Beckwith MD or gangrene 11/04/2019 K43.2 Incisional hernia without obstruction Nikhil [...] or chronic 08/09/2019 B96.20 Unspecified Escherichia coli [E. coli] Florence Phelan MD as the cause of diseases classified elsewhere [...] M.D. specified 08/08/2019 B96.20 Unspecified Escherichia coli [E. coli] Partha Moreno M.D. as the cause of diseases classified elsewhere [...] specified 08/07/2019 B96.20 Unspecified Escherichia coli [E. coli] Partha Moreno M.D. as the cause of diseases classified elsewhere [...] Medina MD 08/06/2019 B96.20 Unspecified Escherichia coli [E. coli] Partha Moreno M.D. as the cause of diseases classified elsewhere [...] Medina MD 08/05/2019 B96.20 Unspecified Escherichia coli [E. coli] Partha Moreno M.D. as the cause of diseases classified elsewhere 08/05/2019 I95.9 Hypotension, unspecified Partha Moreno M.D. 08/05/2019 F41.9 Anxiety disorder, unspecified Partha Moreno M.D. 08/04/2019 N39.0 Urinary tract infection, site not Partha Moreno M.D. specified 08/04/2019 N18.6 End stage renal disease Georgiana Medina MD 08/04/2019 B96.20 Unspecified Escherichia coli [E. coli] Partha Moreno M.D. as the cause of diseases classified elsewhere 08/04/2019 K65.8 Other peritonitis Georgiana Medina MD 08/04/2019 R10.9 Unspecified abdominal pain Partha Moreno M.D. 08/04/2019 F41.9 Anxiety disorder, unspecified Partha Moreno M.D. 08/03/2019 R94.31 Abnormal electrocardiogram [ECG] [EKG] Román Jules M.D. 08/03/2019 N39.0 Urinary tract infection, site not [...] 08/02/2019 R10.9 Unspecified abdominal pain Ricardo Davis M.D.,[facility] 08/02/2019 R31.0 Gross hematuria Ricardo Davis M.D.,[facility] 08/02/2019 E03.9 Hypothyroidism, unspecified Ricardo Davis M.D.,[facility] 08/02/2019 F41.9 Anxiety disorder, unspecified Ricardo Davis M.D.,[facility] 08/02/2019 N18.6 End stage renal disease Ricardo Davis M.D.,[facility] 08/02/2019 Z99.2 Dependence on renal dialysis Ricardo Davis M.D.,[facility] 08/02/2019 Q61.2 Polycystic kidney, adult type Ricardo Davis M.D.,[facility] Plan of Treatment 12/13/2019 - Marcos Lopez MD, FACSK43.9 Ventral hernia without obstruction or gangreneFollow up:None htjjmdA11.6 End stage renal disease Functional Status Description No Information Available Mental Status Description No Information Available Referrals Refer to Reason for Referral Status Appt Date Hardeep Diaz MD Created [address] [place], [place] [id number] [phone] Gerardo Finch MD Created [address] [place] [address] [place] [address] [phone]
--- OUTSIDE RECORDS SUMMARY | 2019-12-15 18:54 | XMS REPORT | Continuity of Care Document ---
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 Active Problems Provider Date Migraine with [...] Use Never Used Drugs Smoking Status Reviewed: 12/06/19 Patient is a former quit in 2013 [...] as needed Unknown (2.5mg/3ML) 0.083% Nebulizer Ipratropium [place] as needed Unknown 0.02% Solution Ventolin HFA [...] 0.1 MG Tenzin Mckeon M.D., 06/11/2019 Injection HERNANDEZ, АНДРЕЙNC Technetium TC 99M Tenzin Mckeon M.D., 06/11/2019 Tetrofosmin, Per Unit Dose ARVIN NG Up To 40 Millicuries Injection Technetium TC 99M Tenzin Mckeon M.D., 06/11/2019 Tetrofosmin, Per Unit Dose ARVIN NG Up To 40 Millicuries Injection Immunizations Description No Information Available Vital Signs Date Vital Result Comment 12/06/2019 9:56am Heart Rate 78 /min BP Systolic Sitting 128 mmHg BP Diastolic Sitting 82 mmHg Respiratory Rate 16 /min Body Temperature 97.5 F 11/18/2019 9:41am Height 67 inches 5'7" Weight 230.00 lb Heart Rate 68 /min BP Systolic Sitting 124 mmHg BP Diastolic Sitting 72 mmHg Respiratory Rate 16 /min Body Temperature 97.3 F BMI (Body Mass Index) 36.0 kg/m2 Results Test Acquired Date Facility Test Result H/L Range Note Hemoglobin/He 11/29/2019 [facility] Hemoglobin 18.5 g/dL High 12.0-16.0 [address] [place] [address] [phone] Hematocrit 54 % High 35-47 Comp Metabolic Panel 11/29/2019 [facility] Sodium 133 mmol/L Low 135-145 [address] [place] [address] [phone] Chloride 103 mmol/L Normal 101-111 Co2 Carbon [...] 13 U/L Normal 13-39 Urinalysis Profile 10/08/2019 [facility] Urine Color Yellow [address] [place] [address] [phone] Urine Appearance Cloudy Urine Specific [place] 1.010 Normal 1.010-1.030 Urine pH 8.0 Normal [...] Present Abnormal Absent Urine Culture And 10/08/2019 [facility] Urine Culture SEE RESULT [address] [place] [address] [phone] Lipid Profile 08/20/2019 N2N/CCD Import Cholesterol 84 [...] 36.0 Platelet-CT 262 150 - 400 Neuts-Abs 90975.50 High 2000 - 8800 Lymphs-Abs 459.00 Low [...] 06/16/2019 N2N/CCD Import Age Of Patient 43 SPKT/V Total 06/16/2019 N2N/CCD Import SPKT/V Total N/A KRT/V Renal 06/16/2019 N2N/CCD Import KRT/V Renal N/A Calcium Corrected 06/16/2019 N2N/CCD Import Calcium Corrected 9.3 8.7 - 10.4 STDKRT/V Renal 06/16/2019 N2N/CCD Import STDKRT/V Renal N/A Gender 06/16/2019 N2N/CCD Import Gender F Ekdt/V Dialysis 06/16/2019 N2N/CCD Import Ekdt/V Dialysis N/A Glucose 06/16/2019 N2N/CCD Import Glucose 83 70 - 99 0416 06/16/2019 N2N/CCD Import BUN 37 High 9 - 23 Creatinine 7.02 High 0.50 - 1.10 NPCR PD 0.67 Creat-PD 2.17 Urea-PD 22 Urea CLR Ur/Bsa 4.1 Low 64 - 99 Cre CLR Ur/Bsa 7 Low 75 - 115 Urea CLR Ur 4.7 Minuts Collctd-Ur 1440 Tot.Vol.-Urine 1250 Tot.Vol.-PDF 66926 Urea Gen Rate 7.9 Urea Nit Urine [...] Act 243 Clotting Time Laboratory test 06/08/2019 [facility] Poc Activated 243 seconds [address] [place] [address] [phone] 1 Because ethnic data is not always [...] no growth 3 SEE RESULT BELOW Name: ALEXISMORIAHBUFFY A : [address]: Carmella Ventura MD Acct: [id number] Unit: [id number] AGE: 43 Location: [facility] Re10/08/19 SEX: F Status: REG REF SPEC: [id number] ES: 10/08/19-[address] [facility] [address]: Carmella Ventura MD REQ: [id number] RECD: 10/08/19 STATUS: COMP _ SOURCE: URINE SPDESC: ORDERED: Urine Culture QUERIES: Urine Source: Random Procedure Result Reported Site Urine Culture Final 10/09/19- 1429 ML No growth of clinically significant organisms * ML - Main Lab . END OF REPORT DEPARTMENT OF PATHOLOGY, [address] [place] [address] Graham Ambrocio M.D. Director [facility] # [id number] [employer] Professor: [id number] Reference Range: 74-125 seconds Procedures Date Code Description Status 12/03/2019 19165 [facility] Per Full Month 20 Yrs Completed 11/02/2019 56714 [facility] Per Full Month 20 Yrs Completed 08/06/2019 31876 Dialysis One Evaluation Completed 08/05/2019 55231 Dialysis One Evaluation Completed 08/04/2019 04802 Dialysis One Evaluation Completed 08/03/2019 86400 EKG, Interpretation Only Completed 06/11/2019 87887 Stress Test Completed 06/11/2019 95582 Myocardial Perfusion Imaging Tomographic (Spect) Multiple Completed Studies 06/08/2019 75562 Moderate Sedation Services; Same Phys Intl 15 Mins; PT >= Completed 5 Years 06/08/2019 70565 Ultrasound Guidance For Vascular Access Completed 06/08/2019 37784 Dialysis Circuit Perc [facility] Thrombectomy W/ Completed Balloon Angio 06/07/2019 80893 ECHO Transthoracic, Real-Time 2D With Doppler And Color Completed Flow 06/07/2019 18002 ECHO Transthoracic, Real-Time 2D With Doppler And Color Completed Flow Medical Devices Description No Information Available Encounters Type Date Location Provider Dx Diagnosis Office Visit 11/18/2019 Surgical Nikhil Salazar K43.2 Incisional hernia 9:30a [facility] without obstruction or gangrene Office Visit 11/04/2019 Surgical Nikhil Salazar K43.2 Incisional hernia 9:00a [facility] MD without obstruction or gangrene Office Visit 09/06/2019 Surgical Marcos Lopez K43.9 Ventral hernia 10:30a [facility], BAILEE without obstruction or gangrene E66.09 Other obesity due to excess calories Office Visit 08/17/2019 11:15a Surgical Marcos Diaz K42.9 Umbilical hernia [facility] MD, without FACS obstruction or gangrene N18.6 End stage renal disease Office Visit 08/09/2019 [facility] Nephrology Gabriela N12 Tubulo-interstitial 1:45p MD Arnold nephritis, not spcf as acute or chronic B96.29 Oth Escherichia coli as the cause of diseases classd elswhr E87.1 Hypo-osmolality and hyponatremia D72.829 Elevated white blood cell count, unspecified Office Visit 08/09/2019 10:07a [facility] Florence Phelan, B96.20 Unsp Escherichia Assoc,fito MCGILL coli as the cause Hospitalists of diseases classd elswhr N39.0 Urinary tract infection, site not specified N18.6 End stage renal disease Z99.2 Dependence on renal dialysis D72.829 Elevated white blood cell count, unspecified I12.0 Hyp chr kidney disease w stage 5 chr kidney disease or Esrd F41.9 Anxiety disorder, unspecified Office Visit 08/08/2019 10:07a [facility] Partha N39.0 Urinary tract Assoc,fito Moreno M.D. infection, site Hospitalists not specified B96.20 Unsp Escherichia coli as the cause of diseases classd elswhr R42 Dizziness and giddiness E03.9 Hypothyroidism, unspecified F41.9 Anxiety disorder, unspecified N18.6 End stage renal disease Z99.2 Dependence on renal dialysis Office Visit 08/07/2019 10:06a [facility] Partha N39.0 Urinary tract Assoc,fito Moreno M.D. infection, site Hospitalists not specified B96.20 Unsp Escherichia coli as the cause of diseases classd elswhr R42 Dizziness and giddiness N18.6 End stage renal disease Z99.2 Dependence on renal dialysis E03.9 Hypothyroidism, unspecified F41.9 Anxiety disorder, unspecified Office Visit 08/06/2019 10:06a [facility] Partha N39.0 Urinary tract Assoc,fito Moreno M.D. infection, site Hospitalists not specified B96.20 Unsp Escherichia coli as the cause of diseases classd elswhr R42 Dizziness and giddiness F41.9 Anxiety disorder, unspecified N18.6 End stage renal disease Z99.2 Dependence on renal dialysis Office Visit 08/05/2019 10:06a [facility] Partha N39.0 Urinary tract Assoc,fito Moreno M.D. infection, site Hospitalists not specified B96.20 Unsp Escherichia coli as the cause of diseases classd elswhr I95.9 Hypotension, unspecified F41.9 Anxiety disorder, unspecified Office Visit 08/04/2019 10:06a [facility] Partha N39.0 Urinary tract Assoc,fito Moreno M.D. infection, site Hospitalists not specified B96.20 Unsp Escherichia coli as the cause of diseases classd elswhr R10.9 Unspecified abdominal pain F41.9 Anxiety disorder, unspecified Office Visit 08/03/2019 10:05a [facility] Partha N39.0 Urinary tract Assoc,fito Moreno M.D. infection, site Hospitalists not specified R31.9 Hematuria, unspecified R10.9 Unspecified abdominal pain F41.9 Anxiety disorder, unspecified N18.6 End stage renal disease Z99.2 Dependence on renal dialysis Office Visit 08/03/2019 1:27p [facility] Nephrology Georgiana Lin N18.6 End stage renal MD Adam disease R31.9 Hematuria, unspecified Office Visit 08/02/2019 [facility] Ricardo Syed R10.9 Unspecified 10:05a Assoc,fito Davis M.D.,FACP abdominal pain Hospitalists R31.0 Gross hematuria E03.9 Hypothyroidism, unspecified F41.9 Anxiety disorder, unspecified N18.6 End stage renal disease Z99.2 Dependence on renal dialysis Q61.2 Polycystic kidney, adult type Assessments Date Code Description Provider 12/06/2019 K43.9 Ventral hernia without obstruction or [...] chronic 08/09/2019 B96.20 Unspecified Escherichia coli [E. Florence Phelan MD coli] as the cause of [...] Medina MD 08/06/2019 B96.20 Unspecified Escherichia coli [ELeonora Moreno M.D. coli] as the cause of [...] Medina MD 08/03/2019 R31.9 Hematuria, unspecified Partha Moerno M.D. 08/03/2019 R31.9 Hematuria, unspecified Georgiana Medina MD 08/03/2019 R10.9 Unspecified abdominal pain Partha Moreno M.D. 08/03/2019 F41.9 Anxiety disorder, unspecified Partha Moreno M.D. 08/03/2019 N18.6 End stage renal disease Partha Moreno M.D. 08/03/2019 Z99.2 Dependence on renal dialysis Partha Moreno M.D. 08/02/2019 R10.9 Unspecified abdominal pain Ricardo Davis M.D.,[facility] 08/02/2019 R31.0 Gross hematuria Ricardo Davis M.D.,[facility] 08/02/2019 E03.9 Hypothyroidism, unspecified Ricardo Davis M.D.,[facility] 08/02/2019 F41.9 Anxiety disorder, unspecified Ricardo Davis M.D.,[facility] 08/02/2019 N18.6 End stage renal disease Ricardo Davis M.D.,[facility] 08/02/2019 Z99.2 Dependence on renal dialysis Ricardo Davis M.D.,[facility] 08/02/2019 Q61.2 Polycystic kidney, adult type Ricardo Davis M.D.,[facility] 06/11/2019 N18.6 End stage renal disease Tenzin Mckeon M.D., [facility] 06/11/2019 Z01.810 Encounter for preprocedural Tenzin Mckeon M.D., cardiovascular examination [facility] 06/08/2019 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 devices, implants and grafts, initial encounter 06/07/2019 N18.6 End stage renal disease Tenzin Mckeon M.D., [facility] 06/07/2019 N18.6 End stage renal disease Traveling ECHO 1 Plan of Treatment Future Appointment(s):12/13/2019 9:30 am - Marcos Lopez MD, FACS at [facility]12/06/2019 - Marcos Lopez MD, FACSK43.9 Ventral hernia without obstruction or gangreneFollow up:In 1 week for additional staple removal.N18.6 End stage renal disease Functional Status Description No Information Available Mental Status Description No Information Available Referrals Refer to Dr Reason for Referral Status Appt Date Hardeep Diaz MD Created [address] [place] [address] [place] [address] [phone] Gerardo Finch MD Created [address] [place] [address] [phone] Abraham Barajas MD Sent [address] [place] [address] [phone]
[2019-12-15] MEDS ORDERED: Ondansetron INJ* 2 MG/ML VIAL IV ONE (19:04)
[2019-12-15] MEDS ORDERED: NS 0.9% 1000 ML** 1,000 ML IV ONE ×2 (19:04→20:30)
[2019-12-15] MEDS ORDERED: cefTRIAXone(*) 1 GM in NS 0.9% 50 ML* 50 ML IVPB ONE (19:37)
[2019-12-15] MEDS ORDERED: Acetaminophen TAB* 325 MG PO ONE (19:38)
--- NOTE | 2019-12-15 19:38 | ED ---
GI/ HPI - HPI Summary HPI Summary: Patient on peritoneal dialysis nightly complains of UTI symptoms. Diagnosed 2 days ago and started taking Cipro. Patient states she usually has improved after 2 days Cipro, but states symptoms are getting worse, involving confusion, increased urinary urge and frequency, nausea and vomiting. Denies any other pain, injury or symptoms. Medical history is ESRD, hernia, hypothyroid, HTN. - History of Current Complaint Chief Complaint: EDUrogenitalProblems Time Seen by Provider: 12/15/19 18:59 Stated Complaint: GENERAL ILLNESS PER EMS Hx Obtained From: Patient, Family/Glass Science Engineer Hx Last Menstrual Period: [id number] Onset/Duration: Started Days Ago Timing: Constant Severity: Moderate Current Severity: Severe Pain Intensity: 10 Location of Pain: Groin Pain Characteristics: Burning Associated Signs and Symptoms: Positive: Nausea, Vomiting, Lightheadedness - Additional Pertinent History Primary Care Physician: [id number] - Allergy/Home Medications Allergies/Adverse Reactions: Allergies Allergy/AdvReac Type Severity Reaction Status Date / Time morphine Allergy Severe Difficulty Verified 10/15/19 06:31 Breathing Home Medications: Home Medications Calcitriol CAP* [Rocaltrol CAP*] 0.25 mcg PO DAILY 12/15/19 [History Confirmed 12/15/19] Calcium Polycarbophil TAB* [Fibercon TAB*] 625 mg PO DAILY 12/15/19 [History Confirmed 12/15/19] Ropinirole TAB* [Requip TAB*] 0.25 mg PO BEDTIME 12/15/19 [History Confirmed 10/22] dilTIAZem HCl [Diltiazem 24Hr ER (Cd)] 240 mg PO DAILY 12/15/19 [History Confirmed 12/15/19] PMH/Surg Hx/FS Hx/Imm Hx Endocrine/Hematology History: Reports: Hx Thyroid Disease - hypothyroid Denies: Hx Bone Marrow Disease, Hx Diabetes, Hx Sickle Cell Disease, Hx Anemia Cardiovascular History: Reports: Hx Hypertension - on medication for, Other Cardiovascular Problems/Disorders - Right forearm AV Fistula Denies: Hx Angina, Hx Cardiomegaly, Hx Congestive Heart Failure, Hx Coronary Artery Disease, Hx Pacemaker/ICD, Hx Peripheral Vascular Disease, Hx Rheumatic Fever, Hx Valvular Heart Disease Respiratory History: Reports: Hx Asthma - has rescue inhalers Denies: Hx Chronic Obstructive Pulmonary Disease (COPD), Hx Pulmonary Edema, Hx Pulmonary Embolism, Hx Sleep Apnea, Other Respiratory Problems/Disorders GI History: Reports: Hx Gastroesophageal Reflux Disease - omeprazole Denies: Hx Cirrhosis, Hx Crohn's Disease, Hx Hiatal Hernia, Hx Irritable Bowel, Hx Jaundice, Hx Ulcer, Other GI Disorders History: Reports: Hx Chronic Renal Failure, Hx Dialysis - DAILY, Hx Kidney Infection - Pyelonephritis 07/22, Hx Renal Disease - PD CATH Denies: Hx Kidney Stones, Other Problems/Disorders Musculoskeletal History: Denies: Hx Arthritis, Hx Bursitis, Hx Osteoporosis, Hx Tendonitis, Other Musculoskeletal History Sensory History: Denies: Hx Cataracts, Hx Contacts or Glasses, Hx Glaucoma, Hx Hearing Aid Opthamlomology History: Denies: Hx Cataracts, Hx Contacts or Glasses, Hx Glaucoma Neurological History: Reports: Hx Migraine - pt states migraines have improved, Hx Transient Ischemic Attacks (TIA) Denies: Hx Headaches, Hx Nerve Disease, Hx Seizures, Other Neuro Impairments/ Disorders Psychiatric History: Reports: Hx Anxiety - on medication for, Hx Panic Disorder Denies: Hx Depression - Cancer History Hx Chemotherapy: No - Surgical History Surgery Procedure, Year, and Place: [place] [facility] [place] PD port placement [place]. HERNIA 2017. PD catheter removal and reinsertion in 2019. Fistula repair. 06/18/19 Fistula repair Hx Anesthesia Reactions: No - Immunization History Date of Influenza Vaccine: 08/20 Infectious Disease History: No Infectious Disease History: Denies: Hx Clostridium Difficile, Hx Hepatitis, Hx Human Immunodeficiency Virus (HIV), Hx of Known/Suspected MRSA, Hx Shingles, Hx Tuberculosis, Hx Known/ Suspected VRE, Hx Known/Suspected VRSA, History Other Infectious Disease, Traveled Outside the [place] in Last 30 Days - Family History Known Family History: Positive: Hypertension, Renal Disease, Non-Contributory - Social History Alcohol Use: None Substance Use Type: Reports: None Smoking Status (MU): Former Smoker Type: Cigarettes Amount Used/How Often: 1/2 ppd smoked for 20 years Have You Smoked in the Last Year: No Review of Systems Constitutional: Negative Eyes: Negative ENT: Negative Cardiovascular: Negative Respiratory: Negative Positive: Vomiting, Nausea Positive: burning, dysuria, frequency, urgency Musculoskeletal: Negative Skin: Negative Neurological/Mental Status: Negative Psychological: Normal All Other Systems Reviewed And Are Negative: Yes Physical Exam Triage Information Reviewed: Yes Vital Signs On Initial Exam: Initial Vitals Temp Pulse Resp BP Pulse Ox 97.9 F 80 18 164/97 95 12/15/19 18:36 12/15/19 18:36 12/15/19 18:36 12/15/19 18:36 12/15/19 18:36 Vital Signs Reviewed: Yes Appearance: Positive: Well-Appearing Skin: Positive: Warm Head/Face: Positive: Normal Head/Face Inspection Eyes: Positive: Normal Neck: Positive: Supple Respiratory/Lung Sounds: Positive: Clear to Auscultation Cardiovascular: Positive: Normal Abdomen Description: Positive: Nontender Musculoskeletal: Positive: Normal Neurological: Positive: Normal Psychiatric: Positive: Normal AVPU Assessment: Alert - Kajal Coma Scale Best Eye Response: 4 - Spontaneous Best Motor Response: 6 - Obeys Commands Best Verbal Response: 5 - Oriented Coma Scale Total: 15 Procedures - Sedation Patient Received Moderate/Deep Sedation with Procedure: No Diagnostics - Vital Signs Vital Signs Temp Pulse Resp BP Pulse Ox 12/15/19 18:42 80 164/97 95 12/15/19 18:41 82 96 12/15/19 18:36 97.9 F 80 18 164/97 95 - Laboratory Result Diagrams: 12/15/19 19:57 12/15/19 19:57 Lab Statement: Any lab studies that have been ordered have been reviewed, and results considered in the medical decision making process. GIGU Course/Dx - Course Course Of Treatment: Patient on peritoneal dialysis nightly complains of UTI symptoms. Diagnosed 2 days ago and started taking Cipro. Patient states she usually has improved after 2 days Cipro, but states symptoms are getting worse, involving confusion, increased urinary urge and frequency, nausea and vomiting. Denies any other pain, injury or symptoms. Medical history is ESRD, hernia, hypothyroid, HTN. Vital signs within normal limits. Labs at patient baseline. Urine negative. Rocephin 1 mg IV administered. Patient advised to follow-up with nephrology. Rx for Keflex. Patient will go home and perform PD before bed. - Diagnoses Provider Diagnoses: UTI (urinary tract infection), Nausea & vomiting, Confusion, Lightheaded, Hyperkalemia, ESRD (end stage renal disease) Discharge ED - Sign-Out/Discharge Documenting (check all that apply): Patient Departure - Discharge Plan Condition: Stable Disposition: HOME Prescriptions: Cephalexin CAP* [Keflex CAP*] 500 mg PO BID 5 Days #10 cap Ondansetron ODT TAB* [Zofran 4 MG Odt TAB*] 4 mg PO Q8H PRN 4 Days #14 tab.odt PRN Reason: Nausea Patient Education Materials: Urinary Tract Infection in Women (ED) Referrals: Regi Garnica [Primary Care Provider] - Additional Instructions: Call your church history teacher to ask if you should stop taking Cipro. Take Keflex twice a day for 5 days. Take Zofran as directed for nausea. Follow-up with primary care and nephrology. Return to the ED for any new or worsening symptoms. - Billing Disposition and Condition Condition: STABLE Disposition: Home
[2019-12-15] MEDS ORDERED: Ondansetron ODT TAB* 4 MG PO ONE (19:48)
[2019-12-15 20:05] LABS: ABS Basophils 0.1 10^3/ul (0-0.2); ABS Eosinophils 0.1 10^3/ul (0-0.6); ABS Lymphocytes 1.3 10^3/ul (1.0-4.8); ABS Monocytes 0.5 10^3/ul (0-0.8); ABS Neutrophils 5.7 10^3/ul (1.5-7.7); Eosinophil % 1.3 %; Hematocrit 48 % (35-47); Hemoglobin 16.5 g/dL (12.0-16.0); Lymphocyte % 17.1 %; Mean Corpuscular HGB Conc 34 g/dL (31-36); Mean Corpuscular Hemoglobin 33 pg (27-31); Mean Corpuscular Volume 96 fL (80-97); Mean Platelet Volume 8.5 fL (7.4-10.4); Platelet Count 140 10^3/uL (150-450); Red Blood Count 5.02 10^6 /uL (3.70-4.87); Red Cell Distribution Width 16 % (10-15); White Blood Count 7.7 10^3/uL (3.5-10.8)
[2019-12-15] MEDS ORDERED: oxyCODONE TAB* 5 MG TAB PO ONE (20:21)
[2019-12-15 20:22] LABS: Albumin 3.6 g/dL (3.2-5.2); Albumin/Globulin Ratio 1.2 (1-3); BUN/Creatinine Ratio 5.6 (8-20); C Reactive Protein 5.95 mg/L (<8.01); EGFR African American 6.1 (>60); Globulin 3.1 g/dL (2-4); Total Bilirubin 0.3 mg/dL (0.2-1.0); Total Protein 6.7 g/dL (6.4-8.9)
[2019-12-15 20:26] LABS: Potassium 6.1 mmol/L (3.5-5.0)
[2019-12-15 20:29] LABS: HCG Pregnancy 1.51 mIU/mL
[2019-12-15 20:34] LABS: Influenza A Molecular Negative (Negative); Influenza B Molecular Negative (Negative)
[2019-12-15 22:23] LABS: Urine Appearance Cloudy; Urine Bilirubin Negative (Negative); Urine Blood 1+ (Negative); Urine Color Yellow; Urine Glucose Negative (Negative); Urine Ketones Negative (Negative); Urine Nitrite Negative (Negative); Urine Protein 2+(100 mg/dL) (Negative); Urine Urobilinogen Negative (Negative)
[2019-12-15 23:02] LABS: Urine Bacteria 1+ (Absent); Urine Red Blood Cell 2+(6-10/hpf) (Absent); Urine Squamous Epithelial Cell Present (Absent); Urine White Blood Cell 1+(6-10/hpf) (Absent)
[2019-12-15 23:45] VITALS: BP 127/81
== END 2019-12-15 23:44 | disposition home or self-care (01) ==
LOC: ED 18:32
DX: N39.0 Urinary tract infection, site not specified (principal); R11.2 Nausea with vomiting, unspecified; R42 Dizziness and giddiness; E87.5 Hyperkalemia; I12.0 Hypertensive chronic kidney disease with stage 5 chronic kidney disease or end stage renal disease; N18.6 End stage renal disease; Z99.2 Dependence on renal dialysis; E03.9 Hypothyroidism, unspecified; J45.909 Unspecified asthma, uncomplicated; K21.9 Gastro-esophageal reflux disease without esophagitis; F41.9 Anxiety disorder, unspecified; Z87.891 Personal history of nicotine dependence; Z79.899 Other long term (current) drug therapy; Z88.5 Allergy status to narcotic agent
CPT/HCPCS: 36415; 80053; 81003; 81015; 83605; 84702; 85025; 86140; 87077; 87086; 93005; 96361; 96365; 96375; 99284; A9270-GY; J0696; J2405

== ENCOUNTER 2020-08-22 03:37 | Inpatient (IN) ==
[2020-08-22] MEDS ORDERED: Heparin - STEMI 5,000 UNITS/ML 1 ml VIAL IV ONE (03:41)
[2020-08-22] MEDS ORDERED: nitroGLYCERIN DRIP 25,000 MCG in Premix IV 0 ML IV ONE (03:41)
[2020-08-22] MEDS ORDERED: Heparin 5000 UNITS/ML 1 mL VIAL ONE (03:44)
[2020-08-22] MEDS ORDERED: nitroGLYCERIN DRIP 0 MCG/0 ML BTL ONE (03:44)
[2020-08-22] MEDS ORDERED: Metoprolol Tartrate 5 mg VIAL 5 ml VIAL (1 mg/ml) IV PRN (03:55)
[2020-08-22] MEDS ORDERED: Midazolam 5 mg/5 ml VIAL 1 mg/ml 5 ml VIAL (5 mg) ONE (03:56)
[2020-08-22] MEDS ORDERED: fentaNYL 100 mcg/2 ml 50 MCG/ML VIAL ONE (03:56)
[2020-08-22] MEDS ORDERED: nitroGLYCERIN DRIP 25,000 MCG/250 ML BTL ONE (03:57)
[2020-08-22] MEDS ORDERED: Heparin 2 UNITS/ML 1000 mls 2,000 ML IV ONE (03:57)
[2020-08-22] MEDS ORDERED: Iohexol 350 (CONTRAST) 200 ML MDV IV ONE (03:57)
[2020-08-22] MEDS ORDERED: Lidocaine 1% VIAL 10 MG/ML VIAL ONE (03:57)
[2020-08-22] MEDS ORDERED: VERAPAMIL 2.5 MG/ML 2 ML VIAL ** 5 mg/2 ml ONE (03:58)
[2020-08-22] MEDS ORDERED: Heparin 1,000 UNIT/ML 10 ml (10,000 UNITS) CATHLAB/DIALYSIS ONE (03:58)
[2020-08-22] MEDS ORDERED: Iodixanol 320 (CONTRAST) 100 ML SDV ONE (04:02)
[2020-08-22 04:04] LABS: ABS Basophils 0.1 10^3/ul (0-0.2); ABS Eosinophils 0.2 10^3/ul (0-0.6); ABS Lymphocytes 1.7 10^3/ul (1.0-4.8); ABS Monocytes 1.2 10^3/ul (0-0.8); ABS Neutrophils 11.4 10^3/ul (1.5-7.7); Eosinophil % 1.2 %; Hematocrit 31 % (35-47); Hemoglobin 10.4 g/dL (12.0-16.0); Lymphocyte % 11.9 %; Mean Corpuscular HGB Conc 33 g/dL (31-36); Mean Corpuscular Hemoglobin 31 pg (27-31); Mean Corpuscular Volume 94 fL (80-97); Mean Platelet Volume 7.7 fL (7.4-10.4); Platelet Count 427 10^3/uL (150-450); Red Blood Count 3.33 10^6 /uL (3.70-4.87); Red Cell Distribution Width 16 % (10-15); White Blood Count 14.6 10^3/uL (3.5-10.8)
[2020-08-22] MEDS ORDERED: Etomidate 40 mg/20 ml (2 MG/ML) 20 ml VIAL (40 mg) ONE (04:13)
[2020-08-22] MEDS ORDERED: Succinylcholine 200 mg VIAL 20 mg/ml 10 ml VIAL (200 mg) ONE (04:14)
[2020-08-22] MEDS ORDERED: Norepinephrine 16MCG/ML IVPRE 4,000 MCG/250 ML BAG IV ONE (04:16)
[2020-08-22 04:22] LABS: ALT 4 U/L (7-52); AST 8 U/L (13-39); Albumin 2.3 g/dL (3.2-5.2); Albumin/Globulin Ratio 0.8 (1-3); Alkaline Phosphatase 54 U/L (34-104); Anion Gap 14 mmol/L (2-11); BUN/Creatinine Ratio 5.1 (8-20); Blood Urea Nitrogen 53 mg/dL (6-24); CO2 Carbon Dioxide 21 mmol/L (22-32); Calcium 7.8 mg/dL (8.6-10.3); Chloride 95 mmol/L (101-111); Creatine Kinase 44 U/L (10-223); EGFR African American 4.9 (>60); EGFR Non-African American 4.1 (>60); Globulin 2.8 g/dL (2-4); Glucose 295 mg/dL (70-100); LDL Cholesterol Direct 63 mg/dL; Potassium 4.3 mmol/L (3.5-5.0); Sodium 130 mmol/L (135-145); Total Protein 5.1 g/dL (6.4-8.9)
[2020-08-22 04:26] LABS: CKMB ng/mL 3.8 ng/mL (0.6-6.3); Troponin I 0.08 ng/mL (<0.03)
[2020-08-22] MEDS ORDERED: Heparin 2 UNITS/ML 1000 mls 1,000 ML IV ONE (04:32)
[2020-08-22 05:41] LABS: INR 1.15 (0.82-1.09)
[2020-08-22 05:44] LABS: Activated Partial Thrombo Time 152.3 seconds (26.0-38.0)
[2020-08-22] MEDS ORDERED: NS 0.9% 1000 ml BAG 1,000 ML IV SCH (06:45)
[2020-08-22] MEDS ORDERED: Norepinephrine 16MCG/ML IVPRE 4,000 MCG/250 ML BAG IV SCH (07:00)
[2020-08-22] MEDS ORDERED: Perflutren Lipid Microsphere 3 ML VIAL ONE (07:41)
[2020-08-22] MEDS ORDERED: Norepinephrine 8 mg in 500 mL NS (Pharmacy Admixed Drip) IV SCH (08:00)
[2020-08-22 08:47] LABS: ABS Eosinophils 0.1 10^3/ul (0-0.6); ABS Lymphocytes 1.4 10^3/ul (1.0-4.8); ABS Monocytes 1.4 10^3/ul (0-0.8); ABS Neutrophils 16.2 10^3/ul (1.5-7.7); Eosinophil % 0.4 %; Hematocrit 29 % (35-47); Hemoglobin 9.7 g/dL (12.0-16.0); Lymphocyte % 7.6 %; Mean Corpuscular HGB Conc 34 g/dL (31-36); Mean Corpuscular Hemoglobin 31 pg (27-31); Mean Corpuscular Volume 93 fL (80-97); Mean Platelet Volume 7.9 fL (7.4-10.4); Platelet Count 446 10^3/uL (150-450); Red Blood Count 3.08 10^6 /uL (3.70-4.87); Red Cell Distribution Width 16 % (10-15); White Blood Count 19.2 10^3/uL (3.5-10.8)
[2020-08-22 08:57] LABS: EGFR African American 5.1 (>60); EGFR Non-African American 4.2 (>60)
[2020-08-22 08:58] LABS: Troponin I 1.27 ng/mL (<0.03)
[2020-08-22] MEDS ORDERED: Metoprolol Tartrate 5 mg VIAL 5 ml VIAL (1 mg/ml) ONE (09:21)
[2020-08-22] MEDS: Phenylephrine INJ 50 MG in NS 0.9% IV SCH ×3 (09:23→19:27)
[2020-08-22 10:02] LABS: Urine Appearance Turbid; Urine Bilirubin Negative (Negative); Urine Blood 1+ (Negative); Urine Color Amber; Urine Glucose Negative (Negative); Urine Ketones Negative (Negative); Urine Nitrite Negative (Negative); Urine Protein 3+(>=500 mg/dL) (Negative); Urine Specific Gravity 1.011 (1.010-1.030); Urine Urobilinogen Negative (Negative)
[2020-08-22 10:10] LABS: Urine Bacteria 1+ (Absent); Urine Red Blood Cell 1+(3-5/hpf) (Absent); Urine White Blood Cell 3+(>20/hpf) (Absent)
[2020-08-22] MEDS ORDERED: Propofol 10 mg/ml 100 ML BTL 100 ML ONE (10:22)
[2020-08-22] MEDS: Chlorhexidine MOUTHWASH 0.12% 15 ML UDC TOPICAL SCH ×3 (10:41→17:58)
[2020-08-22] MEDS: Albumin Human 5% 12.5 GM/250 ML BTL IV SCH ×2 (10:45→11:47)
[2020-08-22] MEDS ORDERED: Propofol 10 mg/ml 100 ML BTL 100 ML IV SCH (11:00)
[2020-08-22] MEDS: Propofol* 20 ML VIAL - FOR IV LINE PRIMING ONLY SCH (11:19)
[2020-08-22 12:08] LABS: Anion Gap 14 mmol/L (2-11); CO2 Carbon Dioxide 20 mmol/L (22-32); Calcium 7.4 mg/dL (8.6-10.3); Chloride 98 mmol/L (101-111); Glucose 148 mg/dL (70-100); Potassium 4.7 mmol/L (3.5-5.0); Sodium 132 mmol/L (135-145)
[2020-08-22 12:10] LABS: BUN/Creatinine Ratio 5.2 (8-20); Blood Urea Nitrogen 52 mg/dL (6-24)
[2020-08-22 14:51] LABS: Troponin I 2.64 ng/mL (<0.03)
[2020-08-22] MEDS ORDERED: Piperacillin/Tazobac ADVAN 3.375 GM in NS 0.9% 100 ml BAG 100 ML IV ONE (15:01)
[2020-08-22] MEDS ORDERED: Zosyn per Pharmacy NOTE FOLLOW UP SCH (16:00)
[2020-08-22] MEDS: Propofol 10 mg/ml 100 ML BTL 100 ML IV SCH ×2 (16:28→21:54)
[2020-08-22] MEDS: Famotidine IV 10 MG/ML 2 ml VIAL (20 mg) IV SCH (17:58)
[2020-08-22] MEDS: Heparin 5000 UNITS/ML 1 mL VIAL SUBCUT SCH (17:58)
[2020-08-22] MEDS: ZOSYN 3.375 GM Q12H per EXTENDED INFUSION IV SCH (20:29)
[2020-08-22] MEDS ORDERED: Phenylephrine IV 100 MG in NS 0.9% 500 ml BAG 490 ML IV SCH (21:14)
[2020-08-22] MEDS ORDERED: Albumin Human 25% 25 GM/100 ML IV ONE (23:30)
[2020-08-22] MEDS ORDERED: Sodium Bicarbonate 8.4% VIAL 1 MEQ/ML 50 ml VIAL (50 meq) ONE (23:30)
[2020-08-22] MEDS ORDERED: NS IV SCH (23:45)
[2020-08-22] MEDS ORDERED: NOREPINEPHRINE IV SCH (23:45)
[2020-08-23] MEDS ORDERED: Sodium Bicarbonate 8.4% VIAL 1 MEQ/ML 50 ml VIAL (50 meq) IV ONE
[2020-08-23 00:09] LABS: Albumin/Globulin Ratio 1.4 (1-3); BUN/Creatinine Ratio 5.4 (8-20); Calcium 6.5 mg/dL (8.6-10.3); EGFR African American 5.1 (>60); EGFR Non-African American 4.2 (>60); Globulin 1.4 g/dL (2-4); Phosphorus 11.1 mg/dL (2.5-5.0); Total Bilirubin 0.3 mg/dL (0.2-1.0); Total Protein 3.4 g/dL (6.4-8.9)
[2020-08-23 00:13] LABS: Potassium 7.8 mmol/L (3.5-5.0)
[2020-08-23] MEDS ORDERED: Dextrose 50% Syringe 50 ml 25 GM/50 ML SYRINGE ONE (00:13)
[2020-08-23] MEDS: Propofol* 20 ML VIAL - FOR IV LINE PRIMING ONLY SCH ×2 (00:17→12:16)
[2020-08-23] MEDS: NS 0.9% IV SCH ×3 (00:18→17:37)
[2020-08-23] MEDS: PHENYLEPHRINE IV SCH ×3 (00:18→17:37)
[2020-08-23] MEDS ORDERED: Calcium Gluconate 2 GM in NS 0.9% 100 ml BAG 100 ML IV ONE (00:19)
[2020-08-23] MEDS ORDERED: Sodium Polystyrene ORAL.SUSP 15 GM/60 ML BTL PO ONE (00:21)
[2020-08-23] MEDS: Dextrose 50% Syringe 50 ml 25 GM/50 ML SYRINGE IV PUSH PRN ×6 (00:51→20:06)
[2020-08-23] MEDS: Chlorhexidine MOUTHWASH 0.12% 15 ML UDC TOPICAL SCH ×6 (00:51→20:19)
[2020-08-23] MEDS ORDERED: Sodium Bicarbonate 8.4% SYR 50 ml SYRINGE IV ONE ×2 (01:17→03:13)
[2020-08-23 01:29] LABS: ABS Eosinophils 0.1 10^3/ul (0-0.6); ABS Lymphocytes 1.6 10^3/ul (1.0-4.8); ABS Monocytes 1.2 10^3/ul (0-0.8); ABS Neutrophils 15.4 10^3/ul (1.5-7.7); Eosinophil % 0.3 %; Hematocrit 14 % (35-47); Lymphocyte % 8.6 %; Mean Corpuscular HGB Conc 33 g/dL (31-36); Mean Corpuscular Hemoglobin 32 pg (27-31); Mean Corpuscular Volume 96 fL (80-97); Mean Platelet Volume 8.7 fL (7.4-10.4); Nucleated Red Blood Cells % 0.1; Platelet Count 182 10^3/uL (150-450); Red Blood Count 1.45 10^6 /uL (3.70-4.87); Red Cell Distribution Width 16 % (10-15); White Blood Count 18.2 10^3/uL (3.5-10.8)
[2020-08-23] MEDS ORDERED: Norepinephrine IV 16 MG in NS 0.9% 250 ml 234 ML IV SCH (01:42)
[2020-08-23 02:15] LABS: Hematocrit 14 % (35-47); Mean Corpuscular HGB Conc 32 g/dL (31-36); Mean Corpuscular Hemoglobin 32 pg (27-31); Mean Corpuscular Volume 99 fL (80-97); Mean Platelet Volume 8.9 fL (7.4-10.4); Platelet Count 179 10^3/uL (150-450); Red Blood Count 1.38 10^6 /uL (3.70-4.87); Red Cell Distribution Width 16 % (10-15)
[2020-08-23 02:15] LABS: BUN/Creatinine Ratio 5.5 (8-20); Calcium 6.9 mg/dL (8.6-10.3); EGFR African American 4.9 (>60); EGFR Non-African American 4.1 (>60)
[2020-08-23 02:16] LABS: ABS Basophils 0.1 10^3/ul (0-0.2); ABS Eosinophils 0.1 10^3/ul (0-0.6); ABS Lymphocytes 1.4 10^3/ul (1.0-4.8); ABS Monocytes 0.8 10^3/ul (0-0.8); ABS Neutrophils 15.3 10^3/ul (1.5-7.7); Eosinophil % 0.6 %; Lymphocyte % 7.7 %
[2020-08-23 02:17] LABS: Potassium 6.6 mmol/L (3.5-5.0)
[2020-08-23] MEDS ORDERED: CALCIUM GLUCONATE 1GM/50ML NS 1 GM/50 ML BAG IV ONE (02:27)
[2020-08-23] MEDS ORDERED: Dextrose 50% Syringe 50 ml 25 GM/50 ML SYRINGE PRN (02:50)
[2020-08-23 03:01] LABS: Immature Retic Fraction 0.62; RBC Retic Count 1.39 10^6/uL (3.70-4.87)
[2020-08-23 03:28] LABS: Albumin/Globulin Ratio 1.5 (1-3); BUN/Creatinine Ratio 5.6 (8-20); Calcium 6.9 mg/dL (8.6-10.3); EGFR Non-African American 4.1 (>60); Globulin 1.3 g/dL (2-4); Total Bilirubin 0.3 mg/dL (0.2-1.0); Total Protein 3.3 g/dL (6.4-8.9)
[2020-08-23 03:31] LABS: Potassium 5.9 mmol/L (3.5-5.0)
[2020-08-23 03:43] LABS: Hematocrit for Retic CNT 14 % (35-47)
[2020-08-23 03:44] LABS: Corrected Retic Count 0.9 % (0.5-1.5)
[2020-08-23 03:45] LABS: % Iron Saturation 66 % (15-55); Iron 97 ug/dL (50-212); LDH 269 U/L (140-271); Total Iron Binding Capacity 146 mcg/dL (250-450); Transferrin 104 mg/dL (203-362); Unsaturated Iron Binding < 131 ug/dL
[2020-08-23 03:46] LABS: Hemoglobin 4.4 g/dL (12.0-16.0); White Blood Count 17.5 10^3/uL (3.5-10.8)
[2020-08-23 04:58] LABS: Hemoglobin 4.6 g/dL (12.0-16.0)
[2020-08-23 05:11] LABS: Microcytosis 2+
[2020-08-23] MEDS: Propofol 10 mg/ml 100 ML BTL 100 ML IV SCH ×2 (05:24→20:47)
[2020-08-23] MEDS: Heparin 5000 UNITS/ML 1 mL VIAL SUBCUT SCH (05:24)
[2020-08-23 07:03] LABS: Activated Partial Thrombo Time 39.5 seconds (26.0-38.0); Albumin 2.2 g/dL (3.2-5.2); Albumin/Globulin Ratio 1.5 (1-3); BUN/Creatinine Ratio 5.5 (8-20); Calcium 7.3 mg/dL (8.6-10.3); EGFR Non-African American 4.2 (>60); Globulin 1.5 g/dL (2-4); HDL Cholesterol 6.4 mg/dL; INR 1.94 (0.82-1.09); Total Bilirubin 0.4 mg/dL (0.2-1.0); Total Protein 3.7 g/dL (6.4-8.9)
[2020-08-23 07:09] LABS: Potassium 5.3 mmol/L (3.5-5.0)
[2020-08-23 07:54] LABS: Magnesium 1.9 mg/dL (1.9-2.7); Phosphorus 10.6 mg/dL (2.5-5.0)
[2020-08-23] MEDS ORDERED: D10W 1000 ml BAG 1,000 ML IV SCH (08:00)
[2020-08-23] MEDS: ZOSYN 3.375 GM Q12H per EXTENDED INFUSION IV SCH ×2 (08:39→20:19)
[2020-08-23] MEDS ORDERED: Vancomycin 1,000 MG in NS 0.9% 250 ml 250 ML IVPB ONE (08:59)
[2020-08-23 09:06] LABS: Hematocrit 25 % (35-47); Hemoglobin 8.1 g/dL (12.0-16.0); Mean Corpuscular HGB Conc 32 g/dL (31-36); Mean Corpuscular Hemoglobin 30 pg (27-31); Mean Corpuscular Volume 94 fL (80-97); Platelet Count 135 10^3/uL (150-450); Red Blood Count 2.68 10^6 /uL (3.70-4.87); Red Cell Distribution Width 17 % (10-15); White Blood Count 15.6 10^3/uL (3.5-10.8)
[2020-08-23] MEDS: D5W 1000 ml BAG 1,000 ML IV SCH ×2 (10:35→20:34)
[2020-08-23] MEDS ORDERED: D5W IV SCH (10:37)
[2020-08-23] MEDS ORDERED: NOREPINEPHRINE IV SCH (10:37)
[2020-08-23 11:12] LABS: ABS Eosinophils 0.2 10^3/ul (0-0.6); ABS Lymphocytes 0.9 10^3/ul (1.0-4.8); ABS Neutrophils 13.6 10^3/ul (1.5-7.7); Lymphocyte % 5.5 %; Nucleated Red Blood Cells % 0.1
[2020-08-23 11:15] LABS: Polychromasia 1+
[2020-08-23 11:16] LABS: Acanthocytes 1+
[2020-08-23] MEDS ORDERED: Heparin 1,000 UNIT/ML 10 ml (10,000 UNITS) CATHLAB/DIALYSIS DIALYSIS ONE (12:00)
[2020-08-23 14:42] LABS: Hematocrit 39 % (35-47); Hemoglobin 12.9 g/dL (12.0-16.0)
[2020-08-23] MEDS ORDERED: Albumin Human 25% 25 GM/100 ML BTL IV ONE (15:00)
[2020-08-23] MEDS: Famotidine IV 10 MG/ML 2 ml VIAL (20 mg) IV SCH (17:10)
[2020-08-23 20:22] VITALS: BP 77/25
[2020-08-23 20:37] LABS: BUN/Creatinine Ratio 4.6 (8-20); Calcium 6.6 mg/dL (8.6-10.3); EGFR African American 10.9 (>60); Potassium 4.5 mmol/L (3.5-5.0)
[2020-08-23 20:42] LABS: Hematocrit 30 % (35-47); Hemoglobin 9.8 g/dL (12.0-16.0); Mean Corpuscular HGB Conc 33 g/dL (31-36); Mean Corpuscular Hemoglobin 30 pg (27-31); Mean Corpuscular Volume 90 fL (80-97); Mean Platelet Volume 9.2 fL (7.4-10.4); Platelet Count 80 10^3/uL (150-450); Red Blood Count 3.27 10^6 /uL (3.70-4.87); Red Cell Distribution Width 17 % (10-15); White Blood Count 11.8 10^3/uL (3.5-10.8)
[2020-08-23] MEDS ORDERED: Atropine 0.1 MG/ML 10 ml SYR (1 mg) ONE (20:56)
[2020-08-23] MEDS: Norepinephrine IV 16 MG in NS 0.9% 250 ml 234 ML IV SCH (22:20)
[2020-08-24] MEDS: Dextrose 50% Syringe 50 ml 25 GM/50 ML SYRINGE IV PUSH PRN ×3 (00:16→15:40)
[2020-08-24] MEDS: Propofol* 20 ML VIAL - FOR IV LINE PRIMING ONLY SCH ×2 (00:18→11:48)
[2020-08-24] MEDS: Chlorhexidine MOUTHWASH 0.12% 15 ML UDC TOPICAL SCH ×6 (00:20→20:22)
[2020-08-24] MEDS: Heparin 5000 UNITS/ML 1 mL VIAL SUBCUT SCH ×3 (00:21→18:40)
[2020-08-24] MEDS: D10W 1000 ml BAG 1,000 ML IV SCH ×2 (00:51→11:47)
[2020-08-24] MEDS: PHENYLEPHRINE IV SCH ×2 (02:38→10:33)
[2020-08-24] MEDS: NS 0.9% IV SCH ×2 (02:38→10:33)
[2020-08-24 03:36] LABS: Hematocrit 34 % (35-47); Hemoglobin 11.1 g/dL (12.0-16.0); Mean Corpuscular HGB Conc 33 g/dL (31-36); Mean Corpuscular Hemoglobin 30 pg (27-31); Mean Corpuscular Volume 91 fL (80-97); Mean Platelet Volume 8.8 fL (7.4-10.4); Platelet Count 70 10^3/uL (150-450); Red Cell Distribution Width 17 % (10-15); White Blood Count 13.5 10^3/uL (3.5-10.8)
[2020-08-24 03:47] LABS: INR 2.43 (0.82-1.09)
[2020-08-24 03:51] LABS: Albumin 2.3 g/dL (3.2-5.2); Albumin/Globulin Ratio 1.9 (1-3); Alkaline Phosphatase 244 U/L (34-104); Anion Gap 14 mmol/L (2-11); BUN/Creatinine Ratio 4.3 (8-20); Blood Urea Nitrogen 26 mg/dL (6-24); CO2 Carbon Dioxide 19 mmol/L (22-32); Calcium 6.9 mg/dL (8.6-10.3); Chloride 100 mmol/L (101-111); EGFR African American 9.1 (>60); EGFR Non-African American 7.5 (>60); Globulin 1.2 g/dL (2-4); Glucose 91 mg/dL (70-100); Magnesium 1.6 mg/dL (1.9-2.7); Potassium 4.9 mmol/L (3.5-5.0); Sodium 133 mmol/L (135-145); Total Protein 3.5 g/dL (6.4-8.9)
[2020-08-24 05:06] LABS: Body Fluid Source Peritonial Fluid
[2020-08-24] MEDS ORDERED: Magnesium Sulfate IV 3 GM in NS 0.9% 100 ml BAG 100 ML IVPB ONE (05:14)
[2020-08-24 05:33] LABS: ALT 4684 U/L (7-52)
[2020-08-24 05:34] LABS: AST > 10000 U/L (13-39)
[2020-08-24 07:08] LABS: Hematocrit 34 % (35-47); Hemoglobin 11.2 g/dL (12.0-16.0); Mean Corpuscular HGB Conc 33 g/dL (31-36); Mean Corpuscular Hemoglobin 30 pg (27-31); Mean Corpuscular Volume 90 fL (80-97); Platelet Count 71 10^3/uL (150-450); Red Blood Count 3.76 10^6 /uL (3.70-4.87); Red Cell Distribution Width 17 % (10-15); White Blood Count 14.4 10^3/uL (3.5-10.8)
[2020-08-24 07:23] LABS: Albumin 2.1 g/dL (3.2-5.2); Albumin/Globulin Ratio 1.5 (1-3); Alkaline Phosphatase 274 U/L (34-104); BUN/Creatinine Ratio 4.3 (8-20); Blood Urea Nitrogen 26 mg/dL (6-24); CO2 Carbon Dioxide 17 mmol/L (22-32); Chloride 99 mmol/L (101-111); EGFR Non-African American 7.5 (>60); Globulin 1.4 g/dL (2-4); Glucose 72 mg/dL (70-100); Sodium 130 mmol/L (135-145); Total Protein 3.5 g/dL (6.4-8.9)
[2020-08-24 07:48] LABS: ALT 4546 U/L (7-52); AST > 10000 U/L (13-39); Anion Gap 14 mmol/L (2-11); Potassium 5.3 mmol/L (3.5-5.0)
[2020-08-24] MEDS ORDERED: Heparin 1,000 UNIT/ML 10 ml (10,000 UNITS) CATHLAB/DIALYSIS DIALYSIS ONE (08:00)
[2020-08-24 08:02] LABS: Fibrinogen 217.6 mg/dL (110.8-404.3); INR 2.51 (0.82-1.09)
[2020-08-24] MEDS: Norepinephrine IV 16 MG in NS 0.9% 250 ml 234 ML IV SCH ×3 (08:47→20:00)
[2020-08-24] MEDS: ZOSYN 3.375 GM Q12H per EXTENDED INFUSION IV SCH ×2 (08:48→20:24)
[2020-08-24] MEDS: Albumin Human 25% 12.5 GM/50 ML BTL IV PRN ×4 (09:26→13:57)
[2020-08-24 10:38] LABS: ABS Basophils 0.2 10^3/ul (0-0.2); ABS Eosinophils 0.2 10^3/ul (0-0.6); ABS Lymphocytes 0.6 10^3/ul (1.0-4.8); ABS Monocytes 0.3 10^3/ul (0-0.8); ABS Neutrophils 13.1 10^3/ul (1.5-7.7); ABS Nucleated RBC 0.4 10^3/ul; Eosinophil % 1.2 %; Lymphocyte % 4.2 %; Mean Platelet Volume 9.4 fL (7.4-10.4); Nucleated Red Blood Cells % 2.5
[2020-08-24 12:34] LABS: Body Fluid Mono 13 %
[2020-08-24] MEDS: Famotidine IV 10 MG/ML 2 ml VIAL (20 mg) IV SCH (17:06)
[2020-08-25] MEDS: Chlorhexidine MOUTHWASH 0.12% 15 ML UDC TOPICAL SCH (00:22)
[2020-08-25] MEDS: Dextrose 50% Syringe 50 ml 25 GM/50 ML SYRINGE IV PUSH PRN (02:14)
[2020-08-25] MEDS: PHENYLEPHRINE IV SCH (02:40)
[2020-08-25] MEDS: Norepinephrine IV 16 MG in NS 0.9% 250 ml 234 ML IV SCH (02:40)
[2020-08-25] MEDS: NS 0.9% IV SCH (02:40)
[2020-08-25 03:49] LABS: Hematocrit 30 % (35-47); Hemoglobin 9.4 g/dL (12.0-16.0); Mean Corpuscular HGB Conc 32 g/dL (31-36); Mean Corpuscular Hemoglobin 30 pg (27-31); Mean Corpuscular Volume 93 fL (80-97); Mean Platelet Volume 10.3 fL (7.4-10.4); Platelet Count 44 10^3/uL (150-450); Red Blood Count 3.17 10^6 /uL (3.70-4.87); Red Cell Distribution Width 17 % (10-15); White Blood Count 17.4 10^3/uL (3.5-10.8)
[2020-08-25 03:52] LABS: INR 2.42 (0.82-1.09)
[2020-08-25 04:08] LABS: Albumin 2.2 g/dL (3.2-5.2); Albumin/Globulin Ratio 1.8 (1-3); Calcium 7.7 mg/dL (8.6-10.3); EGFR African American 13.8 (>60); EGFR Non-African American 11.4 (>60); Globulin 1.2 g/dL (2-4); Magnesium 2.3 mg/dL (1.9-2.7); Potassium 4.9 mmol/L (3.5-5.0); Total Bilirubin 2.1 mg/dL (0.2-1.0); Total Protein 3.4 g/dL (6.4-8.9)
== END 2020-08-25 04:58 | disposition expired | DRG 919 ==
LOC: ED 03:37 → CHICATH 04:27 → ICU 07:00
PROVIDERS: ADMIT Internal Medicine Cardiovascular Disease; ATTEND Internal Medicine